=== PATIENT | female | born 1950 | race Caucasian/White ===

== ENCOUNTER 2016-07-08 07:55 | Emergency (ER) | payer BC, OTHER ==
[~2016-07-08] VITALS: Ht 165.1 cm; Wt 94.5 kg
[~2016-07-08 07:55] MED LIST: ACET-1256 PO; ALUMSUS2 PO; AMIO200T4 PO; AMLO5TAB2 PO; ARNI60 SQ; ASPCH81X PO; B-COTAB18 PO; BISA10SU7 PR; CALC667C4 PO; CHOL2000 PO; CLOP1TAB15 PO; DOCU100C31 PO; ERGO1CAP41 PO; FURO80TA63 PO; GABA1CAP4 PO; GEMF600T3 PO; INSDGIPEN SC; ISOS60TA25 PO; LPR100 PO; LPT40 PO; LYR25 PO; NVLGI/PEN SQ; ONDA4TAB46 PO; PANT40TA PO; POLY3350 PO
[2016-07-08 08:03] VITALS: Ht 165.1 cm; Wt 94.5 kg
[2016-07-08] MEDS ORDERED: LIDOCAINE/EPINEPH/TETRACAINE 1 EA SYR EXT STA (09:06)
[2016-07-08] MEDS ORDERED: AMOX500C3 PO (11:00)
[2016-07-08 11:21] VITALS: BP 155/64; PULSE 61; TEMP 36.5; O2SAT 97
--- NOTE | 2016-07-08 14:01 | EMERGENCY ROOM VISIT NOTE ---
History First contact with patient: 08:34 Chief Complaint: FALL Stated Complaint: FALL History of Present Illness The patient is a 66 year old female who presents to the Emergency Room with complaints of fall that occurred about one hour ago at home. The patient has a history of diabetes with a right below the knee amputation. The patient has had a very slow healing process over the incision of the AP patient. She follows weekly with the wound care clinic. The patient got out of bed today, and was using her walker to ambulate. She lost her balance, and fell forward over the walker. She struck her right leg against the walker, which caused a small area to dehisce. The patient has had persistent bleeding from the dehisced area and she is on Plavix. The patient did not strike her head or lose consciousness. She does not have extremity pain. Her primary concern is for her leg. She has an appointment with the wound care clinic in 6 days. She is without other complaints. Review of Systems More than 10 systems were reviewed and otherwise negative with the exception of history of present illness. 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 (17) Gangrene (18) GI (gastrointestinal bleed) (19) Gout (20) History of colon cancer (21) Hx of right BKA (22) Hypercholesterolemia (23) Hyperlipidemia (24) Hypertension (25) Hypertension (26) Ischemic ulcer of foot (27) Kidney disease (28) Obesity (29) Paroxysmal supraventricular tachycardia (30) Peripheral artery disease (31) Post-polypectomy bleeding (32) PVD (peripheral vascular disease) (33) Wound infection Surgical Problems: (1) Amputated toe of left foot (2) History of cataract extraction (3) History of colon resection (4) History of hysterectomy (5) History of tonsillectomy Family History FHx: musculoskeletal disease Social History Smoking Status: Never Smoker Drug Use: none Marital Status: Housing Status: lives with significant other Occupation Status: retired Current/Historical Medications Scheduled Amiodarone Hcl (Cordarone), 200 MG PO BID Amlodipine Besylate (Norvasc), 5 MG PO QAM Amoxicillin (Amoxil), 500 MG PO TID Aspirin (Aspirin Chewable), 81 MG PO DAILY Atorvastatin (Atorvastatin Calcium), 40 MG PO QAM B-Complex Vitamins (Vitamin B Complex), 1 TAB PO QAM Calcium Acetate (Phoslo 667 Mg), 1 CAP PO TIDM Cholecalciferol (Vitamin D3), 2,000 UNITS PO QAM Clopidogrel (Plavix), 75 MG PO QAM Darbepoetin (Aranesp Albumin Free), 60 MCG SQ WK Furosemide (Lasix), 80 MG PO BID Gabapentin (Gabapentin), 300 MG PO BID Gemfibrozil (Lopid), 600 MG PO BID Insulin Glargine (Lantus Solostar), 36 UNITS SC AMPM Isosorbide Mononitrate Ext Rel (Imdur Ext Rel), 60 MG PO QAM Metoprolol Tartrate (Metoprolol Tartrate), 100 MG PO BID Pregabalin (Lyrica), 25 MG PO HS Scheduled PRN Acetaminophen (Tylenol), 1,000 MG PO Q8 PRN for MILD PAIN Allergies Coded Allergies: No Known Allergies (Verified , 07/08/16) Physical Exam Vital Signs Date Time Temp Pulse Resp B/P Pulse Ox O2 Delivery O2 Flow Rate FiO2 07/08/16 11:21 36.5 61 155/64 97 07/08/16 09:49 55 18 152/54 96 Room Air 07/08/16 08:03 36.5 61 18 145/59 98 Room Air Pain Rating (0-10): 0 Physical Exam VITALS: Vitals are noted on the nurse's note and reviewed by myself. Vital signs stable. GENERAL: Well-developed, well-nourished, white female, who is in no acute distress and resting comfortably. Patient is cooperative with the examination. HEAD: Normocephalic atraumatic. EARS: External ear normal. External auditory canals clear, tympanic membranes pearly ross without erythema or effusion bilaterally. EYES: Pupils equal round and reactive to light and accommodation. Conjunctivae without injection, sclerae without icterus. Extraocular movements intact. NECK: Supple without nuchal rigidity. No lymphadenopathy. No thyromegaly. Cervical spine is nontender. HEART: Regular rate and rhythm without murmurs gallops or rubs. LUNGS: Clear to auscultation bilaterally without wheezes, rales or rhonchi. No retractions or accessory muscle use. MUSCULOSKELETAL: No injury to the bilateral upper extremities or the left lower extremity. The right lower extremity is with a below the knee amputation of the right ankle and foot. The patient has a fairly well-healed incision from her amputation laterally. The center and medial aspect has a 4.0 cm long area of dehiscence. There is oozing of blood from this area. NEURO: Patient was alert and oriented to person place and time. CN II through XII grossly intact. Medical Decision & Procedures Medications Administered Medications (Trade) Dose Ordered Sig/Sheela Route Start Time Stop Time Status Last Admin Dose Admin Tetracaine/ Epinephrine/ Lidocaine (L.e.t. Gel 4%/ 1:100/0.5%) 1 ea NOW STAT EXT 07/08/16 09:06 07/08/16 09:07 DC 07/08/16 09:21 1 EA Procedure Laceration repair. Patient elects to have their laceration repaired. Verbal consent was obtained to perform the procedure. There is an abundance of materials available for the procedure. Patient is not allergic to latex. Using sterile technique the wound was cleaned with Betadine. The area was sterilely draped. LEG Gel was used to anesthetize the right leg dehisced wound/ laceration. Once the patient was anesthetized, the wound was copiously irrigated under pressure with sterile saline. The wound was explored and there were no deep structures injured such as tendons, bone, or significant blood vessels. The laceration was repaired using 7 simple interrupted 4-0 nylon sutures with the wound edges being well approximated. Hemostasis was achieved. The area was cleaned with sterile saline and dressed with bacitracin ointment and bandage. Patient tolerated the procedure well without complications. Blood loss was negligible. ED Course Physical exam and history were performed. Nursing notes and EMR were reviewed. Patient appears to have fallen and suffered injury to her right lower leg primarily in the form of a wound dehisced. The patient does not appear to have suffered additional injury, and otherwise appears quite pleasant. I have concern for the patient's wound as the skin in the area is thin, and although she does not have a true laceration, I am highly concerned that this dehiscence will worsen. I discussed options of care with the patient, and overall we agree that suture repair is likely going to provide the best possible outcome for the patient. The wound was repaired as above, and the patient tolerated the procedure well. I do have concern that with her diabetic history she will be at risk for infection. She is evidently tolerated amoxicillin well, and she has been given this previously by the wound clinic. I will give her a week prescription of this to reduce risk of infection. She has an upcoming appointment in 6 days with the wound care clinic, and I highly recommend that she keep that appointment. The patient was pleased with this plan and voiced understanding. She was discharged home with her who will be able to monitor her symptoms. She is to take every precaution to prevent further falls. The chart was completed utilizing [employer] Speech Voice Recognition Software. Grammatical errors, random word insertions, pronoun errors, and incomplete sentences are an occasional consequence of this system due to software limitations, ambient noise, and hardware issues. Any formal questions or concerns about the content, text, or information contained within the body of this dictation should be directly addressed to the provider for clarification. . Medical Decision Differential diagnosis includes, but is not limited to: Fall, laceration, abrasion, wound dehiscence, musculoskeletal injury, and others Impression Primary Impression: Fall Additional Impression: Wound dehiscence Departure Information Dispostion Home / Self-Care Condition GOOD Prescriptions Amoxicillin (AMOXIL) 500 Mg Cap 500 MG PO TID for 7 Days, #21 CAP Prov: Amol Figueroa PA-C 07/08/16 Forms HOME CARE DOCUMENTATION FORM, IMPORTANT VISIT INFORMATION Patient Instructions A Signature Page, [facility] Additional Instructions You were seen and evaluated today on an emergency basis only. This is not a substitute for, or an effort to provide, complete comprehensive medical care. It is not possible to recognize and treat all injuries or illnesses in a single emergency department visit. For this reason it is recommended that you followup with the wound clinic on Wednesday as scheduled. They will help determine the timeframe for removal of your sutures. Take amoxicillin 500 mg 3 times daily for the next 7 days. You are welcome to return to the emergency department anytime with new, worsening, or concerning symptoms. Problem Qualifiers
[2016-07-23] MEDS ORDERED: AMOX250C3 PO (10:14)
[2016-10-02] MEDS ORDERED: ERGO1CAP41 PO (00:13)
[2016-10-11] MEDS ORDERED: SACC250C3 PO (11:40)
[2016-10-11] MEDS ORDERED: AMOX875T PO (11:40)
[2016-10-11] MEDS ORDERED: INSDGIPEN SQ (11:40)
[2016-10-11] MEDS ORDERED: IMD2X PO (11:40)
[2016-10-11] MEDS ORDERED: LSX40 PO (11:40)
[2016-10-11] MEDS ORDERED: VNTHFA/IN INH (11:40)
[2016-10-11] MEDS ORDERED: LVQ250 PO (11:40)
[2016-12-10] MEDS ORDERED: LEVO25TA PO (10:41)
== END 2016-07-08 11:22 | disposition home or self-care (01) ==
LOC: C.EDB 07:56
DX: T81.31XA Disruption of external operation (surgical) wound, not elsewhere classified, initial encounter (principal); W19.XXXA Unspecified fall, initial encounter; E11.43 Type 2 diabetes mellitus with diabetic autonomic (poly)neuropathy; Z89.511 Acquired absence of right leg below knee; Z98.890 Other specified postprocedural states; Z79.01 Long term (current) use of anticoagulants; I50.9 Heart failure, unspecified; Z85.038 Personal history of other malignant neoplasm of large intestine; N18.6 End stage renal disease; I12.0 Hypertensive chronic kidney disease with stage 5 chronic kidney disease or end stage renal disease; M10.9 Gout, unspecified; E78.00 Pure hypercholesterolemia, unspecified; E66.9 Obesity, unspecified; Z90.710 Acquired absence of both cervix and uterus; Z90.49 Acquired absence of other specified parts of digestive tract; Z98.49 Cataract extraction status, unspecified eye; Z79.4 Long term (current) use of insulin; Z79.899 Other long term (current) drug therapy; Z79.82 Long term (current) use of aspirin; I73.9 Peripheral vascular disease, unspecified; I47.1 Supraventricular tachycardia

== ENCOUNTER → 2016-09-21 | Outpatient (CLI) | payer BC ==
[~2016-09-21] MED LIST changes: -ALUMSUS2 PO; +AMOX875T PO; -BISA10SU7 PR; +FURO-85 PO; +IMD2X PO; +INSDGIPEN SQ; +LEVO25TA PO; +LSX40 PO; +LVQ250 PO; -ONDA4TAB46 PO; -PANT40TA PO; -POLY3350 PO; +SACC250C3 PO; +SENN-65 PO; +TRAM-10 PO; +VNTHFA/IN INH; +ZOLP5TAB6 PO; +[UNRECOGNIZED DRUG - CODE] INJ
[2016-09-21 10:01] LABS: ESTIMATED AVERAGE GLUCOSE 157 mg/dl; HA1C FLAG Normal (Normal)
[2016-09-21 11:04] LABS: ALB/GLOB RATIO 0.7 (0.9-2); ALKALINE PHOSPHATASE 92 U/L (45-117); ALT/SGPT 25 U/L (12-78); AST/SGOT 14 U/L (15-37); BLOOD UREA NITROGEN 60 mg/dl (7-18); BUN/CREATININE RATIO 8.1 (10-20); CALCIUM 8.4 mg/dl (8.5-10.1); CARBON DIOXIDE 30 mmol/L (21-32); CHLORIDE 92 mmol/L (98-107); CHOLESTEROL 304 mg/dl (0-200); CHOLESTEROL/HDL RATIO 10.9; GLUCOSE 141 mg/dl (70-99); HDL CHOLESTEROL 28 mg/dl; POTASSIUM 4.3 mmol/L (3.5-5.1); SODIUM 133 mmol/L (136-145); TRIGLYCERIDES 1516 mg/dl (0-150)
== END | disposition home or self-care (01) ==
LOC: C.LAB1850 06:56
PROVIDERS: ATTEND Family Medicine
DX: E78.5 Hyperlipidemia, unspecified (principal); E11.8 Type 2 diabetes mellitus with unspecified complications

== ENCOUNTER 2016-10-01 23:07 | Inpatient (IN) | payer BC, OTHER ==
[~2016-10-01] VITALS: Ht 165.1 cm; Wt 102.3 kg
[~2016-10-01 23:07] MED LIST changes: -AMOX875T PO; -DOCU100C31 PO; -ERGO1CAP41 PO; -FURO-85 PO; -IMD2X PO; -INSDGIPEN SQ; -LEVO25TA PO; -LSX40 PO; -LVQ250 PO; -NVLGI/PEN SQ; -SACC250C3 PO; -SENN-65 PO; -TRAM-10 PO; -VNTHFA/IN INH; -ZOLP5TAB6 PO; -[UNRECOGNIZED DRUG - CODE] INJ
[2016-10-01] MEDS ORDERED: VANCOMYCIN INJ 2,000 MG in SODIUM CHLORIDE 0.9% 250ML 250 ML IV STA (23:23)
[2016-10-01] MEDS ORDERED: PIPERACILLIN/TAZOBACTAM 4.5 GM/100ML D5W IV STA (23:23)
[2016-10-01] MEDS ORDERED: VANCOMYCIN INJ 2,000 MG in SODIUM CHLORIDE 0.9% 500ML 500 ML IV STA (23:28)
[2016-10-01 23:48] LABS: BASO % 0.5 %; BASO ABS # 0.03 K/uL (0-0.2); COMPLETE YES; EOS % 0.6 %; HEMATOCRIT 29.8 % (37-47); IG% 0.3 %; LYMPH % 14.5 %; LYMPH ABS # 0.93 K/uL (1.2-3.4); MEAN CELL VOLUME 93.4 fL (80-100); MEAN CORPUSCULAR HEMOGLOBIN 32.3 pg (25-34); MEAN CORPUSCULAR HGB CONC 34.6 g/dl (32-36); MEAN PLATELET VOLUME 9.3 fL (7.4-10.4); MONO % 6.6 %; NEUT % 77.5 %; PLATELET COUNT 158 K/uL (130-400); RED BLOOD COUNT 3.19 M/uL (4.2-5.4); WHITE BLOOD COUNT 6.41 K/uL (4.8-10.8)
[2016-10-01 23:48] LABS: ISTAT CREATININE 4.1 mg/dl (0.6-1.3); ISTAT HEMOGLOBIN 9.9 g/dl (12.0-16.0); ISTAT IONIZED CALCIUM 1.03 mmol/l (1.12-1.32)
[2016-10-01] MEDS ORDERED: IBUPROFEN 600 MG TAB PO STA (23:48)
[2016-10-01 23:54] LABS: VEN BLD GAS O2 SATURATION 74.8 %; VEN BLOOD GAS BASE EXCESS 5.8 mmol/L; VENOUS BLOOD GAS PCO2 40 mmHg (38.0-50.0); VENOUS BLOOD GAS PO2 39 mmHg
[2016-10-01 23:56] LABS: INR 1.2 (0.9-1.1); PROTHROMBIN TIME (PATIENT) 12.4 SECONDS (9.0-12.0)
[2016-10-02] VITALS (25 sets, daily range): BP systolic 105–181; BP diastolic 50–72; PULSE 60–97; TEMP 36.6–37.9; O2SAT 90–100; BMI 39.3
[2016-10-02] MEDS ORDERED: DOCU100C31 PO (00:11)
[2016-10-02 00:13] LABS: BUN/CREATININE RATIO 5.9 (10-20); CALCIUM 8.7 mg/dl (8.5-10.1); CKMB/CK RATIO 0.8 (0-3.0); CREATININE 4.2 mg/dl (0.60-1.20); MAGNESIUM 1.9 mg/dl (1.8-2.4); POTASSIUM 4.1 mmol/L (3.5-5.1)
[2016-10-02] MEDS ORDERED: ERGO500011 PO (00:13)
[2016-10-02] MEDS ORDERED: FURO-85 PO (00:14)
[2016-10-02] MEDS ORDERED: NVLGI/PEN SQ (00:16)
[2016-10-02] MEDS ORDERED: INSDGIPEN SQ (00:23)
[2016-10-02 00:25] LABS: URINE APPEARANCE CLEAR (CLEAR); URINE BILIRUBIN NEG (NEG); URINE COLOR YELLOW; URINE NITRITE NEG (NEG); URINE PH >= 9.0 (4.5-7.5); URINE SPECIFIC GRAVITY 1.012 (1.000-1.030); UROBILINOGEN NEG (NEG); ZZURINE CULT IF INDIC CATH NO
[2016-10-02] MEDS ORDERED: [UNRECOGNIZED DRUG - CODE] INJ (00:29)
[2016-10-02 00:32] LABS: MANUAL MICROSCOPIC REQUIRED? NO; REVIEW REQ? NO; SULFASALICYLIC ACID POS (NEG)
[2016-10-02] MEDS ORDERED: TRAM-10 PO (00:32)
[2016-10-02] MEDS ORDERED: ZOLP5TAB6 PO (00:35)
[2016-10-02] MEDS ORDERED: SENN-65 PO (00:37)
[2016-10-02] MEDS ORDERED: GLUCAGON FOR INJ 1 MG VIAL SQ PRN (01:00)
[2016-10-02] MEDS ORDERED: VANCOMYCIN INJ 1,000 MG in SODIUM CHLORIDE 0.9% 250ML 250 ML IV STA (01:00)
[2016-10-02] MEDS ORDERED: ONDANSETRON INJ 2 MG/ML 2 ML VIAL IV PRN (01:00)
[2016-10-02] MEDS ORDERED: GLUCOSE 40% GEL 15 GM TUBE PO PRN (01:00)
[2016-10-02] MEDS ORDERED: GLUCOSE 10 TABS/TUBE PO PRN (01:00)
[2016-10-02] MEDS ORDERED: DEXTROSE 50% 50 ML SYR IV PRN (01:00)
[2016-10-02] MEDS ORDERED: DOCUSATE SODIUM/SENNA 50/8.6MG TAB PO PRN (01:00)
[2016-10-02] MEDS ORDERED: ZOLPIDEM TARTRATE 5 MG TAB PO PRN (01:00)
[2016-10-02] MEDS ORDERED: TRAMADOL HCL 50 MG TAB PO PRN (01:00)
[2016-10-02] MEDS ORDERED: LEVALBUTEROL 1.25MG/0.5ML NEB INH PRN (01:45)
[2016-10-02] MEDS ORDERED: IPRATROPIUM BROMIDE NEB SOLN 0.02% 2.5 ML VIAL INH PRN (01:45)
--- NOTE | 2016-10-02 01:51 | EMERGENCY ROOM VISIT NOTE ---
History Report prepared by Jacobo: Yecenia Ellison Under the Supervision of: Marin KoenigO. First contact with patient: 23:16 Chief Complaint: FEVER Stated Complaint: FEVER, CHILLS, SHAKY History of Present Illness The patient is a 66 year old female who presents to the Emergency Room with complaints of a constant fever beginning just CAR STOWER. Per nursing staff the patient was at dialysis and [facility] shaking, feeling week, fever of 103, and hypoxia. EMS reports that the patient was 79% on room air at arrival. She denies any shortness of breath, headache, chest pain , cough, productive sputum, asthma, COPD, abdominal history, nausea, vomiting, urinary symptoms, and blood clot history. The patient is s/p right knee amputation for PAD and cellulitis. She notes that her chills began last night. She has no other complaints at this time. She did receive a total of 3 hours worth of dialysis and was pulled off because of her shaking 45 minutes prior to the conclusion of her dialysis. Source of History: patient Onset: just CAR STOWER Position: other (global) Symptom Intensity: 103 Quality: other (fever) Timing: constant Modifying Factors (Worsening): breathing Associated Symptoms: + fevers, + weakness, No SOB, No abdominal pain, No chest pain, No cough, No diarrhea, No headache, No nausea, No urinary symptoms, No vomiting Review of Systems See HPI for pertinent positives & negatives. A total of 10 systems reviewed and were otherwise negative. Past Medical & Surgical Medical Problems: (1) Acute on chronic renal failure (2) Amputated toe of left foot (3) Anemia (4) Anemia (5) Cellulitis (6) CHF (congestive heart failure) (7) Colon cancer (8) Diabetes mellitus (9) Diabetes mellitus (10) Diabetic neuropathy (11) Diabetic ulcer of left great toe (12) Elevated troponin (13) End stage renal disease (14) End-stage renal disease on hemodialysis (15) ESRD on dialysis (16) Fistula (17) Gangrene (18) GI (gastrointestinal bleed) (19) Gout (20) History of colon cancer (21) Hx of right BKA (22) Hypercholesterolemia (23) Hyperlipidemia (24) Hypertension (25) Hypertension (26) Hypoxia (27) Ischemic ulcer of foot (28) Kidney disease (29) Obesity (30) Paroxysmal supraventricular tachycardia (31) Peripheral artery disease (32) Post-polypectomy bleeding (33) PVD (peripheral vascular disease) (34) SIRS (systemic inflammatory response syndrome) (35) Wound infection Surgical Problems: (1) Amputated toe of left foot (2) History of cataract extraction (3) History of colon resection (4) History of hysterectomy (5) History of tonsillectomy Family History FHx: musculoskeletal disease Social History Smoking Status: Never Smoker Drug Use: none Marital Status: Housing Status: lives with significant other Occupation Status: retired Current/Historical Medications Scheduled Amiodarone Hcl (Cordarone), 200 MG PO BID Amlodipine Besylate (Norvasc), 5 MG PO QAM Atorvastatin (Atorvastatin Calcium), 40 MG PO QAM B-Complex Vitamins (Vitamin B Complex), 1 TAB PO QAM Calcium Acetate (Phoslo 667 Mg), 667 MG PO TIDM Clopidogrel (Plavix), 75 MG PO QAM Darbepoetin (Aranesp Albumin Free), 60 MCG SQ WK Docusate Sodium (Docusate Sodium), 100 MG PO BID Ergocalciferol (Vitamin D 15071 Unit), 50,000 UNITS PO WK Furosemide (Lasix), 20 MG PO BID Gabapentin (Gabapentin), 300 MG PO BID Gemfibrozil (Lopid), 600 MG PO BID Insulin Aspart (Novolog Flexpen), SQ ACHS Insulin Glargine (Lantus Solostar), 36 UNITS SC QAM Insulin Glargine (Lantus Solostar), 70 UNITS SQ QPM Isosorbide Mononitrate Ext Rel (Imdur Ext Rel), 60 MG PO QAM Metoprolol Tartrate (Metoprolol Tartrate), 100 MG PO BID Paricalcitol (Paricalcitol), 1.5 ML INJ 3XWK Pregabalin (Lyrica), 25 MG PO BID Scheduled PRN Acetaminophen (Tylenol), 1,000 MG PO Q8 PRN for MILD PAIN Senna/Docusate Sod (Senokot S), 1 TAB PO DAILY PRN for Constipation Tramadol (Ultram), 50 MG PO Q4H PRN for Pain Zolpidem Tartrate (Zolpidem Tartrate), 5 MG PO HS PRN for Insomnia Allergies Coded Allergies: No Known Allergies (Verified , 07/08/16) Physical Exam Vital Signs Date Time Temp Pulse Resp B/P Pulse Ox O2 Delivery O2 Flow Rate FiO2 10/02/16 00:00 99 20 139/63 92 Nasal Cannula 4.0 10/01/16 23:30 88 10/01/16 23:17 91 Non-Rebreather 15.0 10/01/16 23:11 38.1 81 22 175/75 79 Room Air Physical Exam GENERAL: sitting up in bed, sever distress, ill appearing, on non-rebreather EYE EXAM: normal conjunctiva OROPHARYNX: no exudate, no erythema, lips, buccal mucosa, and tongue normal and mucous membranes are moist NECK: supple, no nuchal rigidity, no adenopathy, non-tender, no JVD LUNGS: Clear to auscultation. Normal chest wall mechanics HEART: no murmurs, S1 normal and S2 normal. ABDOMEN: abdomen soft, non-tender, normo-active bowel sounds, no masses, no rebound or guarding. BACK: Back is symmetrical on inspection and there is no deformity, no midline tenderness, no CVA tenderness. SKIN: no rashes and no bruising UPPER EXTREMITIES: upper extremities are grossly normal. Fistula in place with positive bruit. LOWER EXTREMITIES: No pitting edema. RLE BKA. NEURO EXAM: Alert but slightly confused to year, cranial nerves II-XII grossly intact, normal speech, no gross weakness of arms, no gross weakness of legs. Medical Decision & Procedures ER Provider Diagnostic Interpretation: X-Ray results as stated below per my review: Chest X-Ray Enlarged cardiac silhouette, congestive changes bilaterally. Laboratory Results 10/01/16 23:33 Red Blood Count 3.19, Mean Corpuscular Volume 93.4, Mean Corpuscular Hemoglobin 32.3, Mean Corpuscular Hemoglobin Concent 34.6, Mean Platelet Volume 9.3, Neutrophils (%) (Auto) 77.5, Lymphocytes (%) (Auto) 14.5, Monocytes (%) (Auto) 6.6, Eosinophils (%) (Auto) 0.6, Basophils (%) (Auto) 0.5, Neutrophils # (Auto) 4.97, Lymphocytes # (Auto) 0.93, Monocytes # (Auto) 0.42, Eosinophils # (Auto) 0.04, Basophils # (Auto) 0.03 10/01/16 23:33 Test 10/01/16 00:00 10/01/16 23:28 10/01/16 23:33 10/01/16 23:34 Urine Color YELLOW Urine Appearance CLEAR (CLEAR) Urine pH >= 9.0 (4.5-7.5) Urine Specific [place] 1.012 (1.000-1.030) Urine Protein 1+ (NEG) Urine Glucose (UA) 1+ (NEG) Urine Ketones NEG (NEG) Urine Occult Blood TRACE (NEG) Urine Nitrite NEG (NEG) Urine Bilirubin NEG (NEG) Urine Urobilinogen NEG (NEG) Urine Leukocyte Esterase NEG (NEG) Urine WBC (Auto) 0 /hpf (0-5) Urine RBC (Auto) 0-4 /hpf (0-4) Urine Hyaline Casts (Auto) 1-5 /lpf (0-5) Urine Epithelial Cells (Auto) 10-20 /lpf (0-5) Urine Bacteria (Auto) NEG (NEG) Bedside Lactic Acid Venous 2.17 mmol/L (0.90-1.70) White Blood Count 6.41 K/uL (4.8-10.8) Red Blood Count 3.19 M/uL (4.2-5.4) Hemoglobin 10.3 g/dL (12.0-16.0) Hematocrit 29.8 % (37-47) Mean Corpuscular Volume 93.4 fL (80-100) Mean Corpuscular Hemoglobin 32.3 pg (25-34) Mean Corpuscular Hemoglobin Concent 34.6 g/dl (32-36) Platelet Count 158 K/uL (130-400) Mean Platelet Volume 9.3 fL (7.4-10.4) Neutrophils (%) (Auto) 77.5 % Lymphocytes (%) (Auto) 14.5 % Monocytes (%) (Auto) 6.6 % Eosinophils (%) (Auto) 0.6 % Basophils (%) (Auto) 0.5 % Neutrophils # (Auto) 4.97 K/uL (1.4-6.5) Lymphocytes # (Auto) 0.93 K/uL (1.2-3.4) Monocytes # (Auto) 0.42 K/uL (0.11-0.59) Eosinophils # (Auto) 0.04 K/uL (0-0.5) Basophils # (Auto) 0.03 K/uL (0-0.2) RDW Standard Deviation 53.5 fL (36.4-46.3) RDW Coefficient of Variation 15.7 % (11.5-14.5) Immature Granulocyte % (Auto) 0.3 % Immature Granulocyte # (Auto) 0.02 K/uL (0.00-0.02) Prothrombin Time 12.4 SECONDS (9.0-12.0) Prothromb Time International Ratio 1.2 (0.9-1.1) Venous Blood pH 7.49 (7.36-7.41) Venous Blood Partial Pressure CO2 40 mmHg (38.0-50.0) Venous Blood Partial Pressure O2 39 mmHg Venous Blood HCO3 30 mmol/L Venous Blood Oxygen Saturation 74.8 % Venous Blood Base Excess 5.8 mmol/L Est Creatinine Clear Calc Drug Dose 15.8 ml/min Estimated GFR () 11.9 Estimated GFR (Non- 10.3 BUN/Creatinine Ratio 5.9 (10-20) Calcium Level 8.7 mg/dl (8.5-10.1) Magnesium Level 1.9 mg/dl (1.8-2.4) Total Bilirubin 0.4 mg/dl (0.2-1) Direct Bilirubin 0.1 mg/dl (0-0.2) Aspartate Amino Transf (AST/SGOT) 20 U/L (15-37) Alanine Aminotransferase (ALT/SGPT) 21 U/L (12-78) Alkaline Phosphatase 90 U/L (45-117) Total Protein 7.7 gm/dl (6.4-8.2) Albumin 3.1 gm/dl (3.4-5.0) Chemistry Specimen Hemolysis Bedside Hemoglobin 9.9 g/dl (12.0-16.0) Bedside Hematocrit 29 % (37-47) Bedside Sodium 135 mEq/L (135-144) Bedside Potassium 4.3 mEq/L (3.3-5.0) Bedside Chloride 96 mEq/L (101-112) Bedside Total CO2 28 mEq/l (24-31) Anion Gap 17.0 mmol/L (16-25) Bedside Blood Urea Nitrogen 26 mg/dl (7-18) Bedside Creatinine 4.1 mg/dl (0.6-1.3) Bedside Glucose (other) 119 mg/dl (70-99) Bedside Ionized Calcium (Gabriella) 1.03 mmol/l (1.12-1.32) Test 10/02/16 00:00 10/02/16 00:36 Influenza Type A Antigen Neg for Influ A (NEG) Influenza Type B Antigen Neg for Influ B (NEG) Bedside Glucose 122 mg/dl (70-90) Laboratory results per my review. Medications Administered Medications (Trade) Dose Ordered Sig/Sheela Route Start Time Stop Time Status Last Admin Dose Admin Piperacillin Sod/ Tazobactam Sod 4.5 gm 4.5 gm NOW STAT IV 10/01/16 23:23 10/01/16 23:25 DC 10/01/16 23:46 4.5 GM Vancomycin HCl/ Sodium Chloride (Vancomycin Inj/ Nss 500ml) 540 ml @ 125 mls/hr NOW STAT IV 10/01/16 23:28 10/02/16 03:47 10/02/16 00:16 125 MLS/HR Ibuprofen (Motrin Tab) 600 mg NOW STAT PO 10/01/16 23:48 10/01/16 23:49 DC 10/02/16 00:10 600 MG ECG Indication: other (hypoxia) Rate (beats per minute): 90 Rhythm: sinus rhythm Findings: RBBB, ST depression (AVF), other (poor baseline in the inferior) Comparison ECG Date: 06/07/2016 Change: RBBB is old ED Course ED COURSE: Vital signs were reviewed and showed hypoxia The patients medical record was reviewed The above diagnostic studies were performed and reviewed. ED treatments and interventions as stated above. 2316: The patient was evaluated in room A2. A complete history and physical examination was performed. 2323: Zosyn IV 4.5gm IV. 2328: Vancomycin HCl 2000mg/Sodium Chloride 540ml @ 125mls/hr IV. 2348: Motrin Tab 600mg PO. 0008: I reviewed the patient's case with Dr. Ren. He will evaluate the patient for further management. 0014: I reevaluated the patient. She has no complaints and is on 5L of oxygen. 0027: Upon reevaluation, the patient is hemodynamically stable.I discussed my findings with the patient and she understands and agrees with the treatment plan. Based on the patients age, coexisting illnesses, exam and lab findings the decision to treat as an inpatient was made. The patient remained stable while under my care. The patient will be evaluated for further management. Medical Decision Differential diagnoses includes but is not limited to pneumonia, bronchitis, COPD/Asthma exacerbation, pneumothorax, pulmonary embolism, congestive heart failure, acute coronary syndrome Patient is a 66-year-old female who presents the ER for hypoxia with a pulse ox of 79% on room air and a fever of 104 per EMS. She was given Tylenol. Labs show no significant leukocytosis or anemia. BMP shows a creatinine of 4 which is appropriate for dialysis. Lactate is elevated at 2.1. BMP along with LFTs was unremarkable. Troponin was detectable but not positive. Chest x-ray shows slight pulmonary edema. UA was unremarkable. Influenza A and B were negative. ABG shows a pH is 7.49. Patient was initially placed on nonrebreather and this is titrated down to nasal cannula. Patient has absolutely no complaints at this time. I did update the at bedside. Patient was admitted to internal medicine on nasal cannula with new oxygen requirements. Chest x-ray does appear to be slightly wet but she does not appear clinically to be in fulminant failure. She is no chest pain or symptoms to suggest a PE at this time. With that elevated fever I do favor hits likely more infectious. She was covered with Zosyn and vancomycin. Patient was admitted to internal medicine. Consults Time Called: 1 Consulting Physician: Dr. Ren - [facility] [place] Returned Call: [phone] I reviewed the patient's case with Dr. Ren. He will evaluate the patient for further management. Impression Primary Impression: Hypoxia Additional Impressions: Fever Chronic anemia Lactic acidosis CHF (congestive heart failure) Scribe Attestation The scribe's documentation has been prepared under my direction and personally reviewed by me in its entirety. I confirm that the note above accurately reflects all work, treatment, procedures, and medical decision making performed by me. Departure Information Dispostion Being Evaluated By Hospitalist Referrals Renae Whitfield DO (PCP) Patient Instructions My [facility] Problem Qualifiers Additional Impressions: Fever Fever type: unspecified Qualified Codes: R50.9 - Fever, unspecified CHF (congestive heart failure) Congestive heart failure type: unspecified congestive heart failure type Congestive heart failure chronicity: acute Qualified Codes: I50.9 - Heart failure, unspecified
[2016-10-02] MEDS: LEVALBUTEROL 1.25MG/0.5ML NEB INH SCH ×4 (02:00→19:46)
[2016-10-02] MEDS: IPRATROPIUM BROMIDE NEB SOLN 0.02% 2.5 ML VIAL INH SCH ×4 (02:00→19:46)
[2016-10-02] MEDS ORDERED: LEVOFLOXACIN CONSULT ACTIVE PRN (02:30)
[2016-10-02] MEDS ORDERED: VANCOMYCIN CONSULT ACTIVE PRN (02:30)
[2016-10-02] MEDS ORDERED: PIPERACILL/TAZOBAC CONSULT ACTIVE PRN (02:30)
[2016-10-02] MEDS ORDERED: LEVALBUTEROL/IPRATROPIUM NEB INH SCH (03:00)
[2016-10-02] MEDS ORDERED: LEVOFLOXACIN / D5W 500 MG in PREMIXED IN D5W 100 ML IV SCH (04:00)
--- NOTE | 2016-10-02 05:41 | History and Physical ---
History & Physical Date & Time of Service: Oct 02, 2016 at 05:23 Chief Complaint: Hypoxia, Sirs Primary Care Physician: Bridget Ramirez History of Present Illness Source: patient, spouse The patient is a 66-year-old female who presents to the emergency department with shakes, generalized weakness, fever of 103 and hypoxemia of 79% on room air. Her symptoms initially began at dialysis in the morning, which she reports was cut short, and she was taken back to [facility] where she was getting rehabilitation following her right BKA surgery. Past Medical/Surgical History Medical Problems: (1) Acute on chronic renal failure Status: Resolved (2) Anemia Status: Resolved (3) Anemia Status: Resolved (4) Cellulitis Status: Resolved (5) CHF (congestive heart failure) Status: Chronic (6) Colon cancer Status: Resolved (7) Diabetes mellitus Status: Chronic (8) Diabetic neuropathy Status: Chronic (9) Diabetic ulcer of left great toe Status: Resolved (10) Elevated troponin Status: Resolved (11) End stage renal disease Status: Chronic (12) End-stage renal disease on hemodialysis Status: Chronic (13) Fistula Status: Chronic (14) Gangrene Status: Resolved (15) GI (gastrointestinal bleed) Status: Resolved (16) Gout Status: Chronic (17) Hypercholesterolemia Status: Chronic (18) Hyperlipidemia Status: Chronic (19) Hypertension Status: Chronic (20) Kidney disease Status: Chronic (21) Obesity Status: Chronic (22) Peripheral artery disease Status: Chronic (23) Post-polypectomy bleeding Status: Resolved Surgical Problems: (1) Amputated toe of left foot Status: Resolved (2) History of cataract extraction Status: Resolved (3) History of colon resection Status: Resolved (4) History of hysterectomy Status: Resolved (5) History of tonsillectomy Status: Resolved Family History FHx: musculoskeletal disease Social History Smoking Status: Never Smoker Smokeless Tobacco Use: No Alcohol Use: none Drug Use: none Marital Status: Housing status: lives with family Occupational Status: retired Immunizations History of Influenza Vaccine: Yes Influenza Vaccine Date: Apr 24, 2013 History of Tetanus Vaccine?: Unknown History of Pneumococcal: Pt refused History of Hepatitis B Vaccine: Unknown Multi-Drug Resistant Organisms History of MDRO: No Allergies Coded Allergies: No Known Allergies (Verified , 07/08/16) Home Medications Scheduled Amiodarone Hcl (Cordarone), 200 MG PO BID Amlodipine Besylate (Norvasc), 5 MG PO QAM Atorvastatin (Atorvastatin Calcium), 40 MG PO QAM B-Complex Vitamins (Vitamin B Complex), 1 TAB PO QAM Calcium Acetate (Phoslo 667 Mg), 667 MG PO TIDM Clopidogrel (Plavix), 75 MG PO QAM Darbepoetin (Aranesp Albumin Free), 60 MCG SQ WK Docusate Sodium (Docusate Sodium), 100 MG PO BID Ergocalciferol (Vitamin D 07688 Unit), 50,000 UNITS PO WK Furosemide (Lasix), 20 MG PO BID Gabapentin (Gabapentin), 300 MG PO BID Gemfibrozil (Lopid), 600 MG PO BID Insulin Aspart (Novolog Flexpen), SQ ACHS Insulin Glargine (Lantus Solostar), 36 UNITS SC QAM Insulin Glargine (Lantus Solostar), 70 UNITS SQ QPM Isosorbide Mononitrate Ext Rel (Imdur Ext Rel), 60 MG PO QAM Metoprolol Tartrate (Metoprolol Tartrate), 100 MG PO BID Paricalcitol (Paricalcitol), 1.5 ML INJ 3XWK Pregabalin (Lyrica), 25 MG PO BID Scheduled PRN Acetaminophen (Tylenol), 1,000 MG PO Q8 PRN for MILD PAIN Senna/Docusate Sod (Senokot S), 1 TAB PO DAILY PRN for Constipation Tramadol (Ultram), 50 MG PO Q4H PRN for Pain Zolpidem Tartrate (Zolpidem Tartrate), 5 MG PO HS PRN for Insomnia Review of Systems The patient denies chest pain, palpitations, cough, lower extremity swelling, vision change, hearing change, sore throat, chills, sweats, weight change, nausea, vomiting, abdominal pain, pelvic pain, blood in urine or stool, dysuria , urinary frequency or urgency, lightheadedness, dizziness, headache, memory loss, rash, abnormal bruising or bleeding, imbalance, focal weakness, numbness or tingling in arms or legs, arthralgias or myalgias, back or neck pain, night sweats, or allergy symptoms. The review of systems is otherwise negative other than for that already noted above, and at least 10 systems have been reviewed. Physical Exam Vital Signs Date Time Temp Pulse Resp B/P Pulse Ox O2 Delivery O2 Flow Rate FiO2 10/02/16 04:16 36.9 64 16 119/66 95 10/02/16 04:00 Nasal Cannula 4.0 10/02/16 01:55 73 18 93 Nasal Cannula 2.0 10/02/16 01:20 37.1 74 18 145/65 92 Nasal Cannula 4.0 10/02/16 01:09 37.8 93 19 142/56 Nasal Cannula 4.0 10/02/16 00:00 99 20 139/63 92 Nasal Cannula 4.0 10/01/16 23:30 88 10/01/16 23:17 91 Non-Rebreather 15.0 10/01/16 23:11 38.1 81 22 175/75 79 Room Air The patient is awake, alert and oriented 3, normocephalic and atraumatic, lying in bed and in no acute distress. HEENT--PERRL, EOMI, mucous membranes and oropharynx dry. Neck--supple, no JVD or bruits, thyroid normal, trachea midline, no adenopathy. Heart--normal S1 and S2, no extra beats, no murmurs, rubs or gallops. Lungs--coarse breath sounds bilaterally, no respiratory distress, no accessory muscle use. Abdomen--normal bowel sounds and soft, nontender and nondistended, no hernias or masses, no organomegaly. Extremities--right BKA-no cyanosis, clubbing or edema, with normal-appearing postsurgical wound. Left lower extremity with trace pitting edema, status post great toe amputation. Dermatologic--normal skin turgor, normal color, warm and dry, no abnormal lymph nodes, no rash. Neurologic--cranial nerves II through XII grossly intact. Rheumatologic--no acute findings. Psychiatric--normal affect. Diagnostics Laboratory Results Results Past 24 Hours Test 10/01/16 23:28 10/01/16 23:33 10/01/16 23:34 10/02/16 00:00 Range/Units Bedside Lactic Acid Venous 2.17 0.90-1.70 mmol/L White Blood Count 6.41 4.8-10.8 K/uL Red Blood Count 3.19 4.2-5.4 M/uL Hemoglobin 10.3 12.0-16.0 g/dL Hematocrit 29.8 37-47 % Mean Corpuscular Volume 93.4 80-100 fL Mean Corpuscular Hemoglobin 32.3 25-34 pg Mean Corpuscular Hemoglobin Concent 34.6 32-36 g/dl Platelet Count 158 130-400 K/uL Mean Platelet Volume 9.3 7.4-10.4 fL Neutrophils (%) (Auto) 77.5 % Lymphocytes (%) (Auto) 14.5 % Monocytes (%) (Auto) 6.6 % Eosinophils (%) (Auto) 0.6 % Basophils (%) (Auto) 0.5 % Neutrophils # (Auto) 4.97 1.4-6.5 K/uL Lymphocytes # (Auto) 0.93 1.2-3.4 K/uL Monocytes # (Auto) 0.42 0.11-0.59 K/uL Eosinophils # (Auto) 0.04 0-0.5 K/uL Basophils # (Auto) 0.03 0-0.2 K/uL RDW Standard Deviation 53.5 36.4-46.3 fL RDW Coefficient of Variation 15.7 11.5-14.5 % Immature Granulocyte % (Auto) 0.3 % Immature Granulocyte # (Auto) 0.02 0.00-0.02 K/uL Prothrombin Time 12.4 9.0-12.0 SECONDS Prothromb Time International Ratio 1.2 0.9-1.1 Venous Blood pH 7.49 7.36-7.41 Venous Blood Partial Pressure CO2 40 38.0-50.0 mmHg Venous Blood Partial Pressure O2 39 mmHg Venous Blood HCO3 30 mmol/L Venous Blood Oxygen Saturation 74.8 % Venous Blood Base Excess 5.8 mmol/L Sodium Level 136 136-145 mmol/L Potassium Level 4.1 3.5-5.1 mmol/L Chloride Level 95 98-107 mmol/L Carbon Dioxide Level 29 21-32 mmol/L Anion Gap 12.0 17.0 16-25 mmol/L Blood Urea Nitrogen 25 7-18 mg/dl Creatinine 4.20 0.60-1.20 mg/dl Est Creatinine Clear Calc Drug Dose 15.8 ml/min Estimated GFR () 11.9 Estimated GFR (Non- 10.3 BUN/Creatinine Ratio 5.9 10-20 Random Glucose 118 70-99 mg/dl Calcium Level 8.7 8.5-10.1 mg/dl Magnesium Level 1.9 1.8-2.4 mg/dl Total Bilirubin 0.4 0.2-1 mg/dl Direct Bilirubin 0.1 0-0.2 mg/dl Aspartate Amino Transf (AST/SGOT) 20 15-37 U/L Alanine Aminotransferase (ALT/SGPT) 21 12-78 U/L Alkaline Phosphatase 90 45-117 U/L Total Creatine Kinase 181 26-192 U/L Creatine Kinase MB 1.4 0.5-3.6 ng/ml Creatine Kinase MB Ratio 0.8 0-3.0 Troponin I 0.026 0-0.045 ng/ml Total Protein 7.7 6.4-8.2 gm/dl Albumin 3.1 3.4-5.0 gm/dl Chemistry Specimen Hemolysis Bedside Hemoglobin 9.9 12.0-16.0 g/dl Bedside Hematocrit 29 37-47 % Bedside Sodium 135 135-144 mEq/L Bedside Potassium 4.3 3.3-5.0 mEq/L Bedside Chloride 96 101-112 mEq/L Bedside Total CO2 28 24-31 mEq/l Bedside Blood Urea Nitrogen 26 7-18 mg/dl Bedside Creatinine 4.1 0.6-1.3 mg/dl Bedside Glucose (other) 119 70-99 mg/dl Bedside Ionized Calcium (Gabriella) 1.03 1.12-1.32 mmol/l Influenza Type A Antigen Neg for Influ A NEG Influenza Type B Antigen Neg for Influ B NEG Test 10/02/16 00:36 10/02/16 00:59 Range/Units Bedside Glucose 122 70-90 mg/dl Creatine Kinase MB Ratio 0-3.0 Microbiology Results 10/01/16 Blood Culture, Received Pending 10/01/16 Blood Culture, Received Pending EKG EKG shows normal sinus rhythm at 90 bpm, right bundle branch block, no acute ST- T changes, no change from 06/07/2016. Impression Assessment and Plan Hypoxia/upper respiratory infection--patient will be placed on vancomycin IV, Zosyn IV and levofloxacin IV per renal dosing. Xopenex with Atrovent nebulizer every 6 hours while awake and every 2 hours when necessary, guaifenesin extended release 600 mg by mouth twice a day, and Pulmicort respules 0.5 mg inhaled twice a day. Paroxysmal supraventricular tachycardia/hypertension/CHF--continue amiodarone 200 mg by mouth twice a day, amlodipine 5 mg by mouth every morning, clopidogrel 75 mg by mouth every morning, Aranesp 60 g every week, furosemide 20 mg by mouth twice a day, Imdur extended release 60 mg by mouth every morning and metoprolol tartrate 100 mg by mouth twice a day. Diabetes mellitus--continue Lantus insulin 36 units subcutaneous every morning and 70 units subcutaneous every afternoon, place on Accu-Cheks before meals and at bedtime with NovoLog coverage scale. 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 Jordan. Her usual dialysis days are Wednesday, and Wednesday. Continue vitamin B complex every morning, calcium acetate 667 mg by mouth 3 times a day with meals, and in the outpatient setting vitamin D 50,000 and Nexium is weekly and paricalcitol 1.5 ML's injected 3 times per week. Hypercholesterolemia--continue atorvastatin 40 mg by mouth every morning and gemfibrozil 600 mg by mouth twice a day. Peripheral neuropathy--continue gabapentin 300 mg by mouth twice a day and Lyrica 25 mg by mouth twice a day. Status post right BKA/[facility] rehabilitation--she was due to be discharged from rehabilitation in 3 days and then continue outpatient rehabilitation 2 times per week. We'll need to see if she is finished with inpatient [facility] and just can start outpatient rehabilitation next week after discharge. Level of Care Telemetry Advanced Directives Existing Advance Directive: No Existing Living Will: No Existing Power of Ad Setter: Yes Resuscitation Status FULL RESUSCITATION VTE Prophylaxis VTE Risk Assessment Done? Y/N: Yes Risk Level: High
[2016-10-02] MEDS ORDERED: PIPERACILL/TAZOBAC IV 3.375 GM in DEXTROSE 5% 100ML 100 ML IV SCH (06:00)
--- NOTE | 2016-10-02 06:36 | DIAGNOSTIC IMAGING REPORT ---
CHEST ONE VIEW PORTABLE CLINICAL HISTORY: fever dyspnea COMPARISON STUDY: 06/07/2016 FINDINGS: Persistent findings of mild congestive failure. Bony vasculature is prominent. Heart is moderately enlarged. Chronic elevation right hemidiaphragm. Possible superimposed infiltrate medial right base IMPRESSION: Findings of congestive failure, possibly with a superimposed medial right base infiltrative process. Electronically signed by: Cornell Malhotra M.D. 10/02/2016 6:34 AM Dictated Date/Time: 10/02/2016 6:32 AM
[2016-10-02] MEDS: BUDESONIDE 0.5 MG/2 ML VIAL (PULMICORT) INH SCH ×2 (07:12→19:46)
[2016-10-02] MEDS: CLOPIDOGREL BISULFATE 75 MG TAB PO SCH (08:07)
[2016-10-02] MEDS: AMIODARONE 200 MG TAB PO SCH ×2 (08:07→21:37)
[2016-10-02] MEDS: CALCIUM ACETATE 667MG GELCAP PO SCH ×3 (08:07→17:00)
[2016-10-02] MEDS: ATORVASTATIN 40 MG TAB PO SCH (08:07)
[2016-10-02] MEDS: AMLODIPINE BESYLATE 5 MG TAB PO SCH (08:08)
[2016-10-02] MEDS: GEMFIBROZIL 600 MG TAB PO SCH ×2 (08:08→21:37)
[2016-10-02] MEDS: DOCUSATE SODIUM 100 MG CAP PO SCH ×2 (08:09→21:36)
[2016-10-02] MEDS: ISOSORBIDE MONONITRATE 60 MG TABCR PO SCH (08:09)
[2016-10-02] MEDS: VITAMIN B COMPLEX TAB PO SCH (08:09)
[2016-10-02] MEDS: GUAIFENESIN 200 MG TAB PO SCH ×2 (08:09→21:38)
[2016-10-02] MEDS: GABAPENTIN 300 MG CAP PO SCH ×2 (08:10→21:36)
[2016-10-02] MEDS: METOPROLOL TARTRATE 100 MG TAB PO SCH ×2 (08:10→21:40)
[2016-10-02] MEDS: INSULIN ASPART 100 UNITS/ML 3 ML PEN SC SCH ×4 (08:19→21:42)
[2016-10-02] MEDS ORDERED: NURSING VERBAL MED ORDER ONE ×3 (09:00→23:00)
[2016-10-02] MEDS ORDERED: FUROSEMIDE 20 MG TAB PO SCH (09:00)
[2016-10-02] MEDS ORDERED: FUROSEMIDE 40 MG/4 ML VIAL ONE ×2 (09:01→09:43)
[2016-10-02] MEDS: PREGABALIN 25MG CAP PO SCH ×2 (09:12→21:36)
[2016-10-02 09:55] LABS: CKMB/CK RATIO 1.4 (0-3.0)
[2016-10-02] MEDS: PIPERACILL/TAZOBAC IV 4.5 GM in DEXTROSE 5% 100ML IV SCH ×2 (10:13→21:47)
[2016-10-02 11:35] LABS: BASO % 0.2 %; BASO ABS # 0.01 K/uL (0-0.2); COMPLETE YES; EOS % 0.6 %; HEMATOCRIT 27.5 % (37-47); IG% 0.3 %; LYMPH ABS # 0.33 K/uL (1.2-3.4); MEAN CELL VOLUME 93.2 fL (80-100); MEAN CORPUSCULAR HEMOGLOBIN 31.5 pg (25-34); MEAN CORPUSCULAR HGB CONC 33.8 g/dl (32-36); MEAN PLATELET VOLUME 9.3 fL (7.4-10.4); MONO % 5.7 %; NEUT % 88.2 %; PLATELET COUNT 130 K/uL (130-400); RED BLOOD COUNT 2.95 M/uL (4.2-5.4); WHITE BLOOD COUNT 6.65 K/uL (4.8-10.8)
[2016-10-02 11:51] LABS: INR 1.3 (0.9-1.1); PARTIAL THROMBOPLASTIN RATIO 1.2; PROTHROMBIN TIME (PATIENT) 13.5 SECONDS (9.0-12.0)
--- NOTE | 2016-10-02 12:46 | Pharmacy Progress Note ---
Pharmacy Antibiotic Consult Date of Service: Oct 02, 2016. Pharmacy Dosing Scope Pharmacy is consulted to initiate Vancomycin, Zosyn and Levaquin IV dosing therapy, order appropriate labs and adjust drug dose/frequency. Subjective The patient is a 66 year old female admitted on Oct 02, 2016 at 00:57 with upper respiratory infection (noted as SIRS) Patient was receiving her routine HD session and complained of feeling sick and the session was actually cut short. She was eventually transferred here from [facility] and started on broad spectrum antibiotics by Dr. Ren for upper respiratory infection (noted as SIRS) but surely would be considered HCAP. Objective Height (Feet): 5 Height (Inches): 5.00 Weight (Kilograms): 107.200 Lab Results (24hrs): Laboratory Tests Test 10/01/16 23:33 10/02/16 11:16 BUN/Creatinine Ratio 5.9 Blood Urea Nitrogen 25 mg/dl Creatinine 4.20 mg/dl White Blood Count 6.41 K/uL 6.65 K/uL Red Blood Count 3.19 M/uL 2.95 M/uL Hemoglobin 10.3 g/dL 9.3 g/dL Hematocrit 29.8 % 27.5 % Mean Corpuscular Volume 93.4 fL 93.2 fL Mean Corpuscular Hemoglobin 32.3 pg 31.5 pg Mean Corpuscular Hemoglobin Concent 34.6 g/dl 33.8 g/dl Platelet Count 158 K/uL 130 K/uL Mean Platelet Volume 9.3 fL 9.3 fL Neutrophils (%) (Auto) 77.5 % 88.2 % Lymphocytes (%) (Auto) 14.5 % 5.0 % Monocytes (%) (Auto) 6.6 % 5.7 % Eosinophils (%) (Auto) 0.6 % 0.6 % Basophils (%) (Auto) 0.5 % 0.2 % Neutrophils # (Auto) 4.97 K/uL 5.87 K/uL Lymphocytes # (Auto) 0.93 K/uL 0.33 K/uL Monocytes # (Auto) 0.42 K/uL 0.38 K/uL Eosinophils # (Auto) 0.04 K/uL 0.04 K/uL Basophils # (Auto) 0.03 K/uL 0.01 K/uL Micro Results: Item Value Date Time MRSA DNA Surveillance Screen Brett Batch 10/02/16 1236 Nasal Pending Blood Culture Received 4/6/17 2333 Blood Pending Blood Culture Received 10/01/16 2330 Blood Pending Recent Pertinent Medications Item Value Date Time Levofloxacin 250 50 ml @ 50 mls/hr 10/04/16 0400 mg/Prmx Q48H/IV Piperacillin Sod/ 120 ml @ 30 mls/hr 10/02/16 1000 Tazobactam Sod Q12H/IV 10/02/16 1013 4.5 gm/Dextrose Assessment & Plan Loading dose: Vancomycin 2000mg (~19mg/kg) IV X 1 dose then will check random level with AM labs tomorrow in this Hemodialysis patient. We will dose empirically based on each level and scheduled HD sessions which are normally on Wed, and Wednesday. Pharmacy will continue to follow and will adjust dose/frequency as necessary. Thank you
[2016-10-02 12:53] LABS: ALB/GLOB RATIO 0.7 (0.9-2); CALCIUM 8.6 mg/dl (8.5-10.1); CREATININE 5.2 mg/dl (0.60-1.20); MAGNESIUM 2.1 mg/dl (1.8-2.4); PHOSPHORUS 5.3 mg/dl (2.5-4.9); POTASSIUM 4.4 mmol/L (3.5-5.1)
[2016-10-02] MEDS ORDERED: HydrALAZINE HCL 20 MG/ML VIAL IV. PRN (13:15)
--- NOTE | 2016-10-02 14:20 | Nephrology Consultation ---
Nephrology Consultation Date & Providers Date of Consultation: Oct 02, 2016. [facility] [place] Referring Provider: Reason for Consultation Management of end-stage renal disease and hemodialysis while admitted to the hospital. History of Present Illness Umu is a 66-year-old female with past medical history significant for end- stage renal disease on hemodialysis secondary to hypertensive nephropathy, diabetes, recent right below-knee amputation, admitted to the hospital with respiratory failure and pneumonia. Nephrologic consult was requested for management of ESRD and dialysis. Electronic medical records including labs and imaging were reviewed in detail during patient's visit. Patient was seen with her at bedside and discussed management in detail with her . Umu has end-stage renal disease secondary to hypertension nephropathy currently on hemodialysis Wednesday, , Wednesday. Umu recently had right below-knee amputation and had been in [facility] rehab. Yesterday while she was on dialysis at [facility] she started having low-grade fever, chills and shaking and could not continue dialysis for long. She had 2 hours of dialysis and then she was sent to [facility] Emergency room for further evaluation. In the ED she was found to be hypoxic in room air with her oxygen saturation 79%, had chest x-ray which was concerning for mild pulmonary congestion and possible evolving right lower lobe pulmonary infiltrate. She was admitted with the diagnosis of pneumonia and started on empiric antibiotic therapy. This morning her oxygen saturation dropped again and she was on 6 liter nasal cannula but oxygen saturation was at around 80s and had to be put on non- rebreather. Denied chest pain. BP was stable. She received 80 of Lasix IV as she still makes some urine, she voided twice and currently her oxygen saturation improved on 2 liters nasal cannula. blood pressure seems to be stable. Electrolyte acceptable. Allergies Coded Allergies: No Known Allergies (Verified , 07/08/16) Inpatient Medications Current Inpatient Medications Medications (Trade) Dose Ordered Sig/Sheela Route Start Time Stop Time Status Last Admin Dose Admin Acetaminophen (Tylenol Tab) 1,000 mg Q8 PRN PO 10/02/16 01:00 11/01/16 00:59 Amiodarone HCl (Cordarone Tab) 200 mg BID PO 10/02/16 09:00 11/01/16 08:59 10/02/16 08:07 200 MG Amlodipine Besylate (Norvasc Tab) 5 mg QAM PO 10/02/16 09:00 11/01/16 08:59 10/02/16 08:08 5 MG Atorvastatin Calcium (Lipitor Tab) 40 mg QAM PO 10/02/16 09:00 11/01/16 08:59 10/02/16 08:07 40 MG Calcium Acetate (Phoslo Cap) 667 mg TIDM PO 10/02/16 08:00 11/01/16 07:59 10/02/16 13:02 667 MG Clopidogrel Bisulfate (plAVix TAB) 75 mg QAM PO 10/02/16 09:00 11/01/16 08:59 10/02/16 08:07 75 MG Docusate Sodium (coLACE CAP) 100 mg BID PO 10/02/16 09:00 11/01/16 08:59 10/02/16 08:09 100 MG Furosemide (Lasix Tab) 20 mg BID17 PO 10/02/16 09:00 11/01/16 08:59 10/02/16 08:08 20 MG Gabapentin (Neurontin Cap) 300 mg BID PO 10/02/16 09:00 11/01/16 08:59 10/02/16 08:10 300 MG Gemfibrozil (Lopid Tab) 600 mg BID PO 10/02/16 09:00 11/01/16 08:59 10/02/16 08:08 600 MG Insulin Glargine (Lantus Solostar Pen) 70 unit QPM SQ 10/02/16 21:00 11/01/16 20:59 Isosorbide Mononitrate (Imdur Ext Rel Tab) 60 mg QAM PO 10/02/16 09:00 11/01/16 08:59 10/02/16 08:09 60 MG Metoprolol Tartrate (Lopressor Tab) 100 mg BID PO 10/02/16 09:00 11/01/16 08:59 10/02/16 08:10 100 MG Pregabalin (Lyrica Cap) 25 mg BID PO 10/02/16 09:00 11/01/16 08:59 10/02/16 09:12 25 MG Tramadol HCl (Ultram Tab) 50 mg Q4H PRN PO 10/02/16 01:00 11/01/16 00:59 Zolpidem Tartrate (Ambien Tab) 5 mg HS PRN PO 10/02/16 01:00 11/01/16 00:59 Vitamin B Complex (Vitamin B Complex) 1 tab QAM PO 10/02/16 09:00 11/01/16 08:59 10/02/16 08:09 1 TAB Ondansetron HCl (Zofran Inj) 4 mg Q6H PRN IV 10/02/16 01:00 11/01/16 00:59 Insulin Aspart (novoLOG ASPART) SLIDING SCALE If C... ACHS SC 10/02/16 06:30 11/01/16 06:59 10/02/16 13:04 2 UNITS Glucose (Glucose 40% Gel) UD PRN PO 10/02/16 01:00 11/01/16 00:59 Glucose (Glucose Chew Tab) 1 tabs UD PRN PO 10/02/16 01:00 11/01/16 00:59 Dextrose (Dextrose 50% 50ML Syringe) 50 ml UD PRN IV 10/02/16 01:00 11/01/16 00:59 Glucagon (Glucagon Inj) 1 mg UD PRN SQ 10/02/16 01:00 11/01/16 00:59 Guaifenesin (Organidin Nr Tab) 600 mg BID PO 10/02/16 09:00 11/01/16 08:59 10/02/16 08:09 600 MG Budesonide (Pulmicort Respules 0.5MG/ 2ML Neb Soln) 0.5 mg BIDR INH 10/02/16 08:00 11/01/16 07:59 10/02/16 07:12 0.5 MG Ipratropium [place] (Atrovent 0.02% 0.5MG/2.5ML Neb) 0.5 mg Q6R INH 10/02/16 03:00 11/01/16 02:59 10/02/16 07:12 0.5 MG Levalbuterol (Xopenex 1.25MG/ 0.5ML Neb) 1.25 mg Q6R INH 10/02/16 03:00 11/01/16 02:59 10/02/16 07:12 1.25 MG Ipratropium [place] (Atrovent 0.02% 0.5MG/2.5ML Neb) 0.5 mg Q2H PRN INH 10/02/16 01:45 11/01/16 01:44 Levalbuterol 1.25 mg 1.25 mg Q2H PRN INH 10/02/16 01:45 11/01/16 01:44 Piperacillin Sod/ Tazobactam Sod/ Dextrose (Zosyn Iv/D5 100ml) 120 ml @ 30 mls/hr Q12H IV 10/02/16 10:00 10/09/16 09:59 10/02/16 10:13 30 MLS/HR Piperacillin Sod/ Tazobactam Sod (Consult) 1 ea UD PRN N/A 10/02/16 02:30 11/01/16 02:29 Vancomycin HCl (Consult) 1 ea UD PRN N/A 10/02/16 02:30 11/01/16 02:29 Levofloxacin 1 ea 1 ea UD PRN N/A 10/02/16 02:30 11/01/16 02:29 Levofloxacin/Prmx (Levaquin / D5W/ Premixed D5W) 50 ml @ 50 mls/hr Q48H IV 10/04/16 04:00 10/11/16 03:59 Hydralazine HCl (HydrALAZINE INJ) 10 mg Q4H PRN IV. 10/02/16 13:15 11/01/16 13:14 UNV Family History FHx: musculoskeletal disease Social History Smoking Status: Never Smoker Smokeless Tobacco Use: No Alcohol Use: none Drug Use: none Marital Status: Housing Status: lives with family Occupation: retired Review of Systems A complete review of systems was performed. Pertinent positives are noted above. All other systems are negative. Physical Exam Date Time Temp Pulse Resp B/P Pulse Ox O2 Delivery O2 Flow Rate FiO2 10/02/16 11:34 37.1 97 16 181/71 97 Room Air 10/02/16 08:08 36.6 60 20 105/64 100 10/02/16 08:00 Room Air 10/02/16 07:14 62 16 96 Nasal Cannula 2.0 10/02/16 04:16 36.9 64 16 119/66 95 10/02/16 04:00 Nasal Cannula 4.0 10/02/16 01:55 73 18 93 Nasal Cannula 2.0 10/02/16 01:20 37.1 74 18 145/65 92 Nasal Cannula 4.0 10/02/16 01:09 37.8 93 19 142/56 Nasal Cannula 4.0 10/02/16 00:00 99 20 139/63 92 Nasal Cannula 4.0 10/01/16 23:30 88 10/01/16 23:17 91 Non-Rebreather 15.0 10/01/16 23:11 38.1 81 22 175/75 79 Room Air GENERAL: middle aged female, AAA x 3, pleasant, ill-appearing, in mild respiratory distress. HEENT: Atraumatic, normocephalic. NECK: Supple, no JVD, no carotid bruit appreciated. ENT: No sinus tenderness MOUTH and THROAT: Moist oral mucosa, no oral ulcer or pharyngeal erythema RESPIRATORY: overall decreased BS. CARDIOVASCULAR: S1, S2 normal, rate rhythm regular. ABDOMEN: Soft, nontender, positive bowel sound. MUSCULOSKELETAL: No joint swelling, erythema or tenderness. Normal range of motion. SKIN: No skin rash EXTREMITY: trace left lower extremity edema, rt LE BKA NEURO: No gross focal neurological deficit, speech fluent. PSYCHIATRY: Normal mood and judgment Laboratory Results Last 24 Hours Test 10/01/16 23:28 10/01/16 23:33 10/01/16 23:34 10/02/16 00:00 Bedside Lactic Acid Venous 2.17 mmol/L White Blood Count 6.41 K/uL Red Blood Count 3.19 M/uL Hemoglobin 10.3 g/dL Hematocrit 29.8 % Mean Corpuscular Volume 93.4 fL Mean Corpuscular Hemoglobin 32.3 pg Mean Corpuscular Hemoglobin Concent 34.6 g/dl Platelet Count 158 K/uL Mean Platelet Volume 9.3 fL Neutrophils (%) (Auto) 77.5 % Lymphocytes (%) (Auto) 14.5 % Monocytes (%) (Auto) 6.6 % Eosinophils (%) (Auto) 0.6 % Basophils (%) (Auto) 0.5 % Neutrophils # (Auto) 4.97 K/uL Lymphocytes # (Auto) 0.93 K/uL Monocytes # (Auto) 0.42 K/uL Eosinophils # (Auto) 0.04 K/uL Basophils # (Auto) 0.03 K/uL RDW Standard Deviation 53.5 fL RDW Coefficient of Variation 15.7 % Immature Granulocyte % (Auto) 0.3 % Immature Granulocyte # (Auto) 0.02 K/uL Prothrombin Time 12.4 SECONDS Prothromb Time International Ratio 1.2 Venous Blood pH 7.49 Venous Blood Partial Pressure CO2 40 mmHg Venous Blood Partial Pressure O2 39 mmHg Venous Blood HCO3 30 mmol/L Venous Blood Oxygen Saturation 74.8 % Venous Blood Base Excess 5.8 mmol/L Sodium Level 136 mmol/L Potassium Level 4.1 mmol/L Chloride Level 95 mmol/L Carbon Dioxide Level 29 mmol/L Anion Gap 12.0 mmol/L 17.0 mmol/L Blood Urea Nitrogen 25 mg/dl Creatinine 4.20 mg/dl Est Creatinine Clear Calc Drug Dose 15.8 ml/min Estimated GFR () 11.9 Estimated GFR (Non- 10.3 BUN/Creatinine Ratio 5.9 Random Glucose 118 mg/dl Calcium Level 8.7 mg/dl Magnesium Level 1.9 mg/dl Total Bilirubin 0.4 mg/dl Direct Bilirubin 0.1 mg/dl Aspartate Amino Transf (AST/SGOT) 20 U/L Alanine Aminotransferase (ALT/SGPT) 21 U/L Alkaline Phosphatase 90 U/L Total Creatine Kinase 181 U/L Creatine Kinase MB 1.4 ng/ml Creatine Kinase MB Ratio 0.8 Troponin I 0.026 ng/ml Total Protein 7.7 gm/dl Albumin 3.1 gm/dl Chemistry Specimen Hemolysis Bedside Hemoglobin 9.9 g/dl Bedside Hematocrit 29 % Bedside Sodium 135 mEq/L Bedside Potassium 4.3 mEq/L Bedside Chloride 96 mEq/L Bedside Total CO2 28 mEq/l Bedside Blood Urea Nitrogen 26 mg/dl Bedside Creatinine 4.1 mg/dl Bedside Glucose (other) 119 mg/dl Bedside Ionized Calcium (Gabriella) 1.03 mmol/l Influenza Type A Antigen Neg for Influ A Influenza Type B Antigen Neg for Influ B Test 10/02/16 00:36 10/02/16 00:59 10/02/16 08:13 10/02/16 09:08 Bedside Glucose 122 mg/dl 87 mg/dl Creatine Kinase MB Ratio 1.4 Total Creatine Kinase 205 U/L Creatine Kinase MB 2.8 ng/ml Troponin I 0.794 ng/ml Test 10/02/16 11:16 White Blood Count 6.65 K/uL Red Blood Count 2.95 M/uL Hemoglobin 9.3 g/dL Hematocrit 27.5 % Mean Corpuscular Volume 93.2 fL Mean Corpuscular Hemoglobin 31.5 pg Mean Corpuscular Hemoglobin Concent 33.8 g/dl Platelet Count 130 K/uL Mean Platelet Volume 9.3 fL Neutrophils (%) (Auto) 88.2 % Lymphocytes (%) (Auto) 5.0 % Monocytes (%) (Auto) 5.7 % Eosinophils (%) (Auto) 0.6 % Basophils (%) (Auto) 0.2 % Neutrophils # (Auto) 5.87 K/uL Lymphocytes # (Auto) 0.33 K/uL Monocytes # (Auto) 0.38 K/uL Eosinophils # (Auto) 0.04 K/uL Basophils # (Auto) 0.01 K/uL RDW Standard Deviation 54.5 fL RDW Coefficient of Variation 15.9 % Immature Granulocyte % (Auto) 0.3 % Immature Granulocyte # (Auto) 0.02 K/uL Prothrombin Time 13.5 SECONDS Prothromb Time International Ratio 1.3 Activated Partial Thromboplast Time 30.8 SECONDS Partial Thromboplastin Ratio 1.2 Sodium Level 136 mmol/L Potassium Level 4.4 mmol/L Chloride Level 97 mmol/L Carbon Dioxide Level 29 mmol/L Anion Gap 10.0 mmol/L Blood Urea Nitrogen 31 mg/dl Creatinine 5.20 mg/dl Est Creatinine Clear Calc Drug Dose 12.8 ml/min Estimated GFR () 9.2 Estimated GFR (Non- 7.9 BUN/Creatinine Ratio 6.0 Bedside Glucose 109 mg/dl Random Glucose 110 mg/dl Calcium Level 8.6 mg/dl Phosphorus Level 5.3 mg/dl Magnesium Level 2.1 mg/dl Total Bilirubin 0.5 mg/dl Aspartate Amino Transf (AST/SGOT) 20 U/L Alanine Aminotransferase (ALT/SGPT) 15 U/L Alkaline Phosphatase 65 U/L Total Protein 6.9 gm/dl Albumin 2.8 gm/dl Globulin 4.1 gm/dl Albumin/Globulin Ratio 0.7 Impression (1) ESRD on dialysis (2) Hypoxia (3) Anemia (4) Hx of right BKA (5) Hypertension (6) Diabetes mellitus (7) Pneumonia Umu is a 66-year-old female with 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 She had short dialysis treatment yesterday as seen during dialysis she became febrile, had chills and was shaking. No leukocytosis or cough. She was brought to the ED and was found to be hypoxic in room air, chest x-ray suggestive of pulmonary congestion and right lower lobe infiltrate and admitted with pneumonia and started on empiric antibiotic therapy. This morning she had another episode of hypoxia when her oxygen saturation dropped to 80s and required non-rebreather musk.. She received 80 of IV Lasix and has voided twice. Her oxygen saturation improved. Troponin was mildly elevated today. Currently her blood pressure, electrolyte acceptable. She continues to have occasional chills and shaking. Blood culture pending. Recently had right BKA, [facility] PMH also significant for HTN, DM and chronic diabetic ulcer, osteomyelitis and BKA. Recommendations --we will schedule for 3 h dialysis today and will keep on schedule for dialysis tomorrow --continue on lasix, increase the dose to 40 milligram twice a day --pt has high risk for coronary event and PE with h/o DM, HTN ESRD and recent BKA, suggest serial troponin and low threshold for evaluation for PE if continues to be hypoxic --Agreed that continuing on current dose of Zosyn -- avoid IV fluid and continue on renal diet -- continue on Nephrocaps, phosphate binder and Epogen with dialysis Thank you for allowing me to participate in your patient's care. It was a pleasure to see Umu This chart was completed utilizing [employer] Speech and voice recognition software. Grammatical errors, random word insertions, pronoun errors and incomplete sentences are occasional consequences of this system. Any questions or concerns about the content, text or information contained within the body of this dictation should be addressed directly to the physician for clarification.
[2016-10-02] MEDS: FUROSEMIDE 40 MG TAB PO SCH ×2 (17:00→21:40)
--- NOTE | 2016-10-02 17:36 | Family Medicine Progress Note ---
Progress Note Date of Service Oct 02, 2016. Subjective Pt evaluation today including: conversation w/ patient, physical exam, chart review, lab review Pain: none Voiding: no voiding problems Briefly reviewed history with the patient. Patient rises from [facility] where she was having rehabilitation for prosthetic training after recently having had right-sided [id number] amputation. Patient notes that 2 days ago, while having prosthetic training she felt chills , sweats and generally unwell. Denies chest pain, shortness of breath, coughing , wheezing. Did not report symptoms to anyone at that time and continued with her usual rehab routine. Yesterday she was at dialysis, and [facility] through dialysis was noted to have fevers chills, and shortness of breath and subsequent sent to the emergency department for further evaluation. She does have end-stage renal disease, and is on dialysis. However she does continue to produce urine. She does not have any dysuria and she does not complain of any urinary frequency. She does currently state that she feels short of breath. She does not have any coughing or wheezing. She denies diarrhea, or constipation. She's not had any nausea or vomiting. She denies any photophobia, neck stiffness, confusion, or mental fogginess. Her right amputation site, has been doing well. She denies any pain, redness, discharge. All Other Systems: Reviewed and Negative Medications Current Inpatient Medications Medications (Trade) Dose Ordered Sig/Sheela Route Start Time Stop Time Status Last Admin Dose Admin Acetaminophen (Tylenol Tab) 1,000 mg Q8 PRN PO 10/02/16 01:00 11/01/16 00:59 Amiodarone HCl (Cordarone Tab) 200 mg BID PO 10/02/16 09:00 11/01/16 08:59 10/02/16 08:07 200 MG Amlodipine Besylate (Norvasc Tab) 5 mg QAM PO 10/02/16 09:00 11/01/16 08:59 10/02/16 08:08 5 MG Atorvastatin Calcium (Lipitor Tab) 40 mg QAM PO 10/02/16 09:00 11/01/16 08:59 10/02/16 08:07 40 MG Calcium Acetate (Phoslo Cap) 667 mg TIDM PO 10/02/16 08:00 11/01/16 07:59 10/02/16 13:02 667 MG Clopidogrel Bisulfate (plAVix TAB) 75 mg QAM PO 10/02/16 09:00 11/01/16 08:59 10/02/16 08:07 75 MG Docusate Sodium (coLACE CAP) 100 mg BID PO 10/02/16 09:00 11/01/16 08:59 10/02/16 08:09 100 MG Gabapentin (Neurontin Cap) 300 mg BID PO 10/02/16 09:00 11/01/16 08:59 10/02/16 08:10 300 MG Gemfibrozil (Lopid Tab) 600 mg BID PO 10/02/16 09:00 11/01/16 08:59 10/02/16 08:08 600 MG Insulin Glargine (Lantus Solostar Pen) 70 unit QPM SQ 10/02/16 21:00 11/01/16 20:59 Isosorbide Mononitrate (Imdur Ext Rel Tab) 60 mg QAM PO 10/02/16 09:00 11/01/16 08:59 10/02/16 08:09 60 MG Metoprolol Tartrate (Lopressor Tab) 100 mg BID PO 10/02/16 09:00 11/01/16 08:59 10/02/16 08:10 100 MG Pregabalin (Lyrica Cap) 25 mg BID PO 10/02/16 09:00 11/01/16 08:59 10/02/16 09:12 25 MG Tramadol HCl (Ultram Tab) 50 mg Q4H PRN PO 10/02/16 01:00 11/01/16 00:59 Zolpidem Tartrate (Ambien Tab) 5 mg HS PRN PO 10/02/16 01:00 11/01/16 00:59 Vitamin B Complex (Vitamin B Complex) 1 tab QAM PO 10/02/16 09:00 11/01/16 08:59 10/02/16 08:09 1 TAB Ondansetron HCl (Zofran Inj) 4 mg Q6H PRN IV 10/02/16 01:00 11/01/16 00:59 Insulin Aspart (novoLOG ASPART) SLIDING SCALE If C... ACHS SC 10/02/16 06:30 11/01/16 06:59 10/02/16 13:04 2 UNITS Glucose (Glucose 40% Gel) UD PRN PO 10/02/16 01:00 11/01/16 00:59 Glucose (Glucose Chew Tab) 1 tabs UD PRN PO 10/02/16 01:00 11/01/16 00:59 Dextrose (Dextrose 50% 50ML Syringe) 50 ml UD PRN IV 10/02/16 01:00 11/01/16 00:59 Glucagon (Glucagon Inj) 1 mg UD PRN SQ 10/02/16 01:00 11/01/16 00:59 Guaifenesin (Organidin Nr Tab) 600 mg BID PO 10/02/16 09:00 11/01/16 08:59 10/02/16 08:09 600 MG Budesonide (Pulmicort Respules 0.5MG/ 2ML Neb Soln) 0.5 mg BIDR INH 10/02/16 08:00 11/01/16 07:59 10/02/16 07:12 0.5 MG Ipratropium [place] (Atrovent 0.02% 0.5MG/2.5ML Neb) 0.5 mg Q6R INH 10/02/16 03:00 11/01/16 02:59 10/02/16 14:05 0.5 MG Levalbuterol (Xopenex 1.25MG/ 0.5ML Neb) 1.25 mg Q6R INH 10/02/16 03:00 11/01/16 02:59 10/02/16 14:05 1.25 MG Ipratropium [place] (Atrovent 0.02% 0.5MG/2.5ML Neb) 0.5 mg Q2H PRN INH 10/02/16 01:45 11/01/16 01:44 Levalbuterol 1.25 mg 1.25 mg Q2H PRN INH 10/02/16 01:45 11/01/16 01:44 Piperacillin Sod/ Tazobactam Sod/ Dextrose (Zosyn Iv/D5 100ml) 120 ml @ 30 mls/hr Q12H IV 10/02/16 10:00 10/09/16 09:59 10/02/16 10:13 30 MLS/HR Piperacillin Sod/ Tazobactam Sod (Consult) 1 ea UD PRN N/A 10/02/16 02:30 11/01/16 02:29 Vancomycin HCl (Consult) 1 ea UD PRN N/A 10/02/16 02:30 11/01/16 02:29 Levofloxacin 1 ea 1 ea UD PRN N/A 10/02/16 02:30 11/01/16 02:29 Levofloxacin/Prmx (Levaquin / D5W/ Premixed D5W) 50 ml @ 50 mls/hr Q48H IV 10/04/16 04:00 10/11/16 03:59 Hydralazine HCl (HydrALAZINE INJ) 10 mg Q4H PRN IV. 10/02/16 13:15 11/01/16 13:14 10/02/16 14:34 10 MG Furosemide (Lasix Tab) 40 mg BID17 PO 10/02/16 17:00 11/01/16 16:59 Epoetin Jan (Procrit Inj) 4,000 units Sa@1200 IV 10/03/16 12:00 10/03/16 23:59 Objective Vital Signs Date Time Temp Pulse Resp B/P Pulse Ox O2 Delivery O2 Flow Rate FiO2 10/02/16 15:19 37.7 87 22 122/65 93 5.0 10/02/16 14:06 72 16 90 Nasal Cannula 5.0 10/02/16 11:34 37.1 97 16 181/71 97 Room Air 10/02/16 08:08 36.6 60 20 105/64 100 10/02/16 08:00 Room Air 10/02/16 07:14 62 16 96 Nasal Cannula 2.0 10/02/16 04:16 36.9 64 16 119/66 95 10/02/16 04:00 Nasal Cannula 4.0 10/02/16 01:55 73 18 93 Nasal Cannula 2.0 10/02/16 01:20 37.1 74 18 145/65 92 Nasal Cannula 4.0 10/02/16 01:09 37.8 93 19 142/56 Nasal Cannula 4.0 10/02/16 00:00 99 20 139/63 92 Nasal Cannula 4.0 10/01/16 23:30 88 10/01/16 23:17 91 Non-Rebreather 15.0 10/01/16 23:11 38.1 81 22 175/75 79 Room Air Physical Exam General Appearance: WD/WN, no apparent distress, + obese Eyes: normal inspection, EOMI ENT: hearing grossly normal, pharynx normal, + pertinent finding (nasal cannulas) Neck: supple, no adenopathy, no JVD Respiratory/Chest: chest non-tender, no accessory muscle use, + pertinent finding (diminished breath sounds at the bases, with faint bilateral crackles, more prominent on the right) Cardiovascular: regular rate, rhythm, no gallop, no murmur Abdomen: normal bowel sounds, non tender, soft, + pertinent finding (abdominal hernia centrally) Extremities: + pertinent finding (right knee BKA, scar appears well-healed; no calf tenderness on the left) Neurologic/Psychiatric: alert, normal mood/affect, oriented x 3 Skin: normal color, warm/dry, no rash Lymphatic: no adenopathy Laboratory Results Last 24 Hours Test 10/01/16 23:28 10/01/16 23:33 10/01/16 23:34 10/02/16 00:00 Bedside Lactic Acid Venous 2.17 mmol/L White Blood Count 6.41 K/uL Red Blood Count 3.19 M/uL Hemoglobin 10.3 g/dL Hematocrit 29.8 % Mean Corpuscular Volume 93.4 fL Mean Corpuscular Hemoglobin 32.3 pg Mean Corpuscular Hemoglobin Concent 34.6 g/dl Platelet Count 158 K/uL Mean Platelet Volume 9.3 fL Neutrophils (%) (Auto) 77.5 % Lymphocytes (%) (Auto) 14.5 % Monocytes (%) (Auto) 6.6 % Eosinophils (%) (Auto) 0.6 % Basophils (%) (Auto) 0.5 % Neutrophils # (Auto) 4.97 K/uL Lymphocytes # (Auto) 0.93 K/uL Monocytes # (Auto) 0.42 K/uL Eosinophils # (Auto) 0.04 K/uL Basophils # (Auto) 0.03 K/uL RDW Standard Deviation 53.5 fL RDW Coefficient of Variation 15.7 % Immature Granulocyte % (Auto) 0.3 % Immature Granulocyte # (Auto) 0.02 K/uL Prothrombin Time 12.4 SECONDS Prothromb Time International Ratio 1.2 Venous Blood pH 7.49 Venous Blood Partial Pressure CO2 40 mmHg Venous Blood Partial Pressure O2 39 mmHg Venous Blood HCO3 30 mmol/L Venous Blood Oxygen Saturation 74.8 % Venous Blood Base Excess 5.8 mmol/L Sodium Level 136 mmol/L Potassium Level 4.1 mmol/L Chloride Level 95 mmol/L Carbon Dioxide Level 29 mmol/L Anion Gap 12.0 mmol/L 17.0 mmol/L Blood Urea Nitrogen 25 mg/dl Creatinine 4.20 mg/dl Est Creatinine Clear Calc Drug Dose 15.8 ml/min Estimated GFR () 11.9 Estimated GFR (Non- 10.3 BUN/Creatinine Ratio 5.9 Random Glucose 118 mg/dl Calcium Level 8.7 mg/dl Magnesium Level 1.9 mg/dl Total Bilirubin 0.4 mg/dl Direct Bilirubin 0.1 mg/dl Aspartate Amino Transf (AST/SGOT) 20 U/L Alanine Aminotransferase (ALT/SGPT) 21 U/L Alkaline Phosphatase 90 U/L Total Creatine Kinase 181 U/L Creatine Kinase MB 1.4 ng/ml Creatine Kinase MB Ratio 0.8 Troponin I 0.026 ng/ml Total Protein 7.7 gm/dl Albumin 3.1 gm/dl Chemistry Specimen Hemolysis Bedside Hemoglobin 9.9 g/dl Bedside Hematocrit 29 % Bedside Sodium 135 mEq/L Bedside Potassium 4.3 mEq/L Bedside Chloride 96 mEq/L Bedside Total CO2 28 mEq/l Bedside Blood Urea Nitrogen 26 mg/dl Bedside Creatinine 4.1 mg/dl Bedside Glucose (other) 119 mg/dl Bedside Ionized Calcium (Gabriella) 1.03 mmol/l Influenza Type A Antigen Neg for Influ A Influenza Type B Antigen Neg for Influ B Test 10/02/16 00:36 10/02/16 00:59 10/02/16 08:13 10/02/16 09:08 Bedside Glucose 122 mg/dl 87 mg/dl Creatine Kinase MB Ratio 1.4 Total Creatine Kinase 205 U/L Creatine Kinase MB 2.8 ng/ml Troponin I 0.794 ng/ml Test 10/02/16 11:16 10/02/16 15:59 White Blood Count 6.65 K/uL Red Blood Count 2.95 M/uL Hemoglobin 9.3 g/dL Hematocrit 27.5 % Mean Corpuscular Volume 93.2 fL Mean Corpuscular Hemoglobin 31.5 pg Mean Corpuscular Hemoglobin Concent 33.8 g/dl Platelet Count 130 K/uL Mean Platelet Volume 9.3 fL Neutrophils (%) (Auto) 88.2 % Lymphocytes (%) (Auto) 5.0 % Monocytes (%) (Auto) 5.7 % Eosinophils (%) (Auto) 0.6 % Basophils (%) (Auto) 0.2 % Neutrophils # (Auto) 5.87 K/uL Lymphocytes # (Auto) 0.33 K/uL Monocytes # (Auto) 0.38 K/uL Eosinophils # (Auto) 0.04 K/uL Basophils # (Auto) 0.01 K/uL RDW Standard Deviation 54.5 fL RDW Coefficient of Variation 15.9 % Immature Granulocyte % (Auto) 0.3 % Immature Granulocyte # (Auto) 0.02 K/uL Prothrombin Time 13.5 SECONDS Prothromb Time International Ratio 1.3 Activated Partial Thromboplast Time 30.8 SECONDS Partial Thromboplastin Ratio 1.2 Sodium Level 136 mmol/L Potassium Level 4.4 mmol/L Chloride Level 97 mmol/L Carbon Dioxide Level 29 mmol/L Anion Gap 10.0 mmol/L Blood Urea Nitrogen 31 mg/dl Creatinine 5.20 mg/dl Est Creatinine Clear Calc Drug Dose 12.8 ml/min Estimated GFR () 9.2 Estimated GFR (Non- 7.9 BUN/Creatinine Ratio 6.0 Bedside Glucose 109 mg/dl 100 mg/dl Random Glucose 110 mg/dl Calcium Level 8.6 mg/dl Phosphorus Level 5.3 mg/dl Magnesium Level 2.1 mg/dl Total Bilirubin 0.5 mg/dl Aspartate Amino Transf (AST/SGOT) 20 U/L Alanine Aminotransferase (ALT/SGPT) 15 U/L Alkaline Phosphatase 65 U/L Total Protein 6.9 gm/dl Albumin 2.8 gm/dl Globulin 4.1 gm/dl Albumin/Globulin Ratio 0.7 Assessment and Plan Pleasant 66-year-old who presents in respiratory distress. On arrival, she was febrile at 38.1. She is also noted to be hypoxic with an SPO2 of 79%. Respiratory rate was elevated at 22. Furthermore chest x-ray did reveal a nidus for infection, with what appears to be right-sided consolidation. Tachypnea, fever and evidence of pneumonia this patient as sepsis. [id number] lactate was mildly elevated at 2.17. There was no repeat lactate done within 6 hours. Certainly aggressive fluid rehydration at admission would be counterproductive given that chest x-ray also suggests that she may have fluid overload. Her problem list includes - Sepsis - R Lobar pneumonia - Acute CHF exacerbation - Paroxysmal SVT - Hypertension - Diabetes mellitus type 2 - End-stage CKD - Hypercholesterolemia - Peripheral neuropathy The plan for her is as follows Sepsis - Likely secondary to right-sided pneumonia - Patient is currently on broad-spectrum antibiotics including Levaquin, vancomycin and Piperacillin and tazobactam - No evidence of shock; patient isn't fluid overloaded state, therefore withheld IV fluid boluses - Blood cultures are pending - Clinic or lactate in the ED was 2.17; will repeat lactate and pro-calcitonin this evening and with morning labs - Repeat portable chest x-ray in the morning Acute CHF exacerbation - The patient has received 20 mg by mouth Lasix, per home dose - Patient also received 80 mg Lasix IV - Continue to monitor intake and output daily - Daily weights - AHA, low-sodium diet - Continue home dose of metoprolol - Continue home dose of Lasix - ROSSI inhibitor and ARB, are both contraindicated in light of end-stage renal disease History of SVT - Continue metoprolol History of coronary artery disease - Continue clopidogrel - Continue metoprolol - Continue indoor Hypertension - Continue amlodipine and metoprolol Paroxysmal supraventricular tachycardia/hypertension/CHF--continue amiodarone 200 mg by mouth twice a day, amlodipine 5 mg by mouth every morning, clopidogrel 75 mg by mouth every morning, Aranesp 60 g every week, furosemide 20 mg by mouth twice a day, Imdur extended release 60 mg by mouth every morning and metoprolol tartrate 100 mg by mouth twice a day. Insulin-dependent Diabetes mellitus - Continue home regimen of Lantus (36 units AM and 70 units / afternoon) - Aspart sliding scale End-stage renal disease - Patient follows with Dr. Jordan - Gets dialysis Wednesday and Wednesday; will consult nephrology for dialysis recommendations in inpatient setting - Creatinine on arrival 4.2; better than baseline of 5-6 - Continue I/Os and daily weights - Continue medications per nephrology recommendations Hypercholesterolemia - continue atorvastatin - Continue gemfibrozil Peripheral neuropathy - continue gabapentin - Continue Lyrica DVT prophylaxis - Heparin subcutaneous 3 times a day Code Status - Level I full code Disposition - Med/telemetry - PT OT have been consulted - The patient is arriving from [facility]. Per H&P, she only had 3 days left of therapy prior to anticipating discharge. Patient does not have her prosthesis at this time, but notes that her will bring prosthesis in. If possible continued prosthesis training should continue while in the inpatient setting if patient is able to participate. Reviewed: Pt Seen/Exam by Me History breathing slightly better today Constitutional: denies: fever Cardiovascular: denies chest pain General Appearance: mild distress Respiratory: other (coarse breath sounds) Cardiovascular: regular rate, rhythm Extremities: other (right BKA) Neurologic/Psychiatric: alert, oriented x 3 Skin Characteristics: warm/dry Assessment/Plan I have reviewed the medical record and performed a history and physical examination of this patient today. I have discussed the case with Dr Wiggins. The above note reflects my findings, conclusions, and recommendations.
--- NOTE | 2016-10-02 18:58 | Progress Note ---
Progress Note Date of Service Oct 02, 2016. (Kamari Wiggins MD) Progress Note Code status was not entered in the chart. I went up to speak with the patient to ask about code status but she was away at dialysis. Code Status by default was made LEVEL 1 FULL CODE Day team will need to clarify code status and make necessary changes. (Kamari Wiggins MD)
[2016-10-02 21:08] LABS: CKMB/CK RATIO 0.7 (0-3.0)
[2016-10-02] MEDS: INSULIN GLARGINE SOLOSTAR 100 UNITS/ML 3 ML PEN SQ SCH (21:42)
[2016-10-02] MEDS: HEPARIN SOD 5000 UNIT/0.5 ML CARP SQ SCH (21:43)
[2016-10-02] MEDS ORDERED: PANTOprazole SOD 40 MG TAB PO ONE (23:30)
[2016-10-03] VITALS (23 sets, daily range): BP systolic 90–157; BP diastolic 45–88; PULSE 57–82; TEMP 36.9–38.8; O2SAT 90–97
[2016-10-03 00:05] LABS: CKMB/CK RATIO 0.6 (0-3.0)
[2016-10-03] MEDS: IPRATROPIUM BROMIDE NEB SOLN 0.02% 2.5 ML VIAL INH SCH ×4 (01:29→19:17)
[2016-10-03] MEDS: LEVALBUTEROL 1.25MG/0.5ML NEB INH SCH ×4 (01:29→19:17)
[2016-10-03] MEDS: HEPARIN SOD 5000 UNIT/0.5 ML CARP SQ SCH ×3 (05:28→22:17)
[2016-10-03 06:04] LABS: BASO % 0.2 %; BASO ABS # 0.01 K/uL (0-0.2); EOS % 2.1 %; HEMATOCRIT 25.9 % (37-47); IG% 0.4 %; LYMPH % 14.4 %; LYMPH ABS # 0.76 K/uL (1.2-3.4); MEAN CELL VOLUME 93.8 fL (80-100); MEAN CORPUSCULAR HEMOGLOBIN 31.2 pg (25-34); MEAN CORPUSCULAR HGB CONC 33.2 g/dl (32-36); MEAN PLATELET VOLUME 9.1 fL (7.4-10.4); NEUT % 75.9 %; PLATELET COUNT 125 K/uL (130-400); RED BLOOD COUNT 2.76 M/uL (4.2-5.4); WHITE BLOOD COUNT 5.28 K/uL (4.8-10.8)
[2016-10-03 06:16] LABS: INR 1.3 (0.9-1.1); PARTIAL THROMBOPLASTIN RATIO 1.3
[2016-10-03 06:50] LABS: COMPLETE YES
[2016-10-03 07:21] LABS: BUN/CREATININE RATIO 5.2 (10-20); CALCIUM 8.6 mg/dl (8.5-10.1); CREATININE 4.6 mg/dl (0.60-1.20); MAGNESIUM 2.2 mg/dl (1.8-2.4); POTASSIUM 4.4 mmol/L (3.5-5.1)
[2016-10-03] MEDS: BUDESONIDE 0.5 MG/2 ML VIAL (PULMICORT) INH SCH ×2 (07:24→19:17)
--- NOTE | 2016-10-03 07:30 | DIAGNOSTIC IMAGING REPORT ---
CHEST ONE VIEW PORTABLE CLINICAL HISTORY: Congestive failure COMPARISON STUDY: 10/01/2016 FINDINGS: The heart remains enlarged. There is mild pulmonary vascular congestion. There is no focal pulmonary consolidation. Trace pleural effusions cannot be excluded.[ IMPRESSION: Cardiomegaly and mild pulmonary vascular congestion/fluid overload, minimally improved when compared the prior study. Electronically signed by: Justyn Wells M.D. 10/03/2016 7:28 AM Dictated Date/Time: 10/03/2016 7:26 AM
[2016-10-03] MEDS: DOCUSATE SODIUM 100 MG CAP PO SCH ×2 (08:02→21:00)
[2016-10-03] MEDS: AMIODARONE 200 MG TAB PO SCH ×2 (08:02→21:54)
[2016-10-03] MEDS: FUROSEMIDE 40 MG TAB PO SCH ×2 (08:02→17:36)
[2016-10-03] MEDS: ISOSORBIDE MONONITRATE 60 MG TABCR PO SCH (08:02)
[2016-10-03] MEDS: GEMFIBROZIL 600 MG TAB PO SCH ×2 (08:02→21:56)
[2016-10-03] MEDS: METOPROLOL TARTRATE 100 MG TAB PO SCH ×2 (08:02→22:00)
[2016-10-03] MEDS: CALCIUM ACETATE 667MG GELCAP PO SCH ×4 (08:02→17:00)
[2016-10-03] MEDS: ATORVASTATIN 40 MG TAB PO SCH (08:02)
[2016-10-03] MEDS: AMLODIPINE BESYLATE 5 MG TAB PO SCH (08:03)
[2016-10-03] MEDS: PANTOprazole SOD 40 MG TAB PO SCH (08:03)
[2016-10-03] MEDS: VITAMIN B COMPLEX TAB PO SCH (08:03)
[2016-10-03] MEDS: CLOPIDOGREL BISULFATE 75 MG TAB PO SCH (08:03)
[2016-10-03] MEDS: GABAPENTIN 300 MG CAP PO SCH ×2 (08:03→21:58)
[2016-10-03] MEDS: GUAIFENESIN 200 MG TAB PO SCH ×2 (08:03→21:59)
[2016-10-03] MEDS: INSULIN ASPART 100 UNITS/ML 3 ML PEN SC SCH ×4 (08:07→22:18)
[2016-10-03] MEDS: PREGABALIN 25MG CAP PO SCH ×2 (08:11→22:10)
[2016-10-03 08:24] LABS: CKMB/CK RATIO 0.6 (0-3.0)
[2016-10-03 09:28] LABS: HEPATITIS B AB POS
[2016-10-03] MEDS: PIPERACILL/TAZOBAC IV 4.5 GM in DEXTROSE 5% 100ML IV SCH ×2 (10:09→22:11)
--- NOTE | 2016-10-03 11:36 | Pharmacy Progress Note ---
Pharmacy Antibiotic Prog Note Date of Service Oct 03, 2016. Subjective The patient is currently receiving Vancomycin SINGLE DOSES once Vanco level falls between therapeutic goal of 15-20 for possible Septicemia. The patient is currently on day # 2 of Vancomycin IV therapy. Objective Height (Feet): 5 Height (Inches): 5.00 Weight (Kilograms): 102.200 Levels: Item Value Date Time Random Vancomycin Level 17.2 mcg/ml 10/03/16 0902 Lab Results (24hrs): Laboratory Tests Test 10/03/16 05:53 BUN/Creatinine Ratio 5.2 Blood Urea Nitrogen 24 mg/dl Creatinine 4.60 mg/dl White Blood Count 5.28 K/uL Red Blood Count 2.76 M/uL Hemoglobin 8.6 g/dL Hematocrit 25.9 % Mean Corpuscular Volume 93.8 fL Mean Corpuscular Hemoglobin 31.2 pg Mean Corpuscular Hemoglobin Concent 33.2 g/dl Platelet Count 125 K/uL Mean Platelet Volume 9.1 fL Neutrophils (%) (Auto) 75.9 % Lymphocytes (%) (Auto) 14.4 % Monocytes (%) (Auto) 7.0 % Eosinophils (%) (Auto) 2.1 % Basophils (%) (Auto) 0.2 % Neutrophils # (Auto) 4.01 K/uL Lymphocytes # (Auto) 0.76 K/uL Monocytes # (Auto) 0.37 K/uL Eosinophils # (Auto) 0.11 K/uL Basophils # (Auto) 0.01 K/uL Micro Results: MRSA swab is negative. Blood cultures show no growth to date. Recent Pertinent Medications Also on Levaquin 250 mg IV q48h and Zosyn 4.5 gm IV extended infusion q12h. Assessment & Plan * Random Vancomycin level obtained this AM = 17.2 is within goal therapeutic range of 15-20. * Per Nurse, patient will be getting Hemodialysis today at 1700. * Based on a pre-HD level of 17.2 this am, will give post-HD dose of Vancomycin 1000 mg IV tonight at 2200. * Ordered a new random Vanco level with AM labs on 10/05/16. * Will continue to dose patient with single doses of Vancomycin based on pre-HD levels. Pharmacy will continue to follow and will adjust dose/frequency as necessary. Thank you
--- NOTE | 2016-10-03 11:50 | Nephrology Progress Note ---
Nephrology Progress Note Date of Service Oct 03, 2016. Chief Complaint ESRD Subjective No acute events overnight. Fevers defervesced. No chills. Denies cough. Shortness of breath significantly improved. Appetite good. Tolerated HD yesterday without complications, UF 2.3 kg. Review of Systems A complete review of systems was performed. Pertinent positives are noted above. All other systems are negative. Vital Signs Last 8 Hrs Date Time Temp Pulse Resp B/P Pulse Ox O2 Delivery O2 Flow Rate FiO2 10/03/16 07:58 37.0 69 17 144/70 97 Nasal Cannula 3.0 10/03/16 07:45 Nasal Cannula 3.0 10/03/16 07:24 77 16 97 Nasal Cannula 3.0 10/03/16 04:28 36.9 67 20 132/69 95 Nasal Cannula 5.0 10/03/16 04:00 Nasal Cannula 5.0 I & O 24-Hour Column 10/03/16 08:00 Intake Total 849 ml Output Total 2393 ml Balance -1544 ml Last Recorded Weight Weight (Kilograms): 102.200 Physical Exam General Appearance: WD/WN, no apparent distress, + obese Head: normocephalic, atraumatic Eyes: normal inspection, sclerae normal ENT: normal ENT inspection, pharynx normal Neck: supple, no JVD Respiratory/Chest: no respiratory distress, no accessory muscle use, + decreased breath sounds Cardiovascular: regular rate, rhythm, + systolic murmur Back: normal inspection, no CVA tenderness Abdomen/GI: non tender, soft Extremities/Musculoskelatal: normal inspection, + pedal edema, + pertinent finding (R BKA, AVF with thrill and bruit) Neurologic/Psych: alert, oriented x 3 Family History FHx: musculoskeletal disease Social History Smoking Status: Unknown if ever smoked Smokeless Tobacco Use: No Alcohol Use: none Drug Use: none Marital Status: Housing Status: lives with family Occupation: retired Laboratory Results Past 24 Hours 10/03/16 05:53 Red Blood Count 2.76, Mean Corpuscular Volume 93.8, Mean Corpuscular Hemoglobin 31.2, Mean Corpuscular Hemoglobin Concent 33.2, Mean Platelet Volume 9.1, Neutrophils (%) (Auto) 75.9, Lymphocytes (%) (Auto) 14.4, Monocytes (%) (Auto) 7.0, Eosinophils (%) (Auto) 2.1, Basophils (%) (Auto) 0.2, Neutrophils # (Auto) 4.01, Lymphocytes # (Auto) 0.76, Monocytes # (Auto) 0.37, Eosinophils # (Auto) 0.11, Basophils # (Auto) 0.01 10/03/16 05:53 Test 10/02/16 15:59 10/02/16 20:25 10/02/16 20:31 10/02/16 23:20 Bedside Glucose 100 mg/dl (70-90) 90 mg/dl (70-90) Lactic Acid Level 0.9 mmol/L (0.4-2.0) Total Creatine Kinase 186 U/L (26-192) 198 U/L (26-192) Creatine Kinase MB 1.3 ng/ml (0.5-3.6) 1.1 ng/ml (0.5-3.6) Creatine Kinase MB Ratio 0.7 (0-3.0) 0.6 (0-3.0) Troponin I 1.150 ng/ml (0-0.045) 0.996 ng/ml (0-0.045) Procalcitonin 2.17 ng/mL (0-0.5) Test 10/03/16 05:53 10/03/16 07:12 10/03/16 07:28 10/03/16 09:02 White Blood Count 5.28 K/uL (4.8-10.8) Red Blood Count 2.76 M/uL (4.2-5.4) Hemoglobin 8.6 g/dL (12.0-16.0) Hematocrit 25.9 % (37-47) Mean Corpuscular Volume 93.8 fL (80-100) Mean Corpuscular Hemoglobin 31.2 pg (25-34) Mean Corpuscular Hemoglobin Concent 33.2 g/dl (32-36) Platelet Count 125 K/uL (130-400) Mean Platelet Volume 9.1 fL (7.4-10.4) Neutrophils (%) (Auto) 75.9 % Lymphocytes (%) (Auto) 14.4 % Monocytes (%) (Auto) 7.0 % Eosinophils (%) (Auto) 2.1 % Basophils (%) (Auto) 0.2 % Neutrophils # (Auto) 4.01 K/uL (1.4-6.5) Lymphocytes # (Auto) 0.76 K/uL (1.2-3.4) Monocytes # (Auto) 0.37 K/uL (0.11-0.59) Eosinophils # (Auto) 0.11 K/uL (0-0.5) Basophils # (Auto) 0.01 K/uL (0-0.2) RDW Standard Deviation 56.5 fL (36.4-46.3) RDW Coefficient of Variation 16.4 % (11.5-14.5) Immature Granulocyte % (Auto) 0.4 % Immature Granulocyte # (Auto) 0.02 K/uL (0.00-0.02) Red Blood Cell Morphology Unremarkable Prothrombin Time 14.0 SECONDS (9.0-12.0) Prothromb Time International Ratio 1.3 (0.9-1.1) Activated Partial Thromboplast Time 33.6 SECONDS (21.0-31.0) Partial Thromboplastin Ratio 1.3 Anion Gap 12.0 mmol/L (3-11) Est Creatinine Clear Calc Drug Dose 14.1 ml/min Estimated GFR () 10.7 Estimated GFR (Non- 9.2 BUN/Creatinine Ratio 5.2 (10-20) Lactic Acid Level 0.9 mmol/L (0.4-2.0) Calcium Level 8.6 mg/dl (8.5-10.1) Magnesium Level 2.2 mg/dl (1.8-2.4) Total Bilirubin 0.5 mg/dl (0.2-1) Direct Bilirubin 0.2 mg/dl (0-0.2) Aspartate Amino Transf (AST/SGOT) 16 U/L (15-37) Alanine Aminotransferase (ALT/SGPT) 19 U/L (12-78) Alkaline Phosphatase 52 U/L (45-117) Total Protein 6.9 gm/dl (6.4-8.2) Albumin 2.5 gm/dl (3.4-5.0) Procalcitonin 2.46 ng/mL (0-0.5) Hepatitis B Surface Antigen NEG (NEG) Hepatitis B Surface Antibody POS Total Creatine Kinase 184 U/L (26-192) Creatine Kinase MB 1.1 ng/ml (0.5-3.6) Creatine Kinase MB Ratio 0.6 (0-3.0) Troponin I 0.721 ng/ml (0-0.045) Bedside Glucose 91 mg/dl (70-90) Random Vancomycin Level 17.2 mcg/ml Allergies Coded Allergies: No Known Allergies (Verified , 07/08/16) Medications Current Inpatient Medications Medications (Trade) Dose Ordered Sig/Sheela Route Start Time Stop Time Status Last Admin Dose Admin Acetaminophen (Tylenol Tab) 1,000 mg Q8 PRN PO 10/02/16 01:00 11/01/16 00:59 Amiodarone HCl (Cordarone Tab) 200 mg BID PO 10/02/16 09:00 11/01/16 08:59 10/03/16 08:02 200 MG Amlodipine Besylate (Norvasc Tab) 5 mg QAM PO 10/02/16 09:00 11/01/16 08:59 10/03/16 08:03 5 MG Atorvastatin Calcium (Lipitor Tab) 40 mg QAM PO 10/02/16 09:00 11/01/16 08:59 10/03/16 08:02 40 MG Calcium Acetate (Phoslo Cap) 667 mg TIDM PO 10/02/16 08:00 11/01/16 07:59 10/03/16 08:02 667 MG Clopidogrel Bisulfate (plAVix TAB) 75 mg QAM PO 10/02/16 09:00 11/01/16 08:59 10/03/16 08:03 75 MG Docusate Sodium (coLACE CAP) 100 mg BID PO 10/02/16 09:00 11/01/16 08:59 10/03/16 08:02 100 MG Gabapentin (Neurontin Cap) 300 mg BID PO 10/02/16 09:00 11/01/16 08:59 10/03/16 08:03 300 MG Gemfibrozil (Lopid Tab) 600 mg BID PO 10/02/16 09:00 11/01/16 08:59 10/03/16 08:02 600 MG Insulin Glargine (Lantus Solostar Pen) 70 unit QPM SQ 10/02/16 21:00 11/01/16 20:59 10/02/16 21:42 70 UNIT Isosorbide Mononitrate (Imdur Ext Rel Tab) 60 mg QAM PO 10/02/16 09:00 11/01/16 08:59 10/03/16 08:02 60 MG Metoprolol Tartrate (Lopressor Tab) 100 mg BID PO 10/02/16 09:00 11/01/16 08:59 10/03/16 08:02 100 MG Pregabalin (Lyrica Cap) 25 mg BID PO 10/02/16 09:00 11/01/16 08:59 10/03/16 08:11 25 MG Tramadol HCl (Ultram Tab) 50 mg Q4H PRN PO 10/02/16 01:00 11/01/16 00:59 Zolpidem Tartrate (Ambien Tab) 5 mg HS PRN PO 10/02/16 01:00 11/01/16 00:59 Vitamin B Complex (Vitamin B Complex) 1 tab QAM PO 10/02/16 09:00 11/01/16 08:59 10/03/16 08:03 1 TAB Ondansetron HCl (Zofran Inj) 4 mg Q6H PRN IV 10/02/16 01:00 11/01/16 00:59 Insulin Aspart (novoLOG ASPART) SLIDING SCALE If C... ACHS SC 10/02/16 06:30 11/01/16 06:59 10/03/16 08:07 5 UNITS Glucose (Glucose 40% Gel) UD PRN PO 10/02/16 01:00 11/01/16 00:59 Glucose (Glucose Chew Tab) 1 tabs UD PRN PO 10/02/16 01:00 11/01/16 00:59 Dextrose (Dextrose 50% 50ML Syringe) 50 ml UD PRN IV 10/02/16 01:00 11/01/16 00:59 Glucagon (Glucagon Inj) 1 mg UD PRN SQ 10/02/16 01:00 11/01/16 00:59 Guaifenesin (Organidin Nr Tab) 600 mg BID PO 10/02/16 09:00 11/01/16 08:59 10/03/16 08:03 600 MG Budesonide (Pulmicort Respules 0.5MG/ 2ML Neb Soln) 0.5 mg BIDR INH 10/02/16 08:00 11/01/16 07:59 10/03/16 07:24 0.5 MG Ipratropium Temperance (Atrovent 0.02% 0.5MG/2.5ML Neb) 0.5 mg Q6R INH 10/02/16 03:00 11/01/16 02:59 10/03/16 07:24 0.5 MG Levalbuterol (Xopenex 1.25MG/ 0.5ML Neb) 1.25 mg Q6R INH 10/02/16 03:00 11/01/16 02:59 10/03/16 07:24 1.25 MG Ipratropium Temperance (Atrovent 0.02% 0.5MG/2.5ML Neb) 0.5 mg Q2H PRN INH 10/02/16 01:45 11/01/16 01:44 Levalbuterol 1.25 mg 1.25 mg Q2H PRN INH 10/02/16 01:45 11/01/16 01:44 Piperacillin Sod/ Tazobactam Sod/ Dextrose (Zosyn Iv/D5 100ml) 120 ml @ 30 mls/hr Q12H IV 10/02/16 10:00 10/09/16 09:59 10/03/16 10:09 30 MLS/HR Piperacillin Sod/ Tazobactam Sod (Consult) 1 ea UD PRN N/A 10/02/16 02:30 11/01/16 02:29 Vancomycin HCl (Consult) 1 ea UD PRN N/A 10/02/16 02:30 11/01/16 02:29 Levofloxacin 1 ea 1 ea UD PRN N/A 10/02/16 02:30 11/01/16 02:29 Levofloxacin/Prmx (Levaquin / D5W/ Premixed D5W) 50 ml @ 50 mls/hr Q48H IV 10/04/16 04:00 10/11/16 03:59 Hydralazine HCl (HydrALAZINE INJ) 10 mg Q4H PRN IV. 10/02/16 13:15 11/01/16 13:14 10/02/16 14:34 10 MG Furosemide (Lasix Tab) 40 mg BID17 PO 10/02/16 17:00 11/01/16 16:59 10/03/16 08:02 40 MG Epoetin Jan (Procrit Inj) 4,000 units Sa@1200 IV 10/03/16 12:00 10/03/16 23:59 Heparin Sodium (Porcine) (Heparin Sq 5000 Unit/0.5ml) 5,000 unit Q8 SQ 10/02/16 22:00 11/01/16 21:59 10/03/16 05:28 5,000 UNIT Pantoprazole Sodium (Protonix Tab) 40 mg QAM PO 10/03/16 09:00 11/02/16 08:59 10/03/16 08:03 40 MG Impression (1) ESRD on dialysis (2) Hypoxia (3) Anemia (4) Hx of right BKA (5) Hypertension (6) Diabetes mellitus (7) Pneumonia Umu is a 66-year-old female with 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 Umu was admitted to [facility] with fevers and shaking chills. She was at [facility] for PT for a new right lower extremity prosthesis. She had acute hypoxic respiratory failure on presentation. Chest x-ray documenting pulmonary congestion and right lower lobe infiltrate. Recently had right BKA, and [facility]. PMH also significant for HTN, DM and chronic diabetic ulcer, osteomyelitis and BKA. Recommendations -- HD today per TTS schedule, orders entered into EMR. UF as tolerated. -- Medications appropriate for renal function -- Continue furosemide 40 mg twice daily -- Wean supplemental oxygen as tolerated -- PT/OT -- Renal diet -- Continue Phoslo QAC -- Continue amlodipine with appropriate BP control -- Epogen 4000 QHD for anemia of CKD
[2016-10-03] MEDS ORDERED: EPOETIN ALFA 4000 UNITS/ML VIAL IV SCH (12:00)
[2016-10-03] MEDS: ACETAMINOPHEN 500 MG TAB PO PRN (18:34)
--- NOTE | 2016-10-03 20:26 | Hospitalist Progress Note ---
Hospitalist Progress Note Date of Service Oct 03, 2016. Subjective breathing better, had fever as well today nurse noted blister in the 2nd toe of left foot Constitutional: + fever Cardiovascular: No chest pain Objective Vital Signs Date Time Temp Pulse Resp B/P Pulse Ox O2 Delivery O2 Flow Rate FiO2 10/03/16 19:51 38.1 82 20 122/64 90 Nasal Cannula 3.0 10/03/16 19:17 82 16 90 Nasal Cannula 3.0 10/03/16 18:39 38.8 10/03/16 16:00 37.1 81 18 157/71 97 Nasal Cannula 3.0 10/03/16 16:00 Nasal Cannula 3.0 10/03/16 15:20 37.2 70 141/66 10/03/16 15:00 69 124/58 10/03/16 14:45 67 133/53 10/03/16 14:30 64 121/52 10/03/16 14:15 60 108/46 10/03/16 14:00 57 110/68 10/03/16 13:45 62 122/46 10/03/16 13:30 60 109/49 10/03/16 13:15 60 107/56 10/03/16 13:00 60 100/46 10/03/16 12:45 61 101/48 10/03/16 12:35 60 90/47 10/03/16 12:30 Nasal Cannula 3.0 10/03/16 12:28 37.5 61 98/45 10/03/16 07:58 37.0 69 17 144/70 97 Nasal Cannula 3.0 10/03/16 07:45 Nasal Cannula 3.0 10/03/16 07:24 77 16 97 Nasal Cannula 3.0 10/03/16 04:28 36.9 67 20 132/69 95 Nasal Cannula 5.0 10/03/16 04:00 Nasal Cannula 5.0 10/03/16 01:29 76 16 92 Nasal Cannula 5.0 10/03/16 00:00 Nasal Cannula 5.0 10/02/16 22:52 37.5 79 20 153/72 92 Nasal Cannula 5.0 Physical Exam General Appearance: no apparent distress Respiratory/Chest: no respiratory distress, + decreased breath sounds Cardiovascular: regular rate, rhythm Abdomen: normal bowel sounds, non tender, soft Neurologic/Psychiatric: alert, oriented x 3 Skin: warm/dry Laboratory Results Last 24 Hours Test 10/02/16 20:31 10/02/16 23:20 10/03/16 05:53 10/03/16 07:12 Bedside Glucose 90 mg/dl Total Creatine Kinase 198 U/L 184 U/L Creatine Kinase MB 1.1 ng/ml 1.1 ng/ml Creatine Kinase MB Ratio 0.6 0.6 Troponin I 0.996 ng/ml 0.721 ng/ml White Blood Count 5.28 K/uL Red Blood Count 2.76 M/uL Hemoglobin 8.6 g/dL Hematocrit 25.9 % Mean Corpuscular Volume 93.8 fL Mean Corpuscular Hemoglobin 31.2 pg Mean Corpuscular Hemoglobin Concent 33.2 g/dl Platelet Count 125 K/uL Mean Platelet Volume 9.1 fL Neutrophils (%) (Auto) 75.9 % Lymphocytes (%) (Auto) 14.4 % Monocytes (%) (Auto) 7.0 % Eosinophils (%) (Auto) 2.1 % Basophils (%) (Auto) 0.2 % Neutrophils # (Auto) 4.01 K/uL Lymphocytes # (Auto) 0.76 K/uL Monocytes # (Auto) 0.37 K/uL Eosinophils # (Auto) 0.11 K/uL Basophils # (Auto) 0.01 K/uL RDW Standard Deviation 56.5 fL RDW Coefficient of Variation 16.4 % Immature Granulocyte % (Auto) 0.4 % Immature Granulocyte # (Auto) 0.02 K/uL Red Blood Cell Morphology Unremarkable Prothrombin Time 14.0 SECONDS Prothromb Time International Ratio 1.3 Activated Partial Thromboplast Time 33.6 SECONDS Partial Thromboplastin Ratio 1.3 Sodium Level 137 mmol/L Potassium Level 4.4 mmol/L Chloride Level 98 mmol/L Carbon Dioxide Level 27 mmol/L Anion Gap 12.0 mmol/L Blood Urea Nitrogen 24 mg/dl Creatinine 4.60 mg/dl Est Creatinine Clear Calc Drug Dose 14.1 ml/min Estimated GFR () 10.7 Estimated GFR (Non- 9.2 BUN/Creatinine Ratio 5.2 Random Glucose 92 mg/dl Lactic Acid Level 0.9 mmol/L Calcium Level 8.6 mg/dl Magnesium Level 2.2 mg/dl Total Bilirubin 0.5 mg/dl Direct Bilirubin 0.2 mg/dl Aspartate Amino Transf (AST/SGOT) 16 U/L Alanine Aminotransferase (ALT/SGPT) 19 U/L Alkaline Phosphatase 52 U/L Total Protein 6.9 gm/dl Albumin 2.5 gm/dl Procalcitonin 2.46 ng/mL Hepatitis B Surface Antigen NEG Hepatitis B Surface Antibody POS Test 10/03/16 07:28 10/03/16 09:02 10/03/16 11:52 10/03/16 16:45 Bedside Glucose 91 mg/dl 184 mg/dl 93 mg/dl Random Vancomycin Level 17.2 mcg/ml Assessment and Plan 66-year-old who presents in respiratory distress. Sepsis - Likely secondary to right-sided pneumonia - Patient is currently on broad-spectrum antibiotics including Levaquin, vancomycin and Piperacillin and tazobactam - No evidence of shock; patient isn't fluid overloaded state, therefore withheld IV fluid boluses - Blood cultures are neg - Clinic or lactate in the ED was 2.17; pro-calcitonin elevated as well - continuing to have fever - follow Acute CHF exacerbation - The patient has received 20 mg by mouth Lasix, per home dose - Patient also received 80 mg Lasix IV - diuresed well - Intake and output daily - Daily weights - AHA, low-sodium diet - Continue home dose of metoprolol - Continue home dose of Lasix - ROSSI inhibitor and ARB, are both contraindicated in light of end-stage renal disease Left 2nd toe injury blister - wound care consult History of SVT - Continue metoprolol History of coronary artery disease - Continue clopidogrel - Continue metoprolol - Continue indoor Hypertension - Continue amlodipine and metoprolol Paroxysmal supraventricular tachycardia/hypertension/CHF--continue amiodarone 200 mg by mouth twice a day, amlodipine 5 mg by mouth every morning, clopidogrel 75 mg by mouth every morning, Aranesp 60 g every week, furosemide 20 mg by mouth twice a day, Imdur extended release 60 mg by mouth every morning and metoprolol tartrate 100 mg by mouth twice a day. Insulin-dependent Diabetes mellitus - Continue home regimen of Lantus (36 units AM and 70 units / afternoon) - Aspart sliding scale End-stage renal disease - Patient follows with Dr. Jordan - Gets dialysis Wednesday and Wednesday; will consult nephrology for dialysis recommendations in inpatient setting - Creatinine on arrival 4.2; better than baseline of 5-6 - Continue I/Os and daily weights - Continue medications per nephrology recommendations Hypercholesterolemia - continue atorvastatin - Continue gemfibrozil Peripheral neuropathy - continue gabapentin - Continue Lyrica DVT prophylaxis - Heparin subcutaneous 3 times a day Code Status - Level I full code Disposition - Med/telemetry - PT OT have been consulted - The patient is arriving from [facility]. Per H&P, she only had 3 days left of therapy prior to anticipating discharge. Patient does not have her prosthesis at this time, but notes that her will bring prosthesis in. If possible continued prosthesis training should continue while in the inpatient setting if patient is able to participate.
[2016-10-03] MEDS: INSULIN GLARGINE SOLOSTAR 100 UNITS/ML 3 ML PEN SQ SCH (22:17)
[2016-10-04] VITALS (14 sets, daily range): BP systolic 86–148; BP diastolic 46–82; PULSE 58–95; TEMP 36.4–38.7; O2SAT 86–95
[2016-10-04] MEDS ORDERED: LEVOFLOXACIN 250MG / D5W IV SCH (04:00)
[2016-10-04] MEDS: HEPARIN SOD 5000 UNIT/0.5 ML CARP SQ SCH ×3 (05:52→21:10)
[2016-10-04] MEDS: ACETAMINOPHEN 500 MG TAB PO PRN ×2 (05:58→20:36)
[2016-10-04 06:51] LABS: BASO % 0.6 %; BASO ABS # 0.03 K/uL (0-0.2); COMPLETE YES; HEMATOCRIT 27.4 % (37-47); IG% 0.4 %; LYMPH % 10.6 %; LYMPH ABS # 0.56 K/uL (1.2-3.4); MEAN CELL VOLUME 94.5 fL (80-100); MEAN CORPUSCULAR HEMOGLOBIN 32.1 pg (25-34); MEAN CORPUSCULAR HGB CONC 33.9 g/dl (32-36); MEAN PLATELET VOLUME 9.1 fL (7.4-10.4); MONO % 6.7 %; NEUT % 80.7 %; PLATELET COUNT 151 K/uL (130-400); WHITE BLOOD COUNT 5.26 K/uL (4.8-10.8)
[2016-10-04 07:00] LABS: INR 1.3 (0.9-1.1); PARTIAL THROMBOPLASTIN RATIO 1.4; PROTHROMBIN TIME (PATIENT) 13.9 SECONDS (9.0-12.0)
[2016-10-04] MEDS: LEVALBUTEROL 1.25MG/0.5ML NEB INH SCH ×3 (07:36→19:36)
[2016-10-04] MEDS: IPRATROPIUM BROMIDE NEB SOLN 0.02% 2.5 ML VIAL INH SCH ×3 (07:36→19:36)
[2016-10-04] MEDS: BUDESONIDE 0.5 MG/2 ML VIAL (PULMICORT) INH SCH ×2 (07:36→19:36)
[2016-10-04] MEDS: DOCUSATE SODIUM 100 MG CAP PO SCH ×2 (07:53→20:36)
[2016-10-04] MEDS: AMIODARONE 200 MG TAB PO SCH ×2 (07:58→20:36)
[2016-10-04] MEDS: CALCIUM ACETATE 667MG GELCAP PO SCH ×3 (07:58→17:01)
[2016-10-04] MEDS: FUROSEMIDE 40 MG TAB PO SCH ×2 (07:59→17:01)
[2016-10-04] MEDS: ATORVASTATIN 40 MG TAB PO SCH (07:59)
[2016-10-04] MEDS: VITAMIN B COMPLEX TAB PO SCH (07:59)
[2016-10-04] MEDS: CLOPIDOGREL BISULFATE 75 MG TAB PO SCH (07:59)
[2016-10-04] MEDS: PANTOprazole SOD 40 MG TAB PO SCH (07:59)
[2016-10-04] MEDS: METOPROLOL TARTRATE 100 MG TAB PO SCH ×2 (07:59→20:36)
[2016-10-04] MEDS: AMLODIPINE BESYLATE 5 MG TAB PO SCH (07:59)
[2016-10-04] MEDS: GABAPENTIN 300 MG CAP PO SCH ×2 (07:59→20:36)
[2016-10-04] MEDS: PREGABALIN 25MG CAP PO SCH ×2 (07:59→20:35)
[2016-10-04] MEDS: GEMFIBROZIL 600 MG TAB PO SCH ×2 (07:59→20:36)
[2016-10-04] MEDS: GUAIFENESIN 200 MG TAB PO SCH ×2 (07:59→20:36)
[2016-10-04] MEDS: INSULIN ASPART 100 UNITS/ML 3 ML PEN SC SCH ×4 (08:01→21:09)
[2016-10-04] MEDS: ISOSORBIDE MONONITRATE 60 MG TABCR PO SCH (08:07)
[2016-10-04 08:16] LABS: ALKALINE PHOSPHATASE 51 U/L (45-117); ALT/SGPT 13 U/L (12-78); AST/SGOT 17 U/L (15-37); BLOOD UREA NITROGEN 27 mg/dl (7-18); BUN/CREATININE RATIO 5.8 (10-20); CALCIUM 8.4 mg/dl (8.5-10.1); CARBON DIOXIDE 29 mmol/L (21-32); CHLORIDE 95 mmol/L (98-107); GLUCOSE 90 mg/dl (70-99); MAGNESIUM 2.1 mg/dl (1.8-2.4); POTASSIUM 4.5 mmol/L (3.5-5.1); SODIUM 135 mmol/L (136-145)
[2016-10-04] MEDS ORDERED: VANCOMYCIN INJ 1,350 MG in SODIUM CHLORIDE 0.9% 250ML 250 ML IV SCH (10:15)
[2016-10-04] MEDS: PIPERACILL/TAZOBAC IV 4.5 GM in DEXTROSE 5% 100ML IV SCH ×2 (10:17→22:06)
--- NOTE | 2016-10-04 11:59 | Nephrology Progress Note ---
Nephrology Progress Note Date of Service Oct 04, 2016. Chief Complaint ESRD Subjective Umu was unfortunately experiencing fevers overnight. She described some shaking chills transiently following hemodialysis. Overall, she tolerated hemodialysis well. Net UF 2.1 kg. She denies shortness of breath at rest. She reports concern about losing strength that was recently gained at [facility] from being in bed in the hospital. No current fevers or chills. She denies cough. Denies pain. Review of Systems A complete review of systems was performed. Pertinent positives are noted above. All other systems are negative. Vital Signs Last 8 Hrs Date Time Temp Pulse Resp B/P Pulse Ox O2 Delivery O2 Flow Rate FiO2 10/04/16 11:51 36.8 58 18 86/46 93 Nasal Cannula 3.0 10/04/16 07:48 37.1 95 3.0 10/04/16 07:46 38.7 95 18 113/66 93 Nasal Cannula 3.0 10/04/16 07:45 Nasal Cannula 3.0 10/04/16 07:36 85 16 89 Nasal Cannula 5.0 10/04/16 06:30 92 Nasal Cannula 5.0 10/04/16 06:00 37.9 86 Nasal Cannula 3.0 10/04/16 04:13 36.8 91 18 148/63 10/04/16 04:00 90 Nasal Cannula 3.0 I & O 24-Hour Column 10/04/16 08:00 Intake Total 504 ml Output Total 2414 ml Balance -1910 ml Last Recorded Weight Weight (Kilograms): 102.900 Physical Exam General Appearance: WD/WN, no apparent distress Head: normocephalic, atraumatic Eyes: normal inspection, sclerae normal ENT: normal ENT inspection, pharynx normal Neck: supple, no JVD Respiratory/Chest: lungs clear, no respiratory distress, no accessory muscle use Cardiovascular: regular rate, rhythm, no gallop, no murmur Abdomen/GI: non tender, soft Extremities/Musculoskelatal: normal inspection, + pedal edema, + pertinent finding (R BKA, LUE AVF with thrill and bruit) Neurologic/Psych: alert, oriented x 3 Family History FHx: musculoskeletal disease Social History Smoking Status: Unknown if ever smoked Smokeless Tobacco Use: No Alcohol Use: none Drug Use: none Marital Status: Housing Status: lives with family Occupation: retired Laboratory Results Past 24 Hours 10/04/16 06:38 Red Blood Count 2.90, Mean Corpuscular Volume 94.5, Mean Corpuscular Hemoglobin 32.1, Mean Corpuscular Hemoglobin Concent 33.9, Mean Platelet Volume 9.1, Neutrophils (%) (Auto) 80.7, Lymphocytes (%) (Auto) 10.6, Monocytes (%) (Auto) 6.7, Eosinophils (%) (Auto) 1.0, Basophils (%) (Auto) 0.6, Neutrophils # (Auto) 4.25, Lymphocytes # (Auto) 0.56, Monocytes # (Auto) 0.35, Eosinophils # (Auto) 0.05, Basophils # (Auto) 0.03 10/04/16 06:38 Test 10/03/16 16:45 10/03/16 20:16 10/04/16 06:38 10/04/16 07:25 Bedside Glucose 93 mg/dl (70-90) 143 mg/dl (70-90) 91 mg/dl (70-90) White Blood Count 5.26 K/uL (4.8-10.8) Red Blood Count 2.90 M/uL (4.2-5.4) Hemoglobin 9.3 g/dL (12.0-16.0) Hematocrit 27.4 % (37-47) Mean Corpuscular Volume 94.5 fL (80-100) Mean Corpuscular Hemoglobin 32.1 pg (25-34) Mean Corpuscular Hemoglobin Concent 33.9 g/dl (32-36) Platelet Count 151 K/uL (130-400) Mean Platelet Volume 9.1 fL (7.4-10.4) Neutrophils (%) (Auto) 80.7 % Lymphocytes (%) (Auto) 10.6 % Monocytes (%) (Auto) 6.7 % Eosinophils (%) (Auto) 1.0 % Basophils (%) (Auto) 0.6 % Neutrophils # (Auto) 4.25 K/uL (1.4-6.5) Lymphocytes # (Auto) 0.56 K/uL (1.2-3.4) Monocytes # (Auto) 0.35 K/uL (0.11-0.59) Eosinophils # (Auto) 0.05 K/uL (0-0.5) Basophils # (Auto) 0.03 K/uL (0-0.2) RDW Standard Deviation 55.7 fL (36.4-46.3) RDW Coefficient of Variation 16.1 % (11.5-14.5) Immature Granulocyte % (Auto) 0.4 % Immature Granulocyte # (Auto) 0.02 K/uL (0.00-0.02) Prothrombin Time 13.9 SECONDS (9.0-12.0) Prothromb Time International Ratio 1.3 (0.9-1.1) Activated Partial Thromboplast Time 36.6 SECONDS (21.0-31.0) Partial Thromboplastin Ratio 1.4 Anion Gap 11.0 mmol/L (3-11) Est Creatinine Clear Calc Drug Dose 13.8 ml/min Estimated GFR () 10.4 Estimated GFR (Non- 9.0 BUN/Creatinine Ratio 5.8 (10-20) Calcium Level 8.4 mg/dl (8.5-10.1) Magnesium Level 2.1 mg/dl (1.8-2.4) Total Bilirubin 0.4 mg/dl (0.2-1) Direct Bilirubin < 0.1 mg/dl (0-0.2) Aspartate Amino Transf (AST/SGOT) 17 U/L (15-37) Alanine Aminotransferase (ALT/SGPT) 13 U/L (12-78) Alkaline Phosphatase 51 U/L (45-117) Total Protein 7.4 gm/dl (6.4-8.2) Albumin 2.6 gm/dl (3.4-5.0) Allergies Coded Allergies: No Known Allergies (Verified , 07/08/16) Medications Current Inpatient Medications Medications (Trade) Dose Ordered Sig/Sheela Route Start Time Stop Time Status Last Admin Dose Admin Acetaminophen (Tylenol Tab) 1,000 mg Q8 PRN PO 10/02/16 01:00 11/01/16 00:59 10/04/16 05:58 1,000 MG Amiodarone HCl (Cordarone Tab) 200 mg BID PO 10/02/16 09:00 11/01/16 08:59 10/04/16 07:58 200 MG Amlodipine Besylate (Norvasc Tab) 5 mg QAM PO 10/02/16 09:00 11/01/16 08:59 10/04/16 07:59 5 MG Atorvastatin Calcium (Lipitor Tab) 40 mg QAM PO 10/02/16 09:00 11/01/16 08:59 10/04/16 07:59 40 MG Calcium Acetate (Phoslo Cap) 667 mg TIDM PO 10/02/16 08:00 11/01/16 07:59 10/04/16 07:58 667 MG Clopidogrel Bisulfate (plAVix TAB) 75 mg QAM PO 10/02/16 09:00 11/01/16 08:59 10/04/16 07:59 75 MG Docusate Sodium (coLACE CAP) 100 mg BID PO 10/02/16 09:00 11/01/16 08:59 10/03/16 08:02 100 MG Gabapentin (Neurontin Cap) 300 mg BID PO 10/02/16 09:00 11/01/16 08:59 10/04/16 07:59 300 MG Gemfibrozil (Lopid Tab) 600 mg BID PO 10/02/16 09:00 11/01/16 08:59 10/04/16 07:59 600 MG Insulin Glargine (Lantus Solostar Pen) 70 unit QPM SQ 10/02/16 21:00 11/01/16 20:59 10/03/16 22:17 70 UNIT Isosorbide Mononitrate (Imdur Ext Rel Tab) 60 mg QAM PO 10/02/16 09:00 11/01/16 08:59 10/04/16 08:07 60 MG Metoprolol Tartrate (Lopressor Tab) 100 mg BID PO 10/02/16 09:00 11/01/16 08:59 10/04/16 07:59 100 MG Pregabalin (Lyrica Cap) 25 mg BID PO 10/02/16 09:00 11/01/16 08:59 10/04/16 07:59 25 MG Tramadol HCl (Ultram Tab) 50 mg Q4H PRN PO 10/02/16 01:00 11/01/16 00:59 Zolpidem Tartrate (Ambien Tab) 5 mg HS PRN PO 10/02/16 01:00 11/01/16 00:59 Vitamin B Complex (Vitamin B Complex) 1 tab QAM PO 10/02/16 09:00 11/01/16 08:59 10/04/16 07:59 1 TAB Ondansetron HCl (Zofran Inj) 4 mg Q6H PRN IV 10/02/16 01:00 11/01/16 00:59 10/04/16 06:21 4 MG Insulin Aspart (novoLOG ASPART) SLIDING SCALE If C... ACHS SC 10/02/16 06:30 11/01/16 06:59 10/04/16 08:01 2 UNITS Glucose (Glucose 40% Gel) UD PRN PO 10/02/16 01:00 11/01/16 00:59 Glucose (Glucose Chew Tab) 1 tabs UD PRN PO 10/02/16 01:00 11/01/16 00:59 Dextrose (Dextrose 50% 50ML Syringe) 50 ml UD PRN IV 10/02/16 01:00 11/01/16 00:59 Glucagon (Glucagon Inj) 1 mg UD PRN SQ 10/02/16 01:00 11/01/16 00:59 Guaifenesin (Organidin Nr Tab) 600 mg BID PO 10/02/16 09:00 11/01/16 08:59 10/04/16 07:59 600 MG Budesonide (Pulmicort Respules 0.5MG/ 2ML Neb Soln) 0.5 mg BIDR INH 10/02/16 08:00 11/01/16 07:59 10/04/16 07:36 0.5 MG Ipratropium [place] (Atrovent 0.02% 0.5MG/2.5ML Neb) 0.5 mg Q6R INH 10/02/16 03:00 11/01/16 02:59 10/04/16 07:36 0.5 MG Levalbuterol (Xopenex 1.25MG/ 0.5ML Neb) 1.25 mg Q6R INH 10/02/16 03:00 11/01/16 02:59 10/04/16 07:36 1.25 MG Ipratropium [place] (Atrovent 0.02% 0.5MG/2.5ML Neb) 0.5 mg Q2H PRN INH 10/02/16 01:45 11/01/16 01:44 Levalbuterol 1.25 mg 1.25 mg Q2H PRN INH 10/02/16 01:45 11/01/16 01:44 Piperacillin Sod/ Tazobactam Sod/ Dextrose (Zosyn Iv/D5 100ml) 120 ml @ 30 mls/hr Q12H IV 10/02/16 10:00 10/09/16 09:59 10/04/16 10:17 30 MLS/HR Piperacillin Sod/ Tazobactam Sod (Consult) 1 ea UD PRN N/A 10/02/16 02:30 11/01/16 02:29 Vancomycin HCl (Consult) 1 ea UD PRN N/A 10/02/16 02:30 11/01/16 02:29 Levofloxacin 1 ea 1 ea UD PRN N/A 10/02/16 02:30 11/01/16 02:29 Levofloxacin/Prmx (Levaquin / D5W/ Premixed D5W) 50 ml @ 50 mls/hr Q48H IV 10/04/16 04:00 10/11/16 03:59 10/04/16 04:00 50 MLS/HR Hydralazine HCl (HydrALAZINE INJ) 10 mg Q4H PRN IV. 10/02/16 13:15 11/01/16 13:14 10/02/16 14:34 10 MG Furosemide (Lasix Tab) 40 mg BID17 PO 10/02/16 17:00 11/01/16 16:59 10/04/16 07:59 40 MG Heparin Sodium (Porcine) (Heparin Sq 5000 Unit/0.5ml) 5,000 unit Q8 SQ 10/02/16 22:00 11/01/16 21:59 10/04/16 05:52 5,000 UNIT Pantoprazole Sodium 40 mg 40 mg QAM PO 10/03/16 09:00 11/02/16 08:59 10/04/16 07:59 40 MG Vancomycin HCl/ Sodium Chloride (Vancomycin Inj/ Nss 250ml) 277 ml @ 125 mls/hr 1015 IV 10/04/16 10:15 10/04/16 12:28 10/04/16 10:17 125 MLS/HR Impression (1) ESRD on dialysis (2) Hypoxia (3) Anemia (4) Hx of right BKA (5) Hypertension (6) Diabetes mellitus (7) Pneumonia Umu is a 66-year-old female with 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 Umu was admitted to [facility] with fevers and shaking chills. She was at [facility] for PT and a new right lower extremity prosthesis. She had acute hypoxic respiratory failure on presentation to the hospital. Chest x-ray documenting pulmonary congestion and right lower lobe infiltrate. Blood cultures negative to date. Recently had right BKA, and had been at [facility] rehab. PMH also significant for HTN, DM and chronic diabetic ulcer, osteomyelitis and BKA. Recommendations -- HD TTS -- Electrolytes, volume status and blood pressure currently appropriate. Vanco/ zosyn dosing per pharmacy -- Medications appropriate for renal function -- Continue furosemide 40 mg twice daily -- PT/OT -- Renal diet -- Continue Phoslo QAC -- Continue amlodipine -- Epogen 4000 QHD for anemia of CKD
[2016-10-04] MEDS: BENZONATATE 100MG CAP PO PRN (14:08)
--- NOTE | 2016-10-04 17:35 | Hospitalist Progress Note ---
Hospitalist Progress Note Date of Service Oct 04, 2016. Subjective denies any complains continuing to have fever Constitutional: + fever Respiratory: No shortness of breath Cardiovascular: No chest pain Abdomen: No nausea, No pain Objective Vital Signs Date Time Temp Pulse Resp B/P Pulse Ox O2 Delivery O2 Flow Rate FiO2 10/04/16 15:26 37.3 67 18 102/50 92 Nasal Cannula 3.0 10/04/16 12:30 Nasal Cannula 3.0 10/04/16 11:51 36.8 58 18 86/46 93 Nasal Cannula 3.0 10/04/16 07:48 37.1 95 3.0 10/04/16 07:46 38.7 95 18 113/66 93 Nasal Cannula 3.0 10/04/16 07:45 Nasal Cannula 3.0 10/04/16 07:36 85 16 89 Nasal Cannula 5.0 10/04/16 06:30 92 Nasal Cannula 5.0 10/04/16 06:00 37.9 86 Nasal Cannula 3.0 10/04/16 04:13 36.8 91 18 148/63 10/04/16 04:00 90 Nasal Cannula 3.0 10/04/16 00:00 95 Nasal Cannula 3.0 10/04/16 00:00 36.4 71 20 144/82 95 Nasal Cannula 3.0 10/03/16 20:00 95 Nasal Cannula 3.0 10/03/16 19:51 38.1 82 20 122/64 90 Nasal Cannula 3.0 10/03/16 19:17 82 16 90 Nasal Cannula 3.0 10/03/16 18:39 38.8 Physical Exam General Appearance: no apparent distress Neck: supple Respiratory/Chest: + pertinent finding (coarse breath sounds) Cardiovascular: regular rate, rhythm Extremities: + pertinent finding (left 2nd toe with injury blister) Neurologic/Psychiatric: alert, oriented x 3 Skin: warm/dry Laboratory Results Last 24 Hours Test 10/03/16 20:16 10/04/16 06:38 10/04/16 07:25 10/04/16 11:34 Bedside Glucose 143 mg/dl 91 mg/dl 87 mg/dl White Blood Count 5.26 K/uL Red Blood Count 2.90 M/uL Hemoglobin 9.3 g/dL Hematocrit 27.4 % Mean Corpuscular Volume 94.5 fL Mean Corpuscular Hemoglobin 32.1 pg Mean Corpuscular Hemoglobin Concent 33.9 g/dl Platelet Count 151 K/uL Mean Platelet Volume 9.1 fL Neutrophils (%) (Auto) 80.7 % Lymphocytes (%) (Auto) 10.6 % Monocytes (%) (Auto) 6.7 % Eosinophils (%) (Auto) 1.0 % Basophils (%) (Auto) 0.6 % Neutrophils # (Auto) 4.25 K/uL Lymphocytes # (Auto) 0.56 K/uL Monocytes # (Auto) 0.35 K/uL Eosinophils # (Auto) 0.05 K/uL Basophils # (Auto) 0.03 K/uL RDW Standard Deviation 55.7 fL RDW Coefficient of Variation 16.1 % Immature Granulocyte % (Auto) 0.4 % Immature Granulocyte # (Auto) 0.02 K/uL Prothrombin Time 13.9 SECONDS Prothromb Time International Ratio 1.3 Activated Partial Thromboplast Time 36.6 SECONDS Partial Thromboplastin Ratio 1.4 Sodium Level 135 mmol/L Potassium Level 4.5 mmol/L Chloride Level 95 mmol/L Carbon Dioxide Level 29 mmol/L Anion Gap 11.0 mmol/L Blood Urea Nitrogen 27 mg/dl Creatinine 4.70 mg/dl Est Creatinine Clear Calc Drug Dose 13.8 ml/min Estimated GFR () 10.4 Estimated GFR (Non- 9.0 BUN/Creatinine Ratio 5.8 Random Glucose 90 mg/dl Calcium Level 8.4 mg/dl Magnesium Level 2.1 mg/dl Total Bilirubin 0.4 mg/dl Direct Bilirubin < 0.1 mg/dl Aspartate Amino Transf (AST/SGOT) 17 U/L Alanine Aminotransferase (ALT/SGPT) 13 U/L Alkaline Phosphatase 51 U/L Total Protein 7.4 gm/dl Albumin 2.6 gm/dl Test 10/04/16 16:32 Bedside Glucose 99 mg/dl Assessment and Plan 66-year-old who presents in respiratory distress. Sepsis - CXR with no infiltrate. ? sec to pneumonia. UA negative. blood cultures neg. - Continue broad-spectrum antibiotics including Levaquin, vancomycin and Piperacillin and tazobactam - No evidence of shock; patient isn't fluid overloaded state, therefore withheld IV fluid boluses - Clinic or lactate in the ED was 2.17; pro-calcitonin elevated as well - continuing to have fever - follow - consult ID Acute CHF exacerbation - The patient has received 20 mg by mouth Lasix, per home dose - Patient also received 80 mg Lasix IV - diuresed well - Intake and output daily - Daily weights - AHA, low-sodium diet - Continue home dose of metoprolol - Continue home dose of Lasix - ROSSI inhibitor and ARB, are both contraindicated in light of end-stage renal disease Left 2nd toe injury blister - wound care consult History of SVT - Continue metoprolol History of coronary artery disease - Continue clopidogrel - Continue metoprolol - Continue indoor Hypertension - Continue amlodipine and metoprolol Paroxysmal supraventricular tachycardia/hypertension/CHF--continue amiodarone 200 mg by mouth twice a day, amlodipine 5 mg by mouth every morning, clopidogrel 75 mg by mouth every morning, Aranesp 60 g every week, furosemide 20 mg by mouth twice a day, Imdur extended release 60 mg by mouth every morning and metoprolol tartrate 100 mg by mouth twice a day. Insulin-dependent Diabetes mellitus - Continue home regimen of Lantus (36 units AM and 70 units / afternoon) - Aspart sliding scale End-stage renal disease - Patient follows with Dr. Jordan - Gets dialysis Wednesday and Wednesday; will consult nephrology for dialysis recommendations in inpatient setting - Creatinine on arrival 4.2; better than baseline of 5-6 - Continue I/Os and daily weights - Continue medications per nephrology recommendations Hypercholesterolemia - continue atorvastatin - Continue gemfibrozil Peripheral neuropathy - continue gabapentin - Continue Lyrica DVT prophylaxis - Heparin subcutaneous 3 times a day Code Status - Level I full code Disposition - Med/telemetry - PT OT have been consulted - The patient is arriving from [facility]. Per H&P, she only had 3 days left of therapy prior to anticipating discharge. Patient does not have her prosthesis at this time, but notes that her will bring prosthesis in. If possible continued prosthesis training should continue while in the inpatient setting if patient is able to participate.
[2016-10-04] MEDS: INSULIN GLARGINE SOLOSTAR 100 UNITS/ML 3 ML PEN SQ SCH (21:09)
[2016-10-05] VITALS (14 sets, daily range): BP systolic 91–149; BP diastolic 44–76; PULSE 62–90; TEMP 36.6–37.9; O2SAT 86–94
[2016-10-05] MEDS: LEVALBUTEROL 1.25MG/0.5ML NEB INH SCH ×4 (02:13→19:10)
[2016-10-05] MEDS: IPRATROPIUM BROMIDE NEB SOLN 0.02% 2.5 ML VIAL INH SCH ×4 (02:13→19:10)
[2016-10-05] MEDS: HEPARIN SOD 5000 UNIT/0.5 ML CARP SQ SCH ×3 (05:30→21:35)
[2016-10-05] MEDS: BUDESONIDE 0.5 MG/2 ML VIAL (PULMICORT) INH SCH ×2 (07:16→20:08)
[2016-10-05] MEDS: FUROSEMIDE 40 MG TAB PO SCH ×2 (08:33→16:56)
[2016-10-05] MEDS: GUAIFENESIN 200 MG TAB PO SCH ×2 (08:35→21:29)
[2016-10-05] MEDS: ATORVASTATIN 40 MG TAB PO SCH (08:36)
[2016-10-05] MEDS: CLOPIDOGREL BISULFATE 75 MG TAB PO SCH (08:36)
[2016-10-05] MEDS: GABAPENTIN 300 MG CAP PO SCH ×2 (08:36→21:30)
[2016-10-05] MEDS: AMLODIPINE BESYLATE 5 MG TAB PO SCH (08:36)
[2016-10-05] MEDS: GEMFIBROZIL 600 MG TAB PO SCH ×2 (08:37→21:28)
[2016-10-05] MEDS: VITAMIN B COMPLEX TAB PO SCH (08:37)
[2016-10-05] MEDS: PANTOprazole SOD 40 MG TAB PO SCH (08:37)
[2016-10-05] MEDS: METOPROLOL TARTRATE 100 MG TAB PO SCH ×2 (08:38→21:31)
[2016-10-05] MEDS: DOCUSATE SODIUM 100 MG CAP PO SCH ×2 (08:38→21:28)
[2016-10-05] MEDS: AMIODARONE 200 MG TAB PO SCH ×2 (08:39→21:30)
[2016-10-05] MEDS: CALCIUM ACETATE 667MG GELCAP PO SCH ×3 (08:39→16:56)
[2016-10-05] MEDS: ISOSORBIDE MONONITRATE 60 MG TABCR PO SCH (08:40)
[2016-10-05] MEDS: ACETAMINOPHEN 500 MG TAB PO PRN (08:46)
[2016-10-05] MEDS: BENZONATATE 100MG CAP PO PRN (08:48)
[2016-10-05] MEDS: PREGABALIN 25MG CAP PO SCH ×2 (08:56→21:34)
[2016-10-05] MEDS: INSULIN ASPART 100 UNITS/ML 3 ML PEN SC SCH ×4 (09:09→21:34)
[2016-10-05 09:13] LABS: BUN/CREATININE RATIO 5.6 (10-20); CALCIUM 8.5 mg/dl (8.5-10.1); CREATININE 7.5 mg/dl (0.60-1.20); POTASSIUM 4.8 mmol/L (3.5-5.1)
--- NOTE | 2016-10-05 09:47 | Pharmacy Progress Note ---
Pharmacy Antibiotic Prog Note Date of Service Oct 05, 2016. Subjective The patient is currently receiving Vanco/Zosyn Objective Height (Feet): 5 Height (Inches): 5.00 Weight (Kilograms): 103.900 Levels: Item Value Date Time Random Vancomycin Level 26.7 mcg/ml 10/05/16 0757 Random Vancomycin Level 17.2 mcg/ml 10/03/16 0902 Lab Results (24hrs): Laboratory Tests Test 10/05/16 07:57 BUN/Creatinine Ratio 5.6 Blood Urea Nitrogen 42 mg/dl Creatinine 7.50 mg/dl Micro Results: Item Value Date Time MRSA DNA Surveillance Screen - Final Complete 10/02/16 1137 Nasal Specimen Negative for MRSA by DNA Probe Blood Culture - Preliminary Resulted 10/01/16 2333 Blood NO GROWTH TO DATE. Blood Culture - Preliminary Resulted 10/01/16 2330 Blood NO GROWTH TO DATE. Assessment & Plan Pt is a 66 yo f being empirically treated with Vanco & Zosyn. Vanco is being dosed PRN 2/2 to HD. Today's random lvl was supratherapeutic at 26.7. This was achieved after a one time dose of Vanco 1350mg (12.6mg/kg) x1 on 10/04. Ms. Bennett has been voiding urine and therefore eliminating Vancomycin. Due to her body habitus I am concerned for Vanco accumulation. She receives HD on a TTS regimen and any Vanco elimination today will likely be negligible and keep her above 15mcg/mL. No additional Vanco ordered for today. I have ordered a random lvl to be drawn 10/06 with AM labs. At the present BC are both NGTD and MRSA nasal is negative. She did spike a fever this AM and will hold off on attempting to cut/ de-escalate antibiotics. Thank you for consulting the pharmacy kinetic team and including us in the care of Ms. Bennett Pharmacy will continue to follow and will adjust dose/frequency as necessary. Thank you
[2016-10-05] MEDS: PIPERACILL/TAZOBAC IV 4.5 GM in DEXTROSE 5% 100ML IV SCH (09:58)
--- NOTE | 2016-10-05 10:27 | Nephrology Progress Note ---
Nephrology Progress Note Date of Service Oct 05, 2016. Chief Complaint ESRD Subjective No acute events overnight. No complaints this morning. Dyspnea improved. Dry cough persists. No subjective fevers or chills in past 24 hours. Tmax 37.9. Appetite good. Unfortunately not able tog et out of bed with PT over the weekend. Hopeful that she can walk with therapy today. Review of Systems A complete review of systems was performed. Pertinent positives are noted above. All other systems are negative. Vital Signs Last 8 Hrs Date Time Temp Pulse Resp B/P Pulse Ox O2 Delivery O2 Flow Rate FiO2 10/05/16 10:19 36.9 10/05/16 08:30 Nasal Cannula 4.0 10/05/16 07:48 37.9 76 18 149/67 86 Nasal Cannula 3.0 10/05/16 07:16 76 16 86 Nasal Cannula 3.0 10/05/16 03:37 36.9 69 20 118/67 93 Nasal Cannula 3.0 I & O 24-Hour Column 10/05/16 08:00 Intake Total 1551 ml Output Total 100 ml Balance 1451 ml Last Recorded Weight Weight (Kilograms): 103.900 Physical Exam General Appearance: WD/WN, no apparent distress Head: normocephalic, atraumatic Eyes: normal inspection, sclerae normal ENT: normal ENT inspection, pharynx normal Neck: supple, no JVD Respiratory/Chest: lungs clear, no respiratory distress, no accessory muscle use Cardiovascular: regular rate, rhythm, no gallop, no murmur Abdomen/GI: non tender, soft Extremities/Musculoskelatal: normal inspection, no pedal edema Neurologic/Psych: alert, oriented x 3 Family History FHx: musculoskeletal disease Social History Smoking Status: Unknown if ever smoked Smokeless Tobacco Use: No Alcohol Use: none Drug Use: none Marital Status: Housing Status: lives with family Occupation: retired Laboratory Results Past 24 Hours 10/05/16 07:57 Test 10/04/16 11:34 10/04/16 16:32 10/04/16 20:39 10/05/16 07:31 Bedside Glucose 87 mg/dl (70-90) 99 mg/dl (70-90) 153 mg/dl (70-90) 73 mg/dl (70-90) Test 10/05/16 07:57 10/05/16 07:58 Anion Gap 12.0 mmol/L (3-11) Est Creatinine Clear Calc Drug Dose 8.7 ml/min Estimated GFR () 5.9 Estimated GFR (Non- 5.1 BUN/Creatinine Ratio 5.6 (10-20) Calcium Level 8.5 mg/dl (8.5-10.1) Random Vancomycin Level 26.7 mcg/ml Bedside Glucose 86 mg/dl (70-90) Allergies Coded Allergies: No Known Allergies (Verified , 07/08/16) Medications Current Inpatient Medications Medications (Trade) Dose Ordered Sig/Sheela Route Start Time Stop Time Status Last Admin Dose Admin Acetaminophen (Tylenol Tab) 1,000 mg Q8 PRN PO 10/02/16 01:00 11/01/16 00:59 10/05/16 08:46 1,000 MG Amiodarone HCl (Cordarone Tab) 200 mg BID PO 10/02/16 09:00 11/01/16 08:59 10/05/16 08:39 200 MG Amlodipine Besylate (Norvasc Tab) 5 mg QAM PO 10/02/16 09:00 11/01/16 08:59 10/05/16 08:36 5 MG Atorvastatin Calcium (Lipitor Tab) 40 mg QAM PO 10/02/16 09:00 11/01/16 08:59 10/05/16 08:36 40 MG Calcium Acetate (Phoslo Cap) 667 mg TIDM PO 10/02/16 08:00 11/01/16 07:59 10/05/16 08:39 667 MG Clopidogrel Bisulfate (plAVix TAB) 75 mg QAM PO 10/02/16 09:00 11/01/16 08:59 10/05/16 08:36 75 MG Docusate Sodium (coLACE CAP) 100 mg BID PO 10/02/16 09:00 11/01/16 08:59 10/05/16 08:38 100 MG Gabapentin (Neurontin Cap) 300 mg BID PO 10/02/16 09:00 11/01/16 08:59 10/05/16 08:36 300 MG Gemfibrozil (Lopid Tab) 600 mg BID PO 10/02/16 09:00 11/01/16 08:59 10/05/16 08:37 600 MG Insulin Glargine (Lantus Solostar Pen) 70 unit QPM SQ 10/02/16 21:00 11/01/16 20:59 10/04/16 21:09 70 UNIT Isosorbide Mononitrate (Imdur Ext Rel Tab) 60 mg QAM PO 10/02/16 09:00 11/01/16 08:59 10/05/16 08:40 60 MG Metoprolol Tartrate (Lopressor Tab) 100 mg BID PO 10/02/16 09:00 11/01/16 08:59 10/05/16 08:38 100 MG Pregabalin (Lyrica Cap) 25 mg BID PO 10/02/16 09:00 11/01/16 08:59 10/05/16 08:56 25 MG Tramadol HCl (Ultram Tab) 50 mg Q4H PRN PO 10/02/16 01:00 11/01/16 00:59 Zolpidem Tartrate (Ambien Tab) 5 mg HS PRN PO 10/02/16 01:00 11/01/16 00:59 Vitamin B Complex (Vitamin B Complex) 1 tab QAM PO 10/02/16 09:00 11/01/16 08:59 10/05/16 08:37 1 TAB Ondansetron HCl (Zofran Inj) 4 mg Q6H PRN IV 10/02/16 01:00 11/01/16 00:59 10/04/16 06:21 4 MG Insulin Aspart (novoLOG ASPART) SLIDING SCALE If C... ACHS SC 10/02/16 06:30 11/01/16 06:59 10/05/16 09:09 2 UNITS Glucose (Glucose 40% Gel) UD PRN PO 10/02/16 01:00 11/01/16 00:59 Glucose (Glucose Chew Tab) 1 tabs UD PRN PO 10/02/16 01:00 11/01/16 00:59 Dextrose (Dextrose 50% 50ML Syringe) 50 ml UD PRN IV 10/02/16 01:00 11/01/16 00:59 Glucagon (Glucagon Inj) 1 mg UD PRN SQ 10/02/16 01:00 11/01/16 00:59 Guaifenesin (Organidin Nr Tab) 600 mg BID PO 10/02/16 09:00 11/01/16 08:59 10/05/16 08:35 600 MG Budesonide (Pulmicort Respules 0.5MG/ 2ML Neb Soln) 0.5 mg BIDR INH 10/02/16 08:00 11/01/16 07:59 10/05/16 07:16 0.5 MG Ipratropium [place] (Atrovent 0.02% 0.5MG/2.5ML Neb) 0.5 mg Q6R INH 10/02/16 03:00 11/01/16 02:59 10/05/16 07:16 0.5 MG Levalbuterol (Xopenex 1.25MG/ 0.5ML Neb) 1.25 mg Q6R INH 10/02/16 03:00 11/01/16 02:59 10/05/16 07:16 1.25 MG Ipratropium [place] (Atrovent 0.02% 0.5MG/2.5ML Neb) 0.5 mg Q2H PRN INH 10/02/16 01:45 11/01/16 01:44 Levalbuterol 1.25 mg 1.25 mg Q2H PRN INH 10/02/16 01:45 11/01/16 01:44 Piperacillin Sod/ Tazobactam Sod/ Dextrose (Zosyn Iv/D5 100ml) 120 ml @ 30 mls/hr Q12H IV 10/02/16 10:00 10/09/16 09:59 10/05/16 09:58 30 MLS/HR Piperacillin Sod/ Tazobactam Sod (Consult) 1 ea UD PRN N/A 10/02/16 02:30 11/01/16 02:29 Vancomycin HCl (Consult) 1 ea UD PRN N/A 10/02/16 02:30 11/01/16 02:29 Levofloxacin 1 ea 1 ea UD PRN N/A 10/02/16 02:30 11/01/16 02:29 Levofloxacin/Prmx (Levaquin / D5W/ Premixed D5W) 50 ml @ 50 mls/hr Q48H IV 10/04/16 04:00 10/11/16 03:59 10/04/16 04:00 50 MLS/HR Hydralazine HCl (HydrALAZINE INJ) 10 mg Q4H PRN IV. 10/02/16 13:15 11/01/16 13:14 10/02/16 14:34 10 MG Furosemide (Lasix Tab) 40 mg BID17 PO 10/02/16 17:00 11/01/16 16:59 10/05/16 08:33 40 MG Heparin Sodium (Porcine) (Heparin Sq 5000 Unit/0.5ml) 5,000 unit Q8 SQ 10/02/16 22:00 11/01/16 21:59 10/05/16 05:30 5,000 UNIT Pantoprazole Sodium (Protonix Tab) 40 mg QAM PO 10/03/16 09:00 11/02/16 08:59 10/05/16 08:37 40 MG Benzonatate (Tessalon Perles Cap) 100 mg TID PRN PO 10/04/16 13:30 11/03/16 13:29 10/05/16 08:48 100 MG Impression (1) ESRD on dialysis (2) Hypoxia (3) Anemia (4) Hx of right BKA (5) Hypertension (6) Diabetes mellitus (7) Pneumonia Umu is a 66-year-old female with 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 Umu was admitted to [facility] with fevers and shaking chills. She was at [facility] for PT and a new right lower extremity prosthesis. She had acute hypoxic respiratory failure on presentation to the hospital. Chest x-ray documenting pulmonary congestion and right lower lobe infiltrate. Blood cultures negative to date. She remains on vancomycin and Zosyn. 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 PMH also significant for HTN, DM and chronic diabetic ulcer, osteomyelitis and BKA. Recommendations -- HD TTS -- Electrolytes, volume status and blood pressure currently appropriate. -- Vanco/zosyn dosing per pharmacy. Repeat vanco level tomorrow AM prior to HD. Medications appropriate for renal function -- Continue furosemide 40 mg twice daily -- PT/OT -- Renal diet -- Continue Phoslo QAC -- Continue amlodipine -- Epogen 4000 QHD for anemia of CKD
--- NOTE | 2016-10-05 12:49 | Clinical Documentation Query ---
CLINICAL DOCUMENTATION QUERY 66 year old female who presents to the Emergency Room with complaints of a constant fever, rigors, weakness, and hypoxia. Query #1/2 The EMR states: "Acute CHF exacerbation" The medical record documentation is now expected to include definitive and explicit description of the patient's heart failure; vague terms such as "heart failure," ventricular dysfunction," and "CHF" may not fully capture the physician's intended level of severity. In your clinical opinion is this patient being managed for: (x ) Acute on chronic diastolic (preserved EF) heart failure treated with HD, Norvasc, telemetry, and daily weights. ( ) Other explanation of clinical findings (Please Explain) ( ) Unable to determine (Please Define) ( ) Need to Discuss ( ) Not Agree The medical record reflects the following clinical findings, treatment, and risk factors. Clinical Indicators: As above. Echo from 05/09/16 showed EF of 55-60%, left ventricular hypertrophy, and grade II diastolic dysfunction Treatment: HD, Norvasc, daily weights, I/O's, Risk Factors: Age, HTN, ESRD, and Sepsis Query #2/2 Please Document Present on Admission Status (POA) for - Unstageable pressure ulcer versus a traumatic wound to the second toe left foot. Otherwise is will be coded to a complication of care acquired at [facility] ( x ) POA ( ) Not POA Please clarify and document your clinical opinion in the progress notes and discharge summary. Terms such as "probable", "suspected", "likely", "questionable", "possible", or "still to be ruled out" are acceptable. IF IN AGREEMENT, YOU MUST DOCUMENT ABOVE DIAGNOSTIC STATEMENT IN DAILY PROGRESS NOTES AND DISCHARGE SUMMARY. This document is not part of the patient's record. Thank You, Amador Keller, RN [phone]
--- NOTE | 2016-10-05 13:12 | Family Medicine Progress Note ---
Progress Note Date of Service Oct 05, 2016. Subjective Pt evaluation today including: conversation w/ patient, conversation w/ family Shortness of breath has improved. No complaints No acute events. Constitutional: + chills, + fever Respiratory: No cough, No dyspnea on exertion, No shortness of breath, No sputum, No wheezing Cardiovascular: No chest pain Abdomen: No constipation, No diarrhea, No nausea, No pain, No vomiting Female : No dysuria, No urinary frequency Objective Physical Exam General Appearance: no apparent distress Eyes: PERRL, EOMI ENT: hearing grossly normal Neck: supple Respiratory/Chest: no respiratory distress, no accessory muscle use, + decreased breath sounds, + crackles Cardiovascular: regular rate, rhythm, no edema Abdomen: normal bowel sounds, non tender, soft Extremities: + pertinent finding (right BKA) Neurologic/Psychiatric: no motor/sensory deficits, oriented x 3, + depressed affect Assessment and Plan 66-year-old who presented in respiratory distress 2/2 ? pneumonia and acute CHF exacerbation. Sepsis 2/2 Pneumonia- resolving - repeat CXR with no infiltrate. ? sec to pneumonia. UA negative. blood cultures neg. - Transition IV Levaquin to PO q48h tomorrow and dc Vanc/Zosyn - infectious disease recommendations appreciated - did have a fever this morning Acute CHF exacerbation- improving - The patient has received 40 mg BID by mouth Lasix - Intake and output daily - Daily weights - AHA, low-sodium diet - Continue home dose of metoprolol - ROSSI inhibitor and ARB, contraindicated with ESRD End-stage renal disease - Nephrology consulted- will be dialyzed tomorrow - Gets dialysis Wednesday and Wednesday - Creatinine on arrival 4.2; better than baseline of 5-6 - Continue I/Os and daily weights - Continue medications per nephrology recommendations Left 2nd toe pressure ulcer - Appreciate wound care - no debridement at this time - avoid further pressure ulcers- keep in waffle boot History of SVT - Continue metoprolol, Amiodarone History of coronary artery disease - Continue clopidogrel - Continue metoprolol - Continue imdur Hypertension - Continue amlodipine and metoprolol Insulin-dependent Diabetes mellitus - Continue home regimen of Lantus (70 units qpm) - Aspart sliding scale Hypercholesterolemia - continue atorvastatin - Continue gemfibrozil Peripheral neuropathy - continue gabapentin - Continue Lyrica DVT prophylaxis - Heparin subcutaneous 3 times a day Code Status - Level I full code Disposition - transfer to med surg - PT/OT- with prosthesis preferably Reviewed: Pt Seen/Exam by Me History Resident Physician Supervision Note: I interviewed and examined the patient. Discussed with Dr. Evans and agree with findings and plan as documented in the note. Any exceptions or clarifications are listed here: Patient feeling better than when she came in, still coughing at times. Feels better with nebulizers. Seen by wound care today and no debridement necessary for left toe blister. Vitals reviewed Morbidly obese, no acute distress, nasal cannula in place Regular rate and rhythm, no murmurs gallops or rubs Diffuse but left greater than right expiratory wheezes, decreased breath sounds at the left base with crackles Abdomen-positive bowel sounds, soft, nontender, large completely reducible ventral hernia Extremities-right BKA, left leg with trace pitting edema 66-year-old female with complex medical history, here with sepsis and bronchitis versus pneumonia. She is improving but still with low-grade fever this morning and requiring oxygen, wheezes on exam. -Continue Levaquin to be renally dosed, continue nebulizers -Continue to wean off oxygen -Appreciate wound care consultation -For dialysis tomorrow, appreciate nephrology management -No need to be on Lyrica and gabapentin at the same time, review of external medical history shows she has not filled prescription for gabapentin and almost one year, but has been filling prescription for Lyrica for one year-DC gabapentin Documented By: Zakiya Chairez
--- NOTE | 2016-10-05 16:10 | Medical Consult ---
Consultation Date of Consultation: Oct 05, 2016. Attending Physician: Charla Monge M.D. Reason for Consultation: sepsis, fever History of Present Illness Patient is a 66 yo diabetic female known to me from previous ID consultation who presented to the ED from [facility] after a dialysis session where she was noted to have chills, shaking, weakness, and fever up to 103 F. The patient did not have SOB at that time but was noted to be hypoxic by EMS prior to admission. 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 She has been at [facility] for prosthetic training. She has recent history of right BKA following infection. The patient otherwise states that she had been feeling well until this episode. Upon admission, the patient had a normal WBC count of 6.41 and her WBC count has been stable. Procalcitonin was noted to be 2.17, and trended up slightly to 2.46. Lactic acid on admission was also elevated at 2.17. MRSA swab was negative, and blood cultures are showing no growth. CXR was reviewed by me and showed possible right base infiltrative process. Patient has had a fever multiple days since admission. She had low grade fever of 37.9 C this morning. She states that she overall feels slightly improved. 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 (17) Gangrene (18) GI (gastrointestinal bleed) (19) Gout (20) History of colon cancer (21) Hx of right BKA (22) Hypercholesterolemia (23) Hyperlipidemia (24) Hypertension (25) Hypertension (26) Hypoxia (27) Ischemic ulcer of foot (28) Kidney disease (29) Obesity (30) Paroxysmal supraventricular tachycardia (31) Peripheral artery disease (32) Pneumonia (33) Post-polypectomy bleeding (34) PVD (peripheral vascular disease) (35) SIRS (systemic inflammatory response syndrome) (36) Wound infection Surgical Problems: (1) Amputated toe of left foot (2) History of cataract extraction (3) History of colon resection (4) History of hysterectomy (5) History of tonsillectomy Family History FHx: musculoskeletal disease Noncontributory Social History Smoking Status: Never Smoker Smokeless Tobacco Use: No Alcohol Use: none Drug Use: none Marital Status: Housing Status: lives with significant other Occupation Status: retired Allergies Coded Allergies: No Known Allergies (Verified , 07/08/16) Home Medications Reported Home Medications Medications Dose Route/Sig Max Daily Dose Days Date Category Dose Instructions Senokot S (Senna/Docusate Sodium) 1 Tab Tab 1 Tab PO DAILY PRN 10/02/16 Reported Zolpidem Tartrate 5 Mg Tab 5 Mg PO HS PRN 10/02/16 Reported Ultram (Tramadol HCl) 50 Mg Tab 50 Mg PO Q4H PRN 10/02/16 Reported NEEDED FOR MODERATE TO SEVERE PAIN # 4-10 MAX = 400MG/24HRS Paricalcitol 2 Mcg/Ml Inj 1.5 Ml INJ 3XWK 10/02/16 Reported 3MCG INJECTION TO BE GIVEN BY DIALYSIS NURSE EVERY WEDNESDAY, WEDNESDAY, AND WEDNESDAY. Lantus Solostar (Insulin Glargine) 100 Unit/Ml Inj 70 Units SQ QPM 10/02/16 Reported Novolog Flexpen (Insulin Aspart) 100 Units/Ml Inj SQ ACHS 10/02/16 Reported PER SLIDING SCALE 70-130 = 0 UNITS 131-180 = 2 UNITS 181-240 = 4 UNITS 241-300 = 6 UNITS 301-350 = 8 UNITS 351-400 = 10 UNITS > 400 = 12 UNITS AND CALL Lasix (Furosemide) 20 Mg Tab 20 Mg PO BID 10/02/16 Reported Vitamin D 93826 Unit (Ergocalciferol) 50,000 Unit Cap 50,000 Units PO WK 10/02/16 Reported EVERY MAGALYS Docusate Sodium 100 Mg Cap 100 Mg PO BID 10/02/16 Reported Tylenol (Acetaminophen) 500 Mg Tab 1,000 Mg PO Q8 PRN 06/06/16 Reported MAX APAP =3GM/24HRS Lantus Solostar (Insulin Glargine) 100 Unit/Ml Inj 36 Units SC QAM 06/06/16 Reported Lopid (Gemfibrozil) 600 Mg Tab 600 Mg PO BID 06/06/16 Reported Aranesp Albumin Free (Darbepoetin) 60 Mcg/0.3 Ml Inj 60 Mcg SQ WK 06/06/16 Reported GIVE EVERY WEDNESDAY. Plavix (Clopidogrel Bisulfate) 75 Mg Tab 75 Mg PO QAM 06/06/16 Reported Cordarone (Amiodarone Hcl) 200 Mg Tab 200 Mg PO BID 06/06/16 Reported Metoprolol Tartrate 100 Mg Tab 100 Mg PO BID 10/01/15 Reported Imdur Ext Rel (Isosorbide Mononitrate) 60 Mg Ertab 60 Mg PO QAM 10/01/15 Reported Lyrica (Pregabalin) 25 Mg Cap 25 Mg PO BID 10/01/15 Reported Gabapentin 300 Mg Cap 300 Mg PO BID 10/01/15 Reported Norvasc (Amlodipine Besylate) 5 Mg Tab 5 Mg PO QAM 10/01/15 Reported Atorvastatin Calcium (Atorvastatin) 40 Mg Tab 40 Mg PO QAM 10/01/15 Reported Phoslo 667 Mg (Calcium Acetate) 667 Mg Cap 667 Mg PO TIDM 09/02/15 Reported Vitamin B Complex (B-Complex Vitamins) 1 Tab Tab 1 Tab PO QAM 09/02/15 Reported Current Inpatient Medications Current Inpatient Medications Medications (Trade) Dose Ordered Sig/Sheela Route Start Time Stop Time Status Last Admin Dose Admin Acetaminophen (Tylenol Tab) 1,000 mg Q8 PRN PO 10/02/16 01:00 11/01/16 00:59 10/05/16 08:46 1,000 MG Amiodarone HCl (Cordarone Tab) 200 mg BID PO 10/02/16 09:00 11/01/16 08:59 10/05/16 08:39 200 MG Amlodipine Besylate (Norvasc Tab) 5 mg QAM PO 10/02/16 09:00 11/01/16 08:59 10/05/16 08:36 5 MG Atorvastatin Calcium (Lipitor Tab) 40 mg QAM PO 10/02/16 09:00 11/01/16 08:59 10/05/16 08:36 40 MG Calcium Acetate (Phoslo Cap) 667 mg TIDM PO 10/02/16 08:00 11/01/16 07:59 10/05/16 12:25 667 MG Clopidogrel Bisulfate (plAVix TAB) 75 mg QAM PO 10/02/16 09:00 5/7/17 08:59 10/05/16 08:36 75 MG Docusate Sodium (coLACE CAP) 100 mg BID PO 10/02/16 09:00 11/01/16 08:59 10/05/16 08:38 100 MG Gabapentin (Neurontin Cap) 300 mg BID PO 10/02/16 09:00 11/01/16 08:59 10/05/16 08:36 300 MG Gemfibrozil (Lopid Tab) 600 mg BID PO 10/02/16 09:00 11/01/16 08:59 10/05/16 08:37 600 MG Insulin Glargine (Lantus Solostar Pen) 70 unit QPM SQ 10/02/16 21:00 11/01/16 20:59 10/04/16 21:09 70 UNIT Isosorbide Mononitrate (Imdur Ext Rel Tab) 60 mg QAM PO 10/02/16 09:00 11/01/16 08:59 10/05/16 08:40 60 MG Metoprolol Tartrate (Lopressor Tab) 100 mg BID PO 10/02/16 09:00 11/01/16 08:59 10/05/16 08:38 100 MG Pregabalin (Lyrica Cap) 25 mg BID PO 10/02/16 09:00 11/01/16 08:59 10/05/16 08:56 25 MG Tramadol HCl (Ultram Tab) 50 mg Q4H PRN PO 10/02/16 01:00 11/01/16 00:59 Zolpidem Tartrate (Ambien Tab) 5 mg HS PRN PO 10/02/16 01:00 11/01/16 00:59 Vitamin B Complex (Vitamin B Complex) 1 tab QAM PO 10/02/16 09:00 11/01/16 08:59 10/05/16 08:37 1 TAB Ondansetron HCl (Zofran Inj) 4 mg Q6H PRN IV 10/02/16 01:00 11/01/16 00:59 10/04/16 06:21 4 MG Insulin Aspart (novoLOG ASPART) SLIDING SCALE If C... ACHS SC 10/02/16 06:30 11/01/16 06:59 10/05/16 12:30 5 UNITS Glucose (Glucose 40% Gel) UD PRN PO 10/02/16 01:00 11/01/16 00:59 Glucose (Glucose Chew Tab) 1 tabs UD PRN PO 10/02/16 01:00 11/01/16 00:59 Dextrose (Dextrose 50% 50ML Syringe) 50 ml UD PRN IV 10/02/16 01:00 11/01/16 00:59 Glucagon (Glucagon Inj) 1 mg UD PRN SQ 10/02/16 01:00 11/01/16 00:59 Guaifenesin (Organidin Nr Tab) 600 mg BID PO 10/02/16 09:00 11/01/16 08:59 10/05/16 08:35 600 MG Budesonide (Pulmicort Respules 0.5MG/ 2ML Neb Soln) 0.5 mg BIDR INH 10/02/16 08:00 11/01/16 07:59 10/05/16 07:16 0.5 MG Ipratropium Cushing (Atrovent 0.02% 0.5MG/2.5ML Neb) 0.5 mg Q6R INH 10/02/16 03:00 11/01/16 02:59 10/05/16 14:16 0.5 MG Levalbuterol (Xopenex 1.25MG/ 0.5ML Neb) 1.25 mg Q6R INH 10/02/16 03:00 11/01/16 02:59 10/05/16 14:16 1.25 MG Ipratropium Cushing (Atrovent 0.02% 0.5MG/2.5ML Neb) 0.5 mg Q2H PRN INH 10/02/16 01:45 11/01/16 01:44 Levalbuterol 1.25 mg 1.25 mg Q2H PRN INH 10/02/16 01:45 11/01/16 01:44 Piperacillin Sod/ Tazobactam Sod/ Dextrose (Zosyn Iv/D5 100ml) 120 ml @ 30 mls/hr Q12H IV 10/02/16 10:00 10/09/16 09:59 10/05/16 09:58 30 MLS/HR Piperacillin Sod/ Tazobactam Sod (Consult) 1 ea UD PRN N/A 10/02/16 02:30 5/7/17 02:29 Vancomycin HCl (Consult) 1 ea UD PRN N/A 10/02/16 02:30 11/01/16 02:29 Levofloxacin 1 ea 1 ea UD PRN N/A 10/02/16 02:30 11/01/16 02:29 Levofloxacin/Prmx (Levaquin / D5W/ Premixed D5W) 50 ml @ 50 mls/hr Q48H IV 10/04/16 04:00 10/11/16 03:59 10/04/16 04:00 50 MLS/HR Hydralazine HCl (HydrALAZINE INJ) 10 mg Q4H PRN IV. 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) Eyes: No worsening of vision ENT: No hearing loss Respiratory: + cough, No shortness of breath Cardiovascular: No chest pain Abdomen: No diarrhea, No nausea, No pain, No vomiting Musculoskeletal: + problem reported (right BKA with prosthetic in place), No joint pain Genitourinary - Female: No dysuria, No urinary frequency Integumentary: + new/changing skin lesions (small blister on left toe), No itch , No rash Physical Exam Date Time Temp Pulse Resp B/P Pulse Ox O2 Delivery O2 Flow Rate FiO2 10/05/16 15:15 93 10/05/16 15:01 36.6 63 20 97/59 90 Nasal Cannula 3.0 10/05/16 14:17 90 16 89 Nasal Cannula 4.0 10/05/16 12:00 92 Nasal Cannula 4.0 10/05/16 11:40 37.3 62 18 91/44 93 Nasal Cannula 4.0 10/05/16 10:45 91 Nasal Cannula 4.0 10/05/16 10:19 36.9 10/05/16 08:30 92 Nasal Cannula 4.0 10/05/16 07:48 37.9 76 18 149/67 86 Nasal Cannula 3.0 10/05/16 07:16 76 16 86 Nasal Cannula 3.0 10/05/16 03:37 36.9 69 20 118/67 93 Nasal Cannula 3.0 10/05/16 02:13 66 16 90 Nasal Cannula 3.0 10/05/16 00:20 Nasal Cannula 3.0 10/04/16 23:42 37.5 74 18 102/51 92 Nasal Cannula 3.0 10/04/16 20:10 37.6 81 18 145/64 93 Nasal Cannula 3.0 10/04/16 20:10 Nasal Cannula 10/04/16 19:36 82 16 92 Nasal Cannula 5.0 General Appearance: WD/WN, no apparent distress Head: normocephalic, atraumatic Eyes: normal inspection, sclerae normal ENT: hearing grossly normal Neck: supple, trachea midline Respiratory/Chest: no respiratory distress, no accessory muscle use, + crackles (heard throughout B/L lungs, mild, R>L) Cardiovascular: regular rate, rhythm Abdomen/GI: normal bowel sounds, non tender Back: normal inspection Extremities/Musculoskelatal: + pertinent finding (right BKA with prosthetic in place) Neurologic/Psych: alert, normal mood/affect Skin: normal color, warm/dry, no rash Laboratory Results Item Value Date Time MRSA DNA Surveillance Screen - Final Complete 10/02/16 1137 Nasal Specimen Negative for MRSA by DNA Probe Blood Culture - Preliminary Resulted 10/01/16 2333 Blood NO GROWTH TO DATE. Blood Culture - Preliminary Resulted 10/01/16 2330 Blood NO GROWTH TO DATE. [~ rep ct add3]] CHEST ONE VIEW PORTABLE CLINICAL HISTORY: fever dyspnea COMPARISON STUDY: 06/07/2016 FINDINGS: Persistent findings of mild congestive failure. Bony vasculature is prominent. Heart is moderately enlarged. Chronic elevation right hemidiaphragm. Possible superimposed infiltrate medial right base IMPRESSION: Findings of congestive failure, possibly with a superimposed medial right base infiltrative process. Last 24 Hours Test 10/04/16 16:32 10/04/16 20:39 10/05/16 07:31 10/05/16 07:57 Bedside Glucose 99 mg/dl 153 mg/dl 73 mg/dl Sodium Level 133 mmol/L Potassium Level 4.8 mmol/L Chloride Level 94 mmol/L Carbon Dioxide Level 27 mmol/L Anion Gap 12.0 mmol/L Blood Urea Nitrogen 42 mg/dl Creatinine 7.50 mg/dl Est Creatinine Clear Calc Drug Dose 8.7 ml/min Estimated GFR () 5.9 Estimated GFR (Non- 5.1 BUN/Creatinine Ratio 5.6 Random Glucose 98 mg/dl Calcium Level 8.5 mg/dl Random Vancomycin Level 26.7 mcg/ml Test 10/05/16 07:58 10/05/16 11:07 Bedside Glucose 86 mg/dl 94 mg/dl Assessment & Plan Diabetic female with recent history of right BKA and now probable RLL pneumonia. She is currently on IV Vancomycin, Levaquin, and Zosyn. MRSA nasal swab was negative, therefore will D/C Vancomycin. Feel also that this patient is low risk for aspiration pneumonia at this time, so will D/C Zosyn as well. Continue Levaquin, but will transition to PO. Recommend completing 10 days of therapy. We will continue to follow. Case reviewed and agree with above assessment.
--- NOTE | 2016-10-05 17:53 | CONSULTATION REPORT ---
DATE OF CONSULTATION: 10/05/2016 CHIEF COMPLAINT: Blood blister formation second toe left foot. HISTORY OF PRESENT ILLNESS: The patient states that she noticed a small blood blister type formation on the tip of her second toe approximately 3-4 days ago. The patient denies any known traumatic event. The patient denies any pain in this area. The patient denies any bleeding or discharge. The patient denies any redness or swelling of the foot region. The patient was recently admitted to the hospital 4 days ago for evaluation and treatment of pneumonia. The patient states at the current time, she is having improved breathing with no substantial productive cough. The patient denies any fevers, chills or night sweats. Past medical history, surgical history, and medications are essentially unchanged from patient's prior visits to the wound clinic. The patient was recently discharged from our service 5 weeks ago for ongoing issues of dehiscence from a right BK amputation. The patient was also treated over the course of many months for healing of a post-metatarsal amputation of the left foot. PHYSICAL EXAMINATION: VITAL SIGNS: Reviewed and found to be unremarkable. The patient is afebrile. GENERAL: The patient is currently lying in bed in no apparent distress. The patient is alert, cooperative. HEENT: Pupils equal and reactive to light. Sclerae clear. NECK: Supple. CHEST: Heart and lungs clear to auscultation. EXTREMITIES: Reveal the presence of a very small blackened area to the distal tip of the second toe of the left foot. There is no fluctuance present and no periwound erythema, no active drainage present. No tenderness to palpation in the region. IMPRESSION: Unstageable pressure ulcer versus a traumatic wound to the second toe left foot. PLAN: At this time, no debridement is indicated. The patient will be placed in a waffle boot as a precaution for further development of any pressure ulcerations, will continue to monitor this site on the second toe.
[2016-10-05] MEDS: INSULIN GLARGINE SOLOSTAR 100 UNITS/ML 3 ML PEN SQ SCH (21:33)
[2016-10-06] VITALS (28 sets, daily range): BP systolic 89–145; BP diastolic 37–71; PULSE 59–90; TEMP 36.7–38.3; O2SAT 87–94; Ht 165.1 cm; Wt 102.3 kg
[2016-10-06] MEDS: LEVALBUTEROL 1.25MG/0.5ML NEB INH SCH (01:50)
[2016-10-06] MEDS: IPRATROPIUM BROMIDE NEB SOLN 0.02% 2.5 ML VIAL INH SCH (01:50)
--- NOTE | 2016-10-06 04:52 | Clinical Documentation Query ---
CLINICAL DOCUMENTATION QUERY 66 year old female who presents to the Emergency Room with complaints of a constant fever, rigors, weakness, and hypoxia. Query #1/2 The EMR states: "Acute CHF exacerbation" The medical record documentation is now expected to include definitive and explicit description of the patient's heart failure; vague terms such as "heart failure," ventricular dysfunction," and "CHF" may not fully capture the physician's intended level of severity. In your clinical opinion is this patient being managed for: ( ) Acute on chronic diastolic (preserved EF) heart failure treated with HD, Norvasc, telemetry, and daily weights. ( ) Other explanation of clinical findings (Please Explain) ( ) Unable to determine (Please Define) ( ) Need to Discuss ( ) Not Agree The medical record reflects the following clinical findings, treatment, and risk factors. Clinical Indicators: As above. Echo from 05/09/16 showed EF of 55-60%, left ventricular hypertrophy, and grade II diastolic dysfunction Treatment: HD, Norvasc, daily weights, I/O's, Risk Factors: Age, HTN, ESRD, and Sepsis Query #2/2 Please Document Present on Admission Status for - Unstageable pressure ulcer versus a traumatic wound to the second toe left foot otherwise it will be coded to a complication of care acquired at [facility]. ( ) POA ( ) Facility acquired since admission (complication of care and PSI) Please clarify and document your clinical opinion in the progress notes and discharge summary. Terms such as "probable", "suspected", "likely", "questionable", "possible", or "still to be ruled out" are acceptable. IF IN AGREEMENT, YOU MUST DOCUMENT ABOVE DIAGNOSTIC STATEMENT IN DAILY PROGRESS NOTES AND DISCHARGE SUMMARY. This document is not part of the patient's record. Thank You, Amador Keller, MAYA [phone]
[2016-10-06] MEDS: HEPARIN SOD 5000 UNIT/0.5 ML CARP SQ SCH ×3 (05:26→21:26)
[2016-10-06 06:58] LABS: HEMATOCRIT 24.7 % (37-47); MEAN CELL VOLUME 92.5 fL (80-100); MEAN CORPUSCULAR HEMOGLOBIN 31.5 pg (25-34); MEAN PLATELET VOLUME 9.6 fL (7.4-10.4); PLATELET COUNT 164 K/uL (130-400); RED BLOOD COUNT 2.67 M/uL (4.2-5.4)
[2016-10-06] MEDS: BUDESONIDE 0.5 MG/2 ML VIAL (PULMICORT) INH SCH ×2 (07:24→20:04)
[2016-10-06 07:34] LABS: BUN/CREATININE RATIO 5.8 (10-20); CREATININE 9.5 mg/dl (0.60-1.20); FERRITIN 1876.1 ng/ml (8.0-388.0); POTASSIUM 4.9 mmol/L (3.5-5.1)
[2016-10-06] MEDS: INSULIN ASPART 100 UNITS/ML 3 ML PEN SC SCH ×4 (07:42→21:00)
[2016-10-06] MEDS: DOCUSATE SODIUM 100 MG CAP PO SCH ×2 (07:59→21:24)
[2016-10-06] MEDS: CLOPIDOGREL BISULFATE 75 MG TAB PO SCH (07:59)
[2016-10-06] MEDS: ATORVASTATIN 40 MG TAB PO SCH (07:59)
[2016-10-06] MEDS: CALCIUM ACETATE 667MG GELCAP PO SCH ×3 (07:59→21:24)
[2016-10-06] MEDS: FUROSEMIDE 40 MG TAB PO SCH ×2 (08:00→21:23)
[2016-10-06] MEDS: METOPROLOL TARTRATE 100 MG TAB PO SCH ×2 (08:00→21:25)
[2016-10-06] MEDS: AMIODARONE 200 MG TAB PO SCH ×2 (08:00→21:24)
[2016-10-06] MEDS: LEVOFLOXACIN 250 MG TAB PO SCH (08:00)
[2016-10-06] MEDS ORDERED: HEPARIN SOD (PORCINE) 1000 UNIT/ML 10 ML VIAL IV SCH ×2 (08:00)
[2016-10-06] MEDS: VITAMIN B COMPLEX TAB PO SCH (08:01)
[2016-10-06] MEDS: PANTOprazole SOD 40 MG TAB PO SCH (08:01)
[2016-10-06] MEDS: GEMFIBROZIL 600 MG TAB PO SCH ×2 (08:02→21:24)
[2016-10-06] MEDS: AMLODIPINE BESYLATE 5 MG TAB PO SCH (08:02)
[2016-10-06] MEDS: ISOSORBIDE MONONITRATE 60 MG TABCR PO SCH (08:02)
[2016-10-06] MEDS: GUAIFENESIN 200 MG TAB PO SCH ×2 (08:02→21:30)
[2016-10-06] MEDS: PREGABALIN 25MG CAP PO SCH ×2 (08:07→21:35)
[2016-10-06] MEDS ORDERED: EPOETIN ALFA 10,000 UNITS/ML VIAL IV SCH (08:45)
[2016-10-06] MEDS: ACETAMINOPHEN 500 MG TAB PO PRN (10:25)
--- NOTE | 2016-10-06 11:47 | Nephrology Progress Note ---
Nephrology Progress Note Date of Service Oct 06, 2016. Chief Complaint ESRD Subjective No acute events overnight. No complaints this morning. No fevers or chills. Cough slowly improving. Breathing comfortably. Denies pain. Review of Systems A complete review of systems was performed. Pertinent positives are noted above. All other systems are negative. Vital Signs Last 8 Hrs Date Time Temp Pulse Resp B/P Pulse Ox O2 Delivery O2 Flow Rate FiO2 10/06/16 11:02 37.2 83 20 129/67 91 Nasal Cannula 4.0 10/06/16 10:16 38.3 10/06/16 08:04 86 20 90 Nasal Cannula 4.0 10/06/16 08:00 Nasal Cannula 4.0 10/06/16 07:45 37.2 90 20 131/68 88 Nasal Cannula 4.0 10/06/16 04:50 37.1 89 20 130/71 87 Nasal Cannula 4.0 10/06/16 04:00 Nasal Cannula 4.0 I & O 24-Hour Column 10/06/16 08:00 Intake Total 960 ml Balance 960 ml Last Recorded Weight Weight (Kilograms): 105.400 Physical Exam General Appearance: WD/WN, no apparent distress Head: normocephalic, atraumatic Eyes: normal inspection, sclerae normal ENT: normal ENT inspection, pharynx normal Neck: supple, no JVD Respiratory/Chest: lungs clear, no respiratory distress, no accessory muscle use Cardiovascular: regular rate, rhythm, no gallop, no murmur Abdomen/GI: non tender, soft Extremities/Musculoskelatal: normal inspection, no pedal edema, + pertinent finding (BKA; AVF with thrill and bruit) Neurologic/Psych: alert, oriented x 3 Family History FHx: musculoskeletal disease Social History Smoking Status: Unknown if ever smoked Smokeless Tobacco Use: No Alcohol Use: none Drug Use: none Marital Status: Housing Status: lives with family Occupation: retired Laboratory Results Past 24 Hours 10/06/16 06:20 10/06/16 06:20 Test 10/05/16 17:03 10/05/16 18:48 10/05/16 20:27 10/06/16 06:20 Bedside Glucose 143 mg/dl (70-90) 154 mg/dl (70-90) 161 mg/dl (70-90) Red Blood Count 2.67 M/uL (4.2-5.4) Mean Corpuscular Volume 92.5 fL (80-100) Mean Corpuscular Hemoglobin 31.5 pg (25-34) Mean Corpuscular Hemoglobin Concent 34.0 g/dl (32-36) RDW Standard Deviation 54.9 fL (36.4-46.3) RDW Coefficient of Variation 16.1 % (11.5-14.5) Mean Platelet Volume 9.6 fL (7.4-10.4) Anion Gap 14.0 mmol/L (3-11) Est Creatinine Clear Calc Drug Dose 6.9 ml/min Estimated GFR () 4.4 Estimated GFR (Non- 3.8 BUN/Creatinine Ratio 5.8 (10-20) Calcium Level 8.0 mg/dl (8.5-10.1) Iron Level 33 mcg/dl (35-150) Total Iron Binding Capacity 169 mcg/dl (250-450) Transferrin 144 mg/dl (200-360) Transferrin % Saturation 16 % (15-50) Ferritin 1876.1 ng/ml (8.0-388.0) Random Vancomycin Level 25.9 mcg/ml Test 10/06/16 07:28 10/06/16 07:48 10/06/16 07:51 10/06/16 11:10 Bedside Glucose 66 mg/dl (70-90) 70 mg/dl (70-90) 72 mg/dl (70-90) 92 mg/dl (70-90) Allergies Coded Allergies: No Known Allergies (Verified , 07/08/16) Medications Current Inpatient Medications Medications (Trade) Dose Ordered Sig/Sheela Route Start Time Stop Time Status Last Admin Dose Admin Acetaminophen (Tylenol Tab) 1,000 mg Q8 PRN PO 10/02/16 01:00 11/01/16 00:59 10/06/16 10:25 1,000 MG Amiodarone HCl (Cordarone Tab) 200 mg BID PO 10/02/16 09:00 11/01/16 08:59 10/06/16 08:00 200 MG Amlodipine Besylate (Norvasc Tab) 5 mg QAM PO 10/02/16 09:00 11/01/16 08:59 10/06/16 08:02 5 MG Atorvastatin Calcium (Lipitor Tab) 40 mg QAM PO 10/02/16 09:00 11/01/16 08:59 10/06/16 07:59 40 MG Calcium Acetate (Phoslo Cap) 667 mg TIDM PO 10/02/16 08:00 11/01/16 07:59 10/06/16 07:59 667 MG Clopidogrel Bisulfate (plAVix TAB) 75 mg QAM PO 10/02/16 09:00 11/01/16 08:59 10/06/16 07:59 75 MG Docusate Sodium (coLACE CAP) 100 mg BID PO 10/02/16 09:00 11/01/16 08:59 10/06/16 07:59 100 MG Gemfibrozil (Lopid Tab) 600 mg BID PO 10/02/16 09:00 11/01/16 08:59 10/06/16 08:02 600 MG Insulin Glargine (Lantus Solostar Pen) 70 unit QPM SQ 10/02/16 21:00 11/01/16 20:59 10/05/16 21:33 70 UNIT Isosorbide Mononitrate (Imdur Ext Rel Tab) 60 mg QAM PO 10/02/16 09:00 11/01/16 08:59 10/06/16 08:02 60 MG Metoprolol Tartrate (Lopressor Tab) 100 mg BID PO 10/02/16 09:00 11/01/16 08:59 10/06/16 08:00 100 MG Pregabalin (Lyrica Cap) 25 mg BID PO 10/02/16 09:00 11/01/16 08:59 10/06/16 08:07 25 MG Tramadol HCl (Ultram Tab) 50 mg Q4H PRN PO 10/02/16 01:00 11/01/16 00:59 Zolpidem Tartrate (Ambien Tab) 5 mg HS PRN PO 10/02/16 01:00 11/01/16 00:59 Vitamin B Complex (Vitamin B Complex) 1 tab QAM PO 10/02/16 09:00 11/01/16 08:59 10/06/16 08:01 1 TAB Ondansetron HCl (Zofran Inj) 4 mg Q6H PRN IV 10/02/16 01:00 11/01/16 00:59 10/04/16 06:21 4 MG Insulin Aspart (novoLOG ASPART) SLIDING SCALE If C... ACHS SC 10/02/16 06:30 11/01/16 06:59 10/05/16 21:34 1 UNITS Glucose (Glucose 40% Gel) UD PRN PO 10/02/16 01:00 11/01/16 00:59 Glucose (Glucose Chew Tab) 1 tabs UD PRN PO 10/02/16 01:00 11/01/16 00:59 Dextrose (Dextrose 50% 50ML Syringe) 50 ml UD PRN IV 10/02/16 01:00 11/01/16 00:59 Glucagon (Glucagon Inj) 1 mg UD PRN SQ 10/02/16 01:00 11/01/16 00:59 Guaifenesin (Organidin Nr Tab) 600 mg BID PO 10/02/16 09:00 11/01/16 08:59 10/06/16 08:02 600 MG Budesonide (Pulmicort Respules 0.5MG/ 2ML Neb Soln) 0.5 mg BIDR INH 10/02/16 08:00 11/01/16 07:59 10/06/16 07:24 0.5 MG Ipratropium [place] (Atrovent 0.02% 0.5MG/2.5ML Neb) 0.5 mg Q6R INH 10/02/16 03:00 11/01/16 02:59 10/06/16 01:50 0.5 MG Levalbuterol (Xopenex 1.25MG/ 0.5ML Neb) 1.25 mg Q6R INH 10/02/16 03:00 11/01/16 02:59 10/06/16 01:50 1.25 MG Ipratropium [place] (Atrovent 0.02% 0.5MG/2.5ML Neb) 0.5 mg Q2H PRN INH 10/02/16 01:45 11/01/16 01:44 Levalbuterol (Xopenex 1.25MG/ 0.5ML Neb) 1.25 mg Q2H PRN INH 10/02/16 01:45 11/01/16 01:44 Levofloxacin (Consult) 1 ea UD PRN N/A 10/02/16 02:30 11/01/16 02:29 Hydralazine HCl (HydrALAZINE INJ) 10 mg Q4H PRN IV. 10/02/16 13:15 11/01/16 13:14 10/02/16 14:34 10 MG Furosemide (Lasix Tab) 40 mg BID17 PO 10/02/16 17:00 11/01/16 16:59 10/06/16 08:00 40 MG Heparin Sodium (Porcine) (Heparin Sq 5000 Unit/0.5ml) 5,000 unit Q8 SQ 10/02/16 22:00 11/01/16 21:59 10/06/16 05:26 5,000 UNIT Pantoprazole Sodium (Protonix Tab) 40 mg QAM PO 10/03/16 09:00 11/02/16 08:59 10/06/16 08:01 40 MG Benzonatate (Tessalon Perles Cap) 100 mg TID PRN PO 10/04/16 13:30 11/03/16 13:29 10/05/16 08:48 100 MG Levofloxacin (Levaquin Tab) 250 mg Q48H PO 10/06/16 09:00 10/08/16 23:59 10/06/16 08:00 250 MG Heparin Sodium (Porcine) (Heparin Iv Bolus) 2,000 unit 0800 IV 10/06/16 08:00 10/06/16 18:00 Heparin Sodium (Porcine) (Heparin Iv Bolus) 1,000 unit Q1H IV 10/06/16 08:00 10/06/16 18:00 Epoetin Jan (Procrit Inj) 10,000 units TuThSa@1600 SQ 10/06/16 16:00 11/05/16 15:59 Impression (1) ESRD on dialysis (2) Hypoxia (3) Anemia (4) Hx of right BKA (5) Hypertension (6) Diabetes mellitus (7) Pneumonia Umu is a 66-year-old female with 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 Umu was admitted to [facility] with fevers and shaking chills. She was at [facility] for PT and a new right lower extremity prosthesis. She had acute hypoxic respiratory failure on presentation to the hospital. Chest x-ray documenting pulmonary congestion and right lower lobe infiltrate. Blood cultures negative to date. She remains on vancomycin and Zosyn. Recently had right BKA, and had been at [facility] rehab. PMH also significant for HTN, DM and chronic diabetic ulcer, osteomyelitis and BKA. Recommendations -- HD TTS; orders entered for hemodialysis today -- UF [place] 3-4 kg [place] tolerated [place] [address] [place] -- Vanco/zosyn dosing per pharmacy. Repeat vanco level tomorrow AM prior to HD. Medications appropriate for renal function -- Continue furosemide 40 mg twice daily -- Renal diet -- Continue Phoslo QAC
--- NOTE | 2016-10-06 11:51 | Infectious Disease Progress Nt ---
Progress Note Date of Service Oct 06, 2016. Subjective Pt evaluation today including: conversation w/ patient, conversation w/ family (), physical exam, chart review, lab review, review of studies, review of inpatient medication list Patient is feeling slightly improve today. She continues to have a lot of nasal drainage and sinus pressure. She states that she has had yellow/bloody drainage from her nose. She is not expectorating any sputum, but she continues to have a cough. She has a fever this morning of 38 C. She does not complain of any pain. WBC count stable at 7.30. Blood cultures continue to show no growth. All Other Systems: Reviewed and Negative Medications Current Inpatient Medications Medications (Trade) Dose Ordered Sig/Sheela Route Start Time Stop Time Status Last Admin Dose Admin Acetaminophen (Tylenol Tab) 1,000 mg Q8 PRN PO 10/02/16 01:00 11/01/16 00:59 10/06/16 10:25 1,000 MG Amiodarone HCl (Cordarone Tab) 200 mg BID PO 10/02/16 09:00 11/01/16 08:59 10/06/16 08:00 200 MG Amlodipine Besylate (Norvasc Tab) 5 mg QAM PO 10/02/16 09:00 11/01/16 08:59 10/06/16 08:02 5 MG Atorvastatin Calcium (Lipitor Tab) 40 mg QAM PO 10/02/16 09:00 11/01/16 08:59 10/06/16 07:59 40 MG Calcium Acetate (Phoslo Cap) 667 mg TIDM PO 10/02/16 08:00 11/01/16 07:59 10/06/16 07:59 667 MG Clopidogrel Bisulfate (plAVix TAB) 75 mg QAM PO 10/02/16 09:00 11/01/16 08:59 10/06/16 07:59 75 MG Docusate Sodium (coLACE CAP) 100 mg BID PO 10/02/16 09:00 11/01/16 08:59 10/06/16 07:59 100 MG Gemfibrozil (Lopid Tab) 600 mg BID PO 10/02/16 09:00 11/01/16 08:59 10/06/16 08:02 600 MG Insulin Glargine (Lantus Solostar Pen) 70 unit QPM SQ 10/02/16 21:00 11/01/16 20:59 10/05/16 21:33 70 UNIT Isosorbide Mononitrate (Imdur Ext Rel Tab) 60 mg QAM PO 10/02/16 09:00 11/01/16 08:59 10/06/16 08:02 60 MG Metoprolol Tartrate (Lopressor Tab) 100 mg BID PO 10/02/16 09:00 11/01/16 08:59 10/06/16 08:00 100 MG Pregabalin (Lyrica Cap) 25 mg BID PO 10/02/16 09:00 11/01/16 08:59 10/06/16 08:07 25 MG Tramadol HCl (Ultram Tab) 50 mg Q4H PRN PO 10/02/16 01:00 11/01/16 00:59 Zolpidem Tartrate (Ambien Tab) 5 mg HS PRN PO 10/02/16 01:00 11/01/16 00:59 Vitamin B Complex (Vitamin B Complex) 1 tab QAM PO 10/02/16 09:00 11/01/16 08:59 10/06/16 08:01 1 TAB Ondansetron HCl (Zofran Inj) 4 mg Q6H PRN IV 10/02/16 01:00 11/01/16 00:59 10/04/16 06:21 4 MG Insulin Aspart (novoLOG ASPART) SLIDING SCALE If C... ACHS SC 10/02/16 06:30 11/01/16 06:59 10/05/16 21:34 1 UNITS Glucose (Glucose 40% Gel) UD PRN PO 10/02/16 01:00 11/01/16 00:59 Glucose (Glucose Chew Tab) 1 tabs UD PRN PO 10/02/16 01:00 11/01/16 00:59 Dextrose (Dextrose 50% 50ML Syringe) 50 ml UD PRN IV 10/02/16 01:00 11/01/16 00:59 Glucagon (Glucagon Inj) 1 mg UD PRN SQ 10/02/16 01:00 11/01/16 00:59 Guaifenesin (Organidin Nr Tab) 600 mg BID PO 10/02/16 09:00 11/01/16 08:59 10/06/16 08:02 600 MG Budesonide (Pulmicort Respules 0.5MG/ 2ML Neb Soln) 0.5 mg BIDR INH 10/02/16 08:00 11/01/16 07:59 10/06/16 07:24 0.5 MG Ipratropium [place] (Atrovent 0.02% 0.5MG/2.5ML Neb) 0.5 mg Q6R INH 10/02/16 03:00 11/01/16 02:59 10/06/16 01:50 0.5 MG Levalbuterol (Xopenex 1.25MG/ 0.5ML Neb) 1.25 mg Q6R INH 10/02/16 03:00 11/01/16 02:59 10/06/16 01:50 1.25 MG Ipratropium [place] (Atrovent 0.02% 0.5MG/2.5ML Neb) 0.5 mg Q2H PRN INH 10/02/16 01:45 11/01/16 01:44 Levalbuterol (Xopenex 1.25MG/ 0.5ML Neb) 1.25 mg Q2H PRN INH 10/02/16 01:45 11/01/16 01:44 Levofloxacin (Consult) 1 ea UD PRN N/A 10/02/16 02:30 11/01/16 02:29 Hydralazine HCl (HydrALAZINE INJ) 10 mg Q4H PRN IV. 10/02/16 13:15 11/01/16 13:14 10/02/16 14:34 10 MG Furosemide (Lasix Tab) 40 mg BID17 PO 10/02/16 17:00 11/01/16 16:59 10/06/16 08:00 40 MG Heparin Sodium (Porcine) (Heparin Sq 5000 Unit/0.5ml) 5,000 unit Q8 SQ 10/02/16 22:00 11/01/16 21:59 10/06/16 05:26 5,000 UNIT Pantoprazole Sodium (Protonix Tab) 40 mg QAM PO 10/03/16 09:00 11/02/16 08:59 10/06/16 08:01 40 MG Benzonatate (Tessalon Perles Cap) 100 mg TID PRN PO 10/04/16 13:30 11/03/16 13:29 10/05/16 08:48 100 MG Levofloxacin (Levaquin Tab) 250 mg Q48H PO 10/06/16 09:00 10/08/16 23:59 10/06/16 08:00 250 MG Heparin Sodium (Porcine) (Heparin Iv Bolus) 2,000 unit 0800 IV 10/06/16 08:00 10/06/16 18:00 Heparin Sodium (Porcine) (Heparin Iv Bolus) 1,000 unit Q1H IV 10/06/16 08:00 10/06/16 18:00 Epoetin Jan (Procrit Inj) 10,000 units TuThSa@1600 IV. 10/06/16 16:00 11/05/16 15:59 UNV Objective Vital Signs Date Time Temp Pulse Resp B/P Pulse Ox O2 Delivery O2 Flow Rate FiO2 10/06/16 11:02 37.2 83 20 129/67 91 Nasal Cannula 4.0 10/06/16 10:16 38.3 10/06/16 08:04 86 20 90 Nasal Cannula 4.0 10/06/16 08:00 Nasal Cannula 4.0 10/06/16 07:45 37.2 90 20 131/68 88 Nasal Cannula 4.0 10/06/16 04:50 37.1 89 20 130/71 87 Nasal Cannula 4.0 10/06/16 04:00 Nasal Cannula 4.0 10/06/16 01:50 87 16 92 Nasal Cannula 4.0 10/06/16 00:14 37.0 85 18 145/70 90 Nasal Cannula 4.0 10/06/16 00:00 Nasal Cannula 4.0 10/05/16 20:18 36.8 77 18 117/65 94 Nasal Cannula 3.0 10/05/16 20:00 Nasal Cannula 4.0 10/05/16 19:10 90 18 94 Nasal Cannula 4.0 10/05/16 16:00 Nasal Cannula 4.0 10/05/16 15:15 93 10/05/16 15:01 36.6 63 20 97/59 90 Nasal Cannula 3.0 10/05/16 14:17 90 16 89 Nasal Cannula 4.0 10/05/16 12:00 92 Nasal Cannula 4.0 Physical Exam General Appearance: no apparent distress, + obese Eyes: normal inspection, sclerae normal ENT: hearing grossly normal, + pertinent finding (mild tenderness over the frontal sinuses) Neck: supple Respiratory/Chest: chest non-tender, no respiratory distress, no accessory muscle use, + decreased breath sounds Cardiovascular: regular rate, rhythm Abdomen: normal bowel sounds Extremities: + pertinent finding (right BKA) Neurologic/Psychiatric: alert, normal mood/affect Skin: normal color, warm/dry, no rash Laboratory Results Item Value Date Time Blood Culture - Preliminary Resulted 10/01/163 Blood NO GROWTH TO DATE. Blood Culture - Preliminary Resulted 10/01/160 Blood NO GROWTH TO DATE. Last 24 Hours Test 10/05/16 17:03 10/05/16 18:48 10/05/16 20:27 10/06/16 06:20 Bedside Glucose 143 mg/dl 154 mg/dl 161 mg/dl White Blood Count 7.30 K/uL Red Blood Count 2.67 M/uL Hemoglobin 8.4 g/dL Hematocrit 24.7 % Mean Corpuscular Volume 92.5 fL Mean Corpuscular Hemoglobin 31.5 pg Mean Corpuscular Hemoglobin Concent 34.0 g/dl RDW Standard Deviation 54.9 fL RDW Coefficient of Variation 16.1 % Platelet Count 164 K/uL Mean Platelet Volume 9.6 fL Sodium Level 131 mmol/L Potassium Level 4.9 mmol/L Chloride Level 92 mmol/L Carbon Dioxide Level 25 mmol/L Anion Gap 14.0 mmol/L Blood Urea Nitrogen 55 mg/dl Creatinine 9.50 mg/dl Est Creatinine Clear Calc Drug Dose 6.9 ml/min Estimated GFR () 4.4 Estimated GFR (Non- 3.8 BUN/Creatinine Ratio 5.8 Random Glucose 72 mg/dl Calcium Level 8.0 mg/dl Iron Level 33 mcg/dl Total Iron Binding Capacity 169 mcg/dl Transferrin 144 mg/dl Transferrin % Saturation 16 % Ferritin 1876.1 ng/ml Random Vancomycin Level 25.9 mcg/ml Test 10/06/16 07:28 10/06/16 07:48 10/06/16 07:51 10/06/16 11:10 Bedside Glucose 66 mg/dl 70 mg/dl 72 mg/dl 92 mg/dl Assessment and Plan Diabetic female with recent history of right BKA and now probable RLL pneumonia. She is currently on PO Levaquin. MRSA nasal swab was negative. She continues to have fever and sinus drainage. Will add PO Augmentin for concerns of possible sinus infection. Will also repeat CXR today. We will continue to follow. Case reviewed and agree with above assessment.
[2016-10-06] MEDS ORDERED: ALBUT/IPRATROP 3MG/0.5MG NEB 3 ML VIAL INH PRN (13:15)
[2016-10-06 13:20] LABS: HEMATOCRIT 23.8 % (37-47)
--- NOTE | 2016-10-06 13:32 | DIAGNOSTIC IMAGING REPORT ---
CHEST ONE VIEW PORTABLE CLINICAL HISTORY: Limited mobility dyspnea COMPARISON STUDY: 10/03/2016 FINDINGS: Developing right infrahilar infiltrate. Mild congestive failure. Potential atelectatic change left base. IMPRESSION: Developing atelectatic change left base with a right infrahilar parenchymal infiltrate. Close follow-up to resolution is suggested. Electronically signed by: Cornell Malhotra M.D. 10/06/2016 1:29 PM Dictated Date/Time: 10/06/2016 1:28 PM
--- NOTE | 2016-10-06 13:51 | Family Medicine Progress Note ---
Progress Note Date of Service Oct 06, 2016. Subjective Pt evaluation today including: conversation w/ patient reports that shortness of breath is improved does have some sinus pressure Fever this morning Does not want to go back to [facility] for rehab or prosthetic training- wants to go home. Constitutional: + chills, + fever Eyes: No worsening of vision Respiratory: + cough, + dyspnea on exertion, + shortness of breath, + sputum , + wheezing Cardiovascular: + edema, No chest pain Abdomen: No constipation, No diarrhea, No nausea, No pain, No vomiting Musculoskeletal: + swelling, No joint pain, No muscle pain Female : No dysuria, No urinary frequency Objective Physical Exam General Appearance: no apparent distress Eyes: PERRL, EOMI ENT: hearing grossly normal Neck: supple, no adenopathy, thyroid normal Respiratory/Chest: no respiratory distress, no accessory muscle use, + decreased breath sounds, + rhonchi, + wheezing Cardiovascular: regular rate, rhythm Abdomen: normal bowel sounds, non tender, soft Extremities: + pedal edema (left lower extremity), + pertinent finding (right lower ext s/p BKA) Neurologic/Psychiatric: alert, + depressed affect Assessment and Plan 66-year-old who presented in respiratory distress 2/2 ? pneumonia and acute CHF exacerbation. Today, she seemed to have more of an oxygen requirement and also continues to be febrile. She did have significant bilateral expiratory wheezing as well. She reports that she does have shortness of breath at rest and with exertion. Shortness of breath 2/2 Pneumonia- improving slowly - repeat chest xray today- with right sided infiltrate- not visualized on earlier chest Xrays - on PO levaquin, Augmentin added by ID for possible sinusitis- discussed switching to IV Zosyn for pseudomonas coverage, Unasyn was recommended zosyn and vanc dc'd earlier - BC negative - infectious disease recommendations appreciated - did have a fever again this morning - No white count on CBC this morning - Did have some wheezing- will add duonebs, keep xoponex and atrovent Sepsis 2/2 pneumonia- resolved Acute on chronic diastolic CHF- improving - The patient receives 40 mg BID by mouth Lasix - Intake and output daily- minimal urine output - Daily weights - AHA, low-sodium diet - Continue home dose of metoprolol - ROSSI inhibitor and ARB, contraindicated with ESRD End-stage renal disease on HD - Will be dialyzed this afternoon - Gets dialysis Wednesday and Wednesday - Continue I/Os and daily weights - Renally dose medications - receiving epogen - renal diet - continue phoslo Left 2nd toe pressure ulcer - Appreciate wound care - no debridement at this time - avoid further pressure ulcers- keep in waffle boot History of SVT - Continue metoprolol, Amiodarone History of coronary artery disease - Continue clopidogrel - Continue metoprolol - Continue imdur Hypertension - Continue amlodipine and metoprolol Insulin-dependent Diabetes mellitus - will reduce lantus to 50 units due to some low blood sugar readings - Aspart sliding scale Hypercholesterolemia - continue atorvastatin - Continue gemfibrozil Peripheral neuropathy - D/C gabapentin- patient is only on lyrica - Continue Lyrica DVT prophylaxis - Heparin subcutaneous 3 times a day Code Status - Level I full code Disposition - med/surg - PT/OT- with prosthesis preferably Patient refusing to go to [facility]. will return home and continue outpatient physical therapy. History Resident Physician Supervision Note: I interviewed and examined the patient. Discussed with Dr. Evans and agree with findings and plan as documented in the note. Any exceptions or clarifications are listed here: Patient feeling better than when she came in, still coughing at times. Still with fever today. Is having sinus drainage Vitals reviewed Morbidly obese, no acute distress, nasal cannula in place Regular rate and rhythm, no murmurs gallops or rubs Diffuse expiratory wheezes, decreased breath sounds at the left base with crackles Abdomen-positive bowel sounds, soft, nontender, large completely reducible ventral hernia Extremities-right BKA, left leg with trace pitting edema Skin-stump incision appears well-healed 66-year-old female with complex medical history, here with sepsis and pneumonia , possible acute sinusitis. She is improving somewhat clinically, but continues with fevers and oxygen requirement -Continue Levaquin to be renally dosed, discussed case with infectious disease PA today, we'll add on Zosyn to cover for anaerobes with sinusitis as well as to double cover again in case of resistant Pseudomonas given recent prolonged hospital and rehabilitation stays -Repeat blood cultures today, try to obtain sputum culture -continue nebulizers -Continue to wean off oxygen -Appreciate wound care consultation -Continue dialysis on Tuesdays and Saturdays, appreciate nephrology management Documented By: Zakiya Chairez
[2016-10-06] MEDS ORDERED: AMOXICILLIN/CLAVULANATE TAB 500 MG TAB PO SCH ×2 (15:00→20:00)
[2016-10-06] MEDS: ALBUT/IPRATROP 3MG/0.5MG NEB 3 ML VIAL INH SCH ×2 (15:12→20:04)
[2016-10-06] MEDS ORDERED: EPOETIN ALFA 10,000 UNITS/ML VIAL IV. SCH (16:00)
[2016-10-06] MEDS ORDERED: EPOETIN ALFA 10,000 UNITS/ML VIAL SQ SCH (16:00)
[2016-10-06] MEDS ORDERED: PIPERACILL/TAZOBAC IV 4.5 GM in DEXTROSE 5% 100ML 100 ML IV SCH (17:45)
[2016-10-06] MEDS ORDERED: AMPICILLIN/SULBACTAM SOD INJ 1,500 MG in SODIUM CHLORIDE 0.9% 100ML 100 ML IV SCH (18:00)
[2016-10-06] MEDS ORDERED: PIPERACILL/TAZOBAC CONSULT ACTIVE PRN (18:15)
[2016-10-06] MEDS ORDERED: PIPERACILL/TAZOBAC IV 4.5 GM in DEXTROSE 5% 100ML IV ONE (18:30)
[2016-10-06] MEDS ORDERED: INSULIN GLARGINE SOLOSTAR 100 UNITS/ML 3 ML PEN SQ SCH (21:00)
[2016-10-07] VITALS (12 sets, daily range): BP systolic 105–147; BP diastolic 50–72; PULSE 57–72; TEMP 36.8–37.9; O2SAT 92–98
[2016-10-07] MEDS: ACETAMINOPHEN 500 MG TAB PO PRN ×2 (04:35→19:07)
[2016-10-07] MEDS: HEPARIN SOD 5000 UNIT/0.5 ML CARP SQ SCH ×3 (05:43→21:11)
[2016-10-07] MEDS: PIPERACILL/TAZOBAC IV 4.5 GM in DEXTROSE 5% 100ML IV SCH ×2 (05:43→17:47)
[2016-10-07] MEDS: ALBUT/IPRATROP 3MG/0.5MG NEB 3 ML VIAL INH SCH ×4 (07:10→19:44)
[2016-10-07] MEDS: BUDESONIDE 0.5 MG/2 ML VIAL (PULMICORT) INH SCH ×2 (07:10→19:44)
[2016-10-07] MEDS: PANTOprazole SOD 40 MG TAB PO SCH (08:18)
[2016-10-07] MEDS: CALCIUM ACETATE 667MG GELCAP PO SCH ×3 (08:19→17:16)
[2016-10-07] MEDS: CLOPIDOGREL BISULFATE 75 MG TAB PO SCH (08:19)
[2016-10-07] MEDS: FUROSEMIDE 40 MG TAB PO SCH ×2 (08:20→17:18)
[2016-10-07] MEDS: DOCUSATE SODIUM 100 MG CAP PO SCH ×2 (08:20→21:00)
[2016-10-07] MEDS: VITAMIN B COMPLEX TAB PO SCH (08:21)
[2016-10-07] MEDS: GEMFIBROZIL 600 MG TAB PO SCH ×2 (08:21→21:03)
[2016-10-07] MEDS: ATORVASTATIN 40 MG TAB PO SCH (08:28)
[2016-10-07] MEDS: AMLODIPINE BESYLATE 5 MG TAB PO SCH (08:28)
[2016-10-07] MEDS: ISOSORBIDE MONONITRATE 60 MG TABCR PO SCH (08:28)
[2016-10-07] MEDS: AMIODARONE 200 MG TAB PO SCH ×2 (08:28→21:05)
[2016-10-07] MEDS: METOPROLOL TARTRATE 100 MG TAB PO SCH ×2 (08:30→21:04)
[2016-10-07] MEDS: PREGABALIN 25MG CAP PO SCH ×2 (08:33→21:02)
[2016-10-07] MEDS: GUAIFENESIN 200 MG TAB PO SCH ×2 (08:34→21:05)
[2016-10-07] MEDS ORDERED: EPOETIN ALFA 10,000 UNITS/ML VIAL IV SCH (08:45)
[2016-10-07] MEDS: INSULIN ASPART 100 UNITS/ML 3 ML PEN SC SCH ×4 (09:00→21:09)
[2016-10-07 09:02] LABS: HEMATOCRIT 25.1 % (37-47); MEAN CELL VOLUME 93.3 fL (80-100); MEAN CORPUSCULAR HEMOGLOBIN 31.6 pg (25-34); MEAN CORPUSCULAR HGB CONC 33.9 g/dl (32-36); MEAN PLATELET VOLUME 9.5 fL (7.4-10.4); PLATELET COUNT 190 K/uL (130-400); RED BLOOD COUNT 2.69 M/uL (4.2-5.4); WHITE BLOOD COUNT 6.99 K/uL (4.8-10.8)
[2016-10-07 09:27] LABS: BUN/CREATININE RATIO 4.3 (10-20); CALCIUM 8.9 mg/dl (8.5-10.1); CREATININE 5.7 mg/dl (0.60-1.20)
--- NOTE | 2016-10-07 12:30 | Nephrology Progress Note ---
Nephrology Progress Note Date of Service Oct 07, 2016. Chief Complaint ESRD Subjective No acute events overnight. Umu feels well this morning. She tolerated HD yesterday, UF 3.8 kg. She denies shortness of breath but remains on supplemental oxygen. No fevers or chills. She insists that she will go home at the time of discharge. Blood glucose low this morning but Umu reports minimal symptoms. Appetite is good. Review of Systems A complete review of systems was performed. Pertinent positives are noted above. All other systems are negative. Vital Signs Last 8 Hrs Date Time Temp Pulse Resp B/P Pulse Ox O2 Delivery O2 Flow Rate FiO2 10/07/16 11:38 36.9 59 18 105/62 97 Nasal Cannula 4.0 10/07/16 11:33 57 20 96 Nasal Cannula 4.0 10/07/16 08:00 Nasal Cannula 4.0 10/07/16 07:49 36.8 62 18 120/67 95 Room Air 10/07/16 07:24 67 20 92 Nasal Cannula 4.0 10/07/16 04:44 37.9 67 18 124/67 96 4.0 I & O 24-Hour Column 10/07/16 08:00 Intake Total 260 ml Output Total 3849 ml Balance -3589 ml Last Recorded Weight Weight (Kilograms): 102.600 Physical Exam General Appearance: WD/WN, no apparent distress Head: normocephalic, atraumatic Eyes: normal inspection, sclerae normal ENT: normal ENT inspection, pharynx normal Neck: supple, no JVD Respiratory/Chest: lungs clear, no respiratory distress, no accessory muscle use Cardiovascular: regular rate, rhythm, no gallop, no murmur Abdomen/GI: non tender, soft Extremities/Musculoskelatal: + pedal edema (trace), + pertinent finding (AVF with thrill and bruit, R BKA) Neurologic/Psych: alert, oriented x 3 Family History FHx: musculoskeletal disease Social History Smoking Status: Unknown if ever smoked Smokeless Tobacco Use: No Alcohol Use: none Drug Use: none Marital Status: Housing Status: lives with family Occupation: retired Laboratory Results Past 24 Hours 10/06/16 13:12 10/07/16 08:30 10/07/16 08:30 Test 10/06/16 13:11 10/06/16 20:11 10/07/16 04:58 10/07/16 05:24 Bedside Glucose 96 mg/dl (70-90) 83 mg/dl (70-90) 69 mg/dl (70-90) 80 mg/dl (70-90) Test 10/07/16 07:10 10/07/16 08:30 10/07/16 11:42 Bedside Glucose 92 mg/dl (70-90) 137 mg/dl (70-90) Red Blood Count 2.69 M/uL (4.2-5.4) Mean Corpuscular Volume 93.3 fL (80-100) Mean Corpuscular Hemoglobin 31.6 pg (25-34) Mean Corpuscular Hemoglobin Concent 33.9 g/dl (32-36) RDW Standard Deviation 55.1 fL (36.4-46.3) RDW Coefficient of Variation 16.3 % (11.5-14.5) Mean Platelet Volume 9.5 fL (7.4-10.4) Anion Gap 12.0 mmol/L (3-11) Est Creatinine Clear Calc Drug Dose 11.4 ml/min Estimated GFR () 8.2 Estimated GFR (Non- 7.1 BUN/Creatinine Ratio 4.3 (10-20) Calcium Level 8.9 mg/dl (8.5-10.1) Allergies Coded Allergies: No Known Allergies (Verified , 07/08/16) Medications Current Inpatient Medications Medications (Trade) Dose Ordered Sig/Sheela Route Start Time Stop Time Status Last Admin Dose Admin Acetaminophen (Tylenol Tab) 1,000 mg Q8 PRN PO 10/02/16 01:00 11/01/16 00:59 10/07/16 04:35 1,000 MG Amiodarone HCl (Cordarone Tab) 200 mg BID PO 10/02/16 09:00 11/01/16 08:59 10/07/16 08:28 200 MG Amlodipine Besylate (Norvasc Tab) 5 mg QAM PO 10/02/16 09:00 11/01/16 08:59 10/07/16 08:28 5 MG Atorvastatin Calcium (Lipitor Tab) 40 mg QAM PO 10/02/16 09:00 11/01/16 08:59 10/07/16 08:28 40 MG Calcium Acetate (Phoslo Cap) 667 mg TIDM PO 10/02/16 08:00 11/01/16 07:59 10/07/16 08:19 667 MG Clopidogrel Bisulfate (plAVix TAB) 75 mg QAM PO 10/02/16 09:00 11/01/16 08:59 10/07/16 08:19 75 MG Docusate Sodium (coLACE CAP) 100 mg BID PO 10/02/16 09:00 11/01/16 08:59 10/06/16 21:24 100 MG Gemfibrozil (Lopid Tab) 600 mg BID PO 10/02/16 09:00 11/01/16 08:59 10/07/16 08:21 600 MG Isosorbide Mononitrate (Imdur Ext Rel Tab) 60 mg QAM PO 10/02/16 09:00 11/01/16 08:59 10/07/16 08:28 60 MG Metoprolol Tartrate (Lopressor Tab) 100 mg BID PO 10/02/16 09:00 11/01/16 08:59 10/07/16 08:30 100 MG Pregabalin (Lyrica Cap) 25 mg BID PO 10/02/16 09:00 11/01/16 08:59 10/07/16 08:33 25 MG Tramadol HCl (Ultram Tab) 50 mg Q4H PRN PO 10/02/16 01:00 11/01/16 00:59 Zolpidem Tartrate (Ambien Tab) 5 mg HS PRN PO 10/02/16 01:00 11/01/16 00:59 Vitamin B Complex (Vitamin B Complex) 1 tab QAM PO 10/02/16 09:00 11/01/16 08:59 10/07/16 08:21 1 TAB Ondansetron HCl (Zofran Inj) 4 mg Q6H PRN IV 10/02/16 01:00 11/01/16 00:59 10/04/16 06:21 4 MG Insulin Aspart (novoLOG ASPART) SLIDING SCALE If C... ACHS SC 10/02/16 06:30 11/01/16 06:59 10/05/16 21:34 1 UNITS Glucose (Glucose 40% Gel) UD PRN PO 10/02/16 01:00 11/01/16 00:59 Glucose (Glucose Chew Tab) 1 tabs UD PRN PO 10/02/16 01:00 11/01/16 00:59 Dextrose (Dextrose 50% 50ML Syringe) 50 ml UD PRN IV 10/02/16 01:00 11/01/16 00:59 Glucagon (Glucagon Inj) 1 mg UD PRN SQ 10/02/16 01:00 11/01/16 00:59 Guaifenesin (Organidin Nr Tab) 600 mg BID PO 10/02/16 09:00 11/01/16 08:59 10/07/16 08:34 600 MG Budesonide (Pulmicort Respules 0.5MG/ 2ML Neb Soln) 0.5 mg BIDR INH 10/02/16 08:00 11/01/16 07:59 10/07/16 07:10 0.5 MG Levofloxacin (Consult) 1 ea UD PRN N/A 10/02/16 02:30 11/01/16 02:29 Hydralazine HCl (HydrALAZINE INJ) 10 mg Q4H PRN IV. 10/02/16 13:15 11/01/16 13:14 10/02/16 14:34 10 MG Furosemide (Lasix Tab) 40 mg BID17 PO 10/02/16 17:00 11/01/16 16:59 10/07/16 08:20 40 MG Heparin Sodium (Porcine) (Heparin Sq 5000 Unit/0.5ml) 5,000 unit Q8 SQ 10/02/16 22:00 11/01/16 21:59 10/07/16 05:43 5,000 UNIT Pantoprazole Sodium (Protonix Tab) 40 mg QAM PO 10/03/16 09:00 11/02/16 08:59 10/07/16 08:18 40 MG Benzonatate (Tessalon Perles Cap) 100 mg TID PRN PO 10/04/16 13:30 11/03/16 13:29 10/05/16 08:48 100 MG Levofloxacin (Levaquin Tab) 250 mg Q48H PO 10/06/16 09:00 10/08/16 23:59 10/06/16 08:00 250 MG Epoetin Jan (Procrit Inj) 10,000 units TuThSa@1600 IV. 10/06/16 16:00 11/05/16 15:59 10/06/16 18:36 10,000 UNITS Albuterol/ Ipratropium (Duoneb) 3 ml QIDR INH 10/06/16 16:00 11/05/16 15:59 10/07/16 11:32 3 ML Albuterol/ Ipratropium (Duoneb) 3 ml Q2R PRN INH 10/06/16 13:15 11/05/16 13:14 Piperacillin Sod/ Tazobactam Sod 1 ea 1 ea UD PRN N/A 10/06/16 18:15 11/05/16 18:14 Piperacillin Sod/ Tazobactam Sod/ Dextrose (Zosyn Iv/D5 100ml) 120 ml @ 30 mls/hr Q12H IV 10/07/16 02:00 10/14/16 01:59 10/07/16 05:43 30 MLS/HR Insulin Glargine (Lantus Solostar Pen) 40 unit QPM SQ 10/07/16 21:00 11/06/16 20:59 Impression (1) ESRD on dialysis (2) Hypoxia (3) Anemia (4) Hx of right BKA (5) Hypertension (6) Diabetes mellitus (7) Pneumonia Umu is a 66-year-old female with 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 Umu was admitted to [facility] with fevers and shaking chills due to pneumonia. Chest x-ray documenting pulmonary congestion and right lower lobe infiltrate. Blood cultures negative. Recently had right BKA, and [facility]. PMH also significant for HTN, DM and chronic diabetic ulcer, osteomyelitis and BKA. Recommendations -- HD TTS -- Blood pressure and volume status currently appropriate [place] [address] [place] -- Medications appropriate for renal function -- Continue furosemide 40 mg twice daily -- Renal diet -- [facility]
--- NOTE | 2016-10-07 13:14 | Infectious Disease Progress Nt ---
Progress Note Date of Service Oct 07, 2016. Subjective Pt evaluation today including: conversation w/ patient, conversation w/ family (), physical exam, chart review, lab review, review of studies, conversation w/ j2ee consultant (Dr. Chairez), review of inpatient medication list Patient states that she is feeling slightly improved today. She continues to have a cough and some mild sinus drainage. She feels that her sinus drainage is less today. She will have repeat blood cultures taken yesterday afternoon which are pending. She was restarted on IV Zosyn. The patient states that she has also been experiencing loose/watery stools. She attributed this to the antibiotic therapy. All Other Systems: Reviewed and Negative Medications Current Inpatient Medications Medications (Trade) Dose Ordered Sig/Sheela Route Start Time Stop Time Status Last Admin Dose Admin Acetaminophen (Tylenol Tab) 1,000 mg Q8 PRN PO 10/02/16 01:00 11/01/16 00:59 10/07/16 04:35 1,000 MG Amiodarone HCl (Cordarone Tab) 200 mg BID PO 10/02/16 09:00 11/01/16 08:59 10/07/16 08:28 200 MG Amlodipine Besylate (Norvasc Tab) 5 mg QAM PO 10/02/16 09:00 11/01/16 08:59 10/07/16 08:28 5 MG Atorvastatin Calcium (Lipitor Tab) 40 mg QAM PO 10/02/16 09:00 11/01/16 08:59 10/07/16 08:28 40 MG Calcium Acetate (Phoslo Cap) 667 mg TIDM PO 10/02/16 08:00 11/01/16 07:59 10/07/16 12:55 667 MG Clopidogrel Bisulfate (plAVix TAB) 75 mg QAM PO 10/02/16 09:00 11/01/16 08:59 10/07/16 08:19 75 MG Docusate Sodium (coLACE CAP) 100 mg BID PO 10/02/16 09:00 11/01/16 08:59 10/06/16 21:24 100 MG Gemfibrozil (Lopid Tab) 600 mg BID PO 10/02/16 09:00 11/01/16 08:59 10/07/16 08:21 600 MG Isosorbide Mononitrate (Imdur Ext Rel Tab) 60 mg QAM PO 10/02/16 09:00 11/01/16 08:59 10/07/16 08:28 60 MG Metoprolol Tartrate (Lopressor Tab) 100 mg BID PO 10/02/16 09:00 11/01/16 08:59 10/07/16 08:30 100 MG Pregabalin (Lyrica Cap) 25 mg BID PO 10/02/16 09:00 11/01/16 08:59 10/07/16 08:33 25 MG Tramadol HCl (Ultram Tab) 50 mg Q4H PRN PO 10/02/16 01:00 11/01/16 00:59 Zolpidem Tartrate (Ambien Tab) 5 mg HS PRN PO 10/02/16 01:00 11/01/16 00:59 Vitamin B Complex (Vitamin B Complex) 1 tab QAM PO 10/02/16 09:00 11/01/16 08:59 10/07/16 08:21 1 TAB Ondansetron HCl (Zofran Inj) 4 mg Q6H PRN IV 10/02/16 01:00 11/01/16 00:59 10/04/16 06:21 4 MG Insulin Aspart (novoLOG ASPART) SLIDING SCALE If C... ACHS SC 10/02/16 06:30 11/01/16 06:59 10/07/16 12:54 11 UNITS Glucose (Glucose 40% Gel) UD PRN PO 10/02/16 01:00 11/01/16 00:59 Glucose (Glucose Chew Tab) 1 tabs UD PRN PO 10/02/16 01:00 11/01/16 00:59 Dextrose (Dextrose 50% 50ML Syringe) 50 ml UD PRN IV 10/02/16 01:00 11/01/16 00:59 Glucagon (Glucagon Inj) 1 mg UD PRN SQ 10/02/16 01:00 11/01/16 00:59 Guaifenesin (Organidin Nr Tab) 600 mg BID PO 10/02/16 09:00 11/01/16 08:59 10/07/16 08:34 600 MG Budesonide (Pulmicort Respules 0.5MG/ 2ML Neb Soln) 0.5 mg BIDR INH 10/02/16 08:00 11/01/16 07:59 10/07/16 07:10 0.5 MG Levofloxacin (Consult) 1 ea UD PRN N/A 10/02/16 02:30 11/01/16 02:29 Hydralazine HCl (HydrALAZINE INJ) 10 mg Q4H PRN IV. 10/02/16 13:15 11/01/16 13:14 10/02/16 14:34 10 MG Furosemide (Lasix Tab) 40 mg BID17 PO 10/02/16 17:00 11/01/16 16:59 10/07/16 08:20 40 MG Heparin Sodium (Porcine) (Heparin Sq 5000 Unit/0.5ml) 5,000 unit Q8 SQ 10/02/16 22:00 11/01/16 21:59 10/07/16 05:43 5,000 UNIT Pantoprazole Sodium (Protonix Tab) 40 mg QAM PO 10/03/16 09:00 11/02/16 08:59 10/07/16 08:18 40 MG Benzonatate (Tessalon Perles Cap) 100 mg TID PRN PO 10/04/16 13:30 11/03/16 13:29 10/05/16 08:48 100 MG Levofloxacin (Levaquin Tab) 250 mg Q48H PO 10/06/16 09:00 10/08/16 23:59 10/06/16 08:00 250 MG Epoetin Jan (Procrit Inj) 10,000 units TuThSa@1600 IV. 10/06/16 16:00 11/05/16 15:59 10/06/16 18:36 10,000 UNITS Albuterol/ Ipratropium (Duoneb) 3 ml QIDR INH 10/06/16 16:00 11/05/16 15:59 10/07/16 11:32 3 ML Albuterol/ Ipratropium (Duoneb) 3 ml Q2R PRN INH 10/06/16 13:15 11/05/16 13:14 Piperacillin Sod/ Tazobactam Sod 1 ea 1 ea UD PRN N/A 10/06/16 18:15 11/05/16 18:14 Piperacillin Sod/ Tazobactam Sod/ Dextrose (Zosyn Iv/D5 100ml) 120 ml @ 30 mls/hr Q12H IV 10/07/16 02:00 10/14/16 01:59 10/07/16 05:43 30 MLS/HR Insulin Glargine (Lantus Solostar Pen) 40 unit QPM SQ 10/07/16 21:00 11/06/16 20:59 Objective Vital Signs Date Time Temp Pulse Resp B/P Pulse Ox O2 Delivery O2 Flow Rate FiO2 10/07/16 11:38 36.9 59 18 105/62 97 Nasal Cannula 4.0 10/07/16 11:33 57 20 96 Nasal Cannula 4.0 10/07/16 08:00 Nasal Cannula 4.0 10/07/16 07:49 36.8 62 18 120/67 95 Room Air 10/07/16 07:24 67 20 92 Nasal Cannula 4.0 10/07/16 04:44 37.9 67 18 124/67 96 4.0 10/07/16 04:00 Nasal Cannula 4.0 10/07/16 00:19 37.1 72 20 133/64 95 4.0 10/07/16 00:00 Nasal Cannula 4.0 10/06/16 20:05 78 20 93 Nasal Cannula 4.0 10/06/16 20:00 Nasal Cannula 4.0 10/06/16 19:56 36.7 70 18 128/61 94 Nasal Cannula 4.0 10/06/16 19:05 36.8 67 121/56 10/06/16 15:00 61 92/46 10/06/16 14:59 36.8 60 20 105/56 90 Nasal Cannula 4.0 10/06/16 14:51 36.7 60 94/41 Physical Exam General Appearance: no apparent distress, + obese Eyes: normal inspection, sclerae normal ENT: hearing grossly normal Neck: supple, trachea midline Respiratory/Chest: no respiratory distress, no accessory muscle use, + pertinent finding (right lung with coarse breath sounds throughout, mild) Cardiovascular: regular rate, rhythm Abdomen: normal bowel sounds, non tender, soft Neurologic/Psychiatric: alert, normal mood/affect Skin: normal color, warm/dry, no rash Laboratory Results Item Value Date Time Blood Culture Received 10/06/162027 Blood Pending C.difficile Toxin B Gene (PCR) Received 10/07/16 1230 Stool Pending Blood Culture Received 10/06/162021 Blood Pending MRSA DNA Surveillance Screen - Final Complete 10/02/16 1137 Nasal Specimen Negative for MRSA by DNA Probe Blood Culture - Final Complete 10/01/16 2333 Blood NO GROWTH Blood Culture - Final Complete 10/01/16 2330 Blood NO GROWTH Last 24 Hours Test 10/06/16 13:11 10/06/16 13:12 10/06/16 20:11 10/07/16 04:58 Bedside Glucose 96 mg/dl 83 mg/dl 69 mg/dl Hemoglobin 8.1 g/dL Hematocrit 23.8 % Test 10/07/16 05:24 10/07/16 07:10 10/07/16 08:30 10/07/16 11:42 Bedside Glucose 80 mg/dl 92 mg/dl 137 mg/dl White Blood Count 6.99 K/uL Red Blood Count 2.69 M/uL Hemoglobin 8.5 g/dL Hematocrit 25.1 % Mean Corpuscular Volume 93.3 fL Mean Corpuscular Hemoglobin 31.6 pg Mean Corpuscular Hemoglobin Concent 33.9 g/dl RDW Standard Deviation 55.1 fL RDW Coefficient of Variation 16.3 % Platelet Count 190 K/uL Mean Platelet Volume 9.5 fL Sodium Level 134 mmol/L Potassium Level 4.0 mmol/L Chloride Level 96 mmol/L Carbon Dioxide Level 26 mmol/L Anion Gap 12.0 mmol/L Blood Urea Nitrogen 24 mg/dl Creatinine 5.70 mg/dl Est Creatinine Clear Calc Drug Dose 11.4 ml/min Estimated GFR () 8.2 Estimated GFR (Non- 7.1 BUN/Creatinine Ratio 4.3 Random Glucose 92 mg/dl Calcium Level 8.9 mg/dl Assessment and Plan Diabetic female with recent history of right BKA and now probable RLL pneumonia and sinusitis. She is currently on PO Levaquin IV Zosyn. MRSA nasal swab was negative. Patient appears to be improving slowly. Will continue IV therapy for now pending further improvement. We will follow. Case reviewed and agree with above assessment.
--- NOTE | 2016-10-07 17:15 | DIAGNOSTIC IMAGING REPORT ---
SINUS CT CT DOSE: HISTORY: Pain suspect sinusitis, neck pain and stiffness TECHNIQUE: Multiaxial CT images of the paranasal sinuses were performed and reformatted in the coronal plane without the use of contrast. COMPARISON: None. FINDINGS: Mild mucosal thickening of the sphenoid and maxillary sinuses. Soft tissue occlusion of the left ostiomeatal unit. High-grade soft tissue narrowing right ostiomeatal unit. Nasal turbinates appear symmetric. Slight hyperplastic change anterior right nasal turbinates. Frontal sinuses are clear. Osseous structures are negative for a lytic or blastic process. The mastoid air cells are clear. The nasal septum is midline. The orbits are unremarkable. IMPRESSION: Minimal scattered mucosal thickening. Soft tissue occlusion left ostiomeatal unit. Soft tissue narrowing on the right. Electronically signed by: Cornell Malhotra M.D. 10/07/2016 5:12 PM Dictated Date/Time: 10/07/2016 5:10 PM
--- NOTE | 2016-10-07 17:22 | DIAGNOSTIC IMAGING REPORT ---
CHEST CT WITHOUT CONTRAST CT DOSE: 1808.66 mGy.cm HISTORY: Dyspnea pneumonia, further evaluate, spiking fevers TECHNIQUE: Multiaxial CT images of the chest were performed without contrast. COMPARISON: None. FINDINGS: Bibasilar parenchymal infiltrates. There are consolidative changes left lung base with a small left effusion. There are minimal consolidative changes right base. Mid and upper lungs are considered clear. Several small reactive mediastinal and/or hilar nodes. Moderate cardiomegaly. Several small hepatic cysts. Mild hyperplastic change of the left adrenal. IMPRESSION: Consolidative left and to a lesser extent right basilar infiltrative change. Trace left basilar pleural effusion Electronically signed by: Cornell Malhotra M.D. 10/07/2016 5:19 PM Dictated Date/Time: 10/07/2016 5:14 PM
--- NOTE | 2016-10-07 18:57 | Family Medicine Progress Note ---
Progress Note Date of Service Oct 07, 2016. Subjective Pt evaluation today including: conversation w/ patient, conversation w/ family Voiding: no voiding problems Reports no shortness of breath Does have some sweats/chills Constitutional: + chills, + fatigue, + fever, + sweats, + weakness Eyes: No worsening of vision ENT: No hearing loss Respiratory: No cough, No dyspnea on exertion, No shortness of breath, No sputum, No wheezing Cardiovascular: No chest pain Abdomen: No constipation, No diarrhea, No nausea, No pain, No vomiting Musculoskeletal: + joint pain, No calf pain, No swelling Female : No dysuria, No urinary frequency Objective Physical Exam General Appearance: no apparent distress, + obese Eyes: PERRL, EOMI ENT: hearing grossly normal Neck: no adenopathy, thyroid normal Respiratory/Chest: no respiratory distress, no accessory muscle use, + decreased breath sounds, + crackles Cardiovascular: regular rate, rhythm Abdomen: normal bowel sounds, non tender, soft Extremities: non-tender, + pertinent finding (right BKA amputation, left foot with small pressure ulcer) Neurologic/Psychiatric: alert, oriented x 3, + depressed affect Assessment and Plan 66-year-old who presented in respiratory distress 2/2 pneumonia and acute CHF exacerbation. She continues to have oxygen requirement that is unable to be weaned and also continues to be febrile. Her lung exam today though was improved without wheezing, continues to have decreased breath sounds at the bases and some crackles. She reports that she does have shortness of breath at rest and with exertion. She is improving slowly. Dr. Chairez had evaluated the patient later in the day and she was complaining of some neck pain and stiffness. She also complains of some sinus drainage. Shortness of breath 2/2 Pneumonia- improving slowly - repeat chest xray on 10/06 with right sided infiltrate - Will do CT chest to get a better look at her pneumonia - on PO Levaquin, and Zosyn currently to cover for Pseudomonas and sinusitis - BC negative - infectious disease recommendations appreciated - did have a fever again this morning - No white count on CBC this morning - continue duonebs, keep xoponex and atrovent Neck pain/stiffness/Sinus drainage Will get a CT SInus need to consider doing a spinal Tap for possible meningitis, especially with persistent fevers. - discussed with ID Sepsis 2/2 pneumonia- resolved Acute on chronic diastolic CHF- improving - The patient receives 40 mg BID by mouth Lasix - Intake and output daily- minimal urine output - Daily weights - AHA, low-sodium diet - Continue home dose of metoprolol - ROSSI inhibitor and ARB, contraindicated with ESRD End-stage renal disease on HD - Will be dialyzed tomorrow - Gets dialysis Wednesday and Wednesday - Continue I/Os and daily weights - Renally dose medications - receiving epogen - renal diet - continue phoslo - removed 3+ L yesterday with dialysis Left 2nd toe pressure ulcer- not present on admission - Appreciate wound care - no debridement at this time - avoid further pressure ulcers- keep in waffle boot History of SVT - Continue metoprolol, Amiodarone History of coronary artery disease - Continue clopidogrel - Continue metoprolol - Continue imdur Hypertension - Continue amlodipine and metoprolol Insulin-dependent Diabetes mellitus - Had hypoglycemia again this morning - will reduce lantus to 40 units due to some low blood sugar readings - Aspart sliding scale Hypercholesterolemia - continue atorvastatin - Continue gemfibrozil Peripheral neuropathy - Continue Lyrica DVT prophylaxis - Heparin subcutaneous 3 times a day Code Status - Level I full code Disposition - med/surg - PT/OT- with prosthesis preferably - Patient refusing to go to [facility]. will return home and continue outpatient physical therapy. History Resident Physician Supervision Note: I interviewed and examined the patient. Discussed with Dr. Evans and agree with findings and plan as documented in the note. Any exceptions or clarifications are listed here: Patient feeling better than when she came in, still coughing at times. Still with fever today. Is having sinus drainage and now with development of stiff and painful posterior neck since last evening. Has chronic photophobia but not worse than her usual. Vitals reviewed Morbidly obese, no acute distress, nasal cannula in place +TTP over posterior cervical psine, decreased ROM of neck in all directions, no definite nuchal rigidity Regular rate and rhythm, no murmurs gallops or rubs Diffuse expiratory wheezes, decreased breath sounds at the left base with crackles Abdomen-positive bowel sounds, soft, nontender, large completely reducible ventral hernia Extremities-right BKA, left leg with trace pitting edema Skin-stump incision appears well-healed, left 2nd toe with very small blood blister without surrounding erythema 66-year-old female with complex medical history, here with sepsis and pneumonia , possible acute sinusitis. She is improving somewhat clinically, but continues with fevers and oxygen requirement, now with stiff and painful neck. Chest CT confirms bilat PNA, CT sinuses with obstruction and narrowing of bilat OM complexes, and some chronic sinusitis findings, no signs of invasion into meninges. -Continue Levaquin (day #6) renally dosed, added back Zosyn again (day#2) to double cover in case of resistant Pseudomonas and for anaerobic coverage given recent prolonged hospital and rehabilitation stays--> discussed case with infectious disease PA . With stiff neck, the Zosyn would cover her for meningitis as well. MRSA swab negative but if continues to spike fevers, may add Vanco back as well. -follow Repeat blood cultures, try to obtain sputum culture -continue nebulizers -Continue to wean off oxygen -Appreciate wound care consultation -Continue dialysis on Tuesdays and Saturdays, appreciate nephrology management Documented By: Zakiya Chairez
[2016-10-07] MEDS: INSULIN GLARGINE SOLOSTAR 100 UNITS/ML 3 ML PEN SQ SCH (21:10)
[2016-10-08] VITALS (26 sets, daily range): BP systolic 116–188; BP diastolic 49–100; PULSE 59–77; TEMP 36.5–37.2; O2SAT 90–96
[2016-10-08] MEDS: PIPERACILL/TAZOBAC IV 4.5 GM in DEXTROSE 5% 100ML IV SCH ×3 (05:41→17:31)
[2016-10-08] MEDS: HEPARIN SOD 5000 UNIT/0.5 ML CARP SQ SCH ×3 (05:47→20:50)
[2016-10-08] MEDS: BUDESONIDE 0.5 MG/2 ML VIAL (PULMICORT) INH SCH ×3 (07:17→20:11)
[2016-10-08] MEDS: ALBUT/IPRATROP 3MG/0.5MG NEB 3 ML VIAL INH SCH ×5 (07:17→20:11)
[2016-10-08] MEDS: DOCUSATE SODIUM 100 MG CAP PO SCH ×2 (09:00→20:44)
[2016-10-08] MEDS ORDERED: HEPARIN SOD (PORCINE) 1000 UNIT/ML 10 ML VIAL IV SCH ×2 (10:00)
[2016-10-08] MEDS: PANTOprazole SOD 40 MG TAB PO SCH (10:42)
[2016-10-08] MEDS: METOPROLOL TARTRATE 100 MG TAB PO SCH ×2 (10:42→20:47)
[2016-10-08] MEDS: LEVOFLOXACIN 250 MG TAB PO SCH (10:43)
[2016-10-08] MEDS: VITAMIN B COMPLEX TAB PO SCH (10:43)
[2016-10-08] MEDS: CLOPIDOGREL BISULFATE 75 MG TAB PO SCH (10:43)
[2016-10-08] MEDS: PREGABALIN 25MG CAP PO SCH ×2 (10:43→20:45)
[2016-10-08] MEDS: GUAIFENESIN 200 MG TAB PO SCH ×2 (10:43→20:46)
[2016-10-08] MEDS: CALCIUM ACETATE 667MG GELCAP PO SCH ×3 (10:44→17:23)
[2016-10-08] MEDS: ATORVASTATIN 40 MG TAB PO SCH (10:44)
[2016-10-08] MEDS: AMLODIPINE BESYLATE 5 MG TAB PO SCH (10:44)
[2016-10-08] MEDS: ISOSORBIDE MONONITRATE 60 MG TABCR PO SCH (10:44)
[2016-10-08] MEDS: FUROSEMIDE 40 MG TAB PO SCH ×2 (10:45→17:23)
[2016-10-08] MEDS: AMIODARONE 200 MG TAB PO SCH ×2 (10:46→20:46)
[2016-10-08] MEDS: GEMFIBROZIL 600 MG TAB PO SCH ×2 (10:46→20:45)
--- NOTE | 2016-10-08 10:49 | Family Medicine Progress Note ---
Progress Note Date of Service Oct 08, 2016. Subjective Pt evaluation today including: conversation w/ patient Neck pain / stiffness has improved shortness of breath improves exhausted from dialysis Constitutional: + fatigue, + weakness, No chills, No fever Eyes: No worsening of vision ENT: No hearing loss Respiratory: + cough, + shortness of breath, + sputum, No dyspnea on exertion, No wheezing Cardiovascular: No chest pain Abdomen: No diarrhea, No nausea, No pain, No vomiting Musculoskeletal: No joint pain Female : No dysuria, No urinary frequency Objective Physical Exam General Appearance: no apparent distress Eyes: PERRL, EOMI ENT: hearing grossly normal Neck: supple, no adenopathy Respiratory/Chest: no respiratory distress, no accessory muscle use, + decreased breath sounds, + rhonchi, + pertinent finding (minimal crackles, ) Cardiovascular: regular rate, rhythm, no murmur Abdomen: normal bowel sounds, non tender, soft, + pertinent finding (ventral hernia, reducible) Extremities: + pedal edema (trace), + pertinent finding (right BKA amputation,) Neurologic/Psychiatric: alert, oriented x 3, + depressed affect Assessment and Plan 66-year-old who presented in respiratory distress 2/2 pneumonia and acute CHF exacerbation. She seems to have shown some improvement today. Her oxygen requirement has decreased. She has been afebrile over the last 24 hours. Her lung exam is reassuring without wheezing and she reports improved breathing. She does have a cough but her neck pain has improved and sinus drainage is minimal today. Shortness of breath 2/2 Pneumonia- improving - CT with Consolidative left and to a lesser extent right basilar infiltrative change. Trace left basilar pleural effusion - on PO Levaquin, and IV Zosyn currently to cover for Pseudomonas and sinusitis - will continue - BC negative - infectious disease recommendations appreciated - no fever or leucocytosis today - continue duonebs, keep xoponex and atrovent - incentive spirometry - repeat blood cultures negative Neck pain/stiffness/Sinus drainage Sinus CT- Minimal scattered mucosal thickening. Soft tissue occlusion left ostiomeatal unit. Soft tissue narrowing on the right. Since she has shown improvement in her symptoms, no need for spinal tap at this time. Sepsis 2/2 pneumonia- resolved Acute on chronic diastolic CHF- improving - The patient receives 40 mg BID by mouth Lasix - Intake and output daily- minimal urine output - Daily weights - AHA, low-sodium diet - Continue home dose of metoprolol - ROSSI inhibitor and ARB, contraindicated with ESRD End-stage renal disease on HD - Dialyzed today - Gets dialysis Wednesday and Wednesday - Continue I/Os and daily weights - Renally dose medications - receiving epogen - renal diet - continue phoslo - removed 4+ L today with dialysis Left 2nd toe pressure ulcer- not present on admission - Appreciate wound care - no debridement at this time - avoid further pressure ulcers- keep in waffle boot History of SVT - Continue metoprolol, Amiodarone History of coronary artery disease - Continue clopidogrel - Continue metoprolol - Continue imdur Hypertension - Continue amlodipine and metoprolol Insulin-dependent Diabetes mellitus - no further hypoglycemia this morning - lantus at 40 units - Aspart sliding scale Hypercholesterolemia - continue atorvastatin - Continue gemfibrozil Peripheral neuropathy - Continue Lyrica DVT prophylaxis - Heparin subcutaneous 3 times a day Code Status - Level I full code Disposition - med/surg - PT/OT- with prosthesis preferably - Patient refusing to go to [facility]. will return home and continue outpatient physical therapy. - Encourage mobility Reviewed: Pt Seen/Exam by Me History Resident Physician Supervision Note: I interviewed and examined the patient. Discussed with Dr. Evans and agree with findings and plan as documented in the note. Any exceptions or clarifications are listed here: Feeling better today, her neck is less stiff and painful, very tired today after dialysis, afebrile, reviewed CT sinuses and chest results with her and Vitals reviewed, afebrile Morbidly obese, no acute distress +TTP over posterior cervical spine, decreased ROM of neck in all directions, no definite nuchal rigidity Regular rate and rhythm, no murmurs gallops or rubs Diffuse expiratory wheezes, decreased breath sounds at the left base with crackles Abdomen-positive bowel sounds, soft, nontender, large completely reducible ventral hernia Extremities-right BKA, left leg with trace pitting edema Skin-stump incision appears well-healed, left 2nd toe with very small blood blister without surrounding erythema 66-year-old female with complex medical history, here with sepsis and pneumonia , possible acute sinusitis. She is improving somewhat clinically, but continues with fevers and oxygen requirement, now with stiff and painful neck. Chest CT confirms bilat PNA, CT sinuses with obstruction and narrowing of bilat OM complexes, and some chronic sinusitis findings, no signs of invasion into meninges. -Continue Levaquin (day #7/10) renally dosed, added back Zosyn again (day#3) to double cover in case of resistant Pseudomonas and for anaerobic coverage given recent prolonged hospital and rehabilitation stays--> discussed case with infectious disease PA . With stiff neck, the Zosyn would cover her for meningitis as well. MRSA swab negative but if continues to spike fevers, may add Vanco back as well. Seems to be doing better today so Zosyn must be helping. No need for spinal tap. Is weaned off oxygen -follow Repeat blood cultures -continue nebulizers -Appreciate wound care consultation -Continue dialysis on Tuesdays and Saturdays, appreciate nephrology management Documented By: Zakiya Chairez
[2016-10-08] MEDS: INSULIN ASPART 100 UNITS/ML 3 ML PEN SC SCH ×4 (11:00→20:51)
--- NOTE | 2016-10-08 11:57 | Infectious Disease Progress Nt ---
Progress Note Date of Service Oct 08, 2016. Subjective Pt evaluation today including: conversation w/ patient, conversation w/ family , physical exam, chart review, lab review, review of studies, conversation w/ urban design consultant (Dr. Chairez), review of inpatient medication list Patient is very lethargic this morning after dialysis. She is slightly nauseated as well. She states that overall her sinuses are feeling better, and she has less pain and drainage today. She continues to cough. C. Diff toxin was negative. Repeat blood cultures drawn and are showing NGTD. CT of sinuses showed minimal mucosal thickening and soft tissue occlusion of left ostiomeatal unit and narrowing of right. Chest CT showed bibasilar parenchymal infiltrates with consolidative changes of left lung base and minimal consolidative changes of right lung base. States that her neck pain is also improved today. All Other Systems: Reviewed and Negative Medications Current Inpatient Medications Medications (Trade) Dose Ordered Sig/Sheela Route Start Time Stop Time Status Last Admin Dose Admin Acetaminophen (Tylenol Tab) 1,000 mg Q8 PRN PO 10/02/16 01:00 11/01/16 00:59 10/07/16 19:07 1,000 MG Amiodarone HCl (Cordarone Tab) 200 mg BID PO 10/02/16 09:00 11/01/16 08:59 10/08/16 10:46 200 MG Amlodipine Besylate (Norvasc Tab) 5 mg QAM PO 10/02/16 09:00 11/01/16 08:59 10/08/16 10:44 5 MG Atorvastatin Calcium (Lipitor Tab) 40 mg QAM PO 10/02/16 09:00 11/01/16 08:59 10/08/16 10:44 40 MG Calcium Acetate (Phoslo Cap) 667 mg TIDM PO 10/02/16 08:00 11/01/16 07:59 10/08/16 10:44 667 MG Clopidogrel Bisulfate (plAVix TAB) 75 mg QAM PO 10/02/16 09:00 11/01/16 08:59 10/08/16 10:43 75 MG Docusate Sodium (coLACE CAP) 100 mg BID PO 10/02/16 09:00 11/01/16 08:59 10/06/16 21:24 100 MG Gemfibrozil (Lopid Tab) 600 mg BID PO 10/02/16 09:00 11/01/16 08:59 10/08/16 10:46 600 MG Isosorbide Mononitrate (Imdur Ext Rel Tab) 60 mg QAM PO 10/02/16 09:00 11/01/16 08:59 10/08/16 10:44 60 MG Metoprolol Tartrate (Lopressor Tab) 100 mg BID PO 10/02/16 09:00 11/01/16 08:59 10/08/16 10:42 100 MG Pregabalin (Lyrica Cap) 25 mg BID PO 10/02/16 09:00 11/01/16 08:59 10/08/16 10:43 25 MG Tramadol HCl (Ultram Tab) 50 mg Q4H PRN PO 10/02/16 01:00 11/01/16 00:59 10/07/16 22:31 50 MG Zolpidem Tartrate (Ambien Tab) 5 mg HS PRN PO 10/02/16 01:00 11/01/16 00:59 Vitamin B Complex (Vitamin B Complex) 1 tab QAM PO 10/02/16 09:00 11/01/16 08:59 10/08/16 10:43 1 TAB Ondansetron HCl (Zofran Inj) 4 mg Q6H PRN IV 10/02/16 01:00 11/01/16 00:59 10/04/16 06:21 4 MG Insulin Aspart (novoLOG ASPART) SLIDING SCALE If C... ACHS SC 10/02/16 06:30 11/01/16 06:59 10/08/16 11:50 1 UNITS Glucose (Glucose 40% Gel) UD PRN PO 10/02/16 01:00 11/01/16 00:59 Glucose (Glucose Chew Tab) 1 tabs UD PRN PO 10/02/16 01:00 11/01/16 00:59 Dextrose (Dextrose 50% 50ML Syringe) 50 ml UD PRN IV 10/02/16 01:00 11/01/16 00:59 Glucagon (Glucagon Inj) 1 mg UD PRN SQ 10/02/16 01:00 11/01/16 00:59 Guaifenesin (Organidin Nr Tab) 600 mg BID PO 10/02/16 09:00 11/01/16 08:59 10/08/16 10:43 600 MG Budesonide (Pulmicort Respules 0.5MG/ 2ML Neb Soln) 0.5 mg BIDR INH 10/02/16 08:00 11/01/16 07:59 10/07/16 19:44 0.5 MG Levofloxacin (Consult) 1 ea UD PRN N/A 10/02/16 02:30 10/11/16 23:59 Hydralazine HCl (HydrALAZINE INJ) 10 mg Q4H PRN IV. 10/02/16 13:15 11/01/16 13:14 10/02/16 14:34 10 MG Furosemide (Lasix Tab) 40 mg BID17 PO 10/02/16 17:00 11/01/16 16:59 10/08/16 10:45 40 MG Heparin Sodium (Porcine) (Heparin Sq 5000 Unit/0.5ml) 5,000 unit Q8 SQ 10/02/16 22:00 11/01/16 21:59 10/08/16 05:47 5,000 UNIT Pantoprazole Sodium (Protonix Tab) 40 mg QAM PO 10/03/16 09:00 11/02/16 08:59 10/08/16 10:42 40 MG Benzonatate (Tessalon Perles Cap) 100 mg TID PRN PO 10/04/16 13:30 11/03/16 13:29 10/05/16 08:48 100 MG Levofloxacin (Levaquin Tab) 250 mg Q48H PO 10/06/16 09:00 10/11/16 23:59 10/08/16 10:43 250 MG Epoetin Jan (Procrit Inj) 10,000 units TuThSa@1600 IV. 10/06/16 16:00 11/05/16 15:59 10/06/16 18:36 10,000 UNITS Albuterol/ Ipratropium (Duoneb) 3 ml QIDR INH 10/06/16 16:00 11/05/16 15:59 10/07/16 19:44 3 ML Albuterol/ Ipratropium (Duoneb) 3 ml Q2R PRN INH 10/06/16 13:15 11/05/16 13:14 Piperacillin Sod/ Tazobactam Sod 1 ea 1 ea UD PRN N/A 10/06/16 18:15 10/11/16 23:59 Piperacillin Sod/ Tazobactam Sod/ Dextrose (Zosyn Iv/D5 100ml) 120 ml @ 30 mls/hr Q12H IV 10/07/16 02:00 10/11/16 23:59 10/08/16 10:47 30 MLS/HR Insulin Glargine (Lantus Solostar Pen) 40 unit QPM SQ 10/07/16 21:00 11/06/16 20:59 10/07/16 21:10 40 UNIT Heparin Sodium (Porcine) (Heparin Iv Bolus) 1,000 unit Q1H IV 10/08/16 10:00 10/08/16 12:01 Objective Vital Signs Date Time Temp Pulse Resp B/P Pulse Ox O2 Delivery O2 Flow Rate FiO2 10/08/16 11:33 Nasal Cannula 2.0 10/08/16 10:30 36.7 68 18 164/66 96 Nasal Cannula 2.0 10/08/16 09:37 36.9 68 181/79 10/08/16 09:30 65 162/65 10/08/16 09:15 65 156/69 10/08/16 09:00 65 175/80 10/08/16 08:45 62 174/100 10/08/16 08:30 63 159/63 10/08/16 08:15 65 162/95 10/08/16 08:00 60 181/74 10/08/16 07:45 60 173/73 10/08/16 07:30 76 171/73 10/08/16 07:15 71 171/82 10/08/16 07:00 75 188/89 10/08/16 06:45 77 175/73 10/08/16 06:30 59 173/71 10/08/16 06:15 61 158/72 10/08/16 06:00 61 177/68 10/08/16 05:55 36.8 61 169/69 10/08/16 04:00 Nasal Cannula 2.0 10/08/16 04:00 36.7 59 20 124/69 93 2.0 10/08/16 00:00 36.5 68 20 117/62 92 2.0 10/08/16 00:00 Nasal Cannula 2.0 10/07/16 21:05 70 127/61 10/07/16 20:00 Nasal Cannula 3.0 10/07/16 19:54 37.1 65 20 130/66 93 3.0 10/07/16 19:52 37.1 68 18 147/72 93 Room Air 3.0 10/07/16 19:44 61 20 95 Nasal Cannula 4.0 10/07/16 16:00 Nasal Cannula 3.0 10/07/16 15:41 61 20 94 Nasal Cannula 4.0 10/07/16 15:13 36.9 60 18 105/50 98 Nasal Cannula 4.0 10/07/16 12:00 Nasal Cannula 4.0 Physical Exam General Appearance: + mild distress, + obese Eyes: normal inspection, sclerae normal ENT: hearing grossly normal Neck: supple, trachea midline Respiratory/Chest: no respiratory distress, no accessory muscle use Cardiovascular: + pertinent finding (regular rate) Neurologic/Psychiatric: alert, normal mood/affect Skin: normal color, warm/dry, no rash Laboratory Results SINUS CT CT DOSE: HISTORY: Pain suspect sinusitis, neck pain and stiffness TECHNIQUE: Multiaxial CT images of the paranasal sinuses were performed and reformatted in the coronal plane without the use of contrast. COMPARISON: None. FINDINGS: Mild mucosal thickening of the sphenoid and maxillary sinuses. Soft tissue occlusion of the left ostiomeatal unit. High-grade soft tissue narrowing right ostiomeatal unit. Nasal turbinates appear symmetric. Slight hyperplastic change anterior right nasal turbinates. Frontal sinuses are clear. Osseous structures are negative for a lytic or blastic process. The mastoid air cells are clear. The nasal septum is midline. The orbits are unremarkable. IMPRESSION: Minimal scattered mucosal thickening. Soft tissue occlusion left ostiomeatal unit. Soft tissue narrowing on the right. CHEST CT WITHOUT CONTRAST CT DOSE: 1808.66 mGy.cm HISTORY: Dyspnea pneumonia, further evaluate, spiking fevers TECHNIQUE: Multiaxial CT images of the chest were performed without contrast. COMPARISON: None. FINDINGS: Bibasilar parenchymal infiltrates. There are consolidative changes left lung base with a small left effusion. There are minimal consolidative changes right base. Mid and upper lungs are considered clear. Several small reactive mediastinal and/or hilar nodes. Moderate cardiomegaly. Several small hepatic cysts. Mild hyperplastic change of the left adrenal. IMPRESSION: Consolidative left and to a lesser extent right basilar infiltrative change. Trace left basilar pleural effusion Item Value Date Time C.difficile Toxin B Gene (PCR) - Final Complete 10/07/16 1230 Stool No C. difficile toxin B gene detected Blood Culture - Preliminary Resulted 10/06/162027 Blood NO GROWTH TO DATE. Blood Culture - Preliminary Resulted 10/06/162021 Blood NO GROWTH TO DATE. Last 24 Hours Test 10/07/16 15:14 10/07/16 16:08 10/07/16 20:02 10/08/16 04:44 Bedside Glucose 131 mg/dl 124 mg/dl 172 mg/dl Test 10/08/16 07:28 10/08/16 10:27 Bedside Glucose 97 mg/dl 97 mg/dl Assessment and Plan Diabetic female with recent history of right BKA and now RLL pneumonia, possible left lower lobe pneumonia, and sinusitis. She is currently on PO Levaquin IV Zosyn. Patient appears to be improving slowly. Will continue IV therapy for now pending further improvement. We will follow. Case reviewed and agree with above assessment.
[2016-10-08 12:07] LABS: MEAN CELL VOLUME 92.2 fL (80-100); MEAN CORPUSCULAR HEMOGLOBIN 31.7 pg (25-34); MEAN CORPUSCULAR HGB CONC 34.4 g/dl (32-36); MEAN PLATELET VOLUME 9.4 fL (7.4-10.4); PLATELET COUNT 257 K/uL (130-400); RED BLOOD COUNT 2.93 M/uL (4.2-5.4); WHITE BLOOD COUNT 8.74 K/uL (4.8-10.8)
--- NOTE | 2016-10-08 12:40 | Dialysis Progress Note ---
Hemodialysis Note Date of Service Oct 08, 2016. Chief Complaint ESRD Subjective No acute events overnight. Umu was seen and evaluated during hemodialysis this morning. She tolerated the procedure well. Net UF 4 kg. Blood pressure appropriate. Qb at goal. Umu denies any shortness of breath. She has not been ambulating regularly. She continues to expect discharge home once stable. She has not experienced any fevers or chills in the past 24 hours. She reports mild sinus tenderness. She has an occasional cough. Overall, she feels well. Review of Systems A complete review of systems was performed. Pertinent positives are noted above. All other systems are negative. Vital Signs Last 8 Hrs Date Time Temp Pulse Resp B/P Pulse Ox O2 Delivery O2 Flow Rate FiO2 10/08/16 11:33 Nasal Cannula 2.0 10/08/16 10:30 36.7 68 18 164/66 96 Nasal Cannula 2.0 10/08/16 09:37 36.9 68 181/79 10/08/16 09:30 65 162/65 10/08/16 09:15 65 156/69 10/08/16 09:00 65 175/80 10/08/16 08:45 62 174/100 10/08/16 08:30 63 159/63 10/08/16 08:15 65 162/95 10/08/16 08:00 60 181/74 10/08/16 07:45 60 173/73 10/08/16 07:30 76 171/73 10/08/16 07:15 71 171/82 10/08/16 07:00 75 188/89 10/08/16 06:45 77 175/73 10/08/16 06:30 59 173/71 10/08/16 06:15 61 158/72 10/08/16 06:00 61 177/68 10/08/16 05:55 36.8 61 169/69 I & O 24-Hour Column 10/08/16 08:00 Intake Total 1379 ml Balance 1379 ml Last Recorded Weight Weight (Kilograms): 102.400 Physical Exam General Appearance: WD/WN, no apparent distress Head: normocephalic, atraumatic Eyes: normal inspection, sclerae normal ENT: normal ENT inspection, pharynx normal Neck: supple, no JVD Respiratory/Chest: lungs clear, no respiratory distress, no accessory muscle use Cardiovascular: regular rate, rhythm, no gallop, + systolic murmur Abdomen/GI: non tender, soft Extremities/Musculoskelatal: normal inspection, + pedal edema, + pertinent finding (AVF with thrill and bruit) Neurologic/Psych: alert, oriented x 3 Social History Smoking Status: Unknown if ever smoked Smokeless Tobacco Use: No Alcohol Use: none Drug Use: none Marital Status: Housing Status: lives with family Occupation: retired Laboratory Results Past 24 Hours 10/08/16 11:30 Test 10/07/16 15:14 10/07/16 16:08 10/07/16 20:02 10/08/16 07:28 Bedside Glucose 131 mg/dl (70-90) 124 mg/dl (70-90) 172 mg/dl (70-90) 97 mg/dl (70-90) Test 10/08/16 10:27 10/08/16 11:30 Bedside Glucose 97 mg/dl (70-90) Red Blood Count 2.93 M/uL (4.2-5.4) Mean Corpuscular Volume 92.2 fL (80-100) Mean Corpuscular Hemoglobin 31.7 pg (25-34) Mean Corpuscular Hemoglobin Concent 34.4 g/dl (32-36) RDW Standard Deviation 53.9 fL (36.4-46.3) RDW Coefficient of Variation 15.9 % (11.5-14.5) Mean Platelet Volume 9.4 fL (7.4-10.4) Allergies Coded Allergies: No Known Allergies (Verified , 07/08/16) Medications Current Inpatient Medications Medications (Trade) Dose Ordered Sig/Sheela Route Start Time Stop Time Status Last Admin Dose Admin Acetaminophen (Tylenol Tab) 1,000 mg Q8 PRN PO 10/02/16 01:00 11/01/16 00:59 10/07/16 19:07 1,000 MG Amiodarone HCl (Cordarone Tab) 200 mg BID PO 10/02/16 09:00 11/01/16 08:59 10/08/16 10:46 200 MG Amlodipine Besylate (Norvasc Tab) 5 mg QAM PO 10/02/16 09:00 11/01/16 08:59 10/08/16 10:44 5 MG Atorvastatin Calcium (Lipitor Tab) 40 mg QAM PO 10/02/16 09:00 11/01/16 08:59 10/08/16 10:44 40 MG Calcium Acetate (Phoslo Cap) 667 mg TIDM PO 10/02/16 08:00 11/01/16 07:59 10/08/16 10:44 667 MG Clopidogrel Bisulfate (plAVix TAB) 75 mg QAM PO 10/02/16 09:00 11/01/16 08:59 10/08/16 10:43 75 MG Docusate Sodium (coLACE CAP) 100 mg BID PO 10/02/16 09:00 11/01/16 08:59 10/06/16 21:24 100 MG Gemfibrozil (Lopid Tab) 600 mg BID PO 10/02/16 09:00 11/01/16 08:59 10/08/16 10:46 600 MG Isosorbide Mononitrate (Imdur Ext Rel Tab) 60 mg QAM PO 10/02/16 09:00 11/01/16 08:59 10/08/16 10:44 60 MG Metoprolol Tartrate (Lopressor Tab) 100 mg BID PO 10/02/16 09:00 11/01/16 08:59 10/08/16 10:42 100 MG Pregabalin (Lyrica Cap) 25 mg BID PO 10/02/16 09:00 11/01/16 08:59 10/08/16 10:43 25 MG Tramadol HCl (Ultram Tab) 50 mg Q4H PRN PO 10/02/16 01:00 11/01/16 00:59 10/07/16 22:31 50 MG Zolpidem Tartrate (Ambien Tab) 5 mg HS PRN PO 10/02/16 01:00 11/01/16 00:59 Vitamin B Complex (Vitamin B Complex) 1 tab QAM PO 10/02/16 09:00 11/01/16 08:59 10/08/16 10:43 1 TAB Ondansetron HCl (Zofran Inj) 4 mg Q6H PRN IV 10/02/16 01:00 11/01/16 00:59 10/04/16 06:21 4 MG Insulin Aspart (novoLOG ASPART) SLIDING SCALE If C... ACHS SC 10/02/16 06:30 11/01/16 06:59 10/08/16 11:50 1 UNITS Glucose (Glucose 40% Gel) UD PRN PO 10/02/16 01:00 11/01/16 00:59 Glucose (Glucose Chew Tab) 1 tabs UD PRN PO 10/02/16 01:00 11/01/16 00:59 Dextrose (Dextrose 50% 50ML Syringe) 50 ml UD PRN IV 10/02/16 01:00 11/01/16 00:59 Glucagon (Glucagon Inj) 1 mg UD PRN SQ 10/02/16 01:00 11/01/16 00:59 Guaifenesin (Organidin Nr Tab) 600 mg BID PO 10/02/16 09:00 11/01/16 08:59 10/08/16 10:43 600 MG Budesonide (Pulmicort Respules 0.5MG/ 2ML Neb Soln) 0.5 mg BIDR INH 10/02/16 08:00 11/01/16 07:59 10/07/16 19:44 0.5 MG Levofloxacin (Consult) 1 ea UD PRN N/A 10/02/16 02:30 10/11/16 23:59 Hydralazine HCl (HydrALAZINE INJ) 10 mg Q4H PRN IV. 10/02/16 13:15 11/01/16 13:14 10/02/16 14:34 10 MG Furosemide (Lasix Tab) 40 mg BID17 PO 10/02/16 17:00 11/01/16 16:59 10/08/16 10:45 40 MG Heparin Sodium (Porcine) (Heparin Sq 5000 Unit/0.5ml) 5,000 unit Q8 SQ 10/02/16 22:00 11/01/16 21:59 10/08/16 05:47 5,000 UNIT Pantoprazole Sodium (Protonix Tab) 40 mg QAM PO 10/03/16 09:00 11/02/16 08:59 10/08/16 10:42 40 MG Benzonatate (Tessalon Perles Cap) 100 mg TID PRN PO 10/04/16 13:30 11/03/16 13:29 10/05/16 08:48 100 MG Levofloxacin (Levaquin Tab) 250 mg Q48H PO 10/06/16 09:00 10/11/16 23:59 10/08/16 10:43 250 MG Epoetin Jan (Procrit Inj) 10,000 units TuThSa@1600 IV. 10/06/16 16:00 11/05/16 15:59 10/06/16 18:36 10,000 UNITS Albuterol/ Ipratropium (Duoneb) 3 ml QIDR INH 10/06/16 16:00 11/05/16 15:59 10/07/16 19:44 3 ML Albuterol/ Ipratropium (Duoneb) 3 ml Q2R PRN INH 10/06/16 13:15 11/05/16 13:14 Piperacillin Sod/ Tazobactam Sod 1 ea 1 ea UD PRN N/A 10/06/16 18:15 10/11/16 23:59 Piperacillin Sod/ Tazobactam Sod/ Dextrose (Zosyn Iv/D5 100ml) 120 ml @ 30 mls/hr Q12H IV 10/07/16 02:00 10/11/16 23:59 10/08/16 10:47 30 MLS/HR Insulin Glargine (Lantus Solostar Pen) 40 unit QPM SQ 10/07/16 21:00 11/06/16 20:59 10/07/16 21:10 40 UNIT Impression (1) ESRD on dialysis (2) Hypoxia (3) Anemia (4) Hx of right BKA (5) Hypertension (6) Diabetes mellitus (7) Pneumonia Umu is a 66-year-old female with 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 Umu was admitted to [facility] with fevers and shaking chills due to pneumonia. Chest x-ray documenting pulmonary congestion and right lower lobe infiltrate. Blood cultures negative. Fevers persistent. CT chest and sinuses obtained yesterday consistent with resolving pneumonia and possible sinusitis. Recently had right BKA, and had been at [facility]. PMH also significant for HTN, DM and chronic diabetic ulcer, osteomyelitis and BKA. Recommendations ESRD: -- HD TTS; UF 4 kg today -- Qb via AVF appropriate -- Renal diet -- Medications appropriately dosed for renal function. Vanco and zosyn per pharmacy -- Continue furosemide 40 mg twice daily -- Continue Phoslo QAC Anemia -- Epogen 37810 units QHD -- Monitor CBC QTTS Pneumonia/sinusitis: -- Discussed plan of care with Dr. Chairez today -- ID consult appreciated PVD/BKA: -- PT and dispo home when ready -- Medications appropriate for renal function
[2016-10-08 13:31] LABS: BUN/CREATININE RATIO 3.7 (10-20); CREATININE 3.6 mg/dl (0.60-1.20); POTASSIUM 3.8 mmol/L (3.5-5.1)
[2016-10-08 15:16] LABS: CALCIUM 9.5 mg/dl (8.5-10.1)
[2016-10-08] MEDS: INSULIN GLARGINE SOLOSTAR 100 UNITS/ML 3 ML PEN SQ SCH (20:51)
[2016-10-09] VITALS (11 sets, daily range): BP systolic 120–137; BP diastolic 68–78; PULSE 57–87; TEMP 36.4–37.5; O2SAT 90–100
[2016-10-09] MEDS: ALBUT/IPRATROP 3MG/0.5MG NEB 3 ML VIAL INH SCH ×5 (02:33→18:50)
[2016-10-09] MEDS: PIPERACILL/TAZOBAC IV 4.5 GM in DEXTROSE 5% 100ML IV SCH ×2 (05:34→17:53)
[2016-10-09] MEDS: HEPARIN SOD 5000 UNIT/0.5 ML CARP SQ SCH ×3 (05:41→20:52)
[2016-10-09 07:42] LABS: BUN/CREATININE RATIO 4.5 (10-20); CALCIUM 8.8 mg/dl (8.5-10.1); CREATININE 5.7 mg/dl (0.60-1.20)
[2016-10-09] MEDS: BUDESONIDE 0.5 MG/2 ML VIAL (PULMICORT) INH SCH (08:00)
[2016-10-09] MEDS: INSULIN ASPART 100 UNITS/ML 3 ML PEN SC SCH ×4 (08:55→20:51)
[2016-10-09] MEDS: CALCIUM ACETATE 667MG GELCAP PO SCH ×3 (08:57→17:12)
[2016-10-09] MEDS: AMIODARONE 200 MG TAB PO SCH ×2 (08:58→20:47)
[2016-10-09] MEDS: FUROSEMIDE 40 MG TAB PO SCH ×2 (08:59→17:12)
[2016-10-09] MEDS: GEMFIBROZIL 600 MG TAB PO SCH ×2 (08:59→20:49)
[2016-10-09] MEDS: ISOSORBIDE MONONITRATE 60 MG TABCR PO SCH (08:59)
[2016-10-09] MEDS: ATORVASTATIN 40 MG TAB PO SCH (09:00)
[2016-10-09] MEDS: DOCUSATE SODIUM 100 MG CAP PO SCH ×2 (09:00→20:48)
[2016-10-09] MEDS: CLOPIDOGREL BISULFATE 75 MG TAB PO SCH (09:01)
[2016-10-09] MEDS: AMLODIPINE BESYLATE 5 MG TAB PO SCH (09:01)
[2016-10-09] MEDS: METOPROLOL TARTRATE 100 MG TAB PO SCH ×2 (09:01→20:46)
[2016-10-09] MEDS: GUAIFENESIN 200 MG TAB PO SCH ×2 (09:02→20:48)
[2016-10-09] MEDS: VITAMIN B COMPLEX TAB PO SCH (09:02)
[2016-10-09] MEDS: PANTOprazole SOD 40 MG TAB PO SCH (09:02)
[2016-10-09] MEDS: ACETAMINOPHEN 500 MG TAB PO PRN (09:04)
[2016-10-09] MEDS: PREGABALIN 25MG CAP PO SCH ×2 (09:19→20:45)
--- NOTE | 2016-10-09 09:34 | Family Medicine Progress Note ---
Progress Note Date of Service Oct 09, 2016. Subjective Pt evaluation today including: conversation w/ patient feels better no events Constitutional: No chills, No fever Respiratory: + cough, + wheezing, No dyspnea on exertion, No shortness of breath Cardiovascular: No chest pain Abdomen: No constipation, No diarrhea, No nausea, No pain, No vomiting Female : No dysuria, No urinary frequency Objective Physical Exam General Appearance: no apparent distress, + obese Eyes: PERRL, EOMI ENT: hearing grossly normal Neck: supple, no adenopathy Respiratory/Chest: no respiratory distress, no accessory muscle use, + decreased breath sounds, + rhonchi, + wheezing Cardiovascular: regular rate, rhythm, no murmur Abdomen: normal bowel sounds, non tender, soft Extremities: non-tender, no calf tenderness, + pertinent finding Neurologic/Psychiatric: alert, oriented x 3, + depressed affect Skin: + pertinent finding (sacral area- without any new areas of skin break down, Old healed scars. ) Assessment and Plan 66-year-old who presented in respiratory distress 2/2 pneumonia and acute CHF exacerbation. She continues to improve slowly. Her oxygen requirement is down to 2 L. She has been afebrile over the last 36+ hours. She does continue to have a cough but her neck pain has improved, with palpable neck tenderness and sinus drainage is minimal today. Shortness of breath 2/2 Pneumonia- improving - CT with Consolidative left and to a lesser extent right basilar infiltrative change. Trace left basilar pleural effusion - on PO Levaquin, and IV Zosyn currently to cover for Pseudomonas and sinusitis - will continue - repeat blood cultures negative - infectious disease recommendations appreciated - no fever or leucocytosis today - continue duonebs, keep xoponex and atrovent - incentive spirometry - Will need 2 step if unable to get off O2 Neck pain/stiffness/Sinus drainage Sinus CT- Minimal scattered mucosal thickening. Soft tissue occlusion left ostiomeatal unit. Soft tissue narrowing on the right. Since she has shown improvement in her symptoms, no need for spinal tap at this time. Sepsis 2/2 pneumonia- resolved Acute on chronic diastolic CHF- improving - The patient receives 40 mg BID by mouth Lasix - Intake and output daily- minimal urine output - Daily weights - AHA, low-sodium diet - Continue home dose of metoprolol - ROSSI inhibitor and ARB, contraindicated with ESRD End-stage renal disease on HD - Dialysis tomorrow - Gets dialysis TTS - Continue I/Os and daily weights - Renally dose medications - receiving epogen - renal diet - continue phoslo - removed 4+ L yesterday with dialysis Left 2nd toe pressure ulcer- not present on admission - Appreciate wound care - no debridement at this time - avoid further pressure ulcers- keep in waffle boot h/o of Sacral ulcers: Re-evaluated, no open areas or skin breakdown. Evidence of previous ulcer scars and surgical scars. dressing in place History of SVT - Continue metoprolol, Amiodarone - no events on tele- sinus in the 60-70's History of coronary artery disease - Continue clopidogrel - Continue metoprolol - Continue imdur Hypertension - Continue amlodipine and metoprolol Insulin-dependent Diabetes mellitus - no further hypoglycemia this morning - lantus at 40 units - Aspart sliding scale Hypercholesterolemia - continue atorvastatin - Continue gemfibrozil Peripheral neuropathy - Continue Lyrica DVT prophylaxis - Heparin subcutaneous 3 times a day Code Status - Level I full code Disposition - med/surg - PT/OT- with prosthesis preferably - Patient refusing to go to [facility]. will return home and continue outpatient physical therapy. - Encourage mobility- nursing staff instructed to help patient OOB Reviewed: Pt Seen/Exam by Me History Resident Physician Supervision Note: I interviewed and examined the patient. Discussed with Dr. Evans and agree with findings and plan as documented in the note. Any exceptions or clarifications are listed here: Feeling the best she has since admission, sitting in a chair today. She ambulated with her prosthetic on out in the hallways and felt great. Still with some cough, neck pain is less. Vitals reviewed, afebrile Morbidly obese, no acute distress, sitting in chair, looks perky Regular rate and rhythm, no murmurs gallops or rubs Clear to auscultation today except decreased breath sounds at the left base with crackles Abdomen-positive bowel sounds, soft, nontender, large completely reducible ventral hernia Extremities-right BKA, left leg with trace pitting edema 66-year-old female with complex medical history, here with sepsis and pneumonia , possible acute sinusitis. She continues to improve since adding Zosyn back on to her regimen for pneumonia and sinusitis. Chest CT confirms bilat PNA, CT sinuses with obstruction and narrowing of bilat OM complexes, and some chronic sinusitis findings, no signs of invasion into meninges. -Continue Levaquin (day #8/10) renally dosed, added back Zosyn again (day#10/05) to double cover in case of resistant Pseudomonas and for anaerobic coverage given recent prolonged hospital and rehabilitation stays--> discussed case with infectious disease PA . No concern for meningitis at this point. MRSA swab negative so no Vanco needed. Had some loose stools but C. difficile antigen is negative -follow Repeat blood cultures -continue nebulizers -Appreciate wound care consultation -Continue dialysis on Tuesdays and Saturdays, appreciate nephrology management -We'll need to step prior to discharge to determine need for home oxygen -Considering discharge to home tomorrow if continues to improve-could send out on Augmentin and Levaquin as per discussion with ID Documented By: Zakiya Chairez
--- NOTE | 2016-10-09 09:57 | Nephrology Progress Note ---
Nephrology Progress Note Date of Service Oct 09, 2016. Chief Complaint Follow up evaluation of this patient w/ ESRD on HD admitted w/ pneumonia Subjective Mrs. Bennett was seen & examined in her hospital room this morning. She was last dialyzed yesterday. She dialyzed for 3.5 hrs w/ net 4 L UF. There were no complications recorded in the RN notes. Mrs. Bennett reports that her pneumonia is resolving. She still has a cough productive of a scant amount of sputum. Her dyspnea has resolved. She hopes to be discharged to home when medically stable. She has been fitted w/ a right leg prosthesis and indicates that she is able to ambulate using the device. Review of Systems Constitutional: No fever Cardiovascular: No chest pain Respiratory: No dyspnea at rest Abdomen: No nausea, No pain, No vomiting Extremities: No leg edema A complete review of systems was performed. Pertinent positives are noted above. All other systems are negative. Vital Signs Last 8 Hrs Date Time Temp Pulse Resp B/P Pulse Ox O2 Delivery O2 Flow Rate FiO2 10/09/16 08:02 36.7 61 16 133/78 98 10/09/16 07:25 84 20 92 Nasal Cannula 2.0 10/09/16 04:45 37.5 66 18 137/74 95 2.0 10/09/16 04:00 Nasal Cannula 2.0 10/09/16 02:33 76 20 90 Nasal Cannula 2.0 I & O 24-Hour Column 10/09/16 08:00 Intake Total 350 ml Output Total 4000 ml Balance -3650 ml Last Recorded Weight Weight (Kilograms): 102.400 Physical Exam General Appearance: no apparent distress Head: normocephalic, atraumatic Eyes: PERRL, EOMI Neck: no adenopathy Respiratory/Chest: + crackles (L base) Cardiovascular: regular rate, rhythm Abdomen/GI: normal bowel sounds, non tender, soft Extremities/Musculoskelatal: no calf tenderness, no pedal edema Neurologic/Psych: alert, oriented x 3 Family History FHx: musculoskeletal disease Social History Smoking Status: Unknown if ever smoked Smokeless Tobacco Use: No Alcohol Use: none Drug Use: none Marital Status: Housing Status: lives with family Occupation: retired Laboratory Results Past 24 Hours 10/08/16 11:30 10/08/16 11:30 10/09/16 06:31 Test 10/08/16 10:27 10/08/16 11:30 10/08/16 16:24 10/08/16 20:37 Bedside Glucose 97 mg/dl (70-90) 168 mg/dl (70-90) 198 mg/dl (70-90) Red Blood Count 2.93 M/uL (4.2-5.4) Mean Corpuscular Volume 92.2 fL (80-100) Mean Corpuscular Hemoglobin 31.7 pg (25-34) Mean Corpuscular Hemoglobin Concent 34.4 g/dl (32-36) RDW Standard Deviation 53.9 fL (36.4-46.3) RDW Coefficient of Variation 15.9 % (11.5-14.5) Mean Platelet Volume 9.4 fL (7.4-10.4) Anion Gap 11.0 mmol/L (3-11) Est Creatinine Clear Calc Drug Dose 18.0 ml/min Estimated GFR () 14.3 Estimated GFR (Non- 12.4 BUN/Creatinine Ratio 3.7 (10-20) Calcium Level 9.5 mg/dl (8.5-10.1) Random Vancomycin Level 11.8 mcg/ml Test 10/09/16 06:31 10/09/16 07:46 Anion Gap 10.0 mmol/L (3-11) Est Creatinine Clear Calc Drug Dose 11.4 ml/min Estimated GFR () 8.2 Estimated GFR (Non- 7.1 BUN/Creatinine Ratio 4.5 (10-20) Calcium Level 8.8 mg/dl (8.5-10.1) Bedside Glucose 98 mg/dl (70-90) Allergies Coded Allergies: No Known Allergies (Verified , 07/08/16) Medications Current Inpatient Medications Medications (Trade) Dose Ordered Sig/Sheela Route Start Time Stop Time Status Last Admin Dose Admin Acetaminophen (Tylenol Tab) 1,000 mg Q8 PRN PO 10/02/16 01:00 11/01/16 00:59 10/09/16 09:04 1,000 MG Amiodarone HCl (Cordarone Tab) 200 mg BID PO 10/02/16 09:00 11/01/16 08:59 10/09/16 08:58 200 MG Amlodipine Besylate (Norvasc Tab) 5 mg QAM PO 10/02/16 09:00 11/01/16 08:59 10/09/16 09:01 5 MG Atorvastatin Calcium (Lipitor Tab) 40 mg QAM PO 10/02/16 09:00 11/01/16 08:59 10/09/16 09:00 40 MG Calcium Acetate (Phoslo Cap) 667 mg TIDM PO 10/02/16 08:00 11/01/16 07:59 10/09/16 08:57 667 MG Clopidogrel Bisulfate (plAVix TAB) 75 mg QAM PO 10/02/16 09:00 11/01/16 08:59 10/09/16 09:01 75 MG Docusate Sodium (coLACE CAP) 100 mg BID PO 10/02/16 09:00 11/01/16 08:59 10/06/16 21:24 100 MG Gemfibrozil (Lopid Tab) 600 mg BID PO 10/02/16 09:00 11/01/16 08:59 10/09/16 08:59 600 MG Isosorbide Mononitrate (Imdur Ext Rel Tab) 60 mg QAM PO 10/02/16 09:00 11/01/16 08:59 10/09/16 08:59 60 MG Metoprolol Tartrate (Lopressor Tab) 100 mg BID PO 10/02/16 09:00 11/01/16 08:59 10/09/16 09:01 100 MG Pregabalin (Lyrica Cap) 25 mg BID PO 10/02/16 09:00 11/01/16 08:59 10/09/16 09:19 25 MG Tramadol HCl (Ultram Tab) 50 mg Q4H PRN PO 10/02/16 01:00 11/01/16 00:59 10/07/16 22:31 50 MG Zolpidem Tartrate (Ambien Tab) 5 mg HS PRN PO 10/02/16 01:00 11/01/16 00:59 Vitamin B Complex (Vitamin B Complex) 1 tab QAM PO 10/02/16 09:00 11/01/16 08:59 10/09/16 09:02 1 TAB Ondansetron HCl (Zofran Inj) 4 mg Q6H PRN IV 10/02/16 01:00 11/01/16 00:59 10/04/16 06:21 4 MG Insulin Aspart (novoLOG ASPART) SLIDING SCALE If C... ACHS SC 10/02/16 06:30 11/01/16 06:59 10/09/16 08:55 2 UNITS Glucose (Glucose 40% Gel) UD PRN PO 10/02/16 01:00 11/01/16 00:59 Glucose (Glucose Chew Tab) 1 tabs UD PRN PO 10/02/16 01:00 11/01/16 00:59 Dextrose (Dextrose 50% 50ML Syringe) 50 ml UD PRN IV 10/02/16 01:00 11/01/16 00:59 Glucagon (Glucagon Inj) 1 mg UD PRN SQ 10/02/16 01:00 11/01/16 00:59 Guaifenesin (Organidin Nr Tab) 600 mg BID PO 10/02/16 09:00 11/01/16 08:59 10/09/16 09:02 600 MG Budesonide (Pulmicort Respules 0.5MG/ 2ML Neb Soln) 0.5 mg BIDR INH 10/02/16 08:00 11/01/16 07:59 10/08/16 20:11 0.5 MG Levofloxacin (Consult) 1 ea UD PRN N/A 10/02/16 02:30 10/11/16 23:59 Hydralazine HCl (HydrALAZINE INJ) 10 mg Q4H PRN IV. 10/02/16 13:15 11/01/16 13:14 10/02/16 14:34 10 MG Furosemide (Lasix Tab) 40 mg BID17 PO 10/02/16 17:00 11/01/16 16:59 10/09/16 08:59 40 MG Heparin Sodium (Porcine) (Heparin Sq 5000 Unit/0.5ml) 5,000 unit Q8 SQ 10/02/16 22:00 11/01/16 21:59 10/09/16 05:41 5,000 UNIT Pantoprazole Sodium (Protonix Tab) 40 mg QAM PO 10/03/16 09:00 11/02/16 08:59 10/09/16 09:02 40 MG Benzonatate (Tessalon Perles Cap) 100 mg TID PRN PO 10/04/16 13:30 11/03/16 13:29 10/05/16 08:48 100 MG Levofloxacin (Levaquin Tab) 250 mg Q48H PO 10/06/16 09:00 10/11/16 23:59 10/08/16 10:43 250 MG Epoetin Jan (Procrit Inj) 10,000 units TuThSa@1600 IV. 10/06/16 16:00 11/05/16 15:59 10/06/16 18:36 10,000 UNITS Albuterol/ Ipratropium (Duoneb) 3 ml QIDR INH 10/06/16 16:00 11/05/16 15:59 10/09/16 07:59 3 ML Albuterol/ Ipratropium (Duoneb) 3 ml Q2R PRN INH 10/06/16 13:15 11/05/16 13:14 Piperacillin Sod/ Tazobactam Sod 1 ea 1 ea UD PRN N/A 10/06/16 18:15 10/11/16 23:59 Piperacillin Sod/ Tazobactam Sod/ Dextrose (Zosyn Iv/D5 100ml) 120 ml @ 30 mls/hr Q12H IV 10/07/16 02:00 10/11/16 23:59 10/09/16 05:34 30 MLS/HR Insulin Glargine (Lantus Solostar Pen) 40 unit QPM SQ 10/07/16 21:00 11/06/16 20:59 10/08/16 20:51 40 UNIT Impression (1) ESRD on dialysis (2) Hypoxia (3) Anemia (4) Hx of right BKA (5) Hypertension (6) Diabetes mellitus (7) Pneumonia Mrs. 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 Chest x-ray documenting pulmonary congestion and right lower lobe infiltrate. Blood cultures negative. Fevers persistent. CT chest and sinuses obtained 06/13 c/w resolving pneumonia and sinusitis. Mrs. Bennett recently had right BKA and was at [facility] for fitting of her leg prosthesis. PMH - HTN, AODM, osteomyelitis and R BKA. Recommendations ESRD: -- Will schedule next HD treatment for tomorrow morning -- Medications appropriately dosed for renal function. Vanco and zosyn per pharmacy -- Continue furosemide 40 mg twice daily -- Continue Phoslo QA ANEMIA: -- Epogen 58166 units QHD -- Monitor H&H ID: -- Pneumonia and sinusitis are clinically improved -- 10/07/[address] reports reviewed today -- Antibiotic management as per ID service delivery consultant OTHER: -- Recommend PT for strengthening and use of RLE prosthesis
--- NOTE | 2016-10-09 11:59 | Infectious Disease Progress Nt ---
Progress Note Date of Service Oct 09, 2016. Subjective Pt evaluation today including: conversation w/ patient, conversation w/ family (), physical exam, chart review, lab review, review of studies, conversation w/ mortgage consultant (Dr. Chairez), review of inpatient medication list Patient's creatinine 5.70 today. Glucose has been stable this morning. She has been afebrile. She feels that her sinus drainage and cough have slightly improved. She continues to have very mild pain in her neck but feels that this is posture related. Repeat blood cultures are showing no growth. She is tolerating her abx well. All Other Systems: Reviewed and Negative Medications Current Inpatient Medications Medications (Trade) Dose Ordered Sig/Sheela Route Start Time Stop Time Status Last Admin Dose Admin Acetaminophen (Tylenol Tab) 1,000 mg Q8 PRN PO 10/02/16 01:00 11/01/16 00:59 10/09/16 09:04 1,000 MG Amiodarone HCl (Cordarone Tab) 200 mg BID PO 10/02/16 09:00 11/01/16 08:59 10/09/16 08:58 200 MG Amlodipine Besylate (Norvasc Tab) 5 mg QAM PO 10/02/16 09:00 11/01/16 08:59 10/09/16 09:01 5 MG Atorvastatin Calcium (Lipitor Tab) 40 mg QAM PO 10/02/16 09:00 11/01/16 08:59 10/09/16 09:00 40 MG Calcium Acetate (Phoslo Cap) 667 mg TIDM PO 10/02/16 08:00 11/01/16 07:59 10/09/16 08:57 667 MG Clopidogrel Bisulfate (plAVix TAB) 75 mg QAM PO 10/02/16 09:00 11/01/16 08:59 10/09/16 09:01 75 MG Docusate Sodium (coLACE CAP) 100 mg BID PO 10/02/16 09:00 11/01/16 08:59 10/06/16 21:24 100 MG Gemfibrozil (Lopid Tab) 600 mg BID PO 10/02/16 09:00 11/01/16 08:59 10/09/16 08:59 600 MG Isosorbide Mononitrate (Imdur Ext Rel Tab) 60 mg QAM PO 10/02/16 09:00 11/01/16 08:59 10/09/16 08:59 60 MG Metoprolol Tartrate (Lopressor Tab) 100 mg BID PO 10/02/16 09:00 11/01/16 08:59 10/09/16 09:01 100 MG Pregabalin (Lyrica Cap) 25 mg BID PO 10/02/16 09:00 11/01/16 08:59 10/09/16 09:19 25 MG Tramadol HCl (Ultram Tab) 50 mg Q4H PRN PO 10/02/16 01:00 11/01/16 00:59 10/07/16 22:31 50 MG Zolpidem Tartrate (Ambien Tab) 5 mg HS PRN PO 10/02/16 01:00 11/01/16 00:59 Vitamin B Complex (Vitamin B Complex) 1 tab QAM PO 10/02/16 09:00 11/01/16 08:59 10/09/16 09:02 1 TAB Ondansetron HCl (Zofran Inj) 4 mg Q6H PRN IV 10/02/16 01:00 11/01/16 00:59 10/04/16 06:21 4 MG Insulin Aspart (novoLOG ASPART) SLIDING SCALE If C... ACHS SC 10/02/16 06:30 11/01/16 06:59 10/09/16 08:55 2 UNITS Glucose (Glucose 40% Gel) UD PRN PO 10/02/16 01:00 11/01/16 00:59 Glucose (Glucose Chew Tab) 1 tabs UD PRN PO 10/02/16 01:00 11/01/16 00:59 Dextrose (Dextrose 50% 50ML Syringe) 50 ml UD PRN IV 10/02/16 01:00 11/01/16 00:59 Glucagon (Glucagon Inj) 1 mg UD PRN SQ 10/02/16 01:00 11/01/16 00:59 Guaifenesin (Organidin Nr Tab) 600 mg BID PO 10/02/16 09:00 11/01/16 08:59 10/09/16 09:02 600 MG Budesonide (Pulmicort Respules 0.5MG/ 2ML Neb Soln) 0.5 mg BIDR INH 10/02/16 08:00 11/01/16 07:59 10/09/16 08:00 0.5 MG Levofloxacin (Consult) 1 ea UD PRN N/A 10/02/16 02:30 10/11/16 23:59 Hydralazine HCl (HydrALAZINE INJ) 10 mg Q4H PRN IV. 10/02/16 13:15 11/01/16 13:14 10/02/16 14:34 10 MG Furosemide (Lasix Tab) 40 mg BID17 PO 10/02/16 17:00 11/01/16 16:59 10/09/16 08:59 40 MG Heparin Sodium (Porcine) (Heparin Sq 5000 Unit/0.5ml) 5,000 unit Q8 SQ 10/02/16 22:00 11/01/16 21:59 10/09/16 05:41 5,000 UNIT Pantoprazole Sodium (Protonix Tab) 40 mg QAM PO 10/03/16 09:00 11/02/16 08:59 10/09/16 09:02 40 MG Benzonatate (Tessalon Perles Cap) 100 mg TID PRN PO 10/04/16 13:30 11/03/16 13:29 10/05/16 08:48 100 MG Levofloxacin (Levaquin Tab) 250 mg Q48H PO 10/06/16 09:00 10/11/16 23:59 10/08/16 10:43 250 MG Epoetin Jan (Procrit Inj) 10,000 units TuThSa@1600 IV. 10/06/16 16:00 11/05/16 15:59 Future hold 10/06/16 18:36 10,000 UNITS Albuterol/ Ipratropium (Duoneb) 3 ml QIDR INH 10/06/16 16:00 11/05/16 15:59 10/09/16 11:09 3 ML Albuterol/ Ipratropium (Duoneb) 3 ml Q2R PRN INH 10/06/16 13:15 11/05/16 13:14 Piperacillin Sod/ Tazobactam Sod 1 ea 1 ea UD PRN N/A 10/06/16 18:15 10/11/16 23:59 Piperacillin Sod/ Tazobactam Sod/ Dextrose (Zosyn Iv/D5 100ml) 120 ml @ 30 mls/hr Q12H IV 10/07/16 02:00 10/11/16 23:59 10/09/16 05:34 30 MLS/HR Insulin Glargine (Lantus Solostar Pen) 40 unit QPM SQ 10/07/16 21:00 11/06/16 20:59 10/08/16 20:51 40 UNIT Heparin Sodium (Porcine) (Heparin Iv Bolus) 2,000 unit ONE IV 10/10/16 06:00 10/10/16 06:01 Heparin Sodium (Porcine) (Heparin Iv Bolus) 1,000 unit Q1H IV 10/10/16 06:00 10/10/16 07:01 Epoetin Jan (Procrit Inj) 10,000 units ONE ONCE IV. 10/10/16 06:00 10/10/16 06:01 Objective Vital Signs Date Time Temp Pulse Resp B/P Pulse Ox O2 Delivery O2 Flow Rate FiO2 10/09/16 11:22 36.4 57 16 98 2.0 10/09/16 11:09 59 20 98 Nasal Cannula 2.0 10/09/16 11:03 61 97 10/09/16 10:09 Nasal Cannula 2.0 10/09/16 08:02 36.7 61 16 133/78 98 10/09/16 07:25 84 20 92 Nasal Cannula 2.0 10/09/16 04:45 37.5 66 18 137/74 95 2.0 10/09/16 04:00 Nasal Cannula 2.0 10/09/16 02:33 76 20 90 Nasal Cannula 2.0 10/09/16 00:00 Nasal Cannula 2.0 10/08/16 23:50 37.2 65 18 131/71 93 2.0 10/08/16 20:40 72 118/49 10/08/16 20:10 65 18 90 Room Air 10/08/16 20:00 Nasal Cannula 2.0 10/08/16 19:49 37.1 69 20 132/62 95 Nasal Cannula 2.0 10/08/16 16:33 Nasal Cannula 2.0 10/08/16 16:02 37.2 64 22 116/56 93 Nasal Cannula 2.0 10/08/16 15:30 65 18 96 Nasal Cannula 2.0 Laboratory Results Item Value Date Time Blood Culture - Preliminary Resulted 10/06/162027 Blood NO GROWTH TO DATE. Blood Culture - Preliminary Resulted 10/06/162021 Blood NO GROWTH TO DATE. Last 24 Hours Test 10/08/16 16:24 10/08/16 20:37 10/09/16 06:31 10/09/16 07:46 Bedside Glucose 168 mg/dl 198 mg/dl 98 mg/dl Sodium Level 134 mmol/L Potassium Level 4.0 mmol/L Chloride Level 97 mmol/L Carbon Dioxide Level 27 mmol/L Anion Gap 10.0 mmol/L Blood Urea Nitrogen 26 mg/dl Creatinine 5.70 mg/dl Est Creatinine Clear Calc Drug Dose 11.4 ml/min Estimated GFR () 8.2 Estimated GFR (Non- 7.1 BUN/Creatinine Ratio 4.5 Random Glucose 85 mg/dl Calcium Level 8.8 mg/dl Test 10/09/16 11:17 Bedside Glucose 99 mg/dl Assessment and Plan Diabetic female with recent history of right BKA and now RLL pneumonia, possible left lower lobe pneumonia, and sinusitis. She is currently on PO Levaquin IV Zosyn. Patient appears to be improving slowly. Will continue IV therapy for now pending further improvement. We will follow. Case reviewed and agree with above assessment.
[2016-10-09] MEDS ORDERED: LOPERAMIDE HCL 2 MG CAP PO STA (15:02)
[2016-10-09] MEDS ORDERED: LOPERAMIDE HCL 2 MG CAP PO PRN (15:15)
[2016-10-09] MEDS: INSULIN GLARGINE SOLOSTAR 100 UNITS/ML 3 ML PEN SQ SCH (20:52)
[2016-10-10] VITALS (24 sets, daily range): BP systolic 122–152; BP diastolic 54–80; PULSE 58–71; TEMP 36.3–37; O2SAT 91–99
[2016-10-10] MEDS: PIPERACILL/TAZOBAC IV 4.5 GM in DEXTROSE 5% 100ML IV SCH ×2 (05:11→17:49)
[2016-10-10] MEDS: HEPARIN SOD 5000 UNIT/0.5 ML CARP SQ SCH ×3 (05:32→21:29)
[2016-10-10] MEDS ORDERED: HEPARIN SOD (PORCINE) 1000 UNIT/ML 10 ML VIAL IV SCH ×2 (06:00)
[2016-10-10] MEDS ORDERED: EPOETIN ALFA 10,000 UNITS/ML VIAL IV. ONE (06:00)
[2016-10-10 07:12] LABS: HEMATOCRIT 22.6 % (37-47); MEAN CELL VOLUME 91.5 fL (80-100); MEAN CORPUSCULAR HEMOGLOBIN 31.6 pg (25-34); MEAN CORPUSCULAR HGB CONC 34.5 g/dl (32-36); MEAN PLATELET VOLUME 9.2 fL (7.4-10.4); PLATELET COUNT 253 K/uL (130-400); RED BLOOD COUNT 2.47 M/uL (4.2-5.4); WHITE BLOOD COUNT 8.19 K/uL (4.8-10.8)
[2016-10-10] MEDS: DOCUSATE SODIUM 100 MG CAP PO SCH ×2 (07:26→21:00)
[2016-10-10] MEDS: VITAMIN B COMPLEX TAB PO SCH (07:26)
[2016-10-10] MEDS: CALCIUM ACETATE 667MG GELCAP PO SCH ×3 (07:26→16:59)
[2016-10-10] MEDS: GUAIFENESIN 200 MG TAB PO SCH ×2 (07:27→21:13)
[2016-10-10] MEDS: PANTOprazole SOD 40 MG TAB PO SCH (07:27)
[2016-10-10] MEDS: ALBUT/IPRATROP 3MG/0.5MG NEB 3 ML VIAL INH SCH ×4 (07:32→19:05)
[2016-10-10] MEDS: BUDESONIDE 0.5 MG/2 ML VIAL (PULMICORT) INH SCH (07:32)
[2016-10-10] MEDS: INSULIN ASPART 100 UNITS/ML 3 ML PEN SC SCH ×4 (07:33→21:18)
[2016-10-10 07:57] LABS: BUN/CREATININE RATIO 5.5 (10-20); CALCIUM 8.6 mg/dl (8.5-10.1); CREATININE 7.8 mg/dl (0.60-1.20); POTASSIUM 4.3 mmol/L (3.5-5.1)
[2016-10-10 08:08] LABS: BASO ABS # 0.08 K/uL (0-0.2); COMPLETE YES; EOS % 3.3 %; LYMPH ABS # 0.98 K/uL (1.2-3.4); MONO % 14.3 %; NEUT % 67.4 %; POLYCHROMASIA 1+
--- NOTE | 2016-10-10 10:40 | Nephrology Progress Note ---
Nephrology Progress Note Date of Service Oct 10, 2016. Chief Complaint Follow up evaluation of this patient w/ ESRD on HD admitted w/ pneumonia Subjective Mrs. Bennett was seen & examined while on HD this morning. She reports that she has been afebrile. Her breathing is subjectively improved. She denies overt blood loss. She denies any complications w/ her current HD treatment. She hopes to be discharged to home when medically stable. She has been fitted w/ a right leg prosthesis and indicates that she is able to ambulate using the device. Review of Systems Constitutional: No fever Cardiovascular: No chest pain Respiratory: No dyspnea at rest Abdomen: No nausea, No pain, No vomiting Extremities: No leg edema A complete review of systems was performed. Pertinent positives are noted above. All other systems are negative. Vital Signs Last 8 Hrs Date Time Temp Pulse Resp B/P Pulse Ox O2 Delivery O2 Flow Rate FiO2 10/10/16 08:00 Nasal Cannula 2.0 10/10/16 07:37 36.3 59 125/67 94 10/10/16 07:32 63 18 94 Nasal Cannula 2.0 10/10/16 04:16 37.0 60 18 127/62 93 Nasal Cannula 2.0 10/10/16 04:00 Nasal Cannula 2.0 I & O 24-Hour Column 10/10/16 08:00 Intake Total 1240 ml Balance 1240 ml Last Recorded Weight Weight (Kilograms): 101.400 Physical Exam General Appearance: no apparent distress Head: normocephalic, atraumatic Eyes: PERRL, EOMI Neck: no adenopathy Respiratory/Chest: lungs clear, normal breath sounds Cardiovascular: regular rate, rhythm Abdomen/GI: normal bowel sounds, non tender, soft Extremities/Musculoskelatal: no calf tenderness, no pedal edema Neurologic/Psych: alert, oriented x 3 Family History FHx: musculoskeletal disease Social History Smoking Status: Unknown if ever smoked Smokeless Tobacco Use: No Alcohol Use: none Drug Use: none Marital Status: Housing Status: lives with family Occupation: retired Laboratory Results Past 24 Hours 10/10/16 06:51 Red Blood Count 2.47, Mean Corpuscular Volume 91.5, Mean Corpuscular Hemoglobin 31.6, Mean Corpuscular Hemoglobin Concent 34.5, Mean Platelet Volume 9.2, Neutrophils (%) (Auto) 67.4, Lymphocytes (%) (Auto) 12.0, Monocytes (%) (Auto) 14.3, Eosinophils (%) (Auto) 3.3, Basophils (%) (Auto) 1.0, Neutrophils # (Auto ) 5.53, Lymphocytes # (Auto) 0.98, Monocytes # (Auto) 1.17, Eosinophils # (Auto ) 0.27, Basophils # (Auto) 0.08 10/10/16 06:51 Test 10/09/16 11:17 10/09/16 16:21 10/09/16 20:19 10/10/16 06:51 Bedside Glucose 99 mg/dl (70-90) 170 mg/dl (70-90) 180 mg/dl (70-90) White Blood Count 8.19 K/uL (4.8-10.8) Red Blood Count 2.47 M/uL (4.2-5.4) Hemoglobin 7.8 g/dL (12.0-16.0) Hematocrit 22.6 % (37-47) Mean Corpuscular Volume 91.5 fL (80-100) Mean Corpuscular Hemoglobin 31.6 pg (25-34) Mean Corpuscular Hemoglobin Concent 34.5 g/dl (32-36) Platelet Count 253 K/uL (130-400) Mean Platelet Volume 9.2 fL (7.4-10.4) Neutrophils (%) (Auto) 67.4 % Lymphocytes (%) (Auto) 12.0 % Monocytes (%) (Auto) 14.3 % Eosinophils (%) (Auto) 3.3 % Basophils (%) (Auto) 1.0 % Neutrophils # (Auto) 5.53 K/uL (1.4-6.5) Lymphocytes # (Auto) 0.98 K/uL (1.2-3.4) Monocytes # (Auto) 1.17 K/uL (0.11-0.59) Eosinophils # (Auto) 0.27 K/uL (0-0.5) Basophils # (Auto) 0.08 K/uL (0-0.2) RDW Standard Deviation 54.0 fL (36.4-46.3) RDW Coefficient of Variation 16.0 % (11.5-14.5) Immature Granulocyte % (Auto) 2.0 % Immature Granulocyte # (Auto) 0.16 K/uL (0.00-0.02) Polychromasia 1+ Anion Gap 13.0 mmol/L (3-11) Est Creatinine Clear Calc Drug Dose 8.3 ml/min Estimated GFR () 5.6 Estimated GFR (Non- 4.9 BUN/Creatinine Ratio 5.5 (10-20) Calcium Level 8.6 mg/dl (8.5-10.1) Test 10/10/16 07:24 Bedside Glucose 105 mg/dl (70-90) Allergies Coded Allergies: No Known Allergies (Verified , 07/08/16) Medications Current Inpatient Medications Medications (Trade) Dose Ordered Sig/Sheela Route Start Time Stop Time Status Last Admin Dose Admin Acetaminophen (Tylenol Tab) 1,000 mg Q8 PRN PO 10/02/16 01:00 11/01/16 00:59 10/09/16 09:04 1,000 MG Amiodarone HCl (Cordarone Tab) 200 mg BID PO 10/02/16 09:00 11/01/16 08:59 10/09/16 20:47 200 MG Amlodipine Besylate (Norvasc Tab) 5 mg QAM PO 10/02/16 09:00 11/01/16 08:59 10/09/16 09:01 5 MG Atorvastatin Calcium (Lipitor Tab) 40 mg QAM PO 10/02/16 09:00 11/01/16 08:59 10/09/16 09:00 40 MG Calcium Acetate (Phoslo Cap) 667 mg TIDM PO 10/02/16 08:00 11/01/16 07:59 10/10/16 07:26 667 MG Clopidogrel Bisulfate (plAVix TAB) 75 mg QAM PO 10/02/16 09:00 11/01/16 08:59 10/09/16 09:01 75 MG Docusate Sodium (coLACE CAP) 100 mg BID PO 10/02/16 09:00 11/01/16 08:59 10/06/16 21:24 100 MG Gemfibrozil (Lopid Tab) 600 mg BID PO 10/02/16 09:00 11/01/16 08:59 10/09/16 20:49 600 MG Isosorbide Mononitrate (Imdur Ext Rel Tab) 60 mg QAM PO 10/02/16 09:00 11/01/16 08:59 10/09/16 08:59 60 MG Metoprolol Tartrate (Lopressor Tab) 100 mg BID PO 10/02/16 09:00 11/01/16 08:59 10/09/16 20:46 100 MG Pregabalin (Lyrica Cap) 25 mg BID PO 10/02/16 09:00 11/01/16 08:59 10/09/16 20:45 25 MG Tramadol HCl (Ultram Tab) 50 mg Q4H PRN PO 10/02/16 01:00 11/01/16 00:59 10/07/16 22:31 50 MG Zolpidem Tartrate (Ambien Tab) 5 mg HS PRN PO 10/02/16 01:00 11/01/16 00:59 Vitamin B Complex (Vitamin B Complex) 1 tab QAM PO 10/02/16 09:00 11/01/16 08:59 10/10/16 07:26 1 TAB Ondansetron HCl (Zofran Inj) 4 mg Q6H PRN IV 10/02/16 01:00 11/01/16 00:59 10/04/16 06:21 4 MG Insulin Aspart (novoLOG ASPART) SLIDING SCALE If C... ACHS SC 10/02/16 06:30 11/01/16 06:59 10/10/16 07:33 4 UNITS Glucose (Glucose 40% Gel) UD PRN PO 10/02/16 01:00 11/01/16 00:59 Glucose (Glucose Chew Tab) 1 tabs UD PRN PO 10/02/16 01:00 11/01/16 00:59 Dextrose (Dextrose 50% 50ML Syringe) 50 ml UD PRN IV 10/02/16 01:00 11/01/16 00:59 Glucagon (Glucagon Inj) 1 mg UD PRN SQ 10/02/16 01:00 11/01/16 00:59 Guaifenesin (Organidin Nr Tab) 600 mg BID PO 10/02/16 09:00 11/01/16 08:59 10/10/16 07:27 600 MG Budesonide (Pulmicort Respules 0.5MG/ 2ML Neb Soln) 0.5 mg BIDR INH 10/02/16 08:00 11/01/16 07:59 4/15/17 07:32 0.5 MG Levofloxacin (Consult) 1 ea UD PRN N/A 10/02/16 02:30 10/11/16 23:59 Hydralazine HCl (HydrALAZINE INJ) 10 mg Q4H PRN IV. 10/02/16 13:15 11/01/16 13:14 10/02/16 14:34 10 MG Furosemide (Lasix Tab) 40 mg BID17 PO 10/02/16 17:00 11/01/16 16:59 10/09/16 17:12 40 MG Heparin Sodium (Porcine) (Heparin Sq 5000 Unit/0.5ml) 5,000 unit Q8 SQ 10/02/16 22:00 11/01/16 21:59 10/10/16 05:32 5,000 UNIT Pantoprazole Sodium (Protonix Tab) 40 mg QAM PO 10/03/16 09:00 11/02/16 08:59 10/10/16 07:27 40 MG Benzonatate (Tessalon Perles Cap) 100 mg TID PRN PO 10/04/16 13:30 11/03/16 13:29 10/05/16 08:48 100 MG Levofloxacin (Levaquin Tab) 250 mg Q48H PO 10/06/16 09:00 10/11/16 23:59 10/08/16 10:43 250 MG Epoetin Jan (Procrit Inj) 10,000 units TuThSa@1600 IV. 10/06/16 16:00 11/05/16 15:59 Future hold 10/06/16 18:36 10,000 UNITS Albuterol/ Ipratropium (Duoneb) 3 ml QIDR INH 10/06/16 16:00 11/05/16 15:59 10/10/16 07:32 3 ML Albuterol/ Ipratropium (Duoneb) 3 ml Q2R PRN INH 10/06/16 13:15 11/05/16 13:14 Piperacillin Sod/ Tazobactam Sod 1 ea 1 ea UD PRN N/A 10/06/16 18:15 10/11/16 23:59 Piperacillin Sod/ Tazobactam Sod/ Dextrose (Zosyn Iv/D5 100ml) 120 ml @ 30 mls/hr Q12H IV 10/07/16 02:00 10/11/16 23:59 10/10/16 05:11 30 MLS/HR Insulin Glargine (Lantus Solostar Pen) 40 unit QPM SQ 10/07/16 21:00 11/06/16 20:59 10/09/16 20:52 40 UNIT Loperamide HCl (Imodium Cap) 2 mg Q4 PRN PO 10/09/16 15:15 11/08/16 15:14 Saccharomyces Boulardii (Florastor Cap) 250 mg DAILY PO 10/10/16 09:00 11/09/16 08:59 Impression (1) ESRD on dialysis (2) Hypoxia (3) Anemia (4) Hx of right BKA (5) Hypertension (6) Diabetes mellitus (7) Pneumonia Mrs. 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 Chest x-ray documenting pulmonary congestion and right lower lobe infiltrate. Blood cultures negative. Fevers persistent. CT chest and sinuses obtained 06/13 c/w resolving pneumonia and sinusitis. Mrs. Bennett recently had right BKA and was at [facility] for fitting of her leg prosthesis. PMH - HTN, AODM, osteomyelitis and R BKA. Recommendations ESRD: -- Medically stable on HD this am. No change to current prescription. -- Medications appropriately dosed for renal function. Levaquin and Zosyn per pharmacy -- Continue furosemide 40 mg twice daily -- Continue Phoslo QAC ANEMIA: -- Epogen 78171 units QHD -- Hgb has dropped despite JOHN therapy. Will transfuse 1 U PRBC during HD today -- Monitor H&H ID: -- Pneumonia and sinusitis are clinically improved -- 10/07/[address] reports reviewed today -- Antibiotic management as per ID business solutions consultant OTHER: -- Recommend PT for strengthening and use of RLE prosthesis
[2016-10-10] MEDS: ATORVASTATIN 40 MG TAB PO SCH (13:46)
[2016-10-10] MEDS: AMIODARONE 200 MG TAB PO SCH ×2 (13:47→21:12)
[2016-10-10] MEDS: METOPROLOL TARTRATE 100 MG TAB PO SCH ×2 (13:47→21:12)
[2016-10-10] MEDS: GEMFIBROZIL 600 MG TAB PO SCH ×2 (13:47→21:13)
[2016-10-10] MEDS: LEVOFLOXACIN 250 MG TAB PO SCH (13:48)
[2016-10-10] MEDS: AMLODIPINE BESYLATE 5 MG TAB PO SCH (13:48)
[2016-10-10] MEDS: FUROSEMIDE 40 MG TAB PO SCH ×2 (13:49→16:59)
[2016-10-10] MEDS: ISOSORBIDE MONONITRATE 60 MG TABCR PO SCH (13:49)
[2016-10-10] MEDS: SACCHAROMYCES BOUL (FLORASTOR) 250 MG CAP PO SCH (13:49)
[2016-10-10] MEDS: PREGABALIN 25MG CAP PO SCH ×2 (13:54→21:11)
[2016-10-10] MEDS: CLOPIDOGREL BISULFATE 75 MG TAB PO SCH (14:04)
[2016-10-10] MEDS ORDERED: NURSING VERBAL MED ORDER ONE (15:15)
--- NOTE | 2016-10-10 15:48 | Hospitalist Progress Note ---
Hospitalist Progress Note Date of Service Oct 10, 2016. Subjective Pt evaluation today including: conversation w/ patient, conversation w/ family , physical exam, lab review At HD this AM, feeling fine today, still coughing, afebrile. All Other Systems: Reviewed and Negative Objective Vital Signs Date Time Temp Pulse Resp B/P Pulse Ox O2 Delivery O2 Flow Rate FiO2 10/10/16 15:10 36.7 68 20 149/69 91 10/10/16 13:30 Nasal Cannula 2.0 10/10/16 13:27 36.7 65 146/70 10/10/16 12:15 65 152/64 10/10/16 12:00 65 138/64 10/10/16 09:15 61 128/54 10/10/16 09:07 63 127/58 10/10/16 08:59 36.8 64 126/60 10/10/16 08:00 Nasal Cannula 2.0 10/10/16 07:37 36.3 59 125/67 94 10/10/16 07:32 63 18 94 Nasal Cannula 2.0 10/10/16 04:16 37.0 60 18 127/62 93 Nasal Cannula 2.0 10/10/16 04:00 Nasal Cannula 2.0 10/10/16 00:30 36.9 65 20 144/69 99 Nasal Cannula 2.0 10/10/16 00:00 Nasal Cannula 2.0 10/09/16 20:00 Nasal Cannula 2.0 10/09/16 19:51 36.6 61 20 120/70 100 Nasal Cannula 2.0 10/09/16 18:50 61 18 98 Nasal Cannula 2.0 10/09/16 16:35 68 20 97 Nasal Cannula 2.0 10/09/16 16:00 36.5 87 18 122/70 94 2.0 10/09/16 16:00 Nasal Cannula 2.0 Physical Exam General Appearance: no apparent distress, + obese Eyes: normal inspection, sclerae normal ENT: hearing grossly normal Neck: trachea midline Respiratory/Chest: no respiratory distress, no accessory muscle use, + crackles (at bases bilat) Cardiovascular: regular rate, rhythm, no edema, no murmur Abdomen: normal bowel sounds, non tender, soft Extremities: normal inspection, no pedal edema, no calf tenderness Neurologic/Psychiatric: alert, oriented x 3 Skin: normal color, warm/dry, no rash Laboratory Results Last 24 Hours Test 10/09/16 16:21 10/09/16 20:19 10/10/16 06:51 10/10/16 07:24 Bedside Glucose 170 mg/dl 180 mg/dl 105 mg/dl White Blood Count 8.19 K/uL Red Blood Count 2.47 M/uL Hemoglobin 7.8 g/dL Hematocrit 22.6 % Mean Corpuscular Volume 91.5 fL Mean Corpuscular Hemoglobin 31.6 pg Mean Corpuscular Hemoglobin Concent 34.5 g/dl Platelet Count 253 K/uL Mean Platelet Volume 9.2 fL Neutrophils (%) (Auto) 67.4 % Lymphocytes (%) (Auto) 12.0 % Monocytes (%) (Auto) 14.3 % Eosinophils (%) (Auto) 3.3 % Basophils (%) (Auto) 1.0 % Neutrophils # (Auto) 5.53 K/uL Lymphocytes # (Auto) 0.98 K/uL Monocytes # (Auto) 1.17 K/uL Eosinophils # (Auto) 0.27 K/uL Basophils # (Auto) 0.08 K/uL RDW Standard Deviation 54.0 fL RDW Coefficient of Variation 16.0 % Immature Granulocyte % (Auto) 2.0 % Immature Granulocyte # (Auto) 0.16 K/uL Polychromasia 1+ Sodium Level 132 mmol/L Potassium Level 4.3 mmol/L Chloride Level 94 mmol/L Carbon Dioxide Level 25 mmol/L Anion Gap 13.0 mmol/L Blood Urea Nitrogen 43 mg/dl Creatinine 7.80 mg/dl Est Creatinine Clear Calc Drug Dose 8.3 ml/min Estimated GFR () 5.6 Estimated GFR (Non- 4.9 BUN/Creatinine Ratio 5.5 Random Glucose 103 mg/dl Calcium Level 8.6 mg/dl Test 10/10/16 14:01 Bedside Glucose 96 mg/dl Assessment and Plan 66-year-old female with complex medical history, here with sepsis and pneumonia , possible acute sinusitis. She continues to improve since adding Zosyn back on to her regimen for pneumonia and sinusitis. Chest CT confirms bilat PNA, CT sinuses with obstruction and narrowing of bilat OM complexes, and some chronic sinusitis findings, no signs of invasion into meninges. Acute hypoxemic respiratory failure, Sepsis, PNA- continues to improve, afebrile -Continue Levaquin (day #9/10) renally dosed, added back Zosyn again (day#/) to double cover in case of resistant Pseudomonas and for anaerobic coverage given recent prolonged hospital and rehabilitation stays--> discussed case with infectious disease PA . No concern for meningitis at this point. MRSA swab negative so no Vanco needed. Had some loose stools but C. difficile antigen is negative -follow Repeat blood cultures-no growth to date -continue nebulizers - infectious disease recommendations appreciated - incentive spirometry - Will need 2 step if unable to get off O2 -Considering discharge to home tomorrow if continues to improve-could send out on Augmentin and Levaquin as per discussion with ID Neck pain/stiffness/Sinus drainage-neck pain related to MSK cause from bed positioning Sinus CT- Minimal scattered mucosal thickening. Soft tissue occlusion left ostiomeatal unit. Soft tissue narrowing on the right. Since she has shown improvement in her symptoms, no need for spinal tap at this time. -mobilize out of bed, PT Acute on chronic diastolic CHF- resolved - continue 40 mg BID by mouth Lasix - Intake and output daily- minimal urine output, on HD - Daily weights - AHA, low-sodium diet - Continue home dose of metoprolol - ROSSI inhibitor and ARB, contraindicated with ESRD End-stage renal disease on HD, ANemia of chronic renal disease - Gets dialysis TTS - Continue I/Os and daily weights - Renally dose medications - receiving epogen, 1 unit PRBCs 10/10/16 - renal diet - continue phoslo Left 2nd toe pressure ulcer- not present on admission - Appreciate wound care - no debridement at this time - avoid further pressure ulcers- keep in waffle boot h/o of Sacral ulcers: Re-evaluated, no open areas or skin breakdown. Evidence of previous ulcer scars and surgical scars. dressing in place History of SVT-stable, - no events on tele- sinus in the 60-70's - Continue metoprolol, Amiodarone History of coronary artery disease-stable, no current issues - Continue clopidogrel - Continue metoprolol - Continue imdur Hypertension-stable - Continue amlodipine and metoprolol Insulin-dependent Diabetes mellitus - no further hypoglycemia since lowering Lantus - continue lantus at 40 units - Aspart sliding scale Hypercholesterolemia - continue atorvastatin - Continue gemfibrozil Peripheral neuropathy - Continue Lyrica DVT prophylaxis - Heparin subcutaneous 3 times a day Code Status - Level I full code Disposition - PT/OT- with prosthesis - Encourage mobility- nursing staff instructed to help patient OOB -to home tomorrow
[2016-10-10] MEDS: LOPERAMIDE HCL 2 MG CAP PO PRN (15:55)
[2016-10-10] MEDS: INSULIN GLARGINE SOLOSTAR 100 UNITS/ML 3 ML PEN SQ SCH (21:29)
[2016-10-11] VITALS (8 sets, daily range): BP systolic 124–161; BP diastolic 65–85; PULSE 55–73; TEMP 36.8–37.4; O2SAT 92–100
[2016-10-11] MEDS: LOPERAMIDE HCL 2 MG CAP PO PRN ×2 (03:32→08:50)
[2016-10-11] MEDS: BENZONATATE 100MG CAP PO PRN (04:03)
[2016-10-11 06:05] LABS: BASO % 1.3 %; BASO ABS # 0.11 K/uL (0-0.2); EOS % 2.4 %; HEMATOCRIT 25.8 % (37-47); IG% 3.1 %; LYMPH % 16.9 %; LYMPH ABS # 1.41 K/uL (1.2-3.4); MEAN CORPUSCULAR HEMOGLOBIN 30.7 pg (25-34); MEAN CORPUSCULAR HGB CONC 34.5 g/dl (32-36); MONO % 11.9 %; NEUT % 64.4 %; PLATELET COUNT 239 K/uL (130-400); WHITE BLOOD COUNT 8.35 K/uL (4.8-10.8)
[2016-10-11] MEDS: PIPERACILL/TAZOBAC IV 4.5 GM in DEXTROSE 5% 100ML IV SCH (06:16)
[2016-10-11] MEDS: HEPARIN SOD 5000 UNIT/0.5 ML CARP SQ SCH (06:18)
[2016-10-11 06:51] LABS: BUN/CREATININE RATIO 5.1 (10-20); CALCIUM 8.8 mg/dl (8.5-10.1); CREATININE 5.3 mg/dl (0.60-1.20); MAGNESIUM 2.3 mg/dl (1.8-2.4); POTASSIUM 4.2 mmol/L (3.5-5.1)
[2016-10-11 07:04] LABS: COMPLETE YES
[2016-10-11] MEDS: ALBUT/IPRATROP 3MG/0.5MG NEB 3 ML VIAL INH SCH ×2 (07:07→12:00)
[2016-10-11] MEDS: BUDESONIDE 0.5 MG/2 ML VIAL (PULMICORT) INH SCH (07:07)
[2016-10-11] MEDS: SACCHAROMYCES BOUL (FLORASTOR) 250 MG CAP PO SCH (08:41)
[2016-10-11] MEDS: METOPROLOL TARTRATE 100 MG TAB PO SCH (08:41)
[2016-10-11] MEDS: AMIODARONE 200 MG TAB PO SCH (08:41)
[2016-10-11] MEDS: FUROSEMIDE 40 MG TAB PO SCH (08:42)
[2016-10-11] MEDS: GUAIFENESIN 200 MG TAB PO SCH (08:42)
[2016-10-11] MEDS: PANTOprazole SOD 40 MG TAB PO SCH (08:42)
[2016-10-11] MEDS: CALCIUM ACETATE 667MG GELCAP PO SCH ×2 (08:43→13:10)
[2016-10-11] MEDS: VITAMIN B COMPLEX TAB PO SCH (08:43)
[2016-10-11] MEDS: AMLODIPINE BESYLATE 5 MG TAB PO SCH (08:43)
[2016-10-11] MEDS: GEMFIBROZIL 600 MG TAB PO SCH (08:43)
[2016-10-11] MEDS: ATORVASTATIN 40 MG TAB PO SCH (08:43)
[2016-10-11] MEDS: DOCUSATE SODIUM 100 MG CAP PO SCH (08:44)
[2016-10-11] MEDS: CLOPIDOGREL BISULFATE 75 MG TAB PO SCH (08:44)
[2016-10-11] MEDS: ISOSORBIDE MONONITRATE 60 MG TABCR PO SCH (08:44)
[2016-10-11] MEDS: PREGABALIN 25MG CAP PO SCH (08:50)
[2016-10-11] MEDS: INSULIN ASPART 100 UNITS/ML 3 ML PEN SC SCH ×2 (08:53→13:12)
--- NOTE | 2016-10-11 09:35 | Nephrology Progress Note ---
Nephrology Progress Note Date of Service Oct 11, 2016. Chief Complaint Follow up evaluation of this patient w/ ESRD on HD admitted w/ pneumonia Subjective Mrs. Bennett was seen & examined in her hospital room this morning. She was sitting up in a chair wearing her RLE prosthesis visiting with her . Mrs. Bennett was dialyzed yesterday for 3.5 hrs w/ 2.5 L UF. She was transfused one unit PRBC during her treatment. There were no complications. AVF continues to function well. The patient has remained afebrile. Her breathing is subjectively improved. She hopes to be discharged to home today. Review of Systems Constitutional: No fever Cardiovascular: No chest pain Respiratory: No dyspnea at rest Abdomen: No nausea, No pain, No vomiting Extremities: No leg edema A complete review of systems was performed. Pertinent positives are noted above. All other systems are negative. Vital Signs Last 8 Hrs Date Time Temp Pulse Resp B/P Pulse Ox O2 Delivery O2 Flow Rate FiO2 10/11/16 07:10 36.9 55 20 125/73 100 2.0 10/11/16 07:08 68 18 96 Nasal Cannula 2.0 10/11/16 04:00 37.1 57 20 128/68 92 2.0 10/11/16 04:00 Nasal Cannula 2.0 I & O 24-Hour Column 10/11/16 08:00 Intake Total 1021 ml Output Total 2498 ml Balance -1477 ml Last Recorded Weight Weight (Kilograms): 102.300 Physical Exam General Appearance: no apparent distress Head: normocephalic, atraumatic Eyes: PERRL, EOMI Neck: no adenopathy Respiratory/Chest: lungs clear, no respiratory distress Cardiovascular: regular rate, rhythm Abdomen/GI: normal bowel sounds, non tender, soft Extremities/Musculoskelatal: no pedal edema, + pertinent finding (AVF + bruit) Neurologic/Psych: alert, oriented x 3 Family History FHx: musculoskeletal disease Social History Smoking Status: Unknown if ever smoked Smokeless Tobacco Use: No Alcohol Use: none Drug Use: none Marital Status: Housing Status: lives with family Occupation: retired Laboratory Results Past 24 Hours 10/11/16 05:56 Red Blood Count 2.90, Mean Corpuscular Volume 89.0, Mean Corpuscular Hemoglobin 30.7, Mean Corpuscular Hemoglobin Concent 34.5, Mean Platelet Volume 9.0, Neutrophils (%) (Auto) 64.4, Lymphocytes (%) (Auto) 16.9, Monocytes (%) (Auto) 11.9, Eosinophils (%) (Auto) 2.4, Basophils (%) (Auto) 1.3, Neutrophils # (Auto ) 5.38, Lymphocytes # (Auto) 1.41, Monocytes # (Auto) 0.99, Eosinophils # (Auto ) 0.20, Basophils # (Auto) 0.11 10/11/16 05:56 Test 10/10/16 14:01 10/10/16 16:06 10/10/16 20:06 10/11/16 05:56 Bedside Glucose 96 mg/dl (70-90) 203 mg/dl (70-90) 206 mg/dl (70-90) White Blood Count 8.35 K/uL (4.8-10.8) Red Blood Count 2.90 M/uL (4.2-5.4) Hemoglobin 8.9 g/dL (12.0-16.0) Hematocrit 25.8 % (37-47) Mean Corpuscular Volume 89.0 fL (80-100) Mean Corpuscular Hemoglobin 30.7 pg (25-34) Mean Corpuscular Hemoglobin Concent 34.5 g/dl (32-36) Platelet Count 239 K/uL (130-400) Mean Platelet Volume 9.0 fL (7.4-10.4) Neutrophils (%) (Auto) 64.4 % Lymphocytes (%) (Auto) 16.9 % Monocytes (%) (Auto) 11.9 % Eosinophils (%) (Auto) 2.4 % Basophils (%) (Auto) 1.3 % Neutrophils # (Auto) 5.38 K/uL (1.4-6.5) Lymphocytes # (Auto) 1.41 K/uL (1.2-3.4) Monocytes # (Auto) 0.99 K/uL (0.11-0.59) Eosinophils # (Auto) 0.20 K/uL (0-0.5) Basophils # (Auto) 0.11 K/uL (0-0.2) RDW Standard Deviation 54.4 fL (36.4-46.3) RDW Coefficient of Variation 16.7 % (11.5-14.5) Immature Granulocyte % (Auto) 3.1 % Immature Granulocyte # (Auto) 0.26 K/uL (0.00-0.02) Anion Gap 12.0 mmol/L (3-11) Est Creatinine Clear Calc Drug Dose 12.6 ml/min Estimated GFR () 9.0 Estimated GFR (Non- 7.8 BUN/Creatinine Ratio 5.1 (10-20) Calcium Level 8.8 mg/dl (8.5-10.1) Magnesium Level 2.3 mg/dl (1.8-2.4) Test 10/11/16 07:56 Bedside Glucose 112 mg/dl (70-90) Allergies Coded Allergies: No Known Allergies (Verified , 07/08/16) Medications Current Inpatient Medications Medications (Trade) Dose Ordered Sig/Sheela Route Start Time Stop Time Status Last Admin Dose Admin Acetaminophen (Tylenol Tab) 1,000 mg Q8 PRN PO 10/02/16 01:00 11/01/16 00:59 10/09/16 09:04 1,000 MG Amiodarone HCl (Cordarone Tab) 200 mg BID PO 10/02/16 09:00 11/01/16 08:59 10/11/16 08:41 200 MG Amlodipine Besylate (Norvasc Tab) 5 mg QAM PO 10/02/16 09:00 11/01/16 08:59 10/11/16 08:43 5 MG Atorvastatin Calcium (Lipitor Tab) 40 mg QAM PO 10/02/16 09:00 11/01/16 08:59 10/11/16 08:43 40 MG Calcium Acetate (Phoslo Cap) 667 mg TIDM PO 10/02/16 08:00 11/01/16 07:59 10/11/16 08:43 667 MG Clopidogrel Bisulfate (plAVix TAB) 75 mg QAM PO 10/02/16 09:00 11/01/16 08:59 10/11/16 08:44 75 MG Docusate Sodium (coLACE CAP) 100 mg BID PO 10/02/16 09:00 11/01/16 08:59 10/06/16 21:24 100 MG Gemfibrozil (Lopid Tab) 600 mg BID PO 10/02/16 09:00 11/01/16 08:59 10/11/16 08:43 600 MG Isosorbide Mononitrate (Imdur Ext Rel Tab) 60 mg QAM PO 10/02/16 09:00 11/01/16 08:59 10/11/16 08:44 60 MG Metoprolol Tartrate (Lopressor Tab) 100 mg BID PO 10/02/16 09:00 11/01/16 08:59 10/11/16 08:41 100 MG Pregabalin (Lyrica Cap) 25 mg BID PO 10/02/16 09:00 11/01/16 08:59 10/11/16 08:50 25 MG Tramadol HCl (Ultram Tab) 50 mg Q4H PRN PO 10/02/16 01:00 11/01/16 00:59 10/07/16 22:31 50 MG Zolpidem Tartrate (Ambien Tab) 5 mg HS PRN PO 10/02/16 01:00 11/01/16 00:59 Vitamin B Complex (Vitamin B Complex) 1 tab QAM PO 10/02/16 09:00 11/01/16 08:59 10/11/16 08:43 1 TAB Ondansetron HCl (Zofran Inj) 4 mg Q6H PRN IV 10/02/16 01:00 11/01/16 00:59 10/04/16 06:21 4 MG Insulin Aspart (novoLOG ASPART) SLIDING SCALE If C... ACHS SC 10/02/16 06:30 11/01/16 06:59 10/11/16 08:53 6 UNITS Glucose (Glucose 40% Gel) UD PRN PO 10/02/16 01:00 11/01/16 00:59 Glucose (Glucose Chew Tab) 1 tabs UD PRN PO 10/02/16 01:00 11/01/16 00:59 Dextrose (Dextrose 50% 50ML Syringe) 50 ml UD PRN IV 10/02/16 01:00 11/01/16 00:59 Glucagon (Glucagon Inj) 1 mg UD PRN SQ 10/02/16 01:00 11/01/16 00:59 Guaifenesin (Organidin Nr Tab) 600 mg BID PO 10/02/16 09:00 11/01/16 08:59 10/11/16 08:42 600 MG Budesonide (Pulmicort Respules 0.5MG/ 2ML Neb Soln) 0.5 mg BIDR INH 10/02/16 08:00 11/01/16 07:59 10/11/16 07:07 0.5 MG Levofloxacin (Consult) 1 ea UD PRN N/A 10/02/16 02:30 10/11/16 23:59 Hydralazine HCl (HydrALAZINE INJ) 10 mg Q4H PRN IV. 10/02/16 13:15 11/01/16 13:14 10/02/16 14:34 10 MG Furosemide (Lasix Tab) 40 mg BID17 PO 10/02/16 17:00 11/01/16 16:59 10/11/16 08:42 40 MG Heparin Sodium (Porcine) (Heparin Sq 5000 Unit/0.5ml) 5,000 unit Q8 SQ 10/02/16 22:00 11/01/16 21:59 10/11/16 06:18 5,000 UNIT Pantoprazole Sodium (Protonix Tab) 40 mg QAM PO 10/03/16 09:00 11/02/16 08:59 10/11/16 08:42 40 MG Benzonatate (Tessalon Perles Cap) 100 mg TID PRN PO 10/04/16 13:30 11/03/16 13:29 10/11/16 04:03 100 MG Levofloxacin (Levaquin Tab) 250 mg Q48H PO 10/06/16 09:00 10/11/16 23:59 10/10/16 13:48 250 MG Epoetin Jan (Procrit Inj) 10,000 units TuThSa@1600 IV. 10/06/16 16:00 11/05/16 15:59 Future hold 10/06/16 18:36 10,000 UNITS Albuterol/ Ipratropium (Duoneb) 3 ml QIDR INH 10/06/16 16:00 11/05/16 15:59 10/11/16 07:07 3 ML Albuterol/ Ipratropium (Duoneb) 3 ml Q2R PRN INH 10/06/16 13:15 11/05/16 13:14 Piperacillin Sod/ Tazobactam Sod 1 ea 1 ea UD PRN N/A 10/06/16 18:15 10/11/16 23:59 Piperacillin Sod/ Tazobactam Sod/ Dextrose (Zosyn Iv/D5 100ml) 120 ml @ 30 mls/hr Q12H IV 10/07/16 02:00 10/11/16 23:59 10/11/16 06:16 30 MLS/HR Insulin Glargine (Lantus Solostar Pen) 40 unit QPM SQ 10/07/16 21:00 11/06/16 20:59 10/10/16 21:29 40 UNIT Saccharomyces Boulardii (Florastor Cap) 250 mg DAILY PO 10/10/16 09:00 11/09/16 08:59 10/11/16 08:41 250 MG Loperamide HCl (Imodium Cap) 2 mg Q2H PRN PO 10/10/16 15:30 11/09/16 15:29 10/11/16 08:50 2 MG Impression (1) ESRD on dialysis (2) Hypoxia (3) Anemia (4) Hx of right BKA (5) Hypertension (6) Diabetes mellitus (7) Pneumonia Mrs. 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 with fevers and shaking chills due to pneumonia. Chest x-ray documenting pulmonary congestion and right lower lobe infiltrate. Blood cultures negative. CT chest and sinuses obtained 10/07/16 c/w resolving pneumonia and sinusitis. Mrs. Bennett recently had right BKA and was at [facility] for fitting of her leg prosthesis. PMH - HTN, AODM, osteomyelitis and R BKA. Recommendations ESRD: -- Patient will call HD tomorrow and reschedule TTS outpatient HD at [facility] -- Continue furosemide 40 mg twice daily -- Continue Phoslo QA ANEMIA: -- Patient transfused 1 U PRBC 10/10/16. Hgb has risen from 7.8 to 8.9. -- Will continue JOHN w/ outpatient HD ID: -- Pneumonia and sinusitis are clinically improved -- 10/07/[address] reports reviewed today -- Antibiotic management as per ID process consultant OTHER: -- Recommend PT for strengthening and use of RLE prosthesis
[2016-10-11] MEDS ORDERED: INSDGIPEN SQ (11:40)
[2016-10-11] MEDS ORDERED: VNTHFA/IN INH (11:40)
[2016-10-11] MEDS ORDERED: SACC250C3 PO (11:40)
[2016-10-11] MEDS ORDERED: LSX40 PO (11:40)
[2016-10-11] MEDS ORDERED: LVQ250 PO (11:40)
[2016-10-11] MEDS ORDERED: IMD2X PO (11:40)
[2016-10-11] MEDS ORDERED: AMOX875T PO (11:40)
--- NOTE | 2016-10-11 11:51 | Discharge Instructions ---
Discharge Instructions Date of Service Oct 11, 2016. Admission Reason for Admission: Pneumonia, sepsis Discharge Discharge Diagnosis / Problem: Pneumonia,sepsis Discharge Goals Goal(s): Improve disease control, Diagnostic testing, Therapeutic intervention Activity Recommendations Activity Limitations: as noted below Exercise/Sports Limitations: gradually increase as tolerated (as per Physical Therapy) Shower/Bathe: no limitations . Instructions / Follow-Up Instructions / Follow-Up You were admitted with pneumonia and sepsis. You were treated with antibiotics and had improvement. You were not requiring oxygen at the time of discharge. You should finish out the antibiotics as prescribed. You can use the albuterol inhaler as needed for cough and wheezing. Please follow up with your primary care physician within 1-2 weeks as well as for dialysis this week on Wednesday-please call to schedule these appointments. You should have your chest xray repeated in 3-4 weeks to ensure your pneumonia is cleared. Please note, your INSULIN was lowered quite a bit this admission because your blood sugar was too low at times. This may change after you return home. Please check with your PCP about increasing ths dose if your glucose begins to rise significantly after discharge. For now, continue Lantus 40 units once daily. Current Hospital Diet Patient's current hospital diet: AHA Diet (Heart Healthy), Renal Diet Discharge Diet Recommended Diet: AHA Diet (Heart Healthy), Diabetes Type 2 Diet, Renal Diet Procedures Procedures Performed: CT chest CT sinuses Chest xrays Pending Studies Studies pending at discharge: no Laboratory Results Hemoglobin A1c Test 09/21/16 07:01 Range/Units Estimated Average Glucose 157 mg/dl Hemoglobin A1c 7.1 H 4.5-5.6 % Lipid Panel Test 09/21/16 07:01 Range/Units Triglycerides Level 1516 H 0-150 mg/dl Cholesterol Level 304 H 0-200 mg/dl HDL Cholesterol 28 mg/dl LDL Cholesterol Direct 83 mg/dl Cholesterol/HDL Ratio 10.9 LDL Cholesterol, Calculated mg/dl Medical Emergencies . Who to Call and When: Medical Emergencies: If at any time you feel your situation is an emergency, please call 911 immediately. . Non-Emergent Contact Non-Emergency issues call your: Primary Care Provider, Food Adviser Call Non-Emergent contact if: you have a fever, you have any medication questions . . "Provider Documentation" section prepared by Zakiya Chairez. VTE Core Measure Inpt VTE Proph given/why not?: Unfractionated heparin SQ
--- NOTE | 2016-10-11 17:09 | Discharge Summary ---
Discharge Summary Date of Service Oct 11, 2016. 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 Bony vasculature is prominent. Heart is moderately enlarged. Chronic elevation right hemidiaphragm. Possible superimposed infiltrate medial right base IMPRESSION: Findings of congestive failure, possibly with a superimposed medial right base infiltrative process. CHEST ONE VIEW PORTABLE-10/03/2016 CLINICAL HISTORY: Congestive failure COMPARISON STUDY: 10/01/2016 FINDINGS: The heart remains enlarged. There is mild pulmonary vascular congestion. There is no focal pulmonary consolidation. Trace pleural effusions cannot be excluded. IMPRESSION: Cardiomegaly and mild pulmonary vascular congestion/fluid overload, minimally improved when compared the prior study. CHEST ONE VIEW PORTABLE-10/06/2016 CLINICAL HISTORY: Limited mobility dyspnea COMPARISON STUDY: 10/03/2016 FINDINGS: Developing right infrahilar infiltrate. Mild congestive failure. Potential atelectatic change left base. IMPRESSION: Developing atelectatic change left base with a right infrahilar parenchymal infiltrate. Close follow-up to resolution is suggested. SINUS CT-10/07/2016 CT DOSE: HISTORY: Pain suspect sinusitis, neck pain and stiffness TECHNIQUE: Multiaxial CT images of the paranasal sinuses were performed and reformatted in the coronal plane without the use of contrast. COMPARISON: None. FINDINGS: Mild mucosal thickening of the sphenoid and maxillary sinuses. Soft tissue occlusion of the left ostiomeatal unit. High-grade soft tissue narrowing right ostiomeatal unit. Nasal turbinates appear symmetric. Slight hyperplastic change anterior right nasal turbinates. Frontal sinuses are clear. Osseous structures are negative for a lytic or blastic process. The mastoid air cells are clear. The nasal septum is midline. The orbits are unremarkable. IMPRESSION: Minimal scattered mucosal thickening. Soft tissue occlusion left ostiomeatal unit. Soft tissue narrowing on the right. CHEST CT WITHOUT CONTRAST-10/07/2016 CT DOSE: 1808.66 mGy.cm HISTORY: Dyspnea pneumonia, further evaluate, spiking fevers TECHNIQUE: Multiaxial CT images of the chest were performed without contrast. COMPARISON: None. FINDINGS: Bibasilar parenchymal infiltrates. There are consolidative changes left lung base with a small left effusion. There are minimal consolidative changes right base. Mid and upper lungs are considered clear. Several small reactive mediastinal and/or hilar nodes. Moderate cardiomegaly. Several small hepatic cysts. Mild hyperplastic change of the left adrenal. IMPRESSION: Consolidative left and to a lesser extent right basilar infiltrative change. Trace left basilar pleural effusion Consultations: Nephrology Infectious disease Medication Reconciliation New Medications: Albuterol Hfa (Ventolin Hfa) 200 Puffs/29940 Mcg Aers 2-4 PUFFS INH Q6H, #1 INHALER Amoxicillin & Pot Clavulanate (Augmentin 875-125 mg) 1 Tab Tab 1 TAB PO BID for 5 Days, #10 TAB Furosemide (Furosemide) 40 Mg Tab 40 MG PO BID17 for 30 Days, #60 TAB Levofloxacin (Levofloxacin) 250 Mg Tab 250 MG PO Q48H for 4 Days, #2 TAB Next dose due on 10/12/16 Loperamide Hcl (Imodium) 2 Mg Cap 2 MG PO Q2H PRN for Diarrhea for 7 Days, CAP Saccharomyces Boulardii (Florastor) 250 Mg Cap 250 MG PO DAILY for 10 Days, #10 CAP Changed Medications: Insulin Glargine (Lantus Solostar) 100 Unit/Ml Inj 40 UNITS SQ QPM, #1 PEN (Changed from: 70 UNITS) Continued Medications: Acetaminophen (Tylenol) 500 Mg Tab 1000 MG PO Q8 PRN for MILD PAIN, TAB MAX APAP =3GM/24HRS Amiodarone Hcl (Cordarone) 200 Mg Tab 200 MG PO BID, TAB Amlodipine Besylate (Norvasc) 5 Mg Tab 5 MG PO QAM Atorvastatin (Atorvastatin Calcium) 40 Mg Tab 40 MG PO QAM B-Complex Vitamins (Vitamin B Complex) 1 Tab Tab 1 TAB PO QAM Calcium Acetate (Phoslo 667 Mg) 667 Mg Cap 667 MG PO TIDM Clopidogrel (Plavix) 75 Mg Tab 75 MG PO QAM, TAB Darbepoetin (Aranesp Albumin Free) 60 Mcg/0.3 Ml Inj 60 MCG SQ WK GIVE EVERY WEDNESDAY. Ergocalciferol (Vitamin D 20141 Unit) 50,000 Unit Cap 56474 UNITS PO WK, CAP EVERY WEDNESDAY Gemfibrozil (Lopid) 600 Mg Tab 600 MG PO BID, TAB Insulin Aspart (Novolog Flexpen) 100 Units/Ml Inj SQ ACHS PER SLIDING SCALE 70-130 = 0 UNITS 131-180 = 2 UNITS 181-240 = 4 UNITS 241-300 = 6 UNITS 301-350 = 8 UNITS 351-400 = 10 UNITS > 400 = 12 UNITS AND CALL Isosorbide Mononitrate Ext Rel (Imdur Ext Rel) 60 Mg Ertab 60 MG PO QAM Metoprolol Tartrate (Metoprolol Tartrate) 100 Mg Tab 100 MG PO BID Paricalcitol (Paricalcitol) 2 Mcg/Ml Inj 1.5 ML INJ 3XWK 3MCG INJECTION TO BE GIVEN BY DIALYSIS NURSE EVERY WEDNESDAY,WEDNESDAY, AND WEDNESDAY. Pregabalin (Lyrica) 25 Mg Cap 25 MG PO BID Tramadol (Ultram) 50 Mg Tab 50 MG PO Q4H PRN for Pain, TAB NEEDED FOR MODERATE TO SEVERE PAIN # 4-10 MAX = 400MG/24HRS Zolpidem Tartrate (Zolpidem Tartrate) 5 Mg Tab 5 MG PO HS PRN for Insomnia, TAB Discontinued Medications: Docusate Sodium (Docusate Sodium) 100 Mg Cap 100 MG PO BID, CAP Furosemide (Lasix) 20 Mg Tab 20 MG PO BID, TAB Gabapentin (Gabapentin) 300 Mg Cap 300 MG PO BID Insulin Glargine (Lantus Solostar) 100 Unit/Ml Inj 36 UNITS SC QAM, PEN Senna/Docusate Sod (Senokot S) 1 Tab Tab 1 TAB PO DAILY PRN for Constipation, TAB Referrals At Discharge Follow up Referrals: Family Practice Referral - Within 1-2 Weeks with Renae Whitfield, DO Discharge Exam Much improved on the day of discharge. Still with some cough. Is out of bed and ambulating with her prosthetic. Does not require oxygen with ambulation. Review of Systems: Constitutional: No chills, No fever Eyes: No problem reported ENT: No problem reported Respiratory: + cough, No shortness of breath Cardiovascular: No chest pain Abdomen: + diarrhea (some loose stools but Clostridium difficile antigen was negative), No nausea, No pain, No vomiting Musculoskeletal: No problem reported Genitourinary - Female: No problem reported Neurologic: No problem reported Psychiatric: No problem reported Endocrine: No problem reported Hematologic / Lymphatic: No problem reported Integumentary: No problem reported Physical Exam: General Appearance: WD/WN, no apparent distress, + obese Eyes: normal inspection, sclerae normal ENT: hearing grossly normal Neck: trachea midline Respiratory/Chest: no respiratory distress, no accessory muscle use, + crackles (at the bases bilaterally, no wheezes) Cardiovascular: regular rate, rhythm, no edema, no murmur Abdomen / GI: normal bowel sounds, non tender, soft, + hernia (large reducible ventral hernia) Extremities: + pertinent finding (right BKA with prosthesis in place, left leg with no calf tenderness and no edema) Neurologic/Psychiatric: alert, normal mood/affect, oriented x 3 Skin: normal color, warm/dry, no rash Hospital Course 66-year-old female with complex medical history, here with sepsis and pneumonia , probable acute sinusitis. She continues to improve since adding Zosyn back on to her regimen for pneumonia and sinusitis. Prior to that, she continued to spike daily fevers despite being on Levaquin. Chest CT confirms bilat PNA, CT sinuses with obstruction and narrowing of bilat OM complexes, and some chronic sinusitis findings, no signs of invasion into meninges. Acute hypoxemic respiratory failure, Sepsis, PNA- continues to improve, afebrile now for 4 days and ready for discharge to home, no oxygen required with ambulation -Continue Levaquin (day #10/14) renally dosed, added back Zosyn again (day#6) to double cover in case of resistant Pseudomonas and for anaerobic coverage given recent prolonged hospital and rehabilitation stays--> discussed case with infectious disease PA . No concern for meningitis at this point as she did have a painful and stiff neck which is now resolved. MRSA swab negative so no Vanco needed. Had some loose stools but C. difficile antigen is negative -We'll finish out a 14 day course of Levaquin and will switch Zosyn to by mouth Augmentin as per discussion with ID -follow Repeat blood cultures-no growth to date -continue bronchodilator home - infectious disease recommendations appreciated - incentive spirometry Neck pain/stiffness/Sinus drainage-neck pain related to MSK cause from bed positioning Sinus CT- Minimal scattered mucosal thickening. Soft tissue occlusion left ostiomeatal unit. Soft tissue narrowing on the right. Since she has shown improvement in her symptoms, no need for spinal tap -mobilize out of bed, PT Acute on chronic diastolic CHF- resolved, large volumes of fluid removed with hemodialysis - continue increased dose of 40 mg BID by mouth Lasix - Intake and output daily- minimal urine output, on HD - Daily weights - AHA, low-sodium diet - Continue home dose of metoprolol - ROSSI inhibitor and ARB, contraindicated with ESRD End-stage renal disease on HD, Anemia of chronic renal disease - Gets dialysis TTS - Continue I/Os and daily weights - Renally dose medications - receiving epogen, 1 unit PRBCs 10/10/16 - renal diet - continue phoslo Left 2nd toe blood blister- not present on admission, seen by wound Anibal and no debridement necessary - Appreciate wound care consultation - avoid further pressure ulcers- keep in waffle boot h/o of Sacral ulcers: Re-evaluated, no open areas or skin breakdown. Evidence of previous ulcer scars and surgical scars. 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-stable, - no events on tele- sinus in the 60-70's - Continue metoprolol, Amiodarone History of coronary artery disease-stable, no current issues - Continue clopidogrel - Continue metoprolol - Continue imdur Hypertension-stable - Continue amlodipine and metoprolol Insulin-dependent Diabetes mellitus - no further hypoglycemia since lowering Lantus - continue lantus at 40 units upon discharge and increase insulin as needed if glucose rises again at home - Aspart sliding scale Hypercholesterolemia - continue atorvastatin - Continue gemfibrozil Peripheral neuropathy - Continue Lyrica DVT prophylaxis - Heparin subcutaneous 3 times a day Code Status - Level I full code Disposition - PT/OT- with prosthesis - Encourage mobility- nursing staff instructed to help patient OOB -to home today with home PT Total Time Spent: Greater than 30 minutes This includes examination of the patient, discharge planning, medication reconciliation, and communication with other providers. Discharge Instructions Please refer to the electronic Patient Visit Report (Discharge Instructions) for additional information. Follow-Up With PCP within one week Routine hemodialysis Wednesday Additional Copies To Renae Whitfield DO
[2016-12-10] MEDS ORDERED: LEVO25TA PO (10:41)
== END 2016-10-11 14:05 | disposition home health service (06) | DRG 871 ==
LOC: ENRESERVTM → ENRESERVDT → EDBD 23:07 → C.EDA 23:11 → C.MED 10-02 00:57
PROVIDERS: ADMIT Hospitalist; ATTEND Family Medicine
DX: A41.9 Sepsis, unspecified organism (principal); N18.6 End stage renal disease; J18.9 Pneumonia, unspecified organism; J96.01 Acute respiratory failure with hypoxia; I50.33 Acute on chronic diastolic (congestive) heart failure; I13.2 Hypertensive heart and chronic kidney disease with heart failure and with stage 5 chronic kidney disease, or end stage renal disease; I47.1 Supraventricular tachycardia; J98.11 Atelectasis; I25.10 Atherosclerotic heart disease of native coronary artery without angina pectoris; E11.22 Type 2 diabetes mellitus with diabetic chronic kidney disease; Z99.2 Dependence on renal dialysis; E11.42 Type 2 diabetes mellitus with diabetic polyneuropathy; Z79.4 Long term (current) use of insulin; E78.00 Pure hypercholesterolemia, unspecified; L89.899 Pressure ulcer of other site, unspecified stage; E66.01 Morbid (severe) obesity due to excess calories; Z68.37 Body mass index [BMI] 37.0-37.9, adult; Z89.511 Acquired absence of right leg below knee; J06.9 Acute upper respiratory infection, unspecified; K43.9 Ventral hernia without obstruction or gangrene; D63.1 Anemia in chronic kidney disease; J32.9 Chronic sinusitis, unspecified; M10.9 Gout, unspecified; J01.90 Acute sinusitis, unspecified; B96.5 Pseudomonas (aeruginosa) (mallei) (pseudomallei) as the cause of diseases classified elsewhere

== ENCOUNTER → 2016-11-13 | Outpatient (CLI) | payer BC ==
[~2016-11-13] MED LIST changes: -ASPCH81X PO; -CHOL2000 PO; +ERGO500011 PO; -FURO80TA63 PO; -GABA1CAP4 PO; +IMD2X PO; -INSDGIPEN SC; +INSDGIPEN SQ; +LEVO25TA PO; +LSX40 PO; +LVQ250 PO; +NVLGI/PEN SQ; +SACC250C3 PO; +TRAM-10 PO; +VNTHFA/IN INH; +ZOLP5TAB6 PO; +[UNRECOGNIZED DRUG - CODE] INJ
--- NOTE | 2016-11-13 13:23 | DIAGNOSTIC IMAGING REPORT ---
CHEST 2 VIEWS ROUTINE CLINICAL HISTORY: J18.9 [id number] COMPARISON STUDY: 10/06/2016 FINDINGS: Moderate stable cardiomegaly. Improved aeration right infrahilar region as well as left base. Minimal residual bibasilar atelectatic change. Mid and upper lungs are considered clear. IMPRESSION: Improved exam. Mild stable cardiomegaly. Improved aeration of both lung bases. Electronically signed by: Cornell Malhotra M.D. 11/13/2016 1:21 PM Dictated Date/Time: 11/13/2016 1:21 PM
== END | disposition home or self-care (01) ==
LOC: C.RAD 12:59
PROVIDERS: ATTEND Nurse Practitioner Family
DX: A41.9 Sepsis, unspecified organism (principal); J18.9 Pneumonia, unspecified organism

== ENCOUNTER → 2016-11-20 | Outpatient (CLI) | payer BC ==
[2016-11-20 10:13] LABS: THYROID STIMULATING HORMONE 4.99 uIu/ml (0.300-4.500)
== END | disposition home or self-care (01) ==
LOC: C.LAB1850 07:59
PROVIDERS: ATTEND Nurse Practitioner Family
DX: R94.6 Abnormal results of thyroid function studies (principal); E78.5 Hyperlipidemia, unspecified

== ENCOUNTER → 2017-02-17 | Outpatient (CLI) | payer BC ==
[~2017-02-17] MED LIST changes: +ERGO1CAP41 PO; -ERGO500011 PO
--- NOTE | 2017-02-17 15:58 | MAMMOGRAPHY REPORT ---
BILATERAL DIGITAL SCREENING MAMMOGRAM TOMOSYNTHESIS WITH CAD: 02/17/2017 CLINICAL HISTORY: Routine screening. Patient has no complaints. TECHNIQUE: Breast tomosynthesis in addition to standard 2D mammography was performed. Current study was also evaluated with a Computer Aided Detection (CAD) system. COMPARISON: Comparison is made to exams dated: 02/17/2016 mammogram, 02/13/2015 mammogram, 12/14/2013 m ammogram, 12/12/2012 mammogram, 12/10/2011 mammogram, and 12/14/2005 mammogram - [facility] enter. BREAST COMPOSITION: The tissue of both breasts is almost entirely fatty. FINDINGS: There is persistent asymmetric skin thickening and trabecular edema as well as increasingl y prominent tortuosity and ectasia of blood vessels projecting over the left breast. These findings could be due to a more central venous obstruction and/or occlusion and clinical correlation is recomm ended. No suspicious breast mass, architectural distortion or cluster of suspicious microcalcificati ons is seen. There are mild vascular calcifications in both breasts. IMPRESSION: ACR BI-RADS CATEGORY 1: NEGATIVE 1. There is no mammographic evidence of malignancy in the breasts. A 1 year screening mammogram is r ecommended. 2. Asymmetric skin thickening, trabecular edema and tortuous ectatic vessels are again seen in the l eft breast, increasingly prominent compared to last years mammograms. Although some of the findings may be related to dependent edema, a more central venous obstruction cannot be excluded and clinical correlation is recommended. The patient will receive written notification of the results. Approximately 10% of breast cancers are not detected with mammography. A negative mammographic report should not delay biopsy if a clinically suggestive mass is present. Rita Diaz M.D. ay/:02/17/2017 12:00:44 [employer] Marketing: Malou Acuna RT(R)(M), [facility] letter sent: Normal 1/2 BI-RADS Code: ACR BI-RADS Category 1: Negative
== END | disposition home or self-care (01) ==
LOC: C.MAMM 08:55
PROVIDERS: ATTEND Nurse Practitioner Family
DX: Z12.31 Encounter for screening mammogram for malignant neoplasm of breast (principal); R23.4 Changes in skin texture

== ENCOUNTER → 2017-03-03 | Outpatient (CLI) | payer BC ==
[2017-03-03 09:45] LABS: ESTIMATED AVERAGE GLUCOSE 186 mg/dl; HA1C FLAG Normal (Normal)
[2017-03-03 10:09] LABS: THYROID STIMULATING HORMONE 3.89 uIu/ml (0.300-4.500)
== END | disposition home or self-care (01) ==
LOC: C.LAB1850 06:49
PROVIDERS: ATTEND Nurse Practitioner Family
DX: E11.8 Type 2 diabetes mellitus with unspecified complications (principal); E03.9 Hypothyroidism, unspecified

== ENCOUNTER → 2017-07-26 | Day surgery (SDC) | payer BC ==
[2017-07-16 10:11] VITALS: BMI 36.0
[~2017-07-26] VITALS: Ht 165.1 cm; Wt 100.0 kg
[~2017-07-26] MED LIST changes: -ACET-1256 PO; -ARNI60 SQ; -B-COTAB18 PO; +CARB1SOL OPB; -ERGO1CAP41 PO; -IMD2X PO; +INSDGI SC; -INSDGIPEN SQ; +LATA0.5S OPB; -LEVO25TA PO; +LEVO50TA6 PO; +LIDOCAINE HCL 2% 2 ML VIAL (20MG/ML) ONE; -LVQ250 PO; +MIDAZOLAM HCL 1 MG/ML 2ML VIAL ONE; -NVLGI/PEN SQ; +OMEG12006 PO; +ONDANSETRON INJ 2 MG/ML 2 ML VIAL ONE; +OXYC-57 PO; +PROPOFOL IV EMULSION 10 MG/ML 20 ML VIAL IV ONE; -SACC250C3 PO; +SODIUM CHLORIDE 0.9% 500ML 500 ML IV ONE; -TRAM-10 PO; -VNTHFA/IN INH; -ZOLP5TAB6 PO; -[UNRECOGNIZED DRUG - CODE] INJ
[2017-07-26 08:52] VITALS: Ht 165.1 cm; Wt 100.0 kg
--- NOTE | 2017-07-26 10:08 | Endo History and Physical ---
History & Physical Date of Service: Jul 26, 2017. Chief Complaint: SCREENING Referring Physician: DR. ANTHONY History of Present Illness 67 yo CF who presents for colonoscopy secondary to history of colon polyps. Past Medical History Diabetes, Cancer, High Cholesterol, Hypertension, Kidney Disease Past Surgical History Hx Cardiac Surgery: No Hx Internal Defibrillator: No Hx Pacemaker: No Hx Abdominal Surgery: Yes (HYSTERECTOMY) Hx of Implantable Prosthesis: No Hx Post-Op Nausea and Vomiting: No Hx Cancer Surgery: Yes (BLADDER AND BOWEL RESECTION WITH COLOSTOMY/REVERSAL) Hx Thoracic Surgery: No Hx Orthopedic: Yes (RT BKA) Hx Urinary Tract Surgery: No Family History None Social History Smoking Status: Never Smoker Hx Substance Use: Yes (SEE MED REC) Hx Alcohol Use: No Allergies Coded Allergies: No Known Allergies (Verified , 07/26/17) Current Medications Reported Home Medications Medications Dose Route/Sig Max Daily Dose Days Date Category Dose Instructions Xalatan 0.005% Oph Kenyatta (Latanoprost) 0.005 % Kenyatta 1 Drops OPB HS 07/16/17 Reported Refresh (Carboxymethylcellulose Sodium) 1 % Rahat 1 Drop OPB DIRECTED 07/16/17 Reported Percocet 5MG/325MG (Oxycodone/Acetaminophen) Tab 1 Tablet PO HS PRN 07/16/17 Reported PAIN [place] 3 ([place]-3 Fatty Acids) 1 Cap Cap 1 Cap PO TID 07/16/17 Reported Levothyroxine Sodium 50 Mcg Tab 1 Tab PO QAM 07/16/17 Reported Lantus (Insulin Glargine) 100 Unit/Ml Inj 1 Dose SC BID 07/16/17 Reported 36 UNITS IN AM 66 UNITS IN PM Furosemide 40 Mg Tab 40 Mg PO BID17 30 10/11/16 Rx Lopid (Gemfibrozil) 600 Mg Tab 600 Mg PO BID 06/06/16 Reported Plavix (Clopidogrel Bisulfate) 75 Mg Tab 75 Mg PO QAM 06/06/16 Reported Cordarone (Amiodarone Hcl) 200 Mg Tab 200 Mg PO BID 06/06/16 Reported Metoprolol Tartrate 100 Mg Tab 100 Mg PO BID 10/01/15 Reported Imdur Ext Rel (Isosorbide Mononitrate) 60 Mg Ertab 60 Mg PO QAM 10/01/15 Reported Lyrica (Pregabalin) 25 Mg Cap 25 Mg PO BID 10/01/15 Reported Norvasc (Amlodipine Besylate) 5 Mg Tab 5 Mg PO QAM 10/01/15 Reported Lipitor (Atorvastatin Calcium) 40 Mg Tab 40 Mg PO QAM 10/01/15 Reported Phoslo 667 Mg (Calcium Acetate) 667 Mg Cap 667 Mg PO TIDM 09/02/15 Reported Vital Signs Weight (Kilograms): 100.00 Height (Feet): 5 Height (Inches): 5 Date Time Temp Pulse Resp B/P (MAP) Pulse Ox O2 Delivery O2 Flow Rate FiO2 07/26/17 09:14 36.8 85 20 197/95 (129) 95 Room Air Physical Exam General Appearance: WD/WN, no apparent distress Respiratory/Chest: Auscultation: breath sounds normal Cardiovascular: Heart Auscultation: RRR Abdomen: Bowel Sounds: normal Inspection & Palpation: soft, non-distended, no tenderness, guarding & rebound Assessment and Plan Assessment: 67 yo CF who presents for colonoscopy secondary to history of colon polyps. Plan: Proceed with colonoscopy.
[2017-07-26 10:20] LABS: ISTAT CREATININE 5.3 mg/dl (0.6-1.3); ISTAT IONIZED CALCIUM 0.95 mmol/l (1.12-1.32); ISTAT POTASSIUM 3.3 mEq/L (3.3-5.0)
--- NOTE | 2017-07-26 10:39 | GI REPORT ---
Procedure Date: 07/26/2017 9:57 AM Procedure: Colonoscopy Indications: High risk colon cancer surveillance: Personal history of colonic polyps, High risk colon cancer surveillance: Personal history of colon cancer Medicines: Monitored Anesthesia Care Complications: No immediate complications. Estimated Blood Loss: Estimated blood loss: none. Procedure: Pre-Anesthesia Assessment: - Prior to the procedure, a History and Physical was performed, and patient medications and allergies were reviewed. The patient's tolerance of previous anesthesia was also reviewed. The risks and benefits of the procedure and the sedation options and risks were discussed with the patient. All questions were answered, and informed consent was obtained. Prior Anticoagulants: The patient has taken Plavix (clopidogrel), last dose was 1 day prior to procedure. ASA Grade Assessment: III - A patient with severe systemic disease. After reviewing the risks and benefits, the patient was deemed in satisfactory condition to undergo the procedure. After I obtained informed consent, the scope was passed under direct vision. Throughout the procedure, the patient's blood pressure, pulse, and oxygen saturations were monitored continuously. The scope was introduced through the anus and advanced to the terminal ileum. The colonoscopy was performed without difficulty. The patient tolerated the procedure well. The quality of the bowel preparation was fair. The terminal ileum and the rectum were photographed. Findings: The perianal and digital rectal examinations were normal. A moderate amount of semi-solid stool was found in the entire colon, interfering with visualization. Lavage of the area was performed using a large amount of normal saline, resulting in clearance with fair visualization. Non-bleeding internal hemorrhoids were found during retroflexion. The hemorrhoids were small. Impression: - Preparation of the colon was fair. - Stool in the entire examined colon. - Non-bleeding internal hemorrhoids. - No specimens collected. Recommendation: - Resume previous diet. - Continue present medications. - Repeat colonoscopy in 1 year because the bowel preparation was poor. - Return to primary care physician as previously scheduled. Callum Lin, DO 07/26/2017 10:39:11 AM This report has been signed electronically. Note Initiated On: 07/26/2017 9:57 AM I attest to the content of the Intraoperative Record and orders documented therein, exceptions below
--- NOTE | 2017-07-26 10:42 | Discharge Instructions ---
Endoscopy Patient Instructions Date / Procedure(s) Performed Jul 26, 2017. Colonoscopy Allergy Information Coded Allergies: No Known Allergies (Verified , 07/26/17) Discharge Date / Findings Jul 26, 2017. Internal hemorrhoids Fair bowel prep Medication Instructions OK to resume all medications today as prescribed Reported Home Medications Medications Dose Route/Sig Max Daily Dose Days Date Category Dose Instructions Xalatan 0.005% Oph Kenyatta (Latanoprost) 0.005 % Kenyatta 1 Drops OPB HS 07/16/17 Reported Refresh (Carboxymethylcellulose Sodium) 1 % Rahat 1 Drop OPB DIRECTED 07/16/17 Reported Percocet 5MG/325MG (Oxycodone/Acetaminophen) Tab 1 Tablet PO HS PRN 07/16/17 Reported PAIN Sweet Briar 3 (Sweet Briar-3 Fatty Acids) 1 Cap Cap 1 Cap PO TID 07/16/17 Reported Levothyroxine Sodium 50 Mcg Tab 1 Tab PO QAM 07/16/17 Reported Lantus (Insulin Glargine) 100 Unit/Ml Inj 1 Dose SC BID 07/16/17 Reported 36 UNITS IN AM 66 UNITS IN PM Furosemide 40 Mg Tab 40 Mg PO BID17 30 10/11/16 Rx Lopid (Gemfibrozil) 600 Mg Tab 600 Mg PO BID 06/06/16 Reported Plavix (Clopidogrel Bisulfate) 75 Mg Tab 75 Mg PO QAM 06/06/16 Reported Cordarone (Amiodarone Hcl) 200 Mg Tab 200 Mg PO BID 06/06/16 Reported Metoprolol Tartrate 100 Mg Tab 100 Mg PO BID 10/01/15 Reported Imdur Ext Rel (Isosorbide Mononitrate) 60 Mg Ertab 60 Mg PO QAM 10/01/15 Reported Lyrica (Pregabalin) 25 Mg Cap 25 Mg PO BID 10/01/15 Reported Norvasc (Amlodipine Besylate) 5 Mg Tab 5 Mg PO QAM 10/01/15 Reported Lipitor (Atorvastatin Calcium) 40 Mg Tab 40 Mg PO QAM 10/01/15 Reported Phoslo 667 Mg (Calcium Acetate) 667 Mg Cap 667 Mg PO TIDM 09/02/15 Reported Provider Instructions Activity Restrictions - No exercising or heavy lifting for 24 hours. - Do not drink alcohol the day of the procedure. - Do not drive a car or operate machinery until the day after the procedure. - Do not make any important decisions or sign important papers in 24 hours after the procedure. Following Day: - Return to full activity which may include returning to work/school. Diet Start your diet with liquids and light foods (jello, soup, juice, toast). Then eat your usual diet if not nauseated. Treatment For Common After Affects For mild abdominal pain, bloating, or excessive gas: - Rest - Eat lightly - Lie on right side Follow-Up Information Follow-up with DR. ANTHONY as scheduled Anesthesia Information What You Should Know You have had a procedure that required some medicine to reduce anxiety and discomfort. This treatment is called moderate sedation. After receiving the treatment, you may be sleepy, but you will be able to breathe on your own. The effects of the treatment may last for several hours. Follow these instructions along with Activity/Diet recommendations noted above: * Do NOT do anything where dizziness or clumsiness would be dangerous. * Rest quietly at home today, then you can be up and about tomorrow. * Have a responsible person stay with you the rest of today. * You may have had an I.V. today. If so, you may take the dressing off later today. Recommendations Call your doctor if: * Trouble breathing * Continuous vomiting for more than 24 hours * Temperature above 101 degrees * Severe abdominal pain or bloating * Pain not relieved by pain medicine ordered * There is increased drainage or redness from any incision * A large amount of rectal bleeding greater than 2-3 tablespoons. (If you had a polyp/s removed or have hemorrhoids, a small amount of blood - from the rectum is to be expected.) * You have any unanswered questions or concerns. IN THE EVENT OF A SERIOUS EMERGENCY, GO TO THE NEAREST EMERGENCY ROOM Your discharge instructions were prepared by provider Callum Lin. Patient Instructions Signature Page Umu Bennett Patient (or Guardian) Signature/Date: I have read and understand the instructions given to me by my caregivers. Caregiver/RN/Doctor Signature/Date: The above-named patient and/or guardian has received patient instructions on this date. + Original Patient Signature Page (only) stays with chart. Please make copy for patient.
--- NOTE | 2017-07-26 10:50 | Anesthesiology Progress Note ---
Anesthesia Post Op Note Date & Time Jul 26, 2017 at 10:50 Vital Signs Pain Intensity: 0 Vital Signs Past 12 Hours Date Time Temp Pulse Resp B/P (MAP) Pulse Ox O2 Delivery O2 Flow Rate FiO2 07/26/17 10:34 81 20 168/60 (96) 94 Room Air 07/26/17 09:14 36.8 85 20 197/95 (129) 95 Room Air Notes Mental Status: alert / awake / arousable, participated in evaluation Pt Amnestic to Procedure: Yes Nausea / Vomiting: adequately controlled Pain: adequately controlled Airway Patency, RR, SpO2: stable & adequate BP & HR: stable & adequate Hydration State: stable & adequate Anesthetic Complications: no major complications apparent
[2017-07-26 11:05] VITALS: BP 178/81; PULSE 85; O2SAT 95
== END | disposition home or self-care (01) ==
LOC: C.GI 08:32
PROVIDERS: ATTEND Internal Medicine
DX: Z12.11 Encounter for screening for malignant neoplasm of colon (principal); K64.8 Other hemorrhoids; Z86.010 Personal history of colon polyps; Z85.038 Personal history of other malignant neoplasm of large intestine; I12.9 Hypertensive chronic kidney disease with stage 1 through stage 4 chronic kidney disease, or unspecified chronic kidney disease; E11.22 Type 2 diabetes mellitus with diabetic chronic kidney disease; N18.9 Chronic kidney disease, unspecified; Z90.710 Acquired absence of both cervix and uterus; Z98.890 Other specified postprocedural states; Z79.4 Long term (current) use of insulin; E66.9 Obesity, unspecified; Z68.36 Body mass index [BMI] 36.0-36.9, adult; Z90.89 Acquired absence of other organs

== ENCOUNTER 2017-08-27 06:08 | Day surgery (SDC) | payer BC ==
[~2017-08-27] VITALS: Ht 165.1 cm; Wt 106.0 kg
[~2017-08-27 06:08] MED LIST changes: +CEFAZOLIN 1000MG IV PUSH 7.5 ML IV SCH; +CEFAZOLIN 2000MG IV PUSH 15 ML IV SCH; +D5W AND 1/4NSS 1000 ML IV SCH; -LIDOCAINE HCL 2% 2 ML VIAL (20MG/ML) ONE; -MIDAZOLAM HCL 1 MG/ML 2ML VIAL ONE; -ONDANSETRON INJ 2 MG/ML 2 ML VIAL ONE; -PROPOFOL IV EMULSION 10 MG/ML 20 ML VIAL IV ONE; -SODIUM CHLORIDE 0.9% 500ML 500 ML IV ONE
[2017-08-27 06:48] VITALS: BP 193/91; PULSE 90; TEMP 36.7; O2SAT 93; Ht 165.1 cm; Wt 106.0 kg
--- NOTE | 2017-08-27 07:05 | History and Physical ---
History & Physical Date of Service Aug 27, 2017. History & Physical CC: End stage renal disease, malfunctioning fistula HPI: Ms. Bennett is a 64-year-old obese female who survived colon cancer surgery. She has end-stage renal disease and now has a functioning fistula which is not running well on dialysis ALLERGIES: None known. MEDICATIONS: See med rec PAST MEDICAL HISTORY: Positive for diabetes, hypertension, end-stage renal disease, known colon cancer. PAST SURGICAL HISTORY: Tonsillectomy, hysterectomy and colon resection. FAMILY HISTORY: Positive for heart disease, hypertension, cancer, diabetes, tuberculosis, peripheral vascular occlusive disease and stroke. SOCIAL HISTORY: She does not smoke. She does not drink. REVIEW OF SYSTEMS: Ten systems were reviewed. Her only complaint was shortness of breath and generalized weakness that occurred once. She does have pain with walking but it does not sound like claudication. PHYSICAL EXAMINATION: The patient is awake, oriented x3, she is in no apparent distress. She is morbidly obese. Head and neck were within normal limits, no carotid bruits. Lungs are clear. Heart had a regular rate and rhythm. Abdominal exam is benign. I could not feel aortic pulsation due to the body habitus. Vascular exam: Radials are +2 bilaterally. Femorals are +2 bilaterally. Neurologic exam is grossly intact. IMPRESSION: End-stage renal disease. Malfunctioning fistula PLAN: Patient is admitted for a fistulogram and possible intervention. I have discussed the risks options and benefits of the procedure with the patient. The patient understands the risks options and benefits and agrees to the procedure.
[2017-08-27] MEDS ORDERED: FENTANYL CITRATE INJ 50 MCG/1 ML 2 ML VIAL ONE (07:17)
[2017-08-27] MEDS ORDERED: MIDAZOLAM HCL 1 MG/ML 2ML VIAL ONE (07:18)
--- NOTE | 2017-08-27 08:11 | Pre Sedation Assessment ---
Pre Sedation Assessment General Date of Sedation: Aug 27, 2017. Vital Signs Past 12 Hours Date Time Temp Pulse Resp B/P (MAP) Pulse Ox O2 Delivery O2 Flow Rate FiO2 08/27/17 06:48 36.7 90 24 193/91 (125) 93 Room Air Pre-Sedation Airway Assessment Smoking Status: Never Smoker Hx of Sleep Apnea: No Short Thick Neck: Yes Thyro-mental Distance: < or =3 Finger Breadths Oral Cavity: WNL Mallampati Classification: Class III ASA Classification: Class III NPO Status Date of Last Intake of Fluids: Aug 26, 2017 Time of Last Intake of Fluids: 1999 Date of Last Intake of Solids: Aug 26, 2017 Time of Last Intake of Solids: 1999 Procedure Planning Contraindications for Sedation: None Current Medications Reviewed: Yes Notes The planned sedation has been discussed with the patient. Informed Consent was obtained. I have identified the patient, determined the appropriateness of sedation and have assessed the patient immediately prior to the procedure. All medicine(s) and interventions are by my order.
[2017-08-27] MEDS ORDERED: LIDOCAINE HCL 1% 20 ML VIAL INJ ONE (08:45)
--- NOTE | 2017-08-27 08:55 | [facility] Operative Report ---
Operative Report Operative Date Aug 27, 2017. Pre-Operative Diagnosis Malfunctioning Fistula Post-Operative Diagnosis Malfunctioning Fistula Procedure(s) Performed Fistulogram Surgeon Dr. Dugan Patient Case Coordinator Surgeon(s) None Estimated Blood Loss 0 Findings No stenosis seen Specimens None Drains None Anesthesia Type IV Sedat Cons RN Only Complication(s) none Disposition no Indications This is a 67-year-old female with a left upper arm fistula. Dialysis unit claims she is having difficulty with running at dialysis. Fistulogram was recommended. I have discussed the risks options and benefits of the procedure with the patient. The patient understands the risks options and benefits and agrees to the procedure. Description of Procedure The patient was taken to the angiogram suite and placed in the supine position. The left arm was then prepped and draped in a sterile manner. Local anesthetic was administered and a percutaneous puncture was then made of the proximal portion of the left arm AV fistula using micropuncture technique. Micropuncture wire and sheath were then inserted. A fistulogram was then performed. The fistulogram showed the fistula be widely patent. 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 There is no stenosis seen in the arteriovenous fistula from the arterial anastomosis up through the superior vena cava. The sheath was then pulled and pressure was applied. Adequate hemostasis was obtained. The patient left the angiogram suite in good condition and tolerated the procedure well. I attest to the content of the Intraoperative Record and any orders documented therein. Any exceptions are noted below.
--- NOTE | 2017-08-27 08:57 | Discharge Instructions ---
Discharge Instructions Date of Service Aug 27, 2017. Visit Reason for Visit: End Stage Renal Disease -On Hemodialysis Discharge Discharge Diagnosis / Problem: Normal fistula Discharge Goals Goal(s): Diagnostic testing Activity Recommendations Activity Limitations: resume your previous activity Anesthesia . Post Anesthesia Instructions: If you have had General Anesthesia or IV Sedation: * Do not drive today. * Resume driving when surgeon permits. * Do not make important decisions or sign legal documents today. * Call surgeon for: 1. Temperature elevations greater than 101 degrees F. 2. Uncontrollable pain. 3. Excessive bleeding. 4. Persistent nausea and vomiting. 5. Medication intolerance (nausea, vomiting or rash). * For nausea and vomiting use only clear liquids such as: tea, soda, bouillon until nausea subsides, then gradually increase diet as tolerated. * If you have any concerns or questions, call your surgeon's office. If physician is unavailable and it is an emergency, call 911 or go to the nearest emergency room. . Instructions / Follow-Up Instructions / Follow-Up Call [phone] with any questions or concerns. SPECIAL CARE INSTRUCTIONS: Medications: * Continue to take your medications as directed. If you have been given a prescription for Plavix, please fill it immediately and take as directed. Incision Care: * Your puncture site may have some bruising and minor swelling for about one week. * You will have a small dressing covering your puncture site. You may remove the dressing after 24 hours and shower. You may let the warm soapy water run over it, but be sure to dry the puncture site well and keep it dry. * DO NOT IMMERSE THE INCISION IN A TUB/POOL/etc. UNTIL HEALED. * Puncture sites should be kept covered with a band-aid until it begins to heal. Restrictions: * Depending on whether you leg or arm was punctured to access the arteries, you will be required to lay flat, hold your arm still, or both, for about 4 hours after the procedure to prevent bleeding. * Limit your activity for the first 48 hours. You may walk and go up and down steps. Avoid excessive bending or movement at the puncture site. Possible Complications: * Excessive Swelling - after blood flow is improved you may notice increased swelling in the lower legs. This is a normal response. This usually depends on the amount of blockages in the leg, how long they have been there prior to your procedure and how much blood flow was restored. Elevating your legs will help to improve this. Please notify our office ([phone] ) if the swelling does not go away after lying in bed overnight. * Infection/Drainage/Bleeding - Drainage or bleeding from the puncture site should be minimal. If you have excessive bleeding or drainage, call our office ([phone]) right away. * Pain - You may experience some mild pain or soreness at your puncture site. If your pain does not improve, please contact our office ([phone]). Call your doctor and seek emergent treatment if you develop: * Temperature above 101 degrees * Any fever or chills * Any redness or purulent drainage from the puncture site * Any new dusky/blue colored toes or feet with coolness or sharp or aching pain. SKIN IRRITATION: * You may experience some redness and/or swelling in the area where radiation was administered. If any skin irritation occurs, please contact your family physician. FOLLOW UP VISIT: Keep any scheduled doctor appointments. Diet Recommendations Recommended Home Diet: no limitations Procedures Procedures Performed: Fistulogram Pending Studies Studies pending at discharge: no Medical Emergencies . Who to Call and When: Medical Emergencies: If at any time you feel your situation is an emergency, please call 911 immediately. . Non-Emergent Contact Non-Emergency issues call your: Surgeon . . "Provider Documentation" section prepared by Kleber Dugan. .
[2017-08-27] MEDS ORDERED: OPTIRAY 300 IV ONE (08:58)
[2017-08-27 09:05] VITALS: BP 198/95; PULSE 88; TEMP 36.4; O2SAT 94
== END 2017-08-27 09:40 | disposition home or self-care (01) ==
LOC: C.ACU 06:08
PROVIDERS: ATTEND Surgery Vascular Surgery
DX: I12.0 Hypertensive chronic kidney disease with stage 5 chronic kidney disease or end stage renal disease (principal); N18.6 End stage renal disease; E11.9 Type 2 diabetes mellitus without complications; E66.01 Morbid (severe) obesity due to excess calories; Z68.38 Body mass index [BMI] 38.0-38.9, adult; Z85.038 Personal history of other malignant neoplasm of large intestine; Z90.49 Acquired absence of other specified parts of digestive tract; Z82.49 Family history of ischemic heart disease and other diseases of the circulatory system; Z83.3 Family history of diabetes mellitus

== ENCOUNTER → 2018-02-18 | Outpatient (CLI) | payer BC ==
[~2018-02-18] MED LIST changes: -CEFAZOLIN 1000MG IV PUSH 7.5 ML IV SCH; -CEFAZOLIN 2000MG IV PUSH 15 ML IV SCH; -D5W AND 1/4NSS 1000 ML IV SCH; -GEMF600T3 PO; +GEMF600T5 PO
--- NOTE | 2018-02-21 13:54 | MAMMOGRAPHY REPORT ---
BILATERAL DIGITAL SCREENING MAMMOGRAM TOMOSYNTHESIS WITH CAD: 02/18/2018 CLINICAL HISTORY: Routine screening. Patient has no complaints. TECHNIQUE: Breast tomosynthesis in addition to standard 2D mammography was performed. Current study w as also evaluated with a Computer Aided Detection (CAD) system. COMPARISON: Comparison is made to exams dated: 02/17/2016 mammogram, 02/17/2017 mammogram, 02/13/2015 m ammogram, 12/14/2013 mammogram, 12/12/2012 mammogram, and 12/10/2011 mammogram - [facility] enter. BREAST COMPOSITION: The tissue of both breasts is almost entirely fatty. FINDINGS: No suspicious masses, calcifications, or areas of architectural distortion are noted in either breast . There has been no significant interval change compared to prior exams. Again noted is prominence o f the vasculature in the left breast and mild diffuse left breast skin thickening and trabecular jeniffer a, not significantly changed and likely related to the patient's dialysis. A small asymmetry within the left lateral breast on the cc view has the appearance of normal fibroglandular tissue on the rodney synthesis images. IMPRESSION: ACR BI-RADS CATEGORY 2: BENIGN There is no mammographic evidence of malignancy. A 1 year screening mammogram is recommended.( 019) The patient will receive written notification of the results. Some breast cancers are not detected with mammography. A negative mammographic report should not norm y biopsy if a clinically suggestive mass is present. Aleah Blanco M.D. ah/:02/19/2018 10:50:00 Corsetier: Alycia Garcia RT(R)(M)(BD), [facility] letter sent: Normal 1/2 BI-RADS Code: ACR BI-RADS Category 2: Benign
== END | disposition home or self-care (01) ==
LOC: C.MAMM 09:21
PROVIDERS: ATTEND Nurse Practitioner Family
DX: Z12.31 Encounter for screening mammogram for malignant neoplasm of breast (principal)

== ENCOUNTER 2019-02-03 12:53 | Inpatient (IN) ==
--- NOTE | 2019-02-03 14:12 | Emergency Department Note ---
ED Visit Note I assisted Dr. Greenberg in the evaluation and management of this patient. Please see her note for complete visit details. Cyndi Rojas MD PGY3 [facility] Residency at [facility] . Resident Activity Tracking Resident Involvement: Resident Care Provided Care Provided: Adult ED
--- NOTE | 2019-02-03 14:18 | XRay Report ---
XR chest 1V portable HISTORY: dyspnea COMPARISON: Chest 05/14/2018. FINDINGS: The heart remains mildly enlarged. There are low lung volumes. Mild central pulmonary vascu lar congestion without overt edema. No pneumothorax. No pleural effusions. A few bibasilar linear den sities. IMPRESSION: 1. Mild cardiomegaly with mild pulmonary vascular congestion. 2. Bibasilar linear densities are nonspecific but may represent atelectasis given the low lung volume s. Electronically signed by: Leodan Mccray M.D. 02/03/2019 2:17 PM
[2019-02-03 14:35] LABS: Basophils # (auto) 0.02 K/uL (0-0.2); Basophils % (auto) 0.2 %; Eosinophils # (auto) 0.05 K/uL (0-0.5); Eosinophils % (auto) 0.5 %; Hematocrit (blood only) 33.7 % (37-47); Hemoglobin 11.4 g/dL (12.0-16.0); Immature Granulocytes # (auto) 0.04 K/uL (0.00-0.02); Immature Granulocytes % (auto) 0.4 %; Lymphocytes # (auto) 0.95 K/uL (1.2-3.4); Lymphocytes % (auto) 8.6 %; Mean Corpuscular Hgb Conc 33.8 g/dL (32-36); Mean Corpuscular Volume 95.7 fL (80-100); Mean Platelet Volume 9.4 fL (7.4-10.4); Monocytes % (auto) 5.4 %; Neutrophils % (auto) 84.9 %; Platelet Count 146 K/uL (130-400); RDW Standard Deviation 55.7 fL (36.4-46.3); Red Blood Count 3.52 M/uL (4.2-5.4); White Blood Count 11.06 K/uL (4.8-10.8)
--- NOTE | 2019-02-03 14:48 | CT Scan Report ---
CT head/brain wo con CLINICAL HISTORY: 68 years-old Female with acute confusion. Acutely altered mental status TECHNIQUE: Multiple axial CT images of the head were obtained without contrast. A dose lowering tech nique was utilized adhering to the principles of ALARA. CT DOSE: 3050.19 mGy.cm COMPARISON: CT maxillofacial 10/07/2016 FINDINGS: No acute intracranial hemorrhage, midline shift, intracranial mass, hydrocephalus, territorial ischem ia or abnormal extra-axial collection. Mild age-related involutional changes. Mild degree of patchy w shimon matter hypodensities suggest chronic microvascular ischemic disease. Cerebral vascular calcifica tions are noted. The calvarium is intact. Mild mucosal thickening of the maxillary, ethmoid and sphenoid sinuses. Mod erate right mastoid effusion. Left mastoid air cells are clear. Soft tissues are unremarkable. Prior bilateral cataract repair. Soft tissue vascular calcifications. IMPRESSION: 1. No acute intracranial abnormality. 2. Moderate right mastoid effusion with mild paranasal sinus disease. The above report was generated using voice recognition software. It may contain grammatical, syntax o r spelling errors. Electronically signed by: Anastacio Dyer M.D. 02/03/2019 2:47 PM
[2019-02-03 15:08] LABS: Albumin Globulin Ratio 0.7 (0.9-2); Albumin Level 3.2 gm/dl (3.4-5.0); BUN Creatinine Ratio 3.8 (10-20); Bilirubin,Total 0.5 mg/dl (0.2-1); Calcium 9.4 mg/dl (8.5-10.1); Creatinine Clr Calc Pharmacy 12.2 ml/min; Est GFR (African American) 8.6; Est GFR (Non-African American) 7.5; Globulin 4.5 gm/dl (2.5-4.0); Potassium 5.7 mmol/L (3.5-5.1); Total Protein 7.7 gm/dl (6.4-8.2)
--- NOTE | 2019-02-03 15:11 | CT Scan Report ---
CT OF THE ABDOMEN AND PELVIS WITHOUT CONTRAST CLINICAL HISTORY: Vomiting. COMPARISON STUDY: PET/CT January 15, 2014. Abdominal series May 24, 2016. TECHNIQUE: Axial images of the abdomen and pelvis were obtained without IV contrast. Images were revi ewed in the axial, sagittal, and coronal planes. Automated exposure control was utilized for the peri dy. A dose lowering technique was utilized adhering to the principles of ALARA. FINDINGS: The heart is moderately enlarged. Collaterals within the left breast are incidentally noted . Several hypodense hepatic lesions are too small characterize but are probably benign. Unenhanced im ages of the spleen, adrenal glands and pancreas are unremarkable. Stones versus sludge within the gal lbladder noted. There is no pericholecystic infiltration. There is moderate to marked bilateral renal cortical thinning. No hydronephrosis. This extensive vascular calcification. A ventral hernia contai ns a portion of the transverse colon. Additional fat-containing ventral hernias are noted. A lower ab dominal ventral hernia contains several small bowel loops. No pneumatosis, free air or portal venous gas is present. The appendix is likely surgically absent. Postoperative findings within the right col on are noted. IMPRESSION: 1. No acute process within the abdomen or pelvis on unenhanced exam. 2. Several bowel containing ventral hernias without obstruction. 3. Stones versus sludge within the gallbladder. Mild gallbladder distention. No pericholecystic infil tration. No convincing CT evidence for acute cholecystitis although a right upper quadrant ultrasound could be obtained if right upper quadrant pain. 4. Moderate to marked bilateral renal cortical thinning. No hydronephrosis. Electronically signed by: Devan Galeano M.D. 02/03/2019 3:10 PM
[2019-02-03] MEDS ORDERED: NITROGLYCERIN SL 0.4 MG/TAB TAB SL PRN (17:41)
[2019-02-03] MEDS ORDERED: ZOLPIDEM TARTRATE 5 MG TAB PO PRN (17:41)
[2019-02-03 18:26] LABS: INR 1.2 (0.9-1.1); Prothrombin Time 11.9 Seconds (9.0-12.0)
[2019-02-03] MEDS ORDERED: INSULIN GLARGINE SOLOSTAR 100 UNITS/ML 3 ML PEN SQ SCH ×2 (18:58→21:00)
[2019-02-03] MEDS ORDERED: GLUCAGON FOR INJ 1 MG VIAL IM PRN (20:00)
[2019-02-03] MEDS ORDERED: CARBOHYDRATES FOR HYPOGLYCEMIA PO PRN (20:00)
[2019-02-03] MEDS ORDERED: GLUCOSE 40% GEL 15 GM TUBE PO PRN (20:00)
[2019-02-03] MEDS ORDERED: GLUCOSE 10 TABS/TUBE PO PRN (20:00)
[2019-02-03] MEDS ORDERED: DEXTROSE 50% 50 ML SYRINGE IV PRN (20:00)
[2019-02-03] MEDS: OMEGA-3 (PURIFIED FISH OIL) 1 GM CAP PO SCH (20:51)
[2019-02-03] MEDS: ASPIRIN 81 MG ECTAB PO SCH (20:51)
[2019-02-03] MEDS: AMIODARONE 200 MG TAB PO SCH (20:51)
[2019-02-03] MEDS: NEPHROCAPS PO SCH (20:52)
[2019-02-03] MEDS: CLOPIDOGREL BISULFATE 75 MG TAB PO SCH (20:52)
[2019-02-03] MEDS: ATORVASTATIN 40 MG TAB PO SCH (20:52)
[2019-02-03] MEDS: METOPROLOL TARTRATE 100 MG TAB PO SCH (20:55)
[2019-02-03] MEDS: LEVOTHYROXINE SODIUM 50 MCG TABLET PO SCH (20:56)
[2019-02-03] MEDS: LATANOPROST 0.005% OP SOLN 2.5 ML BTL OPB SCH (20:56)
[2019-02-03] MEDS: HEPARIN SOD 5,000 UNIT/0.5 ML VIAL SQ SCH (20:57)
[2019-02-03] MEDS ORDERED: FUROSEMIDE 40 MG TAB PO SCH (21:00)
[2019-02-03] MEDS ORDERED: INSULIN GLARGINE SOLOSTAR 100 UNITS/ML 3 ML PEN SQ ONE (21:00)
[2019-02-03] MEDS: PREGABALIN 25 MG CAP PO SCH (21:00)
[2019-02-03] MEDS ORDERED: PHARMACY GLYCEMIC MGMT CONSULT PRN (21:32)
[2019-02-03] MEDS: INSULIN ASPART 100 UNITS/ML 3 ML PEN SC SCH ×2 (21:43→23:50)
[2019-02-03] MEDS: ACETAMINOPHEN 325 MG TAB PO PRN (22:14)
[2019-02-03] MEDS: OXYCODONE/ACETAMINOPHEN 5mg/325mg TAB PO PRN (22:16)
--- NOTE | 2019-02-03 22:52 | History & Physical Report ---
Date of Service February 03, 2019 Assessment & Plan (1) Elevated troponin: Admit to medicine on telemetry -Vital signs every 4 hours -Troponin x3 with EKGs and trend down. Troponin could be elevated because of end-stage renal disease and patient also does not report any chest pain at this time. -Follow-up electrolytes. Patient has hyperkalemia of 5.7 and needs hemodialysis. Consulted nephrology. -Strict in and out -Daily weight -Hyponatremia of 130 most likely due to volume overload. Follow-up electrolytes. Dialysis is definitely going to help with electrolyte-based disbalance. -DVT prophylaxis heparin 5000 units every 12 SC -Full code Present on Admission?: Yes (2) Dialysis patient: She would need to have hemodialysis tomorrow. Patient has dialysis Wednesday and Wednesday. Place nephrology consult. Present on Admission?: Yes (3) History of amputation below knee: Stable now. Stump looks clean dry and intact Present on Admission?: Yes (4) Sleep apnea: Patient new patient is using CPAP at home. She was recommended to bring her own CPAP for sleep apnea. Present on Admission?: Yes (5) Hyperlipidemia: Stable, continue atorvastatin 40 mg p.o. nightly Present on Admission?: Yes (6) Hypothyroidism: Stable continue levothyroxine 50 MCG's p.o. nightly Present on Admission?: Yes (7) Congestive heart failure with LV diastolic dysfunction, NYHA class 3: Patient could be tired because of acute exacerbation of congestive heart failure. Her BNP is elevated above 10,000 Hemodialysis will definitely help to reduce the volume overload Strict in and out and daily weight Continue home medicine amiodarone, aspirin, furosemide , beta-blockers Present on Admission?: Yes (8) Diabetes mellitus type 2 with complications: Glycemic control per pharmacy. Accu-Cheks before meals and at bedtime Sliding scale insulin Home dose of Lantus decreased for one third as well as of short-acting with meals to decrease possibility of hypoglycemia since patient in the hospital eats less. 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 Patient reports that for the past several days she is feeling very weak and that this morning when she went for hemodialysis she started to have palpitations and she did not feel herself. Patient is next next to for her and states that patient is more fatigued recently and that she is avoiding to do anything and that she is spending lots of time resting in bed. Patient denies fever chills chest pain shortness of breath abdominal pain frequency urgency and or any other symptoms such as nausea or vomiting. But she reports that she gains some weight weight and she feels fatigued. Patient labs were reviewed and she has white blood cell count of 11.6, hemoglobin 11.4 hematocrit 33.7, platelets 146, sodium 130 potassium 5.7 chloride of 91 BUN of 21 creatinine of 5.41 BUN/creatinine ratio of 3.8, blood glucose of 291, trop[place] 0[place] [address]. Chest x-rays shows mild cardiomegaly with mild pulmonary vascular congestion. Bibasilar liner densities are nonspecific but may represent atelectasis giving the longer lung volumes. CT head shows no acute intracranial abnormality moderate right mastoid effusion with mild paranasal sinuses. The case was discussed and patient is accepted to [facility] telemetry for further evaluation and treatment of acute congestive heart failure. EKG shows sinus tachycardia with right bundle branch block. Rhythm of [address] segment elevation or depression. Patient denies chest pain. Allergies Allergy/AdvReac Type Severity Reaction Status Date / Time No Known Allergies Allergy Verified 02/03/19 15:05 Home Medications Home Medications Medication Instructions Recorded Confirmed Type amiodarone 200 mg PO BID 05/14/18 02/03/19 History atorvastatin 40 mg PO QAM 05/14/18 02/03/19 History calcium acetate 667 mg PO TIDM 05/14/18 02/03/19 History furosemide 40 mg PO BID 05/14/18 02/03/19 History latanoprost 1 drp OPB HS 05/14/18 02/03/19 History levothyroxine 50 mcg PO QAM 05/14/18 02/03/19 History omega-3 acid ethyl esters 1 g PO TID 05/14/18 02/03/19 History aspirin [Aspir-81] 81 mg PO HS 07/23/18 02/03/19 History cholecalciferol (vitamin D3) 50,000 units PO WK 07/23/18 02/03/19 History metoprolol tartrate 100 mg tablet 100 mg PO BID #180 tab 12/30/18 02/03/19 Rx oxycodone-acetaminophen 5 mg-325 1 tab PO HS PRN #30 tab 01/11/19 02/03/19 Rx mg tablet pregabalin 25 mg capsule 25 mg PO BID #60 cap 01/11/19 02/03/19 Rx tramadol 50 mg tablet 50 mg PO DAILY PRN tab 01/11/19 02/03/19 History vitamin B complex and vitamin C 1 cap PO QAM 01/11/19 02/03/19 History no.20-folic acid 1 mg capsule Lantus Solostar U-100 Insulin 36 unit SUBCUT QAM 01/16/19 02/03/19 History Lantus Solostar U-100 Insulin 66 unit SUBCUT HS 01/16/19 02/03/19 History clopidogrel 75 mg PO QAM 01/16/19 02/03/19 History insulin lispro [Humalog KwikPen 10 - 20 unit SUBCUT TIDM 01/16/19 02/03/19 History Insulin] lidocaine-prilocaine 1 applic TOPICAL UD 02/03/19 02/03/19 History Past Med/Surg History Medical History Colon cancer screening History of diabetic ulcer of foot (Chronic) Dialysis patient (Chronic) Diabetes mellitus type 2 with complications (Chronic) Diabetic nephropathy (Chronic) Left posterior fascicular block (LPFB) (Chronic) Sleep apnea (Chronic) does not use CPAP RBBB (right bundle branch block) (Chronic) Paroxysmal atrial fibrillation (Chronic) on plavix follows with Kip Fletcher Hyperlipidemia (Chronic) Hypothyroidism (Chronic) Anemia (Chronic 05/24/13) Paroxysmal supraventricular tachycardia (Chronic) PVD (peripheral vascular disease) (Chronic) Hypertension (Chronic) ESRD on dialysis (Chronic) dialysis--tue/thur/sat History of colon cancer (Chronic) 2008--sx, chemo Diabetes mellitus (Resolved) Diabetic peripheral neuropathy associated with type 2 diabetes mellitus (Resolved) GI (gastrointestinal bleed) (Resolved 05/24/13) Hypoxia (Resolved) Palpitations (Resolved) SIRS (systemic inflammatory response syndrome) (Resolved) AVNRT (AV alondra re-entry tachycardia) Chronic diastolic CHF (congestive heart failure) Gout Obesity Surgical History 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 of right BKA (Resolved) Arteriovenous fistula left arm History of bilateral cataract extraction History of bladder surgery per pt half of bladder removed during colectomy History of colectomy 4 ft removed History of colonoscopy History of colostomy History of colostomy reversal History of tonsillectomy and adenoidectomy History of total hysterectomy with bilateral salpingo-oophorectomy (BSO) History of wisdom tooth extraction Family History Mother Breast cancer Grandfather Myocardial infarction Father Family history of diabetes mellitus Other No family history of adverse response to anesthesia Social History Preferred Language: Finnish Communication Ability: Effective Visual Impairment: No Limitations Fire Watcher Required: No Beliefs That Will Affect Care: None marital status: Current Living Situation: Spouse current occupational status: retired Feels Safe at Home: Yes Safety Concerns: Feels Safe At This Time Smoking Status: Never smoker Second Hand Exposure: No ; Hx Alcohol Use: No Hx Substance Use: No Review of Systems Review of Systems: All systems reviewed & are unremarkable except as noted in HPI & below Cardiovascular: + dyspnea at rest and + palpitations Physical Exam Constitutional: WD/WN, vitals as above well developed and + obese Eyes: PERRL, conjunctivae normal, anicteric sclerae ENMT: external ear and nose normal, oropharynx normal Neck: trachea midline, no thyromegaly Respiratory: + hyperresonance to percussion Auscultation: + wheezes Cardiovascular: Heart Sounds: normal S1, normal S2 and + murmur Palpation: + palpable S3 Gastrointestinal (Abdomen): normal bowel sounds, soft, nontender, no hepatosplenomegaly Musculoskeletal: no cyanosis or clubbing, extremities motor strength 5/5 Right lower extremity BKA clean dry and intact Skin: no rashes, warm and dry Neurologic: patellar DTR's 2+ bilat, sensation intact Psychiatric: A+Ox3, euthymic affect Answers to questions appropriately reports feeling fatigued Lymphatic: no cervical or axillary lymphadenopathy Results & Data Vital Signs (Past 12 Hours) Vital Signs Temp Pulse Pulse Pulse Resp BP BP 02/03/19 19:56 97 H 02/03/19 19:40 37.3 C 96 H 20 162/70 H 02/03/19 17:18 99 H 20 140/69 02/03/19 14:55 95 H 20 174/86 H 02/03/19 14:03 96 H 21 02/03/19 14:00 96 H 20 163/78 H 02/03/19 13:05 98 H 21 02/03/19 13:04 37.5 C 100 H 21 182/90 H Pulse Ox 02/03/19 19:56 02/03/19 19:40 96 02/03/19 17:18 94 02/03/19 14:55 93 02/03/19 14:03 94 02/03/19 14:00 92 02/03/19 13:05 93 02/03/19 13:04 86 L Code Status & VTE Plan Code Status Full code VTE Prophylaxis Plan VTE Prophylaxis will be ordered: Yes PG Care Time/CCT Total # of Minutes Spent Total Time Spent with Patient: Total time spent is greater than 50% in coordination of care (as documented) at patient's floor/unit and/or counseling patient: (1) Hypothyroidism Hypothyroidism type: acquired Qualified Code(s): E03.9 - Hypothyroidism, unspecified
[2019-02-04] MEDS: INSULIN ASPART 100 UNITS/ML 3 ML PEN SC SCH ×5 (03:21→20:34)
[2019-02-04] MEDS: HEPARIN SOD 5,000 UNIT/0.5 ML VIAL SQ SCH ×3 (05:44→20:40)
[2019-02-04] MEDS: LEVOTHYROXINE SODIUM 50 MCG TABLET PO SCH (06:00)
[2019-02-04 06:11] LABS: Basophils # (auto) 0.01 K/uL (0-0.2); Basophils % (auto) 0.1 %; Eosinophils # (auto) 0.09 K/uL (0-0.5); Eosinophils % (auto) 0.9 %; Hematocrit (blood only) 32.1 % (37-47); Hemoglobin 10.4 g/dL (12.0-16.0); Immature Granulocytes # (auto) 0.03 K/uL (0.00-0.02); Immature Granulocytes % (auto) 0.3 %; Lymphocytes # (auto) 1.59 K/uL (1.2-3.4); Lymphocytes % (auto) 15.7 %; Mean Corpuscular Hgb Conc 32.4 g/dL (32-36); Mean Corpuscular Volume 97.9 fL (80-100); Mean Platelet Volume 9.5 fL (7.4-10.4); Monocytes # (auto) 0.69 K/uL (0.11-0.59); Monocytes % (auto) 6.8 %; Neutrophils # (auto) 7.73 K/uL (1.4-6.5); Neutrophils % (auto) 76.2 %; Platelet Count 135 K/uL (130-400); RDW Coefficient of Variation 16.2 % (11.5-14.5); RDW Standard Deviation 57.7 fL (36.4-46.3); Red Blood Count 3.28 M/uL (4.2-5.4); White Blood Count 10.14 K/uL (4.8-10.8)
--- NOTE | 2019-02-04 06:42 | Pharmacy Report ---
Pharmacy Glycemic Short Note 2 - Date of Service February 04, 2019 - Glycemic Short BSG Results (Last 24 hours): 02/03/19 02/03/19 02/03/19 14:14 20:31 23:38 Glucose 255 H POC Glucose 291 H 244 H 02/04/19 03:18 Glucose POC Glucose 192 H OUTPATIENT ANTIDIABETIC REGIMEN: * Lantus 36 units in AM,66 units q HS * Insulin lispro 10-20 TIDm ASSESSMENT: Pt admitted with N/V, ate dinner 02/04 without any insulin coverage ordered, this contributed to bedtime hyperglycemia PLAN FOR INPATIENT GLYCEMIC CONTROL: * Basal insulin * Lantus 55 units SQ x 1 8/9 PM * Bolus insulin * NovoLog per scale ACHS * Goal Range: Low 120 mg/dL - High 160 mg/dL * Correction Factor: 25 mg/dL/unit * Nutritional / Prandial insulin per carb ratio of 1 unit per 9 grams CHO consumed
[2019-02-04 07:01] LABS: Albumin Globulin Ratio 0.6 (0.9-2); Albumin Level 2.7 gm/dl (3.4-5.0); BUN Creatinine Ratio 4.4 (10-20); Bilirubin,Total 0.6 mg/dl (0.2-1); Calcium 8.5 mg/dl (8.5-10.1); Creatinine Clr Calc Pharmacy 9.6 ml/min; Est GFR (African American) 6.7; Est GFR (Non-African American) 5.7; Globulin 4.2 gm/dl (2.5-4.0); Total Protein 6.9 gm/dl (6.4-8.2)
[2019-02-04 07:39] LABS: Estimated Average Glucose 200 mg/dl; Hemoglobin A1C 8.6 % (4.5-5.6)
[2019-02-04] MEDS: CLOPIDOGREL BISULFATE 75 MG TAB PO SCH (07:46)
[2019-02-04] MEDS: ATORVASTATIN 40 MG TAB PO SCH (07:46)
[2019-02-04] MEDS: OMEGA-3 (PURIFIED FISH OIL) 1 GM CAP PO SCH ×3 (07:47→20:37)
[2019-02-04] MEDS: NEPHROCAPS PO SCH (07:47)
[2019-02-04] MEDS: CALCIUM ACETATE 667 MG CAP PO SCH ×3 (07:48→18:23)
[2019-02-04] MEDS: PREGABALIN 25 MG CAP PO SCH ×2 (07:52→20:46)
[2019-02-04] MEDS: INSULIN GLARGINE SOLOSTAR 100 UNITS/ML 3 ML PEN SC SCH ×2 (07:55→20:32)
[2019-02-04] MEDS ORDERED: NON-FORMULARY MEDICATION (Insulin Lispro [Humalog Kwikpen Insulin] 0 UNITS) SQ SCH (08:00)
[2019-02-04] MEDS ORDERED: LIDOCAINE/PRILOCAINE 2.5% EA CRM EXT SCH (09:00)
[2019-02-04] MEDS ORDERED: PERFLUTREN LIPID MICROSPHERE (DEFINITY) IV ONE (10:03)
[2019-02-04] MEDS ORDERED: LIDOCAINE/PRILOCAINE 2.5% EA CRM EXT PRN (10:11)
[2019-02-04] MEDS: FUROSEMIDE 20 MG in SYRINGE 0 ML IV SCH ×2 (10:18→20:35)
[2019-02-04] MEDS: AMIODARONE 200 MG TAB PO SCH ×2 (10:18→20:38)
[2019-02-04] MEDS: METOPROLOL TARTRATE 100 MG TAB PO SCH ×2 (10:18→20:36)
--- NOTE | 2019-02-04 11:07 | Nephrology Consultation ---
Date of Consultation February 04, 2019 Assessment & Plan (1) ESRD on dialysis: 68-year-old female with end-stage renal disease secondary to hypertension and safe nephropathy, on hemodialysis Wednesday, , Wednesday. Admitted with generalized weakness and volume overload. On admission troponin was just mildly elevated but she did not have any symptoms suggestive of acute coronary event. Although she has diastolic dysfunction this is more likely volume overload with noncompliance with fluid restriction and dialysis than to congestive heart failure. She has chronic history of high weight gain in between dialysis treatment. She left more than 2 kg above her dry weight after last dialysis. She did have fever and chills on admission which currently resolved. Electrolyte has been acceptable. Blood pressure well controlled. Denies significant shortness of breath. Unclear etiology for F/C on admission as well as overall not doing well over last few days. Although she is volume overloaded, that does not necessarily explain all her s/s. --will schedule for dialysis as her regular dialysis schedule today, aim for 3 L UF and challenge if tolerated. If she remained significantly above her dry weight, will try 1 extra treatment Wednesday mainly for UF if still in patient. --limit fluid intake less than 1 L per day, avoid high salt food --continue on phosphate binders and renal caps daily --if febrile again may need further eval including Blood Cx Will follow Thank you for allowing me to participate in your patient's care. 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 Nephrology consult was requested to manage end-stage renal disease and hemodialysis while in hospital. EMR records including labs and imaging reviewed in detail during patient's visit. Umu had her last dialysis treatment , had 4 hours treatment and had more than 3 L UF. She has history of excessive weight gain in between dialysis. Her estimated dry weight is 103.5 kg. At the end of dialysis her weight was 105.2 kg as she was already significantly above her dry weight. She reported it having some chills and overall not feeling well that day. Her reports over last few days she has not been generally feeling well specially after HD, most of the time resting in bed and not doing much activity at all. She felt poorly after HD , a bit confused and not herself. Wednesday they went tos hopping where she started to have chills and overall feeling poorly. called EMS and brought her to ER. On arrival to ER she was found to be febrile, had some chills and vomiting. Initial workup with chest x-ray showed increased pulmonary vascular congestion. CT brain, CT abdomen and pelvis was otherwise unremarkable. Troponin was mildly elevated. BNP was >15,000. She still makes some urine and takes Bumex 2 mg daily. Medical history is also notable for diabetes mellitus II with neuropathy/nephropathy/retinopathy, PAD s/p right BKA as well as balloon angioplasty of LLE, hypertension, chronic diastolic CHF, anemia of CKD, h/o AVNRT and PSVT. This morning lab shows her electrolyte acceptable. Blood pressure well controlled. Currently afebrile. She denies any shortness of breath, oxygen saturation decent with nasal cannula oxygen. She remained significantly above her dry weight. Overall she feels much better. Allergies Allergy/AdvReac Type Severity Reaction Status Date / Time No Known Allergies Allergy Verified 02/03/19 15:05 Home Medications Home Medications Medication Instructions Recorded Confirmed Type amiodarone 200 mg PO BID 05/14/18 02/03/19 History atorvastatin 40 mg PO QAM 05/14/18 02/03/19 History calcium acetate 667 mg PO TIDM 05/14/18 02/03/19 History furosemide 40 mg PO BID 05/14/18 02/03/19 History latanoprost 1 drp OPB HS 05/14/18 02/03/19 History levothyroxine 50 mcg PO QAM 05/14/18 02/03/19 History omega-3 acid ethyl esters 1 g PO TID 05/14/18 02/03/19 History aspirin [Aspir-81] 81 mg PO HS 07/23/18 02/03/19 History cholecalciferol (vitamin D3) 50,000 units PO WK 07/23/18 02/03/19 History metoprolol tartrate 100 mg tablet 100 mg PO BID #180 tab 12/30/18 02/03/19 Rx oxycodone-acetaminophen 5 mg-325 1 tab PO HS PRN #30 tab 01/11/19 02/03/19 Rx mg tablet pregabalin 25 mg capsule 25 mg PO BID #60 cap 01/11/19 02/03/19 Rx tramadol 50 mg tablet 50 mg PO DAILY PRN tab 01/11/19 02/03/19 History vitamin B complex and vitamin C 1 cap PO QAM 01/11/19 02/03/19 History no.20-folic acid 1 mg capsule Lantus Solostar U-100 Insulin 36 unit SUBCUT QAM 01/16/19 02/03/19 History Lantus Solostar U-100 Insulin 66 unit SUBCUT HS 01/16/19 02/03/19 History clopidogrel 75 mg PO QAM 01/16/19 02/03/19 History insulin lispro [Humalog KwikPen 10 - 20 unit SUBCUT TIDM 01/16/19 02/03/19 History Insulin] lidocaine-prilocaine 1 applic TOPICAL UD 02/03/19 02/03/19 History Patient History Medical History Colon cancer screening History of diabetic ulcer of foot (Chronic) Dialysis patient (Chronic) Diabetes mellitus type 2 with complications (Chronic) Diabetic nephropathy (Chronic) Left posterior fascicular block (LPFB) (Chronic) Sleep apnea (Chronic) does not use CPAP RBBB (right bundle branch block) (Chronic) Paroxysmal atrial fibrillation (Chronic) on plavix follows with Kip Fletcher Hyperlipidemia (Chronic) Hypothyroidism (Chronic) Anemia (Chronic 05/24/13) Paroxysmal supraventricular tachycardia (Chronic) PVD (peripheral vascular disease) (Chronic) Hypertension (Chronic) ESRD on dialysis (Chronic) dialysis--tue/thur/sat History of colon cancer (Chronic) 2008--sx, chemo Diabetes mellitus (Resolved) Diabetic peripheral neuropathy associated with type 2 diabetes mellitus (Resolved) GI (gastrointestinal bleed) (Resolved 05/24/13) Hypoxia (Resolved) Palpitations (Resolved) SIRS (systemic inflammatory response syndrome) (Resolved) AVNRT (AV alondra re-entry tachycardia) Chronic diastolic CHF (congestive heart failure) Gout Obesity Surgical History 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 of right BKA (Resolved) Arteriovenous fistula left arm History of bilateral cataract extraction History of bladder surgery per pt half of bladder removed during colectomy History of colectomy 4 ft removed History of colonoscopy History of colostomy History of colostomy reversal History of tonsillectomy and adenoidectomy History of total hysterectomy with bilateral salpingo-oophorectomy (BSO) History of wisdom tooth extraction Family History Mother Breast cancer Grandfather Myocardial infarction Father Family history of diabetes mellitus Other No family history of adverse response to anesthesia Social History Preferred Language: Luxembourgish Communication Ability: Effective Visual Impairment: No Limitations Medical Administrative Specialist Required: No Beliefs That Will Affect Care: None marital status: Current Living Situation: Spouse current occupational status: retired Feels Safe at Home: Yes Safety Concerns: Feels Safe At This Time Smoking Status: Never smoker Second Hand Exposure: No ; Hx Alcohol Use: No Hx Substance Use: No Review of Systems Review of Systems: All systems reviewed & are unremarkable except as noted in HPI & below Physical Exam Constitutional: WD/WN, vitals as above well developed, well nourished, + morbidly obese and + edematous; no acute distress Eyes: PERRL, conjunctivae normal, anicteric sclerae ENMT: external ear and nose normal, oropharynx normal Ears: no hearing impairment Neck: trachea midline Respiratory: normal respiratory effort, lungs clear to auscultation no cough Auscultation: no crackles, no rales and no wheezes Cardiovascular: RRR, no murmur, no edema Gastrointestinal (Abdomen): normal bowel sounds, soft, nontender, no hepatosplenomegaly Percussion/Palpation: abdomen nontender, no guarding and abdomen not rigid Musculoskeletal: Head/Neck/Chest: neck supple Extremities: + amputation noted (Rt BKA) Left BC AVF with thrill and bruit. Skin: no rashes, warm and dry Neurologic: moves all extremities and awake Psychiatric: A+Ox3, euthymic affect Results & Data Vital Signs (Past 12 Hours) Vital Signs Temp Pulse Pulse Resp BP Pulse Ox 02/04/19 07:39 76 02/04/19 07:24 36.5 C 78 18 120/71 97 02/04/19 04:59 36.5 C 80 18 108/64 94 02/04/19 00:00 99 H 02/03/19 23:55 37.0 C 02/03/19 23:39 37.9 C H (1) Anemia Anemia type: due to chronic kidney disease Chronic kidney disease stage: on chronic dialysis Qualified Code(s): N18.6 - End stage renal disease; D63.1 - Anemia in chronic kidney disease; Z99.2 - Dependence on renal dialysis
--- NOTE | 2019-02-04 11:26 | Pharmacy Report ---
Glycemic Control Progress Note - Date of Service February 04, 2019 - Scope Glycemic Pharmacist consulted for glycemic control to write orders per [facility] inpatient glycemic control protocol. - Objective Accuchecks BSG(last 24 hours):: 02/03/19 02/03/19 02/03/19 14:14 20:31 23:38 Glucose 255 H POC Glucose 291 H 244 H 02/04/19 02/04/19 02/04/19 03:18 05:48 07:43 Glucose 182 H POC Glucose 192 H 194 H HbA1c:: Hemoglobin A1c 8.6 % (4.5-5.6) H 02/04/19 05:48 - Recent Pertinent Medications The patient is currently receiving: * Basal insulin: Lantus 55 units x 1 * Correctional Insulin: Novolog Correction per scale ACHS Goal Range: Low 120 mg/dL - High 160 mg/dL Correction Factor: 25 mg/dL/unit * Prandial insulin: Per carb ratio of 1 unit per 9 grams CHO consumed - Outpatient Anti-Diabetic Meds Lantus 36 units in AM and 66 units in evening Novolog 10-20 units TIDM - Assessment & Plan ASSESSMENT: * See progress note from 02/04/19 for more background info, in short: * Pt receiving SQ basal bolus insulin regimen for hyperglycemia secondary to baseline DM (outpatient regimen on hold). * Patient is currently receiving an average of 65 units of insulin per day * 55 units of basal insulin * 10 units of prandial/correctional insulin * BSGs ranging 249 - 291 mg/dl over the past 24hrs * Changes needed to insulin regimen: * AM Fasting BSG = 194 mg/dl. This is above goal range for patient based on inpatient targets and co-morbidities. During the last admission, the patient tolerated around 60 units of basal insulin BUT blood sugars were still elevated. Expect that slightly more is required. Therefore will provide 20 units this morning (45% reduction). Overall this is a 25% reduction in Lantus which is appropriate for admission. * Post-prandial BSGs are unable to be evaluated secondary to lack of data. Tighten to total basal dose of 75 units which is a CF of 15 and CR of 5. Of note the patient's regimen at home is very basal heavy. * Total daily dose = ~120 units. Working to redistribute regimen towards a more balanced basal-bolus regimen. PLAN FOR INPATIENT GLYCEMIC CONTROL: * Decreasing Lantus 20 units SQ in the morning and 45 units in the PM (55 units if blood sugar over 160 mg/dL) * Continuing correction factor of 15 mg/dl/unit * Continuing carb ratio 1 unit per 5 grams CHO consumed * Continuing goal range of Low 120 mg/dL - High 160 mg/dL * Please note that the plan above was derived based on current level of insulin resistance and hospital stress. These recommendations are appropriate for inpatient admission only. Plan of care upon discharge will need to be reassessed to avoid potential outpatient hypo/hyperglycemia. Thank you.
--- NOTE | 2019-02-04 13:02 | Nephrology Consultation ---
Date of Consultation February 04, 2019 Assessment & Plan (1) ESRD on dialysis: 68-year-old female with end-stage renal disease secondary to hypertension and safe nephropathy, on hemodialysis Wednesday, , Wednesday. Admitted with generalized weakness and volume overload. On admission troponin was just mildly elevated but she did not have any symptoms suggestive of acute coronary event. Although she has diastolic dysfunction this is more likely volume overload with noncompliance with fluid restriction and dialysis than to congestive heart failure. She has chronic history of high weight gain in between dialysis treatment. She left more than 2 kg above her dry weight after last dialysis. She did have fever and chills on admission which currently resolved. Electrolyte has been acceptable. Blood pressure well controlled. Denies significant shortness of breath. Unclear etiology for F/C on admission as well as overall not doing well over last few days. Although she is volume overloaded, that does not necessarily explain all her s/s. --will schedule for dialysis as her regular dialysis schedule today, aim for 3 L UF and challenge if tolerated. If she remained significantly above her dry weight, will try 1 extra treatment Wednesday mainly for UF if still in patient. --limit fluid intake less than 1 L per day, avoid high salt food --continue on phosphate binders and renal caps daily --if febrile again may need further eval including Blood Cx Will follow Thank you for allowing me to participate in your patient's care. It was a pleasure to see Umu (2) Diabetes mellitus type 2 with complications: (3) Anemia: (4) Secondary hyperparathyroidism (of renal origin): History of Present Illness Reason for Consultation: ESRD on HD Attending Physician: Willard Nath MD History of Present Illness Umu Bennett is a 68-year-old Caucsian female with ESRD attributed to hypertensive nephropathy on HD TTS at [facility], admitted to the hospital we volume overload and generalized weakness. Nephrology consult was requested to manage end-stage renal disease and hemodialysis while in hospital. EMR records including labs and imaging reviewed in detail during patient's visit. Umu had her last dialysis treatment , had 4 hours treatment and had more than 3 L UF. She has history of excessive weight gain in between dialysis. Her estimated dry weight is 103.5 kg. At the end of dialysis her weight was 105.2 kg as she was already significantly above her dry weight. She reported it having some chills and overall not feeling well that day. Her reports over last few days she has not been generally feeling well specially after HD, most of the time resting in bed and not doing much activity at all. She felt poorly after HD , a bit confused and not herself. Wednesday they went tos hopping where she started to have chills and overall feeling poorly. called EMS and brought her to ER. On arrival to ER she was found to be febrile, had some chills and vomiting. Initial workup with chest x-ray showed increased pulmonary vascular congestion. CT brain, CT abdomen and pelvis was otherwise unremarkable. Troponin was mildly elevated. BNP was >15,000. She still makes some urine and takes Bumex 2 mg daily. Medical history is also notable for diabetes mellitus II with neuropathy/nephropathy/retinopathy, PAD s/p right BKA as well as balloon angioplasty of LLE, hypertension, chronic diastolic CHF, anemia of CKD, h/o AVNRT and PSVT. This morning lab shows her electrolyte acceptable. Blood pressure well controlled. Currently afebrile. She denies any shortness of breath, oxygen saturation decent with nasal cannula oxygen. She remained significantly above her dry weight. Overall she feels much better. Allergies Allergy/AdvReac Type Severity Reaction Status Date / Time No Known Allergies Allergy Verified 02/03/19 15:05 Home Medications Home Medications Medication Instructions Recorded Confirmed Type amiodarone 200 mg PO BID 05/14/18 02/03/19 History atorvastatin 40 mg PO QAM 05/14/18 02/03/19 History calcium acetate 667 mg PO TIDM 05/14/18 02/03/19 History furosemide 40 mg PO BID 05/14/18 02/03/19 History latanoprost 1 drp OPB HS 05/14/18 02/03/19 History levothyroxine 50 mcg PO QAM 05/14/18 02/03/19 History omega-3 acid ethyl esters 1 g PO TID 05/14/18 02/03/19 History aspirin [Aspir-81] 81 mg PO HS 07/23/18 02/03/19 History cholecalciferol (vitamin D3) 50,000 units PO WK 07/23/18 02/03/19 History metoprolol tartrate 100 mg tablet 100 mg PO BID #180 tab 12/30/18 02/03/19 Rx oxycodone-acetaminophen 5 mg-325 1 tab PO HS PRN #30 tab 01/11/19 02/03/19 Rx mg tablet pregabalin 25 mg capsule 25 mg PO BID #60 cap 01/11/19 02/03/19 Rx tramadol 50 mg tablet 50 mg PO DAILY PRN tab 01/11/19 02/03/19 History vitamin B complex and vitamin C 1 cap PO QAM 01/11/19 02/03/19 History no.20-folic acid 1 mg capsule Lantus Solostar U-100 Insulin 36 unit SUBCUT QAM 01/16/19 02/03/19 History Lantus Solostar U-100 Insulin 66 unit SUBCUT HS 01/16/19 02/03/19 History clopidogrel 75 mg PO QAM 01/16/19 02/03/19 History insulin lispro [Humalog KwikPen 10 - 20 unit SUBCUT TIDM 01/16/19 02/03/19 History Insulin] lidocaine-prilocaine 1 applic TOPICAL UD 02/03/19 02/03/19 History Patient History Medical History Colon cancer screening History of diabetic ulcer of foot (Chronic) Dialysis patient (Chronic) Diabetes mellitus type 2 with complications (Chronic) Diabetic nephropathy (Chronic) Left posterior fascicular block (LPFB) (Chronic) Sleep apnea (Chronic) does not use CPAP RBBB (right bundle branch block) (Chronic) Paroxysmal atrial fibrillation (Chronic) on plavix follows with Yosvany Bynum Hyperlipidemia (Chronic) Hypothyroidism (Chronic) Anemia (Chronic 05/24/13) Paroxysmal supraventricular tachycardia (Chronic) PVD (peripheral vascular disease) (Chronic) Hypertension (Chronic) ESRD on dialysis (Chronic) dialysis--tue/thur/sat History of colon cancer (Chronic) 2008--sx, chemo Diabetes mellitus (Resolved) Diabetic peripheral neuropathy associated with type 2 diabetes mellitus (Resolved) GI (gastrointestinal bleed) (Resolved 05/24/13) Hypoxia (Resolved) Palpitations (Resolved) SIRS (systemic inflammatory response syndrome) (Resolved) AVNRT (AV alondra re-entry tachycardia) Chronic diastolic CHF (congestive heart failure) Gout Obesity Surgical History 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 of right BKA (Resolved) Arteriovenous fistula left arm History of bilateral cataract extraction History of bladder surgery per pt half of bladder removed during colectomy History of colectomy 4 ft removed History of colonoscopy History of colostomy History of colostomy reversal History of tonsillectomy and adenoidectomy History of total hysterectomy with bilateral salpingo-oophorectomy (BSO) History of wisdom tooth extraction Family History Mother Breast cancer Grandfather Myocardial infarction Father Family history of diabetes mellitus Other No family history of adverse response to anesthesia Social History Preferred Language: Hungarian Communication Ability: Effective Visual Impairment: No Limitations Triple Drum Operator Required: No Beliefs That Will Affect Care: None marital status: Current Living Situation: Spouse current occupational status: retired Feels Safe at Home: Yes Safety Concerns: Feels Safe At This Time Smoking Status: Never smoker Second Hand Exposure: No ; Hx Alcohol Use: No Hx Substance Use: No Physical Exam Constitutional: WD/WN, vitals as above well developed, well nourished, + morbidly obese and + edematous; no acute distress Eyes: PERRL, conjunctivae normal, anicteric sclerae ENMT: external ear and nose normal, oropharynx normal Ears: no hearing impairment Neck: trachea midline Respiratory: normal respiratory effort, lungs clear to auscultation no cough Auscultation: no crackles, no rales and no wheezes Cardiovascular: RRR, no murmur, no edema Gastrointestinal (Abdomen): normal bowel sounds, soft, nontender, no hepatosplenomegaly Percussion/Palpation: abdomen nontender, no guarding and abdomen not rigid Musculoskeletal: Head/Neck/Chest: neck supple Extremities: + amputation noted (Rt BKA) Gait: normal gait Skin: no rashes, warm and dry Neurologic: moves all extremities and awake Psychiatric: A+Ox3, euthymic affect Results & Data Vital Signs (Past 12 Hours) Vital Signs Temp Pulse Pulse Resp BP Pulse Ox 02/04/19 12:00 36.9 C 83 18 120/70 93 02/04/19 07:39 76 02/04/19 07:24 36.5 C 78 18 120/71 97 02/04/19 04:59 36.5 C 80 18 108/64 94 PG Care Time/CCT Total # of Minutes Spent Total Time Spent with Patient: Total time spent is greater than 50% in coordination of care (as documented) at patient's floor/unit and/or counseling patient: (1) Anemia Anemia type: due to chronic kidney disease Chronic kidney disease stage: on chronic dialysis Qualified Code(s): N18.6 - End stage renal disease; D63.1 - Anemia in chronic kidney disease; Z99.2 - Dependence on renal dialysis
--- NOTE | 2019-02-04 13:06 | Dialysis Progress Note ---
Date of Service February 04, 2019 Assessment & Plan (1) ESRD on dialysis: 68-year-old female with end-stage renal disease secondary to hypertension and safe nephropathy, on hemodialysis Wednesday, , Wednesday. Admitted with generalized weakness and volume overload. On admission troponin was just mildly elevated but she did not have any symptoms suggestive of acute coronary event. Although she has diastolic dysfunction this is more likely volume overload with noncompliance with fluid restriction and dialysis than to congestive heart failure. She has chronic history of high weight gain in between dialysis treatment. She left more than 2 kg above her dry weight after last dialysis. She did have fever and chills on admission which currently resolved. Electrolyte has been acceptable. Blood pressure well controlled. Denies significant shortness of breath. Unclear etiology for F/C on admission as well as overall not doing well over last few days. Although she is volume overloaded, that does not necessarily explain all her s/s. --will schedule for dialysis as her regular dialysis schedule today, aim for 3 L UF and challenge if tolerated. If she remained significantly above her dry weight, will try 1 extra treatment Wednesday mainly for UF if still in patient. --limit fluid intake less than 1 L per day, avoid high salt food --continue on phosphate binders and renal caps daily --if febrile again may need further eval including Blood Cx Will follow Thank you for allowing me to participate in your patient's care. It was a pleasure to see Umu (2) Diabetes mellitus type 2 with complications: (3) Anemia: (4) Secondary hyperparathyroidism (of renal origin): Subjective Umu was seen and examined in her room. Overall feeling better, Denies SOB or CP. BP stable. Physical Exam Constitutional: WD/WN, vitals as above well developed, well nourished, + morbidly obese and + edematous; no acute distress Neck: trachea midline Respiratory: normal respiratory effort, lungs clear to auscultation no cough Auscultation: no crackles, no rales and no wheezes Cardiovascular: RRR, no murmur, no edema Neurologic: moves all extremities and awake Psychiatric: A+Ox3, euthymic affect Results & Data Vital Signs (Past 12 Hours) Vital Signs Temp Pulse Pulse Resp BP Pulse Ox 02/04/19 12:00 36.9 C 83 18 120/70 93 02/04/19 07:39 76 02/04/19 07:24 36.5 C 78 18 120/71 97 02/04/19 04:59 36.5 C 80 18 108/64 94 (1) Anemia Anemia type: due to chronic kidney disease Chronic kidney disease stage: on chronic dialysis Qualified Code(s): N18.6 - End stage renal disease; D63.1 - Anemia in chronic kidney disease; Z99.2 - Dependence on renal dialysis
--- NOTE | 2019-02-04 13:07 | Hospitalist Progress Note ---
Date of Service February 04, 2019 Assessment & Plan (1) Elevated troponin: -Troponin peaked at 0.184 and trended down. Troponin could be elevated because of end-stage renal disease and patient has not had any chest pain. -Echo pending -Strict in and out -Daily weight (2) Dialysis patient: Dialysis today. Patient has dialysis Wednesday and Wednesday. Place nephrology consult. (3) Hyperkalemia: K 5.7 on admission - resolved (4) History of amputation below knee: Stable now. Stump looks clean dry and intact (5) Sleep apnea: Patient is using CPAP at home. She was recommended to bring her own CPAP for sleep apnea. (6) Hyperlipidemia: Stable, continue atorvastatin 40 mg p.o. nightly (7) Hypothyroidism: Stable continue levothyroxine 50 MCG's p.o. nightly (8) Congestive heart failure with LV diastolic dysfunction, NYHA class 3: Her BNP is elevated above 10,000, and increased to 14,533 Hemodialysis will definitely help to reduce the volume overload Strict in and out and daily weight Continue home medicine amiodarone, aspirin, furosemide, beta-blockers (9) Diabetes mellitus type 2 with complications: Glycemic control per pharmacy. Accu-Cheks before meals and at bedtime Sliding scale insulin Sugars running high - normally takes 66 units of lantus hs, given 20 units this morning. Will add another 20 units for tonight. Heart healthy ADA diabetic diet (10) Hyponatremia: -Hyponatremia of 130 on admission most likely due to volume overload. Improving. Dialysis today (11) DVT prophylaxis: heparin subq PT/OT evals Subjective Ms. Bennett feels back to her normal self. She has no complaints today. Review of Systems Review of Systems: All systems reviewed & are unremarkable except as noted in HPI & below Physical Exam Physical Exam: General: no distress Eyes: normal inspection, PERLL Respiratory: chest non tender, clear to auscultation, normal breath sounds, no respiratory distress, no accessory muscle use Cardiac: regular rate and rhythm, no rub or gallop, no murmur, no edema, no jvd GI/: active bowel sounds, no abd pain or tenderness, soft, non distended Extremities: normal range of motion, normal strength, non tender Neuro/Psych: alert and oriented x 3, normal mood and affect Skin: normal color, dry Results & Data Vital Signs (Past 12 Hours) Vital Signs Temp Pulse Pulse Resp BP Pulse Ox 02/04/19 12:00 36.9 C 83 18 120/70 93 02/04/19 07:39 76 02/04/19 07:24 36.5 C 78 18 120/71 97 02/04/19 04:59 36.5 C 80 18 108/64 94 PG Care Time/CCT Total # of Minutes Spent Total Time Spent with Patient: Total time spent is greater than 50% in coordination of care (as documented) at patient's floor/unit and/or counseling patient: (1) Hypothyroidism Hypothyroidism type: acquired Qualified Code(s): E03.9 - Hypothyroidism, unspecified
--- NOTE | 2019-02-04 17:41 | Emergency Department Note ---
Entered by Ale Hare acting as a scribe for Umu Greenberg DO History of Present Illness General Chief complaint: Nausea Stated complaint: nausea Time Seen by Provider: 02/03/19 13:32 Source: patient and family History of Present Illness Onset (ago): day(s) (yesterday) Location: abdomen Pain Consistency: + other (persistent) Maximum Pain Intensity: 0 Quality: + other (nausea) Relieved By: + medication (Zofran) Associated symptoms: + denies other symptoms (diarrhea, dysuria, hematuria, abdominal pain), + confusion, + fever/chills (Positive chills. Negative fever.), + nausea/vomiting, + shortness of breath and + other (sore on back) The patient is a 68 year old female who presents to the Emergency Room with complaints of persistent nausea starting yesterday. The patients states that the patient has a history of ESRD and receives dialysis on Wednesday, , and Wednesday. He reports that yesterday she had a full treatment that went fine, but by late afternoon she was confused. He states that she was spaced out and did not respond to him. He reports that it was hard for him to arouse her and he had difficulty getting her into bed. He states that he thought she was just tired from dialysis, but he was concerned when she started vomiting this morning. He notes that he gave her a Zofran before coming up 1.5 hours ago. The patient states that she thinks she ate a muffin this morning. The patient complains of chills, a new sore on her back, and shortness of breath. Her notes that they do have O2at home, but they only use it once a month. The patient denies fever, diarrhea, dysuria, hematuria, and abdominal pain. Pt initially 85% on RA. Home Medications Home Medications Medication Instructions Recorded Confirmed Type amiodarone 200 mg PO BID 05/14/18 02/03/19 History atorvastatin 40 mg PO QAM 05/14/18 02/03/19 History calcium acetate 667 mg PO TIDM 05/14/18 02/03/19 History furosemide 40 mg PO BID 05/14/18 02/03/19 History latanoprost 1 drp OPB HS 05/14/18 02/03/19 History levothyroxine 50 mcg PO QAM 05/14/18 02/03/19 History omega-3 acid ethyl esters 1 g PO TID 05/14/18 02/03/19 History aspirin [Aspir-81] 81 mg PO HS 07/23/18 02/03/19 History cholecalciferol (vitamin D3) 50,000 units PO WK 07/23/18 02/03/19 History metoprolol tartrate 100 mg tablet 100 mg PO BID #180 tab 12/30/18 02/03/19 Rx oxycodone-acetaminophen 5 mg-325 1 tab PO HS PRN #30 tab 01/11/19 02/03/19 Rx mg tablet pregabalin 25 mg capsule 25 mg PO BID #60 cap 01/11/19 02/03/19 Rx tramadol 50 mg tablet 50 mg PO DAILY PRN tab 01/11/19 02/03/19 History vitamin B complex and vitamin C 1 cap PO QAM 01/11/19 02/03/19 History no.20-folic acid 1 mg capsule Lantus Solostar U-100 Insulin 36 unit SUBCUT QAM 01/16/19 02/03/19 History Lantus Solostar U-100 Insulin 66 unit SUBCUT HS 01/16/19 02/03/19 History clopidogrel 75 mg PO QAM 01/16/19 02/03/19 History insulin lispro [Humalog KwikPen 10 - 20 unit SUBCUT TIDM 01/16/19 02/03/19 History Insulin] lidocaine-prilocaine 1 applic TOPICAL UD 02/03/19 02/03/19 History Allergies Allergy/AdvReac Type Severity Reaction Status Date / Time No Known Allergies Allergy Verified 02/03/19 15:05 Past Med/Surg History Medical History Colon cancer screening History of diabetic ulcer of foot (Chronic) Dialysis patient (Chronic) Diabetes mellitus type 2 with complications (Chronic) Diabetic nephropathy (Chronic) Left posterior fascicular block (LPFB) (Chronic) Sleep apnea (Chronic) does not use CPAP RBBB (right bundle branch block) (Chronic) Paroxysmal atrial fibrillation (Chronic) on plavix follows with Kip Fletcher Hyperlipidemia (Chronic) Hypothyroidism (Chronic) Anemia (Chronic 05/24/13) Paroxysmal supraventricular tachycardia (Chronic) PVD (peripheral vascular disease) (Chronic) Hypertension (Chronic) ESRD on dialysis (Chronic) dialysis--tue/thur/sat History of colon cancer (Chronic) 2008--sx, chemo Diabetes mellitus (Resolved) Diabetic peripheral neuropathy associated with type 2 diabetes mellitus (Resolved) GI (gastrointestinal bleed) (Resolved 05/24/13) Hypoxia (Resolved) Palpitations (Resolved) SIRS (systemic inflammatory response syndrome) (Resolved) AVNRT (AV alondra re-entry tachycardia) Chronic diastolic CHF (congestive heart failure) Gout Obesity Surgical History 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 of right BKA (Resolved) Arteriovenous fistula left arm History of bilateral cataract extraction History of bladder surgery per pt half of bladder removed during colectomy History of colectomy 4 ft removed History of colonoscopy History of colostomy History of colostomy reversal History of tonsillectomy and adenoidectomy History of total hysterectomy with bilateral salpingo-oophorectomy (BSO) History of wisdom tooth extraction Family History Mother Breast cancer Grandfather Myocardial infarction Father Family history of diabetes mellitus Other No family history of adverse response to anesthesia Social History Preferred Language: Khmer Communication Ability: Effective Visual Impairment: No Limitations [employer] Manager Required: No Beliefs That Will Affect Care: None marital status: Current Living Situation: Spouse current occupational status: retired Feels Safe at Home: Yes Safety Concerns: Feels Safe At This Time Smoking Status: Never smoker Second Hand Exposure: No ; Hx Alcohol Use: No Hx Substance Use: No Review of Systems See HPI for pertinent positives & negatives. and A total of 10 systems reviewed and were otherwise negative Physical Exam Vital Signs Vital Signs - 24 hr 02/03/19 13:04 02/03/19 13:05 02/03/19 14:00 Temperature 37.5 C Temperature Source Oral Sepsis Recent Fever Within 48 Hours No Sepsis New/Unexplained Change in Mental Status No Sepsis Action Taken by Nursing No Action Required Pulse Rate 100 H Pulse Rate [Apical] 98 H 96 H Pulse Rhythm Regular Pulse Rhythm [Apical] Regular Regular Pulse Strength [Apical] Respiratory Rate 21 21 20 Respiratory Effort / Characteristics Spontaneous Respiratory Depth Respiratory Pattern Regular Regular Blood Pressure 182/90 H Blood Pressure [Right Arm] 163/78 H Blood Pressure Mean 120 Blood Pressure Mean [Right Arm] 106 Pulse Oximetry 86 L 93 92 Oxygen Delivery Method Room Air Nasal Cannula Nasal Cannula Oxygen Flow Rate 3 3 02/03/19 14:03 02/03/19 14:55 02/03/19 17:18 Temperature Temperature Source Sepsis Recent Fever Within 48 Hours Sepsis New/Unexplained Change in Mental Status Sepsis Action Taken by Nursing Pulse Rate 96 H Pulse Rate [Apical] 95 H 99 H Pulse Rhythm Regular Pulse Rhythm [Apical] Regular Regular Pulse Strength [Apical] Normal Normal Respiratory Rate 21 20 20 Respiratory Effort / Characteristics Non-Labored Non-Labored Respiratory Depth Normal Normal Respiratory Pattern Regular Regular Blood Pressure Blood Pressure [Right Arm] 174/86 H 140/69 Blood Pressure Mean Blood Pressure Mean [Right Arm] 115 92 Pulse Oximetry 94 93 94 Oxygen Delivery Method Nasal Cannula Nasal Cannula Oxygen Flow Rate 3 4 GENERAL: alert, well appearing, well nourished, no distress, non-toxic, obese, hirsute EYE EXAM: normal conjunctiva, PERRL and EOM's grossly intact OROPHARYNX: no exudate, no erythema, lips, buccal mucosa, and tongue normal and mucous membranes are moist NECK: supple, no nuchal rigidity, no adenopathy, non-tender LUNGS: Diminished breath sounds. Fine bibasilar rales. Normal chest wall mechanics HEART: no murmurs, S1 normal and S2 normal ABDOMEN: abdomen soft, non-tender, normo-active bowel sounds, no masses, no rebound or guarding. BACK: Back is symmetrical on inspection and there is no deformity, no midline tenderness, no CVA tenderness. SKIN: no rashes and no bruising UPPER EXTREMITIES: upper extremities are grossly normal. Fistula in left upper extremity. LOWER EXTREMITIES: No pitting edema. Right BKA. NEURO EXAM: Normal sensorium, cranial nerves II-XII grossly intact, normal speech, no gross weakness of arms, no gross weakness of legs. Course 1334: Past medical records reviewed. The patient was evaluated in room A9B. A complete history and physical exam was performed initially by the resident, Cyndi Rojas. 1540: I reevaluated the patient and examined her at this time. I discussed her test results and the treatment plan with her. She verbally agrees and understands. 1542: The resident, Cyndi Rojas, discussed the patient's case with Dr. Heather DECKER Hospitalist. She will evaluate the patient for further management. Consultations Consultation #1: The resident, Cyndi Rojas, discussed the patient's case with Dr. Heather DECKER Hospitalist. She will evaluate the patient for further management. Time: 15:42 Administered Medications Acetaminophen (Tylenol) 650 mg PO Q4H PRN PRN Reason: Pain or Fever Stop: 03/05/19 17:40 Last Admin: 02/03/19 22:14 Dose: 650 mg Documented by: [id number] Amiodarone HCl (Cordarone) 200 mg PO BID [facility] Stop: 03/05/19 20:59 Last Admin: 02/04/19 10:18 Dose: 200 mg Documented by: [id number] Admin: 02/03/19 20:51 Dose: 200 mg Documented by: [id number] Aspirin (Ecotrin Ectab) 81 mg PO HS [facility] Stop: 03/05/19 20:59 Last Admin: 02/03/19 20:51 Dose: 81 mg Documented by: [id number] Atorvastatin Calcium (Lipitor) 40 mg PO QAM [facility] Stop: 03/05/19 18:57 Last Admin: 02/04/19 07:46 Dose: 40 mg Documented by: [id number] Admin: 02/03/19 20:52 Dose: 40 mg Documented by: [id number] Calcium Acetate (Phoslo) 667 mg PO TIDM [facility] Stop: 03/06/19 07:59 Last Admin: 02/04/19 12:15 Dose: 667 mg Documented by: [id number] Admin: 02/04/19 07:48 Dose: 667 mg Documented by: [id number] Clopidogrel Bisulfate (Plavix) 75 mg PO QAM [facility] Stop: 03/05/19 18:57 Last Admin: 02/04/19 07:46 Dose: 75 mg Documented by: [id number] Admin: 02/03/19 20:52 Dose: 75 mg Documented by: [id number] Fish Oil ([place]-3 (Purified Fish Oil)) 1 gm PO TID [facility] Stop: 03/05/19 20:59 Last Admin: 02/04/19 07:47 Dose: 1 gm Documented by: [id number] Admin: 02/03/19 20:51 Dose: 1 gm Documented by: [id number] Heparin Sodium (Porcine) (Heparin Sodium (Porcine)) 5,000 units SQ Q8 [facility] Stop: 03/05/19 21:59 Last Admin: 02/04/19 05:44 Dose: 5,000 units Documented by: [id number] Cosigned by: [id number] Admin: 02/03/19 20:57 Dose: 5,000 units Documented by: [id number] Cosigned by: [id number] Furosemide 20 mg/ Syringe 2 mls @ 4 mls/min IV BID [facility] Stop: 03/06/19 08:59 Last Admin: 02/04/19 10:18 Dose: 4 mls/min Documented by: [id number] Insulin Aspart (Novolog Flexpen) 0 units SC ACHS [facility] Stop: 03/05/19 21:29 Last Admin: 02/04/19 12:16 Dose: 12 units Documented by: [id number] Cosigned by: [id number] Admin: 02/04/19 07:54 Dose: 11 units Documented by: [id number] Cosigned by: [id number] Admin: 02/03/19 21:43 Dose: 6 units Documented by: [id number] Cosigned by: [id number] Insulin Glargine (Lantus Solostar Pen) 20 units SC QAM [facility] Stop: 03/06/19 08:59 Last Admin: 02/04/19 07:55 Dose: 20 units Documented by: [id number] Cosigned by: [id number] Latanoprost (Xalatan Oph) 1 drops OPB HS [facility] Stop: 03/05/19 20:59 Last Admin: 02/03/19 20:56 Dose: 1 drops Documented by: [id number] Levothyroxine Sodium (Synthroid) 50 mcg PO DAILYBB [facility] Stop: 03/05/19 18:57 Last Admin: 02/04/19 06:00 Dose: 50 mcg Documented by: [id number] Admin: 02/03/19 20:56 Dose: 50 mcg Documented by: [id number] Metoprolol Tartrate (Lopressor) 100 mg PO BID [facility] Stop: 03/05/19 20:59 Last Admin: 02/04/19 10:18 Dose: 100 mg Documented by: [id number] Admin: 02/03/19 20:55 Dose: 100 mg Documented by: [id number] Miscellaneous (Order Awaiting Action) 1 ea N/A QS [facility] Stop: 03/06/19 00:00 Last Admin: 02/04/19 15:24 Dose: Not Given Documented by: [id number] Admin: 02/04/19 07:29 Dose: Not Given Documented by: [id number] Admin: 02/03/19 22:42 Dose: Not Given Documented by: [id number] Oxycodone/Acetaminophen (Percocet 5mg/325mg) 1 tab PO HS PRN PRN Reason: pain Stop: 02/17/19 18:57 Last Admin: 02/03/19 22:16 Dose: 1 tab Documented by: [id number] Pregabalin (Lyrica) 25 mg PO BID [facility] Stop: 03/05/19 20:59 Last Admin: 02/04/19 07:52 Dose: 25 mg Documented by: [id number] Admin: 02/03/19 21:00 Dose: 25 mg Documented by: [id number] Vitamin B Complex/Folic Acid (Nephrocaps) 1 cap PO QAM [facility] Stop: 03/05/19 18:57 Last Admin: 02/04/19 07:47 Dose: 1 cap Documented by: [id number] Admin: 02/03/19 20:52 Dose: 1 cap Documented by: [id number] Discontinued Medications Furosemide (Lasix) 40 mg PO BID17 [facility] Stop: 03/05/19 20:59 Last Admin: 02/03/19 20:55 Dose: 40 mg Documented by: [id number] Insulin Aspart (Novolog Flexpen) 0 units SC 0000,0400 [facility] Stop: 02/04/19 04:01 Last Admin: 02/04/19 03:21 Dose: 2 units Documented by: [id number] Cosigned by: [id number] Admin: 02/03/19 23:50 Dose: 4 units Documented by: [id number] Cosigned by: [id number] Insulin Glargine (Lantus Solostar Pen) 55 units SQ HS ONE Stop: 02/03/19 21:01 Last Admin: 02/03/19 21:44 Dose: 55 units Documented by: [id number] Cosigned by: [id number] Lidocaine/Prilocaine (Emla 2.5%) 1 ea EXT DAILY [facility] Stop: 03/06/19 08:59 Last Admin: 02/04/19 10:12 Dose: Not Given Documented by: [id number] Perflutren Lipid Microsphere (Definity) 2 ml IV ONCE ONE Stop: 02/04/19 10:04 Last Admin: 02/04/19 10:04 Dose: 2 ml Documented by: [id number] Medical Decision Making Differential Diagnosis Differential diagnoses includes but is not limited to pneumonia, bronchitis, COPD/Asthma exacerbation, pneumothorax, pulmonary embolism, congestive heart failure, acute coronary syndrome, gastroenteritis, food borne illness, infections, appendicitis, diverticulitis, inflammatory bowel disease, obstruction, GI bleed, biliary pathology, as well as others were entertained. Medical Records Attestation: I reviewed the patient's medical records. Home Medications Current Medication List: was personally reviewed by me Laboratory Data Attestation: I reviewed the patient's lab results. Result diagrams: 02/04/19 05:48 02/04/19 05:48 Lab Results 02/03/19 02/03/19 02/03/19 Range/Units 14:14 14:14 14:14 WBC 11.06 H (4.8-10.8) K/uL RBC 3.52 L (4.2-5.4) M/uL Hgb 11.4 L (12.0-16.0) g/dL Hct 33.7 L (37-47) % MCV 95.7 (80-100) fL MCH 32.4 (25-34) pg MCHC 33.8 (32-36) g/dL RDW Std Deviation 55.7 H (36.4-46.3) fL RDW Coeff of Veronica 16.0 H (11.5-14.5) % Plt Count 146 (130-400) K/uL MPV 9.4 (7.4-10.4) fL Immature Gran % (Auto) 0.4 % Neut % (Auto) 84.9 % Lymph % (Auto) 8.6 % Placer % (Auto) 5.4 % Eos % (Auto) 0.5 % Baso % (Auto) 0.2 % Immature Gran # (Auto) 0.04 H (0.00-0.02) K/uL Neut # (Auto) 9.40 H (1.4-6.5) K/uL Lymph # (Auto) 0.95 L (1.2-3.4) K/uL Placer # (Auto) 0.60 H (0.11-0.59) K/uL Eos # (Auto) 0.05 (0-0.5) K/uL Baso # (Auto) 0.02 (0-0.2) K/uL PT (9.0-12.0) Seconds INR (0.9-1.1) Sodium 130 L (136-145) mmol/L Potassium 5.7 H (3.5-5.1) mmol/L Chloride 91 L (98-107) mmol/L Carbon Dioxide 31 (21-32) mmol/L Anion Gap 8.0 (3-11) BUN 21 H (7-18) mg/dl Creatinine 5.41 H* (0.6-1.2) mg/dl Est Cr Clr Drug Dosing 12.2 ml/min Est GFR ( Amer) 8.6 Est GFR (Non-Af Amer) 7.5 BUN/Creatinine Ratio 3.8 L (10-20) Glucose 255 H (70-99) mg/dl Lactate 2.0 (0.4-2.0) mmol/L Calcium 9.4 (8.5-10.1) mg/dl Total Bilirubin 0.5 (0.2-1) mg/dl AST 12 L (15-37) U/L ALT 19 (12-78) U/L Alkaline Phosphatase 88 (45-117) U/L Troponin I (0-0.045) ng/ml NT-Pro-B Natriuret Pep (0-900) pg/ml Total Protein 7.7 (6.4-8.2) gm/dl Albumin 3.2 L (3.4-5.0) gm/dl Globulin 4.5 H (2.5-4.0) gm/dl Albumin/Globulin Ratio 0.7 L (0.9-2) Lipase 84 (73-393) U/L 02/03/19 02/03/19 02/03/19 Range/Units 14:14 14:14 14:26 WBC (4.8-10.8) K/uL RBC (4.2-5.4) M/uL Hgb (12.0-16.0) g/dL Hct (37-47) % MCV (80-100) fL MCH (25-34) pg MCHC (32-36) g/dL RDW Std Deviation (36.4-46.3) fL RDW Coeff of Veronica (11.5-14.5) % Plt Count (130-400) K/uL MPV (7.4-10.4) fL Immature Gran % (Auto) % Neut % (Auto) % Lymph % (Auto) % Placer % (Auto) % Eos % (Auto) % Baso % (Auto) % Immature Gran # (Auto) (0.00-0.02) K/uL Neut # (Auto) (1.4-6.5) K/uL Lymph # (Auto) (1.2-3.4) K/uL Placer # (Auto) (0.11-0.59) K/uL Eos # (Auto) (0-0.5) K/uL Baso # (Auto) (0-0.2) K/uL PT 11.9 (9.0-12.0) Seconds INR 1.2 H (0.9-1.1) Sodium (136-145) mmol/L Potassium (3.5-5.1) mmol/L Chloride (98-107) mmol/L Carbon Dioxide (21-32) mmol/L Anion Gap (3-11) BUN (7-18) mg/dl Creatinine (0.6-1.2) mg/dl Est Cr Clr Drug Dosing ml/min Est GFR ( Amer) Est GFR (Non-Af Amer) BUN/Creatinine Ratio (10-20) Glucose (70-99) mg/dl Lactate (0.4-2.0) mmol/L Calcium (8.5-10.1) mg/dl Total Bilirubin (0.2-1) mg/dl AST (15-37) U/L ALT (12-78) U/L Alkaline Phosphatase (45-117) U/L Troponin I 0.184 H* (0-0.045) ng/ml NT-Pro-B Natriuret Pep 36223 H (0-900) pg/ml Total Protein (6.4-8.2) gm/dl Albumin (3.4-5.0) gm/dl Globulin (2.5-4.0) gm/dl Albumin/Globulin Ratio (0.9-2) Lipase (73-393) U/L Imaging Data Radiologist's Impression: Radiology results as stated below per my review and the radiologist's interpretation: XR chest 1V portable HISTORY: dyspnea COMPARISON: Chest 05/14/2018. FINDINGS: The heart remains mildly enlarged. There are low lung volumes. Mild central pulmonary vascular congestion without overt edema. No pneumothorax. No pleural effusions. A few bibasilar linear densities. IMPRESSION: 1. Mild cardiomegaly with mild pulmonary vascular congestion. 2. Bibasilar linear densities are nonspecific but may represent atelectasis given the low lung volumes. Electronically signed by: Leodan Mccray M.D. 02/03/2019 2:[address] head/brain wo con CLINICAL HISTORY: 68 years-old Female with acute confusion. Acutely altered mental status TECHNIQUE: Multiple axial CT images of the head were obtained without contrast. A dose lowering technique was utilized adhering to the principles of ALARA. CT DOSE: 3050.19 mGy.cm COMPARISON: CT maxillofacial 10/07/2016 FINDINGS: No acute intracranial hemorrhage, midline shift, intracranial mass, hydrocephalus, territorial ischemia or abnormal extra-axial collection. Mild age-related involutional changes. Mild degree of patchy white matter hypodensities suggest chronic microvascular ischemic disease. Cerebral vascular calcifications are noted. The calvarium is intact. Mild mucosal thickening of the maxillary, ethmoid and sphenoid sinuses. Moderate right mastoid effusion. Left mastoid air cells are cl ear. Soft tissues are unremarkable. Prior bilateral cataract repair. Soft tissue vascular calcifications. IMPRESSION: 1. No acute intracranial abnormality. 2. Moderate right mastoid effusion with mild paranasal sinus disease. The above report was generated using voice recognition software. It may contain grammatical, syntax or spelling errors. Electronically signed by: Anastacio Dyer M.D. 02/03/2019 2:[address] OF THE ABDOMEN AND PELVIS WITHOUT CONTRAST CLINICAL HISTORY: Vomiting. COMPARISON STUDY: PET/CT January 15, 2014. Abdominal series May 24, 2016. TECHNIQUE: Axial images of the abdomen and pelvis were obtained without IV contrast. Images were reviewed in the axial, sagittal, and coronal planes. Automated exposure control was utilized for the study. A dose lowering technique was utilized adhering to the principles of ALARA. FINDINGS: The heart is moderately enlarged. Collaterals within the left breast are incidentally noted. Several hypodense hepatic lesions are too small characterize but are probably benign. Unenhanced images of the spleen, adrenal glands and pancreas are unremarkable. Stones versus sludge within the gallbladder noted. There is no pericholecystic infiltration. There is moderate to marked bilateral renal cortical thinning. No hydronephrosis. This extensive vascular calcification. A ventral hernia contains a portion of the transverse colon. Additional fat-containing ventral hernias are noted. A lower abdominal ventral hernia contains several small bowel loops. No pneumatosis, free air or portal venous gas is present. The appendix is likely surgically absent. Postoperative findings within the right colon are noted. IMPRESSION: 1. No acute process within the abdomen or pelvis on unenhanced exam. 2. Several bowel containing ventral hernias without obstruction. 3. Stones versus sludge within the gallbladder. Mild gallbladder distention. No pericholecystic infiltration. No convincing CT evidence for acute cholecystitis although a right upper quadrant ultrasound could be obtained if right upper quadrant pain. 4. Moderate to marked bilateral renal cortical thinning. No hydronephrosis. Electronically signed by: Devan Galeano M.D. 02/03/2019 3:10 PM ECG Data Attestation: I personally reviewed and interpreted this ECG as follows: Indication: nausea Rate (beats per minute): 102 Rhythm: sinus tachycardia Findings: + other (RAD), + RBBB and + ST depression (V4, V5, lead 2, aVF); no ST elevation Blood Pressure Blood Pressure Findings: Normal blood pressure Blood Pressure Disposition: did not require urgent referral MDM Narrative Patient presenting here today with concerns due to increased confusion according to the as well as shortness of breath and patient found to be initially hypoxic on room air. Patient does not wear oxygen normally, the states she may use it once a month. Patient does do dialysis and has not missed any treatments recently. Patient's chest x-ray shows mild pulmonary edema, likely chronic in nature, however given the hypoxia, concern for evolving volume overload or infiltrate. No other symptoms to suggest evolving pneumonia. Patient with abnormal creatinine and mildly abnormal electrolytes likely secondary to her chronic kidney disease. Patient's troponin found to be elevated also, no prior history of chronically elevated troponin secondary to her chronic kidney disease. It is unclear if this is triggering factor in her shortness of breath. No chest pain. Patient's vital signs in the ED improved and patient's oxygen improved with nasal cannula. I do not suspect bacteremia/sepsis. Patient here disoriented to date and time, however otherwise answers all questions of orientation appropriately. I do not suspect meningitis/encephalitis. Patient with a nonfocal neuro exam, I do not suspect CVA. Patient otherwise in no acute distress. Given concern for evolving pathology and patient is complicated past medical history with recent hypoxia a nd confusion, case was discussed with hospitalist by the resident. I feel PE is less likely. No significant pleural effusion. No recent trauma. H&H stable. Impression & Plan Hypoxia, Dialysis patient, Altered mental status, Nausea & vomiting, Elevated troponin, Chronic kidney disease Discharge Plan Visit Data *Final* Discharge Date/Time: 02/03/19 18:23 Chief Complaint: Nausea Stated Complaint: nausea ED Provider: Umu Greenberg ED Midlevel Provider: Cyndi Rojas Discharge Problem: Hypoxia, Dialysis patient, Altered mental status, Nausea & vomiting, Elevated troponin, Chronic kidney disease Patient Disposition: Admitted As Inpatient Discharge Instructions Interventions: ED Discharge Assessment Last Done: 02/03/19 18:23 Discharge Problem: Altered mental status Qualifiers: Altered mental status type: unspecified Qualified Code(s): R41.82 - Altered mental status, unspecified Nausea & vomiting Qualifiers: Vomiting type: unspecified Vomiting Intractability: unspecified Qualified Code(s): R11.2 - Nausea with vomiting, unspecified Chronic kidney disease Qualifiers: Chronic kidney disease stage: unspecified stage Qualified Code(s): N18.9 - Chronic kidney disease, unspecified The scribe's documentation has been prepared under my direction and personally reviewed by me in its entirety. I confirm that the note above accurately reflects all work, treatment, procedures, and medical decision making performed by me.
--- NOTE | 2019-02-04 19:52 | CT Scan Report ---
CT SCAN OF THE BRAIN WITHOUT IV CONTRAST CLINICAL HISTORY: Change in mental status. COMPARISON STUDY: CT of the brain dated 02/03/2019. TECHNIQUE: Unenhanced axial CT scan of the brain is performed from the vertex to the skull base. A do se lowering technique was utilized adhering to the principles of ALARA. CT DOSE: 614.27 mGy.cm FINDINGS: Brain parenchyma: There is age-related involutional change noting minimal microangiopathic disease. There is no hemorrhage, mass effect, or evidence of acute territorial ischemia by CT criteria. Orr-w shimon matter differentiation is preserved. No extra-axial fluid collection is seen. Ventricles, sulci, cisterns: Prominent secondary to involutional change. Intracranial vasculature: There is atherosclerotic calcification of the cavernous carotid and vertebr al arteries. Calvarium: Unremarkable. Sinuses and mastoids: The visualized paranasal sinuses are clear. There is a right mastoid effusion. The left mastoid air cells are well pneumatized. Orbits: The bony orbits are grossly intact. There are bilateral ocular lens implants. IMPRESSION: 1. There is no hemorrhage, mass effect, or evidence of acute territorial ischemia by CT criteria. 2. Right mastoid effusion. Electronically signed by: Cristi Sanders M.D. 02/04/2019 7:49 PM
[2019-02-04] MEDS: ONDANSETRON INJ 2 MG/ML 2 ML VIAL IV PRN (20:27)
[2019-02-04] MEDS: ASPIRIN 81 MG ECTAB PO SCH (20:34)
[2019-02-04] MEDS: LATANOPROST 0.005% OP SOLN 2.5 ML BTL OPB SCH (20:38)
[2019-02-04 20:43] LABS: HCO3 ABG 28 mmol/L (19-24); Oxygen Saturation ABG 92.2 % (90-95); PCO2 ABG 40 mmHg (35-46); PO2 ABG 66 mm/Hg (80-95); pH ABG 7.46 (7.35-7.45)
[2019-02-04 20:45] LABS: Allen Test Pos (Pos)
[2019-02-04 20:49] LABS: BUN Creatinine Ratio 4.2 (10-20); Calcium 8.7 mg/dl (8.5-10.1); Creatinine Clr Calc Pharmacy 12.9 ml/min; Est GFR (African American) 9.5; Est GFR (Non-African American) 8.2; Potassium 5.1 mmol/L (3.5-5.1)
[2019-02-04] MEDS ORDERED: INSULIN GLARGINE SOLOSTAR 100 UNITS/ML 3 ML PEN SC SCH (21:00)
[2019-02-04] MEDS: SODIUM CHLORIDE 0.9% 500 ML IV SCH (21:27)
[2019-02-04] MEDS: OXYCODONE/ACETAMINOPHEN 5mg/325mg TAB PO PRN (22:29)
[2019-02-05] MEDS: HEPARIN SOD 5,000 UNIT/0.5 ML VIAL SQ SCH ×3 (05:48→21:00)
[2019-02-05] MEDS: SODIUM CHLORIDE 0.9% 500 ML IV SCH (05:48)
[2019-02-05] MEDS: LEVOTHYROXINE SODIUM 50 MCG TABLET PO SCH (05:49)
[2019-02-05 07:14] LABS: Basophils # (auto) 0.03 K/uL (0-0.2); Basophils % (auto) 0.2 %; Eosinophils # (auto) 0.12 K/uL (0-0.5); Hematocrit (blood only) 31.7 % (37-47); Hemoglobin 10.6 g/dL (12.0-16.0); Immature Granulocytes # (auto) 0.02 K/uL (0.00-0.02); Immature Granulocytes % (auto) 0.2 %; Lymphocytes # (auto) 1.93 K/uL (1.2-3.4); Lymphocytes % (auto) 15.7 %; Mean Corpuscular Hgb Conc 33.4 g/dL (32-36); Mean Corpuscular Volume 96.9 fL (80-100); Mean Platelet Volume 9.4 fL (7.4-10.4); Monocytes % (auto) 11.4 %; Neutrophils # (auto) 8.83 K/uL (1.4-6.5); Neutrophils % (auto) 71.5 %; Platelet Count 152 K/uL (130-400); RDW Coefficient of Variation 16.2 % (11.5-14.5); RDW Standard Deviation 56.9 fL (36.4-46.3); Red Blood Count 3.27 M/uL (4.2-5.4); White Blood Count 12.33 K/uL (4.8-10.8)
[2019-02-05 08:00] LABS: Albumin Globulin Ratio 0.6 (0.9-2); Albumin Level 2.7 gm/dl (3.4-5.0); BUN Creatinine Ratio 4.5 (10-20); Bilirubin,Total 0.5 mg/dl (0.2-1); Calcium 8.8 mg/dl (8.5-10.1); Creatinine Clr Calc Pharmacy 10.9 ml/min; Est GFR (African American) 7.9; Est GFR (Non-African American) 6.8; Globulin 4.5 gm/dl (2.5-4.0); Potassium 4.6 mmol/L (3.5-5.1); Total Protein 7.2 gm/dl (6.4-8.2)
[2019-02-05] MEDS: CLOPIDOGREL BISULFATE 75 MG TAB PO SCH (08:02)
[2019-02-05] MEDS: CALCIUM ACETATE 667 MG CAP PO SCH ×3 (08:02→18:02)
[2019-02-05] MEDS: ATORVASTATIN 40 MG TAB PO SCH (08:02)
[2019-02-05] MEDS: OMEGA-3 (PURIFIED FISH OIL) 1 GM CAP PO SCH ×3 (08:03→21:03)
[2019-02-05] MEDS: AMIODARONE 200 MG TAB PO SCH ×2 (08:03→21:01)
[2019-02-05] MEDS: METOPROLOL TARTRATE 100 MG TAB PO SCH ×2 (08:03→21:00)
[2019-02-05] MEDS: NEPHROCAPS PO SCH (08:04)
--- NOTE | 2019-02-05 08:08 | Nephrology Progress Note ---
Date of Service February 05, 2019 Assessment & Plan (1) ESRD on dialysis: 68-year-old female with end-stage renal disease secondary to hypertension and safe nephropathy, on hemodialysis Wednesday, , Wednesday. Admitted with generalized weakness and volume overload. On admission troponin was just mildly elevated but she did not have any symptoms suggestive of acute coronary event. Although she has diastolic dysfunction this is more likely volume overload with noncompliance with fluid restriction and dialysis than to congestive heart failure. She has chronic history of high weight gain in between dialysis treatment. She left more than 2 kg above her dry weight after last dialysis. She did have fever and chills on admission which currently resolved. Electrolyte has been acceptable. Blood pressure well controlled. Denies significant shortness of breath. Unclear etiology for F/C on admission as well as overall not doing well over last few days. Although she is volume overloaded, that does not necessarily explain all her s/s. Tolerated HD well yesterday, had 3 L UF. --discussed in detail about the importance of limiting fluid intake less than 1 L per day, avoid high salt food to minimize UF --increase lasix to 40 mg BID , may need 80 BID. --Will do extra Rx tomorrow mainly for UF to reach EDW so that she will not need too high UF on Wednesday. --continue on phosphate binders and renal caps daily --if febrile again may need further eval including Blood Cx Will follow (2) Diabetes mellitus type 2 with complications: (3) Anemia: (4) Secondary hyperparathyroidism (of renal origin): Sammi Sanz was seen and examined in her room. Overall feeling well, Denies SOB or CP. BP stable. She had another episode of AMS after HD yesterday, she was confused and was not able to communicate and does not remember what happened. BP was low toward the end of Rx , had 3 L UF but completed above her EDW. Review of Systems Review of Systems: All systems reviewed & are unremarkable except as noted in HPI & below Physical Exam Constitutional: WD/WN, vitals as above well developed, well nourished, + morbidly obese and + edematous; no acute distress Neck: trachea midline Respiratory: normal respiratory effort, lungs clear to auscultation no cough Auscultation: no crackles, no rales and no wheezes Cardiovascular: RRR, no murmur, no edema Neurologic: moves all extremities and awake Psychiatric: A+Ox3, euthymic affect Results & Data Vital Signs (Past 12 Hours) Vital Signs Temp Pulse Pulse Pulse Resp BP Pulse Ox 02/05/19 07:18 36.6 C 78 18 119/73 99 02/05/19 03:36 36.5 C 81 18 108/64 98 02/05/19 00:00 95 H 02/04/19 23:05 37 C 93 H 18 150/69 H 94 PG Care Time/CCT Total # of Minutes Spent Total Time Spent with Patient: Total time spent is greater than 50% in coordination of care (as documented) at patient's floor/unit and/or counseling patient: (1) Anemia Anemia type: due to chronic kidney disease Chronic kidney disease stage: on chronic dialysis Qualified Code(s): N18.6 - End stage renal disease; D63.1 - Anemia in chronic kidney disease; Z99.2 - Dependence on renal dialysis
[2019-02-05] MEDS: INSULIN GLARGINE SOLOSTAR 100 UNITS/ML 3 ML PEN SC SCH ×2 (08:11→20:58)
[2019-02-05] MEDS: INSULIN ASPART 100 UNITS/ML 3 ML PEN SC SCH ×4 (08:12→20:59)
[2019-02-05] MEDS: PREGABALIN 25 MG CAP PO SCH ×2 (08:31→21:15)
--- NOTE | 2019-02-05 11:51 | Pharmacy Report ---
Pharmacy Glycemic Short Note 2 - Date of Service February 05, 2019 - Glycemic Short BSG Results (Last 24 hours): 02/04/19 02/04/19 02/04/19 11:19 18:22 19:59 Glucose 223 H POC Glucose 224 H 180 H 02/04/19 02/05/19 02/05/19 20:30 06:30 07:42 Glucose 147 H POC Glucose 221 H 162 H 02/05/19 11:27 Glucose POC Glucose 204 H OUTPATIENT ANTIDIABETIC REGIMEN: * Lantus 36 units in AM, 66 units HS * Insulin lispro 10-20 TIDm ASSESSMENT: * Patient received 107 units of insulin yesterday. * Blood sugars above goal and rising with meals, will increase PM Lantus slightly and tighten CF and CR. PLAN FOR INPATIENT GLYCEMIC CONTROL: * Basal insulin * Lantus 20 units SQ QAM * 50-60 units HS * 50 units for BSG < 160mg/ld * 60 units for BSG 160mg/dl or greater * Bolus insulin * NovoLog per scale ACHS * Goal Range: Low 120 mg/dL - High 160 mg/dL * tighten: Correction Factor: 12 mg/dL/unit * tighten: Nutritional / Prandial insulin per carb ratio of 1 unit per 4 grams CHO consumed
--- NOTE | 2019-02-05 14:53 | Hospitalist Progress Note ---
Date of Service February 05, 2019 Assessment & Plan (1) Elevated troponin: -Troponin peaked at 0.184 and trended down. Troponin could be elevated because of end-stage renal disease and patient has not had any chest pain. -Echo was poor quality and unable to rule out wall motion abnormalities -Strict in and out -Daily weight (2) Dialysis patient: Dialysis 02/04. Patient has dialysis Wednesday and Wednesday. Did not tolerate well, altered mental status when returned to her room, unable to verbalize beyond "yes" and "no" and unable to follow commands. Plan is for dialysis again tomorrow, will discuss with nephrology if any modifications can be made so that patient does not continue to experience these extreme changes following dialysis. nephrology consult. (3) Hyperkalemia: K 5.7 on admission - resolved (4) History of amputation below knee: Stable now. Stump looks clean dry and intact (5) Sleep apnea: Patient is using CPAP at home. She was recommended to bring her own CPAP for sleep apnea. (6) Hyperlipidemia: Stable, continue atorvastatin 40 mg p.o. nightly (7) Hypothyroidism: Stable continue levothyroxine 50 MCG's p.o. nightly (8) Congestive heart failure with LV diastolic dysfunction, NYHA class 3: Her BNP is elevated Strict in and out and daily weight Continue home medicine amiodarone, aspirin,increase furosemide to 40 mg bid per nephrology rec, beta-blockers (9) Diabetes mellitus type 2 with complications: Glycemic control per pharmacy. Accu-Cheks before meals and at bedtime Sliding scale insulin Heart healthy ADA diabetic diet (10) Hyponatremia: -Hyponatremia of 130 on admission most likely due to volume overload. Improving. (11) DVT prophylaxis: heparin subq PT/OT evals - has concerns for being able to continue transferring his if she continues with increased weakness. Appreciate CM input Subjective Ms. Bennett is back to her usual self today. No complaints. Alert and oriented. is bedside. Review of Systems Review of Systems: All systems reviewed & are unremarkable except as noted in HPI & below Physical Exam Physical Exam: General: no distress Eyes: normal inspection, PERLL Respiratory: chest non tender, clear to auscultation, normal breath sounds, no respiratory distress, no accessory muscle use Cardiac: regular rate and rhythm, no rub or gallop, no murmur, no edema, no jvd GI/: active bowel sounds, no abd pain or tenderness, soft, non distended Extremities: normal range of motion, normal strength, non tender Neuro/Psych: alert and oriented x 3, normal mood and affect Skin: normal color, dry Results & Data Vital Signs (Past 12 Hours) Vital Signs Temp Pulse Pulse Resp BP Pulse Ox 02/05/19 14:46 36.8 C 89 16 156/74 H 90 02/05/19 12:53 36.5 C 86 20 145/78 H 94 02/05/19 08:30 81 02/05/19 07:18 36.6 C 78 18 119/73 99 02/05/19 03:36 36.5 C 81 18 108/64 98 PG Care Time/CCT Total # of Minutes Spent Total Time Spent with Patient: Total time spent is greater than 50% in coordination of care (as documented) at patient's floor/unit and/or counseling patient: (1) Hypothyroidism Hypothyroidism type: acquired Qualified Code(s): E03.9 - Hypothyroidism, unspecified
[2019-02-05] MEDS ORDERED: VANCOMYCIN CONSULT ACTIVE PRN (17:43)
[2019-02-05] MEDS ORDERED: PIPERACILL/TAZOBAC CONSULT ACTIVE PRN (17:43)
[2019-02-05] MEDS ORDERED: VANCOMYCIN HCL 1,000 MG in SODIUM CHLORIDE 0.9% 250 ML IV SCH (17:45)
[2019-02-05] MEDS ORDERED: ACETAMINOPHEN 1,000 MG/100 ML VIAL IV PRN (17:46)
[2019-02-05] MEDS ORDERED: PIPERACILLIN/TAZOBACTAM 4.5 GM/120 ML BAG IV STA (17:55)
[2019-02-05] MEDS ORDERED: VANCOMYCIN HCL 2,250 MG in SODIUM CHLORIDE 0.9% 500 ML IV STA (18:00)
[2019-02-05] MEDS: FUROSEMIDE 40 MG TAB PO SCH (18:02)
--- NOTE | 2019-02-05 18:57 | XRay Report ---
XR chest 1V portable CLINICAL HISTORY: 68 years-old Female presenting with fever. TECHNIQUE: Portable upright AP view of the chest was obtained. COMPARISON: 02/03/2019. FINDINGS: Atherosclerosis of the aortic arch. Cardiac silhouette enlarged. Pulmonary vascular prominence. Bronc hial wall cuffing. Interlobular septal thickening may be present. Mildly low lung volumes. Slight asy mmetric density of the left lung in comparison to the right, which is more lucent. No large effusion though a trace effusions may be present. No pneumothorax. Degenerative changes of the thoracic spine. Upper abdomen normal. IMPRESSION: 1. Cardiomegaly with volume overload and congestive change. No rosenda pulmonary edema. 2. Slight asymmetry and density of the left lung could imply an underlying infiltrate. Consider PA a nd lateral views for better assessment. Electronically signed by: Peyman Obregon M.D. 02/05/2019 6:55 PM
[2019-02-05] MEDS: ASPIRIN 81 MG ECTAB PO SCH (21:01)
[2019-02-05] MEDS: LATANOPROST 0.005% OP SOLN 2.5 ML BTL OPB SCH (21:03)
[2019-02-06] MEDS ORDERED: PIPERACILLIN/TAZOBACTAM 3.375 GM in DEXTROSE 5% 100 ML IV SCH
[2019-02-06] MEDS ORDERED: PIPERACILLIN/TAZOBACTAM 4.5 GM in DEXTROSE 5% 100 ML IV SCH
[2019-02-06] MEDS: PIPERACILLIN/TAZOBACTAM 4.5 GM in DEXTROSE 5% 100 ML IV SCH ×3 (00:50→23:51)
[2019-02-06] MEDS: LEVOTHYROXINE SODIUM 50 MCG TABLET PO SCH (06:00)
[2019-02-06] MEDS: HEPARIN SOD 5,000 UNIT/0.5 ML VIAL SQ SCH ×3 (06:00→21:33)
[2019-02-06] MEDS ORDERED: SODIUM CHLORIDE 0.9% 1000ML 1,000 ML IV PRN (07:00)
[2019-02-06 07:44] LABS: Basophils # (auto) 0.03 K/uL (0-0.2); Basophils % (auto) 0.3 %; Eosinophils # (auto) 0.12 K/uL (0-0.5); Eosinophils % (auto) 1.1 %; Hematocrit (blood only) 31.2 % (37-47); Hemoglobin 10.7 g/dL (12.0-16.0); Immature Granulocytes # (auto) 0.03 K/uL (0.00-0.02); Immature Granulocytes % (auto) 0.3 %; Lymphocytes # (auto) 0.65 K/uL (1.2-3.4); Lymphocytes % (auto) 5.8 %; Mean Corpuscular Hgb Conc 34.3 g/dL (32-36); Mean Corpuscular Volume 95.4 fL (80-100); Mean Platelet Volume 9.5 fL (7.4-10.4); Monocytes % (auto) 7.1 %; Neutrophils # (auto) 9.59 K/uL (1.4-6.5); Neutrophils % (auto) 85.4 %; Platelet Count 147 K/uL (130-400); RDW Coefficient of Variation 16.2 % (11.5-14.5); RDW Standard Deviation 56.9 fL (36.4-46.3); Red Blood Count 3.27 M/uL (4.2-5.4); White Blood Count 11.22 K/uL (4.8-10.8)
[2019-02-06 08:26] LABS: Albumin Globulin Ratio 0.5 (0.9-2); Albumin Level 2.4 gm/dl (3.4-5.0); BUN Creatinine Ratio 5.2 (10-20); Bilirubin,Total 0.6 mg/dl (0.2-1); Calcium 8.8 mg/dl (8.5-10.1); Creatinine Clr Calc Pharmacy 8.1 ml/min; Est GFR (African American) 5.5; Est GFR (Non-African American) 4.7; Globulin 4.5 gm/dl (2.5-4.0); Total Protein 6.9 gm/dl (6.4-8.2)
[2019-02-06 08:45] LABS: Potassium 5.7 mmol/L (3.5-5.1)
[2019-02-06] MEDS: INSULIN ASPART 100 UNITS/ML 3 ML PEN SC SCH ×4 (08:46→21:45)
--- NOTE | 2019-02-06 09:13 | Pharmacy Report ---
Pharmacy Abx Initial Consult - Date of Service February 06, 2019 - Pharmacy Dosing Scope Date of Consult: 02/05 Consultation requested by: Nanda Dejesus Pharmacy is consulted to initiate vancomycin/zosyn dosing therapy, order appropriate labs and adjust drug dose/frequency. - Subjective The patient is a 68 year old F admitted on 02/03/19 17:36. - Objective Height: 5 ft 5 in Weight: 105.4 kg Vital Signs (Past 12hrs): Vital Signs Temp Pulse Pulse Pulse Resp BP Pulse Ox 02/06/19 07:26 36.8 C 82 18 110/67 100 02/06/19 03:52 36.8 C 81 18 145/80 H 100 02/05/19 23:09 77 02/05/19 22:30 36.7 C 77 77 18 97/57 L 98 Lab Results (24hrs): Laboratory Tests (24 Hours) 02/06/19 02/06/19 02/06/19 06:54 06:54 06:54 WBC 11.22 H Neut # (Auto) 9.59 H Creatinine 7.87 H* D Est Cr Clr Drug Dosing 8.1 Random Vancomycin 24.8 Micro Results: 02/05/19 18:26 Aerobic Blood Culture - Pending Blood Anaerobic Blood Culture - Pending 02/05/19 18:21 Aerobic Blood Culture - Pending Blood Anaerobic Blood Culture - Pending - Risk Factors for Resistance * Chronic dialysis within the past 30 days - Assessment & Plan Assessment 68 year old started on vancomycin/zosyn empirically after developing fever/altered mental status. Blood cultures x 2 are pending at this time. [facility] Plan Vancomycin IV * Patient received loading dose of vancomycin 2250 mg x 1 (~21 mg/kg) last evening * Random level this am prior to HD was 24.8 mcg/ml (goal 15-20 mcg/ml) - dialysis removes about ~30% of vancomycin, estimated level after dialysis closer to 17 mcg/ml * Will plan to redose after dialysis today with vancomycin 750 mg x 1 to maintain estimated peak of ~30 mcg/ml * Unclear to HD schedule at this time in the hospital setting (received 02/04 prior) - will follow and plan to order another random level prior to next session to assist with further dosing Piperacillin/tazobactam * 4.5 gm iv q 12 hrs - appropriate for patient on HD and BMI >/=35 kg/m2, no change in dosing Pharmacy will continue to follow and will adjust dose/frequency as necessary. Thank you.
--- NOTE | 2019-02-06 10:36 | Nephrology Progress Note ---
Date of Service February 06, 2019 Assessment & Plan (1) ESRD on dialysis: 68-year-old female with end-stage renal disease secondary to hypertension and safe nephropathy, on hemodialysis Wednesday, , Wednesday. Admitted with generalized weakness and volume overload. On admission troponin was just mildly elevated but she did not have any symptoms suggestive of acute coronary event. Although she has diastolic dysfunction this is more likely volume overload with noncompliance with fluid restriction and dialysis than to congestive heart failure. She has chronic history of high weight gain in between dialysis treatment. She left more than 2 kg above her dry weight after last dialysis. She did have fever and chills on admission which currently resolved. Electrolyte has been acceptable. Blood pressure well controlled. Denies significant shortness of breath. Unclear etiology for F/C on admission as well as overall not doing well over last few days. Although she is volume overloaded, that does not necessarily explain all her s/s. --She is more than 2 liters above her dry weight currently, will plan for 1.5 liter UF to get her close to her dry weight --discussed in detail about the importance of limiting fluid intake less than 1 L per day, avoid high salt food to minimize UF --continue lasix to 40 mg BID , may need 80 BID. --continue on phosphate binders and renal caps daily Will follow (2) Diabetes mellitus type 2 with complications: (3) Anemia: (4) Secondary hyperparathyroidism (of renal origin): Sammi Sanz was seen and examined during dialysis this morning. Blood pressure remained relatively stable, so far tolerating UF. Overall feeling well, Denies SOB or CP. She reports walking with walker yesterday and feels like she is able to of moved her from chair to bed. Review of Systems Review of Systems: Detailed review of system otherwise unremarkable Physical Exam Constitutional: well developed and well nourished; no acute distress Respiratory: normal respiratory effort, lungs clear to auscultation Cardiovascular: RRR, no murmur, no edema Neurologic: moves all extremities and awake; not confused Psychiatric: A+Ox3, euthymic affect Results & Data Vital Signs (Past 12 Hours) Vital Signs Temp Pulse Pulse Resp BP BP Pulse Ox 02/06/19 10:20 83 114/51 L 02/06/19 10:03 87 115/52 L 02/06/19 09:44 87 109/48 L 02/06/19 09:20 81 121/56 L 02/06/19 09:03 87 117/57 L 02/06/19 08:54 37.1 C 81 02/06/19 07:26 36.8 C 82 18 110/67 100 02/06/19 03:52 36.8 C 81 18 145/80 H 100 02/05/19 23:09 77 PG Care Time/CCT Total # of Minutes Spent Total Time Spent with Patient: Total time spent is greater than 50% in coordination of care (as documented) at patient's floor/unit and/or counseling patient: (1) Anemia Anemia type: due to chronic kidney disease Chronic kidney disease stage: on chronic dialysis Qualified Code(s): N18.6 - End stage renal disease; D63.1 - Anemia in chronic kidney disease; Z99.2 - Dependence on renal dialysis
[2019-02-06] MEDS: FUROSEMIDE 40 MG TAB PO SCH ×2 (12:37→17:44)
[2019-02-06] MEDS: NEPHROCAPS PO SCH (12:38)
[2019-02-06] MEDS: METOPROLOL TARTRATE 100 MG TAB PO SCH ×2 (12:38→21:31)
[2019-02-06] MEDS: AMIODARONE 200 MG TAB PO SCH ×2 (12:39→21:32)
[2019-02-06] MEDS: ATORVASTATIN 40 MG TAB PO SCH (12:40)
[2019-02-06] MEDS: CALCIUM ACETATE 667 MG CAP PO SCH ×3 (12:40→17:45)
[2019-02-06] MEDS: CLOPIDOGREL BISULFATE 75 MG TAB PO SCH (12:41)
[2019-02-06] MEDS: OMEGA-3 (PURIFIED FISH OIL) 1 GM CAP PO SCH ×3 (12:46→21:29)
[2019-02-06] MEDS ORDERED: INSULIN GLARGINE SOLOSTAR 100 UNITS/ML 3 ML PEN SC STA (12:50)
[2019-02-06] MEDS: PREGABALIN 25 MG CAP PO SCH ×2 (13:22→21:43)
--- NOTE | 2019-02-06 15:24 | Ultrasound Report ---
US gallbladder CLINICAL HISTORY: 68 years-old Female presenting with fever, change MS, gallstones. TECHNIQUE: Real-time grayscale and limited color Doppler ultrasound imaging of the abdomen limited to the right upper quadrant was performed. COMPARISON: CT from 02/03/2019. FINDINGS: Pancreas: Visualized portions of the pancreatic head and body normal. Liver: Mildly hyperechogenic parenchyma, although the right hemidiaphragm remains visible, likely ind icating mild steatosis. No sonographic evidence of hepatic mass. Main portal vein patent with normal directional flow. Biliary: No intrahepatic biliary ductal dilatation. Common bile duct measures up to 5 mm in diameter. Gallbladder: The gallbladder is physiologically distended. No evidence of gallstones, gallbladder wal l thickening, pathologic distention, or pericholecystic fluid or inflammatory change. Right kidney: Right renal atrophy. No hydronephrosis. The right kidney measures 8.3 cm in maximal sag ittal dimension. Ascites: None. Other: None. IMPRESSION: 1. No cholelithiasis or biliary ductal dilatation. Physiologic distention of the gallbladder. 2. Right renal atrophy. Electronically signed by: Peyman Obregon M.D. 02/06/2019 3:23 PM
[2019-02-06] MEDS ORDERED: VANCOMYCIN HCL 750 MG in SODIUM CHLORIDE 0.9% 250 ML IV ONE (16:00)
[2019-02-06] MEDS: ACETAMINOPHEN 325 MG TAB PO PRN (17:04)
--- NOTE | 2019-02-06 18:03 | XRay Report ---
XR chest 1V portable CLINICAL HISTORY: 68 years-old Female presenting with LLL pneumonia?. TECHNIQUE: Portable upright AP view of the chest was obtained. COMPARISON: 02/05/2019. FINDINGS: Atherosclerosis of the aortic arch. Cardiac silhouette enlarged. Asymmetric bronchial wall cuffing in the left lung with vague diffuse added density and basilar predominant opacity. No large effusion or pneumothorax. A small left pleural effusion is difficult to exclude. Degenerative changes of the estela ulders. Upper abdomen normal. IMPRESSION: 1. Asymmetric congestive changes in the left lung with asymmetric left basilar infiltrate concerning for pneumonia. PA and lateral views would better characterize this. Electronically signed by: Peyman Obregon M.D. 02/06/2019 6:01 PM
[2019-02-06] MEDS: INSULIN GLARGINE SOLOSTAR 100 UNITS/ML 3 ML PEN SC SCH ×2 (18:43→21:35)
[2019-02-06] MEDS: NYSTATIN POWDER 15GM BTL EXT SCH (20:00)
[2019-02-06] MEDS: CLOTRIMAZOLE VAGINAL CR 7 APPLN/45 GM TUBE PV SCH (20:01)
--- NOTE | 2019-02-06 20:15 | Hospitalist Progress Note ---
Date of Service February 06, 2019 Assessment & Plan (1) LLL pneumonia: Patient has had intermittent fevers, leukocytosis, altered MS, and repeat cxr after admission suggested LLL opacities. She has an ongoing O2 requirement. She has crackles in the LLL, and on repeat cxr today, there are again LLL opacities. I do believe she has a LLL pneumonia. She was started on IV zosyn/vancomycin yesterday thus day #2 of IV abx. Blood cx's remain negative. Check MRSA swab - if negative consider d/c of vancomycin. (2) Lumbar back pain: I reviewed the pt's CT of the abd/pelvis. 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 If pain persists will obtain MRI of the lumbar spine to r/o acute herniated disc, discitis, etc. Treat pain in meantime. Present on Admission?: No (3) Metabolic encephalopathy: in light of fevers this is likely due to infection. suspect LLL pneumonia. supportive care. avoid sedatives. Present on Admission?: Yes (4) Hyponatremia: Due to ESRD status. BMP in am. Present on Admission?: Yes (5) Hyperkalemia: 2nd to ESRD. Serial HD sessions. Present on Admission?: Yes (6) Congestive heart failure with LV diastolic dysfunction, NYHA class 3: Compensated. Cont BB, lasix, etc. Cont dialysis sessions for volume control. Present on Admission?: No (7) History of amputation below knee: no issues has prosthesis PT, OT evals Present on Admission?: Yes (8) Paroxysmal atrial fibrillation: controlled w/ amiodarone and metoprolol not on chronic anticoagulation Present on Admission?: No (9) Diabetes mellitus type 2 with complications: pharmacy managing appreciate their assistance Present on Admission?: Yes (10) Hypothyroidism: TSH 07/2018 wnl cont synthroid Present on Admission?: Yes (11) ESRD on dialysis: appreciate nephrology assistance I do not believe her HD sessions themselves are causing the confusion/lethargy directly I believe infectious process is big contributor s/p HD today w/o incident volume status looks good today Present on Admission?: Yes (12) Hypertension: controlled Present on Admission?: Yes (13) Morbid obesity with BMI of 40.0-44.9, adult: BMI 41.9 Present on Admission?: Yes (14) Vaginitis: Likely candidal. Treat with clotramizole per vagina nightly x minimum 3 days. (15) DVT prophylaxis: heparin spoke with -- I reported his concerns of nursing care to the charge nurse on evening of 02/06/19 PT, LAWRENCE Chapa I saw the patient post-dialysis today in her telemetry room. was at bedside. She was intermittently moaning. She was a/o x 3. When asked about the moaning she stated it was because of back pain in the lumbar region. No radiation to legs. reports no back pain at home pre-hospitalization but she started complaining of it yesterday sometime. She has had fair appetite at best. reports "She just hasn't been herself for about a week." She continues with intermittent fever. Continues with NC O2 requirement -- does not use O2 at home. very upset today -- states his had a small bowel movement in the bed yesterday and 2 staff members refused to clean it up. He asked the staff members about it and states they told him they "only clean it up at certain times of the day." (??) Review of Systems Constitutional: + fatigue and + anorexia; no chills Respiratory: no cough, no dyspnea and no wheezing Cardiovascular: no chest pain Gastrointestinal: no abdominal pain, no nausea and no vomiting Genitourinary: still makes urine; 1-2 times/day has not been foul-smelling has noted an odor in vaginal region however Musculoskeletal: + back pain (severe - lumbar - midline x 2 days); no joint pain Integumentary: no rash no recent tick bites Neurologic: no headache(s) Physical Exam Constitutional: + acute distress (moaning) and + morbidly obese ENMT: external ear and nose normal, oropharynx normal Respiratory: no respiratory distress Auscultation: + crackles (left base); no wheezes Cardiovascular: Rate/Rhythm: regular rate and regular rhythm Heart Sounds: normal S1 and normal S2; no murmur Vessels: posterior tibial pulses present and dorsalis pedis pulses present; no JVD Extremities: no edema Gastrointestinal (Abdomen): normal bowel sounds, soft, nontender, no hepatosplenomegaly Percussion/Palpation: + hernia (umbilical - reducible) Musculoskeletal: Spine: + lumbar spinal tenderness (severe - with palpation) right BKA Skin: no rashes, warm and dry Neurologic: strength 5/5 both arms; hip flexion left 4/5; hip flexion right 5/5 Psychiatric: Orientation: alert and oriented x 3 Genitourinary: candidal vaginitis present (chaperoned with staff to look at vulvar region) Results & Data Vital Signs (Past 12 Hours) Vital Signs Temp Pulse Pulse Pulse Resp BP BP 02/06/19 20:08 37.8 C H 88 18 116/68 02/06/19 16:00 92 H 02/06/19 15:22 37.3 C 93 H 18 107/58 L 02/06/19 12:54 37.1 C 88 126/58 L 02/06/19 12:20 89 118/56 L 02/06/19 12:00 89 112/56 L 02/06/19 11:40 87 115/52 L 02/06/19 11:20 84 127/54 L 02/06/19 11:00 81 104/48 L 02/06/19 10:40 85 109/53 L 02/06/19 10:20 83 114/51 L 02/06/19 10:03 87 115/52 L 02/06/19 09:44 87 109/48 L 02/06/19 09:20 81 121/56 L 02/06/19 09:03 87 117/57 L 02/06/19 08:54 37.1 C 81 Pulse Ox 02/06/19 20:08 95 02/06/19 16:00 02/06/19 15:22 91 02/06/19 12:54 02/06/19 12:20 02/06/19 12:00 02/06/19 11:40 02/06/19 11:20 02/06/19 11:00 02/06/19 10:40 02/06/19 10:20 02/06/19 10:03 02/06/19 09:44 02/06/19 09:20 02/06/19 09:03 02/06/19 08:54 Laboratory Results Laboratory Results - last 24 hr 02/05/19 02/06/19 02/06/19 20:09 06:54 06:54 WBC 11.22 H RBC 3.27 L Hgb 10.7 L Hct 31.2 L MCV 95.4 MCH 32.7 MCHC 34.3 RDW Std Deviation 56.9 H RDW Coeff of Veronica 16.2 H Plt Count 147 MPV 9.5 Immature Gran % (Auto) 0.3 Neut % (Auto) 85.4 Lymph % (Auto) 5.8 [place] % (Auto) 7.1 Eos % (Auto) 1.1 Baso % (Auto) 0.3 Immature Gran # (Auto) 0.03 H Neut # (Auto) 9.59 H Lymph # (Auto) 0.65 L [place] # (Auto) 0.80 H Eos # (Auto) 0.12 Baso # (Auto) 0.03 Sodium 129 L Potassium 5.7 H D Chloride 93 L Carbon Dioxide 27 Anion Gap 9.0 BUN 41 H D Creatinine 7.87 H* D Est Cr Clr Drug Dosing 8.1 Est GFR ( Amer) 5.5 Est GFR (Non-Af Amer) 4.7 BUN/Creatinine Ratio 5.2 L Glucose 157 H POC Glucose 196 H Calcium 8.8 Total Bilirubin 0.6 AST 25 ALT 15 Alkaline Phosphatase 61 NT-Pro-B Natriuret Pep 50383 H Total Protein 6.9 Albumin 2.4 L Globulin 4.5 H Albumin/Globulin Ratio 0.5 L Random Vancomycin 02/06/19 02/06/19 02/06/19 06:54 07:34 12:40 WBC RBC Hgb Hct MCV MCH MCHC RDW Std Deviation RDW Coeff of Veronica Plt Count MPV Immature Gran % (Auto) Neut % (Auto) Lymph % (Auto) [place] % (Auto) Eos % (Auto) Baso % (Auto) Immature Gran # (Auto) Neut # (Auto) Lymph # (Auto) [place] # (Auto) Eos # (Auto) Baso # (Auto) Sodium Potassium Chloride Carbon Dioxide Anion Gap BUN Creatinine Est Cr Clr Drug Dosing Est GFR ( Amer) Est GFR (Non-Af Amer) BUN/Creatinine Ratio Glucose POC Glucose 153 H 114 H Calcium Total Bilirubin AST ALT Alkaline Phosphatase NT-Pro-B Natriuret Pep Total Protein Albumin Globulin Albumin/Globulin Ratio Random Vancomycin 24.8 02/06/19 16:57 WBC RBC Hgb Hct MCV MCH MCHC RDW Std Deviation RDW Coeff of Veronica Plt Count MPV Immature Gran % (Auto) Neut % (Auto) Lymph % (Auto) [place] % (Auto) Eos % (Auto) Baso % (Auto) Immature Gran # (Auto) Neut # (Auto) Lymph # (Auto) [place] # (Auto) Eos # (Auto) Baso # (Auto) Sodium Potassium Chloride Carbon Dioxide Anion Gap BUN Creatinine Est Cr Clr Drug Dosing Est GFR ( Amer) Est GFR (Non-Af Amer) BUN/Creatinine Ratio Glucose POC Glucose 164 H Calcium Total Bilirubin AST ALT Alkaline Phosphatase NT-Pro-B Natriuret Pep Total Protein Albumin Globulin Albumin/Globulin Ratio Random Vancomycin Diagnostic Findings cxr, portable, LLL opacities PG Care Time/CCT Total # of Minutes Spent Total Time Spent with Patient: Total time spent is greater than 50% in coordination of care (as documented) at patient's floor/unit and/or counseling patient: (1) LLL pneumonia Pneumonia type: due to unspecified organism Qualified Code(s): J18.1 - Lobar pneumonia, unspecified organism (2) History of amputation below knee Laterality: right Qualified Code(s): Z89.511 - Acquired absence of right leg below knee (3) Hypothyroidism Hypothyroidism type: acquired Qualified Code(s): E03.9 - Hypothyroidism, unspecified (4) Hypertension Hypertension type: essential hypertension Qualified Code(s): I10 - Essential (primary) hypertension (5) Vaginitis Chronicity: acute Qualified Code(s): N76.0 - Acute vaginitis
[2019-02-06] MEDS: ASPIRIN 81 MG ECTAB PO SCH (21:31)
[2019-02-06] MEDS: LATANOPROST 0.005% OP SOLN 2.5 ML BTL OPB SCH (21:32)
[2019-02-07] MEDS: TRAMADOL HCL 50 MG TABLET PO PRN (00:01)
--- NOTE | 2019-02-07 00:32 | Progress Note ---
Date of Service February 07, 2019 For awareness for primary team, I received a text page at about 12:20 AM stating the following: "Umu Griffin in 288-2 had a small BM this evening. It was on the prior shift so I did not see it myself, but was described as a small amount of blood, not much stool was present with the BM. Pt stated she has a history of hemorr hoids. She states she is having abd pain with nausea which I gave her 50mg of Ultram for. She is currently resting in bed. Thanks" On brief chart review, yesterday's progress note is not yet finalized. There are no previous mention of concerns for anemia or GI bleeding. Hemoglobins have been stable in the mid 10's. Most recent vital signs are normal and stable. A morning CBC is already ordered. Zen Stearns, PGY3 Overnight call Results & Data Vital Signs (Past 12 Hours) Vital Signs Temp Pulse Pulse Pulse Resp BP Pulse Ox 02/06/19 23:00 36.6 C 83 18 120/74 96 02/06/19 20:08 37.8 C H 88 18 116/68 95 02/06/19 16:00 92 H 02/06/19 15:22 37.3 C 93 H 18 107/58 L 91 02/06/19 12:54 37.1 C 88 126/58 L
[2019-02-07] MEDS: HEPARIN SOD 5,000 UNIT/0.5 ML VIAL SQ SCH ×3 (05:47→20:19)
[2019-02-07] MEDS: LEVOTHYROXINE SODIUM 50 MCG TABLET PO SCH (05:47)
[2019-02-07] MEDS ORDERED: SODIUM CHLORIDE 0.9% 1000ML 1,000 ML IV PRN (07:59)
[2019-02-07] MEDS: INSULIN ASPART 100 UNITS/ML 3 ML PEN SC SCH ×4 (08:48→20:17)
[2019-02-07] MEDS: CALCIUM ACETATE 667 MG CAP PO SCH ×3 (08:49→17:46)
[2019-02-07] MEDS: AMIODARONE 200 MG TAB PO SCH ×2 (08:49→20:15)
[2019-02-07] MEDS: INSULIN GLARGINE SOLOSTAR 100 UNITS/ML 3 ML PEN SC SCH ×2 (08:52→20:18)
[2019-02-07] MEDS: FUROSEMIDE 40 MG TAB PO SCH ×2 (08:53→17:45)
[2019-02-07] MEDS: PREGABALIN 25 MG CAP PO SCH ×2 (08:54→20:25)
[2019-02-07] MEDS: ATORVASTATIN 40 MG TAB PO SCH (08:54)
[2019-02-07] MEDS: NYSTATIN POWDER 15GM BTL EXT SCH ×3 (08:54→20:15)
[2019-02-07] MEDS: NEPHROCAPS PO SCH (08:55)
[2019-02-07] MEDS: OMEGA-3 (PURIFIED FISH OIL) 1 GM CAP PO SCH ×3 (08:55→20:15)
[2019-02-07] MEDS: CLOPIDOGREL BISULFATE 75 MG TAB PO SCH (08:55)
[2019-02-07 09:09] LABS: Calcium 8.7 mg/dl (8.5-10.1); Creatinine Clr Calc Pharmacy 10.7 ml/min; Est GFR (African American) 7.6; Est GFR (Non-African American) 6.6
[2019-02-07 09:10] LABS: Potassium 4.4 mmol/L (3.5-5.1)
--- NOTE | 2019-02-07 10:17 | Nephrology Progress Note ---
Date of Service February 07, 2019 Assessment & Plan (1) ESRD on dialysis: 68-year-old female with end-stage renal disease secondary to hypertension and safe nephropathy, on hemodialysis Wednesday, , Wednesday. Admitted with generalized weakness and volume overload. On admission troponin was just mildly elevated but she did not have any symptoms suggestive of acute coronary event. Although she has diastolic dysfunction this is more likely volume overload with noncompliance with fluid restriction and dialysis than to congestive heart failure. She has chronic history of high weight gain in between dialysis treatment. She left more than 2 kg above her dry weight after last dialysis. She did have fever and chills on admission which currently resolved. Electrolyte has been acceptable. Blood pressure well controlled. Tolerated HD yesterday. --She is 2.5 liters above her dry weight currently, will plan for 2 liter UF to get her close to her dry weight --discussed in detail about the importance of limiting fluid intake less than 1 L per day, avoid high salt food to minimize UF --continue lasix to 40 mg BID --continue on phosphate binders and renal caps daily Will follow (2) Diabetes mellitus type 2 with complications: (3) Anemia: (4) Secondary hyperparathyroidism (of renal origin): Sammi Sanz was seen and examined this morning. Overall feeling well, Denies SOB or CP. Did well after HD yesterday, BP was stable, no confusion or changes in mental status after HD. She reports walking with walker yesterday and feels like she is able to of moved her from chair to bed. Had fever again yesterday and new CXR showing LL infiltrate, started on empiric antibiotic. Review of Systems Review of Systems: Detailed review of system otherwise unremarkable Physical Exam Constitutional: WD/WN, vitals as above well developed, well nourished and + morbidly obese; no acute distress and not edematous Neck: trachea midline Respiratory: normal respiratory effort, lungs clear to auscultation no cough Auscultation: no crackles, no rales and no wheezes Cardiovascular: RRR, no murmur, no edema Neurologic: moves all extremities and awake; not confused Psychiatric: A+Ox3, euthymic affect Results & Data Vital Signs (Past 12 Hours) Vital Signs Temp Pulse Pulse Pulse Resp BP BP 02/07/19 10:00 82 122/60 02/07/19 09:40 85 124/62 02/07/19 09:26 37.1 C 83 83 123/60 02/07/19 07:39 83 02/07/19 07:10 36.9 C 81 18 113/69 02/07/19 04:59 82 02/07/19 03:41 37.1 C 87 19 104/65 02/06/19 23:00 36.6 C 83 18 120/74 Pulse Ox 02/07/19 10:00 02/07/19 09:40 02/07/19 09:26 02/07/19 07:39 02/07/19 07:10 97 02/07/19 04:59 02/07/19 03:41 91 02/06/19 23:00 96 PG Care Time/CCT Total # of Minutes Spent Total Time Spent with Patient: Total time spent is greater than 50% in coordination of care (as documented) at patient's floor/unit and/or counseling patient: (1) Anemia Anemia type: due to chronic kidney disease Chronic kidney disease stage: on chronic dialysis Qualified Code(s): N18.6 - End stage renal disease; D63.1 - Anemia in chronic kidney disease; Z99.2 - Dependence on renal dialysis
[2019-02-07] MEDS: ONDANSETRON INJ 2 MG/ML 2 ML VIAL IV PRN ×2 (10:35→19:32)
[2019-02-07] MEDS: METOPROLOL TARTRATE 100 MG TAB PO SCH ×2 (13:06→20:15)
[2019-02-07] MEDS ORDERED: Nursing to Pharmacy Communication ONE (14:24)
[2019-02-07] MEDS: PIPERACILLIN/TAZOBACTAM 4.5 GM in DEXTROSE 5% 100 ML IV SCH (14:27)
--- NOTE | 2019-02-07 14:51 | Pharmacy Report ---
Glycemic Control Progress Note - Date of Service February 07, 2019 - Scope Glycemic Pharmacist consulted for glycemic control to write orders per [facility] inpatient glycemic control protocol. - Objective Accuchecks BSG(last 24 hours):: 02/06/19 02/06/19 02/06/19 16:57 20:38 21:41 Glucose POC Glucose 164 H 260 H 266 H 02/07/19 02/07/19 02/07/19 07:38 07:39 14:25 Glucose 197 H POC Glucose 204 H 115 H HbA1c:: Hemoglobin A1c 8.6 % (4.5-5.6) H 02/04/19 05:48 - Recent Pertinent Medications The patient is currently receiving: * Basal insulin: Lantus 16 units in the morning and 50-65 units in the evening * Correctional Insulin: Novolog Correction per scale ACHS Goal Range: Low 120 mg/dL - High 160 mg/dL Correction Factor: 12 mg/dL/unit * Prandial insulin: Per carb ratio of 1 unit per 4 grams CHO consumed - Outpatient Anti-Diabetic Meds Lantus 36 units in the morning and 66 units in the evening Lispro 10-20 units TIDM - Assessment & Plan ASSESSMENT: * See progress note from 02/04/19 for more background info, in short: * Pt receiving SQ basal bolus insulin regimen for hyperglycemia secondary to baseline DM (outpatient regimen on hold),stress/infection (pneumonia on vancomycin and Zosyn). * Patient is currently receiving an average of 119 units of insulin per day * 81 units of basal insulin * 38 units of prandial/correctional insulin * BSGs ranging 114 - 260 mg/dl over the past 24hrs * Changes needed to insulin regimen: * AM Fasting BSG = 204 mg/dl. This is above goal range for patient based on inpatient targets and co-morbidities. The patient's regimen is almost entirely basal insulin. Will continue with a basal rate of approximately 80 units/day and see how effective this is. Will tighten Novolog to push towards a more 50/50 splits. * Post-prandial BSGs tended to be elevated yesterday. Tighten. * Total daily dose = >120 units. May need to evenly re-distribute regimen 50%:50% basal:prandial to prevent hypo/hyperglycemia. PLAN FOR INPATIENT GLYCEMIC CONTROL: * Increasing Lantus to 20 units SQ in the morning and 60 units HS (50 units if blood sugar under 140 mg/dL) * Continuing correction factor to 12 mg/dl/unit * Tightening carb ratio to 1 unit per 3 grams CHO consumed * Continuing goal range of Low 110 mg/dL - High 140 mg/dL RECOMMENDATIONS FOR DISCHARGE: * Patient is a dialysis patient - recommend following outpatient blood sugars to make adjustments. * Please note that the plan above was derived based on current level of insulin resistance and hospital stress. These recommendations are appropriate for inpatient admission only. Plan of care upon discharge will need to be reassessed to avoid potential outpatient hypo/hyperglycemia. Thank you.
--- NOTE | 2019-02-07 17:40 | Magnetic Resonance Report ---
LUMBAR SPINE MRI HISTORY: severe back pain, fevers; eval abscess, etc TECHNIQUE: Multiplanar multisequence MRI of the lumbar spine was performed without the use of contras t. COMPARISON: None. FINDINGS: For the purpose of the report the L5-S1 disc space will be located on axial image 27 of 30. Mild interstitial scoliosis of the lumbar spine. A few scattered Schmorl's nodes are identified. The conus terminates at the T12-L1 disc space level. No fracture or subluxation. Paraspinal soft tissues appear unremarkable. Mild endplate edema within the lower lumbar spine is likely due to the degenerat emili change. Mild to moderate disc space narrowing within the lower thoracic spine. There is mild disc space narrowing at L1-L2 and L2-L3. There is moderate to severe disc space narrowing at L3-L4 and mo derate disc space narrowing at L4-L5 and L5-S1. [id number] facet degenerative changes within th e lumbar spine. Suboptimal evaluation for an abscess due to the lack of intravenous contrast. However , there are no definite epidural or paraspinal fluid collections. T12-L1: Moderate size central disc extrusion with superior subligamentous migration. This measures 14 x 6 mm in size and results in moderate to severe central canal narrowing at this level. This results in mass effect along the cauda equina. L1-L2: Broad-based posterior disc bulge with a small right paracentral focal disc protrusion. This ab uts the transiting right L2 nerve roots. There is mild central canal and mild bilateral neural forami nal narrowing. L2-L3: Broad-based posterior disc bulge without significant central canal or neural foraminal narrowi ng. L3-L4: Small broad-based posterior disc bulge without significant central canal narrowing. No signifi cant neural foraminal narrowing. L4-L5: Broad-based posterior disc bulge with a moderate sized right paracentral broad-based disc prot rusion. This results in moderate central canal and moderate right neural foraminal narrowing. There i s also mild left-sided neural foraminal narrowing. The disc protrusion abuts the transiting right L5 nerve roots. L5-S1: Moderate size broad-based central disc protrusion resulting in mild central canal and mild to moderate bilateral neural foraminal narrowing. The disc protrusion abuts the transiting right S1 nerv e roots. IMPRESSION: 1. Multiple disc herniations within the lumbar spine and T12-L1 levels as described above. The larges t disc herniation at T12-L1 results in moderate to severe central canal narrowing. 2. No fracture or subluxation. 3. Mild dextroscoliosis. 4. Suboptimal evaluation for an epidural or paraspinal assess due to the lack of intravenous contrast . However, no definite fluid collections identified to suggest an abscess. Electronically signed by: Leodan Mccray M.D. 02/07/2019 5:38 PM
[2019-02-07] MEDS: ASPIRIN 81 MG ECTAB PO SCH (20:14)
[2019-02-07] MEDS: LATANOPROST 0.005% OP SOLN 2.5 ML BTL OPB SCH (20:15)
[2019-02-07] MEDS: CLOTRIMAZOLE VAGINAL CR 7 APPLN/45 GM TUBE PV SCH (20:16)
--- NOTE | 2019-02-07 20:56 | Hospitalist Progress Note ---
Date of Service February 07, 2019 Assessment & Plan (1) LLL pneumonia: Day #3 zosyn. MRSA swab negative - d/c vanco. Blood cx's remain negative. Clinically improving. Wean O2 as tolerated. Covering for gram negatives in light of frequent healthcare exposure. (2) Lumbar back pain: I reviewed the pt's CT of the abd/pelvis. 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 Since pain is persisting will obtain MRI lumbar spine to r/o diskitis, abscess, severe DJD, etc. Treat pain in meantime. (3) Metabolic encephalopathy: due to pneumonia - improving (4) Hyponatremia: Due to ESRD status. Stable. (5) Hyperkalemia: 2nd to ESRD - resolved. (6) Congestive heart failure with LV diastolic dysfunction, NYHA class 3: Compensated. Cont BB, lasix, etc. Cont dialysis sessions for volume control. (7) History of amputation below knee: no issues has prosthesis PT, OT evals (8) Paroxysmal atrial fibrillation: controlled w/ amiodarone and metoprolol not on chronic anticoagulation (9) Diabetes mellitus type 2 with complications: pharmacy managing appreciate their assistance control adequate (10) Hypothyroidism: TSH 07/2018 wnl cont synthroid (11) ESRD on dialysis: appreciate nephrology assistance I do not believe her HD sessions themselves are causing the confusion/lethargy directly I believe infectious process (pneumonia) is big contributor s/p HD today w/o incident volume status again looks good today (12) Hypertension: controlled (13) Morbid obesity with BMI of 40.0-44.9, adult: BMI now <40 s/p multiple HD sessions (14) Vaginitis: Likely candidal. Treat with clotramizole per vagina nightly x minimum 3 days. (15) DVT prophylaxis: heparin progressing updated Subjective patient feels better today. still with lumbar back pain. about the same as yesterday. some pain radiating into buttocks. at bedside - he agrees is improved today. more clear mentation today. still requiring O2. tele stable overnight. Review of Systems Constitutional: + fatigue; no fever, no chills and no anorexia Respiratory: no cough and no dyspnea Cardiovascular: no chest pain Physical Exam Constitutional: + morbidly obese; no acute distress and no altered mental status ENMT: external ear and nose normal, oropharynx normal Respiratory: no respiratory distress Auscultation: + crackles (left base); no wheezes Cardiovascular: Rate/Rhythm: regular rate and regular rhythm Heart Sounds: normal S1 and normal S2; no murmur Vessels: posterior tibial pulses present and dorsalis pedis pulses present; no JVD Extremities: no edema Gastrointestinal (Abdomen): normal bowel sounds, soft, nontender, no hepatosplenomegaly Percussion/Palpation: + hernia (umbilical - reducible) Musculoskeletal: Spine: + lumbar spinal tenderness (with palpation - not as severe as yesterday) right BKA Skin: no rashes, warm and dry Psychiatric: Orientation: alert and oriented x 3 Results & Data Vital Signs (Past 12 Hours) Vital Signs Temp Pulse Pulse Pulse Resp BP BP 02/07/19 20:06 37.0 C 90 19 143/78 H 02/07/19 17:42 91 H 119/68 02/07/19 13:28 36.5 C 85 85 139/74 139/74 02/07/19 13:00 73 122/57 L 02/07/19 12:40 82 130/58 L 02/07/19 12:20 83 122/55 L 02/07/19 12:00 82 126/59 L 02/07/19 11:40 81 127/40 L 02/07/19 11:20 80 113/55 L 02/07/19 11:00 80 108/52 L 02/07/19 10:40 81 115/52 L 02/07/19 10:20 81 112/57 L 02/07/19 10:00 82 122/60 02/07/19 09:40 85 124/62 02/07/19 09:26 37.1 C 83 83 123/60 Pulse Ox 02/07/19 20:06 94 02/07/19 17:42 95 02/07/19 13:28 02/07/19 13:00 02/07/19 12:40 02/07/19 12:20 02/07/19 12:00 02/07/19 11:40 02/07/19 11:20 02/07/19 11:00 02/07/19 10:40 02/07/19 10:20 02/07/19 10:00 02/07/19 09:40 02/07/19 09:26 Laboratory Results Laboratory Results - last 24 hr 02/06/19 02/06/19 02/07/19 20:38 21:41 07:38 Sodium Potassium Chloride Carbon Dioxide Anion Gap BUN Creatinine Est Cr Clr Drug Dosing Est GFR ( Amer) Est GFR (Non-Af Amer) BUN/Creatinine Ratio Glucose POC Glucose 260 H 266 H 204 H Calcium Nasal Screen MRSA (PCR) 02/07/19 02/07/19 02/07/19 07:39 14:25 15:24 Sodium 132 L Potassium 4.4 D Chloride 95 L Carbon Dioxide 26 Anion Gap 11.0 BUN 30 H Creatinine 6.01 H* D Est Cr Clr Drug Dosing 10.7 Est GFR ( Amer) 7.6 Est GFR (Non-Af Amer) 6.6 BUN/Creatinine Ratio 5.0 L Glucose 197 H POC Glucose 115 H Calcium 8.7 Nasal Screen MRSA (PCR) Negative 02/07/19 02/07/19 15:58 20:12 Sodium Potassium Chloride Carbon Dioxide Anion Gap BUN Creatinine Est Cr Clr Drug Dosing Est GFR ( Amer) Est GFR (Non-Af Amer) BUN/Creatinine Ratio Glucose POC Glucose 168 H 192 H Calcium Nasal Screen MRSA (PCR) PG Care Time/CCT Total # of Minutes Spent Total Time Spent with Patient: Total time spent is greater than 50% in coordination of care (as documented) at patient's floor/unit and/or counseling patient: (1) Hypothyroidism Hypothyroidism type: acquired Qualified Code(s): E03.9 - Hypothyroidism, unspecified (2) History of amputation below knee Laterality: right Qualified Code(s): Z89.511 - Acquired absence of right leg below knee (3) Vaginitis Chronicity: acute Qualified Code(s): N76.0 - Acute vaginitis (4) LLL pneumonia Pneumonia type: due to unspecified organism Qualified Code(s): J18.1 - Lobar pneumonia, unspecified organism (5) Hypertension Hypertension type: essential hypertension Qualified Code(s): I10 - Essential (primary) hypertension
[2019-02-08] MEDS: PIPERACILLIN/TAZOBACTAM 4.5 GM in DEXTROSE 5% 100 ML IV SCH ×2 (01:04→13:16)
[2019-02-08] MEDS: HEPARIN SOD 5,000 UNIT/0.5 ML VIAL SQ SCH ×3 (05:47→21:20)
[2019-02-08] MEDS: LEVOTHYROXINE SODIUM 50 MCG TABLET PO SCH (05:47)
[2019-02-08 05:58] LABS: Hemoglobin 9.9 g/dL (12.0-16.0); Mean Corpuscular Hgb Conc 34.1 g/dL (32-36); Mean Corpuscular Volume 94.8 fL (80-100); Mean Platelet Volume 9.7 fL (7.4-10.4); Nucleated RBC # (auto) 0.03 K/uL (0-0); Nucleated RBC % (auto) 0.2 %; Platelet Count 161 K/uL (130-400); RDW Coefficient of Variation 16.2 % (11.5-14.5); RDW Standard Deviation 55.9 fL (36.4-46.3); Red Blood Count 3.06 M/uL (4.2-5.4); White Blood Count 11.66 K/uL (4.8-10.8)
[2019-02-08 06:35] LABS: BUN Creatinine Ratio 4.1 (10-20); Calcium 8.6 mg/dl (8.5-10.1); Creatinine Clr Calc Pharmacy 15.4 ml/min; Est GFR (Non-African American) 10.3; Potassium 3.7 mmol/L (3.5-5.1)
[2019-02-08] MEDS: INSULIN ASPART 100 UNITS/ML 3 ML PEN SC SCH ×4 (08:39→21:27)
[2019-02-08] MEDS: CALCIUM ACETATE 667 MG CAP PO SCH ×3 (08:43→17:33)
[2019-02-08] MEDS: AMIODARONE 200 MG TAB PO SCH ×2 (08:43→21:19)
[2019-02-08] MEDS: INSULIN GLARGINE SOLOSTAR 100 UNITS/ML 3 ML PEN SC SCH ×2 (08:44→21:26)
[2019-02-08] MEDS: ATORVASTATIN 40 MG TAB PO SCH (08:45)
[2019-02-08] MEDS: FUROSEMIDE 40 MG TAB PO SCH ×2 (08:45→17:32)
[2019-02-08] MEDS: METOPROLOL TARTRATE 100 MG TAB PO SCH ×2 (08:46→21:19)
[2019-02-08] MEDS: NYSTATIN POWDER 15GM BTL EXT SCH ×3 (08:46→21:21)
[2019-02-08] MEDS: NEPHROCAPS PO SCH (08:47)
[2019-02-08] MEDS: OMEGA-3 (PURIFIED FISH OIL) 1 GM CAP PO SCH ×3 (08:47→21:19)
[2019-02-08] MEDS: CLOPIDOGREL BISULFATE 75 MG TAB PO SCH (08:48)
[2019-02-08] MEDS: PREGABALIN 25 MG CAP PO SCH ×2 (08:58→21:25)
--- NOTE | 2019-02-08 09:43 | Nephrology Progress Note ---
Date of Service February 08, 2019 Assessment & Plan (1) ESRD on dialysis: 68-year-old female with end-stage renal disease secondary to hypertension and diabetic nephropathy, on hemodialysis Wednesday, , Wednesday. Admitted with generalized weakness, F/C and volume overload. On admission troponin was just mildly elevated but she did not have any symptoms suggestive of acute coronary event. Although she has diastolic dysfunction this is more likely volume overload with noncompliance with fluid restriction and dialysis than to congestive heart failure. She has chronic history of high weight gain in between dialysis treatment. She left more than 2 kg above her dry weight after last dialysis. She did have fever and chills on admission which resolved. Initial CXR with congestion but repeat CXR showed LLL pneumonia and started on antibiotic 02/06/19 Electrolyte has been acceptable. Blood pressure well controlled. Tolerated HD yesterday. --HD tomorrow, will plan for 2 liter UF to get her close to her dry weight --discussed again about the importance of limiting fluid intake less than 1 L per day, avoid high salt food to minimize UF --continue lasix to 40 mg BID --continue on phosphate binders and renal caps daily --JOHN 4000 u with HD tomorrow Will follow (2) Diabetes mellitus type 2 with complications: (3) Anemia: (4) Secondary hyperparathyroidism (of renal origin): Sammi Sanz was seen and examined this morning. Overall feeling well, Denies SOB or CP but still requiring NC O2. Did well after HD yesterday, BP was stable, no confusion or changes in mental status after HD. Denies fever or chills. BP stable. Review of Systems Review of Systems: Detailed review of system otherwise unremarkable Physical Exam Constitutional: WD/WN, vitals as above well developed, well nourished and + morbidly obese; no acute distress and not edematous Neck: trachea midline Respiratory: normal respiratory effort, lungs clear to auscultation no cough Auscultation: no crackles, no rales and no wheezes Cardiovascular: RRR, no murmur, no edema Musculoskeletal: Head/Neck/Chest: neck supple Extremities: + amputation noted (Rt BKA) Gait: normal gait Neurologic: moves all extremities and awake; not confused Psychiatric: A+Ox3, euthymic affect Results & Data Vital Signs (Past 12 Hours) Vital Signs Temp Pulse Pulse Pulse Resp BP BP 02/08/19 07:48 79 02/08/19 07:07 36.6 C 78 18 144/74 H 02/08/19 04:45 36.9 C 79 18 131/71 02/08/19 00:25 88 02/07/19 23:25 36.7 C 86 17 145/76 H Pulse Ox 02/08/19 07:48 02/08/19 07:07 98 02/08/19 04:45 100 02/08/19 00:25 02/07/19 23:25 96 PG Care Time/CCT Total # of Minutes Spent Total Time Spent with Patient: Total time spent is greater than 50% in coordination of care (as documented) at patient's floor/unit and/or counseling patient: (1) Anemia Anemia type: due to chronic kidney disease Chronic kidney disease stage: on chronic dialysis Qualified Code(s): N18.6 - End stage renal disease; D63.1 - Anemia in chronic kidney disease; Z99.2 - Dependence on renal dialysis
[2019-02-08] MEDS: OXYCODONE/ACETAMINOPHEN 5mg/325mg TAB PO PRN ×2 (13:34→23:56)
--- NOTE | 2019-02-08 20:31 | Hospitalist Progress Note ---
Date of Service February 08, 2019 Assessment & Plan (1) LLL pneumonia: Clinically improving/resolving. Day #4 zosyn. MRSA swab negative - vanco previously stopped. Blood cx's remain negative. O2 weaned off. Covering for gram negatives in light of frequent healthcare exposure. Can possibly transition to PO levaquin tomorrow. (2) Lumbar back pain: MRI l-spine with severe DJD T12-L1 with mod-severe spinal stenosis. No sensory level based on symptoms and no weakness of the arms/legs. Pain likely due to DJD. Treat pain as needed. (3) Metabolic encephalopathy: due to pneumonia - resolved. (4) Hyponatremia: Due to ESRD status. Stable. (5) Hyperkalemia: 2nd to ESRD - resolved. (6) Congestive heart failure with LV diastolic dysfunction, NYHA class 3: Compensated. Cont BB, lasix, etc. O2 weaned off. (7) History of amputation below knee: RIGHT. no issues has prosthesis PT, OT evals pending (8) Paroxysmal atrial fibrillation: controlled w/ amiodarone and metoprolol not on chronic anticoagulation reason? NSR on tele (9) Diabetes mellitus type 2 with complications: pharmacy managing appreciate their assistance uncontrolled as her appetite has improved adjust insulins (10) Hypothyroidism: TSH 07/2018 wnl cont synthroid (11) ESRD on dialysis: appreciate nephrology assistance volume status appropriate today (12) Hypertension: controlled (13) Morbid obesity with BMI of 40.0-44.9, adult: BMI now <40 s/p multiple HD sessions (14) Vaginitis: Likely candidal. Treat with clotramizole per vagina nightly x minimum 3 days. (15) DVT prophylaxis: heparin progressing nicely updated again today home tomorrow if cleared by PT/OT?? Subjective patient sitting in chair upon my arrival. wearing prosthesis on right leg. she looks great. concurs she is back to normal/baseline. eating better. no dyspnea or cough. back pain improved. overall feels much better. asks about d/c home and timing of such. denies weakness of legs. Review of Systems Constitutional: no fever, no chills, no fatigue and no anorexia Respiratory: no cough, no dyspnea, no dyspnea on exertion, no sputum production and no wheezing Cardiovascular: no chest pain, no orthopnea, no paroxysmal nocturnal dyspnea and no edema Gastrointestinal: no abdominal pain, no nausea and no vomiting Physical Exam Constitutional: + morbidly obese; no acute distress and no altered mental status looks great today ENMT: external ear and nose normal, oropharynx normal Respiratory: normal respiratory effort, lungs clear to auscultation (scant rales left base) Cardiovascular: Rate/Rhythm: regular rate and regular rhythm Heart Sounds: normal S1 and normal S2; no murmur Vessels: posterior tibial pulses present and dorsalis pedis pulses present; no JVD Extremities: no edema Gastrointestinal (Abdomen): normal bowel sounds, soft, nontender, no hepatosplenomegaly Percussion/Palpation: + hernia (umbilical - reducible) Musculoskeletal: Spine: + lumbar spinal tenderness (with palpation - minimal today) right leg BKA with prosthesis in place Skin: no rashes, warm and dry Neurologic: strength 5/5 b/l hip flexion/extension; 5/5 strength left foot dorsiflexion/plantarflexion Psychiatric: Orientation: alert and oriented x 3 Results & Data Vital Signs (Past 12 Hours) Vital Signs Temp Pulse Pulse Pulse Resp BP Pulse Ox 02/08/19 19:20 36.4 C L 75 18 120/71 92 02/08/19 16:36 79 02/08/19 14:57 36.7 C 75 18 124/67 97 02/08/19 11:26 36.4 C L 75 18 126/69 100 Laboratory Results Laboratory Results - last 24 hr 02/08/19 02/08/19 02/08/19 05:36 05:36 05:36 WBC 11.66 H RBC 3.06 L Hgb 9.9 L Hct 29.0 L MCV 94.8 MCH 32.4 MCHC 34.1 RDW Std Deviation 55.9 H RDW Coeff of Veronica 16.2 H Plt Count 161 MPV 9.7 Absolute Nucleated RBC 0.03 H Nucleated RBC % (auto) 0.2 Sodium 131 L Potassium 3.7 D Chloride 92 L Carbon Dioxide 31 Anion Gap 8.0 BUN 17 Creatinine 4.13 H D Est Cr Clr Drug Dosing 15.4 Est GFR ( Amer) 12.0 Est GFR (Non-Af Amer) 10.3 BUN/Creatinine Ratio 4.1 L Glucose 140 H POC Glucose Calcium 8.6 Random Vancomycin 17.6 02/08/19 02/08/19 02/08/19 07:31 11:38 16:38 WBC RBC Hgb Hct MCV MCH MCHC RDW Std Deviation RDW Coeff of Veronica Plt Count MPV Absolute Nucleated RBC Nucleated RBC % (auto) Sodium Potassium Chloride Carbon Dioxide Anion Gap BUN Creatinine Est Cr Clr Drug Dosing Est GFR ( Amer) Est GFR (Non-Af Amer) BUN/Creatinine Ratio Glucose POC Glucose 153 H 182 H 215 H Calcium Random Vancomycin PG Care Time/CCT Total # of Minutes Spent Total Time Spent with Patient: Total time spent is greater than 50% in coordination of care (as documented) at patient's floor/unit and/or counseling patient: (1) Hypothyroidism Hypothyroidism type: acquired Qualified Code(s): E03.9 - Hypothyroidism, unspecified (2) History of amputation below knee Laterality: right Qualified Code(s): Z89.511 - Acquired absence of right leg below knee (3) Vaginitis Chronicity: acute Qualified Code(s): N76.0 - Acute vaginitis (4) LLL pneumonia Pneumonia type: due to unspecified organism Qualified Code(s): J18.1 - Lobar pneumonia, unspecified organism (5) Hypertension Hypertension type: essential hypertension Qualified Code(s): I10 - Essential (primary) hypertension
[2019-02-08] MEDS: ASPIRIN 81 MG ECTAB PO SCH (21:20)
[2019-02-08] MEDS: CLOTRIMAZOLE VAGINAL CR 7 APPLN/45 GM TUBE PV SCH (21:20)
[2019-02-08] MEDS: LATANOPROST 0.005% OP SOLN 2.5 ML BTL OPB SCH (21:35)
[2019-02-09] MEDS: ONDANSETRON INJ 2 MG/ML 2 ML VIAL IV PRN ×2 (00:02→20:33)
[2019-02-09] MEDS: PIPERACILLIN/TAZOBACTAM 4.5 GM in DEXTROSE 5% 100 ML IV SCH ×2 (01:35→14:04)
[2019-02-09] MEDS: HEPARIN SOD 5,000 UNIT/0.5 ML VIAL SQ SCH ×3 (05:21→20:45)
[2019-02-09] MEDS: LEVOTHYROXINE SODIUM 50 MCG TABLET PO SCH (05:22)
[2019-02-09] MEDS ORDERED: EPOETIN ALFA 4,000 UNIT/ML VIAL IV SCH (07:00)
[2019-02-09] MEDS ORDERED: SODIUM CHLORIDE 0.9% 1000ML 1,000 ML IV PRN (07:00)
[2019-02-09] MEDS: CALCIUM ACETATE 667 MG CAP PO SCH ×3 (07:59→17:13)
[2019-02-09] MEDS: ATORVASTATIN 40 MG TAB PO SCH (08:05)
[2019-02-09] MEDS: PREGABALIN 25 MG CAP PO SCH ×2 (08:06→20:52)
[2019-02-09] MEDS: NEPHROCAPS PO SCH (08:06)
[2019-02-09] MEDS: NYSTATIN POWDER 15GM BTL EXT SCH ×3 (08:06→20:44)
[2019-02-09] MEDS: OMEGA-3 (PURIFIED FISH OIL) 1 GM CAP PO SCH ×3 (08:07→20:43)
[2019-02-09] MEDS: CLOPIDOGREL BISULFATE 75 MG TAB PO SCH (08:07)
[2019-02-09] MEDS: INSULIN GLARGINE SOLOSTAR 100 UNITS/ML 3 ML PEN SC SCH ×2 (08:09→20:41)
[2019-02-09] MEDS: INSULIN ASPART 100 UNITS/ML 3 ML PEN SC SCH ×4 (08:10→20:40)
[2019-02-09 08:17] LABS: Albumin Level 2.1 gm/dl (3.4-5.0); BUN Creatinine Ratio 5.7 (10-20); Calcium 8.6 mg/dl (8.5-10.1); Creatinine Clr Calc Pharmacy 10.7 ml/min; Est GFR (African American) 7.6; Est GFR (Non-African American) 6.6; Phosphorus 3.9 mg/dl (2.5-4.9); Potassium 4.2 mmol/L (3.5-5.1)
--- NOTE | 2019-02-09 10:05 | Pharmacy Report ---
Glycemic Control Progress Note - Date of Service February 09, 2019 - Scope Glycemic Pharmacist consulted for glycemic control to write orders per [facility] inpatient glycemic control protocol. - Objective Accuchecks BSG(last 24 hours):: 02/08/19 02/08/19 02/08/19 11:38 16:38 20:14 Glucose POC Glucose 182 H 215 H 232 H 02/09/19 02/09/19 07:05 07:49 Glucose 153 H POC Glucose 165 H HbA1c:: Hemoglobin A1c 8.6 % (4.5-5.6) H 02/04/19 05:48 - Recent Pertinent Medications The patient is currently receiving: * Basal insulin: Lantus 20 units SQ in the AM and 60 units in the evening * Correctional Insulin: Novolog Correction per scale ACHS Goal Range: Low 120 mg/dL - High 160 mg/dL Correction Factor: 12 mg/dL/unit * Prandial insulin: Per carb ratio of 1 unit per 3 grams CHO consumed - Outpatient Anti-Diabetic Meds Lantus 36 units in the morning and 66 units in the evening novolog 10-20 units TIDM - Assessment & Plan ASSESSMENT: * See progress note from 02/04/19 for more background info, in short: * Pt receiving SQ basal bolus insulin regimen for hyperglycemia secondary to baseline DM (outpatient regimen on hold),stress/infection (on Zosyn for pneumonia), * Patient is currently receiving an average of 141 units of insulin per day * 80 units of basal insulin * 61 units of prandial/correctional insulin * BSGs ranging 153 - 232 mg/dl over the past 24hrs * Changes needed to insulin regimen: * AM Fasting BSG = 165 mg/dl. This is in goal range for patient based on inpatient targets and co-morbidities. Therefore Basal insulin will be increased as fasting is trending upwards. * Post-prandial BSGs were elevated yesterday and trended upwards throughout the day. The patient's CR was tightened the other day therefore will tighten CF this morning. CR may be tightened further. * Total daily dose = >150 units. PLAN FOR INPATIENT GLYCEMIC CONTROL: * INCREASING Lantus to 25 units in the morning and 65 units in the evening (60 units if blood sugar under 160 mg/dL) SQ * TIGHTENING correction factor to 10 mg/dl/unit * Continuing carb ratio of 1 unit per 3 grams CHO consumed * Continuing goal range of Low 120 mg/dL - High 160 mg/dL RECOMMENDATIONS FOR DISCHARGE: * Patient is a hemodialysis patient so therefore her HbA1C does not necessarily line up with glycemic control. Recommend following blood glucose logs at home and adjusting insulin to this. * Please note that the plan above was derived based on current level of insulin resistance and hospital stress. These recommendations are appropriate for inpati ent admission only. Plan of care upon discharge will need to be reassessed to avoid potential outpatient hypo/hyperglycemia. Thank you.
[2019-02-09] MEDS: TRAMADOL HCL 50 MG TABLET PO PRN (10:42)
[2019-02-09] MEDS ORDERED: EPOETIN ALFA 4,000 UNIT/ML VIAL IV ONE (11:01)
--- NOTE | 2019-02-09 12:21 | Nephrology Progress Note ---
Date of Service February 09, 2019 Assessment & Plan (1) ESRD on dialysis: 68-year-old female with end-stage renal disease secondary to hypertension and diabetic nephropathy, on hemodialysis Wednesday, , Wednesday. Admitted with generalized weakness, F/C and volume overload. On admission troponin was just mildly elevated but she did not have any symptoms suggestive of acute coronary event. Initial CXR with congestion but repeat CXR showed LLL pneumonia and started on antibiotic 02/06/19 Electrolyte has been acceptable. Blood pressure well controlled. Tolerating HD well. --HD orders entered into EMR and discussed with HD nurse --discussed again about the importance of limiting fluid intake less than 1 L per day, avoid high salt food to minimize UF --continue lasix to 40 mg BID --continue on phosphate binders and renal caps daily --JOHN 4000 u with HD today (2) Diabetes mellitus type 2 with complications: (3) Anemia: (4) Secondary hyperparathyroidism (of renal origin): Subjective No acute events overnight. Umu was seen and evaluated during HD today. She is tolerating treatment well. Review of Systems Review of Systems: All systems reviewed & are unremarkable except as noted in HPI & below Physical Exam Constitutional: well developed and + obese; no acute distress Eyes: no scleral abnormality and no corneal abnormality ENMT: Ears: no hearing impairment Mouth: no oral mucosal abnormality Neck: normal visual inspection; + trachea not midline Respiratory: normal respiratory effort Auscultation: lungs clear to auscultation bilaterally Cardiovascular: Rate/Rhythm: regular rate Heart Sounds: normal S1, normal S2 and + murmur Extremities: + AV fistula Gastrointestinal (Abdomen): Percussion/Palpation: abdomen soft; abdomen nontender Musculoskeletal: Extremities: no cyanosis and no clubbing Skin: normal turgor; no lesions Neurologic: Motor/Sensory: no tremor and no asterixis Psychiatric: Orientation: alert and oriented x 3 Results & Data Vital Signs (Past 12 Hours) Vital Signs Temp Pulse Pulse Pulse Resp BP BP 02/09/19 12:00 80 129/62 02/09/19 11:40 81 138/68 02/09/19 11:20 79 141/64 H 02/09/19 11:00 78 126/65 02/09/19 10:40 79 118/58 L 02/09/19 10:20 77 126/60 02/09/19 10:00 75 124/57 L 02/09/19 09:40 76 116/60 02/09/19 09:20 76 123/60 02/09/19 09:09 36.6 C 77 77 126/67 02/09/19 07:25 37.2 C 73 19 149/74 H 02/09/19 07:24 77 02/09/19 05:20 36.9 C 75 18 BP Pulse Ox 02/09/19 12:00 02/09/19 11:40 02/09/19 11:20 02/09/19 11:00 02/09/19 10:40 02/09/19 10:20 02/09/19 10:00 02/09/19 09:40 02/09/19 09:20 02/09/19 09:09 02/09/19 07:25 91 02/09/19 07:24 02/09/19 05:20 122/71 88 L Laboratory Results Laboratory Results - last 24 hr 02/08/19 02/08/19 02/09/19 16:38 20:14 07:05 Sodium 128 L Potassium 4.2 Chloride 91 L Carbon Dioxide 27 Anion Gap 10.0 BUN 33 H D Creatinine 6.01 H* D Est Cr Clr Drug Dosing 10.7 Est GFR ( Amer) 7.6 Est GFR (Non-Af Amer) 6.6 BUN/Creatinine Ratio 5.7 L Glucose 153 H POC Glucose 215 H 232 H Calcium 8.6 Phosphorus 3.9 Albumin 2.1 L 02/09/19 07:49 Sodium Potassium Chloride Carbon Dioxide Anion Gap BUN Creatinine Est Cr Clr Drug Dosing Est GFR ( Amer) Est GFR (Non-Af Amer) BUN/Creatinine Ratio Glucose POC Glucose 165 H Calcium Phosphorus Albumin PG Care Time/CCT Total # of Minutes Spent Total Time Spent with Patient: Total time spent is greater than 50% in coordination of care (as documented) at patient's floor/unit and/or counseling patient: (1) Anemia Anemia type: due to chronic kidney disease Chronic kidney disease stage: on chronic dialysis Qualified Code(s): N18.6 - End stage renal disease; D63.1 - Anemia in chronic kidney disease; Z99.2 - Dependence on renal dialysis
[2019-02-09] MEDS: METOPROLOL TARTRATE 100 MG TAB PO SCH ×2 (14:01→20:43)
[2019-02-09] MEDS: AMIODARONE 200 MG TAB PO SCH ×2 (14:01→20:34)
[2019-02-09] MEDS: FUROSEMIDE 40 MG TAB PO SCH ×2 (14:01→18:22)
[2019-02-09] MEDS ORDERED: BISACODYL 10 MG SUPP PR STA (17:13)
[2019-02-09] MEDS: ASPIRIN 81 MG ECTAB PO SCH (20:34)
[2019-02-09] MEDS: CLOTRIMAZOLE VAGINAL CR 7 APPLN/45 GM TUBE PV SCH (20:44)
[2019-02-09] MEDS: LATANOPROST 0.005% OP SOLN 2.5 ML BTL OPB SCH (20:45)
[2019-02-09] MEDS: OXYCODONE/ACETAMINOPHEN 5mg/325mg TAB PO PRN (20:56)
--- NOTE | 2019-02-09 22:15 | Hospitalist Progress Note ---
Date of Service February 09, 2019 Assessment & Plan (1) LLL pneumonia: Clinically improving/resolving. Day #5 zosyn. STOP zosyn after today. Then 2 days of levaquin then d/c abx. MRSA swab negative - vanco previously stopped. Blood cx's remain negative. O2 weaned off. Covering for gram negatives in light of frequent healthcare exposure. (2) Lumbar back pain: MRI l-spine with severe DJD T12-L1 with mod-severe spinal stenosis. No sensory level based on symptoms and no weakness of the arms/legs. Pain likely due to DJD. Treat pain as needed. (3) Metabolic encephalopathy: due to pneumonia - resolved. confirms MS is back to baseline. (4) Hyponatremia: Due to ESRD status. Stable. appreciate nephrology assistance. BMP am. (5) Hyperkalemia: 2nd to ESRD - resolved. (6) Congestive heart failure with LV diastolic dysfunction, NYHA class 3: Compensated. Cont BB, lasix, etc. O2 weaned off. (7) History of amputation below knee: RIGHT. no issues has prosthesis PT, OT evals pending (8) Paroxysmal atrial fibrillation: controlled w/ amiodarone and metoprolol not on chronic anticoagulation reason? NSR on tele (9) Diabetes mellitus type 2 with complications: pharmacy managing appreciate their assistance adjust insulins uncontrolled yesterday but improved today (10) Hypothyroidism: TSH 07/2018 wnl cont synthroid (11) ESRD on dialysis: appreciate nephrology assistance s/p HD today w/o incident (12) Hypertension: controlled (13) Morbid obesity with BMI of 40.0-44.9, adult: BMI now <40 s/p multiple HD sessions (14) Vaginitis: Likely candidal. Treat with clotramizole per vagina nightly x minimum 3 days. (15) DVT prophylaxis: heparin progressing nicely updated again today home tomorrow with home therapies treat constipation with dulcolax suppos x 1 Subjective eating well. transferring from bed to chair. saw the transfers - states she is close to baseline. more energy and better appetite today. denies pulmonary symptoms. tele - rate-controlled a.fib. Review of Systems Constitutional: no fever and no chills Respiratory: no cough and no dyspnea Cardiovascular: no chest pain Gastrointestinal: + constipation; no nausea and no vomiting Physical Exam Constitutional: + morbidly obese; no acute distress and no altered mental status ENMT: external ear and nose normal, oropharynx normal Respiratory: normal respiratory effort, lungs clear to auscultation (scant rales left base) no respiratory distress Auscultation: no wheezes Cardiovascular: Rate/Rhythm: regular rate and regular rhythm Heart Sounds: normal S1 and normal S2; no murmur Vessels: posterior tibial pulses present and dorsalis pedis pulses present; no JVD Extremities: no edema Gastrointestinal (Abdomen): normal bowel sounds, soft, nontender, no hepatosplenomegaly Percussion/Palpation: + hernia (umbilical - reducible) Skin: no rashes, warm and dry Psychiatric: Orientation: alert and oriented x 3 Results & Data Vital Signs (Past 12 Hours) Vital Signs Temp Pulse Pulse Pulse Resp BP BP 02/09/19 20:27 36.6 C 76 16 131/57 L 02/09/19 18:29 78 02/09/19 18:22 74 123/72 02/09/19 15:20 36.5 C 82 16 137/75 02/09/19 13:55 36.7 C 84 16 131/73 02/09/19 13:10 36.4 C L 78 78 139/64 139/64 02/09/19 13:00 81 123/57 L 02/09/19 12:40 81 115/59 L 02/09/19 12:20 77 120/58 L 02/09/19 12:00 80 129/62 02/09/19 11:40 81 138/68 02/09/19 11:20 79 141/64 H 02/09/19 11:00 78 126/65 02/09/19 10:40 79 118/58 L 02/09/19 10:20 77 126/60 Pulse Ox 02/09/19 20:27 94 02/09/19 18:29 02/09/19 18:22 02/09/19 15:20 93 02/09/19 13:55 94 02/09/19 13:10 02/09/19 13:00 02/09/19 12:40 02/09/19 12:20 02/09/19 12:00 02/09/19 11:40 02/09/19 11:20 02/09/19 11:00 02/09/19 10:40 02/09/19 10:20 Laboratory Results Laboratory Results - last 24 hr 02/09/19 02/09/19 02/09/19 07:05 07:49 13:46 Sodium 128 L Potassium 4.2 Chloride 91 L Carbon Dioxide 27 Anion Gap 10.0 BUN 33 H D Creatinine 6.01 H* D Est Cr Clr Drug Dosing 10.7 Est GFR ( Amer) 7.6 Est GFR (Non-Af Amer) 6.6 BUN/Creatinine Ratio 5.7 L Glucose 153 H POC Glucose 165 H 109 H Calcium 8.6 Phosphorus 3.9 Albumin 2.1 L 02/09/19 02/09/19 16:45 20:40 Sodium Potassium Chloride Carbon Dioxide Anion Gap BUN Creatinine Est Cr Clr Drug Dosing Est GFR ( Amer) Est GFR (Non-Af Amer) BUN/Creatinine Ratio Glucose POC Glucose 180 H 152 H Calcium Phosphorus Albumin PG Care Time/CCT Total # of Minutes Spent Total Time Spent with Patient: Total time spent is greater than 50% in coordination of care (as documented) at patient's floor/unit and/or counseling patient: (1) Hypothyroidism Hypothyroidism type: acquired Qualified Code(s): E03.9 - Hypothyroidism, unspecified (2) History of amputation below knee Laterality: right Qualified Code(s): Z89.511 - Acquired absence of right leg below knee (3) Vaginitis Chronicity: acute Qualified Code(s): N76.0 - Acute vaginitis (4) LLL pneumonia Pneumonia type: due to unspecified organism Qualified Code(s): J18.1 - Lobar pneumonia, unspecified organism (5) Hypertension Hypertension type: essential hypertension Qualified Code(s): I10 - Essential (primary) hypertension
[2019-02-10] MEDS: PIPERACILLIN/TAZOBACTAM 4.5 GM in DEXTROSE 5% 100 ML IV SCH (02:05)
[2019-02-10] MEDS: HEPARIN SOD 5,000 UNIT/0.5 ML VIAL SQ SCH ×2 (05:47→13:52)
[2019-02-10] MEDS: LEVOTHYROXINE SODIUM 50 MCG TABLET PO SCH (05:47)
[2019-02-10 07:03] LABS: Hematocrit (blood only) 31.2 % (37-47); Mean Corpuscular Hgb Conc 35.3 g/dL (32-36); Mean Corpuscular Volume 92.9 fL (80-100); Mean Platelet Volume 9.4 fL (7.4-10.4); Nucleated RBC # (auto) 0.05 K/uL (0-0); Nucleated RBC % (auto) 0.5 %; Platelet Count 189 K/uL (130-400); RDW Coefficient of Variation 16.2 % (11.5-14.5); RDW Standard Deviation 55.5 fL (36.4-46.3); Red Blood Count 3.36 M/uL (4.2-5.4)
[2019-02-10 07:25] LABS: Basophils # (auto) 0.13 K/uL (0-0.2); Basophils % (auto) 1.2 %; Eosinophils # (auto) 0.42 K/uL (0-0.5); Immature Granulocytes # (auto) 0.29 K/uL (0.00-0.02); Immature Granulocytes % (auto) 2.8 %; Lymphocytes # (auto) 1.53 K/uL (1.2-3.4); Lymphocytes % (auto) 14.6 %; Monocytes # (auto) 1.48 K/uL (0.11-0.59); Monocytes % (auto) 14.1 %; Neutrophils # (auto) 6.65 K/uL (1.4-6.5); Neutrophils % (auto) 63.3 %
[2019-02-10 07:39] LABS: BUN Creatinine Ratio 4.8 (10-20); Calcium 8.9 mg/dl (8.5-10.1); Creatinine Clr Calc Pharmacy 14.9 ml/min; Est GFR (African American) 11.5; Est GFR (Non-African American) 9.9; Potassium 3.7 mmol/L (3.5-5.1)
[2019-02-10] MEDS: INSULIN ASPART 100 UNITS/ML 3 ML PEN SC SCH ×2 (08:33→12:36)
[2019-02-10] MEDS: CALCIUM ACETATE 667 MG CAP PO SCH ×2 (08:38→12:11)
[2019-02-10] MEDS: AMIODARONE 200 MG TAB PO SCH (08:39)
[2019-02-10] MEDS: INSULIN GLARGINE SOLOSTAR 100 UNITS/ML 3 ML PEN SC SCH (08:39)
[2019-02-10] MEDS: FUROSEMIDE 40 MG TAB PO SCH (08:40)
[2019-02-10] MEDS: METOPROLOL TARTRATE 100 MG TAB PO SCH (08:41)
[2019-02-10] MEDS: ATORVASTATIN 40 MG TAB PO SCH (08:41)
[2019-02-10] MEDS: NYSTATIN POWDER 15GM BTL EXT SCH ×2 (08:47→13:52)
[2019-02-10] MEDS: CLOPIDOGREL BISULFATE 75 MG TAB PO SCH (08:48)
[2019-02-10] MEDS: OMEGA-3 (PURIFIED FISH OIL) 1 GM CAP PO SCH ×2 (08:48→13:52)
[2019-02-10] MEDS: NEPHROCAPS PO SCH (08:48)
[2019-02-10] MEDS: PREGABALIN 25 MG CAP PO SCH (08:51)
--- NOTE | 2019-02-10 09:55 | Nephrology Progress Note ---
Date of Service February 10, 2019 Assessment & Plan (1) ESRD on dialysis: 68-year-old female with end-stage renal disease secondary to hypertension and diabetic nephropathy, on hemodialysis Wednesday, , Wednesday. Admitted with generalized weakness, F/C, and volume overload. On admission troponin was just mildly elevated but she did not have any symptoms suggestive of acute coronary event. Initial CXR with congestion but repeat CXR showed LLL pneumonia and started on antibiotic 02/06/19 Electrolytes are acceptable. Volume status appropriate. Plan HD tomorrow per TTS schedule. Continue lasix to 40 mg BID. Continue on phosphate binders and renal caps daily. JOHN 4000 u provided with HD yesterday for anemia. (2) Diabetes mellitus type 2 with complications: (3) Anemia: (4) Secondary hyperparathyroidism (of renal origin): Subjective No acute events overnight. Tolerated HD well. No complications with HD. Net UF 2.5 L. Review of Systems Review of Systems: All systems reviewed & are unremarkable except as noted in HPI & below Physical Exam Constitutional: well developed and + obese; no acute distress Eyes: no scleral abnormality and no corneal abnormality ENMT: Ears: no hearing impairment Mouth: no oral mucosal abnormality Neck: normal visual inspection; + trachea not midline Respiratory: normal respiratory effort Auscultation: lungs clear to auscultation bilaterally Cardiovascular: Rate/Rhythm: regular rate Heart Sounds: normal S1, normal S2 and + murmur Extremities: + AV fistula Gastrointestinal (Abdomen): Percussion/Palpation: abdomen soft; abdomen nontender Musculoskeletal: Extremities: no cyanosis and no clubbing Skin: normal turgor; no lesions Neurologic: Motor/Sensory: no tremor and no asterixis Psychiatric: Orientation: alert and oriented x 3 Results & Data Vital Signs (Past 12 Hours) Vital Signs Temp Pulse Pulse Pulse Resp BP Pulse Ox 02/10/19 07:17 36.7 C 79 18 153/78 H 90 02/10/19 04:00 36.2 C L 75 20 124/43 L 95 02/10/19 01:02 72 02/09/19 23:21 36.6 C 76 18 145/75 H 94 Laboratory Results Laboratory Results - last 24 hr 02/09/19 02/09/19 02/09/19 13:46 16:45 20:40 WBC RBC Hgb Hct MCV MCH MCHC RDW Std Deviation RDW Coeff of Veronica Plt Count MPV Immature Gran % (Auto) Neut % (Auto) Lymph % (Auto) Maries % (Auto) Eos % (Auto) Baso % (Auto) Immature Gran # (Auto) Neut # (Auto) Lymph # (Auto) Maries # (Auto) Eos # (Auto) Baso # (Auto) Absolute Nucleated RBC Nucleated RBC % (auto) Sodium Potassium Chloride Carbon Dioxide Anion Gap BUN Creatinine Est Cr Clr Drug Dosing Est GFR ( Amer) Est GFR (Non-Af Amer) BUN/Creatinine Ratio Glucose POC Glucose 109 H 180 H 152 H Calcium 02/10/19 02/10/19 02/10/19 06:37 06:37 07:40 WBC 10.50 RBC 3.36 L Hgb 11.0 L Hct 31.2 L MCV 92.9 MCH 32.7 MCHC 35.3 RDW Std Deviation 55.5 H RDW Coeff of Veronica 16.2 H Plt Count 189 MPV 9.4 Immature Gran % (Auto) 2.8 Neut % (Auto) 63.3 Lymph % (Auto) 14.6 Maries % (Auto) 14.1 Eos % (Auto) 4.0 Baso % (Auto) 1.2 Immature Gran # (Auto) 0.29 H Neut # (Auto) 6.65 H Lymph # (Auto) 1.53 Maries # (Auto) 1.48 H Eos # (Auto) 0.42 Baso # (Auto) 0.13 Absolute Nucleated RBC 0.05 H Nucleated RBC % (auto) 0.5 Sodium 131 L Potassium 3.7 Chloride 93 L Carbon Dioxide 27 Anion Gap 11.0 BUN 20 H Creatinine 4.28 H D Est Cr Clr Drug Dosing 14.9 Est GFR ( Amer) 11.5 Est GFR (Non-Af Amer) 9.9 BUN/Creatinine Ratio 4.8 L Glucose 119 H POC Glucose 111 H Calcium 8.9 PG Care Time/CCT Total # of Minutes Spent Total Time Spent with Patient: Total time spent is greater than 50% in coor dination of care (as documented) at patient's floor/unit and/or counseling patient: (1) Anemia Anemia type: due to chronic kidney disease Chronic kidney disease stage: on chronic dialysis Qualified Code(s): N18.6 - End stage renal disease; D63.1 - Anemia in chronic kidney disease; Z99.2 - Dependence on renal dialysis
[2019-02-10] MEDS: TRAMADOL HCL 50 MG TABLET PO PRN (10:38)
[2019-02-10] MEDS ORDERED: levoFLOXacin 750 MG TAB PO ONE (11:00)
--- NOTE | 2019-02-11 16:55 | Discharge Summary ---
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 Patient reports that for the past several days she is feeling very weak and that this morning when she went for hemodialysis she started to have palpitations and she did not feel herself. Patient is next next to for her and states that patient is more fatigued recently and that she is avoiding to do anything and that she is spending lots of time resting in bed. Patient denies fever chills chest pain shortness of breath abdominal pain frequency urgency and or any other symptoms such as nausea or vomiting. But she reports that she gains some weight weight and she feels fatigued. Patient labs were reviewed and she has white blood cell count of 11.6, hemoglobin 11.4 hematocrit 33.7, platelets 146, sodium 130 potassium 5.7 chloride of 91 BUN of 21 creatinine of 5.41 BUN/creatinine ratio of 3.8, blood glucose of 291, troponin [place] 0.[place] [address]. Chest x-rays shows mild cardiomegaly with mild pulmonary vascular congestion. CT head shows no acute intracranial abnormality moderate right mastoid effusion with mild paranasal sinuses. The case was discussed and patient is accepted to [facility] telemetry for further evaluation and treatment of acute volume overload. EKG shows sinus tachycardia with right bundle branch block. Rhythm of [address] segment elevation or depression. Principal Diagnosis LLL pneumonia Discharge Exam Constitutional + morbidly obese; no acute distress and no altered mental status ENMT external ear and nose normal, oropharynx normal Respiratory normal respiratory effort, lungs clear to auscultation (scant rales left base) no respiratory distress Auscultation: no wheezes Cardiovascular Rate/Rhythm: regular rate and regular rhythm Heart Sounds: normal S1 and normal S2; no murmur Vessels: posterior tibial pulses present and dorsalis pedis pulses present; no JVD Extremities: no edema Gastrointestinal (Abdomen) normal bowel sounds, soft, nontender, no hepatosplenomegaly Percussion/Palpation: + hernia (umbilical - reducible) Musculoskeletal right BKA Skin no rashes, warm and dry Neurologic strength 5/5 x 4 extremities Psychiatric Orientation: alert and oriented x 3 Discharge Data Allergies Allergy/AdvReac Type Severity Reaction Status Date / Time No Known Allergies Allergy Verified 02/03/19 15:05 Consultations [facility] PT, OT Ordered Studies 1. CT abd pelvis - IMPRESSION: 1. No acute process within the abdomen or pelvis on unenhanced exam. 2. Several bowel containing ventral hernias without obstruction. 3. Stones versus sludge within the gallbladder. Mild gallbladder distention. No pericholecystic infiltration. No convincing CT evidence for acute cholecystitis although a right upper quadrant ultrasound could be obtained if right upper quadrant pain. 4. Moderate to marked bilateral renal cortical thinning. No hydronephrosis. 2. CT head/brain x 2 - IMPRESSION: 1. There is no hemorrhage, mass effect, or evidence of acute territorial ischemia by CT criteria. 2. Right mastoid effusion. 3. US gallbladder - no gallstones. 4. MRI lumbar spine - IMPRESSION: 1. Multiple disc herniations within the lumbar spine and T12-L1 levels as described above. The largest disc herniation at T12-L1 results in moderate to severe central canal narrowing. 2. No fracture or subluxation. 3. Mild dextroscoliosis. 4. Suboptimal evaluation for an epidural or paraspinal assess due to the lack of intravenous contrast. However, no definite fluid collections identified to s uggest an abscess. 5. echocardiogram - normal LV function; limited study due to body habitus. Hospital Course (1) LLL pneumonia: Several hours following admission the patient developed a low-grade fever. It was uncertain what the source of the fever was. She continued with fever over the next 48 hours. Finally, on 02/05/19, a chest x-ray demonstrated a LLL infiltrate. At that time broad-spectrum IV antibiotics were initiated. She had an O2 requirement and thus all findings pointed towards the pneumonia as the source for her fever. She remained on IV zosyn for 5 days to cover for the possibility of a gram negative pneumonia. MRSA swab was negative and thus coverage for such was deferred. Leukocytosis, appetite, fatigue, and overall constitution improved with treatment of the suspected LLL pneumonia. Blood cultures remained negative while here. On day of discharge she received 750mg of PO levaquin which will complete her 7- day course of treatment. Of note - CT abd/pelvis, RUQ u/s, and lumbar spine MRI did NOT reveal an alternative source of infection. (2) Lumbar back pain: MRI l-spine with severe DJD T12-L1 with mod-severe spinal stenosis. No sensory level based on symptoms and no weakness of the legs on exam. Pain was likely due to DJD. Her pain gradually subsided while hospitalized. She was agreeable to home PT/OT to help with deconditioning. She received PT/OT services while here. (3) Metabolic encephalopathy: due to pneumonia - resolved. confirmed mental status was back to baseline. (4) Hyponatremia: Chronic - Due to ESRD status. Stable. appreciate nephrology assistance. Discharge Na level was 131. (5) Hyperkalemia: 2nd to ESRD - resolved with serial HD treatments. (6) ESRD on dialysis: [facility] assisted with HD services. she had a net 7kg weight loss while here with serial HD sessions. thus she had significant volume overload leading up to this admission. (7) Congestive heart failure with LV diastolic dysfunction, NYHA class 3: Compensated at time of discharge. Cont BB, lasix, etc. O2 was weaned off before discharge home. (8) History of amputation below knee: RIGHT. no issues has prosthesis PT, OT cleared patient for home will have home PT/OT (9) Paroxysmal atrial fibrillation: controlled w/ amiodarone and metoprolol not on chronic anticoagulation reason? NSR on telemetry the entire stay (10) Diabetes mellitus type 2 with complications: pharmacy provided glycemic recommendations/assistance control was adequate most of the stay (11) Hypothyroidism: TSH 07/2018 wnl cont synthroid (12) Hypertension: controlled during the hospital stay (13) Morbid obesity with BMI of 40.0-44.9, adult: BMI now <40 s/p multiple HD sessions (14) Vaginitis: Likely candidal. Treated with clotramizole per vagina nightly several times with resolved symptoms. (15) Volume overload: 2nd to ESRD - see "ESRD" above resolved Total Time Total Time Spent Total Time Spent (In Minutes): 40 Total Time Includes: Examination of the Patient, Discharge Planning and Medication Reconciliation Discharge Plan Discharge Items Patient Disposition: Home - Home Health Services Reason For Visit: weakness, confusion, fever Discharge Diagnosis: 1. left-sided pneumonia - resolving. 2. fluid retention - resolved. 3. episodes of confusion/fatigue - resolved. Discharge Goals: Diagnostic testing and Therapeutic intervention Activity: Resume your previous activity Non-emergency contact: Primary Care Provider and [employer] C[employer] Clerk Call non-emergency contact if: you have any medication questions, your symptoms worsen, your pain is not controlled, your pain is worsening and your temperature is above 100.5 Follow-up/Referrals: Phill Ramirez III, CRNP [Primary Care Provider] - 02/15/19 9:20 am (An appt. has been scheduled for you with RADHA Abel on 02/15 at 9:20am.) Diet: Carb Consistent or DM2 and Dialysis Renal Fluids: 1500ml (6 cups) Addtl Provider Instructions: You were treated for a left lower lobe pneumonia with IV and oral antibiotics during your stay. Your fevers resolved, appetite slowly improved, and energy returned. Your episodes of extreme fatigue and mild confusion resolved with treatment of the pneumonia. You have completed your entire course of antibiotics while hospitalized. You complained of your back while hospitalized. MRI showed a significant amount of arthritis (degeneration) of the lumbar spine. The worst area was at T12 to L1. If you ever develop numbness from the waist down into the legs OR significant weakness of the legs please let your doctors know right away. Follow up - 1. report for your regular dialysis session tomorrow on Wednesday 2. see your family doctor next week as scheduled 3. have home PT and home OT - we will arrange for you Return to [facility] if - * you have fevers over 100.5 degrees * you have episodes of extreme weakness, fatigue, or confusion * you have shortness of breath or chest pain * any other concerns Prescriptions: New nystatin [Nystop] 100,000 unit/gram Powder 1 applic EXT TID Qty: 45 RF: 0 Continued metoprolol tartrate 100 mg tablet 100 mg PO BID Qty: 180 RF: 1 Triphrocaps 1 mg capsule 1 cap PO QAM RF: 0 tramadol 50 mg tablet 50 mg PO DAILY PRN (Reason: Pain) RF: 0 pregabalin 25 mg capsule 25 mg PO BID Qty: 60 RF: 2 oxycodone-acetaminophen [Percocet] 5-325 mg tablet 1 tab PO HS PRN (Reason: pain) Qty: 30 RF: 0 furosemide 40 mg Tablet 40 mg PO BID RF: 0 latanoprost 0.005 % drops 1 drp OPB HS RF: 0 atorvastatin 40 mg Tablet 40 mg PO QAM RF: 0 amiodarone 200 mg tablet 200 mg PO BID RF: 0 levothyroxine 50 mcg tablet 50 mcg PO QAM RF: 0 calcium acetate 667 mg capsule 667 mg PO TIDM RF: 0 omega-3 acid ethyl esters 1 gram capsule 1 g PO TID RF: 0 aspirin [Aspir-81] 81 mg Tablet,Delayed Release (Dr/Ec) 81 mg PO HS RF: 0 cholecalciferol (vitamin D3) 50,000 unit Tablet 50,000 units PO WK RF: 0 insulin lispro [Humalog KwikPen Insulin] 100 unit/mL Insulin Pen 10 - 20 unit SUBCUT TIDM RF: 0 Lantus Solostar U-100 Insulin 100 unit/mL (3 mL) Insulin Pen 66 unit SUBCUT HS RF: 0 Lantus Solostar U-100 Insulin 100 unit/mL (3 mL) Insulin Pen 36 unit SUBCUT QAM RF: 0 clopidogrel 75 mg tablet 75 mg PO QAM RF: 0 lidocaine-prilocaine 2.5-2.5 % cream 1 applic topical UD RF: 0 Stand-Alone Forms: [facility] Discharge Orders: Discharge Order (Routine); Ordered 02/10/19 Ordered By: Mitch Yeung Admission Data Admit Date/Time: 02/03/19 17:36 Attending Provider: Mitch Yeung Admit Provider: Celeste Cavanaugh Primary Care Provider: Phill Ramirez III Other Providers: Annette Quiles ; Willard Nath Service: Telemetry Medical Other Interventions: Discharge Summary Assessment (RN) Last Done: 02/10/19 13:56 Pending Studies at Discharge: No DC Date/Time DO NOT enter until pt leaves facility: 02/10/19 14:46
[2019-02-12] MEDS ORDERED: levoFLOXacin 500 MG TAB PO SCH (11:00)
== END 2019-02-10 14:46 | disposition home health service (06) | DRG 193 ==
LOC: ED 12:53 → 2N 17:36 → SUATTDRO 17:36 → 2N 18:23

== ENCOUNTER 2019-05-23 14:50 | Inpatient (IN) ==
[2019-05-23] MEDS ORDERED: ONDANSETRON INJ 2 MG/ML 2 ML VIAL IV STA (15:17)
--- NOTE | 2019-05-23 15:25 | Emergency Department Note ---
History of Present Illness General Chief complaint: Shortness of Breath/Dyspnea Stated complaint: POSSIBLE PNEUMONIA, SOB, COLD Time Seen by Provider: 05/23/19 15:02 History of Present Illness Maximum Pain Intensity: 0 This is a 69-year-old female with a complex past medical history to include that of end-stage renal disease currently on dialysis 3 times a week, last of which was yesterday, and scheduled for tomorrow that presents with complaints of "possible pneumonia, shortness of breath, cold". states that this past she came back from dialysis and developed a cough. She has had sinus congestion and drainage. The cough is been persistent. He notes that today she informed him that she should go to the emergency department and on the way here she became confused. He states this is typical when she runs a fever and is ill. Pain is currently a 0/10. She feels nauseous. Home Medications Home Medications Medication Instructions Recorded Confirmed Type calcium acetate 667 mg PO TIDM 05/14/18 05/23/19 History furosemide 40 mg PO BID 05/14/18 05/23/19 History latanoprost 1 drp OPB HS 05/14/18 05/23/19 History levothyroxine 50 mcg PO QAM 05/14/18 05/23/19 History omega-3 acid ethyl esters 1 g PO DAILY 05/14/18 05/23/19 History aspirin [Aspir-81] 81 mg PO HS 07/23/18 05/23/19 History cholecalciferol (vitamin D3) 50,000 units PO WK 07/23/18 05/23/19 History metoprolol tartrate 100 mg tablet 100 mg PO BID #180 tab 12/30/18 05/23/19 Rx clopidogrel 75 mg PO QAM 01/16/19 05/23/19 History pregabalin 25 mg capsule 25 mg PO BID #60 cap 04/24/19 05/23/19 Rx insulin glargine 100 unit/mL (3 See Rx Instructions SUBCUT 05/15/19 05/23/19 Rx mL) subcutaneous pen .COMPLEX #30 ml amiodarone 200 mg PO BID 05/23/19 05/23/19 History oxycodone-acetaminophen [Percocet] 1 tab PO DAILY PRN 05/23/19 05/23/19 History Allergies Allergy/AdvReac Type Severity Reaction Status Date / Time No Known Allergies Allergy Verified 05/23/19 16:10 Past Med/Surg History Medical History Anemia (Chronic 05/24/13) AVNRT (AV alondra re-entry tachycardia) Chronic diastolic CHF (congestive heart failure) Colon cancer screening Diabetes mellitus (Resolved) Diabetes mellitus type 2 with complications (Chronic) Diabetic nephropathy (Chronic) Diabetic peripheral neuropathy associated with type 2 diabetes mellitus (Resolved) Dialysis patient (Chronic) ESRD on dialysis (Chronic) dialysis--tue/thur/sat GI (gastrointestinal bleed) (Resolved 05/24/13) Gout History of colon cancer (Chronic) 2008--sx, chemo History of diabetic ulcer of foot (Chronic) Hyperlipidemia (Chronic) Hypertension (Chronic) Hypothyroidism (Chronic) Hypoxia (Resolved) Left posterior fascicular block (LPFB) (Chronic) Obesity Palpitations (Resolved) Paroxysmal atrial fibrillation (Chronic) on plavix follows with Kip Fletcher Paroxysmal supraventricular tachycardia (Chronic) PVD (peripheral vascular disease) (Chronic) RBBB (right bundle branch block) (Chronic) SIRS (systemic inflammatory response syndrome) (Resolved) Sleep apnea (Chronic) does not use CPAP Surgical History Arteriovenous fistula left arm 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) History of bilateral cataract extraction History of bladder surgery per pt half of bladder removed during colectomy History of colectomy 4 ft removed History of colonoscopy History of colostomy History of colostomy reversal History of tonsillectomy and adenoidectomy History of total hysterectomy with bilateral salpingo-oophorectomy (BSO) History of wisdom tooth extraction Hx of right BKA (Resolved) Family History Mother Breast cancer Grandfather Myocardial infarction Father Family history of diabetes mellitus Other No family history of adverse response to anesthesia Social History Preferred Language: Brazilian Communication Ability: Effective Visual Impairment: No Limitations Rehab Aid Required: No Beliefs That Will Affect Care: None marital status: Current Living Situation: Spouse current occupational status: retired Feels Safe at Home: Yes Smoking Status: Former smoker Second Hand Exposure: No ; Hx Alcohol Use: No Hx Substance Use: No Review of Systems A total of 10 systems reviewed and were otherwise negative Physical Exam Vital Signs Vital Signs - 24 hr 05/23/19 14:57 05/23/19 15:09 05/23/19 15:40 Temperature 38.3 C H Temperature Source Oral Pulse Rate 70 106 H 99 H Pulse Rate [Left Finger] Pulse Rate from SpO2 Sensor 97 H Respiratory Rate 22 18 25 H Respiratory Effort / Characteristics Blood Pressure 196/124 H 140/106 H Blood Pressure Mean 148 129 Blood Pressure Position Sitting Pulse Oximetry 97 86 L Oxygen Delivery Method Room Air Oxygen Flow Rate Fraction of Inspired Oxygen Sepsis Recent Fever Within 48 Hours Yes Sepsis New/Unexplained Change in Mental Status No Sepsis Action Taken by Nursing No Action Required 05/23/19 15:44 05/23/19 15:45 05/23/19 16:20 Temperature Temperature Source Pulse Rate 102 H 103 H 101 H Pulse Rate [Left Finger] Pulse Rate from SpO2 Sensor 106 H 103 H 97 H Respiratory Rate 23 31 H 24 Respiratory Effort / Characteristics Blood Pressure 145/113 H Blood Pressure Mean 117 Blood Pressure Position Pulse Oximetry 97 97 96 Oxygen Delivery Method Oxygen Flow Rate 3 3 Fraction of Inspired Oxygen 3 Sepsis Recent Fever Within 48 Hours Sepsis New/Unexplained Change in Mental Status Sepsis Action Taken by Nursing 05/23/19 16:34 05/23/19 16:40 05/23/19 16:50 Temperature Temperature Source Pulse Rate 96 H 98 H Pulse Rate [Left Finger] 101 H Pulse Rate from SpO2 Sensor 100 H 100 H Respiratory Rate 18 30 H 23 Respiratory Effort / Characteristics Spontaneous Blood Pressure Blood Pressure Mean Blood Pressure Position Pulse Oximetry 96 96 96 Oxygen Delivery Method Oxymask Oxygen Flow Rate 3 Fraction of Inspired Oxygen Sepsis Recent Fever Within 48 Hours Sepsis New/Unexplained Change in Mental Status Sepsis Action Taken by Nursing 05/23/19 17:00 05/23/19 17:01 05/23/19 17:26 Temperature 37.8 C H Temperature Source Oral Pulse Rate 97 H 104 H 94 H Pulse Rate [Left Finger] Pulse Rate from SpO2 Sensor 102 H 90 98 H Respiratory Rate 29 H 23 18 Respiratory Effort / Characteristics Blood Pressure 84/61 L 156/57 H Blood Pressure Mean 68 78 Blood Pressure Position Pulse Oximetry 97 97 97 Oxygen Delivery Method Oxygen Flow Rate Fraction of Inspired Oxygen Sepsis Recent Fever Within 48 Hours Sepsis New/Unexplained Change in Mental Status Sepsis Action Taken by Nursing 05/23/19 17:31 05/23/19 17:43 Temperature 37.3 C Temperature Source Oral Pulse Rate 96 H Pulse Rate [Left Finger] Pulse Rate from SpO2 Sensor 98 H Respiratory Rate 25 H Respiratory Effort / Characteristics Blood Pressure 123/63 Blood Pressure Mean 103 Blood Pressure Position Pulse Oximetry 91 Oxygen Delivery Method Oxygen Flow Rate Fraction of Inspired Oxygen Sepsis Recent Fever Within 48 Hours Sepsis New/Unexplained Change in Mental Status Sepsis Action Taken by Nursing VITAL SIGNS - Vital signs and nursing notes were reviewed. Hypertensive, febrile, otherwise stable. GENERAL -69-year-old female appearing her stated age who is in no acute distress but is actively dry heaving, is wearing a mask, and is displaying some increased work of breathing. She does can indicate well. SKIN - Without rashes. No meningeal or petechial rash. HEAD - NC/AT. EYES - PERRL with EOMI bilaterally. Sclera anicteric. EARS - No deformities of external structures noted on gross examination bilaterally. NOSE - Midline and without cyanosis. No epistaxis or purulent drainage noted. MOUTH/OROPHARYNX - Without perioral cyanosis. NECK - Neck with FROM. No nuchal rigidity. LUNGS - Chest wall symmetric without accessory muscle use, intercostals retractions, or central cyanosis. Normal vesicular breath sounds CTA B/L. No wheezes, rales, or rhonchi appreciated. CARDIAC - RRR with S1/S2. No murmur, rubs, or gallops appreciated. ABDOMEN - Abdominal contour normal without tenderness on exam. Bowel sounds normoactive all 4 quadrants per EXTREMITIES - No clubbing or peripheral cyanosis. +5/5 strength noted in UE/LE bilaterally. NEUROLOGIC - Cranial nerves II through XII grossly intact. PSYCH - A&O, and cooperates fully with examiner. Pt is very pleasant and interacts well with examiner. Course Administered Medications Amiodarone HCl (Cordarone) 200 mg PO BID [facility] Stop: 06/22/19 20:59 Last Admin: 05/23/19 22:43 Dose: 200 mg Documented by: [id number] Aspirin (Ecotrin Ectab) 81 mg PO HS ALEX Stop: 06/22/19 20:59 Last Admin: 05/23/19 22:43 Dose: 81 mg Documented by: [id number] Insulin Human Regular 250 (units/ Sodium Chloride) 250 mls @ 4.2 mls/hr IV .Q24H ALEX; Protocol Stop: 06/22/19 21:44 Last Admin: 05/23/19 22:47 Dose: 4.2 units/hr, 4.2 mls/hr Documented by: [id number] Cosigned by: [id number] Furosemide 20 mg/ Syringe 2 mls @ 4 mls/min IV [id number] ALEX Stop: 06/22/19 21:59 Last Admin: 05/23/19 22:44 Dose: 4 mls/min Documented by: [id number] Latanoprost (Xalatan Oph) 1 drops OPB HS ALEX Stop: 06/22/19 20:59 Last Admin: 05/23/19 22:44 Dose: 1 drops Documented by: [id number] Metoprolol Tartrate (Lopressor) 100 mg PO BID ALEX Stop: 06/22/19 20:59 Last Admin: 05/23/19 22:41 Dose: 100 mg Documented by: [id number] Pregabalin (Lyrica) 25 mg PO BID ALEX Stop: 06/22/19 20:59 Last Admin: 05/23/19 22:47 Dose: 25 mg Documented by: [id number] Discontinued Medications Acetaminophen (Ofirmev) Confirm Administered Dose 1,000 mg IV .STK-MED ONE Stop: 05/23/19 16:31 Last Admin: 05/23/19 16:39 Dose: 1,000 mg Documented by: [id number] Acetaminophen (Ofirmev) Confirm Administered Dose 1,000 mg IV .STK-MED ONE Stop: 05/23/19 16:35 Last Admin: 05/23/19 17:14 Dose: Not Given Documented by: [id number] Albuterol (Duoneb) 3 ml NEB NOW STA Stop: 05/23/19 15:50 Last Admin: 05/23/19 16:32 Dose: 3 ml Documented by: [id number] Sodium Chloride (Nss) 500 mls @ 125 mls/hr IV .Q4H ALEX Stop: 06/22/19 15:14 Last Admin: 05/23/19 21:05 Dose: Not Given Documented by: [id number] Infusion: 05/23/19 21:04 Dose: 0 mls/hr Documented by: [id number] Admin: 05/23/19 16:14 Dose: 125 mls/hr Documented by: [id number] Piperacillin Sod/Tazobactam Sod (Zosyn) 4.5 gm in 120 mls @ 240 mls/hr IV NOW ONE Stop: 05/23/19 16:24 Last Infusion: 05/23/19 16:57 Dose: 0 mls/hr Documented by: [id number] Admin: 05/23/19 16:14 Dose: 240 mls/hr Documented by: [id number] Vancomycin HCl 1,500 mg/ (Sodium Chloride) 530 mls @ 200 mls/hr IV NOW STA Stop: 05/23/19 18:33 Last Infusion: 05/23/19 19:28 Dose: 0 mls/hr Documented by: [id number] Admin: 05/23/19 16:20 Dose: 200 mls/hr Documented by: [id number] Acetaminophen (Ofirmev) 65 mls @ 200 mls/hr IV NOW ONE; Protocol Stop: 05/23/19 16:43 Last Admin: 05/23/19 16:38 Dose: Not Given Documented by: [id number] Insulin Human Regular (Novolin R Bolus From Bag) 4 units IV ONE ONE Stop: 05/23/19 21:46 Last Admin: 05/23/19 22:48 Dose: 4 units Documented by: [id number] Cosigned by: [id number] Ondansetron HCl (Zofran) 4 mg IV NOW STA Stop: 05/23/19 15:18 Last Admin: 05/23/19 15:25 Dose: 4 mg Documented by: [id number] Medical Decision Making Laboratory Data Result diagrams: 05/23/19 15:24 05/23/19 15:24 Lab Results 05/23/19 05/23/19 05/23/19 Range/Units 15:10 15:24 15:24 WBC 12.24 H (4.8-10.8) K/uL RBC 3.53 L (4.2-5.4) M/uL Hgb 11.5 L (12.0-16.0) g/dL Hct 34.4 L (37-47) % MCV 97.5 (80-100) fL MCH 32.6 (25-34) pg MCHC 33.4 (32-36) g/dL RDW Std Deviation 57.5 H (36.4-46.3) fL RDW Coeff of Veronica 16.1 H (11.5-14.5) % Plt Count 156 (130-400) K/uL MPV 9.6 (7.4-10.4) fL Immature Gran % (Auto) 0.3 % Neut % (Auto) 80.2 % Lymph % (Auto) 11.9 % [place] % (Auto) 6.3 % Eos % (Auto) 1.1 % Baso % (Auto) 0.2 % Immature Gran # (Auto) 0.04 H (0.00-0.02) K/uL Neut # (Auto) 9.80 H (1.4-6.5) K/uL Lymph # (Auto) 1.46 (1.2-3.4) K/uL [place] # (Auto) 0.77 H (0.11-0.59) K/uL Eos # (Auto) 0.14 (0-0.5) K/uL Baso # (Auto) 0.03 (0-0.2) K/uL PT 11.9 (9.0-12.0) Seconds INR 1.2 H (0.9-1.1) APTT 28.7 (21.0-31.0) Seconds PTT Ratio 1.1 VBG pH (7.36-7.41) VBG pCO2 (38-50) mmHg VBG pO2 mmHg VBG HCO3 mmol/L VBG O2 Saturation % VBG Base Excess mEq/L Barometric Pressure mm/Hg Sodium (136-145) mmol/L Potassium (3.5-5.1) mmol/L Chloride (98-107) mmol/L Carbon Dioxide (21-32) mmol/L Anion Gap (3-11) BUN (7-18) mg/dl Creatinine (0.6-1.2) mg/dl Est Cr Clr Drug Dosing ml/min Est GFR ( Amer) Est GFR (Non-Af Amer) BUN/Creatinine Ratio (10-20) Glucose (70-99) mg/dl Lactate (0.4-2.0) mmol/L Calcium (8.5-10.1) mg/dl Total Bilirubin (0.2-1) mg/dl AST (15-37) U/L ALT (12-78) U/L Alkaline Phosphatase (45-117) U/L Troponin I (0-0.045) ng/ml Total Protein (6.4-8.2) gm/dl Albumin (3.4-5.0) gm/dl Globulin (2.5-4.0) gm/dl Albumin/Globulin Ratio (0.9-2) Beta-Hydroxybutyric Acd (0.2-2.81) mg/dl Procalcitonin (0-0.5) ng/ml Influenza Type A Ag Neg for Influ A (Neg) Influenza Type B Ag Neg for Influ B (Neg) 05/23/19 05/23/19 05/23/19 Range/Units 15:24 15:24 15:24 WBC (4.8-10.8) K/uL RBC (4.2-5.4) M/uL Hgb (12.0-16.0) g/dL Hct (37-47) % MCV (80-100) fL MCH (25-34) pg MCHC (32-36) g/dL RDW Std Deviation (36.4-46.3) fL RDW Coeff of Veronica (11.5-14.5) % Plt Count (130-400) K/uL MPV (7.4-10.4) fL Immature Gran % (Auto) % Neut % (Auto) % Lymph % (Auto) % [place] % (Auto) % Eos % (Auto) % Baso % (Auto) % Immature Gran # (Auto) (0.00-0.02) K/uL Neut # (Auto) (1.4-6.5) K/uL Lymph # (Auto) (1.2-3.4) K/uL [place] # (Auto) (0.11-0.59) K/uL Eos # (Auto) (0-0.5) K/uL Baso # (Auto) (0-0.2) K/uL PT (9.0-12.0) Seconds INR (0.9-1.1) APTT (21.0-31.0) Seconds PTT Ratio VBG pH (7.36-7.41) VBG pCO2 (38-50) mmHg VBG pO2 mmHg VBG HCO3 mmol/L VBG O2 Saturation % VBG Base Excess mEq/L Barometric Pressure mm/Hg Sodium 129 L (136-145) mmol/L Potassium 4.5 (3.5-5.1) mmol/L Chloride 90 L (98-107) mmol/L Carbon Dioxide 27 (21-32) mmol/L Anion Gap 12.0 H (3-11) BUN 22 H (7-18) mg/dl Creatinine 5.38 H* (0.6-1.2) mg/dl Est Cr Clr Drug Dosing 11.9 ml/min Est GFR ( Amer) 8.6 Est GFR (Non-Af Amer) 7.5 BUN/Creatinine Ratio 4.0 L (10-20) Glucose 370 H* (70-99) mg/dl Lactate 3.4 H* (0.4-2.0) mmol/L Calcium 9.2 (8.5-10.1) mg/dl Total Bilirubin 0.5 (0.2-1) mg/dl AST 30 (15-37) U/L ALT 28 (12-78) U/L Alkaline Phosphatase 136 H (45-117) U/L Troponin I 0.236 H* (0-0.045) ng/ml Total Protein 8.5 H (6.4-8.2) gm/dl Albumin 3.3 L (3.4-5.0) gm/dl Globulin 5.2 H (2.5-4.0) gm/dl Albumin/Globulin Ratio 0.6 L (0.9-2) Beta-Hydroxybutyric Acd 1.37 (0.2-2.81) mg/dl Procalcitonin 1.55 H (0-0.5) ng/ml Influenza Type A Ag (Neg) Influenza Type B Ag (Neg) 05/23/19 05/23/19 Range/Units 15:24 17:08 WBC (4.8-10.8) K/uL RBC (4.2-5.4) M/uL Hgb (12.0-16.0) g/dL Hct (37-47) % MCV (80-100) fL MCH (25-34) pg MCHC (32-36) g/dL RDW Std Deviation (36.4-46.3) fL RDW Coeff of Veronica (11.5-14.5) % Plt Count (130-400) K/uL MPV (7.4-10.4) fL Immature Gran % (Auto) % Neut % (Auto) % Lymph % (Auto) % [place] % (Auto) % Eos % (Auto) % Baso % (Auto) % Immature Gran # (Auto) (0.00-0.02) K/uL Neut # (Auto) (1.4-6.5) K/uL Lymph # (Auto) (1.2-3.4) K/uL [place] # (Auto) (0.11-0.59) K/uL Eos # (Auto) (0-0.5) K/uL Baso # (Auto) (0-0.2) K/uL PT (9.0-12.0) Seconds INR (0.9-1.1) APTT (21.0-31.0) Seconds PTT Ratio VBG pH 7.39 (7.36-7.41) VBG pCO2 47 (38-50) mmHg VBG pO2 21 mmHg VBG HCO3 28 mmol/L VBG O2 Saturation < 60.0 % VBG Base Excess 2.0 mEq/L Barometric Pressure 730.9 mm/Hg Sodium (136-145) mmol/L Potassium (3.5-5.1) mmol/L Chloride (98-107) mmol/L Carbon Dioxide (21-32) mmol/L Anion Gap (3-11) BUN (7-18) mg/dl Creatinine (0.6-1.2) mg/dl Est Cr Clr Drug Dosing ml/min Est GFR ( Amer) Est GFR (Non-Af Amer) BUN/Creatinine Ratio (10-20) Glucose (70-99) mg/dl Lactate 3.0 H* (0.4-2.0) mmol/L Calcium (8.5-10.1) mg/dl Total Bilirubin (0.2-1) mg/dl AST (15-37) U/L ALT (12-78) U/L Alkaline Phosphatase (45-117) U/L Troponin I (0-0.045) ng/ml Total Protein (6.4-8.2) gm/dl Albumin (3.4-5.0) gm/dl Globulin (2.5-4.0) gm/dl Albumin/Globulin Ratio (0.9-2) Beta-Hydroxybutyric Acd (0.2-2.81) mg/dl Procalcitonin (0-0.5) ng/ml Influenza Type A Ag (Neg) Influenza Type B Ag (Neg) Imaging Data Radiologist's Impression: SINGLE VIEW CHEST CLINICAL HISTORY: Cough and fever FINDINGS: An AP, portable, upright chest radiograph is compared to study dated 02/06/2019. The examination is significantly degraded by portable technique, large body habitus, and patient rotation. The heart is enlarged noting atherosclerotic calcification of the thoracic aorta. There is pulmonary vascular congestion. Bilateral airspace opacities likely represent interstitial edema. No large pleural effusion is identified. No pneumothorax is seen. The skeletal structures are osteopenic. The bony thorax is grossly intact. IMPRESSION: 1. Cardiomegaly with evidence of congestive failure. 2. Bilateral airspace opacities likely represent a component of interstitial edema. Correlate clinically for evidence of a superimposed infectious/infl ammatory pneumonitis. Radiographic follow-up to resolution is recommended. Electronically signed by: Cristi Sanders M.D. 05/23/2019 4:03 PM MDM Narrative Patient was seen and evaluated as above in room C8. Review was performed of nursing notes and vital signs. After obtaining a thorough history and physical examination the above work up was performed. She presents to us today via private vehicle accompanied by her over concerns of possible pneumonia. She is hypertensive and febrile on arrival. notes she is confused. She thinks she is here because she fell but there is no history of such. She has had a cough since last week when she returned home from dialysis. She is currently on dialysis 3 times a week last of which was yesterday. Given the holiday, she is scheduled for dialysis tomorrow as well. Although the lungs are somewhat clear to auscultation on my examination she is not moving much air therefore obscuring fine detail. Chest x-ray, and sepsis protocol was initiated. Results as above. Given the patient's non-hypotensive state and non-tachycardic state I began with gentle fluid resuscitation rather than a large amount one time over her past medical history and concern of volume overloading the patient. For the above-mentioned reason, the 30 mL/kilogram was not utilized for fluid resuscitation. Patient was also given IV Tylenol. At one point throughout the patient's stay she was not answering questions well at all and did not seem to be mentating well. She also had increased work of [employer]. This prompted escalation with more oxygen and better delivery of the oxygen. Empiric antibiotics were given secondary to the patient's febrile state and cough. These were dosed based upon patient weight, presentation and pharmacy recommendations. CBC reveals leukocytosis with mild anemia. There is creatinine elevation not far from baseline, hyperglycemia, lactic acidosis, troponin elevation as well as questionable contamination versus infected urine. Patient's flu swab is negative. The chest x-ray is concerning again for volume overload with possible superimposed infectious process which clinically correlates. I do believe that further evaluation and management is warranted in the inpatient setting. Initially, patient showed a great increased work of breathing and was going to transition to BiPAP but improved quickly and was stable and felt that this was not needed nor was intubation required. She was reevaluated at that time and was alert and oriented x3, noted a mild headache and denied any chest pain or shortness of breath. She will be admitted to the ICU via hospitalist team. Please refer to further documentation regarding her stay. Case was discussed with the attending physician. EKG was reviewed by myself and found to be sinus tachycardia at a rate of 113 beats per minute and per my interpretation reveals right bundle branch block with QTC at 518 without evidence of STEMI and when compared to previous EKG no significant change was found. I attest that I have personally reviewed the patient medication list. I attest that I have reviewed the patient's blood pressure and it was found to be elevated on arrival GCS: 15 IMPRESSION: Chest Pain In the evaluation and treatment of this patient, the following differential diagnoses were considered: PR, ASC, Dysrhythmia, Angina, Mediastinitis, GERD, Esophagitis, PE, Pneumonia, Bronchitis, Costochondritis, Rib Fracture, Zoster, sepsis, among others. Impression & Plan Cough, Hypoxia, Pneumonia, Elevated troponin, Elevated lactic acid level Discharge Plan Visit Data *Final* Discharge Date/Time: 05/23/19 19:52 Chief Complaint: Shortness of Breath/Dyspnea Stated Complaint: POSSIBLE PNEUMONIA, SOB, COLD ED Provider: Bryce Resendiz ED Midlevel Provider: Sagar Romo Discharge Problem: Cough, Hypoxia, Pneumonia, Elevated troponin, Elevated lactic acid level Patient Disposition: Admitted As Inpatient Condition: Fair Discharge Instructions Interventions: ED Discharge Assessment Last Done: 05/23/19 19:52
[2019-05-23 15:37] LABS: Basophils # (auto) 0.03 K/uL (0-0.2); Basophils % (auto) 0.2 %; Eosinophils # (auto) 0.14 K/uL (0-0.5); Eosinophils % (auto) 1.1 %; Hematocrit (blood only) 34.4 % (37-47); Hemoglobin 11.5 g/dL (12.0-16.0); Immature Granulocytes # (auto) 0.04 K/uL (0.00-0.02); Immature Granulocytes % (auto) 0.3 %; Lymphocytes # (auto) 1.46 K/uL (1.2-3.4); Lymphocytes % (auto) 11.9 %; Mean Corpuscular Hemoglobin 32.6 pg (25-34); Mean Corpuscular Hgb Conc 33.4 g/dL (32-36); Mean Corpuscular Volume 97.5 fL (80-100); Mean Platelet Volume 9.6 fL (7.4-10.4); Monocytes # (auto) 0.77 K/uL (0.11-0.59); Monocytes % (auto) 6.3 %; Neutrophils % (auto) 80.2 %; Platelet Count 156 K/uL (130-400); RDW Coefficient of Variation 16.1 % (11.5-14.5); RDW Standard Deviation 57.5 fL (36.4-46.3); Red Blood Count 3.53 M/uL (4.2-5.4); White Blood Count 12.24 K/uL (4.8-10.8)
[2019-05-23 15:45] LABS: HCO3 VBG 28 mmol/L; Oxygen Saturation VBG < 60.0 %; PCO2 VBG 47 mmHg (38-50); PO2 VBG 21 mmHg; pH VBG 7.39 (7.36-7.41)
[2019-05-23 15:48] LABS: INR 1.2 (0.9-1.1); Partial Thromboplastin Ratio 1.1; Partial Thromboplastin Time 28.7 Seconds (21.0-31.0); Prothrombin Time 11.9 Seconds (9.0-12.0)
[2019-05-23] MEDS ORDERED: ALBUT/IPRATROP 3MG/0.5MG NEB 3 ML VIAL NEB STA (15:49)
[2019-05-23] MEDS ORDERED: VANCOMYCIN HCL 1,500 MG in SODIUM CHLORIDE 0.9% 500 ML IV STA (15:55)
[2019-05-23] MEDS ORDERED: VANCOMYCIN CONSULT ACTIVE PRN (15:55)
[2019-05-23] MEDS ORDERED: PIPERACILLIN/TAZOBACTAM 4.5 GM/120 ML BAG IV ONE (15:55)
[2019-05-23] MEDS ORDERED: PIPERACILL/TAZOBAC CONSULT ACTIVE PRN (15:55)
--- NOTE | 2019-05-23 16:04 | XRay Report ---
SINGLE VIEW CHEST CLINICAL HISTORY: Cough and fever FINDINGS: An AP, portable, upright chest radiograph is compared to study dated 02/06/2019. The examina tion is significantly degraded by portable technique, large body habitus, and patient rotation. The h eart is enlarged noting atherosclerotic calcification of the thoracic aorta. There is pulmonary vascu lar congestion. Bilateral airspace opacities likely represent interstitial edema. No large pleural ef fusion is identified. No pneumothorax is seen. The skeletal structures are osteopenic. The bony thora x is grossly intact. IMPRESSION: 1. Cardiomegaly with evidence of congestive failure. 2. Bilateral airspace opacities likely represent a component of interstitial edema. Correlate clinica lly for evidence of a superimposed infectious/inflammatory pneumonitis. Radiographic follow-up to res olution is recommended. Electronically signed by: Cristi Sanders M.D. 05/23/2019 4:03 PM
[2019-05-23 16:10] LABS: Albumin Globulin Ratio 0.6 (0.9-2); Albumin Level 3.3 gm/dl (3.4-5.0); Bilirubin,Total 0.5 mg/dl (0.2-1); Calcium 9.2 mg/dl (8.5-10.1); Creatinine Clr Calc Pharmacy 11.9 ml/min; Est GFR (African American) 8.6; Est GFR (Non-African American) 7.5; Globulin 5.2 gm/dl (2.5-4.0); Potassium 4.5 mmol/L (3.5-5.1); Total Protein 8.5 gm/dl (6.4-8.2); Troponin I 0.236 ng/ml (0-0.045)
[2019-05-23] MEDS: SODIUM CHLORIDE 0.9% 500 ML IV SCH ×2 (16:14→21:05)
--- NOTE | 2019-05-23 16:20 | Emergency Department Note ---
ED Visit Note The patient presents the ED with a chief complaint of shortness of breath and pneumonia symptoms. Her chest x-ray is revealing for pneumonia. The patient's exam reveals some scattered wheezes in the bilateral lungs. She appears weak. She at this time appears to be controlling her breathing adequately. She is saturating 96% on the oxygen mask. I have personally seen and evaluated the patient with the physician fundraising assistant. I agree with the diagnostic/management decisions and have personally been involved in these decisions and agree with the diagnosis. .
[2019-05-23] MEDS ORDERED: ACETAMINOPHEN 65 ML IV ONE (16:24)
[2019-05-23] MEDS ORDERED: ACETAMINOPHEN 1000 MG/100 ML IV IV ONE ×2 (16:30→16:34)
[2019-05-23 16:43] LABS: Beta-Hydroxybutyrate 1.37 mg/dl (0.2-2.81)
--- NOTE | 2019-05-23 18:07 | History & Physical Report ---
Date of Service May 23, 2019 Assessment & Plan (1) Sepsis associated hypotension: Admit to ICU Vital signs per ICU protocol Continue vancomycin and Zosyn empirically managed per pharmacy. Follow-up urinary/blood cultures/sputum cultures. Dialysis tomorrow scheduled Consult nephrology Repeat lactic acid in 2 hours Closely follow and monitor electrolytes. Other management per ICU team. DVT prophylaxis SCDs and teds. Heparin 5000 units every 12 hours DNR, patient accepts intubation. Present on Admission?: Yes (2) Metabolic acidosis: Patient was started in the ER on 1 L of normal saline at 125 cc/h. Continue monitoring for volume overload. Would not give more than 1 L of fluid. Recheck lactic acid in 2 hours. Continue monitoring for signs of sepsis and SIRS Present on Admission?: Yes (3) Congestive heart failure with LV diastolic dysfunction, NYHA class 3: Strict in and out Daily weight. Monitor for volume overload. Patient will have hemodialysis tomorrow. Continue furosemide 40 mg IV daily. Present on Admission?: Yes (4) Sleep apnea: Continue CPAP/BiPAP and supplemental oxygen Present on Admission?: Yes (5) Left posterior fascicular block (LPFB): Likely due to demand ischemia and end-stage renal disease and poor critical clearance of troponin. Patient denies chest pain. Patient had this problem in the past. Elevated elevated troponin to 0.236. Continue checking troponin x2 with EKG. Present on Admission?: Yes (6) Diabetic retinopathy: Glycemic control per pharmacy. Accu-Cheks before meals and at bedtime. Present on Admission?: Yes (7) Diabetic neuropathy: As the above (8) Diabetic nephropathy: As the above (9) Diabetes mellitus type 2 with complications: As the above (10) Hypoxia: As already discussed. Continue CPAP/BiPAP. Intubate if patient is hemodynamically unstable. Present on Admission?: Yes (11) Secondary hyperparathyroidism (of renal origin): Continue following up with nephrology . Placed nephrology consult Present on Admission?: Yes (12) Morbid obesity with BMI of 40.0-44.9, adult: Patient this is patient a long-standing problem. Patient advised to try to lose weight if any way possible. Present on Admission?: Yes (13) Paroxysmal atrial fibrillation: Patient is not on anticoagulation. Continue amiodarone 200 mg p.o. twice daily, aspirin 81 mg p.o. nightly, clopidogrel 75 mg p.o. every morning, metoprolol tartrate 100 mg p.o. twice daily. Hold medication patient hypotensive and blood pressure less than 120/80. Present on Admission?: Yes (14) Hyperlipidemia: Continue home medicine: fish oil 1 g p.o. daily Present on Admission?: Yes (15) ESRD on dialysis: Hemodialysis is scheduled for Wednesday and Wednesday. Because of holiday schedule patient will have hemodialysis tomorrow. Patient had full hemodialysis yesterday Present on Admission?: Yes (16) Respiratory failure: As already discussed Present on Admission?: Yes (17) Hyponatremia: Due to chronic issues, continue monitoring Present on Admission?: Yes History of Present Illness Chief Complaint: Acute respiratory failure, pneumonia, hypoxia, acute exacerbation of congestive heart failure. Primary Care Provider: Phill Ramirez III, RADHA Patient is a 69 years old female with past medical history of end-stage renal disease on dialysis (Wednesday and Wednesday), hypertension, peripheral vascular disease, paroxysmal supraventricular tachycardia, anemia, hypothyroidism, hyperlipidemia, sleep apnea, diabetes mellitus type 2 with diabetic retinopathy, diabetic neuropathy, diabetic nephropathy, morbidly obese, metabolic syndrome, who presented to the emergency room in the acute respiratory failure and her oxygen dropping below 88% on room air. Patient usually does not use oxygen at home. Patient had her regular hemodialysis yesterday and her next hemodialysis is scheduled for tomorrow due to holiday schedule. Patient has been stated patient became increasingly short of breath started to feel cold and chills, and he states that past patient came from the dialysis and developed a cough. She also had some sinus congestion with drainage. The cough is persistent and nonproductive. Today patient became confused this is the time when he called 911. When I was examining the patient she was already in better condition. She was able to talk even though she was still on BiPAP. Patient stated that she is okay with intubation but indicates that she becomes unresponsive he does not want CPR to be done. She also does not want any other medical intervention to be done except for intubation. Patient denies headache, abdominal pain, frequency, urgency, hematuria, dysuria. Labs are reviewed: WBCs 12.24, hemoglobin 11.5, hematocrit 34.4, platelets 156, PT 11.9, INR 1.2, APTT 28.7. VBG shows pH 7.46, P CO2 40, ABG PO2 66 ABG HCO3 28. Patient is above 91% on 3 L of oxygen. Sodium 129, potassium 4.2, chloride 90, BUN 22, creatinine 5.38, GFR 7.5, lactate 3.4--> repeated 3. Troponin 0 0.36, alkaline phosphatase 136, protein 8.5, globulin 5.2, procalcitonin 1.55. Chest x-ray significant for cardiomegaly with evidence of congestive failure. Bilateral a space opacity is likely present a component of interstitial edema. There is evidence of a superimposed infectious/inflammatory pneumonitis. We could not rule out pneumonia especially in setting of sepsis and elevated lactate and procalcitonin. The case was discussed and patient is going to be admitted to ICU for the further evaluation and management of acute respiratory failure, acute congestive heart failure, pneumonia, compensated metabolic acidosis ,hyponatremia and other comorbidities. Allergies Allergy/AdvReac Type Severity Reaction Status Date / Time No Known Allergies Allergy Verified 05/23/19 16:10 Home Medications Home Medications Medication Instructions Recorded Confirmed Type calcium acetate 667 mg PO TIDM 05/14/18 05/23/19 History furosemide 40 mg PO BID 05/14/18 05/23/19 History latanoprost 1 drp OPB HS 05/14/18 05/23/19 History levothyroxine 50 mcg PO QAM 05/14/18 05/23/19 History omega-3 acid ethyl esters 1 g PO DAILY 05/14/18 05/23/19 History aspirin [Aspir-81] 81 mg PO HS 07/23/18 05/23/19 History cholecalciferol (vitamin D3) 50,000 units PO WK 07/23/18 05/23/19 History metoprolol tartrate 100 mg tablet 100 mg PO BID #180 tab 12/30/18 05/23/19 Rx clopidogrel 75 mg PO QAM 01/16/19 05/23/19 History pregabalin 25 mg capsule 25 mg PO BID #60 cap 04/24/19 05/23/19 Rx insulin glargine 100 unit/mL (3 See Rx Instructions SUBCUT 05/15/19 05/23/19 Rx mL) subcutaneous pen .COMPLEX #30 ml amiodarone 200 mg PO BID 05/23/19 05/23/19 History oxycodone-acetaminophen [Percocet] 1 tab PO DAILY PRN 05/23/19 05/23/19 History Past Med/Surg History Medical History Anemia (Chronic 05/24/13) AVNRT (AV alondra re-entry tachycardia) Chronic diastolic CHF (congestive heart failure) Colon cancer screening Diabetes mellitus (Resolved) Diabetes mellitus type 2 with complications (Chronic) Diabetic nephropathy (Chronic) Diabetic peripheral neuropathy associated with type 2 diabetes mellitus (Resolved) Dialysis patient (Chronic) ESRD on dialysis (Chronic) dialysis--tue/thur/sat GI (gastrointestinal bleed) (Resolved 05/24/13) Gout History of colon cancer (Chronic) 2008--sx, chemo History of diabetic ulcer of foot (Chronic) Hyperlipidemia (Chronic) Hypertension (Chronic) Hypothyroidism (Chronic) Hypoxia (Resolved) Left posterior fascicular block (LPFB) (Chronic) Obesity Palpitations (Resolved) Paroxysmal atrial fibrillation (Chronic) on plavix follows with Kip Fletcher Paroxysmal supraventricular tachycardia (Chronic) PVD (peripheral vascular disease) (Chronic) RBBB (right bundle branch block) (Chronic) SIRS (systemic inflammatory response syndrome) (Resolved) Sleep apnea (Chronic) does not use CPAP Surgical History Arteriovenous fistula left arm 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) History of bilateral cataract extraction History of bladder surgery per pt half of bladder removed during colectomy History of colectomy 4 ft removed History of colonoscopy History of colostomy History of colostomy reversal History of tonsillectomy and adenoidectomy History of total hysterectomy with bilateral salpingo-oophorectomy (BSO) History of wisdom tooth extraction Hx of right BKA (Resolved) Family History Mother Breast cancer Grandfather Myocardial infarction Father Family history of diabetes mellitus Other No family history of adverse response to anesthesia Social History Preferred Language: Greek Communication Ability: Effective Visual Impairment: No Limitations Parent Educator Required: No Beliefs That Will Affect Care: None marital status: Current Living Situation: Spouse current occupational status: retired Other Information That Helps Us Care for You: No Feels Safe at Home: Yes Safety Concerns: Feels Safe At This Time Smoking Status: Never smoker Second Hand Exposure: No ; Hx Alcohol Use: No Hx Substance Use: No Review of Systems Review of Systems: All systems reviewed & are unremarkable except as noted in HPI & below Physical Exam Constitutional: WD/WN, vitals as above well developed and + morbidly obese Eyes: PERRL, conjunctivae normal, anicteric sclerae ENMT: external ear and nose normal, oropharynx normal Neck: trachea midline, no thyromegaly Respiratory: + respiratory distress Auscultation: + crackles, + wheezes and + bronchovesicular breath sounds Cardiovascular: RRR, no murmur, no edema Rate/Rhythm: + irregularly i rregular Heart Sounds: normal S1, normal S2 and + murmur Palpation: + palpable S3 Vessels: + JVD and dorsalis pedis pulses present Gastrointestinal (Abdomen): normal bowel sounds, soft, nontender, no hepatosplenomegaly Musculoskeletal: no cyanosis or clubbing, extremities motor strength 5/5 Skin: no rashes, warm and dry Neurologic: patellar DTR's 2+ bilat, sensation intact Psychiatric: A+Ox3, euthymic affect Lymphatic: no cervical or axillary lymphadenopathy Results & Data Vital Signs (Past 12 Hours) Vital Signs Temp Pulse Pulse Resp BP Pulse Ox 05/23/19 17:43 37.3 C 05/23/19 17:26 94 H 18 156/57 H 97 05/23/19 17:01 37.8 C H 104 H 23 84/61 L 97 05/23/19 17:00 97 H 29 H 97 05/23/19 16:50 98 H 23 96 05/23/19 16:40 96 H 30 H 96 05/23/19 16:34 101 H 18 96 05/23/19 16:20 101 H 24 96 05/23/19 15:45 103 H 31 H 97 05/23/19 15:44 102 H 23 145/113 H 97 05/23/19 15:40 99 H 25 H 86 L 05/23/19 15:09 106 H 18 140/106 H 05/23/19 14:57 38.3 C H 70 22 196/124 H 97 Code Status & VTE Plan Code Status Full code VTE Prophylaxis Plan VTE Prophylaxis will be ordered: Yes PG Care Time/CCT Total # of Minutes Spent Total Time Spent with Patient: Total time spent is greater than 50% in coordination of care (as documented) at patient's floor/unit and/or counseling patient:
[2019-05-23 19:16] LABS: Appearance Urine Turbid (Clear); Bacteria Urine Automated 4+ (Negative); Bilirubin Urine Negative (Negative); Blood Urine 1+ (Negative); Color Urine Yellow; Epithelial Cell Urine Auto >30 /lpf (0-5); Glucose Urine UA 3+ (Negative); Ketones Urine Negative (Negative); Leukocyte Esterase Urine 1+ (Negative); Nitrite Urine Negative (Negative); RBC Urine Automated 0-4 /hpf (0-4); Specific Gravity Urine 1.019 (1.000-1.030); Urobilinogen Urine Negative (Negative); WBC Urine Automated >30 /hpf (0-5); pH Urine 8.5 (4.5-7.5)
[2019-05-23 19:17] LABS: Protein Urine 3+ (Negative)
[2019-05-23 19:21] LABS: Sulfosalicylic Acid Urine Positive (Negative)
[2019-05-23] MEDS ORDERED: INSULIN GLARGINE SOLOSTAR 100 UNITS/ML 3 ML PEN SQ SCH (20:39)
[2019-05-23] MEDS ORDERED: DEXTROSE 50% 50 ML SYRINGE IV PRN (20:39)
[2019-05-23] MEDS ORDERED: MAGNESIUM HYDROXIDE SUSP 30 ML UDC PO PRN (20:39)
[2019-05-23] MEDS ORDERED: CARBOHYDRATES FOR HYPOGLYCEMIA PO PRN (20:39)
[2019-05-23] MEDS ORDERED: FUROSEMIDE 40 MG/4 ML VIAL IV STA (20:39)
[2019-05-23] MEDS ORDERED: GLUCAGON FOR INJ 1 MG VIAL SQ PRN (20:39)
[2019-05-23] MEDS ORDERED: ALUMINUM/MAGNESIUM SUSP 30 ML UDC PO PRN (20:39)
[2019-05-23] MEDS ORDERED: GLUCOSE 10 TABS/TUBE PO PRN (20:39)
[2019-05-23] MEDS ORDERED: ONDANSETRON INJ 2 MG/ML 2 ML VIAL IV PRN (20:39)
[2019-05-23] MEDS ORDERED: POLYETHYLENE (MIRALAX) 17 GM PACK PO PRN (20:39)
[2019-05-23] MEDS ORDERED: GLUCOSE 40% GEL 15 GM TUBE PO PRN (20:39)
[2019-05-23] MEDS ORDERED: PHARMACY GLYCEMIC MGMT CONSULT PRN (20:52)
--- NOTE | 2019-05-23 20:59 | Critical Care Consultation ---
Date of Consultation May 23, 2019 Assessment & Plan (1) Respiratory distress, acute: Neuro - [facility] ICU: Negative Cardiac - CHF with LV diastolic dysfunctionNYHA class III -Chest x-ray suggestive of cardiopulmonary edema, BNP elevated 12,000 -Fluid restrictions, will give 40 mg Lasix as patient is not completely an uric but does require dialysis Wednesday schedule with last session yesterday and will need dialysis tomorrow -will hold IV fluids for now -Strict I's and O's, daily weights, monitor on telemetry Proximal A. fibcurrently in normal sinus rhythm, patient is not currently anticoagulated - continue MTP, amiodarone, ASA, Plavix Elevated troponinmild and likely secondary to kidney disease, will trend Respiratory - Acute respiratory distresspulmonary congestive versus pneumonia, likely mixed -CXR suggestive of pulmonary congestion and likely pneumonitis; BNP elevated at 12,000 -Lactate and procalcitonin elevated, blood cultures pending, continue broad- spectrum antibiotics; patient recently treated for pneumonia in January without growth on blood cultures -Given Lasix and will undergo hemodialysis tomorrow -Currently stable on 2 L oxygen, will consider BiPAP in the event of decompensation, continue to monitor GI - We will advance to diabetic diet as tolerated RENAL/LYTES - ESRDundergoes hemodialysis Wednesday with last session yesterday without complication -Currently volume overloaded with plan to receive dialysis session tomorrow -Electrolytes within normal limits and pH stable, will routinely monitor -Nephrology consulted, will follow recommendations - Oliguria secondary to ESRD ENDO - DM type IIuncontrolled as last hemoglobin A1c from 04/15 8.8 -Patient was hyperglycemic in the emergency department and now on insulin drip, will transition to sliding scale and Lantus -ICU hyperglycemic protocol Hypothyroidismcontinue Synthroid HEME - H&H stable, routinely monitor ID - Sepsisurosepsis versus pulmonary source currently hemodynamically stable without need for vasopressors -Procalcitonin and lactate elevated will trend, UA positive for bacteria and urine culture pending, CXR suggestive of multifocal pneumonia -Influenza A and B negative, MRSA negative -Blood cultures pending -Continue Zosyn and vancomycin for now LINES/IV ACCESS - Peripheral IVs DVT PROPHYLAXIS - SCDs, heparin (2) Dialysis patient: (3) Diabetes mellitus type 2 with complications: (4) History of amputation below knee: (5) Paroxysmal atrial fibrillation: (6) Hypothyroidism: (7) Hyperlipidemia: (8) ESRD on dialysis: (9) Congestive heart failure with LV diastolic dysfunction, NYHA class 3: History of Present Illness Attending Physician: Celeste Cavanaugh MD History of Present Illness Ms. Mars is a 69-year-old female with significant past medical history including CHF, DM type II, right BKA, ESRD (on dialysis MWF), who presented to the emergency department with complaints of ongoing shortness of breath over the past 2 days. Patient states that she started having shortness of breath yesterday following her dialysis session which continued to get worsen. She c laims that while sleeping on arrival to the emergency department the patient was found to be hypoxic and required supplemental oxygen. Per my conversation with Dr. Cavanaugh, the patient appeared to be in respiratory distress and BiPAP was ordered but never initiated as the patient began to improve. She is also found to have likely pneumonia on her CXR and urinary tract infection based off her UA. She also has elevated lactate and procalcitonin but remains hemodynamically stable. On arrival to the ICU, patient is alert and oriented and appears comfortable on 2 L of supplemental oxygen and is otherwise hemodynamically stable. She is not currently complaining of any shortness of breath and breathing is nonlabored. She denies headache, syncope, sore throat, chest pain, palpitations, abdominal pain. She did report moderate swelling in her left foot when she was sitting up earlier. Currently the patient is doing much better than was reported in the emergency department. We will continue to closely monitor here in ICU overnight with likely downgrade in the morning if patient remains stable. Allergies Allergy/AdvReac Type Severity Reaction Status Date / Time No Known Allergies Allergy Verified 05/23/19 16:10 Home Medications Home Medications Medication Instructions Recorded Confirmed Type calcium acetate 667 mg PO TIDM 05/14/18 05/23/19 History furosemide 40 mg PO BID 05/14/18 05/23/19 History latanoprost 1 drp OPB HS 05/14/18 05/23/19 History levothyroxine 50 mcg PO QAM 05/14/18 05/23/19 History omega-3 acid ethyl esters 1 g PO DAILY 05/14/18 05/23/19 History aspirin [Aspir-81] 81 mg PO HS 07/23/18 05/23/19 History cholecalciferol (vitamin D3) 50,000 units PO WK 07/23/18 05/23/19 History metoprolol tartrate 100 mg tablet 100 mg PO BID #180 tab 12/30/18 05/23/19 Rx clopidogrel 75 mg PO QAM 01/16/19 05/23/19 History pregabalin 25 mg capsule 25 mg PO BID #60 cap 04/24/19 05/23/19 Rx insulin glargine 100 unit/mL (3 See Rx Instructions SUBCUT 05/15/19 05/23/19 Rx mL) subcutaneous pen .COMPLEX #30 ml amiodarone 200 mg PO BID 05/23/19 05/23/19 History oxycodone-acetaminophen [Percocet] 1 tab PO DAILY PRN 05/23/19 05/23/19 History Patient History Medical History Anemia (Chronic 05/24/13) AVNRT (AV alondra re-entry tachycardia) Chronic diastolic CHF (congestive heart failure) Colon cancer screening Diabetes mellitus (Resolved) Diabetes mellitus type 2 with complications (Chronic) Diabetic nephropathy (Chronic) Diabetic peripheral neuropathy associated with type 2 diabetes mellitus (Reso lved) Dialysis patient (Chronic) ESRD on dialysis (Chronic) dialysis--tue/thur/sat GI (gastrointestinal bleed) (Resolved 05/24/13) Gout History of colon cancer (Chronic) 2008--sx, chemo History of diabetic ulcer of foot (Chronic) Hyperlipidemia (Chronic) Hypertension (Chronic) Hypothyroidism (Chronic) Hypoxia (Resolved) Left posterior fascicular block (LPFB) (Chronic) Obesity Palpitations (Resolved) Paroxysmal atrial fibrillation (Chronic) on plavix follows with Kip Fletcher Paroxysmal supraventricular tachycardia (Chronic) PVD (peripheral vascular disease) (Chronic) RBBB (right bundle branch block) (Chronic) SIRS (systemic inflammatory response syndrome) (Resolved) Sleep apnea (Chronic) does not use CPAP Surgical History Arteriovenous fistula left arm 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) History of bilateral cataract extraction History of bladder surgery per pt half of bladder removed during colectomy History of colectomy 4 ft removed History of colonoscopy History of colostomy History of colostomy reversal History of tonsillectomy and adenoidectomy History of total hysterectomy with bilateral salpingo-oophorectomy (BSO) History of wisdom tooth extraction Hx of right BKA (Resolved) Family History Mother Breast cancer Grandfather Myocardial infarction Father Family history of diabetes mellitus Other No family history of adverse response to anesthesia Social History Preferred Language: [place] Communication Ability: Effective Visual Impairment: No Limitations Maintenance Mgr Required: No Beliefs That Will Affect Care: None marital status: Current Living Situation: Spouse current occupational status: retired Feels Safe at Home: Yes Smoking Status: Former smoker Second Hand Exposure: No ; Hx Alcohol Use: No Hx Substance Use: No Review of Systems Review of Systems: All systems reviewed & are unremarkable except as noted in HPI & below Physical Exam Constitutional: WD/WN, vitals as above + obese, cooperative and comfortable Eyes: PERRL, conjunctivae normal, anicteric sclerae ENMT: external ear and nose normal, oropharynx normal Nonproductive cough Neck: trachea midline, no thyromegaly Respiratory: Auscultation: + diminished lung sounds Nonlabored breathing, symmetrical chest wall movement, lung sounds diminished in all hsieh, no wheezes or crackles auscultated Cardiovascular: Rate/Rhythm: regular rate and regular rhythm Vessels: no JVD Gastrointestinal (Abdomen): Abdomen obese, soft, nontender, bowel sounds auscultated in all 4 quadrants and normoactive Skin: no rashes, warm and dry Neurologic: PERRL, EOMI, accommodation nl, no face palsy, no dysarthria Psychiatric: A+Ox3, euthymic affect Results & Data Vital Signs (Past 12 Hours) Vital Signs Temp Pulse Pulse Resp BP BP Pulse Ox 05/23/19 19:02 93 H 94 H 22 121/75 97 05/23/19 17:43 37.3 C 05/23/19 17:31 96 H 25 H 123/63 91 05/23/19 17:26 94 H 18 156/57 H 97 05/23/19 17:01 37.8 C H 104 H 23 84/61 L 97 05/23/19 17:00 97 H 29 H 97 05/23/19 16:50 98 H 23 96 05/23/19 16:40 96 H 30 H 96 05/23/19 16:34 101 H 18 96 05/23/19 16:20 101 H 24 96 05/23/19 15:45 103 H 31 H 97 05/23/19 15:44 102 H 23 145/113 H 97 05/23/19 15:40 99 H 25 H 86 L 05/23/19 15:09 106 H 18 140/106 H 05/23/19 14:57 38.3 C H 70 22 196/124 H 97 Coding Level of Care Code 13190 Inpt Consult Level 5 Diagnoses Respiratory distress, acute R06.03 Dialysis patient Z99.2 Diabetes mellitus type 2 with complications E11.8 History of amputation below knee Z89.511 Laterality: right Paroxysmal atrial fibrillation I48.0 Hypothyroidism E03.9 Hypothyroidism type: acquired Hyperlipidemia E78.5 ESRD on dialysis N18.6; Z99.2 Congestive heart failure with LV diastolic dysfunction, NYHA class 3 I50.30 (1) History of amputation below knee Laterality: right Qualified Code(s): Z89.511 - Acquired absence of right leg below knee (2) Hypothyroidism Hypothyroidism type: acquired Qualified Code(s): E03.9 - Hypothyroidism, unspecified
[2019-05-23] MEDS ORDERED: INSULIN REGULAR 250 UNITS in SODIUM CHLORIDE 0.9% 247.5 ML IV SCH (21:45)
[2019-05-23] MEDS ORDERED: NovoLIN-R BOLUS FROM BAG IV ONE (21:45)
[2019-05-23 21:47] LABS: Magnesium 1.9 mg/dl (1.8-2.4)
[2019-05-23] MEDS: METOPROLOL TARTRATE 100 MG TAB PO SCH (22:41)
[2019-05-23] MEDS: ASPIRIN 81 MG ECTAB PO SCH (22:43)
[2019-05-23] MEDS: AMIODARONE 200 MG TAB PO SCH (22:43)
[2019-05-23] MEDS: FUROSEMIDE 20 MG in SYRINGE 0 ML IV SCH (22:44)
[2019-05-23] MEDS: LATANOPROST 0.005% OP SOLN 2.5 ML BTL OPB SCH (22:44)
[2019-05-23] MEDS: PREGABALIN 25 MG CAP PO SCH (22:47)
[2019-05-23 23:40] LABS: Troponin I 0.292 ng/ml (0-0.045)
[2019-05-24] MEDS ORDERED: PIPERACILLIN/TAZOBACTAM 4.5 GM in DEXTROSE 5% 100 ML IV SCH
[2019-05-24] MEDS: OXYCODONE/ACETAMINOPHEN 5mg/325mg TAB PO PRN ×2 (00:06→23:39)
[2019-05-24] MEDS: INSULIN ASPART 100 UNITS/ML 3 ML PEN SC SCH ×5 (00:58→20:24)
[2019-05-24 05:35] LABS: Basophils # (auto) 0.02 K/uL (0-0.2); Basophils % (auto) 0.2 %; Eosinophils # (auto) 0.34 K/uL (0-0.5); Eosinophils % (auto) 3.9 %; Hematocrit (blood only) 29.1 % (37-47); Hemoglobin 9.7 g/dL (12.0-16.0); Immature Granulocytes # (auto) 0.01 K/uL (0.00-0.02); Immature Granulocytes % (auto) 0.1 %; Lymphocytes # (auto) 0.62 K/uL (1.2-3.4); Mean Corpuscular Hemoglobin 32.2 pg (25-34); Mean Corpuscular Hgb Conc 33.3 g/dL (32-36); Mean Corpuscular Volume 96.7 fL (80-100); Mean Platelet Volume 9.5 fL (7.4-10.4); Monocytes # (auto) 0.48 K/uL (0.11-0.59); Monocytes % (auto) 5.4 %; Neutrophils # (auto) 7.35 K/uL (1.4-6.5); Neutrophils % (auto) 83.4 %; Platelet Count 136 K/uL (130-400); RDW Coefficient of Variation 16.7 % (11.5-14.5); RDW Standard Deviation 58.4 fL (36.4-46.3); Red Blood Count 3.01 M/uL (4.2-5.4); White Blood Count 8.82 K/uL (4.8-10.8)
[2019-05-24 06:16] LABS: Alanine Aminotransferase 21 U/L (12-78); Albumin Globulin Ratio 0.6 (0.9-2); Albumin Level 2.7 gm/dl (3.4-5.0); Alkaline Phosphatase 84 U/L (45-117); Aspartate Aminotransferase 17 U/L (15-37); BUN Creatinine Ratio 4.3 (10-20); Bilirubin,Total 0.6 mg/dl (0.2-1); Blood Urea Nitrogen 27 mg/dl (7-18); Calcium 8.5 mg/dl (8.5-10.1); Carbon Dioxide 27 mmol/L (21-32); Chloride 98 mmol/L (98-107); Chol HDL Ratio 8; Cholesterol 221 mg/dl (0-200); Creatinine Clr Calc Pharmacy 10.5 ml/min; Est GFR (African American) 7.2; Est GFR (Non-African American) 6.2; Globulin 4.4 gm/dl (2.5-4.0); Glucose 124 mg/dl (70-99); HDL Cholesterol 29 mg/dl; Phosphorus 6.5 mg/dl (2.5-4.9); Potassium 4.1 mmol/L (3.5-5.1); Sodium 134 mmol/L (136-145); Total Protein 7.1 gm/dl (6.4-8.2); Triglycerides 666 mg/dl (0-150)
[2019-05-24] MEDS: LEVOTHYROXINE SODIUM 50 MCG TABLET PO SCH (06:25)
[2019-05-24 07:47] LABS: Estimated Average Glucose 246 mg/dl; Hemoglobin A1C 10.2 % (4.5-5.6)
--- NOTE | 2019-05-24 08:03 | Critical Care Progress Note ---
Date of Service May 24, 2019 Assessment & Plan (1) Respiratory failure: Neuro - [facility] ICU: Negative Cardiac - CHF with LV diastolic dysfunctionNYHA class III -Chest x-ray suggestive of cardiopulmonary edema, BNP elevated 12,000 on admit -Fluid restrictions - 40mg lasix BID. - Continue M/W/F dialysis schedule. Pt scheduled for late afternoon dialysis today. -Strict I's and O's, daily weights, monitor on telemetry Proximal A. fibcurrently in normal sinus rhythm, patient is not currently anticoagulated - continue metoprolol tartrate 100mg BID - Amiodarone 200mg BID Elevated troponinmild and likely secondary to kidney disease vs demand ischemia leak. Downtrending Respiratory - Acute respiratory distresspulmonary congestive versus pneumonia, likely mixed -CXR suggestive of pulmonary congestion with possible pneumonia; BNP elevated at 12,000 -Lactate and procalcitonin elevated, blood cultures pending, - On empiric Zosyn to be narrowed as below, recently tx of PNA in january. 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 Will require increased glycemic control regien on d.c. -Patient was hyperglycemic in the emergency department and now on insulin drip, will transition to sliding scale and Lantus today Hypothyroidism continue Synthroid HEME - H&H stable, routinely monitor No clinical signs of bleeding ID - Sepsis urosepsis versus pulmonary source. UC pending currently hemodynamically stable without need for vasopressors -Procalcitonin and lactate elevated will trend, UA positive for bacteria and urine culture pending, CXR suggestive of multifocal pneumonia -Influenza A and B negative, MRSA negative -Blood cultures pending -Narrow abx therapy to Augmentin. Vancomycin d/mayito for MRSA negative swab LINES/IV ACCESS - Peripheral IVs DVT PROPHYLAXIS - SCDs, heparin (2) Cough: (3) Pneumonia: (4) Elevated troponin: (5) Elevated lactic acid level: (6) Respiratory distress, acute: (7) Metabolic acidosis: (8) Sepsis associated hypotension: (9) Volume overload: (10) Morbid obesity with BMI of 40.0-44.9, adult: (11) Hypoxia: Supervising Physician Co-Signing Physician Notes Patient seen and examined. Discussed with family practice resident as well as critical care MILLY. EMR was extensively reviewed. 69-year-old female with end-stage renal disease on dialysis. Admitted to the hospital with shortness of breath. There was concern that she required noninvasive positive pressure ventilation which prompted ICU admission however the patient arrived on 2 L nasal cannula has been stable overnight. Her chest x-ray is difficult to interpret due to body habitus and low lung volumes but may show some increased prominent bronchovascular markings. Atypical pulmonary edema and atypical pneumonia would be on the differential. She did have an elevated procalcitonin of unclear clinical significance in the setting of end- stage renal disease. She is been initiated on antibiotics. She is pending dialysis today. Recommendations: 1. Hypoxemic respiratory failure: Multifactorial due to fluid overload as well as potential infectious etiologies bronchitis/pneumonia. Would continue antibiotics for now. Can likely taper to oral Augmentin. Will need follow-up chest x-ray in 2 to 4 weeks. 2. End-stage renal disease on dialysis: Management per nephrology. 3. Anemia: No evidence of acute blood loss. Management per primary and nephrology. Do not recommend transfusion acutely. 4. Patient appears strict stable to transfer out of the ICU to the floor. Will sign off when she leaves the ICU. Feel free to contact us if we can be of additional assistance. Sammi Sanz is seen at the bedside this morning. She reports that she feels well this morning, and is eating breakfast at time of visit. She denies fever, chills, sweats overnight. She is breathing comfortably on room air, reports that the oxygen mask is easier than the nasal cannula because the nasal cannula frequently falls out of her nose but otherwise is not feeling short of breath on nasal cannula. Has an intermittent cough. Denies pain on deep inspiration. Denies pain, nausea, vomiting, diarrhea, constipation. Endorses Wednesday dialysis schedule, understand she is scheduled for after dialysis today. No dysuria this morning. No focal weakness. Denies neurologic change including new/tingling. No questions or concerns at time of visit. Review of Systems Review of Systems: All systems reviewed & are unremarkable except as noted in HPI & below Physical Exam Physical Exam: General: A&Ox3. NAD. Cooperative. Breathing comfortably on nasal cannula. NAD. HEENT: Atraumatic, normocephalic. No nasolabial fold flattening/increased tone. Sclera non-icteric. EoM intact without nystagmus. PERLAA. Pulm: Faint LLL rales, Bibasilar crackles L>R, trace expiratory wheeze on forced expiration in RLL. Symmetrical chest rise. No increased work of breathing. No respiratory distress. Cardiac: RRR, -mrg. Radial pulses intact and symmetrical. Abdominal: Obese, softly distended. BS present. Extremity: Left AV dialysis fistula present. PT pulse intact bilaterally and symmetrical. Bilateral lower extremity pitting edema 1-2+. Results & Data Vital Signs (Past 12 Hours) Vital Signs Temp Pulse Pulse Resp BP BP Pulse Ox 05/24/19 07:01 82 90 05/24/19 07:00 81 137/57 L 98 05/24/19 06:01 79 95 05/24/19 06:00 79 135/56 L 96 05/24/19 05:01 79 96 05/24/19 05:00 78 119/68 96 05/24/19 04:01 78 95 05/24/19 04:00 36.5 C 78 121/41 L 96 05/24/19 03:01 78 95 05/24/19 03:00 78 115/59 L 95 05/24/19 02:01 78 129/56 L 95 05/24/19 02:00 78 94 05/24/19 01:01 78 96 05/24/19 01:00 79 135/61 90 05/24/19 00:01 82 94 05/24/19 00:00 36.6 C 83 146/63 H 97 05/23/19 23:08 90 145/67 H 95 05/23/19 23:01 91 H 95 05/23/19 23:00 92 H 135/101 H 96 05/23/19 22:01 93 H 96 05/23/19 22:00 93 H 146/75 H 97 05/23/19 21:41 93 H 161/74 H 98 05/23/19 21:00 95 H 98 05/23/19 20:57 36.7 C 97 H 24 112/75 97 05/23/19 20:37 89 112/75 96 Resident Activity Tracking Resident Involvement: Resident Care Provided Care Provided: Adult Hospital Medicine (1) Respiratory failure Chronicity: acute Respiratory failure complication: hypoxia Qualified Code(s): J96.01 - Acute respiratory failure with hypoxia
[2019-05-24] MEDS ORDERED: SODIUM CHLORIDE 0.9% 1000ML 1,000 ML IV PRN (08:39)
[2019-05-24] MEDS ORDERED: EPOETIN ALFA 4,000 UNIT/ML VIAL IV ONE (08:39)
[2019-05-24] MEDS: CALCIUM ACETATE 667 MG CAP PO SCH ×3 (08:43→17:35)
[2019-05-24] MEDS: HEPARIN SOD 5,000 UNIT/0.5 ML VIAL SQ SCH ×2 (08:44→20:04)
[2019-05-24] MEDS: AMIODARONE 200 MG TAB PO SCH ×2 (08:44→20:03)
[2019-05-24] MEDS: OMEGA-3 (PURIFIED FISH OIL) 1 GM CAP PO SCH (08:45)
[2019-05-24] MEDS: METOPROLOL TARTRATE 100 MG TAB PO SCH ×2 (08:45→20:05)
[2019-05-24] MEDS: CLOPIDOGREL BISULFATE 75 MG TAB PO SCH (08:45)
[2019-05-24] MEDS: PREGABALIN 25 MG CAP PO SCH ×2 (08:54→20:12)
[2019-05-24] MEDS: FUROSEMIDE 20 MG in SYRINGE 0 ML IV SCH (08:54)
--- NOTE | 2019-05-24 08:57 | Billing Data ---
Coding Level of Care Code 15355 Subseq Hosp Care Lvl 3
[2019-05-24] MEDS ORDERED: DC IV INSULIN INFUSION 1 EA DEVI SCH (11:30)
[2019-05-24] MEDS ORDERED: INSULIN GLARGINE SOLOSTAR 100 UNITS/ML 3 ML PEN SC ONE (11:30)
--- NOTE | 2019-05-24 11:47 | Nephrology Consultation ---
Date of Consultation May 24, 2019 Assessment & Plan (1) ESRD on dialysis: 69-year-old female with end-stage renal disease secondary to hypertensive nephropathy, on hemodialysis Wednesday, , Wednesday. Admitted with left lower lobe pneumonia, currently on empiric antibiotic. Electrolyte has been acceptable. Blood pressure well controlled. Cough and shortness of breath improved. Afebrile this morning. --will schedule for dialysis today, aim for 3 L UF. Will assess for need for dialysis Wednesday otherwise planned for Wednesday as her regular schedule. --limit fluid intake less than 1 L per day, avoid high salt food --continue on phosphate binders and renal caps daily --Epogen 4000 units with dialysis today Will follow Thank you for allowing me to participate in your patient's care. It was a pleasure to see Umu (2) Secondary hyperparathyroidism (of renal origin): (3) Hypertension: (4) Anemia: (5) LLL pneumonia: History of Present Illness Attending Physician: Mitch Small MD History of Present Illness Umu Bennett is a 69-year-old Caucsian female with ESRD secondary to hypertensive nephropathy on HD TTS at [facility], admitted to the hospital with pneumonia.. Nephrology consult was requested to manage end-stage renal disease and hemodialysis while in hospital. EMR records including labs and imaging reviewed in detail during patient's visit. Umu started having cough, fever and shortness of breath starting Wednesday. She did have her dialysis Wednesday and had full treatment and completed at her dry weight. Yesterday she presented to the ER as she has been feeling progressively worse with worsening shortness of breath cough and fever. On admission chest x- ray was concerning for LL lobe pneumonia and started on Zosyn and vancomycin empirically. She is currently afebrile and already started to feel better. Has ESRD on hemodialysis Wednesday, set, Wednesday, this week schedule which in so she had dialysis Wednesday and was due for today. Currently she is slightly volume overloaded but blood pressure and electrolyte acceptable. Has DMT2 with neuropathy/nephropathy/retinopathy, PAD s/p right BKA as well as balloon angioplasty of LLE, hypertension, chronic diastolic CHF, anemia of CKD, h/o AVNRT and PSVT. Overall she feels much better. Allergies Allergy/AdvReac Type Severity Reaction Status Date / Time No Known Allergies Allergy Verified 05/23/19 16:10 Home Medications Home Medications Medication Instructions Recorded Confirmed Type calcium acetate 667 mg PO TIDM 05/14/18 05/23/19 History furosemide 40 mg PO BID 05/14/18 05/23/19 History latanoprost 1 drp OPB HS 05/14/18 05/23/19 History levothyroxine 50 mcg PO QAM 05/14/18 05/23/19 History omega-3 acid ethyl esters 1 g PO DAILY 05/14/18 05/23/19 History aspirin [Aspir-81] 81 mg PO HS 07/23/18 05/23/19 History cholecalciferol (vitamin D3) 50,000 units PO WK 07/23/18 05/23/19 History metoprolol tartrate 100 mg tablet 100 mg PO BID #180 tab 12/30/18 05/23/19 Rx clopidogrel 75 mg PO QAM 01/16/19 05/23/19 History pregabalin 25 mg capsule 25 mg PO BID #60 cap 04/24/19 05/23/19 Rx insulin glargine 100 unit/mL (3 See Rx Instructions SUBCUT 05/15/19 05/23/19 Rx mL) subcutaneous pen .COMPLEX #30 ml amiodarone 200 mg PO BID 05/23/19 05/23/19 History oxycodone-acetaminophen [Percocet] 1 tab PO DAILY PRN 05/23/19 05/23/19 History Patient History Medical History Anemia (Chronic 05/24/13) AVNRT (AV alondra re-entry tachycardia) Chronic diastolic CHF (congestive heart failure) Colon cancer screening Diabetes mellitus (Resolved) Diabetes mellitus type 2 with complications (Chronic) Diabetic nephropathy (Chronic) Diabetic peripheral neuropathy associated with type 2 diabetes mellitus (Resolved) Dialysis patient (Chronic) ESRD on dialysis (Chronic) dialysis--tue/thur/sat GI (gastrointestinal bleed) (Resolved 05/24/13) Gout History of colon cancer (Chronic) 2008--sx, chemo History of diabetic ulcer of foot (Chronic) Hyperlipidemia (Chronic) Hypertension (Chronic) Hypothyroidism (Chronic) Hypoxia (Resolved) Left posterior fascicular block (LPFB) (Chronic) Obesity Palpitations (Resolved) Paroxysmal atrial fibrillation (Chronic) on plavix follows with Kip Fletcher Paroxysmal supraventricular tachycardia (Chronic) PVD (peripheral vascular disease) (Chronic) RBBB (right bundle branch block) (Chronic) SIRS (systemic inflammatory response syndrome) (Resolved) Sleep apnea (Chronic) does not use CPAP Surgical History Arteriovenous fistula left arm 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) History of bilateral cataract extraction History of bladder surgery per pt half of bladder removed during colectomy History of colectomy 4 ft removed History of colonoscopy History of colostomy History of colostomy reversal History of tonsillectomy and adenoidectomy History of total hysterectomy with bilateral salpingo-oophorectomy (BSO) History of wisdom tooth extraction Hx of right BKA (Resolved) Family History Mother Breast cancer Grandfather Myocardial infarction Father Family history of diabetes mellitus Other No family history of adverse response to anesthesia Social History Preferred Language: Senegalese Communication Ability: Effective Visual Impairment: No Limitations Internet Developer Required: No Beliefs That Will Affect Care: None marital status: Current Living Situation: Spouse current occupational status: retired Feels Safe at Home: Yes Smoking Status: Former smoker Second Hand Exposure: No ; Hx Alcohol Use: No Hx Substance Use: No Review of Systems Review of Systems: All systems reviewed & are unremarkable except as noted in HPI & below Physical Exam Constitutional: WD/WN, vitals as above + ill appearing and + obese; no acute distress Eyes: PERRL, conjunctivae normal, anicteric sclerae ENMT: external ear and nose normal, oropharynx normal Ears: no hearing impairment Neck: trachea midline Respiratory: no cough Auscultation: + crackles and + wheezes Cardiovascular: RRR, no murmur, no edema Gastrointestinal (Abdomen): normal bowel sounds, soft, nontender, no hepatosplenomegaly Percussion/Palpation: abdomen nontender, no guarding and abdomen not rigid Musculoskeletal: Extremities: extremities normal to inspection Gait: normal gait Skin: no rashes, warm and dry Neurologic: moves all extremities and awake Psychiatric: A+Ox3, euthymic affect Results & Data Vital Signs (Past 12 Hours) Vital Signs Temp Pulse Pulse BP Pulse Ox 05/24/19 11:00 85 129/62 05/24/19 10:45 85 96/76 L 05/24/19 10:30 86 113/76 05/24/19 10:15 86 113/67 05/24/19 10:00 86 137/40 L 05/24/19 09:42 36.4 C L 86 05/24/19 07:01 82 90 05/24/19 07:00 81 137/57 L 98 05/24/19 06:01 79 95 05/24/19 06:00 79 135/56 L 96 05/24/19 05:01 79 96 05/24/19 05:00 78 119/68 96 05/24/19 04:01 78 95 05/24/19 04:00 36.5 C 78 121/41 L 96 05/24/19 03:01 78 95 05/24/19 03:00 78 115/59 L 95 05/24/19 02:01 78 129/56 L 95 05/24/19 02:00 78 94 05/24/19 01:01 78 96 05/24/19 01:00 79 135/61 90 05/24/19 00:01 82 94 05/24/19 00:00 36.6 C 83 146/63 H 97 PG Care Time/CCT Total # of Minutes Spent Total Time Spent with Patient: Total time spent is greater than 50% in coordination of care (as documented) at patient's floor/unit and/or counseling patient: (1) Anemia Anemia type: due to chronic kidney disease Chronic kidney disease stage: on chronic dialysis Qualified Code(s): N18.6 - End stage renal disease; D63.1 - Anemia in chronic kidney disease; Z99.2 - Dependence on renal dialysis (2) LLL pneumonia Pneumonia type: due to unspecified organism Qualified Code(s): J18.1 - Lobar pneumonia, unspecified organism (3) Hypertension Hypertension type: essential hypertension Qualified Code(s): I10 - Essential (primary) hypertension
--- NOTE | 2019-05-24 13:34 | Pharmacy Report ---
Pharmacy Glycemic Short Note 2 - Date of Service May 24, 2019 - Glycemic Short BSG Results (Last 24 hours): 05/23/19 05/23/19 05/23/19 15:24 21:15 23:57 Glucose 370 H* POC Glucose 279 H 278 H 05/24/19 05/24/19 05/24/19 01:01 02:01 03:03 Glucose POC Glucose 258 H 207 H 189 H 05/24/19 05/24/19 05/24/19 03:57 05:05 05:10 Glucose 124 H POC Glucose 158 H 131 H 05/24/19 05/24/19 05/24/19 06:03 07:11 08:03 Glucose POC Glucose 137 H 126 H 121 H 05/24/19 05/24/19 10:25 11:58 Glucose POC Glucose 163 H 121 H OUTPATIENT ANTIDIABETIC REGIMEN: * Lantus 36 units qam, 66 units qpm * Confirmed with patient she takes no novolog or other correctional insulin at home * A1c=10.2%: Patient is a hemodialysis patient so therefore her HbA1C does not necessarily line up with glycemic control ASSESSMENT: * Patient presenting with SOB (CHF vs infectious process) and hyperglycemia started on an insulin infusion. * As discussed with ICU providers, we will attempt to transition off the infusion today. * Insulin infusion has remained stable ~3.2 units/hr this morning * Per outpatient regimen and from past glycemic data from prior admissions, it appears the patient's evening lantus dose is more heavily weighted. I will continue dosing with this in mind. I will order a more aggressive one time dose this morning to aid in drip transition * Patient is ESRD and received HD this morning (administration of first lantus dose during dialysis session may impact efficacy somewhat) * As patient 100% basally dosed as outpatient, novolog scale will start somewhat more conservatively. I anticipate this may need to be tightened going forward * Infusion should be d/c'd when when held per calculator or 6 hrs after 1st Lantus dose given, whichever happens sooner (order will time out at 1730). If insulin infusion rate increases significantly, please contact pharmacy for further adjustments and/or drip continuation. PLAN FOR INPATIENT GLYCEMIC CONTROL: * Hold outpatient oral diabetes medications * Basal insulin * Insulin infusion (until held per calculator or 6 hours after 1st lantus dose) * Lantus 40 units SQ X 1 @~1130 * Lantus scale this evening (40 units if BSG < 140, 50 units if BSG 140-220, 60 units if BSG > 220) * Bolus insulin * NovoLog per scale ACHS or Q6hrs while NPO * Goal Range: Low 120 mg/dL - High 160 mg/dL * Correction Factor: 15 mg/dL/unit * Nutritional / Prandial insulin per carb ratio of 1 unit per 5 grams CHO consumed
[2019-05-24] MEDS: AMOXICILLIN/CLAVULANATE 500 MG TAB PO SCH (14:46)
[2019-05-24] MEDS: FUROSEMIDE 40 MG TAB PO SCH (17:35)
[2019-05-24] MEDS: ACETAMINOPHEN 325 MG TAB PO PRN (18:11)
[2019-05-24] MEDS: ASPIRIN 81 MG ECTAB PO SCH (20:04)
[2019-05-24] MEDS: LATANOPROST 0.005% OP SOLN 2.5 ML BTL OPB SCH (20:05)
--- NOTE | 2019-05-24 20:18 | Hospitalist Progress Note ---
Date of Service May 24, 2019 Assessment & Plan (1) Community acquired pneumonia: Difficult to ascertain viral versus bacterial however given double worsening illness and immunosuppressed on dialysis will be prudent to cover for bacterial infection. De-escalation of antibiotics by ICU team prior to transfer from [facility] to [facility]. We will add on doxycycline for atypical coverage, given no definitive lobar pneumonia on chest x-ray. MRSA nose swab negative, vancomycin discontinued. (2) Pulmonary edema: Suspect acute worsening due to viral/bacterial pneumonia/bronchitis as above in the setting of end-stage renal disease requiring dialysis. Management with hemodialysis as per nephrology recommendations. (3) Acute respiratory failure with hypoxia: Secondary to pneumonia and pulmonary edema as above. Based on previous ABG and January she does not retain carbon dioxide and with O2 sats around 92% has a PaO2 of 66. Therefore need to aim O2 sats greater than 94%. (4) ESRD on dialysis: Appreciate nephrology management. Dialysis plan for today, with removal of fluids due to suspected pulmonary edema on chest x-ray. Usual dialysis days Wednesday, , Wednesday - however due to holiday this week, they were planned for Wednesday. Last dialysis session on Wednesday. (5) Anemia due to end stage renal disease: Erythropoietin as managed by nephrology. Repeat CBC in a.m. (6) Congestive heart failure with LV diastolic dysfunction, NYHA class 3: Main fluid management with dialysis however will continue her home dose of Lasix 40 mg p.o. twice daily. If producing no urine Lasix can be discontinued. (7) Elevated troponin: Stable. Secondary to end-stage renal disease. (8) Diabetic neuropathy: Continue home dose of pregabalin. (9) Diabetes mellitus type 2 with complications: Appreciate ongoing glycemic control management by pharmacy. Glucose control appears acceptable on insulin drip, recommend transitioning off this in anticipation for possible discharge tomorrow. (10) Secondary hyperparathyroidism (of renal origin): Appreciate nephrology management of this. (11) Hyponatremia: Suspect hypervolemic in the setting of end-stage renal disease prior to dialysis. (12) Obesity (BMI 30-39.9): Patient denies history of obstructive sleep apnea although this is reported in the last primary care notes and she just does not want to wear the CPAP. No sleep apnea testing found in all scripts or [employer]. 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 Follows with cardiology. Continue amiodarone and metoprolol home doses. Continue on telemetry during hospitalization. Of note paroxysmal atrial fibrillation is noted in her chart however this appears to have been first charted in June 2016 from a discharge summary from [facility] as a history of paroxysmal atrial fibrillation and suspect this is an error. Will defer to the PCP to remove this from her problem list if felt appropriate. (14) Hyperlipidemia: Previously on atorvastatin which appears to have dropped off her medication list some time after discharge in January and follow-up primary care visit without an explanation. Given peripheral artery disease, significantly elevated triglycerides and total cholesterol will restart her at a previous dose of 40 mg p.o. daily. 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 Continue aspirin and Plavix. Restart atorvastatin as above for hyperlipidemia. (16) History of amputation below knee: (17) DVT prophylaxis: Heparin 5000 units SQ every 12 hours (18) Discharge planning issues: PT and OT ordered Possible discharge in the next 1 to 2 days pending improvement in respiratory status. Subjective Patient was seen in the ICU prior to transfer. She appears comfortable at rest and reports much improvement since admission. Revisited history with the patient's. She reports first feeling unwell on with nasal congestion. This developed into a cough and subsequent chill episodes on Wednesday and Wednesday with associated shortness of breath. She became more lethargic, confused and had low O2 sats so decided to come to the ER. No chest pain. No chills since admission. Discussed ongoing care with the patient and her at bedside. Review of Systems Review of Systems: All systems reviewed & are unremarkable except as noted in HPI & below Physical Exam Constitutional: well developed, + obese and comfortable; + not well nourished, no acute distress and not ill appearing Eyes: + anicteric sclerae; normal pupil size ENMT: external ear and nose normal, oropharynx normal Neck: trachea midline and + thick neck Respiratory: + retractions (Mild) and + uses accessory muscles (Mild); no respiratory distress and no cough Auscultation: + diminished lung sounds (Bibasal) and + crackles (Bibasal); no rales, no rhonchi and no wheezes Cardiovascular: Rate/Rhythm: regular rate and regular rhythm Heart Sounds: normal S1, normal S2 and + murmur Unable to assess JVD due to neck size Gastrointestinal (Abdomen): Inspection/Auscultation: normal bowel sounds Percussion/Palpation: abdomen soft; abdomen nontender, no guarding and abdomen not rigid Musculoskeletal: Well-healed right below-knee amputation, otherwise moving all extremities normally. Skin: no rashes, warm and dry (No cellulitis) Neurologic: moves all extremities and awake; not confused Psychiatric: A+Ox3, euthymic affect Lymphatic: no cervical or axillary lymphadenopathy Results & Data Vital Signs (Past 12 Hours) Vital Signs Temp Pulse Pulse Resp BP BP Pulse Ox 05/24/19 19:41 98.5 F 95 H 19 106/65 91 05/24/19 16:59 91 H 05/24/19 15:52 98.2 F 90 18 104/43 L 90 05/24/19 15:12 88 18 131/75 95 05/24/19 14:30 98.1 F 82 122/40 L 05/24/19 14:00 97.7 F 82 15 105/52 L 97 05/24/19 13:30 83 126/57 L 05/24/19 13:28 83 05/24/19 13:15 80 111/52 L 05/24/19 13:00 80 143/65 H 05/24/19 12:45 79 158/74 H 05/24/19 12:41 79 153/58 H 05/24/19 12:34 135 H 05/24/19 12:30 81 124/65 05/24/19 12:15 80 144/78 H 05/24/19 12:00 82 144/76 H 05/24/19 11:45 83 133/74 05/24/19 11:30 82 147/53 H 05/24/19 11:15 83 103/57 L 05/24/19 11:00 85 129/62 05/24/19 10:45 85 96/76 L 05/24/19 10:30 86 113/76 05/24/19 10:15 86 113/67 05/24/19 10:00 86 137/40 L 05/24/19 09:42 97.5 F L 86 05/24/19 09:00 87 110/70 94 PG Care Time/CCT Total # of Minutes Spent Total Time Spent with Patient: Total time spent is greater than 50% in coordination of care (as documented) at patient's floor/unit and/or counseling patient: (1) Diabetic neuropathy Diabetes mellitus type: type 2 Diabetes mellitus complication detail: diabetic polyneuropathy Qualified Code(s): E11.42 - Type 2 diabetes mellitus with diabetic polyneuropathy (2) Hyperlipidemia Hyperlipidemia type: mixed hyperlipidemia Qualified Code(s): E78.2 - Mixed hyperlipidemia (3) Community acquired pneumonia Laterality: unspecified laterality Qualified Code(s): J18.9 - Pneumonia, unspecified organism (4) History of amputation below knee Laterality: right Qualified Code(s): Z89.511 - Acquired absence of right leg below knee (5) Pulmonary edema Chronicity: acute Qualified Code(s): J81.0 - Acute pulmonary edema
[2019-05-24] MEDS ORDERED: DOXYCYCLINE HYCLATE 100 MG CAP PO SCH (21:00)
[2019-05-24] MEDS ORDERED: INSULIN GLARGINE SOLOSTAR 100 UNITS/ML 3 ML PEN SC SCH (21:00)
[2019-05-25] MEDS: INSULIN ASPART 100 UNITS/ML 3 ML PEN SC SCH ×6 (00:46→20:06)
[2019-05-25] MEDS: DOXYCYCLINE HYCLATE 100 MG CAP PO SCH ×2 (06:03→18:14)
[2019-05-25] MEDS: LEVOTHYROXINE SODIUM 50 MCG TABLET PO SCH (06:03)
[2019-05-25 07:05] LABS: Basophils # (auto) 0.04 K/uL (0-0.2); Basophils % (auto) 0.6 %; Eosinophils # (auto) 0.66 K/uL (0-0.5); Eosinophils % (auto) 9.2 %; Hematocrit (blood only) 31.4 % (37-47); Hemoglobin 10.4 g/dL (12.0-16.0); Immature Granulocytes # (auto) 0.03 K/uL (0.00-0.02); Immature Granulocytes % (auto) 0.4 %; Lymphocytes # (auto) 1.12 K/uL (1.2-3.4); Lymphocytes % (auto) 15.7 %; Mean Corpuscular Hemoglobin 32.9 pg (25-34); Mean Corpuscular Hgb Conc 33.1 g/dL (32-36); Mean Corpuscular Volume 99.4 fL (80-100); Mean Platelet Volume 9.6 fL (7.4-10.4); Monocytes # (auto) 0.66 K/uL (0.11-0.59); Monocytes % (auto) 9.2 %; Neutrophils # (auto) 4.64 K/uL (1.4-6.5); Neutrophils % (auto) 64.9 %; Platelet Count 155 K/uL (130-400); RDW Coefficient of Variation 16.6 % (11.5-14.5); RDW Standard Deviation 60.6 fL (36.4-46.3); Red Blood Count 3.16 M/uL (4.2-5.4); White Blood Count 7.15 K/uL (4.8-10.8)
[2019-05-25 07:47] LABS: Albumin Globulin Ratio 0.6 (0.9-2); Albumin Level 2.6 gm/dl (3.4-5.0); BUN Creatinine Ratio 3.6 (10-20); Bilirubin,Total 0.5 mg/dl (0.2-1); Creatinine Clr Calc Pharmacy 14.1 ml/min; Est GFR (African American) 10.6; Est GFR (Non-African American) 9.2; Globulin 4.7 gm/dl (2.5-4.0); Potassium 4.1 mmol/L (3.5-5.1); Total Protein 7.3 gm/dl (6.4-8.2)
[2019-05-25] MEDS: CALCIUM ACETATE 667 MG CAP PO SCH ×3 (08:20→17:13)
[2019-05-25] MEDS: METOPROLOL TARTRATE 100 MG TAB PO SCH ×2 (08:20→19:56)
[2019-05-25] MEDS: FUROSEMIDE 40 MG TAB PO SCH ×2 (08:20→17:13)
[2019-05-25] MEDS: OMEGA-3 (PURIFIED FISH OIL) 1 GM CAP PO SCH (08:20)
[2019-05-25] MEDS: AMIODARONE 200 MG TAB PO SCH ×2 (08:20→19:55)
[2019-05-25] MEDS: CLOPIDOGREL BISULFATE 75 MG TAB PO SCH (08:20)
[2019-05-25] MEDS: ATORVASTATIN 40 MG TAB PO SCH (08:21)
[2019-05-25] MEDS: HEPARIN SOD 5,000 UNIT/0.5 ML VIAL SQ SCH ×2 (08:22→19:55)
[2019-05-25] MEDS: PREGABALIN 25 MG CAP PO SCH ×2 (08:32→20:04)
[2019-05-25] MEDS ORDERED: INSULIN GLARGINE SOLOSTAR 100 UNITS/ML 3 ML PEN SC ONE (08:45)
--- NOTE | 2019-05-25 10:57 | Nephrology Progress Note ---
Date of Service May 25, 2019 Assessment & Plan (1) ESRD on dialysis: 69-year-old female with end-stage renal disease secondary to hypertensive nephropathy, on hemodialysis Wednesday, , Wednesday. Admitted with left lower lobe pneumonia, currently on empiric antibiotic. Electrolyte has been acceptable. Blood pressure well controlled. Cough and shortness of breath improved. Afebrile this morning. --will schedule brief HD for am. Patient may then resume outpatient TTS [facility] --limit fluid intake less than 1 L per day, avoid high salt food --continue on phosphate binders and renal caps daily --Epogen 4000 units with dialysis today (2) Secondary hyperparathyroidism (of renal origin): (3) Hypertension: (4) Anemia: (5) LLL pneumonia: Subjective Mrs. Bennett was seen & examined in her hospital room this morning. She was dialyzed yesterday without complication. She reports that her breathing is improved and her cough is now productive. Mrs. Bennett remains on O2 at 1 L/min NC. She is not typically on O2 at home Review of Systems Constitutional: no fever and no chills Eyes: no worsening vision and no problem reported Ear, Nose, Mouth, Throat: no problem reported Respiratory: + cough Cardiovascular: no chest pain, no palpitations and no edema Gastrointestinal: no abdominal pain, no nausea, no vomiting and no diarrhea/loose stools Genitourinary: no dysuria and no hematuria Musculoskeletal: no back pain Integumentary: no rash Neurologic: no confusion Physical Exam Constitutional: not in distress Eyes: PERRL, conjunctivae normal, anicteric sclerae ENMT: external ear and nose normal, oropharynx normal Neck: trachea midline, no thyromegaly Respiratory: normal respiratory effort; no respiratory distress Cardiovascular: Rate/Rhythm: regular rate and regular rhythm Extremities: + AV fistula (+ bruit) Gastrointestinal (Abdomen): normal bowel sounds, soft, nontender, no hepatosplenomegaly Musculoskeletal: Extremities: no cyanosis Skin: no rashes, warm and dry Neurologic: awake; not confused Results & Data Vital Signs (Past 12 Hours) Vital Signs Temp Pulse Resp BP Pulse Ox 05/25/19 08:09 36.6 C 77 18 141/78 H 96 05/25/19 04:22 36.6 C 74 18 111/48 L 97 05/25/19 00:00 80 05/24/19 23:41 36.6 C 79 20 124/44 L 96 PG Care Time/CCT Total # of Minutes Spent Total Time Spent with Patient: Total time spent is greater than 50% in coordination of care (as documented) at patient's floor/unit and/or counseling patient: (1) Hypertension Hypertension type: essential hypertension Qualified Code(s): I10 - Essential (primary) hypertension (2) Anemia Anemia type: due to chronic kidney disease Chronic kidney disease stage: on chronic dialysis Qualified Code(s): N18.6 - End stage renal disease; D63.1 - Anemia in chronic kidney disease; Z99.2 - Dependence on renal dialysis (3) LLL pneumonia Pneumonia type: due to unspecified organism Qualified Code(s): J18.1 - Lobar pneumonia, unspecified organism
--- NOTE | 2019-05-25 11:22 | Hospitalist Progress Note ---
Date of Service May 25, 2019 Assessment & Plan (1) Community acquired pneumonia: Presented with chills, cough, bilateral lower airspace opacities which could be pneumonia versus volume overload -Difficult to ascertain viral versus bacterial however, given worsening illness and immunosuppressed on dialysis, will continue to cover for bacterial infection. De-escalation of antibiotics by ICU team prior to transfer [facility] of the [facility] to [facility] -Continue also on doxycycline for atypical coverage, given no definitive lobar pneumonia on chest x-ray. MRSA nose swab negative, vancomycin has since been discontinued. Leukocytosis now resolved, remains afebrile -Remains on supplemental O2 (2) Pulmonary edema: Suspect acute worsening due to viral/bacterial pneumonia/bronchitis as above in the setting of end-stage renal disease requiring dialysis. Management with hemodialysis as per nephrology recommendations. -Continue p.o. furosemide 40 mg twice daily as per home dosing (3) Acute respiratory failure with hypoxia: Secondary to pneumonia and pulmonary edema as above. Based on previous ABG and January she does not retain carbon dioxide and with O2 sats around 92% has a PaO2 of 66. Therefore need to aim O2 sats greater than 94%. -Weaned down to 1-2 L nasal cannula -Continue with dialysis tomorrow, treatment of pneumonia -If doing well but otherwise still requiring oxygen, will need home oxygen arranged (4) ESRD on dialysis: Appreciate nephrology management. Had inpatient dialysis on 05/24 with removal of fluids due to suspected pu lmonary edema on chest x-ray. Usual dialysis days Wednesday, , Wednesday - however due to holiday this week, they were planned for Wednesday -Plan now is for shortened hemodialysis treatment tomorrow and then either discharge and outpatient dialysis on Wednesday, or continued stay and another shortened treatment inpatient on Wednesday here -We will defer to nephrology for management -Follow daily BMP (5) Anemia due to end stage renal disease: Erythropoietin as managed by nephrology. Hemoglobin increased slightly today to 10.4 (6) Congestive heart failure with LV diastolic dysfunction, NYHA class 3: Main fluid management with dialysis however will continue her home dose of Lasix 40 mg p.o. twice daily. If producing no urine Lasix can be discontinued. (7) Elevated troponin: Stable. Secondary to end-stage renal disease. (8) Diabetic neuropathy: Continue home dose of pregabalin. (9) Diabetes mellitus type 2 with complications: Appreciate ongoing glycemic control management by pharmacy -Continue basal bolus insulin Glucose is fairly well controlled (10) Secondary hyperparathyroidism (of renal origin): Appreciate nephrology management of this. (11) Hyponatremia: Suspect hypervolemic in the setting of end-stage renal disease prior to dialysis. Sodium at 133 today -Follow BMP (12) Obesity (BMI 30-39.9): Patient denies history of obstructive sleep apnea although this is reported in the last primary care notes and she just does not want to wear the CPAP. No sleep apnea testing found in all scripts or [employer]. 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 Follows with cardiology. Continue amiodarone and metoprolol home doses. Continue on telemetry during hospitalization. She did have one short burst of SVT overnight on 05/24 that was nonsustained Of note paroxysmal atrial fibrillation is noted in her chart however this appears to have been first charted in June 2016 from a discharge summary from [facility] as a history of paroxysmal atrial fibrillation and suspect this is an error. Will defer to the PCP to remove this from her problem list if felt appropriate. (14) Hyperlipidemia: Previously on atorvastatin which appears to have dropped off her me dication list some time after discharge in January and follow-up primary care visit without an explanation. Given peripheral artery disease, significantly elevated triglycerides and total cholesterol, have since restarted her at a previous dose of 40 mg p.o. daily. 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 Continue aspirin and Plavix. Restart atorvastatin as above for hyperlipidemia. (16) History of amputation below knee: On the right as above (17) Hypothyroidism: TSH 2.9 and 07/2018 -Continue home levothyroxine (18) DVT prophylaxis: Heparin 5000 units SQ every 12 hours (19) Discharge planning issues: PT and OT ordered Disposition-continued stay on medical floor with telemetry monitoring for volume overload, management of acute hypoxic respiratory failure Subjective Patient feels well. Is coughing clear with some white mucus. Denies chest pain or shortness of breath. No nausea or abdominal pain. I discussed her case with nephrology. Patient's is very concerned about her going home after dialysis tomorrow. He reports that she is very lethargic and often has diarrhea after dialysis. She denies any diarrhea now. Telemetry with normal sinus rhythm, PVCs, rates in the 70s, short burst of SVT Review of Systems Review of Systems: All systems reviewed & are unremarkable except as noted in HPI & below Physical Exam Constitutional: WD/WN, vitals as above + obese Eyes: + anicteric sclerae Neck: trachea midline, no thyromegaly Respiratory: normal respiratory effort, lungs clear to auscultation Cardiovascular: RRR, no murmur, no edema Chest (Breasts): Chest: normal inspection of chest Gastrointestinal (Abdomen): normal bowel sounds, soft, nontender, no hepatosplenomegaly Musculoskeletal: Extremities: + extremities abnormal to inspection (Right BKA with prosthesis in place), no cyanosis and no clubbing Skin: no rashes, warm and dry Neurologic: moves all extremities and awake; no focal motor deficits Psychiatric: A+Ox3, euthymic affect Results & Data Vital Signs (Past 12 Hours) Vital Signs Temp Pulse Resp BP Pulse Ox 05/25/19 08:09 36.6 C 77 18 141/78 H 96 05/25/19 04:22 36.6 C 74 18 111/48 L 97 05/25/19 00:00 80 05/24/19 23:41 36.6 C 79 20 124/44 L 96 Laboratory Results 05/25/19 05/25/19 05/25/19 Range/Units 11:43 07:46 06:35 WBC (4.8-10.8) K/uL RBC (4.2-5.4) M/uL Hgb (12.0-16.0) g/dL Hct (37-47) % MCV (80-100) fL MCH (25-34) pg MCHC (32-36) g/dL RDW Std Deviation (36.4-46.3) fL RDW Coeff of Veronica (11.5-14.5) % Plt Count (130-400) K/uL MPV (7.4-10.4) fL Immature Gran % (Auto) % Neut % (Auto) % Lymph % (Auto) % Wilcox % (Auto) % Eos % (Auto) % Baso % (Auto) % Immature Gran # (Auto) (0.00-0.02) K/uL Neut # (Auto) (1.4-6.5) K/uL Lymph # (Auto) (1.2-3.4) K/uL Wilcox # (Auto) (0.11-0.59) K/uL Eos # (Auto) (0-0.5) K/uL Baso # (Auto) (0-0.2) K/uL Sodium 133 L (136-145) mmol/L Potassium 4.1 (3.5-5.1) mmol/L Chloride 96 L (98-107) mmol/L Carbon Dioxide 30 (21-32) mmol/L Anion Gap 7.0 (3-11) BUN 16 (7-18) mg/dl Creatinine 4.54 H* D (0.6-1.2) mg/dl Est Cr Clr Drug Dosing 14.1 ml/min Est GFR ( Amer) 10.6 Est GFR (Non-Af Amer) 9.2 BUN/Creatinine Ratio 3.6 L (10-20) Glucose 148 H (70-99) mg/dl POC Glucose 254 H 168 H (70-99) Calcium 9.0 (8.5-10.1) mg/dl Total Bilirubin 0.5 (0.2-1) mg/dl AST 16 (15-37) U/L ALT 20 (12-78) U/L Alkaline Phosphatase 85 (45-117) U/L Troponin I (0-0.045) ng/ml Total Protein 7.3 (6.4-8.2) gm/dl Albumin 2.6 L (3.4-5.0) gm/dl Globulin 4.7 H (2.5-4.0) gm/dl Albumin/Globulin Ratio 0.6 L (0.9-2) 05/25/19 05/25/19 05/25/19 Range/Units 06:35 04:10 00:15 WBC 7.15 (4.8-10.8) K/uL RBC 3.16 L (4.2-5.4) M/uL Hgb 10.4 L (12.0-16.0) g/dL Hct 31.4 L (37-47) % MCV 99.4 (80-100) fL MCH 32.9 (25-34) pg MCHC 33.1 (32-36) g/dL RDW Std Deviation 60.6 H (36.4-46.3) fL RDW Coeff of Veronica 16.6 H (11.5-14.5) % Plt Count 155 (130-400) K/uL MPV 9.6 (7.4-10.4) fL Immature Gran % (Auto) 0.4 % Neut % (Auto) 64.9 % Lymph % (Auto) 15.7 % Wilcox % (Auto) 9.2 % Eos % (Auto) 9.2 % Baso % (Auto) 0.6 % Immature Gran # (Auto) 0.03 H (0.00-0.02) K/uL Neut # (Auto) 4.64 (1.4-6.5) K/uL Lymph # (Auto) 1.12 L (1.2-3.4) K/uL Wilcox # (Auto) 0.66 H (0.11-0.59) K/uL Eos # (Auto) 0.66 H (0-0.5) K/uL Baso # (Auto) 0.04 (0-0.2) K/uL Sodium (136-145) mmol/L Potassium (3.5-5.1) mmol/L Chloride (98-107) mmol/L Carbon Dioxide (21-32) mmol/L Anion Gap (3-11) BUN (7-18) mg/dl Creatinine (0.6-1.2) mg/dl Est Cr Clr Drug Dosing ml/min Est GFR ( Amer) Est GFR (Non-Af Amer) BUN/Creatinine Ratio (10-20) Glucose (70-99) mg/dl POC Glucose 165 H 209 H (70-99) Calcium (8.5-10.1) mg/dl Total Bilirubin (0.2-1) mg/dl AST (15-37) U/L ALT (12-78) U/L Alkaline Phosphatase (45-117) U/L Troponin I (0-0.045) ng/ml Total Protein (6.4-8.2) gm/dl Albumin (3.4-5.0) gm/dl Globulin (2.5-4.0) gm/dl Albumin/Globulin Ratio (0.9-2) 05/24/19 05/24/1905/24/19 Range/Units 20:17 17:14 15:08 WBC (4.8-10.8) K/uL RBC (4.2-5.4) M/uL Hgb (12.0-16.0) g/dL Hct (37-47) % MCV (80-100) fL MCH (25-34) pg MCHC (32-36) g/dL RDW Std Deviation (36.4-46.3) fL RDW Coeff of Veronica (11.5-14.5) % Plt Count (130-400) K/uL MPV (7.4-10.4) fL Immature Gran % (Auto) % Neut % (Auto) % Lymph % (Auto) % Wilcox % (Auto) % Eos % (Auto) % Baso % (Auto) % Immature Gran # (Auto) (0.00-0.02) K/uL Neut # (Auto) (1.4-6.5) K/uL Lymph # (Auto) (1.2-3.4) K/uL Wilcox # (Auto) (0.11-0.59) K/uL Eos # (Auto) (0-0.5) K/uL Baso # (Auto) (0-0.2) K/uL Sodium (136-145) mmol/L Potassium (3.5-5.1) mmol/L Chloride (98-107) mmol/L Carbon Dioxide (21-32) mmol/L Anion Gap (3-11) BUN (7-18) mg/dl Creatinine (0.6-1.2) mg/dl Est Cr Clr Drug Dosing ml/min Est GFR ( Amer) Est GFR (Non-Af Amer) BUN/Creatinine Ratio (10-20) Glucose (70-99) mg/dl POC Glucose 236 H 197 H (70-99) Calcium (8.5-10.1) mg/dl Total Bilirubin (0.2-1) mg/dl AST (15-37) U/L ALT (12-78) U/L Alkaline Phosphatase (45-117) U/L Troponin I 0.230 H* (0-0.045) ng/ml Total Protein (6.4-8.2) gm/dl Albumin (3.4-5.0) gm/dl Globulin (2.5-4.0) gm/dl Albumin/Globulin Ratio (0.9-2) PG Care Time/CCT Total # of Minutes Spent Total Time Spent with Patient: Total time spent is greater than 50% in coordination of care (as documented) at patient's floor/unit and/or counseling patient: (1) Diabetic neuropathy Diabetes mellitus complication detail: diabetic polyneuropathy Diabetes mellitus type: type 2 Qualified Code(s): E11.42 - Type 2 diabetes mellitus with diabetic polyneuropathy (2) Hyperlipidemia Hyperlipidemia type: mixed hyperlipidemia Qualified Code(s): E78.2 - Mixed hyperlipidemia (3) Community acquired pneumonia Laterality: unspecified laterality Qualified Code(s): J18.9 - Pneumonia, unspecified organism (4) Pulmonary edema Chronicity: acute Qualified Code(s): J81.0 - Acute pulmonary edema (5) History of amputation below knee Laterality: right Qualified Code(s): Z89.511 - Acquired absence of right leg below knee (6) Hypothyroidism Hypothyroidism type: acquired Qualified Code(s): E03.9 - Hypothyroidism, unspecified
[2019-05-25] MEDS: AMOXICILLIN/CLAVULANATE 500 MG TAB PO SCH (12:52)
--- NOTE | 2019-05-25 14:43 | Pharmacy Report ---
Pharmacy Glycemic Short Note 2 - Date of Service May 25, 2019 - Glycemic Short BSG Results (Last 24 hours): 05/24/19 05/24/19 05/25/19 17:14 20:17 00:15 Glucose POC Glucose 197 H 236 H 209 H 05/25/19 05/25/19 05/25/19 04:10 06:35 07:46 Glucose 148 H POC Glucose 165 H 168 H 05/25/19 11:43 Glucose POC Glucose 254 H OUTPATIENT ANTIDIABETIC REGIMEN: * Lantus 36 units qam, 66 units qpm * Confirmed with patient she takes no novolog or other correctional insulin at home * A1c=10.2%: Patient is a hemodialysis patient, so therefore HbA1C is not necessarily indicative of recent glycemic control ASSESSMENT: 05/25/19 * Patient was transitioned from IV --> SQ insulin yesterday. * Basal insulin dosed slightly more aggressively than past admissions. Pre- lunch BSG was still elevated. * Will continue to adjust as needed. * Patient has been receiving HD sessions slightly off-schedule from her normal routine this admission. 05/24/19 * Patient presenting with SOB (CHF vs infectious process) and hyperglycemia started on an insulin infusion. * As discussed with ICU providers, we will attempt to transition off the infusion today. * Insulin infusion has remained stable ~3.2 units/hr this morning * Per outpatient regimen and from past glycemic data from prior admissions, it appears the patient's evening lantus dose is more heavily weighted. I will continue dosing with this in mind. I will order a more aggressive one time dose this morning to aid in drip transition * Patient is ESRD and received HD this morning (administration of first lantus dose during dialysis session may impact efficacy somewhat) * As patient 100% basally dosed as outpatient, novolog scale will start somewhat more conservatively. I anticipate this may need to be tightened going forward * Infusion should be d/c'd when when held per calculator or 6 hrs after 1st Lantus dose given, whichever happens sooner (order will time out at 1730). If insulin infusion rate increases significantly, please contact pharmacy for further adjustments and/or drip continuation. PLAN FOR INPATIENT GLYCEMIC CONTROL: * Hold outpatient oral diabetes medications * Basal insulin * Lantus 30 units this morning * Lantus 55-65 units tonight, per scale * Bolus insulin * NovoLog per scale ACHS or Q6hrs while NPO * Goal Range: Low 120 mg/dL - High 160 mg/dL * Correction Factor: 10 mg/dL/unit * Nutritional / Prandial insulin per carb ratio of 1 unit per 4 grams CHO consumed
[2019-05-25] MEDS: ASPIRIN 81 MG ECTAB PO SCH (19:56)
[2019-05-25] MEDS: LATANOPROST 0.005% OP SOLN 2.5 ML BTL OPB SCH (19:57)
[2019-05-25] MEDS: OXYCODONE/ACETAMINOPHEN 5mg/325mg TAB PO PRN (20:04)
[2019-05-25] MEDS: INSULIN GLARGINE SOLOSTAR 100 UNITS/ML 3 ML PEN SC SCH (20:05)
[2019-05-26] MEDS: LEVOTHYROXINE SODIUM 50 MCG TABLET PO SCH (06:13)
[2019-05-26] MEDS ORDERED: SODIUM CHLORIDE 0.9% 1000ML 1,000 ML IV PRN (07:00)
[2019-05-26] MEDS ORDERED: HEPARIN SOD (PORCINE) 1000 UNIT/ML 10 ML VIAL IV ONE (07:00)
[2019-05-26 07:17] LABS: BUN Creatinine Ratio 3.6 (10-20); Calcium 8.9 mg/dl (8.5-10.1); Creatinine Clr Calc Pharmacy 10.5 ml/min; Est GFR (African American) 7.4; Est GFR (Non-African American) 6.4; Potassium 4.2 mmol/L (3.5-5.1)
[2019-05-26] MEDS: DOXYCYCLINE HYCLATE 100 MG CAP PO SCH ×2 (08:12→18:48)
[2019-05-26] MEDS: HEPARIN SOD 5,000 UNIT/0.5 ML VIAL SQ SCH ×2 (08:13→21:21)
[2019-05-26] MEDS: AMIODARONE 200 MG TAB PO SCH ×2 (08:13→21:21)
[2019-05-26] MEDS: CALCIUM ACETATE 667 MG CAP PO SCH ×3 (08:13→17:09)
[2019-05-26] MEDS: OMEGA-3 (PURIFIED FISH OIL) 1 GM CAP PO SCH (08:13)
[2019-05-26] MEDS: FUROSEMIDE 40 MG TAB PO SCH ×2 (08:13→17:09)
[2019-05-26] MEDS: INSULIN GLARGINE SOLOSTAR 100 UNITS/ML 3 ML PEN SC SCH ×2 (08:14→21:22)
[2019-05-26] MEDS: METOPROLOL TARTRATE 100 MG TAB PO SCH ×2 (08:14→21:21)
[2019-05-26] MEDS: CLOPIDOGREL BISULFATE 75 MG TAB PO SCH (08:14)
[2019-05-26] MEDS: ATORVASTATIN 40 MG TAB PO SCH (08:14)
[2019-05-26] MEDS: INSULIN ASPART 100 UNITS/ML 3 ML PEN SC SCH ×4 (08:15→21:22)
[2019-05-26] MEDS: PREGABALIN 25 MG CAP PO SCH ×2 (08:20→21:20)
--- NOTE | 2019-05-26 09:41 | Nephrology Progress Note ---
Date of Service May 26, 2019 Assessment & Plan (1) ESRD on dialysis: 69-year-old female with end-stage renal disease secondary to hypertensive nephropathy, on hemodialysis Wednesday, , Wednesday. Admitted with left lower lobe pneumonia, currently on empiric antibiotic. --Brief HD treatment this morning, then resume outpatient TTS schedule --limit fluid intake less than 1 L per day, avoid high salt food --continue on phosphate binders and renal caps daily --Epogen 4000 units with dialysis today (2) Hypertension: --Blood pressure controlled. No change to current medical regimen (3) LLL pneumonia: --Agree w/ Augmentin 500 mg daily (4) Secondary hyperparathyroidism (of renal origin): (5) Anemia: Subjective Mrs. Bennett was seen & examined in her hospital room this morning. She reports that her breathing is improved. Mrs. Bennett remains on O2 at 1 L/min NC. She is not typically on O2 at home Review of Systems Constitutional: no fever and no chills Eyes: no worsening vision and no problem reported Ear, Nose, Mouth, Throat: no problem reported Respiratory: + cough Cardiovascular: no chest pain, no palpitations and no edema Gastrointestinal: no abdominal pain, no nausea, no vomiting and no diarrhea/loose stools Genitourinary: no dysuria and no hematuria Musculoskeletal: no back pain Integumentary: no rash Neurologic: no confusion Physical Exam Constitutional: not in distress Eyes: PERRL, conjunctivae normal, anicteric sclerae ENMT: external ear and nose normal, oropharynx normal Neck: trachea midline, no thyromegaly Respiratory: normal respiratory effort; no respiratory distress Cardiovascular: Rate/Rhythm: regular rate and regular rhythm Extremities: + AV fistula (+ bruit) Gastrointestinal (Abdomen): normal bowel sounds, soft, nontender, no hepatosplenomegaly Musculoskeletal: Extremities: no cyanosis Skin: no rashes, warm and dry Neurologic: awake; not confused Results & Data Vital Signs (Past 12 Hours) Vital Signs Temp Pulse Pulse Pulse Resp BP BP 05/26/19 08:10 36.4 C L 78 16 139/77 05/26/19 07:53 36.4 C L 78 18 139/77 05/26/19 04:02 36.8 C 77 22 142/69 H 05/26/19 00:06 36.8 C 78 17 140/60 05/26/19 00:00 77 05/25/19 21:39 36.3 C L 84 19 149/71 H Pulse Ox 05/26/19 08:10 98 05/26/19 07:53 98 05/26/19 04:02 96 05/26/19 00:06 97 05/26/19 00:00 05/25/19 21:39 96 Laboratory Results Laboratory Tests 05/25/19 05/25/19 05/26/19 06:35 06:35 06:05 WBC 7.15 Hgb 10.4 L Hct 31.4 L Plt Count 155 Sodium 133 L 136 Potassium 4.1 4.2 Chloride 96 L 98 Carbon Dioxide 30 29 BUN 16 23 H Creatinine 4.54 H* D 6.12 H* D Glucose 148 H 115 H PG Care Time/CCT Total # of Minutes Spent Total Time Spent with Patient: Total time spent is greater than 50% in coordination of care (as documented) at patient's floor/unit and/or counseling patient: (1) Hypertension Hypertension type: essential hypertension Qualified Code(s): I10 - Essential (primary) hypertension (2) Anemia Anemia type: due to chronic kidney disease Chronic kidney disease stage: on chronic dialysis Qualified Code(s): N18.6 - End stage renal disease; D63.1 - Anemia in chronic kidney disease; Z99.2 - Dependence on renal dialysis (3) LLL pneumonia Pneumonia type: due to unspecified organism Qualified Code(s): J18.1 - Lobar pneumonia, unspecified organism
--- NOTE | 2019-05-26 10:49 | Hospitalist Progress Note ---
Date of Service May 26, 2019 Assessment & Plan (1) Community acquired pneumonia: Presented with chills, cough, bilateral lower airspace opacities which could be pneumonia versus volume overload -Difficult to ascertain viral versus bacterial however, given worsening illness and immunosuppressed on dialysis, will continue to cover for bacterial infection. De-escalation of antibiotics by ICU team prior to transfer out of the ICU from [facility] to [facility] -Continue also on doxycycline for atypical coverage, given no definitive lobar pneumonia on chest x-ray. -Would complete a 7-day course of each MRSA nose swab negative, vancomycin has since been discontinued. Leukocytosis now resolved, remains afebrile -Remains on supplemental O2 and with crackles in the right base (2) Pulmonary edema: Suspect acute worsening due to viral/bacterial pneumonia/bronchitis as above in the setting of end-stage renal disease requiring dialysis. Management with hemodialysis as per nephrology recommendations. -Continue p.o. furosemide 40 mg twice daily as per home dosing -Plan for hemodialysis again on 05/27 (3) Acute respiratory failure with hypoxia: Secondary to pneumonia and pulmonary edema as above. Based on previous ABG and January she does not retain carbon dioxide and with O2 sats around 92% has a PaO2 of 66. Therefore need to aim O2 sats greater than 94%. -Weaned down to 1-2 L nasal cannula -Continue with dialysis tomorrow, treatment of pneumonia -If doing well but otherwise still requiring oxygen, will need home oxygen arranged (4) ESRD on dialysis: Appreciate nephrology management. Had inpatient dialysis on 05/24 with removal of fluids due to suspected pulmonary edema on chest x-ray. Usual dialysis days Wednesday, , Wednesday She did receive hemodialysis here on Wednesday and will receive it again on Wednesday prior to discharge -Follow daily BMP (5) Anemia due to end stage renal disease: Erythropoietin as managed by nephrology. Hemoglobin increased slightly to 10.4 (6) Congestive heart failure with LV diastolic dysfunction, NYHA class 3: Main fluid management with dialysis however will continue her home dose of Lasix 40 mg p.o. twice daily. If producing no urine Lasix can be discontinued. (7) Elevated troponin: Stable. Secondary to end-stage renal disease. (8) Diabetic neuropathy: Continue home dose of pregabalin. (9) Diabetes mellitus type 2 with complications: Appreciate ongoing glycemic control management by pharmacy -Continue basal bolus insulin here She does not take NovoLog at home as her pre-meal glucose readings are usually less than 120 She is on extremely high doses of basal insulin at home and her hemoglobin A1c is quite high at 10.2%-however, this could be an inaccurate reading in a hemodialysis patient -She should likely have lowered Lantus dosing and add on NovoLog with each meal for improved glucose control at home-appreciate pharmacy recommendations at the time of discharge (10) Secondary hyperparathyroidism (of renal origin): Appreciate nephrology management of this. (11) Hyponatremia: Suspect hypervolemic in the setting of end-stage renal disease prior to dialysis. Sodium at 136 today -Follow BMP (12) Obesity (BMI 30-39.9): Patient denies history of obstructive sleep apnea although this is reported in the last primary care notes and she just does not want to wear the CPAP. No sleep apnea testing found in all scripts or [employer]. 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 Follows with cardiology. Continue amiodarone and metoprolol home doses. Continue on telemetry during hospitalization. She did have one short burst of SVT overnight on 05/24 that was nonsustained Of note paroxysmal atrial fibrillation is noted in her chart however this appears to have been first charted in June 2016 from a discharge summary from [facility] as a history of paroxysmal atrial fibrillation and suspect this is an error. Will defer to the PCP to remove this from her problem list if felt appropriate. (14) Hyperlipidemia: Previously on atorvastatin which appears to have dropped off her medication list some time after discharge in January and follow-up primary care visit without an explanation. Given peripheral artery disease, significantly elevated triglycerides and total cholesterol, have since restarted her at a previous dose of 40 mg p.o. daily. 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 Continue aspirin and Plavix. Restart atorvastatin as above for hyperlipidemia. (16) History of amputation below knee: On the right as above (17) Hypothyroidism: TSH 2.9 and 07/2018 -Continue home levothyroxine (18) DVT prophylaxis: Heparin 5000 units SQ every 12 hours (19) Discharge planning issues: PT and OT ordered Disposition-continued stay on medical floor with telemetry monitoring for volume overload, management of acute hypoxic respiratory failure Plan is for hemodialysis on Wednesday and then hopeful for discharge after that May need a two-step prior to discharge Subjective Patient reports her cough is less today. Feeling less short of breath. No further diarrhea since admission. Blood sugars have been a little bit labile here. She reports that she does not use NovoLog at home but has very high levels of basal insulin Telemetry with normal sinus rhythm, rates in the 70s to 80s, PVCs, first-degree AV block Patient and her are still concerned about her going home today and would like her to stay until tomorrow and receive dialysis here. She is still requiring oxygen. Review of Systems Review of Systems: All systems reviewed & are unremarkable except as noted in HPI & below Physical Exam Constitutional: WD/WN, vitals as above + obese Eyes: + anicteric sclerae Neck: trachea midline, no thyromegaly Respiratory: Auscultation: + crackles (At the right base); no rhonchi and no wheezes Cardiovascular: RRR, no murmur, no edema Chest (Breasts): Chest: normal inspection of chest Gastrointestinal (Abdomen): normal bowel sounds, soft, nontender, no hepatosplenomegaly Musculoskeletal: Extremities: + extremities abnormal to inspection (Right BKA ), no cyanosis and no clubbing Skin: no rashes, warm and dry Neurologic: moves all extremities and awake; no focal motor deficits Psychiatric: A+Ox3, euthymic affect Results & Data Vital Signs (Past 12 Hours) Vital Signs Temp Pulse Pulse Pulse Resp BP BP 05/26/19 08:10 36.4 C L 78 16 139/77 05/26/19 07:53 36.4 C L 78 18 139/77 05/26/19 04:02 36.8 C 77 22 142/69 H 05/26/19 00:06 36.8 C 78 17 140/60 05/26/19 00:00 77 Pulse Ox 05/26/19 08:10 98 05/26/19 07:53 98 05/26/19 04:02 96 05/26/19 00:06 97 05/26/19 00:00 Laboratory Results 05/26/19 05/26/19 05/26/19 Range/Units 16:39 11:31 07:41 Sodium (136-145) mmol/L Potassium (3.5-5.1) mmol/L Chloride (98-107) mmol/L Carbon Dioxide (21-32) mmol/L Anion Gap (3-11) BUN (7-18) mg/dl Creatinine (0.6-1.2) mg/dl Est Cr Clr Drug Dosing ml/min Est GFR ( Amer) Est GFR (Non-Af Amer) BUN/Creatinine Ratio (10-20) Glucose (70-99) mg/dl POC Glucose 142 H 165 H 121 H (70-99) Calcium (8.5-10.1) mg/dl 05/26/19 05/25/19 05/25/19 Range/Units 06:05 20:56 20:04 Sodium 136 (136-145) mmol/L Potassium 4.2 (3.5-5.1) mmol/L Chloride 98 (98-107) mmol/L Carbon Dioxide 29 (21-32) mmol/L Anion Gap 9.0 (3-11) BUN 23 H (7-18) mg/dl Creatinine 6.12 H* D (0.6-1.2) mg/dl Est Cr Clr Drug Dosing 10.5 ml/min Est GFR ( Amer) 7.4 Est GFR (Non-Af Amer) 6.4 BUN/Creatinine Ratio 3.6 L (10-20) Glucose 115 H (70-99) mg/dl POC Glucose 141 H 137 H (70-99) Calcium 8.9 (8.5-10.1) mg/dl PG Care Time/CCT Total # of Minutes Spent Total Time Spent with Patient: Total time spent is greater than 50% in coordination of care (as documented) at patient's floor/unit and/or counseling patient: (1) Diabetic neuropathy Diabetes mellitus complication detail: diabetic polyneuropathy Diabetes mellitus type: type 2 Qualified Code(s): E11.42 - Type 2 diabetes mellitus with diabetic polyneuropathy (2) Hyperlipidemia Hyperlipidemia type: mixed hyperlipidemia Qualified Code(s): E78.2 - Mixed hyperlipidemia (3) Hypothyroidism Hypothyroidism type: acquired Qualified Code(s): E03.9 - Hypothyroidism, unspecified (4) Community acquired pneumonia Laterality: unspecified laterality Qualified Code(s): J18.9 - Pneumonia, unspecified organism (5) Pulmonary edema Chronicity: acute Qualified Code(s): J81.0 - Acute pulmonary edema (6) History of amputation below knee Laterality: right Qualified Code(s): Z89.511 - Acquired absence of right leg below knee
[2019-05-26] MEDS: ACETAMINOPHEN 325 MG TAB PO PRN (11:22)
[2019-05-26] MEDS: AMOXICILLIN/CLAVULANATE 500 MG TAB PO SCH (14:02)
[2019-05-26] MEDS: OXYCODONE/ACETAMINOPHEN 5mg/325mg TAB PO PRN (21:20)
[2019-05-26] MEDS: ASPIRIN 81 MG ECTAB PO SCH (21:21)
[2019-05-26] MEDS: LATANOPROST 0.005% OP SOLN 2.5 ML BTL OPB SCH (21:24)
[2019-05-27] MEDS: LEVOTHYROXINE SODIUM 50 MCG TABLET PO SCH (05:33)
[2019-05-27] MEDS ORDERED: SODIUM CHLORIDE 0.9% 1000ML 1,000 ML IV PRN (07:00)
[2019-05-27] MEDS ORDERED: EPOETIN ALFA 4,000 UNIT/ML VIAL IV ONE (07:00)
[2019-05-27] MEDS ORDERED: HEPARIN SOD (PORCINE) 1000 UNIT/ML 10 ML VIAL IV ONE (07:00)
[2019-05-27 07:28] LABS: BUN Creatinine Ratio 4.6 (10-20); Calcium 9.2 mg/dl (8.5-10.1); Creatinine Clr Calc Pharmacy 8.4 ml/min; Est GFR (African American) 5.6; Est GFR (Non-African American) 4.8; Potassium 4.4 mmol/L (3.5-5.1)
[2019-05-27] MEDS: HEPARIN SOD 5,000 UNIT/0.5 ML VIAL SQ SCH (08:10)
[2019-05-27] MEDS: INSULIN ASPART 100 UNITS/ML 3 ML PEN SC SCH ×3 (08:11→17:07)
[2019-05-27] MEDS: INSULIN GLARGINE SOLOSTAR 100 UNITS/ML 3 ML PEN SC SCH (08:11)
--- NOTE | 2019-05-27 10:19 | Nephrology Progress Note ---
Date of Service May 27, 2019 Assessment & Plan (1) ESRD on dialysis: 69-year-old female with end-stage renal disease secondary to hypertensive nephropathy, on hemodialysis Wednesday, , Wednesday. Admitted with left lower lobe pneumonia, currently on empiric antibiotic. --HD today to resume TTS schedule and continue UF. Outpatient EDW 106 kg. Patient remains 3 kg above EDW --limit fluid intake less than 1 L per day, avoid high salt food --If discharge is anticipated today, please advise patient to contact [facility] to resume TTS outpatient HD (2) Hypertension: --Blood pressure is elevated. Expect this will improve w/ UF (3) LLL pneumonia: --Agree w/ Augmentin 500 mg daily for empiric treatment of PNA (4) Secondary hyperparathyroidism (of renal origin): (5) Anemia: Subjective Mrs. Bennett was seen & examined in her hospital room this morning. She reports that her breathing is improved. She is anxious to return home. She voiced no new medical concerns. Review of Systems Constitutional: no fever and no chills Eyes: no worsening vision and no problem reported Ear, Nose, Mouth, Throat: no problem reported Respiratory: no cough Cardiovascular: no chest pain, no palpitations and no edema Gastrointestinal: no abdominal pain, no nausea, no vomiting and no diarrhea/loose stools Genitourinary: no dysuria and no hematuria Musculoskeletal: no back pain Integumentary: no rash Neurologic: no dizziness and no confusion Physical Exam Constitutional: not in distress Eyes: PERRL, conjunctivae normal, anicteric sclerae ENMT: external ear and nose normal, oropharynx normal Neck: trachea midline, no thyromegaly Respiratory: normal respiratory effort; no respiratory distress Cardiovascular: Rate/Rhythm: regular rate and regular rhythm Extremities: + AV fistula (+ bruit) Gastrointestinal (Abdomen): normal bowel sounds, soft, nontender, no hepatosplenomegaly Musculoskeletal: Extremities: no cyanosis Skin: no rashes, warm and dry Neurologic: awake; not confused Results & Data Vital Signs (Past 12 Hours) Vital Signs Temp Pulse Pulse Pulse Pulse Resp BP 05/27/19 10:00 77 178/47 H 05/27/19 09:40 77 169/57 H 05/27/19 09:20 76 146/71 H 05/27/19 09:00 77 149/52 H 05/27/19 08:49 36.9 C 78 80 05/27/19 07:00 36.8 C 74 20 05/27/19 04:19 36.5 C 74 18 05/27/19 01:09 81 05/27/19 00:24 36.7 C 78 19 05/26/19 23:37 36.6 C 77 20 BP Pulse Ox 05/27/19 10:00 05/27/19 09:40 05/27/19 09:20 05/27/19 09:00 05/27/19 08:49 05/27/19 07:00 130/93 97 05/27/19 04:19 145/85 H 97 05/27/19 01:09 05/27/19 00:24 133/86 95 05/26/19 23:37 141/55 H 90 Laboratory Results Laboratory Tests 05/27/19 06:18 Sodium 133 L Potassium 4.4 Chloride 96 L Carbon Dioxide 27 BUN 35 H D Creatinine 7.72 H* D Glucose 145 H PG Care Time/CCT Total # of Minutes Spent Total Time Spent with Patient: Total time spent is greater than 50% in coordination of care (as documented) at patient's floor/unit and/or counseling patient: (1) Hypertension Hypertension type: essential hypertension Qualified Code(s): I10 - Essential (primary) hypertension (2) LLL pneumonia Pneumonia type: due to unspecified organism Qualified Code(s): J18.1 - Lobar pneumonia, unspecified organism (3) Anemia Anemia type: due to chronic kidney disease Chronic kidney disease stage: on chronic dialysis Qualified Code(s): N18.6 - End stage renal disease; D63.1 - Anemia in chronic kidney disease; Z99.2 - Dependence on renal dialysis
[2019-05-27] MEDS: CALCIUM ACETATE 667 MG CAP PO SCH ×3 (10:45→17:08)
--- NOTE | 2019-05-27 11:19 | Pharmacy Report ---
Glycemic Control Progress Note - Date of Service May 27, 2019 - Scope Glycemic Pharmacist consulted for glycemic control to write orders per [facility] inpatient glycemic control protocol. - Objective Accuchecks BSG(last 24 hours):: 05/26/19 05/26/19 05/26/19 11:31 16:39 20:53 Glucose POC Glucose 165 H 142 H 169 H 05/27/19 05/27/19 06:18 07:22 Glucose 145 H POC Glucose 153 H HbA1c:: Hemoglobin A1c 10.2 % (4.5-5.6) H 05/24/19 05:10 - Recent Pertinent Medications The patient is currently receiving: * Basal insulin: Lantus 25 units in the morning and 65 units in the evening (55 units if blood sugar [id number] mg/dL) * Correctional Insulin: Novolog Correction per scale ACHS Goal Range: Low 120 mg/dL - High 160 mg/dL Correction Factor: 10 mg/dL/unit * Prandial insulin: Per carb ratio of 1 unit per 4 grams CHO consumed - Outpatient Anti-Diabetic Meds Lantus 36 units in the morning and 66 units in the evening - Assessment & Plan ASSESSMENT: * See progress note from 05/24/19 for more background info, in short: * Pt receiving SQ basal bolus insulin regimen for hyperglycemia secondary to baseline DM (outpatient regimen on hold). Currently receiving doxycycline and Augmentin. * Patient is currently receiving an average of 132 units of insulin per day * 90 units of basal insulin * 42 units of prandial/correctional insulin * BSGs ranging 121 - 169 mg/dl over the past 24hrs * Changes needed to insulin regimen: * AM Fasting BSG = 153 mg/dl. This is in goal range for patient based on inpatient targets and co-morbidities. Basal insulin will be continued. Do not feel comfortable increasing basal at this point since patient's regimen is very basal heavy. * Post-prandial BSGs are in goal range. Patient may require a slight tightening of carbohydrate ratio but will continue for now. * Total daily dose = ~130 units. PLAN FOR INPATIENT GLYCEMIC CONTROL: * Continuing Lantus 25 units in AM and 65 units in PM (55 units if blood sugar under 140 mg/dL) units SQ * Continuing correction factor of 10 mg/dl/unit * Continuing carb ratio of 1 unit per 4 grams CHO consumed * Continuing goal range of Low 110 mg/dL - High 140 mg/dL * Please note that the plan above was derived based on current level of insulin resistance and hospital stress. These recommendations are appropriate for inpatient admission only. Plan of care upon discharge will need to be reassessed to avoid potential outpatient hypo/hyperglycemia. Thank you.
[2019-05-27] MEDS: HEPARIN SOD (PORCINE) 1000 UNIT/ML 10 ML VIAL IV SCH (12:15)
[2019-05-27] MEDS: FUROSEMIDE 40 MG TAB PO SCH ×2 (13:46→17:04)
[2019-05-27] MEDS: CLOPIDOGREL BISULFATE 75 MG TAB PO SCH (13:46)
[2019-05-27] MEDS: AMIODARONE 200 MG TAB PO SCH (13:46)
[2019-05-27] MEDS: ATORVASTATIN 40 MG TAB PO SCH (13:46)
[2019-05-27] MEDS: DOXYCYCLINE HYCLATE 100 MG CAP PO SCH ×2 (13:46→17:04)
[2019-05-27] MEDS: OMEGA-3 (PURIFIED FISH OIL) 1 GM CAP PO SCH (13:46)
[2019-05-27] MEDS: AMOXICILLIN/CLAVULANATE 500 MG TAB PO SCH (13:46)
[2019-05-27] MEDS: PREGABALIN 25 MG CAP PO SCH (13:46)
[2019-05-27] MEDS: METOPROLOL TARTRATE 100 MG TAB PO SCH (13:46)
--- NOTE | 2019-05-27 16:44 | Discharge Summary ---
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 Patient usually does not use oxygen at home. Patient had her regular hemodialysis yesterday and her next hemodialysis is scheduled for tomorrow due to holiday schedule. Patient has been stated patient became increasingly short of breath started to feel cold and chills, and he states that past patient came from the dialysis and developed a cough. She also had some sinus congestion with drainage. The cough is persistent and nonproductive. Today patient became confused this is the time when he called 911. When I was examining the patient she was already in better condition. She was able to talk even though she was still on BiPAP. Patient stated that she is okay with intubation but indicates that she becomes unresponsive he does not want CPR to be done. She also does not want any other medical intervention to be done except for intubation. Patient denies headache, abdominal pain, frequency, urgency, hematuria, dysuria. Labs are reviewed: WBCs 12.24, hemoglobin 11.5, hematocrit 34.4, platelets 156, PT 11.9, INR 1.2, APTT 28.7. VBG shows pH 7.46, P CO2 40, ABG PO2 66 ABG HCO3 28. Patient is above 91% on 3 L of oxygen. Sodium 129, potassium 4.2, chloride 90, BUN 22, creatinine 5.38, GFR 7.5, lactate 3.4--> repeated 3. Troponin 0 0.36, alkaline phosphatase 136, protein 8.5, globulin 5.2, procalcitonin 1.55. Chest x-ray significant for cardiomegaly with evidence of congestive failure. Bilateral a space opacity is likely present a component of interstitial edema. There is evidence of a superimposed infectious/inflammatory pneumonitis. We could not rule out pneumonia especially in setting of sepsis and elevated lactate and procalcitonin. The case was discussed and patient is going to be admitted to ICU for the further evaluation and management of acute respiratory failure, acute congestive heart failure, pneumonia, compensated metabolic ac idosis ,hyponatremia and other comorbidities. Admission Exam Per Admitting Provider Constitutional: WD/WN, vitals as above well developed and + morbidly obese Eyes: PERRL, conjunctivae normal, anicteric sclerae ENMT: external ear and nose normal, oropharynx normal Neck: trachea midline, no thyromegaly Respiratory: + respiratory distress Auscultation: + crackles, + wheezes and + bronchovesicular breath sounds Cardiovascular: RRR, no murmur, no edema Rate/Rhythm: + irregularly irregular Heart Sounds: normal S1, normal S2 and + murmur Palpation: + palpable S3 Vessels: + JVD and dorsalis pedis pulses present Gastrointestinal (Abdomen): normal bowel sounds, soft, nontender, no hepatosplenomegaly Musculoskeletal: no cyanosis or clubbing, extremities motor strength 5/5 Skin: no rashes, warm and dry Neurologic: patellar DTR's 2+ bilat, sensation intact Psychiatric: A+Ox3, euthymic affect Lymphatic: no cervical or axillary lymphadenopathy Principal Diagnosis Acute hypoxic respiratory failure Community Acquired Pneumonia Pulmonary edema (due to end stage renal failure on dialysis) Discharge Exam Constitutional well developed, + obese and comfortable; + not well nourished, no acute distress and not ill appearing Eyes + anicteric sclerae; normal pupil size ENMT external ear and nose normal, oropharynx normal Neck trachea midline, + short neck and + thick neck Respiratory normal respiratory effort; no respiratory distress, no labored breathing, no retractions and does not use accessory muscles Auscultation: + crackles (Right base); no diminished lung sounds, no rales, no rhonchi and no wheezes Cardiovascular Rate/Rhythm: regular rate and regular rhythm Heart Sounds: normal S1 and normal S2; no murmur Gastrointestinal (Abdomen) Inspection/Auscultation: normal bowel sounds Percussion/Palpation: abdomen soft; abdomen nontender, no guarding and abdomen not rigid Skin no rashes, warm and dry Neurologic moves all extremities and awake; not confused Right below-knee amputation Psychiatric A+Ox3, euthymic affect Discharge Data Allergies Allergy/AdvReac Type Severity Reaction Status Date / Time No Known Allergies Allergy Verified 05/23/19 16:10 Consultations 05/23/19 16:07 ED Decision to Admit Stat 05/23/19 20:39 Consult Lay Out Helper Routine Consult Nephrology Routine Hospital Course (1) Community acquired pneumonia: Mrs. Bennett is a 69-year-old female who was admitted to [facility] from May 23-2018 due to shortness of breath and low oxygen levels. A postnasal drip appeared to proceed this and likely predisposed her to community-acquired pneumonia for which she was diagnosed. Initially treated with broad-spectrum antibiotics requiring BiPAP for acute hypoxic respiratory failure she rapidly rebounded and was switched to p.o. Augmentin and doxycycline. She will underwent her usual dialysis regimen while here, although more fluid was taken off than usual as she appeared to have some pulmonary edema. Upon discharge her oxygen saturation was 88% on room air therefore she was prescribed 2 L of oxygen to be used at rest. This can likely be weaned off as an outpatient as her pneumonia resolves. She is routinely more hypoxic in the mornings and suspect she has obstructive sleep apnea although no recent sleep study was found. She is unsure why her CPAP was ever stopped, she believes it was stopped when she went on dialysis as her blood pressure improved. She may benefit from a sleep study once fully recovered from this pneumonia. With regard to her diabetes her HbA1c was elevated at 10.2. However she reports very good glucose control in the 110s at home therefore no changes to her insulin regimen were made at this time. If her glucose levels are truly this low in the morning and at night I suspect they peak during the daytime and she may have better control with reintroducing her NovoLog with meals. Consider continuous glucose monitor if her insurance covers. Of note she has been prescribed atorvastatin for years. She thinks she has not taken this for the last 2 years although it is consistently on her medication list with the exception it dropped off after her last discharge. Given significantly elevated cholesterol and triglycerides in the setting of peripheral artery disease her atorvastatin was restarted and recommended she discuss this further with her PCP. 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 She did have one short burst of SVT overnight on 05/24 that was nonsustained and asymptomatic. Of note paroxysmal atrial fibrillation is noted in her chart however this appears to have been first charted in June 2016 from a discharge summary from [facility] as a history of paroxysmal atrial fibrillation and suspect this is an error. Will defer to the PCP to remove this from her problem list if felt appropriate. Kind regards, Dr. Mitch Small (2) Pulmonary edema: (3) Acute respiratory failure with hypoxia: (4) ESRD on dialysis: (5) Anemia due to end stage renal disease: (6) Congestive heart failure with LV diastolic dysfunction, NYHA class 3: (7) Elevated troponin: (8) Diabetic neuropathy: (9) Diabetes mellitus type 2 with complications: (10) Secondary hyperparathyroidism (of renal origin): (11) Hyponatremia: (12) Obesity (BMI 30-39.9): (13) Paroxysmal supraventricular tachycardia: (14) Hyperlipidemia: (15) PVD (peripheral vascular disease): (16) History of amputation below knee: (17) Hypothyroidism: Total Time Total Time Spent Total Time Spent (In Minutes): 40 Total Time Includes: Examination of the Patient, Discharge Planning and Medication Reconciliation Discharge Plan Discharge Items Patient Disposition: Home - Self-Care Reason For Visit: AC RESP FAILURE, ACUTE EX. OF CHF,PNA Discharge Diagnosis: Acute hypoxic respiratory failure Community Acquired Pneumonia Pulmonary edema (due to end stage renal failure on dialysis) Condition on Discharge: Fair Activity: Resume your previous activity Non-emergency contact: Primary Care Provider Call non-emergency contact if: you have any medication questions and your symptoms worsen Follow-up/Referrals: Phill Ramirez III, CRNP [Primary Care Provider] - 06/02/19 9:20 am (Please, follow up at RAD[facility] Ramirez's office with his associate, Lauren GARCIA, on WednesdayJune 02 at 9:20 am. *If you need to change this appointment, call their office at [phone].) Diet: Carb Consistent or DM2 and Dialysis Renal Fluids: 1000ml (4 cups) Addtl Attending Provider Instructions: You were admitted to [facility] from May 23-2018 due to shortness of breath and low oxygen levels. You were diagnosed community acquired pneumonia and treated with IV then switched to oral antibiotics. Please continue with antibiotics as prescribed. You were treated for pulmonary edema (fluid on your lungs) with dialysis. Of note you were previously taking atorvastatin however this fell off your medication list after your last admission and therefore has been re-prescribed. Pending Studies at Discharge: No Stand-Alone Forms: My [facility], Smoking Cessation Medications and DC Order Prescriptions: New doxycycline hyclate 100 mg tablet 100 mg PO BID 4 Days Qty: 8 RF: 0 amoxicillin-pot clavulanate 500-125 mg Tablet 1 tab PO Q24H 4 Days Qty: 4 RF: 0 atorvastatin 40 mg Tablet 40 mg PO QAM Qty: 30 RF: 0 Continued metoprolol tartrate 100 mg tablet 100 mg PO BID Qty: 180 RF: 1 pregabalin 25 mg capsule 25 mg PO BID Qty: 60 RF: 2 Lantus Solostar U-100 Insulin 100 unit/mL (3 mL) insulin pen See Rx Instructions subcut .COMPLEX Qty: 30 RF: 5 furosemide 40 mg Tablet 40 mg PO BID RF: 0 latanoprost 0.005 % drops 1 drp OPB HS RF: 0 levothyroxine 50 mcg tablet 50 mcg PO QAM RF: 0 calcium acetate 667 mg capsule 667 mg PO TIDM RF: 0 omega-3 acid ethyl esters 1 gram capsule 1 g PO DAILY RF: 0 aspirin [Aspir-81] 81 mg Tablet,Delayed Release (Dr/Ec) 81 mg PO HS RF: 0 cholecalciferol (vitamin D3) 50,000 unit Tablet 50,000 units PO WK RF: 0 clopidogrel 75 mg tablet 75 mg PO QAM RF: 0 amiodarone 200 mg tablet 200 mg PO BID RF: 0 oxycodone-acetaminophen [Percocet] 5-325 mg tablet 1 tab PO DAILY PRN (Reason: Pain) RF: 0 Discharge Orders: Discharge Order (Routine); Ordered 05/27/19 Ordered By: Mitch Shaikh/Other Patient Handouts: Diabetes Civil Draftsman Complications, Diabetes Healthy Meals, Diabetes Carbs, Diabetes Exercise Benefits, Diabetes Exercise Get Started, Diabetes Activity Tips, Diabetes Living Life, A1C Admission Data Admit Date/Time: 05/23/19 18:04 Attending Provider: Mitch Small Admit Provider: Celeste Cavanaugh Primary Care Provider: Phill Ramirez III Other Providers: Celeste Cavanaugh ; Cleveland Hussein ; Annette Quiles Other Interventions: Discharge Summary Assessment (RN) Last Done: 05/27/19 16:52 DC Date/Time DO NOT enter until pt leaves facility: 05/27/19 17:48
[2019-05-28] MEDS ORDERED: ERGOCALCIFEROL 50,000 UNITS CAP PO SCH (09:00)
== END 2019-05-27 17:48 | disposition home or self-care (01) | DRG 871 ==
LOC: ED 14:50 → 1E 18:04 → SUATTDRO 18:04 → 1E 19:52 → 2N 05-24 15:46

== ENCOUNTER 2019-06-21 21:14 | Inpatient (IN) ==
[2019-06-21] MEDS ORDERED: PIPERACILLIN/TAZOBACTAM 4.5 GM in DEXTROSE 5% 100 ML IV STA (21:52)
[2019-06-21] MEDS ORDERED: VANCOMYCIN HCL 1,500 MG in SODIUM CHLORIDE 0.9% 500 ML IV STA (21:52)
[2019-06-21] MEDS ORDERED: VANCOMYCIN CONSULT ACTIVE PRN (21:52)
[2019-06-21] MEDS ORDERED: PIPERACILL/TAZOBAC CONSULT ACTIVE PRN (21:52)
--- NOTE | 2019-06-21 21:57 | XRay Report ---
XR chest 1V portable CLINICAL HISTORY: Sepsis COMPARISON STUDY: Chest radiograph May 23, 2019. FINDINGS: Elevation/eventration of the right hemidiaphragm is noted. There is no pneumothorax or pleu ral effusion. There is no consolidation or evidence for pulmonary edema. Cardiomegaly is unchanged. IMPRESSION: No acute cardiopulmonary findings. No change in appearance of the chest. ACT 112: Negative or not required by law. Electronically signed by: Devan Galeano M.D. 06/21/2019 9:56 PM
[2019-06-21 22:03] LABS: Appearance Urine Turbid (Clear); Bacteria Urine Automated 1+ (Negative); Bilirubin Urine Negative (Negative); Blood Urine 3+ (Negative); Color Urine Yellow; Epithelial Cell Urine Auto >30 /lpf (0-5); Glucose Urine UA 2+ (Negative); Ketones Urine Negative (Negative); Leukocyte Esterase Urine 2+ (Negative); Nitrite Urine Negative (Negative); RBC Urine Automated >30 /hpf (0-4); Specific Gravity Urine 1.019 (1.000-1.030); Urobilinogen Urine Negative (Negative); WBC Urine Automated >30 /hpf (0-5); pH Urine >= 9.0 (4.5-7.5)
[2019-06-21 22:04] LABS: Protein Urine 3+ (Negative)
--- NOTE | 2019-06-21 22:08 | Emergency Department Note ---
History of Present Illness General Chief Complaint: Weakness Stated Complaint: FEVER, ILLNESS Source: patient and family Mode of arrival: EMS Limitations: no limitations History of Present Illness Provider complaint: fever, weakness and other (confusion) Onset (ago): hour(s) 3 Maximum Temperature: 101 C Temperature Source: oral Current Pain Intensity: 0 Context: + altered mental status Associated symptoms: + chills, + abdominal pain and + other (right flank pain) Treatments prior to arrival fever: + acetaminophen This 69-year-old female patient presents emergency department today via ambulance accompanied by her with complaints of fever and feeling "in and out" for the majority of the day today. The patient's states that approximately 6 PM, the patient did not seem to know what she was doing. The patient states she was feeling well earlier in the day and was at her daughter's for [place]. She got done eating, and her noted that she seemed to be falling asleep in her wheelchair. The patient states for the past 2 days, she has been feeling very tired and weak. She did have dialysis yesterday, and is scheduled for dialysis again tomorrow. The patient was complaining of some right flank pain earlier today. She otherwise denies any symptoms at this time including abdominal pain, nausea, vomiting, numbness, tingling, weakness, chest pain, difficulty breathing, cough, upper respiratory infection symptoms, headache, dizziness, or other associated symptoms. Home Medications Home Medications Medication Instructions Recorded Confirmed Type latanoprost 1 drp OPB HS 05/14/18 06/21/19 History levothyroxine 50 mcg PO QAM 05/14/18 06/21/19 History omega-3 acid ethyl esters 1 g PO DAILY 05/14/18 06/21/19 History aspirin [Aspir-81] 81 mg PO HS 07/23/18 06/21/19 History cholecalciferol (vitamin D3) 50,000 units PO WK 07/23/18 06/21/19 History metoprolol tartrate 100 mg tablet 100 mg PO BID #180 tab 12/30/18 06/21/19 Rx clopidogrel 75 mg PO QAM 01/16/19 06/21/19 History pregabalin 25 mg capsule 25 mg PO BID #60 cap 04/24/19 06/21/19 Rx insulin glargine 100 unit/mL (3 See Rx Instructions SUBCUT 05/15/19 06/21/19 Rx mL) subcutaneous pen .COMPLEX #30 ml amiodarone 200 mg PO BID 05/23/19 06/21/19 History atorvastatin 40 mg PO QAM #30 tab 05/27/19 06/21/19 Rx oxycodone-acetaminophen 5 mg-325 1 tab PO DAILY PRN #30 tab 06/13/19 06/21/19 Rx mg tablet ferric citrate [Auryxia] 2 tab PO TIDM 06/21/19 06/21/19 History furosemide 40 mg PO BID 06/21/19 06/21/19 History Allergies Allergy/AdvReac Type Severity Reaction Status Date / Time No Known Allergies Allergy Verified 06/21/19 23:48 Past Med/Surg History Medical History Anemia (Chronic 05/24/13) AVNRT (AV alondra re-entry tachycardia) Chronic diastolic CHF (congestive heart failure) Colon cancer screening Diabetes mellitus (Resolved) Diabetes mellitus type 2 with complications (Chronic) Diabetic nephropathy (Chronic) Diabetic peripheral neuropathy associated with type 2 diabetes mellitus (Resolved) Dialysis patient (Chronic) ESRD on dialysis (Chronic) dialysis--tue/thur/sat GI (gastrointestinal bleed) (Resolved 05/24/13) Gout History of colon cancer (Chronic) 2008--sx, chemo History of diabetic ulcer of foot (Chronic) Hyperlipidemia (Chronic) Hypertension (Chronic) Hypothyroidism (Chronic) Hypoxia (Resolved) Left posterior fascicular block (LPFB) (Chronic) Morbid obesity with BMI of 40.0-44.9, adult (Inactive) Obesity Palpitations (Resolved) Paroxysmal atrial fibrillation (Chronic) on plavix follows with Kip Fletcher Paroxysmal supraventricular tachycardia (Chronic) PVD (peripheral vascular disease) (Chronic) RBBB (right bundle branch block) (Chronic) SIRS (systemic inflammatory response syndrome) (Resolved) Sleep apnea (Chronic) does not use CPAP Surgical History Arteriovenous fistula left arm 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) History of bilateral cataract extraction History of bladder surgery per pt half of bladder removed during colectomy History of colectomy 4 ft removed History of colonoscopy History of colostomy History of colostomy reversal History of tonsillectomy and adenoidectomy History of total hysterectomy with bilateral salpingo-oophorectomy (BSO) History of wisdom tooth extraction Hx of right BKA (Resolved) Family History (Updated 06/02/19 @ 09:13 by Teresa Asencio) Mother Breast cancer Grandfather Myocardial infarction Father Family history of diabetes mellitus Other No family history of adverse response to anesthesia Social History Preferred Language: [place] Communication Ability: Effective Visual Impairment: No Limitations Power Barker Required: No Beliefs That Will Affect Care: None marital status: Current Living Situation: Spouse current occupational status: retired Feels Safe at Home: Yes Smoking Status: Never smoker Second Hand Exposure: No ; Hx Alcohol Use: No Hx Substance Use: No Review of Systems A total of 10 systems reviewed and were otherwise negative Physical Exam Vital Signs Vital Signs - 24 hr 06/21/19 21:25 06/21/19 21:49 06/21/19 22:44 Temperature 38.2 C H Temperature Source Oral Pulse Rate 99 H 99 H Pulse Rate [Finger] 93 H Pulse Rhythm Regular Regular Pulse Rhythm [Finger] Regular Pulse Strength Normal Pulse Strength [Finger] Normal Respiratory Rate 20 20 18 Respiratory Effort / Characteristics Non-Labored Spontaneous Non-Labored Spontaneous Respiratory Depth Normal Normal Respiratory Pattern Regular Regular Blood Pressure 185/96 H Blood Pressure [Right Arm] 143/69 H Blood Pressure Mean 125 Blood Pressure Mean [Right Arm] 93 Blood Pressure Position Lying Blood Pressure Position [Right Arm] Lying Pulse Oximetry 88 L 96 96 Oxygen Delivery Method Room Air Nasal Cannula Nasal Cannula Oxygen Flow Rate 2 2 Sepsis Recent Fever Within 48 Hours No Sepsis New/Unexplained Change in Mental Status No Sepsis Action Taken by Nursing No Action Required Oxygen Flow Rate - Titration 2 Pulse Oximetry Post Tiitration 96 06/21/19 23:18 Temperature Temperature Source Pulse Rate Pulse Rate [Finger] 92 H Pulse Rhythm Pulse Rhythm [Finger] Regular Pulse Strength Pulse Strength [Finger] Normal Respiratory Rate 17 Respiratory Effort / Characteristics Non-Labored Spontaneous Respiratory Depth Normal Respiratory Pattern Regular Blood Pressure Blood Pressure [Right Arm] 150/69 H Blood Pressure Mean Blood Pressure Mean [Right Arm] 96 Blood Pressure Position Blood Pressure Position [Right Arm] Sitting Pulse Oximetry 96 Oxygen Delivery Method Nasal Cannula Oxygen Flow Rate 2 Sepsis Recent Fever Within 48 Hours Sepsis New/Unexplained Change in Mental Status Sepsis Action Taken by Nursing Oxygen Flow Rate - Titration Pulse Oximetry Post Tiitration VITALS: Vitals are noted on the nurse's note and reviewed by myself. Vital signs stable. GENERAL: This is a 69-year-old obese white female, in no acute distress, nondiaphoretic, well-developed well-nourished. SKIN: The skin was without rashes, erythema, edema, or bruising. There is no tenting of the skin. Capillary refill less than 2 seconds. HEAD: Normocephalic atraumatic. EARS: External auditory canals clear, tympanic membranes pearly ross without erythema or effusion bilaterally. EYES: Pupils equal round and reactive to light and accommodation. Conjunctivae without injection, sclerae without icterus. Extraocular movements intact. NOSE: Patent, turbinates without inflammation or discharge. No sinus tenderness. MOUTH: Mucous membranes moist. Pharynx without erythema or exudate. Uvula midline. Airway patent. Tongue does not deviate. NECK: Supple without nuchal rigidity. No lymphadenopathy. No thyromegaly. Cervical spine is nontender. No JVD. HEART: Regular rate and rhythm without murmurs gallops or rubs. LUNGS: Clear to auscultation bilaterally without wheezes, rales or rhonchi. No dullness to percussion. No retractions or accessory muscle use. ABDOMEN: Positive bowel sounds x 4. Normal tympanic percussion. Right CVA tenderness. Suprapubic tenderness palpation. The abdomen is otherwise soft, nontender, without masses or organomegaly. [place] sign negative. No guarding or rebound tenderness. MUSCULOSKELETAL: Right lower extremity below the knee amputation. No muscle atrophy, erythema, or edema noted. Full range of motion without joint tenderness in all extremities. No tenderness to palpation. Normal gait. Strength 5/5 throughout. NEURO: Patient was alert and oriented to person place and time. Normal sensation to light and sharp touch. No focal neurological deficits. Course The patient was seen and evaluated as above. Previous medical records reviewed. I discussed the case with my attending physician. IV access obtained, labs drawn. Pt. medicated with Vancomycin and Zosyn. Imaging performed and reviewed by myself and radiologist as above. Labs reviewed by myself. I discussed the findings with the patient at bedside. I did recommend admission. The patient was agreeable. I discussed the case with the architectural manager. I discussed the case with Dr. Ren. He did agree to see and evaluate the patient. Please see hospitalist dictation regarding ongoing management care of this patient. Administered Medications Vancomycin HCl 1,500 mg/ (Sodium Chloride) 530 mls @ 200 mls/hr IV NOW STA; Protocol Stop: 06/22/19 00:30 Last Admin: 06/21/19 23:40 Dose: 200 mls/hr Documented by: [id number] Discontinued Medications Piperacillin Sod/Tazobactam (Sod 4.5 gm/ Dextrose) 120 mls @ 200 mls/hr IV NOW STA; Protocol Stop: 06/21/19 22:27 Last Infusion: 06/21/19 23:20 Dose: 0 mls/hr Documented by: [id number] Admin: 06/21/19 22:39 Dose: 200 mls/hr Documented by: [id number] Acetaminophen (Ofirmev) 1,000 mg in 100 mls @ 400 mls/hr IV NOW STA Stop: 06/21/19 23:17 Last Infusion: 06/21/19 23:43 Dose: 0 mls/hr Documented by: [id number] Admin: 06/21/19 23:20 Dose: 400 mls/hr Documented by: [id number] Medical Decision Making Differential Diagnosis + cellulitis, + fever of unknown origin, + gastroenteritis, + community acquired pneumonia, + pyelonephritis, + viral infection, + sepsis, + influenza, + viral syndrome, + strep pharyngitis, + tonsillitis, + mononucleosis, + meningitis, + encephalitis, + Lyme disease, + bronchitis and + pneumonia Medical Records Attestation: I reviewed the patient's medical records. Home Medications Current Medication List: was personally reviewed by me Laboratory Data Attestation: I reviewed the patient's lab results. No leukocytosis. Mild anemia which does seem to be chronic. No thrombocytopenia. INR mildly elevated at 1.2. VBG pH 7.42. Otherwise VBG normal. Creatinine elevated at 8. The patient is a dialysis patient. Sodium 130. Glucose elevated at 465. Calcium mildly low at 8.4. Lactic acid 1.9. Hepatic function without significant abnormality. Procalcitonin mildly elevated at 1.3. Urinalysis positive for bacteria and blood. Negative influenza testing. Result diagrams: 06/21/19 22:01 06/21/19 22:01 Lab Results 06/21/19 06/21/19 06/21/19 Range/Units 21:35 21:40 21:42 WBC (4.8-10.8) K/uL RBC (4.2-5.4) M/uL Hgb (12.0-16.0) g/dL Hct (37-47) % MCV (80-100) fL MCH (25-34) pg MCHC (32-36) g/dL RDW Std Deviation (36.4-46.3) fL RDW Coeff of Veronica (11.5-14.5) % Plt Count (130-400) K/uL MPV (7.4-10.4) fL Immature Gran % (Auto) % Neut % (Auto) % Lymph % (Auto) % [place] % (Auto) % Eos % (Auto) % Baso % (Auto) % Immature Gran # (Auto) (0.00-0.02) K/uL Neut # (Auto) (1.4-6.5) K/uL Lymph # (Auto) (1.2-3.4) K/uL [place] # (Auto) (0.11-0.59) K/uL Eos # (Auto) (0-0.5) K/uL Baso # (Auto) (0-0.2) K/uL PT (9.0-12.0) Seconds INR (0.9-1.1) APTT (21.0-31.0) Seconds PTT Ratio VBG pH (7.36-7.41) VBG pCO2 (38-50) mmHg VBG pO2 mmHg VBG HCO3 mmol/L VBG O2 Saturation % VBG Base Excess mEq/L Barometric Pressure mm/Hg Sodium (136-145) mmol/L Potassium (3.5-5.1) mmol/L Chloride (98-107) mmol/L Carbon Dioxide (21-32) mmol/L Anion Gap (3-11) BUN (7-18) mg/dl Creatinine (0.6-1.2) mg/dl Est Cr Clr Drug Dosing ml/min Est GFR ( Amer) Est GFR (Non-Af Amer) BUN/Creatinine Ratio (10-20) Glucose (70-99) mg/dl POC Glucose 426 H* 465 H* (70-99) Lactate (0.4-2.0) mmol/L Calcium (8.5-10.1) mg/dl Magnesium (1.8-2.4) mg/dl Total Bilirubin (0.2-1) mg/dl AST (15-37) U/L ALT (12-78) U/L Alkaline Phosphatase (45-117) U/L Total Protein (6.4-8.2) gm/dl Albumin (3.4-5.0) gm/dl Globulin (2.5-4.0) gm/dl Albumin/Globulin Ratio (0.9-2) Beta-Hydroxybutyric Acd (0.2-2.81) mg/dl Procalcitonin (0-0.5) ng/ml Specimen Hemolysis Urine Color Yellow Urine Appearance Turbid A (Clear) Urine pH >= 9.0 H (4.5-7.5) Ur Specific [place] 1.019 (1.000-1.030) Urine Protein 3+ H (Negative) Urine Glucose (UA) 2+ H (Negative) Urine Ketones Negative (Negative) Urine Blood 3+ H (Negative) Urine Nitrite Negative (Negative) Urine Bilirubin Negative (Negative) Urine Urobilinogen Negative (Negative) Ur Leukocyte Esterase 2+ H (Negative) Urine WBC (Auto) >30 H (0-5) /hpf Urine RBC (Auto) >30 H (0-4) /hpf U Hyaline Cast (Auto) 1-5 (0-5) /lpf U Epithel Cells (Auto) >30 H (0-5) /lpf Urine Bacteria (Auto) 1+ H (Negative) Influenza Type A Ag (Neg) Influenza Type B Ag (Neg) 06/21/19 06/21/19 06/21/19 Range/Units 22:01 22:01 22:01 WBC 7.82 (4.8-10.8) K/uL RBC 3.43 L (4.2-5.4) M/uL Hgb 10.9 L (12.0-16.0) g/dL Hct 32.7 L (37-47) % MCV 95.3 (80-100) fL MCH 31.8 (25-34) pg MCHC 33.3 (32-36) g/dL RDW Std Deviation 58.4 H (36.4-46.3) fL RDW Coeff of Veronica 16.8 H (11.5-14.5) % Plt Count 141 (130-400) K/uL MPV 9.9 (7.4-10.4) fL Immature Gran % (Auto) 0.4 % Neut % (Auto) 78.7 % Lymph % (Auto) 13.4 % [place] % (Auto) 6.0 % Eos % (Auto) 1.2 % Baso % (Auto) 0.3 % Immature Gran # (Auto) 0.03 H (0.00-0.02) K/uL Neut # (Auto) 6.16 (1.4-6.5) K/uL Lymph # (Auto) 1.05 L (1.2-3.4) K/uL [place] # (Auto) 0.47 (0.11-0.59) K/uL Eos # (Auto) 0.09 (0-0.5) K/uL Baso # (Auto) 0.02 (0-0.2) K/uL PT 11.9 (9.0-12.0) Seconds INR 1.2 H (0.9-1.1) APTT 27.5 (21.0-31.0) Seconds PTT Ratio 1.0 VBG pH (7.36-7.41) VBG pCO2 (38-50) mmHg VBG pO2 mmHg VBG HCO3 mmol/L VBG O2 Saturation % VBG Base Excess mEq/L Barometric Pressure mm/Hg Sodium 130 L (136-145) mmol/L Potassium 5.1 (3.5-5.1) mmol/L Chloride 92 L (98-107) mmol/L Carbon Dioxide 28 (21-32) mmol/L Anion Gap 11.0 (3-11) BUN 39 H (7-18) mg/dl Creatinine 8.00 H* (0.6-1.2) mg/dl Est Cr Clr Drug Dosing 8.2 ml/min Est GFR ( Amer) 5.4 Est GFR (Non-Af Amer) 4.6 BUN/Creatinine Ratio 4.8 L (10-20) Glucose 452 H* (70-99) mg/dl POC Glucose (70-99) Lactate (0.4-2.0) mmol/L Calcium 8.4 L (8.5-10.1) mg/dl Magnesium 1.9 (1.8-2.4) mg/dl Total Bilirubin 0.5 (0.2-1) mg/dl AST 20 (15-37) U/L ALT 21 (12-78) U/L Alkaline Phosphatase 140 H (45-117) U/L Total Protein 7.6 (6.4-8.2) gm/dl Albumin 3.0 L (3.4-5.0) gm/dl Globulin 4.6 H (2.5-4.0) gm/dl Albumin/Globulin Ratio 0.7 L (0.9-2) Beta-Hydroxybutyric Acd (0.2-2.81) mg/dl Procalcitonin (0-0.5) ng/ml Specimen Hemolysis Urine Color Urine Appearance (Clear) Urine pH (4.5-7.5) Ur Specific [place] (1.000-1.030) Urine Protein (Negative) Urine Glucose (UA) (Negative) Urine Ketones (Negative) Urine Blood (Negative) Urine Nitrite (Negative) Urine Bilirubin (Negative) Urine Urobilinogen (Negative) Ur Leukocyte Esterase (Negative) Urine WBC (Auto) (0-5) /hpf Urine RBC (Auto) (0-4) /hpf U Hyaline Cast (Auto) (0-5) /lpf U Epithel Cells (Auto) (0-5) /lpf Urine Bacteria (Auto) (Negative) Influenza Type A Ag (Neg) Influenza Type B Ag (Neg) 06/21/19 06/21/19 06/21/19 Range/Units 22:01 22:01 22:01 WBC (4.8-10.8) K/uL RBC (4.2-5.4) M/uL Hgb (12.0-16.0) g/dL Hct (37-47) % MCV (80-100) fL MCH (25-34) pg MCHC (32-36) g/dL RDW Std Deviation (36.4-46.3) fL RDW Coeff of Veronica (11.5-14.5) % Plt Count (130-400) K/uL MPV (7.4-10.4) fL Immature Gran % (Auto) % Neut % (Auto) % Lymph % (Auto) % [place] % (Auto) % Eos % (Auto) % Baso % (Auto) % Immature Gran # (Auto) (0.00-0.02) K/uL Neut # (Auto) (1.4-6.5) K/uL Lymph # (Auto) (1.2-3.4) K/uL [place] # (Auto) (0.11-0.59) K/uL Eos # (Auto) (0-0.5) K/uL Baso # (Auto) (0-0.2) K/uL PT (9.0-12.0) Seconds INR (0.9-1.1) APTT (21.0-31.0) Seconds PTT Ratio VBG pH 7.42 H (7.36-7.41) VBG pCO2 44 (38-50) mmHg VBG pO2 35 mmHg VBG HCO3 28 mmol/L VBG O2 Saturation 66.0 % VBG Base Excess 3.2 mEq/L Barometric Pressure 734.4 mm/Hg Sodium (136-145) mmol/L Potassium (3.5-5.1) mmol/L Chloride (98-107) mmol/L Carbon Dioxide (21-32) mmol/L Anion Gap (3-11) BUN (7-18) mg/dl Creatinine (0.6-1.2) mg/dl Est Cr Clr Drug Dosing ml/min Est GFR ( Amer) Est GFR (Non-Af Amer) BUN/Creatinine Ratio (10-20) Glucose (70-99) mg/dl POC Glucose (70-99) Lactate 1.9 (0.4-2.0) mmol/L Calcium (8.5-10.1) mg/dl Magnesium (1.8-2.4) mg/dl Total Bilirubin (0.2-1) mg/dl AST (15-37) U/L ALT (12-78) U/L Alkaline Phosphatase (45-117) U/L Total Protein (6.4-8.2) gm/dl Albumin (3.4-5.0) gm/dl Globulin (2.5-4.0) gm/dl Albumin/Globulin Ratio (0.9-2) Beta-Hydroxybutyric Acd (0.2-2.81) mg/dl Procalcitonin 1.30 H (0-0.5) ng/ml Specimen Hemolysis Urine Color Urine Appearance (Clear) Urine pH (4.5-7.5) Ur Specific [place] (1.000-1.030) Urine Protein (Negative) Urine Glucose (UA) (Negative) Urine Ketones (Negative) Urine Blood (Negative) Urine Nitrite (Negative) Urine Bilirubin (Negative) Urine Urobilinogen (Negative) Ur Leukocyte Esterase (Negative) Urine WBC (Auto) (0-5) /hpf Urine RBC (Auto) (0-4) /hpf U Hyaline Cast (Auto) (0-5) /lpf U Epithel Cells (Auto) (0-5) /lpf Urine Bacteria (Auto) (Negative) Influenza Type A Ag (Neg) Influenza Type B Ag (Neg) 06/21/19 Range/Units 22:20 WBC (4.8-10.8) K/uL RBC (4.2-5.4) M/uL Hgb (12.0-16.0) g/dL Hct (37-47) % MCV (80-100) fL MCH (25-34) pg MCHC (32-36) g/dL RDW Std Deviation (36.4-46.3) fL RDW Coeff of Veronica (11.5-14.5) % Plt Count (130-400) K/uL MPV (7.4-10.4) fL Immature Gran % (Auto) % Neut % (Auto) % Lymph % (Auto) % [place] % (Auto) % Eos % (Auto) % Baso % (Auto) % Immature Gran # (Auto) (0.00-0.02) K/uL Neut # (Auto) (1.4-6.5) K/uL Lymph # (Auto) (1.2-3.4) K/uL [place] # (Auto) (0.11-0.59) K/uL Eos # (Auto) (0-0.5) K/uL Baso # (Auto) (0-0.2) K/uL PT (9.0-12.0) Seconds INR (0.9-1.1) APTT (21.0-31.0) Seconds PTT Ratio VBG pH (7.36-7.41) VBG pCO2 (38-50) mmHg VBG pO2 mmHg VBG HCO3 mmol/L VBG O2 Saturation % VBG Base Excess mEq/L Barometric Pressure mm/Hg Sodium (136-145) mmol/L Potassium (3.5-5.1) mmol/L Chloride (98-107) mmol/L Carbon Dioxide (21-32) mmol/L Anion Gap (3-11) BUN (7-18) mg/dl Creatinine (0.6-1.2) mg/dl Est Cr Clr Drug Dosing ml/min Est GFR ( Amer) Est GFR (Non-Af Amer) BUN/Creatinine Ratio (10-20) Glucose (70-99) mg/dl POC Glucose (70-99) Lactate (0.4-2.0) mmol/L Calcium (8.5-10.1) mg/dl Magnesium (1.8-2.4) mg/dl Total Bilirubin (0.2-1) mg/dl AST (15-37) U/L ALT (12-78) U/L Alkaline Phosphatase (45-117) U/L Total Protein (6.4-8.2) gm/dl Albumin (3.4-5.0) gm/dl Globulin (2.5-4.0) gm/dl Albumin/Globulin Ratio (0.9-2) Beta-Hydroxybutyric Acd (0.2-2.81) mg/dl Procalcitonin (0-0.5) ng/ml Specimen Hemolysis Urine Color Urine Appearance (Clear) Urine pH (4.5-7.5) Ur Specific [place] (1.000-1.030) Urine Protein (Negative) Urine Glucose (UA) (Negative) Urine Ketones (Negative) Urine Blood (Negative) Urine Nitrite (Negative) Urine Bilirubin (Negative) Urine Urobilinogen (Negative) Ur Leukocyte Esterase (Negative) Urine WBC (Auto) (0-5) /hpf Urine RBC (Auto) (0-4) /hpf U Hyaline Cast (Auto) (0-5) /lpf U Epithel Cells (Auto) (0-5) /lpf Urine Bacteria (Auto) (Negative) Influenza Type A Ag Neg for Influ A (Neg) Influenza Type B Ag Neg for Influ B (Neg) Imaging Data Radiologist's Impression: XR chest 1V portable CLINICAL HISTORY: Sepsis COMPARISON STUDY: Chest radiograph May 23, 2019. FINDINGS: Elevation/eventration of the right hemidiaphragm is noted. There is no pneumothorax or pleural effusion. There is no consolidation or evidence for pulmonary edema. Cardiomegaly is unchanged. IMPRESSION: No acute cardiopulmonary findings. No change in appearance of the chest. ACT 112: Negative or not required by law. Electronically signed by: Devan Galeano M.D. 06/21/2019 9:[address] OF THE ABDOMEN AND PELVIS WITHOUT CONTRAST CLINICAL HISTORY: right flank pain, suprapubic pain, fever COMPARISON STUDY: CT of the abdomen and pelvis February 03, 2019. Right upper quadrant ultrasound February 06, 2019. TECHNIQUE: Axial images of the abdomen and pelvis were obtained without IV contrast. Images were reviewed in the axial, sagittal, and coronal planes. Automated exposure control was utilized for the study. A dose lowering technique was utilized adhering to the principles of ALARA. FINDINGS: Lung bases are unremarkable. Evaluation of the abdomen and pelvis is suboptimal on this unenhanced exam. There are suspected stones within the gallbladder without evidence for acute cholecystitis. Unenhanced images of the liver, spleen, adrenal glands and pancreas are unchanged. 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 Several bowel containing ventral hernias are noted. There is no evidence for a bowel obstruction. No pneumatosis, free air or portal venous gas is present. This extensive atherosclerotic plaque. Marked bilateral renal cortical thinning is noted. There is mild dilatation of the right renal pelvis and slight dilatation of the right ureter with mild adjacent infiltration and possible urothelial thickening. There is mild bladder wall thickening. No ureteral calculi identified. There is no left hydronephrosis. There are no suspicious osseous lesions. No lymphadenopathy is present. IMPRESSION: 1. Mild dilatation of the right renal pelvis and right ureter with associated infiltration and possible urothelial thickening. This favors an infectious process such as pyelitis. A recently passed calculus could appear similar. Bladder wall thickening which favors cystitis. Underlying urothelial lesion is considered less likely but could appear similar. Findings could be correlated with urinalysis and urine cytology. Marked bilateral renal cortical thinning. 2. Multiple bowel containing ventral hernias. No bowel obstruction. 3. Cholelithiasis. ACT 112: Negative or not required by law. Electronically signed by: Devan Galeano M.D. 06/21/2019 10:54 PM Blood Pressure Blood Pressure Findings: Elevated blood pressure MDM Narrative This 69-year-old female patient with significant past medical history of uncontrolled diabetes, hyperlipidemia, end-stage renal disease on dialysis, presents the emergency department today due to nonspecific weakness, fever, and flank and abdominal pain. The initial concern was for sepsis, so work-up initiated. The patient was immediately medicated with vancomycin and Zosyn. She was not given IV fluids initially due to history of end-stage renal disease and concern for fluid overload. The patient was febrile and medicated with acetaminophen work appears most consistent with a UTI with pyelitis. The patient was feeling much better with the antibiotics. She will be admitted to the hospitalist service for ongoing management of the infection and symptoms. Please see hospitalist dictation regarding ongoing management and care of this patient. The chart was completed utilizing [employer] Speech voice recognition software. Grammatical errors, random word insertions, pronoun errors, and incomplete sentences are an occasional consequence of this system due to software limitations, ambient noise, and hardware issues. Any formal questions or concerns about the content, text, or information contained within the body of this dictation should be directly addressed to the provider for clarification. Impression & Plan Sepsis, ESRD on dialysis, Diabetes mellitus type 2 with complications, Acute pyelitis Discharge Plan Visit Data Chief Complaint: Weakness Stated Complaint: FEVER, ILLNESS ED Provider: Cory Hale ED Midlevel Provider: Ivon Torres Discharge Problem: Sepsis, ESRD on dialysis, Diabetes mellitus type 2 with complications, Acute pyelitis Patient Disposition: Admitted As Inpatient Forms Stand Alone Forms: My [facility] Prescriptions Prescriptions: No Action metoprolol tartrate 100 mg tablet 100 mg PO BID Qty: 180 RF: 1 pregabalin 25 mg capsule 25 mg PO BID Qty: 60 RF: 2 oxycodone-acetaminophen [Percocet] 5-325 mg tablet 1 tab PO DAILY PRN (Reason: Pain) Qty: 30 RF: 0 Lantus Solostar U-100 Insulin 100 unit/mL (3 mL) insulin pen See Rx Instructions subcut .COMPLEX Qty: 30 RF: 5 latanoprost 0.005 % drops 1 drp OPB HS RF: 0 levothyroxine 50 mcg tablet 50 mcg PO QAM RF: 0 omega-3 acid ethyl esters 1 gram capsule 1 g PO DAILY RF: 0 aspirin [Aspir-81] 81 mg Tablet,Delayed Release (Dr/Ec) 81 mg PO HS RF: 0 cholecalciferol (vitamin D3) 50,000 unit Tablet 50,000 units PO WK RF: 0 Auryxia 210 mg iron tablet 2 tab PO TIDM RF: 0 furosemide 40 mg tablet 40 mg PO BID RF: 0 clopidogrel 75 mg tablet 75 mg PO QAM RF: 0 amiodarone 200 mg tablet 200 mg PO BID RF: 0 atorvastatin 40 mg Tablet 40 mg PO QAM Qty: 30 RF: 0 Referrals Referrals: Phill Ramirez III, CRNP [Primary Care Provider] -
[2019-06-21 22:11] LABS: Sulfosalicylic Acid Urine Positive (Negative)
[2019-06-21 22:12] LABS: Basophils # (auto) 0.02 K/uL (0-0.2); Basophils % (auto) 0.3 %; Eosinophils # (auto) 0.09 K/uL (0-0.5); Eosinophils % (auto) 1.2 %; Hematocrit (blood only) 32.7 % (37-47); Hemoglobin 10.9 g/dL (12.0-16.0); Immature Granulocytes # (auto) 0.03 K/uL (0.00-0.02); Immature Granulocytes % (auto) 0.4 %; Lymphocytes # (auto) 1.05 K/uL (1.2-3.4); Lymphocytes % (auto) 13.4 %; Mean Corpuscular Hemoglobin 31.8 pg (25-34); Mean Corpuscular Hgb Conc 33.3 g/dL (32-36); Mean Corpuscular Volume 95.3 fL (80-100); Mean Platelet Volume 9.9 fL (7.4-10.4); Monocytes # (auto) 0.47 K/uL (0.11-0.59); Neutrophils # (auto) 6.16 K/uL (1.4-6.5); Neutrophils % (auto) 78.7 %; Platelet Count 141 K/uL (130-400); RDW Coefficient of Variation 16.8 % (11.5-14.5); RDW Standard Deviation 58.4 fL (36.4-46.3); Red Blood Count 3.43 M/uL (4.2-5.4); White Blood Count 7.82 K/uL (4.8-10.8)
[2019-06-21 22:15] LABS: Base Excess VBG 3.2 mEq/L; pH VBG 7.42 (7.36-7.41)
[2019-06-21 22:24] LABS: INR 1.2 (0.9-1.1); Partial Thromboplastin Time 27.5 Seconds (21.0-31.0); Prothrombin Time 11.9 Seconds (9.0-12.0)
[2019-06-21 22:40] LABS: Albumin Globulin Ratio 0.7 (0.9-2); BUN Creatinine Ratio 4.8 (10-20); Bilirubin,Total 0.5 mg/dl (0.2-1); Calcium 8.4 mg/dl (8.5-10.1); Creatinine Clr Calc Pharmacy 8.2 ml/min; Est GFR (African American) 5.4; Est GFR (Non-African American) 4.6; Globulin 4.6 gm/dl (2.5-4.0); Magnesium 1.9 mg/dl (1.8-2.4); Potassium 5.1 mmol/L (3.5-5.1); Total Protein 7.6 gm/dl (6.4-8.2)
--- NOTE | 2019-06-21 22:55 | CT Scan Report ---
CT OF THE ABDOMEN AND PELVIS WITHOUT CONTRAST CLINICAL HISTORY: right flank pain, suprapubic pain, fever COMPARISON STUDY: CT of the abdomen and pelvis February 03, 2019. Right upper quadrant ultrasound Augus t 2018. TECHNIQUE: Axial images of the abdomen and pelvis were obtained without IV contrast. Images were revi ewed in the axial, sagittal, and coronal planes. Automated exposure control was utilized for the peri dy. A dose lowering technique was utilized adhering to the principles of ALARA. FINDINGS: Lung bases are unremarkable. Evaluation of the abdomen and pelvis is suboptimal on this une nhanced exam. There are suspected stones within the gallbladder without evidence for acute cholecysti tis. Unenhanced images of the liver, spleen, adrenal glands and pancreas are unchanged. 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 Several bowel containing ventral hernias are noted. Ther e is no evidence for a bowel obstruction. No pneumatosis, free air or portal venous gas is present. T his extensive atherosclerotic plaque. Marked bilateral renal cortical thinning is noted. There is mil d dilatation of the right renal pelvis and slight dilatation of the right ureter with mild adjacent i nfiltration and possible urothelial thickening. There is mild bladder wall thickening. No ureteral ca lculi identified. There is no left hydronephrosis. There are no suspicious osseous lesions. No lympha denopathy is present. IMPRESSION: 1. Mild dilatation of the right renal pelvis and right ureter with associated infiltration and possib le urothelial thickening. This favors an infectious process such as pyelitis. A recently passed calcu asif could appear similar. Bladder wall thickening which favors cystitis. Underlying urothelial lesion is considered less likely but could appear similar. Findings could be correlated with urinalysis and urine cytology. Marked bilateral renal cortical thinning. 2. Multiple bowel containing ventral hernias. No bowel obstruction. 3. Cholelithiasis. ACT 112: Negative or not required by law. Electronically signed by: Devan Galeano M.D. 06/21/2019 10:54 PM
[2019-06-21] MEDS ORDERED: ACETAMINOPHEN 1,000 MG/100 ML VIAL IV STA (23:03)
--- NOTE | 2019-06-21 23:25 | Emergency Department Note ---
ED Visit Note I have personally evaluated this patient examined her and reviewed the pertinent labs and data. I have discussed the case with Ivon Torres, the physician clinical trials assistant and agree with the plan. Please refer to the ANKIT note. This patient has a complex medical history comes in complaint of a fever. She has had left flank pain we did an extensive work-up. She is a dialysis patient and has been on her normal schedule for the holidays. She does make urine and her urinalysis does appear to be infected. A CAT scan does show some findings consistent with a pyelitis as well. With IV antibiotics, she looks much better. Her lactic acid is not elevated and she has been normal/hypertensive. Given the fact that she is a dialysis patient we have been very judicious with the fluids as her blood pressures have been normal and high. We did discuss case with Dr. Torres and she will be admitted .
--- NOTE | 2019-06-22 01:39 | History & Physical Report ---
Date of Service June 22, 2019 Assessment & Plan (1) Pyelonephritis: 69-year-old female was admitted on 22 June 2019 for increased fatigue, flank pain, and pyelonephritis. Pyelonephritis, cystitis: Rather quick onset of right flank pain earlier on 25Dec. Denies subjective fever, N/V, or anterior abdominal pain. Presently pain is resolved with Tylenol. - In ED, temp 38.2. Borderline tachycardic. Not tachypneic. Hypertensive. WBC 7, procalcitonin 1.3, lactate 1.9. Negative for influenza. UA appears very dirty. CT a/p without contrast suggestive of pyelonephritis and cystitis (see full report). Blood and urine cultures sent. - In ED, given some Tylenol. Started on vancomycin and Zosyn. - Will continue on vancomycin and Zosyn. Await culture results. ESRD on dialysis, diabetic nephropathy: Dialysis usually TuThSa but most recently on WednesdayDec (due to holidays). Still does make some urine. - Consulted nephrology for likely dialysis today (Dec). Hypoxia: Recent acute respiratory failure secondary to CAP, pulmonary edema. Admitted from -30Nov for same. Sent home on 2 L NC oxygen and weaned off a couple weeks later. - In ED, initial SpO2 88% on RA, improved to 96% on 2 L NC. VBG pH 7.42, pCO2 44, bicarb 28. pCXR without acute findings. - Will continue on supplemental oxygen and wean when possible. Left ankle pain: Noted for the past couple hours. Atraumatic. Distally neurovascularly intact. For now recommend reevaluation in the a.m. Hyponatremia, Hyperkalemia: Admit sodium 130 and potassium 5.1. Adjust via dialysis. Hyperglycemia, diabetes type 2: Admit glucose 452. Anion gap 11. Attempted B- ABRAHAM testing was unsuccessful. At home is on Lantus 36 units in the a.m. and 66 units in the p.m. - Placed glycemic consult for help with management as inpatient. Elevated alkaline phosphatase: Admit AP 140 with otherwise normal LFTs. Denies anterior abdominal pain. Incidental imaging findings: - Cholelithiasis seen on CT a/p. - Multiple bowel containing ventral hernias without evidence of obstruction on CT a/p. Ongoing medical issues: - Hypertension, hyperlipidemia, peripheral vascular disease: Continue home aspirin, atorvastatin, Plavix, metoprolol - AVNRT, left posterior fascicular block, palpitations, paroxysmal a fib, paroxysmal SVT, right BBB: All prior history of same. Arrhythmias during last hospitalization as well. Continue home amiodarone. - Chronic diastolic CHF: Continue home Lasix 40 mg twice daily. - Anemia, previous GI bleed, colon cancer: Admit hemoglobin 10.9, around baseline. - Diabetic neuropathy: Continue home pregabalin. - Sleep apnea, morbid obesity: Patient says she stopped using CPAP years ago. - Hypothyroidism: Continue home levothyroxine. - Secondary hyperparathyroidism. Code status: Conditional code. Does not want CPR but is okay with intubation. Diet: DM, renal diet. DVT prophy: Heparin. PT/OT: Deferred. Disbo: Admit to med telemetry. (2) Cystitis: (3) ESRD on dialysis: (4) Hypoxia: (5) Left ankle pain: (6) Hyponatremia: (7) Hyperkalemia: (8) Hyperglycemia: (9) Diabetes mellitus type 2 with complications: (10) Elevated alkaline phosphatase level: (11) Cholelithiasis: (12) Ventral hernia: (13) Hypertension: (14) Hyperlipidemia: (15) PVD (peripheral vascular disease): (16) Congestive heart failure with LV diastolic dysfunction, NYHA class 3: (17) Anemia: (18) Diabetic nephropathy: (19) Sleep apnea: (20) Morbid obesity: (21) Hypothyroidism: (22) Secondary hyperparathyroidism (of renal origin): History of Present Illness Primary Care Provider: Phill Ramirez III, RADHA 69-year-old female presents with her after complaining of the acute onset of right flank pain. Patient notes this beginning this afternoon. She was still able to eat her dinner. However, shortly after this she was found to be much more somnolent, sleeping in her wheelchair. Has felt more tired and overall weak over the past couple of days. No known fevers, cough, chest pain, shortness of breath, or abdominal pain. Otherwise she denies any other acute concerns. On this H&P, patient says that her flank pain has been resolved with Tylenol. - As background, patient was recently hospitalized with pneumonia and hypoxia. She says she was sent home on supplemental oxygen and use that for about 2 weeks. This was weaned after an outpatient follow-up appointment. Her says that they have a home pulse ox and usually her oxygen sats are in the mid 90s. However, this evening on routine check it was 89%. - Patient has end-stage renal disease but still makes some urine. She says she normally is on a Wednesday dialysis schedule but her last dialysis was this past WednesdayDec (moved up due to some holiday travel). - On further review of systems, she does say that she has some pain around her left ankle. This also occurred only in the past few hours, worse with some ankle movement, no known injuries or trauma. - Past medical history includes anemia, chronic diastolic CHF, diabetes type 2, diabetic neuropathy, diabetic nephropathy, ESRD, GI bleed, gout, colon cancer, diabetic ulcer of foot, hypertension, hyperlipidemia, hypothyroidism, hypoxia, morbid obesity, sleep apnea, palpitations, paroxysmal A. fib, paroxysmal SVT, peripheral vascular disease, right bundle branch block, secondary hyperparathyroidism - Past surgical history includes AV fistula, right [id number] amputation, cataract surgery, bladder surgery, colectomy, colostomy and reversal, tonsillectomy of adenoidectomy, MARYCARMEN/BSO, left great toe amputation - Social history includes former smoker. Does not drink alcohol. Lives at home with family. Allergies Allergy/AdvReac Type Severity Reaction Status Date / Time No Known Allergies Allergy Verified 06/21/19 23:48 Home Medications Home Medications Medication Instructions Recorded Confirmed Type latanoprost 1 drp OPB HS 05/14/18 06/21/19 History levothyroxine 50 mcg PO QAM 05/14/18 06/21/19 History omega-3 acid ethyl esters 1 g PO DAILY 05/14/18 06/21/19 History aspirin [Aspir-81] 81 mg PO HS 07/23/18 06/21/19 History cholecalciferol (vitamin D3) 50,000 units PO WK 07/23/18 06/21/19 History metoprolol tartrate 100 mg tablet 100 mg PO BID #180 tab 12/30/18 06/21/19 Rx clopidogrel 75 mg PO QAM 01/16/19 06/21/19 History pregabalin 25 mg capsule 25 mg PO BID #60 cap 04/24/19 06/21/19 Rx insulin glargine 100 unit/mL (3 See Rx Instructions SUBCUT 05/15/19 06/21/19 Rx mL) subcutaneous pen .COMPLEX #30 ml amiodarone 200 mg PO BID 05/23/19 06/21/19 History atorvastatin 40 mg PO QAM #30 tab 05/27/19 06/21/19 Rx oxycodone-acetaminophen 5 mg-325 1 tab PO DAILY PRN #30 tab 06/13/19 06/21/19 Rx mg tablet ferric citrate [Auryxia] 2 tab PO TIDM 06/21/19 06/21/19 History furosemide 40 mg PO BID 06/21/19 06/21/19 History Past Med/Surg History Medical History (Updated 06/22/19 @ 20:35 by Mitch Small MD) Anemia (Chronic 05/24/13) AVNRT (AV alondra re-entry tachycardia) Chronic diastolic CHF (congestive heart failure) Colon cancer screening Diabetes mellitus (Resolved) Diabetes mellitus type 2 with complications (Chronic) Diabetic nephropathy (Chronic) Diabetic peripheral neuropathy associated with type 2 diabetes mellitus (Resolved) Dialysis patient (Chronic) End-stage renal disease (ESRD) ESRD on dialysis (Chronic) dialysis--tue/thur/sat GI (gastrointestinal bleed) (Resolved 05/24/13) Gout History of colon cancer (Chronic) 2008--sx, chemo History of diabetic ulcer of foot (Chronic) Hyperlipidemia (Chronic) Hypertension (Chronic) Hypothyroidism (Chronic) Hypoxia (Resolved) Left posterior fascicular block (LPFB) (Chronic) Morbid obesity with BMI of 40.0-44.9, adult (Inactive) Obesity Palpitations (Resolved) Paroxysmal atrial fibrillation (Chronic) on plavix follows with Kip Fletcher Paroxysmal supraventricular tachycardia (Chronic) PVD (peripheral vascular disease) (Chronic) RBBB (right bundle branch block) (Chronic) SIRS (systemic inflammatory response syndrome) (Resolved) Sleep apnea (Chronic) does not use CPAP Surgical History Arteriovenous fistula left arm 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) History of bilateral cataract extraction History of bladder surgery per pt half of bladder removed during colectomy History of colectomy 4 ft removed History of colonoscopy History of colostomy History of colostomy reversal History of tonsillectomy and adenoidectomy History of total hysterectomy with bilateral salpingo-oophorectomy (BSO) History of wisdom tooth extraction Hx of right BKA (Resolved) Family History (Updated 06/02/19 @ 09:13 by Teresa Asencio) Mother Breast cancer Grandfather Myocardial infarction Father Family history of diabetes mellitus Other No family history of adverse response to anesthesia Social History Preferred Language: [place] Communication Ability: Effective Visual Impairment: No Limitations Block Cutter Required: No Beliefs That Will Affect Care: None marital status: Current Living Situation: Spouse current occupational status: retired Other Information That Helps Us Care for You: No Feels Safe at Home: Yes Smoking Status: Never smoker Second Hand Exposure: No ; Hx Alcohol Use: No Hx Substance Use: No Review of Systems Review of Systems: Constitutional: Denies fevers, chills. Some acute generalized fatigue. Eyes: Denies any visual loss or diplopia ENT: Denies any ear/nose/throat pain or difficulty speaking or swallowing Respiratory: Denies any dyspnea, cough, hemoptysis Cardiovascular: Denies any chest pain or acute feeling of edema Gastrointestinal: Denies any abdominal pain, nausea/vomiting/diarrhea. Positive right flank pain. Musculoskeletal: Positive left ankle pain. Denies focal weakness. Skin: Denies any known acute rashes or lesions Neuro: Denies any headache, acute focal weakness or numbness, or difficulties with speech or swallow. Physical Exam Physical Exam: GENERAL: Awake, alert, in no acute distress HENT: Normocephalic, atraumatic. Oropharynx unremarkable. EYES: Normal conjunctiva. Sclera non-icteric. NECK: Inspection normal. Supple and full ROM. No nuchal rigidity. CARDIAC: +S1S2 RRR, no murmurs. RESPIRATORY: Clear to auscultation. No wheezes or rales. Normal respiratory effort. Nasal cannula oxygen in place. GI: +BS, soft, non-distended. No tenderness to palpation. No rebound or guarding. Positive right flank tenderness. EXTREMITIES: Has a right below the knee amputation. Patient points to her anterior/dorsal left ankle as the site of her discomfort. No reproducibility on palpation. There is generalized chronic appearing edema throughout the lower leg. No focal area of erythema or break in the skin. She has some range of mo tion of the ankle. Her left great toe is surgically absent. Otherwise toe cap refill is less than 2 seconds. NEURO: No gross neuro deficits. Results & Data Vital Signs (Past 12 Hours) Vital Signs Temp Pulse Pulse Resp BP BP Pulse Ox 06/22/19 00:37 36.4 C L 90 20 129/68 97 06/21/19 23:18 92 H 17 150/69 H 96 06/21/19 22:44 93 H 18 143/69 H 96 06/21/19 21:49 99 H 20 96 06/21/19 21:25 38.2 C H 99 H 20 185/96 H 88 L Laboratory Results 06/21/19 06/21/19 06/21/19 Range/Units 22:20 22:01 22:01 WBC (4.8-10.8) K/uL RBC (4.2-5.4) M/uL Hgb (12.0-16.0) g/dL Hct (37-47) % MCV (80-100) fL MCH (25-34) pg MCHC (32-36) g/dL RDW Std Deviation (36.4-46.3) fL RDW Coeff of Veronica (11.5-14.5) % Plt Count (130-400) K/uL MPV (7.4-10.4) fL Immature Gran % (Auto) % Neut % (Auto) % Lymph % (Auto) % Meigs % (Auto) % Eos % (Auto) % Baso % (Auto) % Immature Gran # (Auto) (0.00-0.02) K/uL Neut # (Auto) (1.4-6.5) K/uL Lymph # (Auto) (1.2-3.4) K/uL Meigs # (Auto) (0.11-0.59) K/uL Eos # (Auto) (0-0.5) K/uL Baso # (Auto) (0-0.2) K/uL PT (9.0-12.0) Seconds INR (0.9-1.1) APTT (21.0-31.0) Seconds PTT Ratio VBG pH 7.42 H (7.36-7.41) VBG pCO2 44 (38-50) mmHg VBG pO2 35 mmHg VBG HCO3 28 mmol/L VBG O2 Saturation 66.0 % VBG Base Excess 3.2 mEq/L Barometric Pressure 734.4 mm/Hg Sodium (136-145) mmol/L Potassium (3.5-5.1) mmol/L Chloride (98-107) mmol/L Carbon Dioxide (21-32) mmol/L Anion Gap (3-11) BUN (7-18) mg/dl Creatinine (0.6-1.2) mg/dl Est Cr Clr Drug Dosing ml/min Est GFR ( Amer) Est GFR (Non-Af Amer) BUN/Creatinine Ratio (10-20) Glucose (70-99) mg/dl POC Glucose (70-99) Lactate (0.4-2.0) mmol/L Calcium (8.5-10.1) mg/dl Magnesium (1.8-2.4) mg/dl Total Bilirubin (0.2-1) mg/dl AST (15-37) U/L ALT (12-78) U/L Alkaline Phosphatase (45-117) U/L Total Protein (6.4-8.2) gm/dl Albumin (3.4-5.0) gm/dl Globulin (2.5-4.0) gm/dl Albumin/Globulin Ratio (0.9-2) Beta-Hydroxybutyric Acd (0.2-2.81) mg/dl Procalcitonin 1.30 H (0-0.5) ng/ml Specimen Hemolysis Urine Color Urine Appearance (Clear) Urine pH (4.5-7.5) Ur Specific [place] (1.000-1.030) Urine Protein (Negative) Urine Glucose (UA) (Negative) Urine Ketones (Negative) Urine Blood (Negative) Urine Nitrite (Negative) Urine Bilirubin (Negative) Urine Urobilinogen (Negative) Ur Leukocyte Esterase (Negative) Urine WBC (Auto) (0-5) /hpf Urine RBC (Auto) (0-4) /hpf U Hyaline Cast (Auto) (0-5) /lpf U Epithel Cells (Auto) (0-5) /lpf Urine Bacteria (Auto) (Negative) Influenza Type A Ag Neg for Influ A (Neg) Influenza Type B Ag Neg for Influ B (Neg) 06/21/19 06/21/19 06/21/19 Range/Units 22:01 22:01 22:01 WBC (4.8-10.8) K/uL RBC (4.2-5.4) M/uL Hgb (12.0-16.0) g/dL Hct (37-47) % MCV (80-100) fL MCH (25-34) pg MCHC (32-36) g/dL RDW Std Deviation (36.4-46.3) fL RDW Coeff of Veronica (11.5-14.5) % Plt Count (130-400) K/uL MPV (7.4-10.4) fL Immature Gran % (Auto) % Neut % (Auto) % Lymph % (Auto) % Me[place] % (Auto) % Eos % (Auto) % Baso % (Auto) % Immature Gran # (Auto) (0.00-0.02) K/uL Neut # (Auto) (1.4-6.5) K/uL Lymph # (Auto) (1.2-3.4) K/uL Meigs # (Auto) (0.11-0.59) K/uL Eos # (Auto) (0-0.5) K/uL Baso # (Auto) (0-0.2) K/uL PT 11.9 (9.0-12.0) Seconds INR 1.2 H (0.9-1.1) APTT 27.5 (21.0-31.0) Seconds PTT Ratio 1.0 VBG pH (7.36-7.41) VBG pCO2 (38-50) mmHg VBG pO2 mmHg VBG HCO3 mmol/L VBG O2 Saturation % VBG Base Excess mEq/L Barometric Pressure mm/Hg Sodium 130 L (136-145) mmol/L Potassium 5.1 (3.5-5.1) mmol/L Chloride 92 L (98-107) mmol/L Carbon Dioxide 28 (21-32) mmol/L Anion Gap 11.0 (3-11) BUN 39 H (7-18) mg/dl Creatinine 8.00 H* (0.6-1.2) mg/dl Est Cr Clr Drug Dosing 8.2 ml/min Est GFR ( Amer) 5.4 Est GFR (Non-Af Amer) 4.6 BUN/Creatinine Ratio 4.8 L (10-20) Glucose 452 H* (70-99) mg/dl POC Glucose (70-99) Lactate 1.9 (0.4-2.0) mmol/L Calcium 8.4 L (8.5-10.1) mg/dl Magnesium 1.9 (1.8-2.4) mg/dl Total Bilirubin 0.5 (0.2-1) mg/dl AST 20 (15-37) U/L ALT 21 (12-78) U/L Alkaline Phosphatase 140 H (45-117) U/L Total Protein 7.6 (6.4-8.2) gm/dl Albumin 3.0 L (3.4-5.0) gm/dl Globulin 4.6 H (2.5-4.0) gm/dl Albumin/Globulin Ratio 0.7 L (0.9-2) Beta-Hydroxybutyric Acd (0.2-2.81) mg/dl Procalcitonin (0-0.5) ng/ml Specimen Hemolysis Urine Color Urine Appearance (Clear) Urine pH (4.5-7.5) Ur Specific [place] (1.000-1.030) Urine Protein (Negative) Urine Glucose (UA) (Negative) Urine Ketones (Negative) Urine Blood (Negative) Urine Nitrite (Negative) Urine Bilirubin (Negative) Urine Urobilinogen (Negative) Ur Leukocyte Esterase (Negative) Urine WBC (Auto) (0-5) /hpf Urine RBC (Auto) (0-4) /hpf U Hyaline Cast (Auto) (0-5) /lpf U Epithel Cells (Auto) (0-5) /lpf Urine Bacteria (Auto) (Negative) Influenza Type A Ag (Neg) Influenza Type B Ag (Neg) 06/21/19 06/21/19 06/21/19 Range/Units 22:01 21:42 21:40 WBC 7.82 (4.8-10.8) K/uL RBC 3.43 L (4.2-5.4) M/uL Hgb 10.9 L (12.0-16.0) g/dL Hct 32.7 L (37-47) % MCV 95.3 (80-100) fL MCH 31.8 (25-34) pg MCHC 33.3 (32-36) g/dL RDW Std Deviation 58.4 H (36.4-46.3) fL RDW Coeff of Veronica 16.8 H (11.5-14.5) % Plt Count 141 (130-400) K/uL MPV 9.9 (7.4-10.4) fL Immature Gran % (Auto) 0.4 % Neut % (Auto) 78.7 % Lymph % (Auto) 13.4 % Meigs % (Auto) 6.0 % Eos % (Auto) 1.2 % Baso % (Auto) 0.3 % Immature Gran # (Auto) 0.03 H (0.00-0.02) K/uL Neut # (Auto) 6.16 (1.4-6.5) K/uL Lymph # (Auto) 1.05 L (1.2-3.4) K/uL Meigs # (Auto) 0.47 (0.11-0.59) K/uL Eos # (Auto) 0.09 (0-0.5) K/uL Baso # (Auto) 0.02 (0-0.2) K/uL PT (9.0-12.0) Seconds INR (0.9-1.1) APTT (21.0-31.0) Seconds PTT Ratio VBG pH (7.36-7.41) VBG pCO2 (38-50) mmHg VBG pO2 mmHg VBG HCO3 mmol/L VBG O2 Saturation % VBG Base Excess mEq/L Barometric Pressure mm/Hg Sodium (136-145) mmol/L Potassium (3.5-5.1) mmol/L Chloride (98-107) mmol/L Carbon Dioxide (21-32) mmol/L Anion Gap (3-11) BUN (7-18) mg/dl Creatinine (0.6-1.2) mg/dl Est Cr Clr Drug Dosing ml/min Est GFR ( Amer) Est GFR (Non-Af Amer) BUN/Creatinine Ratio (10-20) Glucose (70-99) mg/dl POC Glucose 465 H* 426 H* (70-99) Lactate (0.4-2.0) mmol/L Calcium (8.5-10.1) mg/dl Magnesium (1.8-2.4) mg/dl Total Bilirubin (0.2-1) mg/dl AST (15-37) U/L ALT (12-78) U/L Alkaline Phosphatase (45-117) U/L Total Protein (6.4-8.2) gm/dl Albumin (3.4-5.0) gm/dl Globulin (2.5-4.0) gm/dl Albumin/Globulin Ratio (0.9-2) Beta-Hydroxybutyric Acd (0.2-2.81) mg/dl Procalcitonin (0-0.5) ng/ml Specimen Hemolysis Urine Color Urine Appearance (Clear) Urine pH (4.5-7.5) Ur Specific [place] (1.000-1.030) Urine Protein (Negative) Urine Glucose (UA) (Negative) Urine Ketones (Negative) Urine Blood (Negative) Urine Nitrite (Negative) Urine Bilirubin (Negative) Urine Urobilinogen (Negative) Ur Leukocyte Esterase (Negative) Urine WBC (Auto) (0-5) /hpf Urine RBC (Auto) (0-4) /hpf U Hyaline Cast (Auto) (0-5) /lpf U Epithel Cells (Auto) (0-5) /lpf Urine Bacteria (Auto) (Negative) Influenza Type A Ag (Neg) Influenza Type B Ag (Neg) 06/21/19 Range/Units 21:35 WBC (4.8-10.8) K/uL RBC (4.2-5.4) M/uL Hgb (12.0-16.0) g/dL Hct (37-47) % MCV (80-100) fL MCH (25-34) pg MCHC (32-36) g/dL RDW Std Deviation (36.4-46.3) fL RDW Coeff of Veronica (11.5-14.5) % Plt Count (130-400) K/uL MPV (7.4-10.4) fL Immature Gran % (Auto) % Neut % (Auto) % Lymph % (Auto) % [place] % (Auto) % Eos % (Auto) % Baso % (Auto) % Immature Gran # (Auto) (0.00-0.02) K/uL Neut # (Auto) (1.4-6.5) K/uL Lymph # (Auto) (1.2-3.4) K/uL [place] # (Auto) (0.11-0.59) K/uL Eos # (Auto) (0-0.5) K/uL Baso # (Auto) (0-0.2) K/uL PT (9.0-12.0) Seconds INR (0.9-1.1) APTT (21.0-31.0) Seconds PTT Ratio VBG pH (7.36-7.41) VBG pCO2 (38-50) mmHg VBG pO2 mmHg VBG HCO3 mmol/L VBG O2 Saturation % VBG Base Excess mEq/L Barometric Pressure mm/Hg Sodium (136-145) mmol/L Potassium (3.5-5.1) mmol/L Chloride (98-107) mmol/L Carbon Dioxide (21-32) mmol/L Anion Gap (3-11) BUN (7-18) mg/dl Creatinine (0.6-1.2) mg/dl Est Cr Clr Drug Dosing ml/min Est GFR ( Amer) Est GFR (Non-Af Amer) BUN/Creatinine Ratio (10-20) Glucose (70-99) mg/dl POC Glucose (70-99) Lactate (0.4-2.0) mmol/L Calcium (8.5-10.1) mg/dl Magnesium (1.8-2.4) mg/dl Total Bilirubin (0.2-1) mg/dl AST (15-37) U/L ALT (12-78) U/L Alkaline Phosphatase (45-117) U/L Total Protein (6.4-8.2) gm/dl Albumin (3.4-5.0) gm/dl Globulin (2.5-4.0) gm/dl Albumin/Globulin Ratio (0.9-2) Beta-Hydroxybutyric Acd (0.2-2.81) mg/dl Procalcitonin (0-0.5) ng/ml Specimen Hemolysis Urine Color Yellow Urine Appearance Turbid A (Clear) Urine pH >= 9.0 H (4.5-7.5) Ur Specific [place] 1.019 (1.000-1.030) Urine Protein 3+ H (Negative) Urine Glucose (UA) 2+ H (Negative) Urine Ketones Negative (Negative) Urine Blood 3+ H (Negative) Urine Nitrite Negative (Negative) Urine Bilirubin Negative (Negative) Urine Urobilinogen Negative (Negative) Ur Leukocyte Esterase 2+ H (Negative) Urine WBC (Auto) >30 H (0-5) /hpf Urine RBC (Auto) >30 H (0-4) /hpf U Hyaline Cast (Auto) 1-5 (0-5) /lpf U Epithel Cells (Auto) >30 H (0-5) /lpf Urine Bacteria (Auto) 1+ H (Negative) Influenza Type A Ag (Neg) Influenza Type B Ag (Neg) Medications Administered Discontinued Medications Piperacillin Sod/Tazobactam (Sod 4.5 gm/ Dextrose) 120 mls @ 200 mls/hr IV NOW STA; Protocol Stop: 06/21/19 22:27 Last Infusion: 06/21/19 23:20 Dose: 0 mls/hr Documented by: [id number] Admin: 06/21/19 22:39 Dose: 200 mls/hr Documented by: [id number] Vancomycin HCl 1,500 mg/ (Sodium Chloride) 530 mls @ 200 mls/hr IV NOW STA; Protocol Stop: 06/22/19 00:30 Last Admin: 06/21/19 23:40 Dose: 200 mls/hr Documented by: [id number] Acetaminophen (Ofirmev) 1,000 mg in 100 mls @ 400 mls/hr IV NOW STA Stop: 06/21/19 23:17 Last Infusion: 06/21/19 23:43 Dose: 0 mls/hr Documented by: [id number] Admin: 06/21/19 23:20 Dose: 400 mls/hr Documented by: [id number] Code Status & VTE Plan Code Status Full code VTE Prophylaxis Plan VTE Prophylaxis will be ordered: Yes Supervising Physician Co-Signing Physician Notes Attending addendum: I have physically seen this patient, have supervised the medical residents activities, and agree with the H&P unless as otherwise noted. Assessment and Plan: Pyelonephritis/cystitis- Follow urine culture and sensitivity. She was started on vancomycin IV and Zosyn IV in the ED, and will continue for now. ESRD on HD- Dialysis on Wednesday, and Wednesday, with recent shift to Wednesday the due to holiday. Consult nephrology. Hyperglycemia in diabetes- Glucose 452 upon admission. Patient is known noncompliant with diabetes diet and insulin administration. Would continue current dosing of Lantus, 36 units subcu in the a.m. and 66 units subcu in the p.m. Patient Accu-Cheks before meals and at bedtime with NovoLog coverage per scale. Remainder of orders and notations as noted. Resident Activity Tracking Resident Involvement: Resident Care Provided Care Provided: Adult [facility] (1) Sleep apnea Sleep apnea type: obstructive Qualified Code(s): G47.33 - Obstructive sleep apnea (adult) (pediatric) (2) Anemia Anemia type: due to chronic kidney disease Chronic kidney disease stage: on chronic dialysis Qualified Code(s): N18.6 - End stage renal disease; D63.1 - Anemia in chronic kidney disease; Z99.2 - Dependence on renal dialysis (3) Hyperlipidemia Hyperlipidemia type: mixed hyperlipidemia Qualified Code(s): E78.2 - Mixed hyperlipidemia (4) Hypothyroidism Hypothyroidism type: acquired Qualified Code(s): E03.9 - Hypothyroidism, unspecified (5) Hypertension Hypertension type: essential hypertension Qualified Code(s): I10 - Essential (primary) hypertension
[2019-06-22] MEDS ORDERED: PHARMACY GLYCEMIC MGMT CONSULT PRN (02:12)
[2019-06-22] MEDS ORDERED: INSULIN ASPART 100 UNITS/ML 3 ML PEN SC ONE (02:45)
[2019-06-22] MEDS ORDERED: GLUCOSE 40% GEL 15 GM TUBE PO PRN (02:45)
[2019-06-22] MEDS ORDERED: INSULIN HUMAN REGULAR PER UNIT 4 UNITS in SYRINGE 3.96 ML IV ONE (02:45)
[2019-06-22] MEDS ORDERED: GLUCOSE 10 TABS/TUBE PO PRN (02:45)
[2019-06-22] MEDS ORDERED: DEXTROSE 50% 50 ML SYRINGE IV PRN (02:45)
[2019-06-22] MEDS ORDERED: CARBOHYDRATES FOR HYPOGLYCEMIA PO PRN (02:45)
[2019-06-22] MEDS ORDERED: GLUCAGON FOR INJ 1 MG VIAL SQ PRN (02:45)
[2019-06-22] MEDS: PIPERACILLIN/TAZOBACTAM 4.5 GM in DEXTROSE 5% 100 ML IV SCH ×2 (06:20→17:45)
[2019-06-22] MEDS: LEVOTHYROXINE SODIUM 50 MCG TABLET PO SCH (06:21)
[2019-06-22 07:17] LABS: Calcium 8.3 mg/dl (8.5-10.1); Est GFR (African American) 5.2; Est GFR (Non-African American) 4.5; Magnesium 1.9 mg/dl (1.8-2.4); Phosphorus 6.6 mg/dl (2.5-4.9); Potassium 4.5 mmol/L (3.5-5.1)
[2019-06-22 07:22] LABS: Estimated Average Glucose 203 mg/dl; Hemoglobin A1C 8.7 % (4.5-5.6)
[2019-06-22] MEDS: AURYXIA~ORDER AWAITING ACTION SCH ×3 (07:37→23:50)
[2019-06-22] MEDS: HEPARIN SOD 5,000 UNIT/0.5 ML VIAL SQ SCH ×2 (07:38→20:45)
[2019-06-22] MEDS ORDERED: INSULIN GLARGINE SOLOSTAR 100 UNITS/ML 3 ML PEN SC ONE ×2 (07:45→21:00)
[2019-06-22] MEDS: INSULIN ASPART 100 UNITS/ML 3 ML PEN SC SCH ×5 (08:22→23:51)
[2019-06-22] MEDS ORDERED: SODIUM CHLORIDE 0.9% 1000ML 1,000 ML IV PRN (08:59)
--- NOTE | 2019-06-22 13:08 | Nephrology Consultation ---
Date of Consultation June 22, 2019 Assessment & Plan (1) End-stage renal disease (ESRD): End-stage renal disease, on hemodialysis. Admitted with change in mental status secondary to possible Pyelitis. Started on empiric antibiotic overall clinically improved and otherwise feeling better this morning. Slightly volume overloaded, blood pressure, electrolyte acceptable. --we will schedule for dialysis for 4 hours with 2K bath. --continue on phosphate binder with meals and renal caps daily --agree with continuing on empiric antibiotic pending culture --avoid IV fluid, dose medication for GFR less than 10 Will follow Thank you for allowing me to participate in your patient's care. It was a pleasure to see Umu (2) Morbid obesity: (3) Acute pyelitis: (4) Anemia due to end stage renal disease: History of Present Illness Reason for Consultation: End-stage renal disease on hemodialysis. Attending Physician: Mtich Small MD History of Present Illness Umu has end-stage renal disease on hemodialysis Wednesday, , Wednesday at [facility]. She was admitted to the hospital with change in mental status possibly secondary to UTI/pyelitis. She presented with some change in mental status and fever, chills. On admission CT abdomen pelvis was concerning for pyelitis and she was empirically started on vancomycin and Zosyn. Blood pressure has been stable. She is feeling much better today, awake, alert oriented. Denies any shortness of breath. Chest x-ray was unremarkable. Currently she is otherwise feeling well. Electrolyte has been acceptable. Blood pressure well controlled. Slightly hypervolemic but no significant shortness of breath. She is due for dialysis today. Allergies Allergy/AdvReac Type Severity Reaction Status Date / Time No Known Allergies Allergy Verified 06/21/19 23:48 Home Medications Home Medications Medication Instructions Recorded Confirmed Type latanoprost 1 drp OPB HS 05/14/18 06/21/19 History levothyroxine 50 mcg PO QAM 05/14/18 06/21/19 History omega-3 acid ethyl esters 1 g PO DAILY 05/14/18 06/21/19 History aspirin [Aspir-81] 81 mg PO HS 07/23/18 06/21/19 History cholecalciferol (vitamin D3) 50,000 units PO WK 07/23/18 06/21/19 History metoprolol tartrate 100 mg tablet 100 mg PO BID #180 tab 12/30/18 06/21/19 Rx clopidogrel 75 mg PO QAM 01/16/19 06/21/19 History pregabalin 25 mg capsule 25 mg PO BID #60 cap 04/24/19 06/21/19 Rx insulin glargine 100 unit/mL (3 See Rx Instructions SUBCUT 05/15/19 06/21/19 Rx mL) subcutaneous pen .COMPLEX #30 ml amiodarone 200 mg PO BID 05/23/19 06/21/19 History atorvastatin 40 mg PO QAM #30 tab 05/27/19 06/21/19 Rx oxycodone-acetaminophen 5 mg-325 1 tab PO DAILY PRN #30 tab 06/13/19 06/21/19 Rx mg tablet ferric citrate [Auryxia] 2 tab PO TIDM 06/21/19 06/21/19 History furosemide 40 mg PO BID 06/21/19 06/21/19 History Patient History Medical History Anemia (Chronic 05/24/13) AVNRT (AV alondra re-entry tachycardia) Chronic diastolic CHF (congestive heart failure) Colon cancer screening Diabetes mellitus (Resolved) Diabetes mellitus type 2 with complications (Chronic) Diabetic nephropathy (Chronic) Diabetic peripheral neuropathy associated with type 2 diabetes mellitus (Resolved) Dialysis patient (Chronic) ESRD on dialysis (Chronic) dialysis--tue/thur/sat GI (gastrointestinal bleed) (Resolved 05/24/13) Gout History of colon cancer (Chronic) 2008--sx, chemo History of diabetic ulcer of foot (Chronic) Hyperlipidemia (Chronic) Hypertension (Chronic) Hypothyroidism (Chronic) Hypoxia (Resolved) Left posterior fascicular block (LPFB) (Chronic) Morbid obesity with BMI of 40.0-44.9, adult (Inactive) Obesity Palpitations (Resolved) Paroxysmal atrial fibrillation (Chronic) on plavix follows with Kip Fletcher Paroxysmal supraventricular tachycardia (Chronic) PVD (peripheral vascular disease) (Chronic) RBBB (right bundle branch block) (Chronic) SIRS (systemic inflammatory response syndrome) (Resolved) Sleep apnea (Chronic) does not use CPAP Surgical History Arteriovenous fistula left arm 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) History of bilateral cataract extraction History of bladder surgery per pt half of bladder removed during colectomy History of colectomy 4 ft removed History of colonoscopy History of colostomy History of colostomy reversal History of tonsillectomy and adenoidectomy History of total hysterectomy with bilateral salpingo-oophorectomy (BSO) History of wisdom tooth extraction Hx of right BKA (Resolved) Family History (Updated 06/02/19 @ 09:13 by Teresa Asencio) Mother Breast cancer Grandfather Myocardial infarction Father Family history of diabetes mellitus Other No family history of adverse response to anesthesia Social History Preferred Language: Filipino Communication Ability: Effective Visual Impairment: No Limitations Audit Associate Required: No Beliefs That Will Affect Care: None marital status: Current Living Situation: Spouse current occupational status: retired Other Information That Helps Us Care for You: No Feels Safe at Home: Yes Smoking Status: Never smoker Second Hand Exposure: No ; Hx Alcohol Use: No Hx Substance Use: No Review of Systems Review of Systems: All systems reviewed & are unremarkable except as noted in HPI & below Physical Exam Constitutional: WD/WN, vitals as above + morbidly obese; no acute distress Respiratory: normal respiratory effort; no respiratory distress Auscultation: + diminished lung sounds Cardiovascular: Rate/Rhythm: regular rate and regular rhythm Heart Sounds: normal S1 and normal S2 Extremities: + edema Gastrointestinal (Abdomen): normal bowel sounds, soft, nontender, no hepatosplenomegaly Skin: no rashes, warm and dry Neurologic: no focal motor deficits and not confused Psychiatric: A+Ox3, euthymic affect Results & Data Vital Signs (Past 12 Hours) Vital Signs Temp Pulse Pulse Pulse Resp BP BP 06/22/19 12:40 92 H 135/58 L 06/22/19 12:20 91 H 143/69 H 06/22/19 12:00 90 140/63 06/22/19 11:40 87 148/65 H 06/22/19 11:20 90 166/66 H 06/22/19 11:00 88 160/71 H 06/22/19 10:40 87 167/76 H 06/22/19 10:25 37.0 C 89 06/22/19 10:20 86 166/110 H 06/22/19 10:14 89 156/88 H 06/22/19 07:33 37.2 C 84 18 123/74 06/22/19 04:35 36.5 C 86 19 147/79 H 06/22/19 01:54 88 06/22/19 01:48 36.8 C 88 20 107/61 Pulse Ox 06/22/19 12:40 06/22/19 12:20 06/22/19 12:00 06/22/19 11:40 06/22/19 11:20 06/22/19 11:00 06/22/19 10:40 06/22/19 10:25 06/22/19 10:20 06/22/19 10:14 06/22/19 07:33 95 06/22/19 04:35 98 06/22/19 01:54 06/22/19 01:48 94 PG Care Time/CCT Total # of Minutes Spent Total Time Spent with Patient: Total time spent is greater than 50% in coordination of care (as documented) at patient's floor/unit and/or counseling patient:
--- NOTE | 2019-06-22 14:05 | Pharmacy Report ---
Pharmacy Glycemic Short Note 2 - Date of Service June 22, 2019 - Glycemic Short BSG Results (Last 24 hours): 06/21/19 06/21/19 06/21/19 21:40 21:42 22:01 Glucose 452 H* POC Glucose 426 H* 465 H* 06/22/19 06/22/19 06/22/19 02:08 02:11 03:06 Glucose POC Glucose 381 H* 375 H* 342 H* 06/22/19 06/22/19 06/22/19 04:02 04:05 06:11 Glucose 265 H POC Glucose 310 H* 298 H OUTPATIENT ANTIDIABETIC REGIMEN: * Lantus 36 units SQ qAM, 66 units SQ qPM * Patient's A1c = 8.7% today. * However, this result is likely somewhat unreliable in ESRD patients d/t interactions between the A1c analyzing technique and high levels of urea in ESRD, reduced RBC life span, iron deficiency anemia, and EPO administration. HbA1c > 7.5% in ESRD patient may overestimate the extent of hyperglycemia in ESRD patients. ASSESSMENT: * Umu is a 69 year old type II DM with h/o ESRD on HD, known to the glycemic service from previous admissions. * She is on antibiotic treatment for pyelonephritis * She received 132-140 units of insulin per day during April 2019 admission * Fasting BSG of 265 mg/dL this am. Will give a one time dose of Lantus 40 units this morning. * I will base Novolog CF and CR on what has worked in the past PLAN FOR INPATIENT GLYCEMIC CONTROL: * Hold outpatient oral diabetes medications * Basal insulin * Lantus 40 units SQ this morning, then per scale tonight: - 50 units for bsg < 140 - 60 units for bsg 140-200 - 65 units for bsg > 200 Will reassess Lantus orders in AM * Bolus insulin * NovoLog per scale ACHS or Q6hrs while NPO * Goal Range: Low 120 mg/dL - High 150 mg/dL * Correction Factor: 10 mg/dL/unit * Nutritional / Prandial insulin per carb ratio of 1 unit per 4 grams CHO consumed PLAN FOR DISCHARGE: * pending
[2019-06-22] MEDS: ATORVASTATIN 40 MG TAB PO SCH (14:47)
[2019-06-22] MEDS: CLOPIDOGREL BISULFATE 75 MG TAB PO SCH (14:48)
[2019-06-22] MEDS: FUROSEMIDE 40 MG TAB PO SCH ×2 (14:48→17:42)
[2019-06-22] MEDS: METOPROLOL TARTRATE 100 MG TAB PO SCH ×2 (14:48→20:41)
[2019-06-22] MEDS: OMEGA-3 (PURIFIED FISH OIL) 1 GM CAP PO SCH (14:48)
[2019-06-22] MEDS: AMIODARONE 200 MG TAB PO SCH ×2 (14:48→20:40)
[2019-06-22] MEDS: PREGABALIN 25 MG CAP PO SCH ×2 (14:50→20:41)
[2019-06-22] MEDS: OXYCODONE/ACETAMINOPHEN 5mg/325mg TAB PO PRN (19:44)
[2019-06-22] MEDS ORDERED: SODIUM CHLORIDE 0.9% 1000ML 250 ML IV ONE (19:56)
--- NOTE | 2019-06-22 20:36 | Hospitalist Progress Note ---
Date of Service June 22, 2019 Assessment & Plan (1) Acute pyelonephritis: Continue Zosyn, stop Vancomycin. GNR on urine culture. right CVA tenderness and pyelitis changes on CT. Await urine cultures to determine Abx regimen (2) End-stage renal disease (ESRD): Appreciate nephrology management with dialysis. 250ml NSS given after dialysis due to hypotension. (3) Anemia due to end stage renal disease: Chronic. Not acute. (4) Paroxysmal supraventricular tachycardia: Continue amiodarone 200mg BID as per cardiology O/P note (5) Diabetes mellitus type 2 with complications: Appreciate pharmacy glycemic control HbA1C 8.7 (6) Hypoxia: Recent URI/PNA admission but managed to wean off O2 out of hospital. Aim O2 sats > 94% (7) Hypothyroidism: Levothyroxine home dose Last TSH in 07/2018 - stable. (8) PVD (peripheral vascular disease): s/p right BKA. Rx - ASA, clopidogrel, Atorvastatin (9) Diabetic neuropathy: Pregabalain home dose (10) DVT prophylaxis: Heparin 5000 units Q12H SQ (11) Discharge planning issues: PT/OT. Patient would like to return home if possible Subjective Patient seen in afternoon after dialysis. She reports admission due to generalized weakness, fatigue and right flank pain. She still produces some urine but small amounts and noticed no difference. Review of Systems Review of Systems: All systems reviewed & are unremarkable except as noted in HPI & below Physical Exam Constitutional: + morbidly obese; no acute distress Eyes: + anicteric sclerae; normal pupil size ENMT: external ear and nose normal, oropharynx normal Neck: trachea midline Respiratory: normal respiratory effort, lungs clear to auscultation no respiratory distress Cardiovascular: Rate/Rhythm: regular rate and regular rhythm Heart Sounds: normal S1, normal S2 and + murmur Extremities: + edema Gastrointestinal (Abdomen): normal bowel sounds, soft, nontender, no hepatosplenomegaly Skin: no rashes, warm and dry Neurologic: awake; no focal motor deficits and not confused Psychiatric: A+Ox3, euthymic affect Genitourinary: + CVA tenderness (right sided) Results & Data Vital Signs (Past 12 Hours) Vital Signs Temp Pulse Pulse Pulse Resp BP BP 06/22/19 20:09 36.9 C 92 H 18 96/61 L 06/22/19 16:19 100 H 06/22/19 15:25 36.7 C 101 H 19 100/56 L 06/22/19 14:41 141/84 H 06/22/19 14:14 36.3 C L 99 H 99 H 176/97 H 176/97 H 06/22/19 14:00 100 H 131/70 06/22/19 13:40 98 H 121/61 06/22/19 13:20 96 H 125/65 06/22/19 13:00 96 H 117/67 06/22/19 12:40 92 H 135/58 L 06/22/19 12:20 91 H 143/69 H 06/22/19 12:00 90 140/63 06/22/19 11:40 87 148/65 H 06/22/19 11:20 90 166/66 H 06/22/19 11:00 88 160/71 H 06/22/19 10:40 87 167/76 H 06/22/19 10:25 37.0 C 89 06/22/19 10:20 86 166/110 H 06/22/19 10:14 89 156/88 H Pulse Ox 06/22/19 20:09 90 06/22/19 16:19 06/22/19 15:25 95 06/22/19 14:41 95 06/22/19 14:14 06/22/19 14:00 06/22/19 13:40 06/22/19 13:20 06/22/19 13:00 06/22/19 12:40 06/22/19 12:20 06/22/19 12:00 06/22/19 11:40 06/22/19 11:20 06/22/19 11:00 06/22/19 10:40 06/22/19 10:25 06/22/19 10:20 06/22/19 10:14 PG Care Time/CCT Total # of Minutes Spent Total Time Spent with Patient: Total time spent is greater than 50% in coordination of care (as documented) at patient's floor/unit and/or counseling patient: (1) Hypothyroidism Hypothyroidism type: acquired Qualified Code(s): E03.9 - Hypothyroidism, unspecified (2) Diabetic neuropathy Diabetes mellitus type: type 2 Diabetes mellitus complication detail: diabetic polyneuropathy Qualified Code(s): E11.42 - Type 2 diabetes mellitus with diabetic polyneuropathy
[2019-06-22] MEDS: ASPIRIN 81 MG ECTAB PO SCH (20:45)
[2019-06-22] MEDS: LATANOPROST 0.005% OP SOLN 2.5 ML BTL OPB SCH (21:42)
[2019-06-22] MEDS: ONDANSETRON INJ 2 MG/ML 2 ML VIAL IV PRN (23:58)
[2019-06-23] MEDS: INSULIN ASPART 100 UNITS/ML 3 ML PEN SC SCH ×5 (04:08→20:39)
[2019-06-23] MEDS ORDERED: ACETAMINOPHEN 325 MG TAB PO PRN (05:53)
[2019-06-23] MEDS: PIPERACILLIN/TAZOBACTAM 4.5 GM in DEXTROSE 5% 100 ML IV SCH (05:59)
[2019-06-23] MEDS: LEVOTHYROXINE SODIUM 50 MCG TABLET PO SCH (05:59)
[2019-06-23] MEDS: ONDANSETRON INJ 2 MG/ML 2 ML VIAL IV PRN ×2 (06:10→10:01)
[2019-06-23] MEDS: METOPROLOL TARTRATE 100 MG TAB PO SCH ×2 (08:03→20:37)
[2019-06-23] MEDS: AURYXIA~ORDER AWAITING ACTION SCH (08:03)
[2019-06-23] MEDS: ATORVASTATIN 40 MG TAB PO SCH (08:04)
[2019-06-23] MEDS: CLOPIDOGREL BISULFATE 75 MG TAB PO SCH (08:04)
[2019-06-23] MEDS: FUROSEMIDE 40 MG TAB PO SCH ×2 (08:04→17:13)
[2019-06-23] MEDS: OMEGA-3 (PURIFIED FISH OIL) 1 GM CAP PO SCH (08:04)
[2019-06-23] MEDS: HEPARIN SOD 5,000 UNIT/0.5 ML VIAL SQ SCH ×2 (08:04→20:36)
[2019-06-23] MEDS: AMIODARONE 200 MG TAB PO SCH ×2 (08:04→20:36)
[2019-06-23] MEDS: PREGABALIN 25 MG CAP PO SCH ×2 (08:07→20:38)
[2019-06-23 08:28] LABS: Basophils # (auto) 0.02 K/uL (0-0.2); Basophils % (auto) 0.3 %; Eosinophils # (auto) 0.38 K/uL (0-0.5); Eosinophils % (auto) 5.5 %; Hematocrit (blood only) 33.4 % (37-47); Immature Granulocytes # (auto) 0.01 K/uL (0.00-0.02); Immature Granulocytes % (auto) 0.1 %; Lymphocytes # (auto) 0.89 K/uL (1.2-3.4); Mean Corpuscular Hemoglobin 31.6 pg (25-34); Mean Corpuscular Hgb Conc 32.9 g/dL (32-36); Mean Platelet Volume 9.5 fL (7.4-10.4); Monocytes # (auto) 0.61 K/uL (0.11-0.59); Monocytes % (auto) 8.9 %; Neutrophils # (auto) 4.94 K/uL (1.4-6.5); Neutrophils % (auto) 72.2 %; Platelet Count 148 K/uL (130-400); RDW Coefficient of Variation 17.3 % (11.5-14.5); RDW Standard Deviation 60.5 fL (36.4-46.3); Red Blood Count 3.48 M/uL (4.2-5.4); White Blood Count 6.85 K/uL (4.8-10.8)
[2019-06-23] MEDS: INSULIN GLARGINE SOLOSTAR 100 UNITS/ML 3 ML PEN SC SCH ×2 (08:28→20:40)
--- NOTE | 2019-06-23 08:31 | Pharmacy Report ---
Pharmacy Glycemic Short Note 2 - Date of Service June 23, 2019 - Glycemic Short BSG Results (Last 24 hours): 06/22/19 06/22/19 06/22/19 14:45 17:11 20:28 POC Glucose 141 H 187 H 242 H 06/22/19 06/23/19 06/23/19 23:48 04:07 08:02 POC Glucose 180 H 116 H 135 H OUTPATIENT ANTIDIABETIC REGIMEN: * Lantus 36 units SQ qAM, 66 units SQ qPM * Patient's A1c = 8.7% ASSESSMENT: 06/23: * Patient is currently receiving an average of 149 units of insulin per day * 105 units of basal insulin * 44 units of prandial/correctional insulin * BSGs ranging 141- 381 over the past 24hrs * Changes needed to insulin regimen: * AM Fasting BSG = 135. Current regimen is basal heavy. I will slightly decrease basal insulin per patient has required 85-90 units in the recent past. * Will attempt to re-distribute regimen 50%:50% basal:prandial to prevent hypo/hyperglycemia * Post-prandial BSGs are above goal therefore carb ratio will be tightened 06/22: * Umu is a 69 year old type II DM with h/o ESRD on HD, known to the glycemic service from previous admissions. * She is on antibiotic treatment for pyelonephritis * She received 132-140 units of insulin per day during April 2019 admission * Fasting BSG of 265 mg/dL this am. Will give a one time dose of Lantus 40 units this morning. * I will base Novolog CF and CR on what has worked in the past PLAN FOR INPATIENT GLYCEMIC CONTROL: * Hold outpatient oral diabetes medications * Basal insulin - slight decrease * Lantus 35 units SQ qAM * Lantus per scale SQ qHS: - 55 units for bsg < 140 - 60 units for bsg 140 mg/dL or more * Bolus insulin - tighten carb ratio * NovoLog per scale ACHS or Q6hrs while NPO * Goal Range: Low 120 mg/dL - High 150 mg/dL * Correction Factor: 10 mg/dL/unit * Nutritional / Prandial insulin per carb ratio of 1 unit per 3 grams CHO consumed PLAN FOR DISCHARGE: * A1c = 8.7% * This result is likely somewhat unreliable in ESRD patients d/t interactions between the A1c analyzing technique and high levels of urea in ESRD, reduced RBC life span, iron deficiency anemia, and EPO administration. HbA1c > 7.5% in ESRD patient may overestimate the extent of hyperglycemia in ESRD patients. * Continue close monitoring of BSG values and titrate insulin doses per outpatient provider
[2019-06-23 09:09] LABS: Albumin Globulin Ratio 0.6 (0.9-2); Albumin Level 2.8 gm/dl (3.4-5.0); BUN Creatinine Ratio 3.9 (10-20); Bilirubin,Total 0.7 mg/dl (0.2-1); Calcium 8.9 mg/dl (8.5-10.1); Creatinine Clr Calc Pharmacy 10.5 ml/min; Est GFR (African American) 7.6; Est GFR (Non-African American) 6.6; Globulin 4.9 gm/dl (2.5-4.0); Phosphorus 5.9 mg/dl (2.5-4.9); Potassium 4.3 mmol/L (3.5-5.1); Total Protein 7.7 gm/dl (6.4-8.2)
--- NOTE | 2019-06-23 09:45 | Nephrology Progress Note ---
Date of Service June 23, 2019 Assessment & Plan (1) End-stage renal disease (ESRD): End-stage renal disease, on hemodialysis. Admitted with change in mental status secondary to possible Pyelitis. Started on empiric antibiotic overall clinically improved and otherwise feeling better this morning. Urine cx grew E coli Volume status blood pressure, electrolyte acceptable. --next HD tomorrow for 4 hours. --continue on phosphate binder with meals and renal caps daily --antibiotic can be switched to oral --avoid IV fluid, dose medication for GFR less than 10 Will follow (2) Morbid obesity: (3) Acute pyelitis: (4) Anemia due to end stage renal disease: Sammi Sanz was seen and evaluated this am. Overall feeling much better. Had HD yesterday, had 3 L UF, felt nauseous after Rx and 250 ml NS bolus was given with improvement of symptoms. No Fever,chills. Review of Systems Review of Systems: All systems reviewed & are unremarkable except as noted in HPI & below Physical Exam Constitutional: WD/WN, vitals as above + morbidly obese; no acute distress Respiratory: normal respiratory effort, lungs clear to auscultation Cardiovascular: RRR, no murmur, no edema Skin: no rashes, warm and dry Neurologic: awake; no focal motor deficits and not confused Psychiatric: A+Ox3, euthymic affect Results & Data Vital Signs (Past 12 Hours) Vital Signs Temp Pulse Pulse Pulse Resp BP Pulse Ox 06/23/19 07:14 36.9 C 83 16 132/72 92 06/23/19 03:39 36.6 C 83 19 143/82 H 91 06/23/19 01:46 89 06/22/19 23:49 36.5 C 94 H 20 136/68 89 L 06/22/19 22:38 89 105/60 PG Care Time/CCT Total # of Minutes Spent Total Time Spent with Patient: Total time spent is greater than 50% in coordination of care (as documented) at patient's floor/unit and/or counseling patient:
[2019-06-23] MEDS ORDERED: CIPROFLOXACIN 400 MG/200 ML BAG IV SCH (13:00)
[2019-06-23] MEDS: CALCIUM CARBONATE 500 MG CHEWABLE TAB PO SCH (17:14)
[2019-06-23] MEDS ORDERED: POLYETHYLENE (MIRALAX) 17 GM PACK PO PRN (20:01)
[2019-06-23] MEDS: OXYCODONE/ACETAMINOPHEN 5mg/325mg TAB PO PRN (20:33)
[2019-06-23] MEDS: LATANOPROST 0.005% OP SOLN 2.5 ML BTL OPB SCH (20:34)
[2019-06-23] MEDS: ASPIRIN 81 MG ECTAB PO SCH (20:35)
--- NOTE | 2019-06-23 23:21 | Hospitalist Progress Note ---
Date of Service June 23, 2019 Assessment & Plan (1) Acute pyelonephritis: Initial plan to switch Zosyn to ciprofloxacin and she had one dose of this however on further review of EKGs and concurrent amiodarone use will use ceftriaxone and switch to cefdinir once blood culture negative after 48 hours. E. coli pansensitive on urine culture. (2) End-stage renal disease (ESRD): Appreciate nephrology management with dialysis. (3) Anemia due to end stage renal disease: Chronic. Not acute. (4) Paroxysmal supraventricular tachycardia: Continue amiodarone 200mg BID as per cardiology O/P note (5) Diabetes mellitus type 2 with complications: Appreciate pharmacy glycemic control HbA1C 8.7 (6) Hypoxia: Now resolved off O2. (7) Hypothyroidism: Levothyroxine home dose Last TSH in 07/2018 - stable. (8) PVD (peripheral vascular disease): s/p right BKA. Rx - ASA, clopidogrel, Atorvastatin (9) Diabetic neuropathy: Pregabalain home dose (10) DVT prophylaxis: Heparin 5000 units Q12H SQ (11) Discharge planning issues: PT/OT. Patient would like to return home if possible Subjective Patient feeling better since yesterday. No right flank pain unless presses on it. No change in her urine. Review of Systems Review of Systems: All systems reviewed & are unremarkable except as noted in HPI & below Physical Exam Constitutional: + morbidly obese; no acute distress Eyes: + anicteric sclerae; normal pupil size ENMT: external ear and nose normal, oropharynx normal Neck: trachea midline Respiratory: normal respiratory effort, lungs clear to auscultation no respiratory distress Cardiovascular: Rate/Rhythm: regular rate and regular rhythm Heart Sounds: normal S1, normal S2 and + murmur Extremities: + edema Skin: no rashes, warm and dry Neurologic: awake; no focal motor deficits and not confused Psychiatric: A+Ox3, euthymic affect Results & Data Vital Signs (Past 12 Hours) Vital Signs Temp Pulse Pulse Resp BP Pulse Ox 06/23/19 19:36 36.5 C 81 20 151/73 H 95 06/23/19 16:00 73 06/23/19 11:30 36.7 C 79 16 109/68 96 PG Care Time/CCT Total # of Minutes Spent Total Time Spent with Patient: Total time spent is greater than 50% in coordination of care (as documented) at patient's floor/unit and/or counseling patient: (1) Hypothyroidism Hypothyroidism type: acquired Qualified Code(s): E03.9 - Hypothyroidism, unspecified (2) Diabetic neuropathy Diabetes mellitus type: type 2 Diabetes mellitus complication detail: diabetic polyneuropathy Qualified Code(s): E11.42 - Type 2 diabetes mellitus with diabetic polyneuropathy
--- NOTE | 2019-06-24 04:52 | Billing Data ---
Date of Service June 24, 2019 Coding Level of Care Code 51303 Initial Inpt Care Lvl 3
[2019-06-24] MEDS: LEVOTHYROXINE SODIUM 50 MCG TABLET PO SCH (05:50)
[2019-06-24] MEDS ORDERED: SODIUM CHLORIDE 0.9% 1000ML 1,000 ML IV PRN (07:00)
[2019-06-24] MEDS: INSULIN ASPART 100 UNITS/ML 3 ML PEN SC SCH ×4 (08:28→20:57)
[2019-06-24] MEDS: INSULIN GLARGINE SOLOSTAR 100 UNITS/ML 3 ML PEN SC SCH ×2 (08:29→20:55)
[2019-06-24 08:55] LABS: Basophils # (auto) 0.02 K/uL (0-0.2); Basophils % (auto) 0.3 %; Eosinophils # (auto) 0.41 K/uL (0-0.5); Eosinophils % (auto) 6.7 %; Hematocrit (blood only) 33.8 % (37-47); Hemoglobin 11.2 g/dL (12.0-16.0); Immature Granulocytes # (auto) 0.01 K/uL (0.00-0.02); Immature Granulocytes % (auto) 0.2 %; Lymphocytes # (auto) 1.31 K/uL (1.2-3.4); Lymphocytes % (auto) 21.3 %; Mean Corpuscular Hemoglobin 31.8 pg (25-34); Mean Corpuscular Hgb Conc 33.1 g/dL (32-36); Mean Platelet Volume 9.4 fL (7.4-10.4); Monocytes # (auto) 0.56 K/uL (0.11-0.59); Monocytes % (auto) 9.1 %; Neutrophils # (auto) 3.85 K/uL (1.4-6.5); Neutrophils % (auto) 62.4 %; Platelet Count 166 K/uL (130-400); RDW Coefficient of Variation 17.2 % (11.5-14.5); RDW Standard Deviation 60.5 fL (36.4-46.3); Red Blood Count 3.52 M/uL (4.2-5.4); White Blood Count 6.16 K/uL (4.8-10.8)
[2019-06-24] MEDS ORDERED: CEFDINIR 300 MG CAP PO SCH ×2 (09:00→16:00)
[2019-06-24 09:33] LABS: BUN Creatinine Ratio 5.1 (10-20); Calcium 9.2 mg/dl (8.5-10.1); Creatinine Clr Calc Pharmacy 8.5 ml/min; Est GFR (African American) 5.7; Est GFR (Non-African American) 4.9; Potassium 4.2 mmol/L (3.5-5.1)
--- NOTE | 2019-06-24 11:18 | Nephrology Progress Note ---
Date of Service June 24, 2019 Assessment & Plan (1) End-stage renal disease (ESRD): End-stage renal disease, on hemodialysis. Admitted with change in mental status secondary to possible Pyelitis. Started on empiric antibiotic overall clinically improved and otherwise feeling better this morning. Urine cx grew E coli Volume status blood pressure, electrolyte acceptable. Antibiotics switched to orally. --next HD Wednesday at outpatient dialysis unit --continue on phosphate binder with meals and renal caps daily --avoid IV fluid, dose medication for GFR less than 10 Will follow (2) Morbid obesity: (3) Acute pyelitis: (4) Anemia due to end stage renal disease: Sammi Sanz was seen and evaluated during dialysis this am. Tolerating dialysis well, blood pressure stable, denies any leg cramp. Review of Systems Review of Systems: All systems reviewed & are unremarkable except as noted in HPI & below Physical Exam Constitutional: + morbidly obese and comfortable; no acute distress Respiratory: normal respiratory effort, lungs clear to auscultation Cardiovascular: RRR, no murmur, no edema Neurologic: moves all extremities and awake; not confused Psychiatric: A+Ox3, euthymic affect Results & Data Vital Signs (Past 12 Hours) Vital Signs Temp Pulse Pulse Pulse Resp BP BP 06/24/19 11:00 79 99/55 L 06/24/19 10:40 82 140/68 06/24/19 10:20 81 108/56 L 06/24/19 10:00 81 119/56 L 06/24/19 09:40 78 128/57 L 06/24/19 09:20 74 119/60 06/24/19 09:03 36.5 C 81 06/24/19 07:32 74 06/24/19 07:14 36.4 C L 75 16 145/79 H 06/24/19 04:21 36.3 C L 76 17 166/85 H 06/24/19 00:00 75 06/23/19 23:27 36.6 C 61 19 157/88 H Pulse Ox 06/24/19 11:00 06/24/19 10:40 06/24/19 10:20 06/24/19 10:00 06/24/19 09:40 06/24/19 09:20 06/24/19 09:03 06/24/19 07:32 06/24/19 07:14 94 06/24/19 04:21 94 06/24/19 00:00 06/23/19 23:27 94 PG Care Time/CCT Total # of Minutes Spent Total Time Spent with Patient: Total time spent is greater than 50% in coordi nation of care (as documented) at patient's floor/unit and/or counseling patient:
[2019-06-24] MEDS: FUROSEMIDE 40 MG TAB PO SCH ×2 (14:23→17:58)
[2019-06-24] MEDS: ATORVASTATIN 40 MG TAB PO SCH (14:25)
[2019-06-24] MEDS: AMIODARONE 200 MG TAB PO SCH ×2 (14:25→20:59)
[2019-06-24] MEDS: METOPROLOL TARTRATE 100 MG TAB PO SCH ×2 (14:25→20:59)
[2019-06-24] MEDS: OMEGA-3 (PURIFIED FISH OIL) 1 GM CAP PO SCH (14:26)
[2019-06-24] MEDS: CLOPIDOGREL BISULFATE 75 MG TAB PO SCH (14:27)
[2019-06-24] MEDS: CALCIUM CARBONATE 500 MG CHEWABLE TAB PO SCH ×3 (14:30→17:58)
[2019-06-24] MEDS: HEPARIN SOD 5,000 UNIT/0.5 ML VIAL SQ SCH ×2 (14:31→20:55)
[2019-06-24] MEDS: PREGABALIN 25 MG CAP PO SCH ×2 (14:34→21:03)
--- NOTE | 2019-06-24 14:49 | Pharmacy Report ---
Pharmacy Glycemic Short Note 2 - Date of Service June 24, 2019 - Glycemic Short BSG Results (Last 24 hours): 06/23/19 06/23/19 06/24/19 16:53 20:38 07:36 Glucose POC Glucose 253 H 224 H 110 H 06/24/19 06/24/19 08:25 13:31 Glucose 120 H POC Glucose 150 H OUTPATIENT ANTIDIABETIC REGIMEN: * Lantus 36 units SQ qAM, 66 units SQ qPM * Patient's A1c = 8.7% ASSESSMENT: 06/24: * Patient is currently receiving an average of 147 units of insulin per day * 95 units of basal insulin * 52 units of prandial/correctional insulin * BSGs ranging 116-253 over the past 24hrs * AM Fasting BSG = 110. No changes will be made to basal insulin. * Post-prandial BSGs remain above goal despite tightening carb ratio yesterday. Will tighten correction factor today. 06/23: * Patient is currently receiving an average of 149 units of insulin per day * 105 units of basal insulin * 44 units of prandial/correctional insulin * BSGs ranging 141- 381 over the past 24hrs * Changes needed to insulin regimen: * AM Fasting BSG = 135. Current regimen is basal heavy. I will slightly decrease basal insulin per patient has required 85-90 units in the recent past. * Will attempt to re-distribute regimen 50%:50% basal:prandial to prevent hypo/hyperglycemia * Post-prandial BSGs are above goal therefore carb ratio will be tightened 06/22: * Umu is a 69 year old type II DM with h/o ESRD on HD, known to the glycemic service from previous admissions. * She is on antibiotic treatment for pyelonephritis * She received 132-140 units of insulin per day during April 2019 admission * Fasting BSG of 265 mg/dL this am. Will give a one time dose of Lantus 40 units this morning. * I will base Novolog CF and CR on what has worked in the past PLAN FOR INPATIENT GLYCEMIC CONTROL: * Hold outpatient oral diabetes medications * Basal insulin * Lantus 35 units SQ qAM * Lantus per scale SQ qHS: - 55 units for bsg < 160 - 60 units for bsg 160 mg/dL or more * Bolus insulin - tighten correction factor * NovoLog per scale ACHS or Q6hrs while NPO * Lower Goal Range: Low 110 mg/dL - High 140 mg/dL * Correction Factor: 8 mg/dL/unit * Nutritional / Prandial insulin per carb ratio of 1 unit per 3 grams CHO consumed PLAN FOR DISCHARGE: * A1c = 8.7% * This result is likely somewhat unreliable in ESRD patients d/t interactions between the A1c analyzing technique and high levels of urea in ESRD, reduced RBC life span, iron deficiency anemia, and EPO administration. HbA1c > 7.5% in ESRD patient may overestimate the extent of hyperglycemia in ESRD patients. * Continue close monitoring of BSG values and titrate insulin doses per outpatient provider
[2019-06-24] MEDS ORDERED: POLYETHYLENE (MIRALAX) 17 GM PACK PO ONE (16:45)
[2019-06-24] MEDS: ASPIRIN 81 MG ECTAB PO SCH (20:57)
[2019-06-24] MEDS ORDERED: SENNA 8.6 MG TAB PO SCH (21:00)
[2019-06-24] MEDS: LATANOPROST 0.005% OP SOLN 2.5 ML BTL OPB SCH ×2 (21:00→21:07)
[2019-06-24] MEDS ORDERED: CIPROFLOXACIN 400 MG/200 ML BAG IV SCH (21:00)
[2019-06-24] MEDS: OXYCODONE/ACETAMINOPHEN 5mg/325mg TAB PO PRN (21:58)
--- NOTE | 2019-06-24 23:09 | Hospitalist Progress Note ---
Date of Service June 24, 2019 Assessment & Plan (1) Pyelonephritis: (2) Cystitis: (3) ESRD on dialysis: (4) Hypoxia: (5) Left ankle pain: (6) Hyponatremia: (7) Hyperkalemia: (8) Hyperglycemia: (9) Diabetes mellitus type 2 with complications: Appreciate pharmacy glycemic control HbA1C 8.7 (10) Elevated alkaline phosphatase level: (11) Cholelithiasis: (12) Ventral hernia: (13) Hypertension: (14) Hyperlipidemia: (15) PVD (peripheral vascular disease): s/p right BKA. Rx - ASA, clopidogrel, Atorvastatin (16) Congestive heart failure with LV diastolic dysfunction, NYHA class 3: (17) Anemia: (18) Diabetic nephropathy: (19) Sleep apnea: (20) Morbid obesity: (21) Hypothyroidism: Levothyroxine home dose Last TSH in 07/2018 - stable. (22) Secondary hyperparathyroidism (of renal origin): Results & Data Vital Signs (Past 12 Hours) Vital Signs Temp Pulse Pulse Pulse Resp BP BP 06/24/19 23:01 36.5 C 82 16 137/69 06/24/19 20:50 83 148/70 H 06/24/19 15:01 36.7 C 83 16 122/70 06/24/19 13:26 36.6 C 81 19 148/69 H 06/24/19 13:00 36.4 C L 80 148/70 H 06/24/19 12:40 80 158/73 H 06/24/19 12:20 79 132/64 06/24/19 12:00 77 120/60 06/24/19 11:40 76 130/60 06/24/19 11:20 79 108/54 L Pulse Ox 06/24/19 23:01 92 06/24/19 20:50 06/24/19 15:01 92 06/24/19 13:26 94 06/24/19 13:00 06/24/19 12:40 06/24/19 12:20 06/24/19 12:00 06/24/19 11:40 06/24/19 11:20 PG Care Time/CCT Total # of Minutes Spent Total Time Spent with Patient: Total time spent is greater than 50% in coordination of care (as documented) at patient's floor/unit and/or counseling patient: (1) Hypertension Hypertension type: essential hypertension Qualified Code(s): I10 - Essential (primary) hypertension (2) Hyperlipidemia Hyperlipidemia type: mixed hyperlipidemia Qualified Code(s): E78.2 - Mixed hyperlipidemia (3) Anemia Anemia type: due to chronic kidney disease Chronic kidney disease stage: on chronic dialysis Qualified Code(s): N18.6 - End stage renal disease; D63.1 - Anemia in chronic kidney disease; Z99.2 - Dependence on renal dialysis (4) Sleep apnea Sleep apnea type: obstructive Qualified Code(s): G47.33 - Obstructive sleep apnea (adult) (pediatric) (5) Hypothyroidism Hypothyroidism type: acquired Qualified Code(s): E03.9 - Hypothyroidism, unspecified
--- NOTE | 2019-06-24 23:14 | Hospitalist Progress Note ---
Date of Service June 24, 2019 Assessment & Plan (1) Pyelonephritis: Continue cefdinir. Plan for discharge tomorrow. (2) ESRD on dialysis: (3) Hypoxia: Now resolved (4) Diabetes mellitus type 2 with complications: Appreciate pharmacy glycemic control. Uncontrolled on admission and patient and very concerned about being discharged "too early like they were last time". Interestingly her HbA1C actually appears to be improved although accuracy of this test in dialysis patients is questionable. Will start Novolog with meal coverage and correction factor on discharge. HbA1C 8.7 (5) Hypertension: (6) Hyperlipidemia: (7) PVD (peripheral vascular disease): s/p right BKA. Rx - ASA, clopidogrel, Atorvastatin (8) Congestive heart failure with LV diastolic dysfunction, NYHA class 3: (9) Anemia: (10) Sleep apnea: (11) Morbid obesity: (12) Hypothyroidism: Levothyroxine home dose Last TSH in 07/2018 - stable. (13) Secondary hyperparathyroidism (of renal origin): Results & Data Vital Signs (Past 12 Hours) Vital Signs Temp Pulse Pulse Pulse Resp BP BP 06/24/19 23:01 36.5 C 82 16 137/69 06/24/19 20:50 83 148/70 H 06/24/19 15:01 36.7 C 83 16 122/70 06/24/19 13:26 36.6 C 81 19 148/69 H 06/24/19 13:00 36.4 C L 80 148/70 H 06/24/19 12:40 80 158/73 H 06/24/19 12:20 79 132/64 06/24/19 12:00 77 120/60 06/24/19 11:40 76 130/60 06/24/19 11:20 79 108/54 L Pulse Ox 06/24/19 23:01 92 06/24/19 20:50 06/24/19 15:01 92 06/24/19 13:26 94 06/24/19 13:00 06/24/19 12:40 06/24/19 12:20 06/24/19 12:00 06/24/19 11:40 06/24/19 11:20 PG Care Time/CCT Total # of Minutes Spent Total Time Spent with Patient: Total time spent is greater than 50% in coordination of care (as documented) at patient's floor/unit and/or counseling patient: (1) Hypertension Hypertension type: essential hypertension Qualified Code(s): I10 - Essential (primary) hypertension (2) Hyperlipidemia Hyperlipidemia type: mixed hyperlipidemia Qualified Code(s): E78.2 - Mixed hyperlipidemia (3) Anemia Anemia type: due to chronic kidney disease Chronic kidney disease stage: on chronic dialysis Qualified Code(s): N18.6 - End stage renal disease; D63.1 - Anemia in chronic kidney disease; Z99.2 - Dependence on renal dialysis (4) Sleep apnea Sleep apnea type: obstructive Qualified Code(s): G47.33 - Obstructive sleep apnea (adult) (pediatric) (5) Hypothyroidism Hypothyroidism type: acquired Qualified Code(s): E03.9 - Hypothyroidism, unspecified
[2019-06-25] MEDS: ONDANSETRON INJ 2 MG/ML 2 ML VIAL IV PRN (00:26)
[2019-06-25] MEDS: LEVOTHYROXINE SODIUM 50 MCG TABLET PO SCH (05:54)
[2019-06-25 06:11] LABS: Basophils # (auto) 0.03 K/uL (0-0.2); Basophils % (auto) 0.5 %; Eosinophils # (auto) 0.38 K/uL (0-0.5); Eosinophils % (auto) 6.1 %; Hematocrit (blood only) 30.9 % (37-47); Hemoglobin 10.2 g/dL (12.0-16.0); Immature Granulocytes # (auto) 0.02 K/uL (0.00-0.02); Immature Granulocytes % (auto) 0.3 %; Lymphocytes # (auto) 1.79 K/uL (1.2-3.4); Lymphocytes % (auto) 28.7 %; Mean Corpuscular Volume 96.9 fL (80-100); Mean Platelet Volume 9.5 fL (7.4-10.4); Monocytes # (auto) 0.72 K/uL (0.11-0.59); Monocytes % (auto) 11.5 %; Neutrophils % (auto) 52.9 %; Platelet Count 155 K/uL (130-400); RDW Coefficient of Variation 17.3 % (11.5-14.5); RDW Standard Deviation 61.3 fL (36.4-46.3); Red Blood Count 3.19 M/uL (4.2-5.4); White Blood Count 6.24 K/uL (4.8-10.8)
[2019-06-25 06:53] LABS: Calcium 8.7 mg/dl (8.5-10.1); Creatinine Clr Calc Pharmacy 12.3 ml/min; Est GFR (African American) 8.9; Est GFR (Non-African American) 7.6; Potassium 3.9 mmol/L (3.5-5.1)
[2019-06-25] MEDS: INSULIN ASPART 100 UNITS/ML 3 ML PEN SC SCH ×2 (08:59→12:58)
[2019-06-25] MEDS ORDERED: ERGOCALCIFEROL 50,000 UNITS CAP PO SCH (09:00)
[2019-06-25] MEDS ORDERED: CEFDINIR 300 MG CAP PO SCH (09:00)
[2019-06-25] MEDS: HEPARIN SOD 5,000 UNIT/0.5 ML VIAL SQ SCH (09:00)
[2019-06-25] MEDS: FUROSEMIDE 40 MG TAB PO SCH (09:09)
[2019-06-25] MEDS: CLOPIDOGREL BISULFATE 75 MG TAB PO SCH (09:10)
[2019-06-25] MEDS: AMIODARONE 200 MG TAB PO SCH (09:10)
[2019-06-25] MEDS: ATORVASTATIN 40 MG TAB PO SCH (09:10)
[2019-06-25] MEDS: OMEGA-3 (PURIFIED FISH OIL) 1 GM CAP PO SCH (09:12)
[2019-06-25] MEDS: METOPROLOL TARTRATE 100 MG TAB PO SCH (09:15)
[2019-06-25] MEDS: PREGABALIN 25 MG CAP PO SCH (09:15)
[2019-06-25] MEDS: CALCIUM CARBONATE 500 MG CHEWABLE TAB PO SCH ×2 (10:00→13:00)
[2019-06-25] MEDS: INSULIN GLARGINE SOLOSTAR 100 UNITS/ML 3 ML PEN SC SCH (10:01)
--- NOTE | 2019-06-25 10:58 | Nephrology Progress Note ---
Date of Service June 25, 2019 Assessment & Plan (1) End-stage renal disease (ESRD): End-stage renal disease, on hemodialysis. Admitted with change in mental status secondary to possible Pyelitis. Started on empiric antibiotic overall clinically improved and otherwise feeling better this morning. Urine cx grew E coli Volume status blood pressure, electrolyte acceptable. Antibiotics switched to orally. Overall she is feeling well and seems like ready to be discharged. --Although her next dialysis would be Wednesday as her regular schedule however considering holiday schedule she will need dialysis tomorrow either at outpatient setting if the she gets discharged or here if she is inpatient. --continue on phosphate binder with meals and renal caps daily --avoid IV fluid, dose medication for GFR less than 10 Will follow (2) Morbid obesity: (3) Acute pyelitis: (4) Anemia due to end stage renal disease: Sammi Sanz was seen and examined in her room this morning with at bedside. Overall she feels better and feels like she is at her baseline and ready to go home but her does not feel she is ready. No fever or chills. Breathing comfortably in room air. Continuing on oral antibiotic. Review of Systems Review of Systems: All systems reviewed & are unremarkable except as noted in HPI & below Physical Exam Constitutional: WD/WN, vitals as above + morbidly obese and comfortable; no acute distress Respiratory: normal respiratory effort, lungs clear to auscultation normal respiratory effort; no respiratory distress Auscultation: + diminished lung sounds Cardiovascular: RRR, no murmur, no edema Rate/Rhythm: regular rate and regular rhythm Heart Sounds: normal S1 and normal S2 Extremities: + edema Skin: no rashes, warm and dry Neurologic: moves all extremities and awake; no focal motor deficits and not confused Psychiatric: A+Ox3, euthymic affect Results & Data Vital Signs (Past 12 Hours) Vital Signs Temp Pulse Resp BP Pulse Ox 06/25/19 07:21 36.6 C 75 19 146/56 H 98 06/24/19 23:01 36.5 C 82 16 137/69 92 PG Care Time/CCT Total # of Minutes Spent Total Time Spent with Patient: Total time spent is greater than 50% in coordination of care (as documented) at patient's floor/unit and/or counseling patient:
--- NOTE | 2019-06-25 13:17 | Discharge Summary ---
Date of Service June 25, 2019 Admission HPI Per Admitting Provider 69-year-old female presents with her after complaining of the acute onset of right flank pain. Patient notes this beginning this afternoon. She was still able to eat her dinner. However, shortly after this she was found to be much more somnolent, sleeping in her wheelchair. Has felt more tired and overall weak over the past couple of days. No known fevers, cough, chest pain, shortness of breath, or abdominal pain. Otherwise she denies any other acute concerns. On this H&P, patient says that her flank pain has been resolved with Tylenol. - As background, patient was recently hospitalized with pneumonia and hypoxia. She says she was sent home on supplemental oxygen and use that for about 2 weeks. This was weaned after an outpatient follow-up appointment. Her says that they have a home pulse ox and usually her oxygen sats are in the mid 90s. However, this evening on routine check it was 89%. - Patient has end-stage renal disease but still makes some urine. She says she normally is on a Wednesday dialysis schedule but her last dialysis was this past Wednesday 23Dec (moved up due to some holiday travel). - On further review of systems, she does say that she has some pain around her left ankle. This also occurred only in the past few hours, worse with some ankle movement, no known injuries or trauma. - Past medical history includes anemia, chronic diastolic CHF, diabetes type 2, diabetic neuropathy, diabetic nephropathy, ESRD, GI bleed, gout, colon cancer, diabetic ulcer of foot, hypertension, hyperlipidemia, hypothyroidism, hypoxia, morbid obesity, sleep apnea, palpitations, paroxysmal A. fib, paroxysmal SVT, peripheral vascular disease, right bundle branch block, secondary hyperparathyroidism - Past surgical history includes AV fistula, right [id number] amputation, cataract surgery, bladder surgery, colectomy, colostomy and reversal, tonsillectomy of adenoidectomy, MARYCARMEN/BSO, left great toe amputation - Social history includes former smoker. Does not drink alcohol. Lives at home with family. Discharge Data Allergies Allergy/AdvReac Type Severity Reaction Status Date / Time No Known Allergies Allergy Verified 06/21/19 23:48 Consultations 06/21/19 23:17 ED Decision to Admit Stat 06/22/19 01:48 Consult Nephrology Routine Ordered Studies 06/21/19 21:42 CT abd pelvis wo con Stat Hospital Course (1) Pyelonephritis: Continue cefdinir. Plan for discharge tomorrow. (2) ESRD on dialysis: (3) Hypoxia: Now resolved (4) Diabetes mellitus type 2 with complications: Appreciate pharmacy glycemic control. Uncontrolled on admission and patient and very concerned about being discharged "too early like they were last time". Interestingly her HbA1C actually appears to be improved although accuracy of this test in dialysis patients is questionable. Will start Novolog with meal coverage and correction factor on discharge. HbA1C 8.7 (5) Hypertension: (6) Hyperlipidemia: (7) PVD (peripheral vascular disease): s/p right BKA. Rx - ASA, clopidogrel, Atorvastatin (8) Congestive heart failure with LV diastolic dysfunction, NYHA class 3: (9) Anemia: (10) Sleep apnea: (11) Morbid obesity: (12) Hypothyroidism: Levothyroxine home dose Last TSH in 07/2018 - stable. (13) Secondary hyperparathyroidism (of renal origin): Discharge Plan Discharge Items Patient Disposition: Home - Self-Care Reason For Visit: PYELONEPHRITIS, ESRD Discharge Diagnosis: Acute pyelonephritis Hyperglycemia in setting of Type 2 diabetes mellitus Activity: Resume your previous activity Non-emergency contact: Primary Care Provider Call non-emergency contact if: you have any medication questions, your symptoms worsen and your temperature is above 101 Follow-up/Referrals: Phill Ramirez III, CRNP [Primary Care Provider] - Diet: Carb Consistent or DM2 and Dialysis Renal Addtl Attending Provider Instructions: You were admitted to [facility] from June 22 to 25 June 2019 due to altered mental state and right flank pain. You were diagnosed with acute pyelonephritis (kidney infection) and treated with intravenous antibiotics, now switched to oral cefdinir on discharge. This should be taken after dialysis days on those days. Physical therapy recommended home physical therapy which you will be contact about. If you do not hear anything in the next 2 days please given the hospital a call on [phone] and ask to speak to the [facility] nurse co-ordinator. We also discussed your insulin regimen and will restart you on Novolog pen to cover carbohydrates with meals: start with 15 units for breakfast, 15 units for lunch, 20 units for dinner and 5 units for evening snack. Do not take your carbohydrate coverage if you do not eat. Take additional Novolog before each meal and in the evening to correct for high levels. If glucose 150-199 give 4 units If glucose 200-249 give 8 units If glucose 250-299 give 12 units If glucose 300-349 give 16 units If glucose 350-399 give 20 units If glucose 400+ give 24 units and call PCP. Consider taking your glucose level after eating some meals to determine if you require more or less insulin for each meal. Please call your primary care provider if you glucose level is > 400 or < 80. Please follow up with your primary care provider for further adjustments of your insulin. Pending Studies at Discharge: No Stand-Alone Forms: [email or web address], Smoking Cessation Medications and DC Order Prescriptions: New insulin aspart U-100 100 unit/mL (3 mL) insulin pen See Rx Instructions .ROUTE .COMPLEX Qty: 15 RF: 0 insulin aspart U-100 100 unit/mL (3 mL) insulin pen See Rx Instructions .ROUTE .COMPLEX Qty: 15 RF: 0 cefdinir 300 mg capsule 300 mg PO UD 10 Days Qty: 6 RF: 0 Continued metoprolol tartrate 100 mg tablet 100 mg PO BID Qty: 180 RF: 1 pregabalin 25 mg capsule 25 mg PO BID Qty: 60 RF: 2 oxycodone-acetaminophen [Percocet] 5-325 mg tablet 1 tab PO DAILY PRN (Reason: Pain) Qty: 30 RF: 0 Lantus Solostar U-100 Insulin 100 unit/mL (3 mL) insulin pen See Rx Instructions subcut .COMPLEX Qty: 30 RF: 5 latanoprost 0.005 % drops 1 drp OPB HS RF: 0 levothyroxine 50 mcg tablet 50 mcg PO QAM RF: 0 omega-3 acid ethyl esters 1 gram capsule 1 g PO DAILY RF: 0 aspirin [Aspir-81] 81 mg Tablet,Delayed Release (Dr/Ec) 81 mg PO HS RF: 0 cholecalciferol (vitamin D3) 50,000 unit Tablet 50,000 units PO WK RF: 0 Auryxia 210 mg iron tablet 2 tab PO TIDM RF: 0 furosemide 40 mg tablet 40 mg PO BID RF: 0 clopidogrel 75 mg tablet 75 mg PO QAM RF: 0 amiodarone 200 mg tablet 200 mg PO BID RF: 0 atorvastatin 40 mg Tablet 40 mg PO QAM Qty: 30 RF: 0 Discharge Orders: Discharge Order (Routine); Ordered 06/25/19 Ordered By: Mitch Shaikh/Other Patient Handouts: Diabetes Resources, Insulin Injected, Diabetes Healthy Meals, Diabetes Carbs, Diabetes Eating Out, Diabetes Exercise Get Started, Diabetes Meal Planning Admission Data Admit Date/Time: 06/22/19 00:58 Attending Provider: Mitch Small Admit Provider: Anastacio Stearns Primary Care Provider: Phill Ramirez III Other Providers: Ranjit Ren ; Annette Quiles
[2019-06-26] MEDS ORDERED: SODIUM CHLORIDE 0.9% 1000ML 1,000 ML IV PRN (07:00)
== END 2019-06-25 14:08 | disposition home health service (06) | DRG 690 ==
LOC: ED 21:14 → 2W 06-22 00:58 → SUATTDRO 06-22 00:58 → 2W 06-22 01:26 → 3N 06-24 08:25

== ENCOUNTER 2019-08-02 18:30 | Inpatient (IN) ==
[2019-08-02] MEDS ORDERED: SODIUM CHLORIDE 0.9% 1000ML 1,000 ML IV ONE (18:48)
[2019-08-02] MEDS ORDERED: ACETAMINOPHEN 500 MG TAB PO STA (18:48)
[2019-08-02] MEDS ORDERED: LEVOFLOXACIN/D5W 750 MG/150 ML BAG IV SCH (19:00)
--- NOTE | 2019-08-02 19:08 | XRay Report ---
XR chest 1V portable CLINICAL HISTORY: SEPSIS COMPARISON STUDY: Chest radiograph June 21, 2019. FINDINGS: No pneumothorax is noted. There is a possible trace left pleural effusion. Mild left basila r opacity is noted. Right lung is clear. There is no evidence for pulmonary edema. Cardiomegaly is un changed. IMPRESSION: Mild left basilar opacity which may reflect consolidation or atelectasis. Possible trace left pleural effusion. Radiographic follow up is recommended. ACT 112: Negative or not required by law. Electronically signed by: Devan Galeano M.D. 08/02/2019 7:07 PM
[2019-08-02 19:11] LABS: Basophils # (auto) 0.01 K/uL (0-0.2); Basophils % (auto) 0.1 %; Eosinophils # (auto) 0.07 K/uL (0-0.5); Eosinophils % (auto) 0.9 %; Hematocrit (blood only) 31.2 % (37-47); Hemoglobin 10.1 g/dL (12.0-16.0); Immature Granulocytes # (auto) 0.01 K/uL (0.00-0.02); Immature Granulocytes % (auto) 0.1 %; Lymphocytes # (auto) 1.18 K/uL (1.2-3.4); Lymphocytes % (auto) 15.2 %; Mean Corpuscular Hemoglobin 32.2 pg (25-34); Mean Corpuscular Hgb Conc 32.4 g/dL (32-36); Mean Corpuscular Volume 99.4 fL (80-100); Mean Platelet Volume 9.6 fL (7.4-10.4); Monocytes # (auto) 0.62 K/uL (0.11-0.59); Neutrophils # (auto) 5.89 K/uL (1.4-6.5); Neutrophils % (auto) 75.7 %; Platelet Count 122 K/uL (130-400); RDW Coefficient of Variation 18.2 % (11.5-14.5); RDW Standard Deviation 66.3 fL (36.4-46.3); Red Blood Count 3.14 M/uL (4.2-5.4); White Blood Count 7.78 K/uL (4.8-10.8)
[2019-08-02 19:31] LABS: INR 1.2 (0.9-1.1); Partial Thromboplastin Ratio 1.1; Partial Thromboplastin Time 28.8 Seconds (21.0-31.0); Prothrombin Time 12.5 Seconds (9.0-12.0)
[2019-08-02] MEDS ORDERED: OXYCODONE HCL IR 5 MG TAB (IMMEDIATE RELEASE) PO STA (19:35)
[2019-08-02 19:40] LABS: Albumin Globulin Ratio 0.5 (0.9-2); Albumin Level 2.9 gm/dl (3.4-5.0); BUN Creatinine Ratio 4.5 (10-20); Bilirubin,Total 0.5 mg/dl (0.2-1); Creatinine Clr Calc Pharmacy 9.8 ml/min; Est GFR (African American) 6.5; Est GFR (Non-African American) 5.6; Globulin 5.3 gm/dl (2.5-4.0); Magnesium 2.1 mg/dl (1.8-2.4); Total Protein 8.2 gm/dl (6.4-8.2); Troponin I 12.9 ng/ml (0-0.045)
[2019-08-02] MEDS ORDERED: ASPIRIN CHEW 324 MG PO STA (19:58)
[2019-08-02] MEDS ORDERED: CEFEPIME 2,000 MG/20 ML VIAL IV STA (19:59)
[2019-08-02] MEDS ORDERED: NITROGLYCERIN 2% OINTMENT 30GM TUBE EXT SCH (20:00)
[2019-08-02] MEDS ORDERED: HEPARIN SOD 5,000 UNIT/0.5 ML VIAL ONE (20:30)
[2019-08-02] MEDS ORDERED: HEPARIN SOD (PORCINE) 1000 UNIT/ML 10 ML VIAL ONE (20:37)
[2019-08-02] MEDS: HEPARIN SODIUM/DEXTROSE 25,000 UNITS/500 ML BAG IV SCH (20:38)
[2019-08-02 21:02] LABS: Appearance Urine Turbid (Clear); Bacteria Urine Automated 4+ (Negative); Bilirubin Urine Negative (Negative); Blood Urine 2+ (Negative); Color Urine Yellow; Epithelial Cell Urine Auto >30 /lpf (0-5); Glucose Urine UA 2+ (Negative); Ketones Urine Negative (Negative); Leukocyte Esterase Urine 3+ (Negative); Nitrite Urine Negative (Negative); Specific Gravity Urine 1.016 (1.000-1.030); Urobilinogen Urine Negative (Negative); WBC Urine Automated >30 /hpf (0-5); pH Urine >= 9.0 (4.5-7.5)
[2019-08-02 21:10] LABS: Protein Urine 3+ (Negative)
[2019-08-02 21:11] LABS: Sulfosalicylic Acid Urine Positive (Negative)
[2019-08-02] MEDS ORDERED: VANCOMYCIN CONSULT ACTIVE PRN ×2 (21:13→23:14)
[2019-08-02] MEDS ORDERED: VANCOMYCIN HCL 2,250 MG in SODIUM CHLORIDE 0.9% 500 ML IV ONE (21:13)
--- NOTE | 2019-08-02 21:27 | History & Physical Report ---
Date of Service August 02, 2019 Assessment & Plan (1) Non-ST elevation PR (NSTEMI): NSTEMI with ST depressions leads I, aVL, V2, V4-6/hypertension/paroxysmal atrial fibrillation/CHF- The patient will be admitted to telemetry for serial cardiac enzymes, serial EKG's, cardiac rhythm monitoring and a 2-D echocardiogram with Dopplers. Continue amiodarone 200 mg p.o. twice daily, clopidogrel 75 mg p.o. daily, furosemide 40 mg p.o. twice daily and metoprolol tartrate 100 mg p.o. twice daily. Continue heparin infusion per protocol begun in the ED. Nitropaste 1 inch to anterior chest wall every [address] Shahram Hernandez from interventional cardiology has been called by the ED and is aware the patient. Present on Admission?: Yes (2) Pneumonia: Left lower lobe pneumonia. Patient was given cefepime IV and levofloxacin IV by the ED. Admit on vancomycin IV, Zosyn IV and levofloxacin IV. Present on Admission?: Yes (3) Cystitis: Follow urine culture and sensitivity. Will be covered by the above antibiotics. Present on Admission?: Yes (4) Congestive heart failure with LV diastolic dysfunction, NYHA class 3: See above Present on Admission?: Yes (5) Hypertension: See above Present on Admission?: Yes (6) Paroxysmal atrial fibrillation: See above Present on Admission?: Yes (7) Diabetes mellitus type 2 with complications: On unknown dose of Lantus, and will be held. Placed on Accu-Cheks before meals and at bedtime with NovoLog coverage per scale. Check hemoglobin A1c Present on Admission?: Yes (8) ESRD on dialysis: On hemodialysis 3 times per week. Consult nephrology. Present on Admission?: Yes (9) Hyperlipidemia: Continue atorvastatin 40 mg daily Present on Admission?: Yes (10) Hypothyroidism: Continue levothyroxine 50 mcg daily Present on Admission?: Yes History of Present Illness Chief Complaint: The patient presents to the emergency department with worsening shortness of breath, fever to 101 and chills that began yesterday. Primary Care Provider: Phill Ramirez III, RADHA The patient is a 69-year-old female with a past medical history including NSTEMI, acute pyelonephritis, ESRD on HD, morbid obesity, hyperglycemia, pulmonary edema, acute respiratory distress, septic shock, acute respiratory failure, metabolic encephalopathy, hyponatremia, diabetic foot ulcer, diabetic nephropathy, neuropathy and retinopathy, paroxysmal atrial fibrillation, paroxysmal supraventricular tachycardia and colon cancer. She presents to the emergency department with persistent and worsening shortness of breath, fatigue, chest discomfort, temperature, cough and foul-smelling urine Allergies Allergy/AdvReac Type Severity Reaction Status Date / Time No Known Allergies Allergy Verified 07/07/19 10:22 Home Medications Home Medications Medication Instructions Recorded Confirmed Type latanoprost 1 drp OPB HS 05/14/18 08/02/19 History levothyroxine 50 mcg PO QAM 05/14/18 08/02/19 History omega-3 acid ethyl esters 1 g PO DAILY 05/14/18 08/02/19 History aspirin [Aspir-81] 81 mg PO HS 07/23/18 08/02/19 History cholecalciferol (vitamin D3) 50,000 units PO WK 07/23/18 08/02/19 History metoprolol tartrate 100 mg tablet 100 mg PO BID #180 tab 12/30/18 08/02/19 Rx insulin glargine 100 unit/mL (3 See Rx Instructions SUBCUT 05/15/19 08/02/19 Rx mL) subcutaneous pen .COMPLEX #30 ml amiodarone 200 mg PO BID 05/23/19 08/02/19 History atorvastatin 40 mg PO QAM #30 tab 05/27/19 08/02/19 Rx Auryxia 2 tab PO TIDM 06/21/19 08/02/19 History furosemide 40 mg PO BID 06/21/19 08/02/19 History oxycodone-acetaminophen 5 mg-325 1 tab PO DAILY PRN #30 tab 07/11/19 08/02/19 Rx mg tablet insulin aspart U-100 100 unit/mL See Rx Instructions .ROUTE 07/26/19 08/02/19 Rx (3 mL) subcutaneous pen .COMPLEX #15 ml clopidogrel 75 mg tablet 75 mg PO DAILY #90 tab 08/01/19 08/02/19 Rx pregabalin 25 mg capsule 25 mg PO BID #60 cap 08/01/19 08/02/19 Rx Past Med/Surg History Medical History Anemia (Chronic 05/24/13) AVNRT (AV alondra re-entry tachycardia) Chronic diastolic CHF (congestive heart failure) Colon cancer screening Diabetes mellitus (Resolved) Diabetes mellitus type 2 with complications (Chronic) Diabetic nephropathy (Chronic) Diabetic peripheral neuropathy associated with type 2 diabetes mellitus (Resolved) Dialysis patient (Chronic) End-stage renal disease (ESRD) ESRD on dialysis (Chronic) dialysis--tue/thur/sat GI (gastrointestinal bleed) (Resolved 05/24/13) Gout History of colon cancer (Chronic) 2009--sx, chemo History of diabetic ulcer of foot (Chronic) Hyperlipidemia (Chronic) Hypertension (Chronic) Hypothyroidism (Chronic) Hypoxia (Resolved) Left posterior fascicular block (LPFB) (Chronic) Morbid obesity with BMI of 40.0-44.9, adult (Inactive) Obesity Palpitations (Resolved) Paroxysmal atrial fibrillation (Chronic) on plavix follows with Kip Fletcher Paroxysmal supraventricular tachycardia (Chronic) PVD (peripheral vascular disease) (Chronic) RBBB (right bundle branch block) (Chronic) SIRS (systemic inflammatory response syndrome) (Resolved) Sleep apnea (Chronic) does not use CPAP Surgical History Arteriovenous fistula left arm 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) History of bilateral cataract extraction History of bladder surgery per pt half of bladder removed during colectomy History of colectomy 4 ft removed History of colonoscopy History of colostomy History of colostomy reversal History of tonsillectomy and adenoidectomy History of total hysterectomy with bilateral salpingo-oophorectomy (BSO) History of wisdom tooth extraction Hx of right BKA (Resolved) Family History Mother Breast cancer Grandfather Myocardial infarction Father Family history of diabetes mellitus Other No family history of adverse response to anesthesia Social History Preferred Language: Egyptian Communication Ability: Effective Visual Impairment: No Limitations Nursing Student Required: No Beliefs That Will Affect Care: None marital status: Current Living Situation: Spouse current occupational status: retired Other Information That Helps Us Care for You: No Feels Safe at Home: Yes Safety Concerns: Feels Safe At This Time Smoking Status: Never smoker Do You Dip or Chew Tobacco: No ; Second Hand Exposure: No ; Tobacco Cessation Education Requested by Patient: No Hx Alcohol Use: No Hx Substance Use: No Review of Systems Review of Systems: The patient denies palpitations, lower extremity swelling, sore throat, sweats, nausea, vomiting, diarrhea , constipation, abdominal pain, pelvic pain, blood in urine or stool, dysuria, urinary frequency or urgency, lightheadedness, dizziness, headache, memory loss, loss of consciousness, rash, abnormal bruising or bleeding, imbalance, focal weakness, numbness or tingling in arms or legs, generalized arthralgias or myalgias, back or neck pain, or night sweats. The review of systems is otherwise negative other than for that already noted above, and at least 10 systems have been reviewed. Physical Exam Physical Exam: The patient is awake, alert and oriented 3, looks fatigued, normocephalic and atraumatic, lying in bed and in no acute distress. HEENT--PERRL, EOMI, mucous membranes and oropharynx dry. Neck--supple. No JVD. No bruits. Thyroid normal, trachea midline, no adenopathy. Heart--normal S1 and S2. No murmurs, rubs or gallops. Lungs--decreased breath sounds at the bases, left worse than right. No respiratory distress, no accessory muscle use. Abdomen--normal bowel sounds and soft. Nontender. Nondistended. Extremities--no cyanosis or clubbing. No edema. Dermatologic--normal skin turgor, normal color, no abnormal lymph nodes, no rash. Neurologic--cranial nerves II through XII grossly intact. Rheumatologic--normal range of motion. Psychiatric--normal affect. Results & Data Vital Signs (Past 12 Hours) Vital Signs Temp Pulse Pulse Resp BP BP Pulse Ox 08/02/19 21:00 96/52 L 94 08/02/19 20:31 92 H 121/71 96 08/02/19 20:30 96 08/02/19 20:04 93 H 25 H 123/71 95 08/02/19 20:03 93 H 19 123/71 96 08/02/19 20:02 96 08/02/19 19:30 95 H 11 L 92 08/02/19 19:00 97 H 13 96 08/02/19 18:55 93 08/02/19 18:45 98 H 18 90 08/02/19 18:32 100.9 F H 99 H 20 159/83 H 92 Laboratory Results Laboratory Results WBC 7.78 K/uL (4.8-10.8) 08/02/19 18:53 RBC 3.14 M/uL (4.2-5.4) L 08/02/19 18:53 Hgb 10.1 g/dL (12.0-16.0) L 08/02/19 18:53 Hct 31.2 % (37-47) L 08/02/19 18:53 MCV 99.4 fL (80-100) 08/02/19 18:53 MCH 32.2 pg (25-34) 08/02/19 18:53 MCHC 32.4 g/dL (32-36) 08/02/19 18:53 RDW Std Deviation 66.3 fL (36.4-46.3) H 08/02/19 18:53 RDW Coeff of Veronica 18.2 % (11.5-14.5) H 08/02/19 18:53 Plt Count 122 K/uL (130-400) L 08/02/19 18:53 MPV 9.6 fL (7.4-10.4) 08/02/19 18:53 Immature Gran % (Auto) 0.1 % 08/02/19 18:53 Neut % (Auto) 75.7 % 08/02/19 18:53 Lymph % (Auto) 15.2 % 08/02/19 18:53 [place] % (Auto) 8.0 % 08/02/19 18:53 Eos % (Auto) 0.9 % 08/02/19 18:53 Baso % (Auto) 0.1 % 08/02/19 18:53 Immature Gran # (Auto) 0.01 K/uL (0.00-0.02) 08/02/19 18:53 Neut # (Auto) 5.89 K/uL (1.4-6.5) 08/02/19 18:53 Lymph # (Auto) 1.18 K/uL (1.2-3.4) L 08/02/19 18:53 [place] # (Auto) 0.62 K/uL (0.11-0.59) H 08/02/19 18:53 Eos # (Auto) 0.07 K/uL (0-0.5) 08/02/19 18:53 Baso # (Auto) 0.01 K/uL (0-0.2) 08/02/19 18:53 PT 12.5 Seconds (9.0-12.0) H 08/02/19 18:53 INR 1.2 (0.9-1.1) H 08/02/19 18:53 APTT 28.8 Seconds (21.0-31.0) 08/02/19 18:53 PTT Ratio 1.1 08/02/19 18:53 Sodium 130 mmol/L (136-145) L 08/02/19 18:53 Potassium 5.0 mmol/L (3.5-5.1) 08/02/19 18:53 Chloride 91 mmol/L (98-107) L 08/02/19 18:53 Carbon Dioxide 30 mmol/L (21-32) 08/02/19 18:53 Anion Gap 9.0 (3-11) 08/02/19 18:53 BUN 31 mg/dl (7-18) H 08/02/19 18:53 Creatinine 6.77 mg/dl (0.6-1.2) H* 08/02/19 18:53 Est Cr Clr Drug Dosing 9.8 ml/min 08/02/19 18:53 Est GFR ( Amer) 6.5 08/02/19 18:53 Est GFR (Non-Af Amer) 5.6 08/02/19 18:53 BUN/Creatinine Ratio 4.5 (10-20) L 08/02/19 18:53 Glucose 252 mg/dl (70-99) H 08/02/19 18:53 Lactate 1.6 mmol/L (0.4-2.0) 08/02/19 21:03 Calcium 9.0 mg/dl (8.5-10.1) 08/02/19 18:53 Magnesium 2.1 mg/dl (1.8-2.4) 08/02/19 18:53 Total Bilirubin 0.5 mg/dl (0.2-1) 08/02/19 18:53 AST 80 U/L (15-37) H 08/02/19 18:53 ALT 22 U/L (12-78) 08/02/19 18:53 Alkaline Phosphatase 109 U/L (45-117) 08/02/19 18:53 Troponin I 12.900 ng/ml (0-0.045) H* 08/02/19 18:53 Total Protein 8.2 gm/dl (6.4-8.2) 08/02/19 18:53 Albumin 2.9 gm/dl (3.4-5.0) L 08/02/19 18:53 Globulin 5.3 gm/dl (2.5-4.0) H 08/02/19 18:53 Albumin/Globulin Ratio 0.5 (0.9-2) L 08/02/19 18:53 Urine Color Yellow 08/02/19 20:45 Urine Appearance Turbid (Clear) A 08/02/19 20:45 Urine pH >= 9.0 (4.5-7.5) H 08/02/19 20:45 Ur Specific [place] 1.016 (1.000-1.030) 08/02/19 20:45 Urine Protein 3+ (Negative) H 08/02/19 20:45 Urine Glucose (UA) 2+ (Negative) H 08/02/19 20:45 Urine Ketones Negative (Negative) 08/02/19 20:45 Urine Blood 2+ (Negative) H 08/02/19 20:45 Urine Nitrite Negative (Negative) 08/02/19 20:45 Urine Bilirubin Negative (Negative) 08/02/19 20:45 Urine Urobilinogen Negative (Negative) 08/02/19 20:45 Ur Leukocyte Esterase 3+ (Negative) H 08/02/19 20:45 Urine WBC (Auto) >30 /hpf (0-5) H 08/02/19 20:45 Urine RBC (Auto) 5-10 /hpf (0-4) H 08/02/19 20:45 U Hyaline Cast (Auto) 5-10 /lpf (0-5) H 08/02/19 20:45 U Epithel Cells (Auto) >30 /lpf (0-5) H 08/02/19 20:45 Urine Bacteria (Auto) 4+ (Negative) H 08/02/19 20:45 Urine Yeast Not Reportable 08/02/19 20:45 Diagnostic Findings [facility], [place] [phone] XRay Report Patient: MILES ZEE Date: 08/02/19 MR#: [id number]: [id number] Acct ID:[id number]: Date: 1950City Zip: [place] [address] Age: 69Location: ED Sex: F Room/Bed: Att Phy:Diagnosis: SOB, UTI Maddi Phy: Phill Ramirez, III, CRNPService Date: 08/02/19 Fam Phy:Interpreting Phy: Devan Galeano MD Admit Phy: Ordering Phy: Yasir Catalan, cc: ~ XR chest 1V portable CLINICAL HISTORY: SEPSIS COMPARISON STUDY: Chest radiograph June 21, 2019. FINDINGS: No pneumothorax is noted. There is a possible trace left pleural effusion. Mild left basilar opacity is noted. Right lung is clear. There is no evidence for pulmonary edema. Cardiomegaly is unchanged. IMPRESSION: Mild left basilar opacity which may reflect consolidation or atelectasis. Possible trace left pleural effusion. Radiographic follow up is recommended. ACT 112: Negative or not required by law. Electronically signed by: Devan Galeano M.D. 08/02/2019 7:07 PM Dictated: 08/02/191904 Transcribed: 08/02/191904 Code Status & VTE Plan Code Status Full code VTE Prophylaxis Plan VTE Prophylaxis will be ordered: Yes PG Care Time/CCT Total # of Minutes Spent Total Time Spent with Patient: Total time spent is greater than 50% in coordination of care (as documented) at patient's floor/unit and/or counseling patient: Coding Level of Care Code 69300 Initial Inpt Care Lvl 3 Diagnoses Non-ST elevation PR (NSTEMI) I21.4 Pneumonia J18.9 Laterality: unspecified laterality Lung location: unspecified part of lung Pneumonia type: due to unspecified organism Cystitis N30.90 Congestive heart failure with LV diastolic dysfunction, NYHA class 3 I50.30 Hypertension I10 Hypertension type: essential hypertension Paroxysmal atrial fibrillation I48.0 Diabetes mellitus type 2 with complications E11.8 ESRD on dialysis N18.6; Z99.2 Hyperlipidemia E78.2 Hyperlipidemia type: mixed hyperlipidemia Hypothyroidism E03.9 Hypothyroidism type: acquired (1) Pneumonia Laterality: unspecified laterality Lung location: unspecified part of lung Pneumonia type: due to unspecified organism Qualified Code(s): J18.9 - Pneumonia, unspecified organism (2) Hypothyroidism Hypothyroidism type: acquired Qualified Code(s): E03.9 - Hypothyroidism, unspecified (3) Hyperlipidemia Hyperlipidemia type: mixed hyperlipidemia Qualified Code(s): E78.2 - Mixed hyperlipidemia (4) Hypertension Hypertension type: essential hypertension Qualified Code(s): I10 - Essential (primary) hypertension
--- NOTE | 2019-08-02 22:41 | Emergency Department Note ---
Entered by Lennie Lopez acting as a scribe for Yasir Catalan DO History of Present Illness General Chief complaint: Shortness of Breath/Dyspnea Stated complaint: SOB, UTI Source: patient and family () History of Present Illness Onset (ago): day(s) (yesterday) Location: chest Pain Consistency: + intermittent Quality: + other (shortness of breath) Associated symptoms: + denies other symptoms (sore throat, runny nose, pain or burning with urination, abdominal pain), + confusion, + fever/chills, + weakness and + other (fatigue); no chest pain and no cough The patient is a 69 year old female who presents to the Emergency Room with complaints of intermittent shortness of breath beginning yesterday. The patient reports a fever of 101 and chills yesterday and today. She notes fatigue and weakness. The patient denies chest pain, sore throat, abdominal pain, pain or burning with urination, cough, and runny nose. The patient's reports the patient was confused yesterday. He notes the patient went to dialysis yesterday and had to be put on oxygen. The patient reports being on dialysis for the past 3 years. She notes a history of colon cancer. She states she is had chemo 10 years ago and is in remission. The patient reports peeing approximately 6 times per day. Home Medications Home Medications Medication Instructions Recorded Confirmed Type latanoprost 1 drp OPB HS 05/14/18 08/02/19 History levothyroxine 50 mcg PO QAM 05/14/18 08/02/19 History omega-3 acid ethyl esters 1 g PO DAILY 05/14/18 08/02/19 History aspirin [Aspir-81] 81 mg PO HS 07/23/18 08/02/19 History cholecalciferol (vitamin D3) 50,000 units PO WK 07/23/18 08/02/19 History metoprolol tartrate 100 mg tablet 100 mg PO BID #180 tab 12/30/18 08/02/19 Rx insulin glargine 100 unit/mL (3 See Rx Instructions SUBCUT 05/15/19 08/02/19 Rx mL) subcutaneous pen .COMPLEX #30 ml amiodarone 200 mg PO BID 05/23/19 08/02/19 History atorvastatin 40 mg PO QAM #30 tab 05/27/19 08/02/19 Rx Auryxia 2 tab PO TIDM 06/21/19 08/02/19 History furosemide 40 mg PO BID 06/21/19 08/02/19 History oxycodone-acetaminophen 5 mg-325 1 tab PO DAILY PRN #30 tab 07/11/19 08/02/19 Rx mg tablet insulin aspart U-100 100 unit/mL See Rx Instructions .ROUTE 07/26/19 08/02/19 Rx (3 mL) subcutaneous pen .COMPLEX #15 ml clopidogrel 75 mg tablet 75 mg PO DAILY #90 tab 08/01/19 08/02/19 Rx pregabalin 25 mg capsule 25 mg PO BID #60 cap 08/01/19 08/02/19 Rx Allergies Allergy/AdvReac Type Severity Reaction Status Date / Time No Known Allergies Allergy Verified 07/07/19 10:22 Past Med/Surg History Medical History Anemia (Chronic 05/24/13) AVNRT (AV alondra re-entry tachycardia) Chronic diastolic CHF (congestive heart failure) Colon cancer screening Diabetes mellitus (Resolved) Diabetes mellitus type 2 with complications (Chronic) Diabetic nephropathy (Chronic) Diabetic peripheral neuropathy associated with type 2 diabetes mellitus (Resolved) Dialysis patient (Chronic) End-stage renal disease (ESRD) ESRD on dialysis (Chronic) dialysis--tue/thur/sat GI (gastrointestinal bleed) (Resolved 05/24/13) Gout History of colon cancer (Chronic) 2008--sx, chemo History of diabetic ulcer of foot (Chronic) Hyperlipidemia (Chronic) Hypertension (Chronic) Hypothyroidism (Chronic) Hypoxia (Resolved) Left posterior fascicular block (LPFB) (Chronic) Morbid obesity with BMI of 40.0-44.9, adult (Inactive) Obesity Palpitations (Resolved) Paroxysmal atrial fibrillation (Chronic) on plavix follows with Kip Fletcher Paroxysmal supraventricular tachycardia (Chronic) PVD (peripheral vascular disease) (Chronic) RBBB (right bundle branch block) (Chronic) SIRS (systemic inflammatory response syndrome) (Resolved) Sleep apnea (Chronic) does not use CPAP Surgical History Arteriovenous fistula left arm 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) History of bilateral cataract extraction History of bladder surgery per pt half of bladder removed during colectomy History of colectomy 4 ft removed History of colonoscopy History of colostomy History of colostomy reversal History of tonsillectomy and adenoidectomy History of total hysterectomy with bilateral salpingo-oophorectomy (BSO) History of wisdom tooth extraction Hx of right BKA (Resolved) Family History Mother Breast cancer Grandfather Myocardial infarction Father Family history of diabetes mellitus Other No family history of adverse response to anesthesia Social History Preferred Language: Irish Communication Ability: Effective Visual Impairment: No Limitations Data Reporting Analyst Required: No Beliefs That Will Affect Care: None marital status: Current Living Situation: Spouse current occupational status: retired Feels Safe at Home: Yes Smoking Status: Never smoker Second Hand Exposure: No ; Hx Alcohol Use: No Hx Substance Use: No Review of Systems See HPI for pertinent positives & negatives. and A total of 10 systems reviewed and were otherwise negative Physical Exam Vital Signs Vital Signs - 24 hr 08/02/19 18:32 08/02/19 18:45 08/02/19 18:55 Temperature 38.3 C H Temperature Source Oral Pulse Rate 99 H 98 H Pulse Rate [Finger] Pulse Rate from SpO2 Sensor 98 H Respiratory Rate 20 18 Blood Pressure 159/83 H Blood Pressure [Right Arm] Blood Pressure Mean 108 Blood Pressure Mean [Right Arm] Pulse Oximetry 92 90 93 Oxygen Delivery Method Room Air Room Air Oxygen Flow Rate Sepsis Recent Fever Within 48 Hours Yes Sepsis New/Unexplained Change in Mental Status No Sepsis Action Taken by Nursing No Action Required Oxygen Flow Rate - Titration Pulse Oximetry Post Tiitration 08/02/19 19:00 08/02/19 19:30 08/02/19 20:02 Temperature Temperature Source Pulse Rate 97 H 95 H Pulse Rate [Finger] Pulse Rate from SpO2 Sensor 98 H 95 H 93 H Respiratory Rate 13 11 L Blood Pressure Blood Pressure [Right Arm] Blood Pressure Mean Blood Pressure Mean [Right Arm] Pulse Oximetry 96 92 96 Oxygen Delivery Method Nasal Cannula Oxygen Flow Rate 2 Sepsis Recent Fever Within 48 Hours Sepsis New/Unexplained Change in Mental Status Sepsis Action Taken by Nursing Oxygen Flow Rate - Titration 2 Pulse Oximetry Post Tiitration 95 08/02/19 20:03 08/02/19 20:04 08/02/19 20:30 Temperature Temperature Source Pulse Rate 93 H Pulse Rate [Finger] 93 H Pulse Rate from SpO2 Sensor 93 H 91 H Respiratory Rate 19 25 H Blood Pressure 123/71 Blood Pressure [Right Arm] 123/71 Blood Pressure Mean 92 Blood Pressure Mean [Right Arm] 88 Pulse Oximetry 96 95 96 Oxygen Delivery Method Nasal Cannula Oxygen Flow Rate 2 Sepsis Recent Fever Within 48 Hours Sepsis New/Unexplained Change in Mental Status Sepsis Action Taken by Nursing Oxygen Flow Rate - Titration Pulse Oximetry Post Tiitration 08/02/19 20:31 08/02/19 21:00 Temperature Temperature Source Pulse Rate 92 H Pulse Rate [Finger] Pulse Rate from SpO2 Sensor 93 H 90 Respiratory Rate Blood Pressure 121/71 96/52 L Blood Pressure [Right Arm] Blood Pressure Mean 88 73 Blood Pressure Mean [Right Arm] Pulse Oximetry 96 94 Oxygen Delivery Method Oxygen Flow Rate Sepsis Recent Fever Within 48 Hours Sepsis New/Unexplained Change in Mental Status Sepsis Action Taken by Nursing Oxygen Flow Rate - Titration Pulse Oximetry Post Tiitration GENERAL: sitting up in bed, chronically-ill appearing, obese, dyspneic with conversation, non-toxic EYE EXAM: normal conjunctiva OROPHARYNX: no exudate, no erythema, lips, buccal mucosa, and tongue normal and mucous membranes are moist NECK: supple, no nuchal rigidity, no adenopathy, non-tender LUNGS: Diminished breath sounds bilaterally. Normal chest wall mechanics HEART: no murmurs, S1 normal and S2 normal ABDOMEN: abdomen soft, non-tender, normo-active bowel sounds, no masses, no rebound or guarding. BACK: Back is symmetrical on inspection and there is no deformity, no midline tenderness, no CVA tenderness. SKIN: no rashes and no bruising UPPER EXTREMITIES: upper extremities are grossly normal. Left: fistula present with positive thrill/bruit LOWER EXTREMITIES: No pitting edema. Right BKA. NEURO EXAM: Normal sensorium, cranial nerves II-XII grossly intact, normal speech, no gross weakness of arms, no gross weakness of legs. Course Course ED COURSE: Vital signs were reviewed and showed hypoxia, hypertension, febrile, and tachycardia. The patients medical record was reviewed The above diagnostic studies were performed and reviewed. ED treatments and interventions as stated above. 1835: The patient was evaluated in room C04. A complete history and physical examination was performed. 1935: I told the nurse to only give the patient 500mg of percocet. 1999: I spoke with Dr. Hernandez - Cardiology who wants the patient to be heparinized. 2015: Upon reevaluation, the patient is resting more comfortably. I discussed my findings with the patient and her and they understand and agree with the treatment plan. Based on the patients age, coexisting illnesses, exam and lab findings the decision to treat as an inpatient was made. I reviewed the patient's case with Dr. Ren - [facility] Hospitalist who will evaluate the patient for further management. The patient remained stable while under my care. The patient will be evaluated for further management. Administered Medications Levofloxacin/Dextrose (Levaquin/D5w) 750 mg in 150 mls @ 100 mls/hr IV Q24H [facility] Stop: 09/13/19 18:59 Last Infusion: 08/02/19 20:32 Dose: 0 mls/hr Documented by: [id number] Admin: 08/02/19 18:59 Dose: 100 mls/hr Documented by: [id number] Heparin Sodium/Dextrose (Heparin Sodium/Dextrose) 25,000 units in 500 mls @ 29 mls/hr IV .[id number] ALEX; Protocol Stop: 09/01/19 19:59 Last Admin: 08/02/19 20:38 Dose: 1,450 units/hr, 29 mls/hr Documented by: [id number] Cosigned by: [id number] Vancomycin HCl 2,250 mg/ (Sodium Chloride) 545 mls @ 200 mls/hr IV NOW ONE Stop: 08/02/19 23:56 Last Admin: 08/02/19 22:22 Dose: 200 mls/hr Documented by: [id number] Nitroglycerin (Nitro-Bid 2%) 2 inch EXT Q6H ALEX Stop: 09/01/19 19:59 Last Admin: 08/02/19 20:13 Dose: 2 inch Documented by: [id number] Discontinued Medications Acetaminophen (Tylenol) 1,000 mg PO NOW STA Stop: 08/02/19 18:49 Last Admin: 08/02/19 18:59 Dose: 1,000 mg Documented by: [id number] Aspirin (Aspirin) 324 mg PO NOW STA Stop: 08/02/19 19:59 Last Admin: 08/02/19 20:13 Dose: 324 mg Documented by: [id number] Heparin Sodium (Porcine) (Heparin Sodium (Porcine)) Confirm Administered Dose 5,000 units .ROUTE .STK-MED ONE Stop: 08/02/19 20:31 Last Admin: 08/02/19 20:36 Dose: Not Given Documented by: [id number] Heparin Sodium (Porcine) (Heparin Iv Bolus) Confirm Administered Dose 10,000 units .ROUTE .STK-MED ONE Stop: 08/02/19 20:38 Last Admin: 08/02/19 20:39 Dose: 5,000 units Documented by: [id number] Cosigned by: [id number] Sodium Chloride (Nss 1000ml) 1,000 mls @ 999 mls/hr IV .Q1H1M ONE Stop: 08/02/19 19:48 Last Infusion: 08/02/19 20:05 Dose: 0 mls/hr Documented by: [id number] Admin: 08/02/19 18:59 Dose: 999 mls/hr Documented by: [id number] Cefepime HCl (Maxipime) 2,000 mg in 20 mls @ 5 mls/min IV NOW STA; Protocol Stop: 08/02/19 20:02 Last Admin: 08/02/19 20:24 Dose: 5 mls/min Documented by: [id number] Oxycodone HCl (Roxicodone Immediate Rel) 5 mg PO NOW STA Stop: 08/02/19 19:36 Last Admin: 08/02/19 19:40 Dose: 5 mg Documented by: [id number] Critical Care Time Critical Care Time: Yes Total Critical Care Time: 75 I have personally spent 75 minutes of critical care time in the direct management of this patient. This includes bedside care, interpretation of diagnostic studies, and testing, discussion with consultants, patient, and family members, and other required patient management activities. This 75 minutes is in excess of all separately billable procedures. Medical Decision Making Differential Diagnosis Differential diagnosis includes etiologies such as sepsis, UTI, pneumonia, metabolic, electrolyte abnormalities, cardiac sources, intracerebral event, toxicologic, neurologic, as well as others were entertained. Medical Records Attestation: I reviewed the patient's medical records. Home Medications Current Medication List: was personally reviewed by me Laboratory Data Attestation: I reviewed the patient's lab results. Result diagrams: 08/02/19 18:53 08/02/19 18:53 Lab Results 08/02/19 08/02/1920 Range/Units 18:53 18:53 18:53 WBC 7.78 (4.8-10.8) K/uL RBC 3.14 L (4.2-5.4) M/uL Hgb 10.1 L (12.0-16.0) g/dL Hct 31.2 L (37-47) % MCV 99.4 (80-100) fL MCH 32.2 (25-34) pg MCHC 32.4 (32-36) g/dL RDW Std Deviation 66.3 H (36.4-46.3) fL RDW Coeff of Veronica 18.2 H (11.5-14.5) % Plt Count 122 L (130-400) K/uL MPV 9.6 (7.4-10.4) fL Immature Gran % (Auto) 0.1 % Neut % (Auto) 75.7 % Lymph % (Auto) 15.2 % [place] % (Auto) 8.0 % Eos % (Auto) 0.9 % Baso % (Auto) 0.1 % Immature Gran # (Auto) 0.01 (0.00-0.02) K/uL Neut # (Auto) 5.89 (1.4-6.5) K/uL Lymph # (Auto) 1.18 L (1.2-3.4) K/uL [place] # (Auto) 0.62 H (0.11-0.59) K/uL Eos # (Auto) 0.07 (0-0.5) K/uL Baso # (Auto) 0.01 (0-0.2) K/uL PT 12.5 H (9.0-12.0) Seconds INR 1.2 H (0.9-1.1) APTT 28.8 (21.0-31.0) Seconds PTT Ratio 1.1 Sodium 130 L (136-145) mmol/L Potassium 5.0 (3.5-5.1) mmol/L Chloride 91 L (98-107) mmol/L Carbon Dioxide 30 (21-32) mmol/L Anion Gap 9.0 (3-11) BUN 31 H (7-18) mg/dl Creatinine 6.77 H* (0.6-1.2) mg/dl Est Cr Clr Drug Dosing 9.8 ml/min Est GFR ( Amer) 6.5 Est GFR (Non-Af Amer) 5.6 BUN/Creatinine Ratio 4.5 L (10-20) Glucose 252 H (70-99) mg/dl Lactate (0.4-2.0) mmol/L Calcium 9.0 (8.5-10.1) mg/dl Magnesium 2.1 (1.8-2.4) mg/dl Total Bilirubin 0.5 (0.2-1) mg/dl AST 80 H (15-37) U/L ALT 22 (12-78) U/L Alkaline Phosphatase 109 (45-117) U/L Troponin I 12.900 H* (0-0.045) ng/ml Total Protein 8.2 (6.4-8.2) gm/dl Albumin 2.9 L (3.4-5.0) gm/dl Globulin 5.3 H (2.5-4.0) gm/dl Albumin/Globulin Ratio 0.5 L (0.9-2) Urine Color Urine Appearance (Clear) Urine pH (4.5-7.5) Ur Specific [place] (1.000-1.030) Urine Protein (Negative) Urine Glucose (UA) (Negative) Urine Ketones (Negative) Urine Blood (Negative) Urine Nitrite (Negative) Urine Bilirubin (Negative) Urine Urobilinogen (Negative) Ur Leukocyte Esterase (Negative) Urine WBC (Auto) (0-5) /hpf Urine RBC (Auto) (0-4) /hpf U Hyaline Cast (Auto) (0-5) /lpf U Epithel Cells (Auto) (0-5) /lpf Urine Bacteria (Auto) (Negative) Urine Yeast 08/02/19 08/02/19 08/02/19 Range/Units 18:53 20:45 21:03 WBC (4.8-10.8) K/uL RBC (4.2-5.4) M/uL Hgb (12.0-16.0) g/dL Hct (37-47) % MCV (80-100) fL MCH (25-34) pg MCHC (32-36) g/dL RDW Std Deviation (36.4-46.3) fL RDW Coeff of Veronica (11.5-14.5) % Plt Count (130-400) K/uL MPV (7.4-10.4) fL Immature Gran % (Auto) % Neut % (Auto) % Lymph % (Auto) % [place] % (Auto) % Eos % (Auto) % Baso % (Auto) % Immature Gran # (Auto) (0.00-0.02) K/uL Neut # (Auto) (1.4-6.5) K/uL Lymph # (Auto) (1.2-3.4) K/uL [place] # (Auto) (0.11-0.59) K/uL Eos # (Auto) (0-0.5) K/uL Baso # (Auto) (0-0.2) K/uL PT (9.0-12.0) Seconds INR (0.9-1.1) APTT (21.0-31.0) Seconds PTT Ratio Sodium (136-145) mmol/L Potassium (3.5-5.1) mmol/L Chloride (98-107) mmol/L Carbon Dioxide (21-32) mmol/L Anion Gap (3-11) BUN (7-18) mg/dl Creatinine (0.6-1.2) mg/dl Est Cr Clr Drug Dosing ml/min Est GFR ( Amer) Est GFR (Non-Af Amer) BUN/Creatinine Ratio (10-20) Glucose (70-99) mg/dl Lactate 2.2 H* 1.6 (0.4-2.0) mmol/L Calcium (8.5-10.1) mg/dl Magnesium (1.8-2.4) mg/dl Total Bilirubin (0.2-1) mg/dl AST (15-37) U/L ALT (12-78) U/L Alkaline Phosphatase (45-117) U/L Troponin I (0-0.045) ng/ml Total Protein (6.4-8.2) gm/dl Albumin (3.4-5.0) gm/dl Globulin (2.5-4.0) gm/dl Albumin/Globulin Ratio (0.9-2) Urine Color Yellow Urine Appearance Turbid A (Clear) Urine pH >= 9.0 H (4.5-7.5) Ur Specific [place] 1.016 (1.000-1.030) Urine Protein 3+ H (Negative) Urine Glucose (UA) 2+ H (Negative) Urine Ketones Negative (Negative) Urine Blood 2+ H (Negative) Urine Nitrite Negative (Negative) Urine Bilirubin Negative (Negative) Urine Urobilinogen Negative (Negative) Ur Leukocyte Esterase 3+ H (Negative) Urine WBC (Auto) >30 H (0-5) /hpf Urine RBC (Auto) 5-10 H (0-4) /hpf U Hyaline Cast (Auto) 5-10 H (0-5) /lpf U Epithel Cells (Auto) >30 H (0-5) /lpf Urine Bacteria (Auto) 4+ H (Negative) Urine Yeast Not Reportable Imaging Data Radiologist's Impression: Radiology results as stated below per my review and the radiologist's interpretation: XR chest 1V portable CLINICAL HISTORY: SEPSIS COMPARISON STUDY: Chest radiograph June 21, 2019. FINDINGS: No pneumothorax is noted. There is a possible trace left pleural effusion. Mild left basilar opacity is noted. Right lung is clear. There is no evidence for pulmonary edema. Cardiomegaly is unchanged. IMPRESSION: Mild left basilar opacity which may reflect consolidation or atelectasis. Possible trace left pleural effusion. Radiographic follow up is recommended. ACT 112: Negative or not required by law. Electronically signed by: Devan Galeano M.D. 08/02/2019 7:07 PM ECG Data Attestation: I personally reviewed and interpreted this ECG as follows: Indication: + SOB/dyspnea Rate (beats per minute): 98 Rhythm: + sinus rhythm ECG [place]: + Right axis deviation ECG ST segments: + ST depression (V2, lateral, and high lateral) and + ST elevation (aVR and Lead 3) Comparison ECG Date: from (06/21/2019) Change: the following changes noted (ST segment elevation aVR is worse; elevat ion in lead 3 is new; ST depression in v2 is worse; ST depression in lateral lead is old, ST depression in high lateral lead is new) Blood Pressure Blood Pressure Findings: Elevated blood pressure Blood Pressure Disposition: further management by hospitalist DAPHNEY Norman Patient is a 69-year-old female with a past medical history of CHF diabetes end- stage renal disease on dialysis Wednesday and vasculopath that presents the ER for shortness of breath which is been present for the past 24 hours and has not had a fever today. IV was established blood work was obtained . Patient was hypoxic at 88% on room air. Patient was febrile and slightly tachycardic and hypertensive. Labs were obtained and showed no significant leukocytosis but a mild anemia at 10. INR was unremarkable. BMP with hyponatremia. Creatinine was elevated at 6.77 and appropriate as patient is on dialysis. BSG was elevated as well to 52. Trope was significantly elevated at 13. UA was obtained later but did appear to be infected with multiple whites epithelials bacteria. Although on dialysis she does urinate 5 times a day. Chest x-ray with questionable infiltrate. EKG did show significant ischemic changes. Her shortness of breath resolved with nasal cannula. She was asymptomatic at rest. Did discuss with cardiology due to the EKG changes and the elevated troponin. We will treat medically at this time. Placed on Nitropaste. Patient was placed on heparin drip and bolus. She denied any hematemesis, hemoptysis, melena, bright red blood per rectum, recent surgeries, recent trauma or previous head bleeds. Patient was updated bedside. Did discuss with the hospitalist. They want to hold on CT angios of the chest. I felt this was reasonable as we are treating her with heparin at this point anyway if she did have a PE we would be treating it. Holding on the contrast as to not injure her kidneys any further. Patient and were updated at bedside. Admit to the hospitalist. Impression & Plan Non-ST elevation CO (NSTEMI), Hypoxia, Pneumonia, Sepsis Discharge Plan Visit Data Chief Complaint: Shortness of Breath/Dyspnea Stated Complaint: SOB, UTI ED Provider: Yasir Catalan Discharge Problem: Non-ST elevation CO (NSTEMI), Hypoxia, Pneumonia, Sepsis Patient Disposition: Being Evaluated by Hospitalist Discharge Problem: Pneumonia Qualifiers: Pneumonia type: due to unspecified organism Laterality: unspecified laterality Lung location: unspecified part of lung Qualified Code(s): J18.9 - Pneumonia, unspecified organism Sepsis Qualifiers: Sepsis type: sepsis due to unspecified organism Sepsis acute organ dysfunction status: unspecified Qualified Code(s): A41.9 - Sepsis, unspecified organism The scribe's documentation has been prepared under my direction and personally reviewed by me in its entirety. I confirm that the note above accurately re flects all work, treatment, procedures, and medical decision making performed by me.
[2019-08-02] MEDS ORDERED: CEFEPIME 1,000 MG in SYRINGE 0 ML IV SCH (23:14)
[2019-08-02] MEDS ORDERED: DEXTROSE 50% 50 ML SYRINGE IV PRN (23:14)
[2019-08-02] MEDS ORDERED: CARBOHYDRATES FOR HYPOGLYCEMIA PO PRN (23:14)
[2019-08-02] MEDS ORDERED: GLUCOSE 10 TABS/TUBE PO PRN (23:14)
[2019-08-02] MEDS ORDERED: GLUCAGON FOR INJ 1 MG VIAL SQ PRN (23:14)
[2019-08-02] MEDS ORDERED: LEVOFLOXACIN/D5W 250 MG/50 ML BAG IV SCH (23:14)
[2019-08-02] MEDS ORDERED: GLUCOSE 40% GEL 15 GM TUBE PO PRN (23:14)
[2019-08-02] MEDS ORDERED: VANCOMYCIN HCL 1,000 MG in SODIUM CHLORIDE 0.9% 250 ML IV SCH (23:14)
[2019-08-02] MEDS ORDERED: ACETAMINOPHEN 325 MG TAB PO PRN (23:14)
[2019-08-02] MEDS: ONDANSETRON INJ 2 MG/ML 2 ML VIAL IV PRN (23:40)
[2019-08-03] MEDS: FUROSEMIDE 40 MG TAB PO SCH ×3 (00:22→21:12)
[2019-08-03] MEDS: AMIODARONE 200 MG TAB PO SCH ×3 (00:22→21:12)
[2019-08-03] MEDS: METOPROLOL TARTRATE 50 MG TAB PO SCH ×4 (00:23→21:14)
[2019-08-03] MEDS: PREGABALIN 25 MG CAP PO SCH ×3 (00:31→21:21)
[2019-08-03] MEDS ORDERED: LEVOFLOXACIN CONSULT ACTIVE PRN (00:33)
[2019-08-03] MEDS ORDERED: CEFEPIME CONSULT ACTIVE PRN (00:33)
[2019-08-03 02:54] LABS: Partial Thromboplastin Ratio 2.3
[2019-08-03 03:03] LABS: Partial Thromboplastin Time 61.8 Seconds (21.0-31.0)
[2019-08-03] MEDS: LEVOTHYROXINE SODIUM 50 MCG TABLET PO SCH (05:59)
[2019-08-03] MEDS: NITROGLYCERIN 2% OINTMENT 30GM TUBE EXT SCH ×4 (06:01→23:37)
[2019-08-03 08:01] LABS: INR 1.3 (0.9-1.1); Prothrombin Time 13.1 Seconds (9.0-12.0)
[2019-08-03 08:36] LABS: Albumin Level 2.6 gm/dl (3.4-5.0); BUN Creatinine Ratio 4.9 (10-20); Calcium 8.9 mg/dl (8.5-10.1); Creatinine Clr Calc Pharmacy 8.7 ml/min; Est GFR (African American) 5.9; Est GFR (Non-African American) 5.1; Magnesium 2.2 mg/dl (1.8-2.4); Potassium 5.9 mmol/L (3.5-5.1); Troponin I 10.5 ng/ml (0-0.045)
[2019-08-03 08:49] LABS: Estimated Average Glucose 171 mg/dl; Hemoglobin A1C 7.6 % (4.5-5.6)
[2019-08-03] MEDS: ATORVASTATIN 40 MG TAB PO SCH (09:27)
[2019-08-03] MEDS: CLOPIDOGREL BISULFATE 75 MG TAB PO SCH (09:28)
--- NOTE | 2019-08-03 09:30 | Hospitalist Progress Note ---
Date of Service August 03, 2019 Assessment & Plan (1) Non-ST elevation [place] (NSTEMI): Umu Mars is a 69-year-old female with a past medical history of end- stage renal disease on hemodialysis, type 2 diabetes mellitus with neuropathy and past right BKA, CHF class III, obesity, atrial fibrillation, paroxysmal SVT, and colon cancer who was admitted with shortness of breath and fatigue and he was found to have evidence of pneumonia with end STEMI. NSTEMI Patient denies any chest pain leading up to this episode, but has had intermittent left shoulder pain at rest recently EKG on admission showed ST depressions in leads I, aVL, V4 to V6 Acute elevation of troponin to 12.9. She appears to have a baseline detectable troponin of approximately or less than 0.2, in the setting of severe renal disease. Evidence of community-acquired pneumonia being treated as below TTE pending, severely limited by body habitus Asymptomatic at time of visit today. Case discussed with cardiology. Given her age, diabetes, diffuse EKG findings she likely has multivessel disease. Cardiac cath recommended by cardiology and discussed with patient. She would liek to have the cath performed, anticipate catheterization tomorrow. Catheterization today only if patient comes symptomatic Continue aspirin 81 mg, Plavix 75 mg (on dual antiplatelet therapy baseline due to peripheral vascular disease) Continue atorvastatin 40 mg daily Continue metoprolol 100 mg twice daily Heparin GTT Troponin every 8 hours Pneumonia in dialysis pt Febrile to 38.3 on admission, lactate elevated to 2.2 which normalized with 1 L fluid bolus Patient with total intake 2.2 L with additional IV medications, output 30 cc - CXR with LLL infiltrate - Procal, CRP elevated On cefepime and levofloxacin IV in ED, expanded to Vanco/Zosyn/levofloxacin, narrowed to levofloxacin/cefepime MRSA nares negative. - Narrow to cefepime monotherapy Type 2 diabetes mellitus with neuropathy, insulin-dependent Hemoglobin A1c on admission 7.6 Prior to admission on glargine 36 units every morning, 80 units every afternoon. Insulin aspart 15 units breakfast, 15 units lunch, 20 units dinner plus sliding scale - On glargine 20u daily on admit with SSI, BSG in 200s. 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 at midnight if consent to catheterization Disposition: Ongoing Social: Prior to admission lives at home independently with her . (2) Pneumonia: (3) Sepsis: (4) End-stage renal disease (ESRD): (5) Hypoxia: (6) Community acquired pneumonia: (7) Diabetes mellitus type 2 with complications: (8) Congestive heart failure with LV diastolic dysfunction, NYHA class 3: Supervising Physician Co-Signing Physician Notes I personally examined the patient and verified all sierra points of history and exam, discussed case, and agree with decision making with Dr Baugh. Feeling okay. No new complaints. Is willing to undergo heart cath. Asks why she is gotten so many pneumonias recently. Answered all questions the best my ability. Vitals noted, in general she is awake and alert pleasant no distress. HEENT normocephalic atraumatic mucous membranes are moist. Breathing unlabored no accessory muscle use good effort. Skin shows no rashes no pallor or icterus. Labs and EKGs reviewed, chest x-ray personally reviewed as well. Left lower lobe healthcare associated pneumoniaMRSA nares is negative, DC Vanco. Continue cefepime. Seems surprisingly stable. This was likely the physiologic stressor that led to her NSTEMI NSTEMItroponin is peaked and is on its way down, continue med management, secondary risk reduction. For cath tomorrow. DVT prophylaxiscurrently on heparin drip Otherwise as above Subjective Umu is a 69-year-old female who presented to the hospital with shortness of breath and fatigue, and was found to have acute ST changes and an elevated troponin on admission. He is seen at the bedside this morning. Umu reports that she did not have any chest pain leading up to her admission. She endorses intermittent left shoulder pain which is not associated with exercise at rest, mostly in the morning which she thinks is from sleeping on her side. She has a right BKA so she ambulates mostly with a wheelchair being pushed by her , occasionally with a walker/cane. She has no chest pain or shoulder pain at time of visit this morning. She is not short of breath at time of visit this morning and is breathing comfortably. She denies episodes of diaphoresis. Endorses she woke up once with a sweaty pillow, otherwise denies night sweats. Denies fever, chills this morning. Denies abdominal pain. She has a history of end-stage renal disease on dialysis, Wednesday. She makes a small amount of urine (oliguric, non-anuretic). Is very anxious about potential cardiac catheterization which she discussed with Dr. Hernandez this morning. She is awaiting her to arrive so that they can discuss whether she would like to go forward with the procedure. She is not had a catheterization before. Review of Systems Review of Systems: Constitutional: Denies fever, chills. Endorses fatigue Eyes: Denies vision change ENT: Denies ear pain, sore throat, sinus pain Cardiovascular: Denies Chest pain, chest pressure, palpitations, extremity swelling Respiratory: As noted in HPI. Denies cough, sputum production Gastrointestinal: Denies abdominal pain, nausea, vomiting, constipation, diarrhea Genitourinary: Denies pain with urination, urinary urgency, urinary frequency. Endorses oliguria Musculoskeletal: Endorses is global weakness and fatigue, denies focal weakness. Endorses intermittent left shoulder pain as noted in HPI. History of right BKA Integumentary:Denies rash, lesions, bruising Neurological: Denies headache Physical Exam Physical Exam: General: A&Ox3. NAD. Cooperative. HEENT: Atraumatic, normocephalic. Pulm: Diminished in the bases bilaterally, crackles appreciated more prominently in right lower lobe. . Symmetrical chest rise. No increase work of breathing. No respiratory distress. Cardiac: RRR, -mrg. Radial pulses intact and symmetrical. JVD unable to be assessed due to body habitus. Abdominal: Obese, nontender. Extremity: Status post right BKA. Left lower extremity intact, warm, sensation intact. Results & Data ([facility]) Vital Signs (Past 12 Hours) Vital Signs Temp Pulse Pulse Resp BP BP BP 08/03/19 07:38 36.6 C 81 18 112/75 08/03/19 05:50 82 107/70 08/03/19 02:30 36.5 C 85 19 120/72 08/03/19 00:20 87 104/64 08/03/19 00:04 89 08/02/19 22:22 37.2 C 90 20 138/74 08/02/19 21:30 91 H 22 123/62 Pulse Ox 08/03/19 07:38 96 08/03/19 05:50 08/03/19 02:30 96 08/03/19 00:20 08/03/19 00:04 08/02/19 22:22 93 08/02/19 21:30 93 Resident Activity Tracking Resident Involvement: Resident Care Provided Care Provided: Adult Hospital Medicine (1) Community acquired pneumonia Laterality: unspecified laterality Qualified Code(s): J18.9 - Pneumonia, unspecified organism (2) Sepsis Sepsis acute organ dysfunction status: unspecified Sepsis type: sepsis due to unspecified organism Qualified Code(s): A41.9 - Sepsis, unspecified organism (3) Pneumonia Laterality: unspecified laterality Lung location: unspecified part of lung Pneumonia type: due to unspecified organism Qualified Code(s): J18.9 - Pneumonia, unspecified organism
[2019-08-03] MEDS: OMEGA-3 (PURIFIED FISH OIL) 1 GM CAP PO SCH (09:31)
[2019-08-03] MEDS: INSULIN ASPART 100 UNITS/ML 3 ML PEN SC SCH ×4 (09:42→21:18)
[2019-08-03] MEDS: INSULIN GLARGINE SOLOSTAR 100 UNITS/ML 3 ML PEN SQ SCH (09:45)
--- NOTE | 2019-08-03 10:07 | Cardiology Consultation ---
Date of Consultation August 03, 2019 Assessment & Plan (1) Elevated troponin: 2. Healthcare associated pneumonia 3. End-stage renal disease on HD 4. 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 Lower extremity PAD post bilateral lower extremity interventions and right BKA 6. Insulin-dependent diabetes 7. Hypertension, dyslipidemia 8. Anemia Patient admitted with worsening shortness of breath, low-grade fevers and chest x-ray suggestive of pneumonia. Found to have elevated troponin to [address] changes on ECG. Patient has remained chest pain-free, hemodynamically and electrically stable. Troponin may represent some degree of demand ischemia in the setting of infection or recurrent SVT which has occurred in the setting of dialysis before. However with prior infections and admissions troponin elevations have always been minimal. With patient's known vascular disease and risk factors suspicion for coronary artery disease is high and ECG suggestive of multivessel disease. Additional risk verification warranted. Discussed options including nuclear stress versus cardiac catheterization. With high suspicion for disease would favor proceeding directly with catheterization. As patient is stable, catheterization is not urgent and patient to think about procedure and discuss with her . For now-- -- continue heparin infusion -- continue home aspirin, clopidogrel -- continue Nitropaste and and home metoprolol, statin -- Okay to continue prior amiodarone for now but long-term use should be reassessed as an outpatient. -- If wishes to proceed with catheterization we will plan on doing tomorrow via right radial/?ulnar artery. History of Present Illness Attending Physician: Yasir Ewing, History of Present Illness Mrs. Bennett is a very pleasant 69-year-old woman with a history of significant lower extremity peripheral arterial disease post multiple interventions and prior right BKA, insulin-dependent diabetes complicated by nephropathy and peripheral neuropathy, end-stage renal disease on dialysis via left upper extremity fistula, hypertension, dyslipidemia, hypothyroidism, MARIAN, prior paroxysmal SVT thought secondary to AVNRT, chronic RBBB. She was admitted yesterday with worsening shortness of breath. Cardiology consulted for suspected ACS. Patient states was in her usual state of health and underwent dialysis as scheduled 2 days ago on Wednesday. Reports some shortness of breath during session requiring use of oxygen, thinks 3 L removed. Feeling normally post dialysis session. Yesterday noted worsening shortness of breath and fever at home to 101. Denies any chest pain. Denies worsening lower extremity edema. Denies cough, URI symptoms or sick contacts. Upon presentation to ED hemodynamically stable, low-grade fever, chest x-ray suggestive of left lower lobe pneumonia started on broad-spectrum antibiotics. ECG with significant changes, anterolateral ST depression/T wave inversions, subtle ST elevation in V2 and AVR. Initial troponin 12.9, trending down 12.3, 10.5. Continued on prior aspirin, clopidogrel and started on heparin infusion. This morning reports breathing easier, on oxygen. No fevers overnight. Telemetry unremarkable. No chest pain on Nitropaste. Social history: , lives with her . Lifelong non-smoker. Allergies Allergy/AdvReac Type Severity Reaction Status Date / Time No Known Allergies Allergy Verified 07/07/19 10:22 Home Medications Home Medications Medication Instructions Recorded Confirmed Type latanoprost 1 drp OPB HS 05/14/18 08/02/19 History levothyroxine 50 mcg PO QAM 05/14/18 08/02/19 History omega-3 acid ethyl esters 1 g PO DAILY 05/14/18 08/02/19 History aspirin [Aspir-81] 81 mg PO HS 07/23/18 08/02/19 History cholecalciferol (vitamin D3) 50,000 units PO WK 07/23/18 08/02/19 History metoprolol tartrate 100 mg tablet 100 mg PO BID #180 tab 12/30/18 08/02/19 Rx insulin glargine 100 unit/mL (3 See Rx Instructions SUBCUT 05/15/19 08/02/19 Rx mL) subcutaneous pen .COMPLEX #30 ml amiodarone 200 mg PO BID 05/23/19 08/02/19 History atorvastatin 40 mg PO QAM #30 tab 05/27/19 08/02/19 Rx Auryxia 2 tab PO TIDM 06/21/19 08/02/19 History furosemide 40 mg PO BID 06/21/19 08/02/19 History oxycodone-acetaminophen 5 mg-325 1 tab PO DAILY PRN #30 tab 07/11/19 08/02/19 Rx mg tablet insulin aspart U-100 100 unit/mL See Rx Instructions .ROUTE 07/26/19 08/02/19 Rx (3 mL) subcutaneous pen .COMPLEX #15 ml clopidogrel 75 mg tablet 75 mg PO DAILY #90 tab 08/01/19 08/02/19 Rx pregabalin 25 mg capsule 25 mg PO BID #60 cap 08/03/19 Rx Patient History Medical History (Updated 08/03/19 @ 09:17 by Peyman Baugh MD) Anemia (Chronic 05/24/13) AVNRT (AV alondra re-entry tachycardia) Chronic diastolic CHF (congestive heart failure) Colon cancer screening Diabetes mellitus (Resolved) Diabetes mellitus type 2 with complications (Chronic) Diabetic nephropathy (Chronic) Diabetic peripheral neuropathy associated with type 2 diabetes mellitus Dialysis patient (Chronic) End-stage renal disease (ESRD) ESRD on dialysis (Chronic) dialysis--tue/thur/sat GI (gastrointestinal bleed) (Resolved 05/24/13) Gout History of colon cancer (Chronic) 2008--sx, chemo History of diabetic ulcer of foot (Chronic) Hyperlipidemia (Chronic) Hypertension (Chronic) Hypothyroidism (Chronic) Hypoxia (Resolved) Left posterior fascicular block (LPFB) (Chronic) Morbid obesity with BMI of 40.0-44.9, adult (Inactive) Obesity Palpitations (Resolved) Paroxysmal atrial fibrillation (Chronic) on plavix follows with Kip Fletcher Paroxysmal supraventricular tachycardia (Chronic) PVD (peripheral vascular disease) (Chronic) RBBB (right bundle branch block) (Chronic) SIRS (systemic inflammatory response syndrome) (Resolved) Sleep apnea (Chronic) does not use CPAP Surgical History Arteriovenous fistula left arm 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) History of bilateral cataract extraction History of bladder surgery per pt half of bladder removed during colectomy History of colectomy 4 ft removed History of colonoscopy History of colostomy History of colostomy reversal History of tonsillectomy and adenoidectomy History of total hysterectomy with bilateral salpingo-oophorectomy (BSO) History of wisdom tooth extraction Hx of right BKA (Resolved) Family History Mother Breast cancer Grandfather Myocardial infarction Father Family history of diabetes mellitus Other No family history of adverse response to anesthesia Social History Preferred Language: Pashto Communication Ability: Effective Visual Impairment: No Limitations Verification Clerk Required: No Beliefs That Will Affect Care: None marital status: Current Living Situation: Spouse current occupational status: retired Other Information That Helps Us Care for You: No Feels Safe at Home: Yes Safety Concerns: Feels Safe At This Time Smoking Status: Never smoker Do You Dip or Chew Tobacco: No ; Second Hand Exposure: No ; Tobacco Cessation Education Requested by Patient: No Hx Alcohol Use: No Hx Substance Use: No Review of Systems Review of Systems: All systems reviewed & are unremarkable except as noted in HPI & below Physical Exam Physical Exam: General: Comfortable, no acute distress Eyes: Sclerae anicteric, extraocular movements intact HENT: Oropharynx clear mucous membranes moist Lungs: Few crackles at bases bilaterally. Tachypneic with attempts to sit up Cardiac: Regular rate and rhythm, no murmurs Vascular: Palpable thrill in left upper extremity fistula. Diminished right radial pulse. Left lower extremity well perfused. DP/PT pulses diminished Abdomen: Soft, nontender Extremities: No edema Skin: No rashes or lesions. Psych: Alert orient x3, normal affect and mood Results & Data Vital Signs (Past 12 Hours) Vital Signs Temp Pulse Pulse Resp BP BP Pulse Ox 08/03/19 08:00 82 08/03/19 07:38 97.9 F 81 18 112/75 96 08/03/19 05:50 82 107/70 08/03/19 02:30 97.7 F 85 19 120/72 96 08/03/19 00:20 87 104/64 08/03/19 00:04 89 08/02/19 22:22 99.0 F 90 20 138/74 93 Laboratory Results Echo 01/2019: Technically limited, normal LV function, unable to exclude wall motion abnormalities PG Care Time/CCT Total # of Minutes Spent Total Time Spent with Patient: Total time spent is greater than 50% in coor dination of care (as documented) at patient's floor/unit and/or counseling patient: Coding Level of Care Code 76073 Inpt Consult Level 4 Diagnoses Elevated troponin R79.89
[2019-08-03] MEDS ORDERED: SODIUM CHLORIDE 0.9% 1000ML 1,000 ML IV PRN (10:33)
--- NOTE | 2019-08-03 10:55 | Nephrology Consultation ---
Date of Consultation August 03, 2019 Assessment & Plan (1) End-stage renal disease (ESRD): -- TTS dialysis at [facility] (3hr 45min 3K 3Ca F-180NR EDW 104.5, LUE BC AVF) -- Will provide HD today for correction of hyperkalemia. No UF ordered as BP is relatively low, CXR is negative for CHF and patient appears euvolemic. HD RN notified (2) Non-ST elevation [place] (NSTEMI): -- POC discussed w/ Cardiology this morning. OK to dialyze today for correction of electrolyte balance. Plan for cardiac cath in am (3) Fever: -- CXR w/ possible LLL infiltrate -- Blood & urine cx are pending -- Patient is on empiric Cefipime and Levaquin History of Present Illness Attending Physician: Yasir Ewing, History of Present Illness Mrs. Bennett is a 69 year old white female who is seen at the request of Dr. Ewing to provide inpatient HD and assist w/ medical management. Medical records in the EMR were reviewed today and are summarized as follows: Mrs. Bennett has ESRD due to HTN and microvascular disease. She dialyzes TTS at [facility] (3hr 45min 3K 3Ca F-180NR EDW 104.5, LUE BC AVF). Her medical history is significant for obesity, MARIAN, AODM, PVD s/p R BKA 06/12, hypercholesterolemia, chronic RBBB, paroxysmal atrial fibrillation (on plavix & amiodarone), hyp othyroidism, gout, colon CA s/p colectomy w/ ileostomy (ileostomy reversed 2010), partial cystectomy (infiltrating colon CA). Mrs. Bennett presented to the ED last evening w/ SOB and fever. Evaluation revealed possible LLL infitrate. Troponin was elevated at 12. ECG revealed ischemic changes in anterolateral leads. Mrs. Bennett has been evaluated by Cardiology. She has been admitted to the PCU and started on heparin gtt and broad spectrum antibiotics. Mrs. Bennett is currently hemodynamically stable and CP free. Cardiac catheterization is planned for tomorrow. Nephrology consultation has been requested to provide HD due to hyperkalemia and in preparation for cardiac catheterization Allergies Allergy/AdvReac Type Severity Reaction Status Date / Time No Known Allergies Allergy Verified 07/07/19 10:22 Home Medications Home Medications Medication Instructions Recorded Confirmed Type latanoprost 1 drp OPB HS 05/14/18 08/02/19 History levothyroxine 50 mcg PO QAM 05/14/18 08/02/19 History omega-3 acid ethyl esters 1 g PO DAILY 05/14/18 08/02/19 History aspirin [Aspir-81] 81 mg PO HS 07/23/18 08/02/19 History cholecalciferol (vitamin D3) 50,000 units PO WK 07/23/18 08/02/19 History metoprolol tartrate 100 mg tablet 100 mg PO BID #180 tab 12/30/18 08/02/19 Rx insulin glargine 100 unit/mL (3 See Rx Instructions SUBCUT 05/15/19 08/02/19 Rx mL) subcutaneous pen .COMPLEX #30 ml amiodarone 200 mg PO BID 05/23/19 08/02/19 History atorvastatin 40 mg PO QAM #30 tab 05/27/19 08/02/19 Rx Auryxia 2 tab PO TIDM 06/21/19 08/02/19 History furosemide 40 mg PO BID 06/21/19 08/02/19 History oxycodone-acetaminophen 5 mg-325 1 tab PO DAILY PRN #30 tab 07/11/19 08/02/19 Rx mg tablet insulin aspart U-100 100 unit/mL See Rx Instructions .ROUTE 07/26/19 08/02/19 Rx (3 mL) subcutaneous pen .COMPLEX #15 ml clopidogrel 75 mg tablet 75 mg PO DAILY #90 tab 08/01/19 08/02/19 Rx pregabalin 25 mg capsule 25 mg PO BID #60 cap 08/03/19 Rx Patient History Medical History (Updated 08/03/19 @ 11:08 by Zander Jordan MD) Anemia (Chronic 05/24/13) AVNRT (AV alondra re-entry tachycardia) Chronic diastolic CHF (congestive heart failure) Colon cancer screening Diabetes mellitus (Resolved) Diabetes mellitus type 2 with complications (Chronic) Diabetic nephropathy (Chronic) Diabetic peripheral neuropathy associated with type 2 diabetes mellitus Dialysis patient (Chronic) End-stage renal disease (ESRD) ESRD on dialysis (Chronic) dialysis--tue/thur/sat GI (gastrointestinal bleed) (Resolved 05/24/13) Gout History of colon cancer (Chronic) 2008--sx, chemo History of diabetic ulcer of foot (Chronic) Hyperlipidemia (Chronic) Hypertension (Chronic) Hypothyroidism (Chronic) Hypoxia (Resolved) Left posterior fascicular block (LPFB) (Chronic) Morbid obesity with BMI of 40.0-44.9, adult (Inactive) Obesity Palpitations (Resolved) Paroxysmal atrial fibrillation (Chronic) on plavix follows with Kip Fletcher Paroxysmal supraventricular tachycardia (Chronic) PVD (peripheral vascular disease) (Chronic) RBBB (right bundle branch block) (Chronic) SIRS (systemic inflammatory response syndrome) (Resolved) Sleep apnea (Chronic) does not use CPAP Surgical History Arteriovenous fistula left arm 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) History of bilateral cataract extraction History of bladder surgery per pt half of bladder removed during colectomy History of colectomy 4 ft removed History of colonoscopy History of colostomy History of colostomy reversal History of tonsillectomy and adenoidectomy History of total hysterectomy with bilateral salpingo-oophorectomy (BSO) History of wisdom tooth extraction Hx of right BKA (Resolved) Family History Mother Breast cancer Grandfather Myocardial infarction Father Family history of diabetes mellitus Other No family history of adverse response to anesthesia Social History Preferred Language: Palauan Communication Ability: Effective Visual Impairment: No Limitations [place] Tender Required: No Beliefs That Will Affect Care: None marital status: Current Living Situation: Spouse current occupational status: retired Other Information That Helps Us Care for You: No Feels Safe at Home: Yes Safety Concerns: Feels Safe At This Time Smoking Status: Never smoker Do You Dip or Chew Tobacco: No ; Second Hand Exposure: No ; Tobacco Cessation Education Requested by Patient: No Hx Alcohol Use: No Hx Substance Use: No Review of Systems Constitutional: + fever; no chills and no weakness Eyes: no worsening vision and no problem reported Ear, Nose, Mouth, Throat: no problem reported Respiratory: no cough and no dyspnea Cardiovascular: no chest pain, no palpitations and no edema Gastrointestinal: no abdominal pain, no nausea, no vomiting and no diarrhea/loose stools Genitourinary: no dysuria and no hematuria Musculoskeletal: no back pain Integumentary: no rash Neurologic: no falls, no dizziness and no confusion Physical Exam Constitutional: + ill appearing; not in distress Eyes: PERRL, conjunctivae normal, anicteric sclerae ENMT: external ear and nose normal, oropharynx normal Neck: trachea midline, no thyromegaly Respiratory: Auscultation: + rales (LLL) Cardiovascular: RRR, no murmur, no edema Extremities: + AV fistula (+ bruit) Gastrointestinal (Abdomen): normal bowel sounds, soft, nontender, no hepatosplenomegaly Musculoskeletal: Extremities: no cyanosis R BKA site well healed Skin: no rashes, warm and dry Neurologic: awake; not confused Results & Data Vital Signs (Past 12 Hours) Vital Signs Temp Pulse Pulse Resp BP BP Pulse Ox 08/03/19 08:00 82 08/03/19 07:38 36.6 C 81 18 112/75 96 08/03/19 05:50 82 107/70 08/03/19 02:30 36.5 C 85 19 120/72 96 08/03/19 00:20 87 104/64 08/03/19 00:04 89 Laboratory Results Laboratory Tests 08/02/19 08/03/19 18:53 07:21 WBC 7.78 Hgb 10.1 L Hct 31.2 L Plt Count 122 L Sodium 130 L Potassium 5.9 H D Chloride 91 L BUN 36 H Creatinine 7.36 H* D Glucose 234 H PG Care Time/CCT Total # of Minutes Spent Total Time Spent with Patient: Total time spent is greater than 50% in coordination of care (as documented) at patient's floor/unit and/or counseling patient: Coding Level of Care Code 12006 Inpt Consult Level 5 Diagnoses End-stage renal disease (ESRD) N18.6 Non-ST elevation NH (NSTEMI) I21.4 Fever R50.9
--- NOTE | 2019-08-03 12:30 | XCELERA ---
[id number] \\[email or web address]\[id number]_[email or web address]\[id number]
--- NOTE | 2019-08-03 12:31 | Dialysis Progress Note ---
Date of Service August 03, 2019 Assessment & Plan (1) End-stage renal disease (ESRD): -- Mrs. Bennett was seen & evaluated while on HD. Currently hemodynamically stable. No angina or dyspnea. AVF functioning well. No change to current dialysis prescription Subjective Mrs. Bennett was seen & evaluated during HD this afternoon. She voices no medical concerns and appears comfortable Review of Systems Respiratory: no dyspnea Cardiovascular: no chest pain Physical Exam Respiratory: Auscultation: + rales (LLL) Cardiovascular: Rate/Rhythm: regular rate Neurologic: alert Results & Data Vital Signs (Past 12 Hours) Vital Signs Temp Pulse Pulse Resp BP BP Pulse Ox 08/03/19 11:22 36.7 C 84 18 146/80 H 94 08/03/19 08:00 82 08/03/19 07:38 36.6 C 81 18 112/75 96 08/03/19 05:50 82 107/70 08/03/19 02:30 36.5 C 85 19 120/72 96 [facility] Procedure Codes (Charges) Renal/Urologic Renal/Urologic: 16676 Hemodialysis, One Evaluation Coding Level of Care Code None Diagnoses End-stage renal disease (ESRD) N18.6 CPT Codes Renal/Urologic - Renal/Urologic: 52324 Hemodialysis, One Evaluation ([id number])
--- NOTE | 2019-08-03 13:49 | Electrocardiogram Report ---
Test Reason : Blood Pressure : / mmHG Vent. Rate : 098 BPM Atrial Rate : 098 BPM P-R Int : 164 ms QRS Dur : 168 ms QT Int : 418 ms P-R-T Axes : 086 142 117 degrees QTc Int : 533 ms Normal sinus rhythm Right axis deviation Right bundle branch block Diffuse T wave abnormality Abnormal ECG When compared with ECG of 21-JUN-2019 21:18, Diffuse T wave abnormality now present Confirmed by Donte Cesar ([id number]) on 08/03/2019 1:49:23 PM Referred By: REFERRED SELF Confirmed By:Donte Cesar
--- NOTE | 2019-08-03 13:51 | Electrocardiogram Report ---
Test Reason : Blood Pressure : / mmHG Vent. Rate : 093 BPM Atrial Rate : 093 BPM P-R Int : 168 ms QRS Dur : 168 ms QT Int : 430 ms P-R-T Axes : 024 139 152 degrees QTc Int : 534 ms Normal sinus rhythm Right axis deviation Right bundle branch block Diffuse T wave abnormality Abnormal ECG When compared with ECG of 02-AUG-2019 18:50, No significant change Confirmed by Donte Cesar ([id number]) on 08/03/2019 1:51:00 PM Referred By: REFERRED SELF Confirmed By:Donte Cesar
[2019-08-03] MEDS: HEPARIN SODIUM/DEXTROSE 25,000 UNITS/500 ML BAG IV SCH (14:37)
--- NOTE | 2019-08-03 17:52 | Billing Data ---
Date of Service August 03, 2019 Coding Level of Care Code 62749 Subseq Hosp Care Lvl 3
[2019-08-03] MEDS: OXYCODONE/ACETAMINOPHEN 5mg/325mg TAB PO PRN (19:18)
[2019-08-03] MEDS ORDERED: CEFEPIME 500 MG in SYRINGE 0 ML IV SCH (20:00)
[2019-08-03] MEDS: ASPIRIN 81 MG ECTAB PO SCH (21:11)
[2019-08-03] MEDS: LATANOPROST 0.005% OP SOLN 2.5 ML BTL OPB SCH (21:13)
[2019-08-04] MEDS: METOPROLOL TARTRATE 50 MG TAB PO SCH ×3 (06:13→20:17)
[2019-08-04] MEDS: NITROGLYCERIN 2% OINTMENT 30GM TUBE EXT SCH ×3 (06:13→17:34)
[2019-08-04] MEDS: LEVOTHYROXINE SODIUM 50 MCG TABLET PO SCH (06:16)
[2019-08-04] MEDS: OMEGA-3 (PURIFIED FISH OIL) 1 GM CAP PO SCH (07:29)
[2019-08-04 07:33] LABS: Hematocrit (blood only) 28.2 % (37-47); Mean Corpuscular Hemoglobin 32.1 pg (25-34); Mean Corpuscular Hgb Conc 31.9 g/dL (32-36); Mean Corpuscular Volume 100.7 fL (80-100); Platelet Count 123 K/uL (130-400); RDW Coefficient of Variation 18.6 % (11.5-14.5); RDW Standard Deviation 68.8 fL (36.4-46.3); White Blood Count 6.68 K/uL (4.8-10.8)
[2019-08-04 07:54] LABS: INR 1.3 (0.9-1.1); Partial Thromboplastin Ratio 1.8; Prothrombin Time 13.1 Seconds (9.0-12.0)
[2019-08-04 07:55] LABS: Partial Thromboplastin Time 49.9 Seconds (21.0-31.0)
--- NOTE | 2019-08-04 08:02 | Cardiology Progress Note ---
Date of Service August 04, 2019 Assessment & Plan (1) Elevated troponin: 2. Healthcare associated pneumonia 3. End-stage renal disease on HD 4. 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 Lower extremity PAD post bilateral lower extremity interventions and right BKA 6. Insulin-dependent diabetes 7. Hypertension, dyslipidemia 8. Anemia No chest pain. Troponin peaked. Electrically stable. Technically limited echo shows preserved LV function. Repeat labs for today pending. Plan for cardiac cath later today via right radial/ulnar artery. Subjective Feeling fine this morning. Breathing still not at baseline but improved. Denies chest pain. HD yesterday. Telemetry reviewed -- no events. Review of Systems Review of Systems: All systems reviewed & are unremarkable except as noted in HPI & below Physical Exam Physical Exam: General: Comfortable, no acute distress Eyes: Sclerae anicteric Lungs: Clear anteriorly Cardiac: Regular rate and rhythm, no murmurs Abdomen: Soft, nontender Psych: Alert orient x3, normal affect and mood Extremities/Vascular: -- No right LE edema. well perfused Results & Data Vital Signs (Past 12 Hours) Vital Signs Temp Pulse Pulse Resp BP Pulse Ox 08/04/19 04:45 98.4 F 83 18 124/77 93 08/03/19 23:59 85 08/03/19 23:46 99.5 F 88 18 108/69 95 PG Care Time/CCT Total # of Minutes Spent Total Time Spent with Patient: Total time spent is greater than 50% in coordination of care (as documented) at patient's floor/unit and/or counseling patient: Coding Level of Care Code 77563 Subseq Hosp Care Lvl 2 Diagnoses Elevated troponin R79.89
[2019-08-04 08:27] LABS: Albumin Level 2.4 gm/dl (3.4-5.0); BUN Creatinine Ratio 4.3 (10-20); Calcium 9.1 mg/dl (8.5-10.1); Est GFR (African American) 7.8; Est GFR (Non-African American) 6.8; Magnesium 2.1 mg/dl (1.8-2.4); Phosphorus 7.2 mg/dl (2.5-4.9); Potassium 5.1 mmol/L (3.5-5.1)
[2019-08-04] MEDS: INSULIN ASPART 100 UNITS/ML 3 ML PEN SC SCH ×4 (08:48→20:18)
[2019-08-04] MEDS: HEPARIN SODIUM/DEXTROSE 25,000 UNITS/500 ML BAG IV SCH ×2 (08:49→17:49)
[2019-08-04] MEDS: INSULIN GLARGINE SOLOSTAR 100 UNITS/ML 3 ML PEN SQ SCH (08:50)
[2019-08-04] MEDS: ATORVASTATIN 40 MG TAB PO SCH (08:51)
[2019-08-04] MEDS: FUROSEMIDE 40 MG TAB PO SCH ×2 (08:51→20:17)
[2019-08-04] MEDS: CLOPIDOGREL BISULFATE 75 MG TAB PO SCH (08:51)
[2019-08-04] MEDS: PREGABALIN 25 MG CAP PO SCH ×2 (08:51→20:16)
[2019-08-04] MEDS: AMIODARONE 200 MG TAB PO SCH ×2 (08:51→20:17)
--- NOTE | 2019-08-04 10:12 | Nephrology Progress Note ---
Date of Service August 04, 2019 Assessment & Plan (1) End-stage renal disease (ESRD): -- Volume status and electrolyte balance are acceptable. No acute indication for HD today. Will schedule next HD for am (2) Non-ST elevation [place] (NSTEMI): -- Cardiac cath scheduled for this afternoon. Await report (3) Fever: -- Defervesced. On empiric Cefipime. Urine culture + for pansensitive E. Coli Subjective Mrs. Bennett was seen & examined in the PCU this morning. She was dialyzed yesterday due to hyperkalemia. Serum potassium is down to 5.1 this morning. Mrs. Bennett was afebrile overnight. She has had no angina. She is scheduled for cardiac catheterization this afternoon. Review of Systems Constitutional: + weakness; no fever Eyes: no worsening vision and no problem reported Ear, Nose, Mouth, Throat: no problem reported Respiratory: no cough and no dyspnea Cardiovascular: no chest pain, no palpitations and no edema Gastrointestinal: no abdominal pain, no nausea, no vomiting and no diarrhea/loose stools Genitourinary: no dysuria and no hematuria Musculoskeletal: no back pain Integumentary: no rash Neurologic: no falls, no dizziness and no confusion Physical Exam Constitutional: + ill appearing; not in distress Eyes: PERRL, conjunctivae normal, anicteric sclerae ENMT: external ear and nose normal, oropharynx normal Neck: trachea midline, no thyromegaly Respiratory: normal respiratory effort, lungs clear to auscultation Cardiovascular: RRR, no murmur, no edema Rate/Rhythm: regular rate Extremities: + AV fistula (+ bruit) Gastrointestinal (Abdomen): normal bowel sounds, soft, nontender, no hepatosplenomegaly Musculoskeletal: Extremities: no cyanosis Skin: no rashes, warm and dry Neurologic: awake; not confused Results & Data Vital Signs (Past 12 Hours) Vital Signs Temp Pulse Pulse Resp BP BP Pulse Ox 08/04/19 07:03 37.1 C 80 18 128/77 96 08/04/19 04:45 36.9 C 83 18 124/77 93 08/03/19 23:59 85 08/03/19 23:46 37.5 C 88 18 108/69 95 Laboratory Results Laboratory Tests 08/04/19 08/04/19 07:10 07:10 WBC 6.68 Hgb 9.0 L Hct 28.2 L Plt Count 123 L Sodium 132 L Potassium 5.1 Chloride 97 L Carbon Dioxide 26 BUN 25 H Creatinine 5.84 H* D Glucose 219 H PG Care Time/CCT Total # of Minutes Spent Total Time Spent with Patient: Total time spent is greater than 50% in coordination of care (as documented) at patient's floor/unit and/or counseling patient: Coding Level of Care Code 32600 Subseq Hosp Care Lvl 3 Diagnoses End-stage renal disease (ESRD) N18.6 Non-ST elevation [place] (NSTEMI) I21.4 Fever R50.9
[2019-08-04] MEDS ORDERED: HEPARIN (PORCINE) 1000 UNIT/ML 10 ML (CATH LAB USE ONLY) ONE (12:54)
[2019-08-04] MEDS ORDERED: NiCARDipine HCL INJ 2.5 MG/ML 10 ML AMP ONE (12:54)
[2019-08-04] MEDS ORDERED: fentaNYL citrate 100 MCG/2 ML VIAL ONE (12:54)
[2019-08-04] MEDS ORDERED: NITROGLYCERIN/D5W 100MCG/ML 20ML SYR ONE (12:55)
[2019-08-04] MEDS ORDERED: MIDAZOLAM HCL 1 MG/ML 2ML VIAL ONE (12:55)
--- NOTE | 2019-08-04 13:39 | Hospitalist Progress Note ---
Date of Service August 04, 2019 Assessment & Plan (1) Non-ST elevation [place] (NSTEMI): Umu Mars is a 69-year-old female with a past medical history of end- stage renal disease on hemodialysis, type 2 diabetes mellitus with neuropathy and past right BKA, CHF class III, obesity, atrial fibrillation, paroxysmal SVT, and colon cancer who was admitted with shortness of breath and fatigue and he was found to have evidence of pneumonia with NSTEMI. NSTEMI Patient denies any chest pain leading up to this episode, but has had intermittent left shoulder pain at rest recently EKG on admission showed ST depressions in leads I, aVL, V4 to V6 Acute elevation of troponin to 12.9. She appears to have a baseline detectable troponin of approximately or less than 0.2, in the setting of severe renal disease. Now downtrending. Evidence of pneumonia did as below TTE limited by body habitus, report pending Asymptomatic at time of visit today. Case discussed with cardiology. Pending cardiac catheterization today Continue aspirin 81 mg, Plavix 75 mg (on dual antiplatelet therapy baseline due to peripheral vascular disease) Continue atorvastatin 40 mg daily Continue metoprolol 100 mg twice daily Heparin GTT Pneumonia in dialysis pt Febrile to 38.3 on admission, lactate elevated to 2.2 which normalized with 1 L fluid bolus Patient with total intake 2.2 L with additional IV medications, output 30 cc Afebrile overnight - CXR with LLL infiltrate - Procal, CRP elevated On cefepime and levofloxacin IV in ED, expanded to Vanco/Zosyn/levofloxacin, narrowed to cefepime for Pseudomonas coverage. MRSA nares negative. -Continue cefepime monotherapy Type 2 diabetes mellitus with neuropathy, insulin-dependent Hemoglobin A1c on admission 7.6 Prior to admission on glargine 36 units every morning, 80 units every afternoon. Insulin aspart 15 units breakfast, 15 units lunch, 20 units dinner plus sliding scale - On glargine 20u daily on admit with SSI CF 1:20 / ratio 1:6 End-stage renal disease on hemodialysis, M/W/F Nephrology consulted for dialysis -Post dialysis yesterday, potassium 5.1 today - Dialysis diet as below SVT (AVNRT) versus paroxysmal atrial fibrillation First charted from a discharge summary in [facility] - BB as above, on tele CHF NYHA class III Cardiac medications as above, dialysis as above Hypothyroidism Continue Synthroid 50 mcg every morning DVT prophylaxis: Heparin GTT as above FEN GI: N.p.o. pending cath Disposition: Ongoing Social: Prior to admission lives at home independently with her . (2) Pneumonia: (3) Sepsis: (4) End-stage renal disease (ESRD): (5) Hypoxia: (6) Community acquired pneumonia: (7) Diabetes mellitus type 2 with complications: (8) Congestive heart failure with LV diastolic dysfunction, NYHA class 3: Supervising Physician Co-Signing Physician Notes I personally examined the patient and verified all sierra points of history and exam, discussed case, and agree with decision making with Dr Baugh. Feeling okay. No new complaints. Understands plan. No new questions. Vitals noted, in general she is awake and alert pleasant no distress. HEENT normocephalic atraumatic mucous membranes are moist. Breathing unlabored no a ccessory muscle use good effort. Skin shows no rashes no pallor or icterus. Left lower lobe healthcare associated pneumonia- Continue cefepime. Seems surprisingly stable/improved. This was likely the physiologic stressor that led to her NSTEMI NSTEMItroponin is peaked and is on its way down, not surprisingly, but unfortunately, she has diffuse diseasebut agree with cardiology that she would be certainly quite high risk for bypass, continue med management and try to intervene percutaneously as possible. DVT prophylaxiscurrently on heparin drip Otherwise as above Sammi Sanz is seen at the bedside today. She continues to have no chest pain. She is not short of breath at rest. She feels well at this time. She is hungry, melendez s been n.p.o. since midnight. Reports she is nervous about the catheterization. Believes that the cath is going to be performed shortly after noon. No other questions or concerns at this time. Review of Systems Review of Systems: All systems reviewed & are unremarkable except as noted in HPI & below Physical Exam Physical Exam: General: A&Ox3. NAD. Cooperative. HEENT: Atraumatic, normocephalic. Pulm: Diminished in the bases bilaterally, bibasilar crackles. Symmetrical chest rise. No increase work of breathing. No respiratory distress. Cardiac: RRR, -mrg. Radial pulses intact and symmetrical. Abdominal: Obese, nontender. Extremity: Status post right BKA. Left lower extremity intact, warm, sensation intact. Results & Data ([facility]) Vital Signs (Past 12 Hours) Vital Signs Temp Pulse Resp BP BP Pulse Ox 08/04/19 13:09 84 19 114/69 95 08/04/19 11:03 36.7 C 79 18 122/79 94 08/04/19 07:03 37.1 C 80 18 128/77 96 08/04/19 04:45 36.9 C 83 18 124/77 93 Resident Activity Tracking Resident Involvement: Resident Care Provided Care Provided: Adult Hospital Medicine (1) Community acquired pneumonia Laterality: unspecified laterality Qualified Code(s): J18.9 - Pneumonia, unspecified organism (2) Sepsis Sepsis acute organ dysfunction status: unspecified Sepsis type: sepsis due to unspecified organism Qualified Code(s): A41.9 - Sepsis, unspecified organism (3) Pneumonia Laterality: unspecified laterality Lung location: unspecified part of lung Pneumonia type: due to unspecified organism Qualified Code(s): J18.9 - Pneumonia, unspecified organism
--- NOTE | 2019-08-04 15:36 | Post Anesthesia Assessment ---
Date of Service August 04, 2019 Post Sedation Assessment Vital Signs Temp Pulse Pulse Resp BP BP Pulse Ox 08/04/19 13:09 84 19 114/69 95 08/04/19 11:03 98.1 F 79 18 122/79 94 08/04/19 07:03 98.8 F 80 18 128/77 96 08/04/19 04:45 98.4 F 83 18 124/77 93 08/03/19 23:59 85 08/03/19 23:46 99.5 F 88 18 108/69 95 08/03/19 19:17 99.3 F 93 H 20 112/68 91 08/03/19 15:36 97.9 F 84 20 119/74 93 Recovery Score Activity: Moves 4 extremities Respiration: Deep Breath/Cough Circulation: +/-20% PreAnes Value Consciousness: Fully Awake Oxygen Saturation: O2 needed for >90% Discharge Sedation Level of Care: Fast Track Phase II Post Sedation Plan On clinical assessment, the patient appears to have tolerated the sedation without complications. Patient is recovering as anticipated. Patient will continue to be monitored by nursing and may be discharged when sedation discharge criteria are met per below protocol. Upon Completions of procedure up to 15 minutes continue every 5 minute vital signs and the P.A.R. score; then discharge to a Phase I or Fast Track to Phase II per the following guidelines: * Discharge Patient to appropriate Phase II area if PAR is 8 or greater or return to pre- procedure baseline. The post - procedure orders will be as directed. * If PAR score is less than 8 or not return to pre-procedure baseline then patient will follow Phase I monitoring till PAR is reached for Phase II. The Phase I may be done in procedure room or may call to secure a Phase I area. * If naloxone or flumazenil are used for reversal, hold in Phase I for continued monitoring from when last reversal dose was given for a minimum of 60 minutes or longer pending the nurse and/or physician discretion of patient condition before discharge to Phase II. Please call the Sedation Physician to re-evaluate and complete post-note for discharge to Phase II area. Do NOT discharge from procedure sedation or Phase 1 until post- sedation evaluation note is complete by procedure /sedation MD Sedation Discharge Instructions to be given to the patient at discharge to home.
--- NOTE | 2019-08-04 15:46 | Cardiac Catheterization ---
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 Cardiac Status Clinical evaluation leading to the procedure CAD Presenation: STEMI Anginal Classification: CCS III Heart Failure: No Cardiogenic Shock within 24 Hours: No Cardiac Arrest within 24 Hours: No Imaging Studies Past 6 Months: Yes Stress Studies Past 6 Months: No Diagnostic Physicians Name: Shahram Hernandez MD Status: Elective Closure Device Closure Device: Radial Band Recommendations: PCI without planned CABG Intraprocedure Events Significant Disection: No Perforation: No Cardiac Cath Procedure Full Procedure Date August 04, 2019 Pre-Procedure Diagnosis Pre-Procedure Diagnosis: Non STEMI AUC Score AUC Score: 8 Post-Procedure Diagnosis Post-Procedure Diagnosis: Severe CAD and Elevated Intracardiac Pressures Procedure(s) Performed Procedure(s) Performed: Coronary Angiography and Left Heart Cath Fishing Boat Mate Shahram Hernandez MD Runner Worker(s) Deo Tobias Estimated Blood Loss Estimated Blood Loss: 15 Medication(s) Medication(s): Fentanyl, Heparin, Lidocaine 1%, Nicardipine, Nitroglycerin and Versed Summary of Findings Indication: NSTEMI Access: 6 Fr right radial artery Catheters: [place] Findings: LM -luminal irregularities LAD -moderate caliber vessel, 95% focal mid segment stenosis, distal luminal irregularities Circumflex -medium caliber vessel, calcified, 100% chronic mid segment occlusion. Terminal OM fills retrograde via left to left collaterals RCA -dominant, medium caliber, calcified, 60% mid segment disease, 95% distal disease, PDA with luminal irregularity LVEDP -36 Arterial Closure: TR band Summary: 1. Severe multivessel coronary artery disease -95% focal mid LAD 60% mid RCA, 95% distal RCA 100% chronic mid circumflex occlusion with distal vessel filling partially via left to left collaterals 2. Elevated intracardiac filling pressure Recommendations: Feel patient would be very high risk for bypass surgery. Focal LAD and RCA lesions amenable to PCI. Discussed options for revascularization with patient and family and agreeable to proceeding with PCI of LAD/RCA. Would medically manage chronic circumflex occlusion. Patient unable to lie flat during procedure today with elevated LV filling pressures in the 30s. Plan for PCI on Wednesday after additional dialysis. Discussed with Dr. Jordan. Continued heparin infusion, nitropatch Continue aspirin, load with clopidogrel today, continue DAPT for at least 1 year Hemodynamics Rest Ao:: 127/54/84 Final Ao: 133/62/89 LV: 145/36 Recommendations Recommendations: PCI without planned CABG Specimens Specimens: None Radiation Exposure (mGy) 1313 Contrast (mls) 50 Fluids (cc crystalloids) Fluids (cc crystalloids): 18 Drains Drains: none Anesthesia moderate Procedural Complication(s) None Disposition PCU I attest to the content of the Intraoperative Record and any orders documented therein. Any exceptions are noted below. [facility] Card Cath Procedure Codes Cardiac Catheterization Procedure 1: Cardiovascular Cath Procedures: 43265 Coronaries and LHC (+/-LV) Therapeutic Services & Ancillary Proc Procedure 1: Cardiovascular Tx and Anc Procedures: 13255 Ultrasonic Guidance Vascular Access Moderate Sedation Procedure 1: Sedation/Anesthesia: 07832 Mod Sedation by the same physician;Init15 Min Child Age 5 & Up Procedure 2: Sedation/Anesthesia: 46538 Mod Sedation by the same physician; Ea [id number] Minutes PG Care Time/CCT Total # of Minutes Spent Total Time Spent with Patient: Total time spent is greater than 50% in coordination of care (as documented) at patient's floor/unit and/or counseling patient:
[2019-08-04] MEDS ORDERED: CLOPIDOGREL BISULFATE 300 MG TAB PO STA (17:13)
--- NOTE | 2019-08-04 17:56 | Billing Data ---
Date of Service August 04, 2019 Coding Level of Care Code 13949 Subseq Hosp Care Lvl 3
[2019-08-04] MEDS ORDERED: LEVOFLOXACIN/D5W 500 MG/100 ML BAG IV SCH (19:00)
[2019-08-04] MEDS: OXYCODONE/ACETAMINOPHEN 5mg/325mg TAB PO PRN (20:16)
[2019-08-04] MEDS: LATANOPROST 0.005% OP SOLN 2.5 ML BTL OPB SCH (20:17)
[2019-08-04] MEDS: ASPIRIN 81 MG ECTAB PO SCH (20:17)
[2019-08-04] MEDS: CEFEPIME 1,000 MG in SYRINGE 0 ML IV SCH (20:22)
[2019-08-04 20:52] LABS: Partial Thromboplastin Ratio 1.1; Partial Thromboplastin Time 29.7 Seconds (21.0-31.0)
[2019-08-05] MEDS: NITROGLYCERIN 2% OINTMENT 30GM TUBE EXT SCH ×4 (00:58→16:52)
[2019-08-05 05:17] LABS: Hemoglobin 9.3 g/dL (12.0-16.0); Mean Corpuscular Hemoglobin 32.1 pg (25-34); Mean Corpuscular Hgb Conc 32.1 g/dL (32-36); Mean Platelet Volume 9.7 fL (7.4-10.4); Platelet Count 160 K/uL (130-400); RDW Coefficient of Variation 18.3 % (11.5-14.5)
[2019-08-05] MEDS: LEVOTHYROXINE SODIUM 50 MCG TABLET PO SCH (05:19)
[2019-08-05] MEDS: METOPROLOL TARTRATE 50 MG TAB PO SCH ×3 (05:19→20:39)
[2019-08-05 05:39] LABS: INR 1.4 (0.9-1.1); Partial Thromboplastin Ratio 1.8
[2019-08-05 05:43] LABS: Partial Thromboplastin Time 48.6 Seconds (21.0-31.0)
[2019-08-05 05:57] LABS: Albumin Level 2.4 gm/dl (3.4-5.0); BUN Creatinine Ratio 5.1 (10-20); Creatinine Clr Calc Pharmacy 8.8 ml/min; Est GFR (Non-African American) 5.2; Magnesium 2.4 mg/dl (1.8-2.4); Potassium 5.2 mmol/L (3.5-5.1)
[2019-08-05 06:42] LABS: Phosphorus 8.3 mg/dl (2.5-4.9)
[2019-08-05] MEDS ORDERED: SODIUM CHLORIDE 0.9% 1000ML 1,000 ML IV PRN (07:00)
[2019-08-05] MEDS ORDERED: EPOETIN ALFA 10,000 UNITS/ML VIAL IV ONE (07:00)
[2019-08-05] MEDS: CLOPIDOGREL BISULFATE 75 MG TAB PO SCH (07:45)
[2019-08-05] MEDS: ATORVASTATIN 40 MG TAB PO SCH (07:45)
[2019-08-05] MEDS: OMEGA-3 (PURIFIED FISH OIL) 1 GM CAP PO SCH (07:46)
[2019-08-05] MEDS: AMIODARONE 200 MG TAB PO SCH ×2 (07:46→07:49)
[2019-08-05] MEDS: FUROSEMIDE 40 MG TAB PO SCH ×2 (07:48→20:39)
[2019-08-05] MEDS: INSULIN GLARGINE SOLOSTAR 100 UNITS/ML 3 ML PEN SQ SCH (07:49)
[2019-08-05] MEDS: INSULIN ASPART 100 UNITS/ML 3 ML PEN SC SCH ×4 (07:57→20:39)
[2019-08-05] MEDS: PREGABALIN 25 MG CAP PO SCH ×2 (08:08→20:38)
[2019-08-05] MEDS ORDERED: CLOPIDOGREL BISULFATE 75 MG TAB PO SCH (09:00)
--- NOTE | 2019-08-05 10:19 | Nephrology Progress Note ---
Date of Service August 05, 2019 Assessment & Plan (1) End-stage renal disease (ESRD): -- HD today. Will attempt 4 L UF. EDW 104.5kg (2) Non-ST elevation [place] (NSTEMI): -- Case discussed w/ Dr. Hernandez. PCI scheduled for Wednesday. Will schedule next HD for Wednesday am in preparation for procedure (3) Fever: -- Defervesced. On empiric Cefipime. Urine culture + for pansensitive E. Coli Subjective Mrs. Bennett was seen & examined in her hospital room this morning. Cardiac catheterization yesterday revealed 3 v ASCVD. PCI is scheduled for Wednesday. Mrs. Bennett denies angina or dyspnea. Review of Systems Constitutional: + weakness; no fever Eyes: no worsening vision and no problem reported Ear, Nose, Mouth, Throat: no problem reported Respiratory: no cough and no dyspnea Cardiovascular: no chest pain, no palpitations and no edema Gastrointestinal: no abdominal pain, no nausea, no vomiting and no diarrhea/loose stools Genitourinary: no dysuria and no hematuria Musculoskeletal: no back pain Integumentary: no rash Neurologic: no falls, no dizziness and no confusion Physical Exam Constitutional: + ill appearing; not in distress Eyes: PERRL, conjunctivae normal, anicteric sclerae ENMT: external ear and nose normal, oropharynx normal Neck: trachea midline, no thyromegaly Respiratory: normal respiratory effort, lungs clear to auscultation Auscultation: + rales (LLL) Cardiovascular: RRR, no murmur, no edema Rate/Rhythm: regular rate Extremities: + AV fistula (+ bruit) Gastrointestinal (Abdomen): normal bowel sounds, soft, nontender, no hepatosplenomegaly Musculoskeletal: Extremities: no cyanosis Skin: no rashes, warm and dry Neurologic: awake; not confused Results & Data Vital Signs (Past 12 Hours) Vital Signs Temp Pulse Pulse Resp BP BP BP 08/05/19 10:00 76 129/86 08/05/19 09:40 71 163/54 H 08/05/19 09:20 74 146/39 H 08/05/19 09:00 75 132/51 L 08/05/19 08:39 36.7 C 08/05/19 08:00 73 08/05/19 07:12 36.3 C L 74 18 110/61 08/05/19 07:05 36.6 C 74 20 08/05/19 05:17 75 133/76 08/05/19 03:44 36.6 C 77 20 08/05/19 03:39 110/58 L 08/04/19 23:59 76 08/04/19 23:38 37.0 C 79 20 Pulse Ox 08/05/19 10:00 08/05/19 09:40 08/05/19 09:20 08/05/19 09:00 08/05/19 08:39 08/05/19 08:00 08/05/19 07:12 97 08/05/19 07:05 97 08/05/19 05:17 08/05/19 03:44 99 08/05/19 03:39 08/04/19 23:59 08/04/19 23:38 95 Laboratory Results Laboratory Tests 08/05/19 08/05/19 04:56 04:56 WBC 7.10 Hgb 9.3 L Hct 29.0 L Plt Count 160 Sodium 131 L Potassium 5.2 H Chloride 94 L Carbon Dioxide 26 BUN 37 H Creatinine 7.29 H* D Glucose 149 H Phosphorus 8.3 H PG Care Time/CCT Total # of Minutes Spent Total Time Spent with Patient: Total time spent is greater than 50% in coordination of care (as documented) at patient's floor/unit and/or counseling patient: Coding Level of Care Code 99210 Subseq Hosp Care Lvl 3 Diagnoses End-stage renal disease (ESRD) N18.6 Non-ST elevation [place] (NSTEMI) I21.4 Fever R50.9
[2019-08-05] MEDS: HEPARIN SODIUM/DEXTROSE 25,000 UNITS/500 ML BAG IV SCH (10:59)
[2019-08-05] MEDS: OXYCODONE/ACETAMINOPHEN 5mg/325mg TAB PO PRN ×2 (13:13→20:39)
--- NOTE | 2019-08-05 16:39 | Hospitalist Progress Note ---
Date of Service August 05, 2019 Assessment & Plan (1) Non-ST elevation [place] (NSTEMI): 69-year-old female was admitted on 02 August 2019 for chest discomfort, fever, and worsening shortness of breath beginning day prior to admission. NSTEMI: Multiple ST depressions on EKG. Troponin 12.9, trending down. 06Feb echo noted EF 50-55%, normal LVSF and no obvious wall motion abnormalities. 07Feb cardiac cath noted severe multivessel CAD. - On a heparin infusion. Nitropaste q6h scheduled. On ASA, atorvastatin, Plavix, metoprolol. - See cardiology notes. Believed to be high risk for bypass surgery. Plan for PCI on Wednesday to address areas amenable to revascularization. Pneumonia: Recent reported fever, cough, SOB. Admit WBC 7, lactate 2.2 (since improved), nasal MRSA negative. Procal 1.06. CRP 15. Influenza negative. pCXR read as mild left basilar opacity with possible trace effusion. BCx NGTD. - In ED, treated with cefepime and Levaquin. Kept on cefepime to include pseudomonas coverage. Cystitis: Recent reported foul-smelling urine. Admit UA dirty. UCx growing E coli, sensitive to cefepime. End-stage renal disease: Is usually on dialysis MWF weekly. Underwent dialysis today. See nephrology notes. Is also on Procrit. Ongoing medical issues: - Hypertension, hyperlipidemia, peripheral vascular disease: See NSTEMI meds above. - AVNRT, left posterior fascicular block, palpitations, paroxysmal a fib, paroxysmal SVT, right BBB: All prior history of same. Continue home amiodarone. - Chronic diastolic CHF: Continue home Lasix 40 mg twice daily. - Anemia, previous GI bleed, colon cancer: Admit hemoglobin 10.1, similar to the baseline 10s. Stable at 9.3. - Type 2 diabetes: On Lantus and insulin sliding scale. HbA1c 7.6. - Diabetic neuropathy: Continue home pregabalin. - Sleep apnea, morbid obesity: Patient says she stopped using CPAP years ago. - Hypothyroidism: Continue home levothyroxine. - Chronic hyponatremia: Admit sodium 130. - Secondary hyperparathyroidism. Code status: Full code. Diet: Heart healthy, DM2, renal dialysis. DVT prophy: Heparin infusion. PT/OT: Deferred. Disbo: Admitted to PCU telemetry. At baseline lives at home with . (2) Pneumonia: (3) Cystitis: (4) End-stage renal disease (ESRD): (5) Hypertension: (6) Hyperlipidemia: (7) PVD (peripheral vascular disease): (8) AVNRT (AV alondra re-entry tachycardia): (9) Left posterior fascicular block (LPFB): (10) Paroxysmal atrial fibrillation: (11) Paroxysmal supraventricular tachycardia: (12) RBBB (right bundle branch block): (13) Congestive heart failure with LV diastolic dysfunction, NYHA class 3: (14) Anemia: (15) History of colon cancer: (16) Diabetes mellitus type 2 with complications: (17) Diabetic neuropathy: (18) Sleep apnea: (19) Obesity (BMI 30-39.9): (20) Hypothyroidism: (21) Chronic hyponatremia: (22) Secondary hyperparathyroidism (of renal origin): Supervising Physician Co-Signing Physician Notes I personally examined the patient and verified all sierra points of history and exam, discussed case, and agree with decision making with Dr Stearns. feeling better than yesterday. no new complaints. awaiting [facility] wednesday. Vitals noted, in general she is awake and alert pleasant no distress. HEENT normocephalic atraumatic mucous membranes are moist. Breathing unlabored no accessory muscle use good effort. Skin shows no rashes no pallor or icterus. Left lower lobe healthcare associated pneumonia- Continue cefepime. improving. This was likely the physiologic stressor that led to her NSTEMI NSTEMI unfortunately, she has diffuse diseas, agree with cardiology that she would be certainly quite high risk for bypass, continue med management and try to intervene percutaneously as possible - anticiapte this on wednesday. DVT prophylaxiscurrently on heparin drip Otherwise as above Subjective Met with patient earlier this morning and again this afternoon. Patient says that overall she feels a bit tired but does not have any particular complaints. She specifically denies any chest pain. She denies any shortness of breath at rest but does say that her breathing feels better when she sits up compared to lying supine. Overall she says she feels better than yesterday. She notes that her back felt sore after lying on the cardiac cath table and in the dialysis chair, though that seems to be improving. Review of Systems Review of Systems: Per HPI as above. Physical Exam Physical Exam: General Appearance: Awake, alert & oriented, comfortable in general, NAD. CV: +S1S2 RRR, no murmur. Pulm: Diminished breath sounds generalized in all hsieh. No crackles appreciated. On 2 L nasal cannula. Abdomen: +BS, soft, non-tender, non-distended. Extremities: No pedal edema or calf tenderness. History of right BKA. Otherwise moving all extremities naturally and easily. Neuro: No gross neuro deficits. Results & Data ([facility]) Vital Signs (Past 12 Hours) Vital Signs Temp Pulse Pulse Pulse Resp BP BP 08/05/19 16:00 79 08/05/19 15:40 36.9 C 78 18 08/05/19 13:15 36.5 C 70 08/05/19 12:20 76 171/58 H 08/05/19 12:00 72 159/46 H 08/05/19 11:40 74 135/40 L 08/05/19 11:20 76 123/55 L 08/05/19 11:00 72 146/49 H 08/05/19 10:40 73 142/41 H 08/05/19 10:20 70 140/47 L 08/05/19 10:00 76 129/86 08/05/19 09:40 71 163/54 H 08/05/19 09:20 74 146/39 H 08/05/19 09:00 75 132/51 L 08/05/19 08:39 36.7 C 08/05/19 08:00 73 08/05/19 07:12 36.3 C L 74 18 08/05/19 07:05 36.6 C 74 20 08/05/19 05:17 75 133/76 08/05/19 03:44 36.6 C 77 20 08/05/19 03:39 110/58 L 08/04/19 23:59 76 08/04/19 23:38 37.0 C 79 20 08/04/19 19:03 36.8 C 82 19 08/04/19 17:52 80 16 124/70 08/04/19 16:53 78 18 82/43 L BP Pulse Ox 08/05/19 16:00 08/05/19 15:40 106/66 95 08/05/19 13:15 131/58 L 08/05/19 12:20 08/05/19 12:00 08/05/19 11:40 08/05/19 11:20 08/05/19 11:00 08/05/19 10:40 08/05/19 10:20 08/05/19 10:00 08/05/19 09:40 08/05/19 09:20 08/05/19 09:00 08/05/19 08:39 08/05/19 08:00 08/05/19 07:12 110/61 97 08/05/19 07:05 97 08/05/19 05:17 08/05/19 03:44 99 08/05/19 03:39 08/04/19 23:59 08/04/19 23:38 95 08/04/19 19:03 97 08/04/19 17:52 96 08/04/19 16:53 96 Intake and Output 08/05/19 08/05/19 08/05/19 06:59 14:59 22:59 Intake Total 242.15 / 998.417 196.533 / 196.533 Output Total 0 / 0 Balance 242.15 / 998.417 196.533 / 196.533 Intake: IV 242.15 / 618.417 136.533 / 136.533 HEPARIN SODIUM/DEXTROSE 25,000 242.15 / 618.417 136.533 / 136.533 units In 500 ml @ 0 UNITS/HR IV .Q0M [facility] Rx#:[id number] Oral 60 / 60 Output: Urine 0 / 0 Other: Hemodialysis Ultrafiltration 3,800 Amount Weight 110 kg 107.6 kg Patient Weight 08/06/19 06:59 Weight 107.6 kg Laboratory Results 08/05/19 08/05/19 08/05/19 Range/Units 16:27 13:24 07:10 WBC (4.8-10.8) K/uL RBC (4.2-5.4) M/uL Hgb (12.0-16.0) g/dL Hct (37-47) % MCV (80-100) fL MCH (25-34) pg MCHC (32-36) g/dL RDW Std Deviation (36.4-46.3) fL RDW Coeff of Veronica (11.5-14.5) % Plt Count (130-400) K/uL MPV (7.4-10.4) fL PT (9.0-12.0) Seconds INR (0.9-1.1) APTT (21.0-31.0) Seconds PTT Ratio Sodium (136-145) mmol/L Potassium (3.5-5.1) mmol/L Chloride (98-107) mmol/L Carbon Dioxide (21-32) mmol/L Anion Gap (3-11) BUN (7-18) mg/dl Creatinine (0.6-1.2) mg/dl Est Cr Clr Drug Dosing ml/min Est GFR ( Amer) Est GFR (Non-Af Amer) BUN/Creatinine Ratio (10-20) Glucose (70-99) mg/dl POC Glucose 266 H 136 H 185 H (70-99) mg/dl Calcium (8.5-10.1) mg/dl Phosphorus (2.5-4.9) mg/dl Magnesium (1.8-2.4) mg/dl Albumin (3.4-5.0) gm/dl 08/05/19 08/05/19 08/05/19 Range/Units 04:56 04:56 04:56 WBC 7.10 (4.8-10.8) K/uL RBC 2.90 L (4.2-5.4) M/uL Hgb 9.3 L (12.0-16.0) g/dL Hct 29.0 L (37-47) % MCV 100.0 (80-100) fL MCH 32.1 (25-34) pg MCHC 32.1 (32-36) g/dL RDW Std Deviation 67.0 H (36.4-46.3) fL RDW Coeff of Veronica 18.3 H (11.5-14.5) % Plt Count 160 (130-400) K/uL MPV 9.7 (7.4-10.4) fL PT 14.0 H (9.0-12.0) Seconds INR 1.4 H (0.9-1.1) APTT 48.6 H* (21.0-31.0) Seconds PTT Ratio 1.8 Sodium 131 L (136-145) mmol/L Potassium 5.2 H (3.5-5.1) mmol/L Chloride 94 L (98-107) mmol/L Carbon Dioxide 26 (21-32) mmol/L Anion Gap 11.0 (3-11) BUN 37 H (7-18) mg/dl Creatinine 7.29 H* D (0.6-1.2) mg/dl Est Cr Clr Drug Dosing 8.8 ml/min Est GFR ( Amer) 6.0 Est GFR (Non-Af Amer) 5.2 BUN/Creatinine Ratio 5.1 L (10-20) Glucose 149 H (70-99) mg/dl POC Glucose (70-99) mg/dl Calcium 9.0 (8.5-10.1) mg/dl Phosphorus 8.3 H (2.5-4.9) mg/dl Magnesium 2.4 (1.8-2.4) mg/dl Albumin 2.4 L (3.4-5.0) gm/dl 08/04/19 08/04/19 Range/Units 20:33 20:17 WBC (4.8-10.8) K/uL RBC (4.2-5.4) M/uL Hgb (12.0-16.0) g/dL Hct (37-47) % MCV (80-100) fL MCH (25-34) pg MCHC (32-36) g/dL RDW Std Deviation (36.4-46.3) fL RDW Coeff of Veronica (11.5-14.5) % Plt Count (130-400) K/uL MPV (7.4-10.4) fL PT (9.0-12.0) Seconds INR (0.9-1.1) APTT 29.7 (21.0-31.0) Seconds PTT Ratio 1.1 Sodium (136-145) mmol/L Potassium (3.5-5.1) mmol/L Chloride (98-107) mmol/L Carbon Dioxide (21-32) mmol/L Anion Gap (3-11) BUN (7-18) mg/dl Creatinine (0.6-1.2) mg/dl Est Cr Clr Drug Dosing ml/min Est GFR ( Amer) Est GFR (Non-Af Amer) BUN/Creatinine Ratio (10-20) Glucose (70-99) mg/dl POC Glucose 218 H (70-99) mg/dl Calcium (8.5-10.1) mg/dl Phosphorus (2.5-4.9) mg/dl Magnesium (1.8-2.4) mg/dl Albumin (3.4-5.0) gm/dl Medications Administered Current Inpatient Medications Acetaminophen (Tylenol) 650 mg PO Q4H PRN PRN Reason: Pain or Fever Stop: 09/01/19 23:13 Amiodarone HCl (Cordarone) 200 mg PO BID ALEX Stop: 09/01/19 23:13 Last Admin: 08/05/19 07:49 Dose: 200 mg Documented by: Aspirin (Ecotrin Ectab) 81 mg PO HS [facility] Stop: 09/02/19 20:59 Last Admin: 08/04/19 20:17 Dose: 81 mg Documented by: Atorvastatin Calcium (Lipitor) 40 mg PO QAM [facility]LEX Stop: 09/02/19 08:59 Last Admin: 08/05/19 07:45 Dose: 40 mg Documented by: Clopidogrel Bisulfate (Plavix) 75 mg PO DAILY ALEX Stop: 09/02/19 08:59 Last Admin: 08/05/19 07:45 Dose: 75 mg Documented by: Dextrose (Dextrose 50%) 25 - 50 ml IV UD PRN; Protocol PRN Reason: Hypoglycemia Protocol Stop: 09/01/19 23:13 Fish Oil ([place]-3 (Purified Fish Oil)) 1 gm PO DAILY ALEX Stop: 09/02/19 08:59 Last Admin: 08/05/19 07:46 Dose: 1 gm Documented by: Furosemide (Lasix) 40 mg PO BID ALEX Stop: 09/01/19 23:13 Last Admin: 08/05/19 07:48 Dose: 40 mg Documented by: Glucagon (Glucagen) 1 mg SQ UD PRN; Protocol PRN Reason: Hypoglycemia Protocol Stop: 09/01/19 23:13 Glucose (Dex4 Glucose) 4 - 8 tabs PO UD PRN; Protocol PRN Reason: Hypoglycemia Protocol Stop: 09/01/19 23:13 Glucose (Glucose 40%) 15 - 30 gm PO UD PRN; Protocol PRN Reason: Hypoglycemia Protocol Stop: 09/01/19 23:13 Heparin Sodium/Dextrose (Heparin Sodium/Dextrose) 25,000 units in 500 mls @ 0 mls/hr IV .Q0M [facility]; Protocol Stop: 09/01/19 19:59 Last Admin: 08/05/19 10:59 Dose: 1,450 units/hr, 29 mls/hr Documented by: Cefepime HCl 1,000 mg/ Syringe 11.3 mls @ 5.5 mls/min IV Q24H [facility]; Protocol Stop: 08/09/19 21:03 Last Admin: 08/04/19 20:22 Dose: 5.5 mls/min Documented by: Insulin Aspart (Novolog Flexpen) 0 units SC ACHS [facility] Stop: 09/02/19 07:29 Last Admin: 08/05/19 13:49 Dose: 8 units Documented by: Insulin Glargine (Lantus Solostar Pen) 20 units SQ QAM [facility] Stop: 09/02/19 08:59 Last Admin: 08/05/19 07:49 Dose: 20 units Documented by: Latanoprost (Xalatan Oph) 1 drops OPB HS [facility] Stop: 09/02/19 20:59 Last Admin: 08/04/19 20:17 Dose: 1 drops Documented by: Levothyroxine Sodium (Synthroid) 50 mcg PO DAILYBB [facility] Stop: 09/02/19 06:29 Last Admin: 08/05/19 05:19 Dose: 50 mcg Documented by: Metoprolol Tartrate (Lopressor) 50 mg PO Q8 [facility] Stop: 09/01/19 23:13 Last Admin: 08/05/19 07:46 Dose: 50 mg Documented by: Miscellaneous (Order Awaiting Action) 1 ea N/A QS [facility] Stop: 09/02/19 07:59 Last Admin: 08/05/19 10:51 Dose: Not Given Documented by: Miscellaneous (Carbohydrates For Hypoglycemia) 15 - 30 gm PO UD PRN PRN Reason: Hypoglycemia Protocol Stop: 09/01/19 23:13 Miscellaneous Information (Cefepime Consult Active) 1 ea N/A UD PRN PRN Reason: Consult Stop: 09/02/19 00:32 Nitroglycerin (Nitro-Bid 2%) 1 inch EXT Q6H [facility] Stop: 09/02/19 05:59 Last Admin: 08/05/19 13:14 Dose: 1 inch Documented by: Ondansetron HCl (Zofran) 4 mg IV Q6H PRN PRN Reason: Nausea Stop: 09/01/19 23:13 Last Admin: 08/02/19 23:40 Dose: 4 mg Documented by: Oxycodone/Acetaminophen (Percocet 5mg/325mg) 1 tab PO DAILY PRN PRN Reason: Severe Pain Stop: 08/16/19 23:13 Last Admin: 08/05/19 13:13 Dose: 1 tab Documented by: Pregabalin (Lyrica) 25 mg PO BID [facility]LEX Stop: 09/01/19 23:13 Last Admin: 08/05/19 08:08 Dose: 25 mg Documented by: Resident Activity Tracking Resident Involvement: Resident Care Provided Care Provided: Adult [facility] (1) Diabetic neuropathy Diabetes mellitus complication detail: diabetic polyneuropathy Diabetes mellitus type: type 2 Qualified Code(s): E11.42 - Type 2 diabetes mellitus with diabetic polyneuropathy (2) Sleep apnea Sleep apnea type: obstructive Qualified Code(s): G47.33 - Obstructive sleep apnea (adult) (pediatric) (3) Anemia Anemia type: due to chronic kidney disease Chronic kidney disease stage: on chronic dialysis Qualified Code(s): N18.6 - End stage renal disease; D63.1 - Anemia in chronic kidney disease; Z99.2 - Dependence on renal dialysis (4) Hyperlipidemia Hyperlipidemia type: mixed hyperlipidemia Qualified Code(s): E78.2 - Mixed hyperlipidemia (5) Hypothyroidism Hypothyroidism type: acquired Qualified Code(s): E03.9 - Hypothyroidism, unspecified (6) Hypertension Hypertension type: essential hypertension Qualified Code(s): I10 - Essential (primary) hypertension
--- NOTE | 2019-08-05 17:07 | Billing Data ---
Date of Service August 05, 2019 Coding Level of Care Code 50340 Subseq Hosp Care Lvl 2
[2019-08-05] MEDS: ASPIRIN 81 MG ECTAB PO SCH (20:38)
[2019-08-05] MEDS: LATANOPROST 0.005% OP SOLN 2.5 ML BTL OPB SCH (20:38)
[2019-08-05] MEDS: CEFEPIME 1,000 MG in SYRINGE 0 ML IV SCH (20:39)
[2019-08-06] MEDS: NITROGLYCERIN 2% OINTMENT 30GM TUBE EXT SCH ×4 (01:27→18:43)
[2019-08-06] MEDS: HEPARIN SODIUM/DEXTROSE 25,000 UNITS/500 ML BAG IV SCH ×2 (03:38→15:23)
[2019-08-06] MEDS: LEVOTHYROXINE SODIUM 50 MCG TABLET PO SCH (05:04)
[2019-08-06] MEDS: METOPROLOL TARTRATE 50 MG TAB PO SCH ×3 (05:04→21:42)
[2019-08-06 07:06] LABS: Hematocrit (blood only) 28.1 % (37-47); Mean Corpuscular Hemoglobin 31.9 pg (25-34); Mean Corpuscular Volume 99.6 fL (80-100); Mean Platelet Volume 9.9 fL (7.4-10.4); Nucleated RBC # (auto) 0.04 K/uL (0-0); Nucleated RBC % (auto) 0.5 %; Platelet Count 181 K/uL (130-400); RDW Coefficient of Variation 18.6 % (11.5-14.5); RDW Standard Deviation 67.7 fL (36.4-46.3); Red Blood Count 2.82 M/uL (4.2-5.4); White Blood Count 6.81 K/uL (4.8-10.8)
[2019-08-06 07:16] LABS: Partial Thromboplastin Ratio 1.6; Partial Thromboplastin Time 43.9 Seconds (21.0-31.0)
[2019-08-06 08:06] LABS: BUN Creatinine Ratio 4.2 (10-20); Calcium 8.7 mg/dl (8.5-10.1); Est GFR (African American) 8.7; Est GFR (Non-African American) 7.5; Potassium 4.3 mmol/L (3.5-5.1)
[2019-08-06] MEDS: INSULIN ASPART 100 UNITS/ML 3 ML PEN SC SCH ×4 (08:07→21:40)
[2019-08-06] MEDS: AMIODARONE 200 MG TAB PO SCH ×2 (08:09→19:57)
[2019-08-06] MEDS: OMEGA-3 (PURIFIED FISH OIL) 1 GM CAP PO SCH (08:10)
[2019-08-06] MEDS: ATORVASTATIN 40 MG TAB PO SCH (08:11)
[2019-08-06] MEDS: FUROSEMIDE 40 MG TAB PO SCH ×2 (08:11→19:55)
[2019-08-06] MEDS: CLOPIDOGREL BISULFATE 75 MG TAB PO SCH (08:11)
[2019-08-06] MEDS: INSULIN GLARGINE SOLOSTAR 100 UNITS/ML 3 ML PEN SQ SCH (08:12)
[2019-08-06] MEDS: PREGABALIN 25 MG CAP PO SCH ×2 (08:17→19:57)
[2019-08-06] MEDS ORDERED: HEPARIN IV BOLUS 3,000 UNITS in SYRINGE 0 ML IV ONE (09:30)
--- NOTE | 2019-08-06 11:37 | Nephrology Progress Note ---
Date of Service August 06, 2019 Assessment & Plan (1) End-stage renal disease (ESRD): -- Volume status and electrolyte balance are acceptable at this time. Will schedule next HD for am prior to procedure. Will attempt 3 L UF w/ HD tomorrow (2) Non-ST elevation [place] (NSTEMI): -- PCI scheduled for Wednesday afternoon. Will schedule next HD for Wednesday am in preparation for procedure (3) Fever: -- Defervesced. On empiric Cefipime. Urine culture + for pansensitive E. Coli Subjective Mrs. Bennett was seen & examined in her hospital room this morning. She was last dialyzed yesterday for 3.8 L volume removal. She currently denies dyspnea or angina. Review of Systems Constitutional: + weakness; no fever Eyes: no worsening vision and no problem reported Ear, Nose, Mouth, Throat: no problem reported Respiratory: no cough and no dyspnea Cardiovascular: no chest pain, no palpitations and no edema Gastrointestinal: no abdominal pain, no nausea, no vomiting and no diarrhea/loose stools Genitourinary: no dysuria and no hematuria Musculoskeletal: no back pain Integumentary: no rash Neurologic: no falls, no dizziness and no confusion Physical Exam Constitutional: + ill appearing; not in distress Eyes: PERRL, conjunctivae normal, anicteric sclerae ENMT: external ear and nose normal, oropharynx normal Neck: trachea midline, no thyromegaly Respiratory: normal respiratory effort, lungs clear to auscultation Auscultation: + rales (LLL) Cardiovascular: RRR, no murmur, no edema Rate/Rhythm: regular rate Extremities: + AV fistula (+ bruit) Gastrointestinal (Abdomen): normal bowel sounds, soft, nontender, no hepatosplenomegaly Musculoskeletal: Extremities: no cyanosis Skin: no rashes, warm and dry Neurologic: awake; not confused Results & Data Vital Signs (Past 12 Hours) Vital Signs Temp Pulse Pulse Pulse Resp BP BP 08/06/19 08:00 74 08/06/19 07:25 36.7 C 75 18 96/43 L 08/06/19 03:24 36.6 C 79 18 118/70 08/06/19 00:11 36.8 C 79 18 100/41 L 08/05/19 23:38 77 Pulse Ox 08/06/19 08:00 08/06/19 07:25 97 08/06/19 03:24 97 08/06/19 00:11 94 08/05/19 23:38 Laboratory Results Laboratory Tests 08/06/19 08/06/19 06:52 06:52 WBC 6.81 Hgb 9.0 L Hct 28.1 L Plt Count 181 Sodium 131 L Potassium 4.3 D Chloride 96 L Carbon Dioxide 25 BUN 23 H Creatinine 5.35 H* D Glucose 178 H PG Care Time/CCT Total # of Minutes Spent Total Time Spent with Patient: Total time spent is greater than 50% in coordination of care (as documented) at patient's floor/unit and/or counseling patient: Coding Level of Care Code 78802 Subseq Hosp Care Lvl 3 Diagnoses End-stage renal disease (ESRD) N18.6 Non-ST elevation [place] (NSTEMI) I21.4 Fever R50.9
--- NOTE | 2019-08-06 13:45 | Hospitalist Progress Note ---
Date of Service August 06, 2019 Assessment & Plan (1) Non-ST elevation [place] (NSTEMI): 69-year-old female was admitted on 02 August 2019 for chest discomfort, fever, and worsening shortness of breath beginning day prior to admission. NSTEMI: Multiple ST depressions on EKG. Troponin 12.9, trended down. echo noted EF 50-55%, normal LVSF and no obvious wall motion abnormalities. b cardiac cath noted severe multivessel CAD. - On a heparin infusion. Nitropaste q6h scheduled. On ASA, atorvastatin, Plavix, metoprolol. - See cardiology notes. Believed to be high risk for bypass surgery. Plan for PCI on Wednesday to address areas amenable to revascularization. Pneumonia: Recent reported fever, cough, SOB. Admit WBC 7, lactate 2.2 (since improved), nasal MRSA negative. Procal 1.06. CRP 15. Influenza negative. pCXR read as mild left basilar opacity with possible trace effusion. BCx NGTD. - In ED, treated with cefepime and Levaquin. Admitted on cefepime, changed on to Augmentin. Cystitis: Recent reported foul-smelling urine. UCx growing E coli, sensitive to cefepime (and likely Augmentin). End-stage renal disease: Is usually on dialysis MWF weekly, most recently . See nephrology notes. Is also on Procrit. Ongoing medical issues: - Hypertension, hyperlipidemia, peripheral vascular disease: See NSTEMI meds above. - AVNRT, left posterior fascicular block, palpitations, paroxysmal a fib, paroxysmal SVT, right BBB: All prior history of same. Continue home amiodarone. - Chronic diastolic CHF: Continue home Lasix 40 mg twice daily. - Anemia, previous GI bleed, colon cancer: Admit hemoglobin 10.1, similar to the baseline 10s. Stable around 9. - Type 2 diabetes: On Lantus and insulin sliding scale. HbA1c 7.6. - Diabetic neuropathy: Continue home pregabalin. - Sleep apnea, morbid obesity: Patient says she stopped using CPAP years ago. - Hypothyroidism: Continue home levothyroxine. - Chronic hyponatremia: Admit sodium 130. - Secondary hyperparathyroidism. Code status: Full code. Diet: Heart healthy, DM2, renal dialysis. NPO at midnight. DVT prophy: Heparin infusion. PT/OT: Ordered. Patient and have concerns about mobility s/p prior hospital discharges. Wonder if brief rehab would help. Disbo: Admitted to PCU telemetry. At baseline lives at home with . (2) Pneumonia: (3) Cystitis: (4) End-stage renal disease (ESRD): (5) Hypertension: (6) Hyperlipidemia: (7) PVD (peripheral vascular disease): (8) AVNRT (AV alondra re-entry tachycardia): (9) Left posterior fascicular block (LPFB): (10) Paroxysmal atrial fibrillation: (11) Paroxysmal supraventricular tachycardia: (12) RBBB (right bundle branch block): (13) Congestive heart failure with LV diastolic dysfunction, NYHA class 3: (14) Anemia: (15) History of colon cancer: (16) Diabetes mellitus type 2 with complications: (17) Diabetic neuropathy: (18) Sleep apnea: (19) Obesity (BMI 30-39.9): (20) Hypothyroidism: (21) Chronic hyponatremia: (22) Secondary hyperparathyroidism (of renal origin): Supervising Physician Co-Signing Physician Notes I personally examined the patient and verified all sierra points of history and exam, discussed case, and agree with decision making with Dr Stearns. continues to feel OK. Vitals noted, in general she is awake and alert pleasant no distress. HEENT normocephalic atraumatic mucous membranes are moist. Breathing unlabored no accessory muscle use good effort. Skin shows no rashes no pallor or icterus. Left lower lobe healthcare associated pneumonia- improving nicely, trial transition to augmentin and follow - can always resume cefepime if worsens but seems unlikely that she will. This was likely the physiologic stressor that led to her NSTEMI NSTEMI unfortunately, she has diffuse disease, agree with cardiology that she would be certainly quite high risk for bypass, continue med management and try to intervene percutaneously as possible - cath again tomorrow. DVT prophylaxiscurrently on heparin drip Otherwise as above Subjective Met with patient earlier this morning. Overall she says that she feels great. She says that her back pain feels resolved. She denies any chest pain or overt shortness of breath. Still says she gets little SOB when lying supine. Overall has no immediate concerns. Review of Systems Review of Systems: Per HPI as above. Physical Exam Physical Exam: General Appearance: Awake, alert & oriented, comfortable in general, NAD. CV: +S1S2 RRR, no murmur. Pulm: Diminished breath sounds generalized in all hsieh. No crackles appreciated. On 2 L nasal cannula. Abdomen: +BS, soft, non-tender, non-distended. Extremities: No pedal edema or calf tenderness. 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 Otherwise moving all extremities naturally and easily. Neuro: No gross neuro deficits. Results & Data ([facility]) Vital Signs (Past 12 Hours) Vital Signs Temp Pulse Pulse Pulse Resp BP BP 08/06/19 11:23 36.5 C 75 18 110/47 L 08/06/19 08:00 74 08/06/19 07:25 36.7 C 75 18 96/43 L 08/06/19 03:24 36.6 C 79 18 118/70 Pulse Ox 08/06/19 11:23 95 08/06/19 08:00 08/06/19 07:25 97 08/06/19 03:24 97 Laboratory Results 08/06/19 08/06/19 08/06/19 Range/Units 11:44 07:13 06:52 WBC (4.8-10.8) K/uL RBC (4.2-5.4) M/uL Hgb (12.0-16.0) g/dL Hct (37-47) % MCV (80-100) fL MCH (25-34) pg MCHC (32-36) g/dL RDW Std Deviation (36.4-46.3) fL RDW Coeff of Veronica (11.5-14.5) % Plt Count (130-400) K/uL MPV (7.4-10.4) fL Absolute Nucleated RBC (0-0) K/uL Nucleated RBC % (auto) % APTT 43.9 H (21.0-31.0) Seconds PTT Ratio 1.6 Sodium (136-145) mmol/L Potassium (3.5-5.1) mmol/L Chloride (98-107) mmol/L Carbon Dioxide (21-32) mmol/L Anion Gap (3-11) BUN (7-18) mg/dl Creatinine (0.6-1.2) mg/dl Est Cr Clr Drug Dosing ml/min Est GFR ( Amer) Est GFR (Non-Af Amer) BUN/Creatinine Ratio (10-20) Glucose (70-99) mg/dl POC Glucose 289 H 189 H (70-99) mg/dl Calcium (8.5-10.1) mg/dl 08/06/19 08/06/19 08/05/19 Range/Units 06:52 06:52 20:21 WBC 6.81 (4.8-10.8) K/uL RBC 2.82 L (4.2-5.4) M/uL Hgb 9.0 L (12.0-16.0) g/dL Hct 28.1 L (37-47) % MCV 99.6 (80-100) fL MCH 31.9 (25-34) pg MCHC 32.0 (32-36) g/dL RDW Std Deviation 67.7 H (36.4-46.3) fL RDW Coeff of Veronica 18.6 H (11.5-14.5) % Plt Count 181 (130-400) K/uL MPV 9.9 (7.4-10.4) fL Absolute Nucleated RBC 0.04 H (0-0) K/uL Nucleated RBC % (auto) 0.5 % APTT (21.0-31.0) Seconds PTT Ratio Sodium 131 L (136-145) mmol/L Potassium 4.3 D (3.5-5.1) mmol/L Chloride 96 L (98-107) mmol/L Carbon Dioxide 25 (21-32) mmol/L Anion Gap 10.0 (3-11) BUN 23 H (7-18) mg/dl Creatinine 5.35 H* D (0.6-1.2) mg/dl Est Cr Clr Drug Dosing 12.0 ml/min Est GFR ( Amer) 8.7 Est GFR (Non-Af Amer) 7.5 BUN/Creatinine Ratio 4.2 L (10-20) Glucose 178 H (70-99) mg/dl POC Glucose 232 H (70-99) mg/dl Calcium 8.7 (8.5-10.1) mg/dl 08/05/19 Range/Units 16:27 WBC (4.8-10.8) K/uL RBC (4.2-5.4) M/uL Hgb (12.0-16.0) g/dL Hct (37-47) % MCV (80-100) fL MCH (25-34) pg MCHC (32-36) g/dL RDW Std Deviation (36.4-46.3) fL RDW Coeff of Veronica (11.5-14.5) % Plt Count (130-400) K/uL MPV (7.4-10.4) fL Absolute Nucleated RBC (0-0) K/uL Nucleated RBC % (auto) % APTT (21.0-31.0) Seconds PTT Ratio Sodium (136-145) mmol/L Potassium (3.5-5.1) mmol/L Chloride (98-107) mmol/L Carbon Dioxide (21-32) mmol/L Anion Gap (3-11) BUN (7-18) mg/dl Creatinine (0.6-1.2) mg/dl Est Cr Clr Drug Dosing ml/min Est GFR ( Amer) Est GFR (Non-Af Amer) BUN/Creatinine Ratio (10-20) Glucose (70-99) mg/dl POC Glucose 266 H (70-99) mg/dl Calcium (8.5-10.1) mg/dl Medications Administered Current Inpatient Medications Acetaminophen (Tylenol) 650 mg PO Q4H PRN PRN Reason: Pain or Fever Stop: 09/01/19 23:13 Amiodarone HCl (Cordarone) 200 mg PO BID [facility] Stop: 09/01/19 23:13 Last Admin: 08/06/19 08:09 Dose: 200 mg Documented by: Amoxicillin/Clavulanate Potassium (Augmentin 500mg) 1 tab PO QDD [facility]; Protocol Stop: 08/13/19 16:29 Aspirin (Ecotrin Ectab) 81 mg PO HS [facility] Stop: 09/02/19 20:59 Last Admin: 08/05/19 20:38 Dose: 81 mg Documented by: Atorvastatin Calcium (Lipitor) 40 mg PO QAM [facility] Stop: 09/02/19 08:59 Last Admin: 08/06/19 08:11 Dose: 40 mg Documented by: Clopidogrel Bisulfate (Plavix) 75 mg PO DAILY [facility] Stop: 09/02/19 08:59 Last Admin: 02/09/20 08:11 Dose: 75 mg Documented by: Dextrose (Dextrose 50%) 25 - 50 ml IV UD PRN; Protocol PRN Reason: Hypoglycemia Protocol Stop: 09/01/19 23:13 Epoetin Jan (Procrit) 10,000 units IV ONE ONE Stop: 08/07/19 07:01 Fish Oil (Pinch-3 (Purified Fish Oil)) 1 gm PO DAILY [facility] Stop: 09/02/19 08:59 Last Admin: 08/06/19 08:10 Dose: 1 gm Documented by: Furosemide (Lasix) 40 mg PO BID [facility] Stop: 09/01/19 23:13 Last Admin: 08/06/19 08:11 Dose: 40 mg Documented by: Glucagon (Glucagen) 1 mg SQ UD PRN; Protocol PRN Reason: Hypoglycemia Protocol Stop: 09/01/19 23:13 Glucose (Dex4 Glucose) 4 - 8 tabs PO UD PRN; Protocol PRN Reason: Hypoglycemia Protocol Stop: 09/01/19 23:13 Glucose (Glucose 40%) 15 - 30 gm PO UD PRN; Protocol PRN Reason: Hypoglycemia Protocol Stop: 09/01/19 23:13 Heparin Sodium/Dextrose (Heparin Sodium/Dextrose) 25,000 units in 500 mls @ 32 mls/hr IV .[id number] [facility]; Protocol Stop: 09/01/19 19:59 Last Titration: 08/06/19 09:15 Dose: 1,600 units/hr, 32 mls/hr Documented by: Sodium Chloride (Nss 1000ml) 1,000 mls @ 0 mls/hr IV .Q0M PRN PRN Reason: For Hemodialysis Use ONLY Stop: 08/07/19 12:59 Insulin Aspart (Novolog Flexpen) 0 units SC ACHS [facility] Stop: 09/02/19 07:29 Last Admin: 08/06/19 12:22 Dose: 14 units Documented by: Insulin Glargine (Lantus Solostar Pen) 24 units SQ QAM [facility] Stop: 09/05/19 08:59 Last Admin: 08/06/19 08:12 Dose: 24 units Documented by: Latanoprost (Xalatan Oph) 1 drops OPB HS [facility] Stop: 09/02/19 20:59 Last Admin: 08/05/19 20:38 Dose: 1 drops Documented by: [facility]ine [facility]: 09/02/19 06:29 Last Admin: 08/06/19 05:04 Dose: 50 mcg Documented by: Metoprolol Tartrate (Lopressor) 50 mg PO Q8 [facility] Stop: 09/01/19 23:13 Last Admin: 08/06/19 08:10 Dose: 50 mg Documented by: Kavyaaneous (Order Awaiting Action) 1 ea N/A QS [facility] Stop: 09/02/19 07:59 Last Admin: 08/06/19 08:14 Dose: Not Given Documented by: Magnoliacellaneous (Carbohydrates For Hypoglycemia) 15 - 30 gm PO UD PRN PRN Reason: Hypoglycemia Protocol Stop: 09/01/19 23:13 Nitroglycerin (Nitro-Bid 2%) 1 inch EXT Q6H [facility] Stop: 09/02/19 05:59 Last Admin: 08/06/19 12:21 Dose: 1 inch Documented by: Ondansetron HCl (Zofran) 4 mg IV Q6H PRN PRN Reason: Nausea Stop: 09/01/19 23:13 Last Admin: 08/02/19 23:40 Dose: 4 mg Documented by: Oxycodone/Acetaminophen (Percocet 5mg/325mg) 1 tab PO DAILY PRN PRN Reason: Severe Pain Stop: 08/16/19 23:13 Last Admin: 08/05/19 20:39 Dose: 1 tab Documented by: Pregabalin (Lyrica) 25 mg PO BID [facility] Stop: 09/01/19 23:13 Last Admin: 08/06/19 08:17 Dose: 25 mg Documented by: Resident Activity Tracking Resident Involvement: Resident Care Provided Care Provided: Adult Hospital Medicine (1) Diabetic neuropathy Diabetes mellitus complication detail: diabetic polyneuropathy Diabetes mellitus type: type 2 Qualified Code(s): E11.42 - Type 2 diabetes mellitus with diabetic polyneuropathy (2) Sleep apnea Sleep apnea type: obstructive Qualified Code(s): G47.33 - Obstructive sleep apnea (adult) (pediatric) (3) Anemia Anemia type: due to chronic kidney disease Chronic kidney disease stage: on chronic dialysis Qualified Code(s): N18.6 - End stage renal disease; D63.1 - Anemia in chronic kidney disease; Z99.2 - Dependence on renal dialysis (4) Hyperlipidemia Hyperlipidemia type: mixed hyperlipidemia Qualified Code(s): E78.2 - Mixed hyperlipidemia (5) Hypothyroidism Hypothyroidism type: acquired Qualified Code(s): E03.9 - Hypothyroidism, unspecified (6) Hypertension Hypertension type: essential hypertension Qualified Code(s): I10 - Essential (primary) hypertension
--- NOTE | 2019-08-06 14:04 | Billing Data ---
Date of Service August 06, 2019 Coding Level of Care Code 51788 Subseq Hosp Care Lvl 3
[2019-08-06 15:26] LABS: Partial Thromboplastin Ratio > 5.1
[2019-08-06 15:35] LABS: Partial Thromboplastin Time > 139.0 Seconds (21.0-31.0)
[2019-08-06] MEDS: AMOXICILLIN/CLAVULANATE 500 MG TAB PO SCH (17:32)
[2019-08-06] MEDS: OXYCODONE/ACETAMINOPHEN 5mg/325mg TAB PO PRN (19:55)
[2019-08-06] MEDS: LATANOPROST 0.005% OP SOLN 2.5 ML BTL OPB SCH (19:57)
[2019-08-06] MEDS: ASPIRIN 81 MG ECTAB PO SCH (19:57)
[2019-08-06 21:15] LABS: Partial Thromboplastin Ratio 1.1; Partial Thromboplastin Time 29.4 Seconds (21.0-31.0)
[2019-08-07] MEDS: NITROGLYCERIN 2% OINTMENT 30GM TUBE EXT SCH ×5 (01:13→23:39)
[2019-08-07] MEDS: HEPARIN SODIUM/DEXTROSE 25,000 UNITS/500 ML BAG IV SCH ×2 (02:51→04:14)
[2019-08-07 04:07] LABS: Partial Thromboplastin Ratio 3.3
[2019-08-07 04:09] LABS: Partial Thromboplastin Time 90.5 Seconds (21.0-31.0)
[2019-08-07] MEDS: LEVOTHYROXINE SODIUM 50 MCG TABLET PO SCH (05:32)
[2019-08-07] MEDS: METOPROLOL TARTRATE 50 MG TAB PO SCH ×3 (05:32→21:33)
[2019-08-07 06:51] LABS: Hematocrit (blood only) 25.5 % (37-47); Hemoglobin 8.7 g/dL (12.0-16.0); Mean Corpuscular Hemoglobin 32.5 pg (25-34); Mean Corpuscular Hgb Conc 34.1 g/dL (32-36); Mean Corpuscular Volume 95.1 fL (80-100); Mean Platelet Volume 9.7 fL (7.4-10.4); Nucleated RBC # (auto) 0.04 K/uL (0-0); Nucleated RBC % (auto) 0.6 %; Platelet Count 200 K/uL (130-400); RDW Coefficient of Variation 18.2 % (11.5-14.5); RDW Standard Deviation 63.4 fL (36.4-46.3); Red Blood Count 2.68 M/uL (4.2-5.4); White Blood Count 6.81 K/uL (4.8-10.8)
[2019-08-07] MEDS ORDERED: SODIUM CHLORIDE 0.9% 1000ML 1,000 ML IV PRN (07:00)
[2019-08-07] MEDS ORDERED: EPOETIN ALFA 10,000 UNITS/ML VIAL IV ONE (07:00)
[2019-08-07 07:30] LABS: BUN Creatinine Ratio 4.6 (10-20); Calcium 8.8 mg/dl (8.5-10.1); Creatinine Clr Calc Pharmacy 9.5 ml/min; Est GFR (African American) 6.6; Est GFR (Non-African American) 5.7; Magnesium 2.1 mg/dl (1.8-2.4); Phosphorus 8.8 mg/dl (2.5-4.9); Potassium 4.4 mmol/L (3.5-5.1)
[2019-08-07] MEDS: INSULIN ASPART 100 UNITS/ML 3 ML PEN SC SCH ×4 (08:44→21:33)
[2019-08-07] MEDS: INSULIN GLARGINE SOLOSTAR 100 UNITS/ML 3 ML PEN SQ SCH (08:45)
--- NOTE | 2019-08-07 10:41 | Hospitalist Progress Note ---
Date of Service August 07, 2019 Assessment & Plan (1) Non-ST elevation GA (NSTEMI): 69-year-old female with PMHx significant for DMII, ESRD on dialysis MWF, diastolic CHF, HTN, HLD who was admitted with NSTEMI and LLL pneumonia. Repeat PCI today 08/07.. NSTEMI -Pt presented with left shoulder pain, noted ST depressions in anterolateral leads, ST elevations in V2 and aVR -Troponin 12.9 on admission, trended down to 9.19 on Aug 03. -Echo noted no systolic dysfunction or wall motion abnormalities -cardiac cath 08/04/2019 with 95% LAD, 100% circumflex and 95% distal RCA occlusion. Repeat PCI 08/07/2019 for LAD and RCA revascularization, high risk candidate for bypass surgery. -continue heparin drip, scheduled nitropaste, ASA, atorvastatin 40mg daily, Plavix 75mg daily and metoprolol tartrate 100mg BID -continue home amiodarone (see below) Pneumonia: -Pt reported fever, cough, SOB on admission -chest XR with LLL basilar opacity vs. atelectasis -WBC not increased, flu negative. -Lactate 2.2 on admission, downtrended, procal 1.06 -Blood Cx-NGTD -Initially given Cefepime, levaquin and Vancomycin. -Currently being treated with po Augmentin-Day 6 of abx treatment Cystitis: -Pt reported foul-smelling urine. -UCx growing E coli, pansensitive ESRD -Is usually on dialysis MWF weekly - most recently Aug 07 -Continue Procrit. Chronic: - Hypertension, hyperlipidemia, peripheral vascular disease: See NSTEMI meds above. - AVNRT, left posterior fascicular block, palpitations, paroxysmal a fib, paroxysmal SVT, right BBB: Continue home amiodarone. - Chronic diastolic CHF: Continue home Lasix 40 mg twice daily. - Anemia, previous GI bleed, colon cancer: Admit hemoglobin 10.1, similar to the baseline 10s. Stable around 8.7 today. - Type 2 diabetes: On Lantus and insulin sliding scale. HbA1c 7.6. - Diabetic neuropathy: Continue home pregabalin. - Sleep apnea, morbid obesity: Patient says she stopped using CPAP years ago. - Hypothyroidism: Continue home levothyroxine. - Chronic hyponatremia: Admit sodium 130, currently 129. Code status: Full code. FEN/GI: Heart healthy, DM2, renal dialysis. DVT prophy: Heparin infusion. PT/OT: Ordered, appreciate recs Dispo: Admitted to PCU telemetry. At baseline lives at home with . (2) Pneumonia: (3) Cystitis: (4) End-stage renal disease (ESRD): (5) Hypertension: (6) Hyperlipidemia: (7) PVD (peripheral vascular disease): (8) AVNRT (AV alondra re-entry tachycardia): (9) Left posterior fascicular block (LPFB): (10) Paroxysmal atrial fibrillation: (11) Paroxysmal supraventricular tachycardia: (12) RBBB (right bundle branch block): (13) Congestive heart failure with LV diastolic dysfunction, NYHA class 3: (14) Anemia: (15) History of colon cancer: (16) Diabetes mellitus type 2 with complications: (17) Diabetic neuropathy: (18) Sleep apnea: (19) Obesity (BMI 30-39.9): (20) Hypothyroidism: (21) Chronic hyponatremia: (22) Secondary hyperparathyroidism (of renal origin): Admission and Anticipated Discharge Date Admission Date: August 02, 2019 Supervising Physician Co-Signing Physician Notes Resident Physician Supervision Note: I independently interviewed and examined the patient and verified the [place] and physical, reviewed labs and image studies, discussed the case with the resident Dr. Guzman and agree with the findings and care plan. Subjective Pt seen this AM. Was receiving dialysis. Denies any chest pain, left shoulder pain, SOB or palpitations. Denies any headaches, changes to vision, N/V, abd pain, diarrhea or constipation. Review of Systems Review of Systems: All systems reviewed & are unremarkable except as noted in Subjective Physical Exam Physical Exam: General: Alert, oriented. No acute distress, receiving dialysis in bed Skin: No noted rashes or bruises Psych: Appropriate mood and affect Neuro: No gross deficits HEENT: NC/AT Chest: Nontender to palpation. CV: RRR, Normal s1, s2. No murmurs appreciated Resp: Breath sounds clear bilaterally on front, no increased effort of breathing. No crackles/rhonchi/rales. Abdomen: Soft, nontender, nondistended. No guarding. No organomegaly appreciated. Extremities: BKA on right lower extremity. No edema in left extremity. Results & Data ([facility]) Vital Signs (Past 12 Hours) Vital Signs Temp Pulse Pulse Resp BP BP Pulse Ox 08/07/19 10:20 68 112/56 L 08/07/19 10:00 68 118/55 L 08/07/19 09:40 69 120/60 08/07/19 09:20 73 125/65 08/07/19 09:00 73 125/65 08/07/19 08:40 72 125/67 08/07/19 08:21 36.6 C 72 08/07/19 08:00 74 08/07/19 07:06 36.5 C 72 19 102/67 92 08/07/19 03:32 36.4 C L 76 17 116/71 92 08/06/19 23:22 36.7 C 81 19 106/59 L 92 Laboratory Results Laboratory Results - last 24 hr 08/06/19 08/06/19 08/06/19 11:44 14:38 16:25 WBC RBC Hgb Hct MCV MCH MCHC RDW Std Deviation RDW Coeff of Veronica Plt Count MPV Absolute Nucleated RBC Nucleated RBC % (auto) APTT > 139.0 H* PTT Ratio > 5.1 Sodium Potassium Chloride Carbon Dioxide Anion Gap BUN Creatinine Est Cr Clr Drug Dosing Est GFR ( Amer) Est GFR (Non-Af Amer) BUN/Creatinine Ratio Glucose POC Glucose 289 H 262 H Calcium Phosphorus Magnesium 08/06/19 08/06/19 08/06/19 17:00 18:48 20:41 WBC RBC Hgb Hct MCV MCH MCHC RDW Std Deviation RDW Coeff of Veronica Plt Count MPV Absolute Nucleated RBC Nucleated RBC % (auto) APTT Cancelled Cancelled PTT Ratio Cancelled Cancelled Sodium Potassium Chloride Carbon Dioxide Anion Gap BUN Creatinine Est Cr Clr Drug Dosing Est GFR ( Amer) Est GFR (Non-Af Amer) BUN/Creatinine Ratio Glucose POC Glucose 244 H Calcium Phosphorus Magnesium 08/06/19 08/07/19 08/07/19 20:57 03:29 06:41 WBC RBC Hgb Hct MCV MCH MCHC RDW Std Deviation RDW Coeff of Veronica Plt Count MPV Absolute Nucleated RBC Nucleated RBC % (auto) APTT 29.4 90.5 H* PTT Ratio 1.1 3.3 Sodium 129 L Potassium 4.4 Chloride 93 L Carbon Dioxide 24 Anion Gap 11.0 BUN 31 H Creatinine 6.75 H* D Est Cr Clr Drug Dosing 9.5 Est GFR ( Amer) 6.6 Est GFR (Non-Af Amer) 5.7 BUN/Creatinine Ratio 4.6 L Glucose 169 H POC Glucose Calcium 8.8 Phosphorus 8.8 H Magnesium 2.1 08/07/19 08/07/19 06:41 07:19 WBC 6.81 RBC 2.68 L Hgb 8.7 L Hct 25.5 L MCV 95.1 MCH 32.5 MCHC 34.1 RDW Std Deviation 63.4 H RDW Coeff of Veronica 18.2 H Plt Count 200 MPV 9.7 Absolute Nucleated RBC 0.04 H Nucleated RBC % (auto) 0.6 APTT PTT Ratio Sodium Potassium Chloride Carbon Dioxide Anion Gap BUN Creatinine Est Cr Clr Drug Dosing Est GFR ( Amer) Est GFR (Non-Af Amer) BUN/Creatinine Ratio Glucose POC Glucose 188 H Calcium Phosphorus Magnesium Medications Administered Home Medications latanoprost 1 drp OPB HS 05/14/18 [History Confirmed 08/02/19] levothyroxine 50 mcg PO QAM 05/14/18 [History Confirmed 08/02/19] omega-3 acid ethyl esters 1 g PO DAILY 05/14/18 [History Confirmed 08/02/19] aspirin [Aspir-81] 81 mg PO HS 07/23/18 [History Confirmed 08/02/19] cholecalciferol (vitamin D3) 50,000 units PO WK 07/23/18 [History Confirmed 08/02/19] metoprolol tartrate 100 mg tablet 100 mg PO BID #180 tab 12/30/18 [Rx Confirmed 08/02/19] insulin glargine 100 unit/mL (3 mL) subcutaneous pen See Rx Instructions SUBCUT .COMPLEX #30 ml 05/15/19 [Rx Confirmed 08/02/19] amiodarone 200 mg PO BID 05/23/19 [History Confirmed 08/02/19] atorvastatin 40 mg PO QAM #30 tab 05/27/19 [Rx Confirmed 08/02/19] Auryxia 2 tab PO TIDM 06/21/19 [History Confirmed 08/02/19] furosemide 40 mg PO BID 06/21/19 [History Confirmed 08/02/19] oxycodone-acetaminophen 5 mg-325 mg tablet 1 tab PO DAILY PRN #30 tab 07/11/19 [Rx Confirmed 08/02/19] insulin aspart U-100 100 unit/mL (3 mL) subcutaneous pen See Rx Instructions .ROUTE .COMPLEX #15 ml 07/26/19 [Rx Confirmed 08/02/19] clopidogrel 75 mg tablet 75 mg PO DAILY #90 tab 08/01/19 [Rx Confirmed 08/02/19] pregabalin 25 mg capsule 25 mg PO BID #60 cap 08/03/19 [Rx] Active Medications Acetaminophen (Tylenol) 650 mg PO Q4H PRN PRN Reason: Pain or Fever Stop: 09/01/19 23:13 Amiodarone HCl (Cordarone) 200 mg PO BID [facility] Stop: 09/01/19 23:13 Last Admin: 08/06/19 19:57 Dose: 200 mg Documented by: Amoxicillin/Clavulanate Potassium (Augmentin 500mg) 1 tab PO QDD [facility]; Protocol Stop: 08/13/19 16:29 Last Admin: 08/06/19 17:32 Dose: 1 tab Documented by: Aspirin (Ecotrin Ectab) 81 mg PO HS [facility] Stop: 09/02/19 20:59 Last Admin: 08/06/19 19:57 Dose: 81 mg Documented by: Atorvastatin Calcium (Lipitor) 40 mg PO QAM [facility] Stop: 09/02/19 08:59 Last Admin: 08/06/19 08:11 Dose: 40 mg Documented by: Clopidogrel Bisulfate (Plavix) 75 mg PO DAILY [facility] Stop: 09/02/19 08:59 Last Admin: 08/06/19 08:11 Dose: 75 mg Documented by: Dextrose (Dextrose 50%) 25 - 50 ml IV UD PRN; Protocol PRN Reason: Hypoglycemia Protocol Stop: 09/01/19 23:13 Fish Oil ([place]-3 (Purified Fish Oil)) 1 gm PO DAILY [facility] Stop: 09/02/19 08:59 Last Admin: 08/06/19 08:10 Dose: 1 gm Documented by: Furosemide (Lasix) 40 mg PO BID [facility] Stop: 09/01/19 23:13 Last Admin: 08/06/19 19:55 Dose: 40 mg Documented by: Glucagon (Glucagen) 1 mg SQ UD PRN; Protocol PRN Reason: Hypoglycemia Protocol Stop: 09/01/19 23:13 Glucose (Dex4 Glucose) 4 - 8 tabs PO UD PRN; Protocol PRN Reason: Hypoglycemia Protocol Stop: 09/01/19 23:13 Glucose (Glucose 40%) 15 - 30 gm PO UD PRN; Protocol PRN Reason: Hypoglycemia Protocol Stop: 09/01/19 23:13 Heparin Sodium/Dextrose (Heparin Sodium/Dextrose) 25,000 units in 500 mls @ 0 mls/hr IV .Q0M [facility]; Protocol Stop: 09/01/19 19:59 Last Titration: 08/07/19 07:08 Dose: 1,450 units/hr, 29 mls/hr Documented by: Sodium Chloride (Nss 1000ml) 1,000 mls @ 0 mls/hr IV .Q0M PRN PRN Reason: For Hemodialysis Use ONLY Stop: 08/07/19 12:59 Insulin Aspart (Novolog Flexpen) 0 units SC ACHS [facility] Stop: 09/02/19 07:29 Last Admin: 08/07/19 08:44 Dose: 2 units Documented by: Insulin Glargine (Lantus Solostar Pen) 24 units SQ QAM [facility] Stop: 09/05/19 08:59 Last Admin: 08/07/19 08:45 Dose: 24 units Documented by: Latanoprost (Xalatan Oph) 1 drops OPB HS [facility] Stop: 09/02/19 20:59 Last Admin: 08/06/19 19:57 Dose: 1 drops Documented by: Levothyroxine Sodium (Synthroid) 50 mcg PO DAILYBB [facility] Stop: 09/02/19 06:29 Last Admin: 08/07/19 05:32 Dose: 50 mcg Documented by: Metoprolol Tartrate (Lopressor) 50 mg PO Q8 [facility] Stop: 09/01/19 23:13 Last Admin: 08/07/19 05:32 Dose: 50 mg Documented by: Miscellaneous (Carbohydrates For Hypoglycemia) 15 - 30 gm PO UD PRN PRN Reason: Hypoglycemia Protocol Stop: 09/01/19 23:13 Nitroglycerin (Nitro-Bid 2%) 1 inch EXT Q6H [facility] Stop: 09/02/19 05:59 Last Admin: 08/07/19 05:32 Dose: 1 inch Documented by: Auryxia: Non- Formulary Patient's Own Med 1 ea PO TIDM [facility] Stop: 09/06/19 07:59 Ondansetron HCl (Zofran) 4 mg IV Q6H PRN PRN Reason: Nausea Stop: 09/01/19 23:13 Last Admin: 08/02/19 23:40 Dose: 4 mg Documented by: Oxycodone/Acetaminophen (Percocet 5mg/325mg) 1 tab PO DAILY PRN PRN Reason: Severe Pain Stop: 08/16/19 23:13 Last Admin: 08/06/19 19:55 Dose: 1 tab Documented by: Pregabalin (Lyrica) 25 mg PO BID [facility] Stop: 09/01/19 23:13 Last Admin: 08/06/19 19:57 Dose: 25 mg Documented by: Resident Activity Tracking Resident Involvement: Resident Care Provided Care Provided: Adult Hospital Medicine (1) Diabetic neuropathy Diabetes mellitus complication detail: diabetic polyneuropathy Diabetes mellitus type: type 2 Qualified Code(s): E11.42 - Type 2 diabetes mellitus with diabetic polyneuropathy (2) Sleep apnea Sleep apnea type: obstructive Qualified Code(s): G47.33 - Obstructive sleep apnea (adult) (pediatric) (3) Anemia Anemia type: due to chronic kidney disease Chronic kidney disease stage: on c hronic dialysis Qualified Code(s): N18.6 - End stage renal disease; D63.1 - Anemia in chronic kidney disease; Z99.2 - Dependence on renal dialysis (4) Hyperlipidemia Hyperlipidemia type: mixed hyperlipidemia Qualified Code(s): E78.2 - Mixed hyperlipidemia (5) Hypothyroidism Hypothyroidism type: acquired Qualified Code(s): E03.9 - Hypothyroidism, unspecified (6) Hypertension Hypertension type: essential hypertension Qualified Code(s): I10 - Essential (primary) hypertension
--- NOTE | 2019-08-07 10:56 | Nephrology Progress Note ---
Date of Service August 07, 2019 Assessment & Plan (1) End-stage renal disease (ESRD): -- Will provide HD this am in preparation for cardiac catheterization this afternoon. Will attempt 3L UF today (2) Non-ST elevation MT (NSTEMI): -- PCI scheduled for this afternoon. Await results (3) Fever: -- Defervesced. On empiric Cefipime. Urine culture + for pansensitive E. Coli Subjective Mrs. Bennett was seen & examined in her hospital room this morning. No chest discomfort overnight. No new medical concerns voiced. Review of Systems Constitutional: + weakness; no fever Eyes: no worsening vision and no problem reported Ear, Nose, Mouth, Throat: no problem reported Respiratory: no cough and no dyspnea Cardiovascular: no chest pain, no palpitations and no edema Gastrointestinal: no abdominal pain, no nausea, no vomiting and no diarrhea/loose stools Genitourinary: no dysuria and no hematuria Musculoskeletal: no back pain Integumentary: no rash Neurologic: no falls, no dizziness and no confusion Physical Exam Constitutional: + ill appearing; not in distress Eyes: PERRL, conjunctivae normal, anicteric sclerae ENMT: external ear and nose normal, oropharynx normal Neck: trachea midline, no thyromegaly Respiratory: normal respiratory effort, lungs clear to auscultation Auscultation: + rales (LLL) Cardiovascular: RRR, no murmur, no edema Rate/Rhythm: regular rate Extremities: + AV fistula (+ bruit) Gastrointestinal (Abdomen): normal bowel sounds, soft, nontender, no hepatosplenomegaly Musculoskeletal: Extremities: no cyanosis Skin: no rashes, warm and dry Neurologic: awake; not confused Results & Data Vital Signs (Past 12 Hours) Vital Signs Temp Pulse Pulse Resp BP BP Pulse Ox 08/07/19 10:40 68 131/59 L 08/07/19 10:20 68 112/56 L 08/07/19 10:00 68 118/55 L 08/07/19 09:40 69 120/60 08/07/19 09:20 73 125/65 08/07/19 09:00 73 125/65 08/07/19 08:40 72 125/67 08/07/19 08:21 36.6 C 72 08/07/19 08:00 74 08/07/19 07:06 36.5 C 72 19 102/67 92 08/07/19 03:32 36.4 C L 76 17 116/71 92 08/06/19 23:22 36.7 C 81 19 106/59 L 92 Laboratory Results Laboratory Tests 08/07/19 08/07/19 06:41 06:41 WBC 6.81 Hgb 8.7 L Hct 25.5 L Plt Count 200 Sodium 129 L Potassium 4.4 Chloride 93 L Carbon Dioxide 24 BUN 31 H Creatinine 6.75 H* D Glucose 169 H Phosphorus 8.8 H PG Care Time/CCT Total # of Minutes Spent Total Time Spent with Patient: Total time spent is greater than 50% in coordination of care (as documented) at patient's floor/unit and/or counseling patient: Coding Level of Care Code 59991 Subseq Hosp Care Lvl 3 Diagnoses End-stage renal disease (ESRD) N18.6 Non-ST elevation MT (NSTEMI) I21.4 Fever R50.9
[2019-08-07 11:30] LABS: Partial Thromboplastin Ratio 1.7
[2019-08-07 11:31] LABS: Partial Thromboplastin Time 45.9 Seconds (21.0-31.0)
[2019-08-07] MEDS ORDERED: fentaNYL citrate 100 MCG/2 ML VIAL ONE ×2 (13:58→15:59)
[2019-08-07] MEDS ORDERED: HEPARIN (PORCINE) 1000 UNIT/ML 10 ML (CATH LAB USE ONLY) ONE ×3 (13:58→15:10)
[2019-08-07] MEDS ORDERED: NiCARDipine HCL INJ 2.5 MG/ML 10 ML AMP ONE (13:58)
[2019-08-07] MEDS ORDERED: NITROGLYCERIN/D5W 100MCG/ML 20ML SYR ONE (13:59)
[2019-08-07] MEDS ORDERED: MIDAZOLAM HCL 1 MG/ML 2ML VIAL ONE ×2 (13:59→15:37)
[2019-08-07] MEDS ORDERED: CLOPIDOGREL BISULFATE 300 MG TAB ONE (16:26)
--- NOTE | 2019-08-07 16:27 | Pre Anesthesia Assessment ---
Date of Service August 07, 2019 Pre Sedation Assessment Vital Signs Temp Pulse Pulse Pulse Resp BP BP 08/07/19 11:50 97.9 F 73 08/07/19 11:20 67 127/51 L 08/07/19 11:00 66 121/53 L 08/07/19 10:40 68 131/59 L 08/07/19 10:20 68 112/56 L 08/07/19 10:00 68 118/55 L 08/07/19 09:40 69 120/60 08/07/19 09:20 73 125/65 08/07/19 09:00 73 125/65 08/07/19 08:40 72 125/67 08/07/19 08:21 97.9 F 72 08/07/19 08:00 74 08/07/19 07:06 97.7 F 72 19 08/07/19 03:32 97.5 F L 76 17 08/06/19 23:22 98.1 F 81 19 08/06/19 21:48 82 117/68 08/06/19 19:25 98.1 F 77 16 BP Pulse Ox 08/07/19 11:50 141/68 H 08/07/19 11:20 08/07/19 11:00 08/07/19 10:40 08/07/19 10:20 08/07/19 10:00 08/07/19 09:40 08/07/19 09:20 08/07/19 09:00 08/07/19 08:40 08/07/19 08:21 08/07/19 08:00 08/07/19 07:06 102/67 92 08/07/19 03:32 116/71 92 08/06/19 23:22 106/59 L 92 08/06/19 21:48 08/06/19 19:25 97/63 L 100 Cardiovascular RRR, no murmur, no edema Respiratory normal respiratory effort, lungs clear to auscultation Pre-Sedation Airway Assessment Smoking Status: Never smoker Hx Sleep Apnea: No Hx Difficult Intubation: No Short, Thick Neck: No Thyromental Distance: > or= 3.5 Finger Breadths Oral Cavity: + Chipped Teeth Mallampati Class: IV ASA: ASA3 NPO Status Date of Last Intake of Fluids: 08/06/19 Time of Last Intake of Fluids: 20:00 Date of Last Intake of Solid Food: 08/06/19 Time of Last Intake of Solid Foods: 20:00 Procedure Planning Contraindications for Sedation: none Current Medications Reviewed: Yes Notes The planned sedation has been discussed with the patient. Informed Consent was obtained. I have identified the patient, determined the appropriateness of sedation and have assessed the patient immediately prior to the procedure. All medicine(s) and interventions are by my order.
--- NOTE | 2019-08-07 16:27 | Post Anesthesia Assessment ---
Date of Service August 07, 2019 Post Sedation Assessment Vital Signs Temp Pulse Pulse Pulse Resp BP BP 08/07/19 11:50 97.9 F 73 08/07/19 11:20 67 127/51 L 08/07/19 11:00 66 121/53 L 08/07/19 10:40 68 131/59 L 08/07/19 10:20 68 112/56 L 08/07/19 10:00 68 118/55 L 08/07/19 09:40 69 120/60 08/07/19 09:20 73 125/65 08/07/19 09:00 73 125/65 08/07/19 08:40 72 125/67 08/07/19 08:21 97.9 F 72 08/07/19 08:00 74 08/07/19 07:06 97.7 F 72 19 08/07/19 03:32 97.5 F L 76 17 08/06/19 23:22 98.1 F 81 19 08/06/19 21:48 82 117/68 08/06/19 19:25 98.1 F 77 16 BP Pulse Ox 08/07/19 11:50 141/68 H 08/07/19 11:20 08/07/19 11:00 08/07/19 10:40 08/07/19 10:20 08/07/19 10:00 08/07/19 09:40 08/07/19 09:20 08/07/19 09:00 08/07/19 08:40 08/07/19 08:21 08/07/19 08:00 08/07/19 07:06 102/67 92 08/07/19 03:32 116/71 92 08/06/19 23:22 106/59 L 92 08/06/19 21:48 08/06/19 19:25 97/63 L 100 Recovery Score Activity: Moves 4 extremities Respiration: Deep Breath/Cough Circulation: +/-20% PreAnes Value Consciousness: Fully Awake Oxygen Saturation: O2 needed for >90% Discharge Sedation Level of Care: Fast Track Phase II Post Sedation Plan On clinical assessment, the patient appears to have tolerated the sedation without complications. Patient is recovering as anticipated. Patient will continue to be monitored by nursing and may be discharged when sedation discharge criteria are met per below protocol. Upon Completions of procedure up to 15 minutes continue every 5 minute vital signs and the P.A.R. score; then discharge to a Phase I or Fast Track to Phase II per the following guidelines: * Discharge Patient to appropriate Phase II area if PAR is 8 or greater or return to pre- procedure baseline. The post - procedure orders will be as directed. * If PAR score is less than 8 or not return to pre-procedure baseline then patient will follow Phase I monitoring till PAR is reached for Phase II. The Phase I may be done in procedure room or may call to secure a Phase I area. * If naloxone or flumazenil are used for reversal, hold in Phase I for continued monitoring from when last reversal dose was given for a minimum of 60 minutes or longer pending the nurse and/or physician discretion of patient condition before discharge to Phase II. Please call the Sedation Physician to re-evaluate and complete post-note for discharge to Phase II area. Do NOT discharge from procedure sedation or Phase 1 until post- sedation evaluation note is complete by procedure /sedation MD Sedation Discharge Instructions to be given to the patient at discharge to home.
--- NOTE | 2019-08-07 16:40 | Cardiac Catheterization ---
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 Cardiac Status Clinical evaluation leading to the procedure CAD Presenation: Non STEMI Anginal Classification: CCS IV Heart Failure: No Cardiogenic Shock within 24 Hours: No Cardiac Arrest within 24 Hours: No Imaging Studies Past 6 Months: Yes Stress Studies Past 6 Months: No Diagnostic Physicians Name: Shahram Hernandez MD Status: Elective Closure Device Percutaneous Entry Location: Radial Closure Device: Radial Band Recommendations: PCI without planned CABG PCI Indication: PCI for high risk Non-TOBI Lesion Segment Name: mid LAD Culprit Artery: Yes Stenosis Prior to Rx (%): 95 Chronic Total Occlusion: No IVUS: No FFR: No Pre-Procedure JAIMIE Flow: 3 Previously Treated Lesion: No Lesion Complexity: Non-High/Non-C Lesion Length (mm): 12 Thrombus Present: No Bifurcation Lesion: No Guidewire Across Lesion: Stenosis Post-Procedure (%): 0 Post-Procedure JAIMIE Flow: 3 Devices(s) Deployed: Yes Yes Lesion #2 Segment Name: distal RCA Culprit Artery: No Stenosis Prior to Rx (%): 95 Chronic Total Occlusion: No IVUS: No FFR: No Pre-Procedure JAIMIE Flow: 3 Previously Treated Lesion: No Lesion Complexity: Non-High/Non-C Lesion Length (mm): 20 Thrombus Present: No Bifurcation Lesion: No Guidewire Across Lesion: Yes Stenosis Post-Procedure (%): 0 Post-Procedure JAIMIE Flow: 3 Devices(s) Deployed: Yes Intraprocedure Events Significant Disection: No Perforation: No Cardiac Cath Procedure Full Procedure Date August 07, 2019 Pre-Procedure Diagnosis Pre-Procedure Diagnosis: Non STEMI AUC Score AUC Score: 8 Post-Procedure Diagnosis Post-Procedure Diagnosis: Severe CAD and Successful PCI Procedure(s) Performed Procedure(s) Performed: Coronary Angiography and Drug Eluting Stent International Trade Teacher Shahram Hernandez MD Singer And Unloader(s) Kellee Estimated Blood Loss Estimated Blood Loss: 15 Medication(s) Medication(s): Clopidogrel, Fentanyl, Heparin, Lidocaine 1%, Nicardipine, Nitroglycerin and Versed Summary of Findings Indication: Post NSTEMI last week at which time found to have multivessel disease occluding a 95% focal mid LAD and 60% mid RCA followed by a 95% distal RCA stenosis. Here for staged PCI of LAD and RCA. Access: 6 Fr right radial artery Catheters: EBU 3.5 guide, JR4 guide -- PCI of LAD-- Antithrombotic therapy: Heparin, clopidogrel Procedure: Left main cannulated with EBU 3.5 guide BMW wire passed across lesion into distal vessel Mid LAD lesion predilated with 2.5 compliant balloon Dilated lesion stented with 3.0 x 18 mm [place] drug-eluting stent Stent post-dilated with 3.0 noncompliant balloon IC vasodilators administered for spasm Post procedure JAIMIE 3 flow, stent well expanded with minimal residual stenosis and no apparent cardiac complications. PCI of RCA RCA cannulated with JR4 guide BMW wire passed across lesion into distal PDA Distal RCA dilated with 2.5 and 3.0 balloons With aid of a telescope guide assist distal RCA stented with 3.5 x 22 mm [place] drug-eluting stent. Stent postdilated with 3.5 NC Mid RCA dilated with 3.5 NC Mid RCA stented with 3.5 x 18 mm [place] drug-eluting stent and postdilated with 3.5 NC Post procedure JAIMIE-3 flow, stent well expanded with minimal residual stenosis and no apparent cardiac complications Arterial Closure: TR band Summary: 1. Successful PCI of mid LAD with single drug-eluting stent (3.0 x 18 Seun). 2. Successful PCI of mid RCA with drug-eluting stent (3.5 x 18 Seun) and distal RCA with drug-eluting stent (3.5 x 22 [place]). Recommendations: Return to PCU for continued monitoring Additional 300 mg of clopidogrel and Carbon Sequestration Plant Operator Continue dual-antiplatelet therapy for at least 1 year post PR, has been on indefinitely in the setting of PAD Continue statin, and ASCVD risk factor modification Hemodynamics Rest Ao:: 126/46/76 Final Ao: 119/49/77 LV: -- Recommendations Recommendations: PCI without planned CABG Specimens Specimens: None Radiation Exposure (mGy) 6047 Contrast (mls) 195 Fluids (cc crystalloids) Fluids (cc crystalloids): 0 Drains Drains: none Anesthesia moderate Procedural Complication(s) None Disposition PCU I attest to the content of the Intraoperative Record and any orders documented therein. Any exceptions are noted below. [facility] Card Cath Procedure Codes Moderate Sedation Procedure 1: Sedation/Anesthesia: 31132 Mod Sedation by the same physician;Init15 Min Child Age 5 & Up Procedure 2: Sedation/Anesthesia: 00884 Mod Sedation by the same physician; Ea [id number] Minutes Stenting Procedure 1: Cardiovascular Stent Procedures: 39096 Perc transcatheter placement of intracoronary stent(s), with ang Procedure 10: Cardiovascular Stent Procedures: 33576 Ea addl branch of a major coronary artery PG Care Time/CCT Total # of Minutes Spent Total Time Spent with Patient: Total time spent is greater than 50% in coordination of care (as documented) at patient's floor/unit and/or counseling patient:
--- NOTE | 2019-08-07 16:46 | Cardiology Progress Note ---
Date of Service August 07, 2019 Assessment & Plan (1) Non-ST elevation [place] (NSTEMI): -- Multivessel CAD 2. Healthcare associated pneumonia 3. End-stage renal disease on HD 4. 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 Lower extremity PAD post bilateral lower extremity interventions and right BKA 6. Insulin-dependent diabetes 7. Hypertension, dyslipidemia 8. Anemia Respiratory much improved from wednesday after HD. Post PCI to LAD and RCA today without complication. -- Continue DAPT with ASA/clopidogrel -- Can discontinue heparin and nitropatch -- Continue metoprolol, can increase back to home dose -- continue home amiodarone -- continue statin. From a cardiac standpoint if stable overnight could be discharged tomorrow if other medical issues stable. Admission and Anticipated Discharge Date Admission Date: August 02, 2019 Subjective Patient tolerated PCI well today. No chest pain post procedure. Mild back discomfort from lying on table. Review of Systems Review of Systems: All systems reviewed & are unremarkable except as noted in HPI & below Physical Exam Physical Exam: General: Comfortable, no acute distress Eyes: Sclerae anicteric HENT: Oropharynx clear mucous membranes moist Lungs: Clear to auscultation bilaterally Cardiac: Regular rate and rhythm, no murmurs, rubs or gallops. Abdomen: Soft, nontender Neuro: Nonfocal Psych: Alert orient x3, normal affect and mood Extremities/Vascular: -- 2+ radial on right -- fistula with thrill on LT -- no lower extremity edema. Results & Data ([facility]) Vital Signs (Past 12 Hours) Vital Signs Temp Pulse Pulse Resp BP BP BP 08/07/19 16:40 77 18 97/56 L 08/07/19 16:25 78 18 118/49 L 08/07/19 11:50 97.9 F 73 141/68 H 08/07/19 11:20 67 127/51 L 08/07/19 11:00 66 121/53 L 08/07/19 10:40 68 131/59 L 08/07/19 10:20 68 112/56 L 08/07/19 10:00 68 118/55 L 08/07/19 09:40 69 120/60 08/07/19 09:20 73 125/65 08/07/19 09:00 73 125/65 08/07/19 08:40 72 125/67 08/07/19 08:21 97.9 F 72 08/07/19 08:00 74 08/07/19 07:06 97.7 F 72 19 102/67 Pulse Ox 08/07/19 16:40 95 08/07/19 16:25 94 08/07/19 11:50 08/07/19 11:20 08/07/19 11:00 08/07/19 10:40 08/07/19 10:20 08/07/19 10:00 08/07/19 09:40 08/07/19 09:20 08/07/19 09:00 08/07/19 08:40 08/07/19 08:21 08/07/19 08:00 08/07/19 07:06 92 PG Care Time/CCT Total # of Minutes Spent Total Time Spent with Patient: Total time spent is greater than 50% in coordination of care (as documented) at patient's floor/unit and/or counseling patient: Coding Level of Care Code 85568 Subseq Hosp Care Lvl 3 Diagnoses Non-ST elevation [place] (NSTEMI) I21.4
[2019-08-07] MEDS: OMEGA-3 (PURIFIED FISH OIL) 1 GM CAP PO SCH (18:15)
[2019-08-07] MEDS: CLOPIDOGREL BISULFATE 75 MG TAB PO SCH (18:17)
[2019-08-07] MEDS: ATORVASTATIN 40 MG TAB PO SCH (18:17)
[2019-08-07] MEDS: AMIODARONE 200 MG TAB PO SCH ×2 (18:17→21:32)
[2019-08-07] MEDS: AMOXICILLIN/CLAVULANATE 500 MG TAB PO SCH (18:18)
[2019-08-07] MEDS: PREGABALIN 25 MG CAP PO SCH ×2 (18:18→21:33)
[2019-08-07] MEDS: FUROSEMIDE 40 MG TAB PO SCH ×2 (18:18→21:33)
[2019-08-07] MEDS: AURYXIA PO SCH ×2 (19:09→19:10)
[2019-08-07] MEDS: ONDANSETRON INJ 2 MG/ML 2 ML VIAL IV PRN (20:59)
[2019-08-07] MEDS: OXYCODONE/ACETAMINOPHEN 5mg/325mg TAB PO PRN (21:32)
[2019-08-07] MEDS: LATANOPROST 0.005% OP SOLN 2.5 ML BTL OPB SCH (21:33)
[2019-08-07] MEDS: ASPIRIN 81 MG ECTAB PO SCH (23:38)
[2019-08-08] MEDS: METOPROLOL TARTRATE 50 MG TAB PO SCH ×3 (05:38→21:00)
[2019-08-08] MEDS: NITROGLYCERIN 2% OINTMENT 30GM TUBE EXT SCH ×4 (05:38→23:11)
[2019-08-08] MEDS: LEVOTHYROXINE SODIUM 50 MCG TABLET PO SCH (05:38)
[2019-08-08 07:25] LABS: Hematocrit (blood only) 27.6 % (37-47); Hemoglobin 8.8 g/dL (12.0-16.0); Mean Corpuscular Hemoglobin 31.7 pg (25-34); Mean Corpuscular Hgb Conc 31.9 g/dL (32-36); Mean Corpuscular Volume 99.3 fL (80-100); Nucleated RBC # (auto) 0.06 K/uL (0-0); Platelet Count 200 K/uL (130-400); RDW Coefficient of Variation 18.8 % (11.5-14.5); RDW Standard Deviation 67.4 fL (36.4-46.3); Red Blood Count 2.78 M/uL (4.2-5.4); White Blood Count 6.35 K/uL (4.8-10.8)
[2019-08-08 08:17] LABS: BUN Creatinine Ratio 4.1 (10-20); Blood Urea Nitrogen 21 mg/dl (7-18); Calcium 9.1 mg/dl (8.5-10.1); Carbon Dioxide 24 mmol/L (21-32); Chloride 96 mmol/L (98-107); Creatinine Clr Calc Pharmacy 12.1 ml/min; Est GFR (African American) 8.9; Est GFR (Non-African American) 7.6; Glucose 150 mg/dl (70-99); Sodium 131 mmol/L (136-145)
[2019-08-08] MEDS: ATORVASTATIN 40 MG TAB PO SCH (08:39)
[2019-08-08] MEDS: CLOPIDOGREL BISULFATE 75 MG TAB PO SCH (08:39)
[2019-08-08] MEDS: FUROSEMIDE 40 MG TAB PO SCH ×2 (08:39→21:00)
[2019-08-08] MEDS: INSULIN ASPART 100 UNITS/ML 3 ML PEN SC SCH ×4 (08:40→21:01)
[2019-08-08] MEDS: OMEGA-3 (PURIFIED FISH OIL) 1 GM CAP PO SCH (08:40)
[2019-08-08] MEDS: INSULIN GLARGINE SOLOSTAR 100 UNITS/ML 3 ML PEN SQ SCH (08:40)
[2019-08-08] MEDS: PREGABALIN 25 MG CAP PO SCH ×2 (08:47→20:58)
[2019-08-08] MEDS: AMIODARONE 200 MG TAB PO SCH ×2 (09:36→20:59)
--- NOTE | 2019-08-08 10:22 | Nephrology Progress Note ---
Date of Service August 08, 2019 Assessment & Plan (1) End-stage renal disease (ESRD): -- BP and volume status appropriate -- Tolerated HD well yesterday -- TTS schedule as outpatient -- Will plan HD tomorrow, anticipated patient will remain inpatient (2) Non-ST elevation [place] (NSTEMI): -- PCI 08/07/19 (3) Fever: -- Defervesced. On empiric Cefepime. Urine culture + for pansensitive E. Coli Subjective No acute events overnight. Tolerated HD well yesterday. Uncomfortable today. Overall, Umu feels tired. Review of Systems Review of Systems: All systems reviewed & are unremarkable except as noted in HPI & below Physical Exam Constitutional: well developed; no acute distress Eyes: no scleral abnormality and no corneal abnormality ENMT: Mouth: no oral mucosal abnormality and oral mucous membranes not dry Neck: normal visual inspection and trachea midline Respiratory: normal respiratory effort Auscultation: lungs clear to auscultation bilaterally Cardiovascular: Rate/Rhythm: regular rate Heart Sounds: normal S1, normal S2 and + murmur Extremities: no edema Musculoskeletal: Extremities: no cyanosis and no clubbing Skin: normal turgor; no lesions Neurologic: Motor/Sensory: no tremor and no asterixis Psychiatric: Orientation: alert and oriented x 3 Results & Data Vital Signs (Past 12 Hours) Vital Signs Temp Pulse Pulse Pulse Resp BP BP 08/08/19 07:28 36.5 C 70 17 96/59 L 08/08/19 05:25 76 77/43 L 116/72 08/08/19 03:18 36.3 C L 72 17 95/60 L 08/07/19 23:59 79 08/07/19 23:34 36.7 C 78 19 95/62 L Pulse Ox 08/08/19 07:28 95 08/08/19 05:25 08/08/19 03:18 92 08/07/19 23:59 08/07/19 23:34 91 Laboratory Results Laboratory Results - last 24 hr 08/07/19 08/07/19 08/07/19 11:00 11:24 15:05 WBC RBC Hgb Hct MCV MCH MCHC RDW Std Deviation RDW Coeff of Veronica Plt Count MPV Absolute Nucleated RBC Nucleated RBC % (auto) APTT 45.9 H* PTT Ratio 1.7 Activ Coag Time Kaolin 213 H Sodium Potassium Chloride Carbon Dioxide Anion Gap BUN Creatinine Est Cr Clr Drug Dosing Est GFR ( Amer) Est GFR (Non-Af Amer) BUN/Creatinine Ratio Glucose POC Glucose 123 H Calcium 08/07/19 08/07/19 08/07/19 15:48 16:55 20:20 WBC RBC Hgb Hct MCV MCH MCHC RDW Std Deviation RDW Coeff of Veronica Plt Count MPV Absolute Nucleated RBC Nucleated RBC % (auto) APTT PTT Ratio Activ Coag Time Kaolin 213 H Sodium Potassium Chloride Carbon Dioxide Anion Gap BUN Creatinine Est Cr Clr Drug Dosing Est GFR ( Amer) Est GFR (Non-Af Amer) BUN/Creatinine Ratio Glucose POC Glucose 160 H 231 H Calcium 08/08/19 08/08/19 08/08/19 06:39 06:39 07:30 WBC 6.35 RBC 2.78 L Hgb 8.8 L Hct 27.6 L MCV 99.3 MCH 31.7 MCHC 31.9 L RDW Std Deviation 67.4 H RDW Coeff of Veronica 18.8 H Plt Count 200 MPV 10.0 Absolute Nucleated RBC 0.06 H Nucleated RBC % (auto) 1.0 APTT PTT Ratio Activ Coag Time Kaolin Sodium 131 L Potassium TNP Chloride 96 L Carbon Dioxide 24 Anion Gap 11.0 BUN 21 H Creatinine 5.27 H* D Est Cr Clr Drug Dosing 12.1 Est GFR ( Amer) 8.9 Est GFR (Non-Af Amer) 7.6 BUN/Creatinine Ratio 4.1 L Glucose 150 H POC Glucose 191 H Calcium 9.1 PG Care Time/CCT Total # of Minutes Spent Total Time Spent with Patient: Total time spent is greater than 50% in coordination of care (as documented) at patient's floor/unit and/or counseling patient: Coding Level of Care Code 57942 Subseq Hosp Care Lvl 3 Diagnoses End-stage renal disease (ESRD) N18.6 Non-ST elevation [place] (NSTEMI) I21.4 Fever R50.9
--- NOTE | 2019-08-08 12:33 | Hospitalist Progress Note ---
Date of Service August 08, 2019 Assessment & Plan (1) Non-ST elevation [place] (NSTEMI): 69-year-old female with PMHx significant for DMII, ESRD on dialysis MWF, diastolic CHF, HTN, HLD who was admitted with NSTEMI and LLL pneumonia. NSTEMI -Pt presented with left shoulder pain, noted ST depressions in anterolateral leads, ST elevations in V2 and aVR -Troponin 12.9 on admission, trended down to 9.19 on Aug 03. -Echo noted no systolic dysfunction or wall motion abnormalities -cardiac cath 08/04/2019 with 95% LAD, 100% circumflex and 95% distal RCA occlusion. Repeat PCI 08/07/2019 for LAD and RCA revascularization, high risk candidate for bypass surgery. 3 more stents placed. -continue ASA, atorvastatin 40mg daily, Plavix 75mg daily and metoprolol tartrate 100mg BID -continue home amiodarone (see below) -continue to monitor blood pressures- have been on lower side. Pneumonia: -Pt reported fever, cough, SOB on admission -chest XR with LLL basilar opacity vs. atelectasis -WBC not increased, flu negative. -Lactate 2.2 on admission, downtrended, procal 1.06 -Blood Cx-NGTD -Initially given Cefepime, levaquin and Vancomycin. -Currently being treated with po Augmentin-Day 7 of abx treatment Cystitis: -Pt reported foul-smelling urine. -UCx growing E coli, pansensitive -on Augmentin as above with previous administration of levaquin and cefepime for pneumonia above. ESRD -Is usually on dialysis MWF weekly - most recently Aug 07 -Continue Procrit. Chronic: - Hypertension, hyperlipidemia, peripheral vascular disease: See NSTEMI meds above. - AVNRT, left posterior fascicular block, palpitations, paroxysmal a fib, paroxysmal SVT, right BBB: Continue home amiodarone. - Chronic diastolic CHF: Continue home Lasix 40 mg twice daily. - Anemia, previous GI bleed, colon cancer: Admit hemoglobin 10.1, similar to the baseline 10s. Stable around 8.7 today. - Type 2 diabetes: On Lantus and insulin sliding scale. HbA1c 7.6. - Diabetic neuropathy: Continue home pregabalin. - Sleep apnea, morbid obesity: Patient says she stopped using CPAP years ago. - Hypothyroidism: Continue home levothyroxine. - Chronic hyponatremia: Admit sodium 130, currently 129. Code status: Full code. FEN/GI: Heart healthy, DM2, renal dialysis. DVT prophy: Heparin infusion. PT/OT: Ordered, appreciate recs Dispo: Admitted to PCU telemetry. At baseline lives at home with . Admission and Anticipated Discharge Date Admission Date: August 02, 2019 Supervising Physician Co-Signing Physician Notes Resident Physician Supervision Note: I independently interviewed and examined the patient and verified the sierra hist ory and physical, reviewed labs and image studies, discussed the case with the resident Dr. Guzman and agree with the findings and care plan. Subjective ms. Bennett seen this AM with at bedside. She states she is doing well, no further episodes of chest or shoulder pain. Denies any SOB. Denies any headache, changes to vision, cough, runny nose, sore throat, palpitations, abdominal pain, diarrhea , swelling in hands or feet or numbness or tingling anywhere. Review of Systems Review of Systems: All systems reviewed & are unremarkable except as noted in Subjective Physical Exam Physical Exam: General: Alert, oriented. No acute distress, laying in bed. Skin: No noted rashes or bruises Psych: Appropriate mood and affect Neuro: No gross deficits HEENT: NC/AT, PERRLA, EOMI, oropharynx moist. Chest: Nontender to palpation. CV: RRR, Normal s1, s2. No murmurs appreciated Resp: Breath sounds clear bilaterally on front, no increased effort of breathing. No crackles/rhonchi/rales. Abdomen: Soft, nontender, nondistended, noted umbilical hernia. No guarding. No organomegaly appreciated. Extremities: No edema in left lower extremity, right BKA Results & Data ([facility]) Vital Signs (Past 12 Hours) Vital Signs Temp Pulse Pulse Pulse Resp BP BP 08/08/19 11:17 36.6 C 78 22 109/67 08/08/19 08:00 78 08/08/19 07:28 36.5 C 70 17 96/59 L 08/08/19 05:25 76 77/43 L 116/72 08/08/19 03:18 36.3 C L 72 17 95/60 L Pulse Ox 08/08/19 11:17 91 02/11/20 08:00 08/08/19 07:28 95 08/08/19 05:25 08/08/19 03:18 92 Resident Activity Tracking Resident Involvement: Resident Care Provided Care Provided: Adult Hospital Medicine
--- NOTE | 2019-08-08 13:45 | Cardiology Progress Note ---
Date of Service August 08, 2019 Assessment & Plan (1) Non-ST elevation [place] (NSTEMI): -- Multivessel CAD 2. Healthcare associated pneumonia 3. End-stage renal disease on HD 4. 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 Lower extremity PAD post bilateral lower extremity interventions and right BKA 6. Insulin-dependent diabetes 7. Hypertension, dyslipidemia 8. Anemia Post PCI to LAD and RCA yesterday Has remained chest pain-free. No apparent access site complications -- Continue DAPT with ASA/clopidogrel -- Continue metoprolol, home amiodarone and statin. From a cardiac standpoint okay for discharge when other medical issues resolved. Admission and Anticipated Discharge Date Admission Date: August 02, 2019 Subjective Patient reports feeling tired this morning but otherwise feeling well. Denies any chest pain. Breathing improved. Telemetry reviewedno events Review of Systems Review of Systems: All systems reviewed & are unremarkable except as noted in HPI & below Physical Exam Physical Exam: General: Comfortable, no acute distress HEENT: Sclerae anicteric, mucous membranes moist Lungs: Clear to auscultation bilaterally Cardiac: Regular rate and rhythm Abdomen: Soft, nontender Extremities: Warm, well perfused, no edema in right lower extremity. No hematoma at right radial artery access Neuro: Nonfocal Psych: Alert orient x3, normal affect and mood Results & Data ([facility]) Vital Signs (Past 12 Hours) Vital Signs Temp Pulse Pulse Pulse Resp BP BP 08/08/19 11:17 97.9 F 78 22 109/67 08/08/19 08:00 78 08/08/19 07:28 97.7 F 70 17 96/59 L 08/08/19 05:25 76 77/43 L 116/72 08/08/19 03:18 97.3 F L 72 17 95/60 L Pulse Ox 08/08/19 11:17 91 08/08/19 08:00 08/08/19 07:28 95 08/08/19 05:25 08/08/19 03:18 92 PG Care Time/CCT Total # of Minutes Spent Total Time Spent with Patient: Total time spent is greater than 50% in coordination of care (as documented) at patient's floor/unit and/or counseling patient: Coding Level of Care Code 44447 Subseq Hosp Care Lvl 2 Diagnoses Non-ST elevation [place] (NSTEMI) I21.4
[2019-08-08] MEDS: AMOXICILLIN/CLAVULANATE 500 MG TAB PO SCH (16:52)
[2019-08-08] MEDS: AURYXIA PO SCH (19:34)
[2019-08-08] MEDS: ASPIRIN 81 MG ECTAB PO SCH (20:59)
[2019-08-08] MEDS: LATANOPROST 0.005% OP SOLN 2.5 ML BTL OPB SCH (21:00)
[2019-08-08] MEDS: OXYCODONE/ACETAMINOPHEN 5mg/325mg TAB PO PRN (21:10)
[2019-08-09] MEDS: METOPROLOL TARTRATE 50 MG TAB PO SCH ×3 (05:58→21:54)
[2019-08-09] MEDS: NITROGLYCERIN 2% OINTMENT 30GM TUBE EXT SCH ×3 (05:58→18:52)
[2019-08-09] MEDS: LEVOTHYROXINE SODIUM 50 MCG TABLET PO SCH (05:59)
[2019-08-09] MEDS ORDERED: SODIUM CHLORIDE 0.9% 1000ML 1,000 ML IV PRN ×2 (07:00→09:52)
[2019-08-09] MEDS: AURYXIA PO SCH ×3 (07:06→17:32)
[2019-08-09 07:57] LABS: Basophils # (auto) 0.04 K/uL (0-0.2); Basophils % (auto) 0.6 %; Eosinophils # (auto) 0.16 K/uL (0-0.5); Eosinophils % (auto) 2.4 %; Hematocrit (blood only) 27.9 % (37-47); Hemoglobin 9.3 g/dL (12.0-16.0); Immature Granulocytes # (auto) 0.05 K/uL (0.00-0.02); Immature Granulocytes % (auto) 0.8 %; Lymphocytes # (auto) 1.31 K/uL (1.2-3.4); Lymphocytes % (auto) 19.8 %; Mean Corpuscular Hemoglobin 32.3 pg (25-34); Mean Corpuscular Hgb Conc 33.3 g/dL (32-36); Mean Corpuscular Volume 96.9 fL (80-100); Mean Platelet Volume 9.6 fL (7.4-10.4); Monocytes # (auto) 0.93 K/uL (0.11-0.59); Monocytes % (auto) 14.1 %; Neutrophils # (auto) 4.12 K/uL (1.4-6.5); Neutrophils % (auto) 62.3 %; Nucleated RBC # (auto) 0.05 K/uL (0-0); Nucleated RBC % (auto) 0.7 %; Platelet Count 215 K/uL (130-400); RDW Coefficient of Variation 18.8 % (11.5-14.5); Red Blood Count 2.88 M/uL (4.2-5.4); White Blood Count 6.61 K/uL (4.8-10.8)
[2019-08-09] MEDS: ATORVASTATIN 40 MG TAB PO SCH (08:13)
[2019-08-09] MEDS: OMEGA-3 (PURIFIED FISH OIL) 1 GM CAP PO SCH (08:13)
[2019-08-09] MEDS: CLOPIDOGREL BISULFATE 75 MG TAB PO SCH (08:13)
[2019-08-09] MEDS: AMIODARONE 200 MG TAB PO SCH ×2 (08:14→21:54)
[2019-08-09] MEDS: FUROSEMIDE 40 MG TAB PO SCH ×2 (08:14→21:53)
[2019-08-09] MEDS: INSULIN GLARGINE SOLOSTAR 100 UNITS/ML 3 ML PEN SQ SCH (08:15)
[2019-08-09] MEDS: INSULIN ASPART 100 UNITS/ML 3 ML PEN SC SCH ×4 (08:16→21:56)
[2019-08-09] MEDS: PREGABALIN 25 MG CAP PO SCH ×2 (08:18→21:55)
[2019-08-09 08:37] LABS: BUN Creatinine Ratio 4.2 (10-20); Calcium 9.2 mg/dl (8.5-10.1); Creatinine Clr Calc Pharmacy 9.1 ml/min; Est GFR (African American) 6.2; Est GFR (Non-African American) 5.4; Potassium 4.7 mmol/L (3.5-5.1)
--- NOTE | 2019-08-09 09:49 | Nephrology Progress Note ---
Date of Service August 09, 2019 Assessment & Plan (1) End-stage renal disease (ESRD): -- HD today, orders entered into EMR and discussed with dialysis nurse -- 2K bath, 3L UF goal -- Procrit 38312 units + venofer 100 mg with HD for anemia (2) Non-ST elevation [place] (NSTEMI): -- PCI 08/07/19 (3) Fever: -- Defervesced. Remains on Augmentin for UTI =/- pna. Urine culture + for pansensitive E. Coli Subjective No acute events overnight. Umu feels well this morning. She hopes to be discharged home tomorrow. She remains weak and feeling very fatigued. Appetite improving. No chest pain or palpitations. Remains on tele monitor. Review of Systems Review of Systems: All systems reviewed & are unremarkable except as noted in HPI & below Physical Exam Constitutional: well developed; no acute distress Eyes: no scleral abnormality and no corneal abnormality ENMT: Mouth: no oral mucosal abnormality and oral mucous membranes not dry Neck: normal visual inspection and trachea midline Respiratory: normal respiratory effort Auscultation: lungs clear to auscultation bilaterally Cardiovascular: Rate/Rhythm: regular rate Heart Sounds: normal S1, normal S2 and + murmur Extremities: + AV fistula; no edema Musculoskeletal: Extremities: no cyanosis and no clubbing Skin: normal turgor; no lesions Neurologic: Motor/Sensory: no tremor and no asterixis Psychiatric: Orientation: alert and oriented x 3 Results & Data Vital Signs (Past 12 Hours) Vital Signs Temp Pulse Pulse Pulse Resp BP Pulse Ox 08/09/19 08:00 73 08/09/19 07:47 36.8 C 72 17 120/65 94 08/09/19 04:16 36.6 C 70 17 115/74 94 08/08/19 23:14 36.8 C 72 19 100/64 94 Laboratory Results Laboratory Results - last 24 hr 08/08/19 08/08/19 08/08/19 11:30 16:23 20:20 WBC RBC Hgb Hct MCV MCH MCHC RDW Std Deviation RDW Coeff of Veronica Plt Count MPV Immature Gran % (Auto) Neut % (Auto) Lymph % (Auto) Crowley % (Auto) Eos % (Auto) Baso % (Auto) Immature Gran # (Auto) Neut # (Auto) Lymph # (Auto) Crowley # (Auto) Eos # (Auto) Baso # (Auto) Absolute Nucleated RBC Nucleated RBC % (auto) Sodium Potassium Chloride Carbon Dioxide Anion Gap BUN Creatinine Est Cr Clr Drug Dosing Est GFR ( Amer) Est GFR (Non-Af Amer) BUN/Creatinine Ratio Glucose POC Glucose 275 H 248 H 217 H Calcium 08/09/19 08/09/19 08/09/19 07:39 07:41 07:41 WBC 6.61 RBC 2.88 L Hgb 9.3 L Hct 27.9 L MCV 96.9 MCH 32.3 MCHC 33.3 RDW Std Deviation 65.0 H RDW Coeff of Veronica 18.8 H Plt Count 215 MPV 9.6 Immature Gran % (Auto) 0.8 Neut % (Auto) 62.3 Lymph % (Auto) 19.8 Crowley % (Auto) 14.1 Eos % (Auto) 2.4 Baso % (Auto) 0.6 Immature Gran # (Auto) 0.05 H Neut # (Auto) 4.12 Lymph # (Auto) 1.31 Crowley # (Auto) 0.93 H Eos # (Auto) 0.16 Baso # (Auto) 0.04 Absolute Nucleated RBC 0.05 H Nucleated RBC % (auto) 0.7 Sodium 131 L Potassium 4.7 Chloride 94 L Carbon Dioxide 23 Anion Gap 14.0 H BUN 30 H Creatinine 7.08 H* D Est Cr Clr Drug Dosing 9.1 Est GFR ( Amer) 6.2 Est GFR (Non-Af Amer) 5.4 BUN/Creatinine Ratio 4.2 L Glucose 137 H POC Glucose 162 H Calcium 9.2 PG Care Time/CCT Total # of Minutes Spent Total Time Spent with Patient: Total time spent is greater than 50% in coordination of care (as documented) at patient's floor/unit and/or counseling patient: Coding Level of Care Code 06332 Subseq Hosp Care Lvl 3 Diagnoses End-stage renal disease (ESRD) N18.6 Non-ST elevation [place] (NSTEMI) I21.4 Fever R50.9
[2019-08-09] MEDS ORDERED: EPOETIN ALFA 10,000 UNITS/ML VIAL IV ONE (09:52)
[2019-08-09] MEDS ORDERED: IRON SUCROSE 100 MG in SYRINGE 0 ML IV SCH (10:30)
[2019-08-09] MEDS ORDERED: bisacodyL 10 MG SUPP PR STA (16:46)
[2019-08-09] MEDS: DOCUSATE SODIUM 100 MG CAP PO SCH ×2 (17:27→21:53)
[2019-08-09] MEDS: AMOXICILLIN/CLAVULANATE 500 MG TAB PO SCH (17:27)
--- NOTE | 2019-08-09 18:26 | Hospitalist Progress Note ---
Date of Service August 09, 2019 Assessment & Plan (1) Non-ST elevation LA (NSTEMI): 69-year-old female with PMHx significant for DMII, ESRD on dialysis MWF, diastolic CHF, HTN, HLD who was admitted with NSTEMI and LLL pneumonia. NSTEMI -Pt presented with left shoulder pain, noted ST depressions in anterolateral leads, ST elevations in V2 and aVR -Troponin 12.9 on admission, trended down to 9.19 on Aug 03. -Echo noted no systolic dysfunction or wall motion abnormalities -cardiac cath 08/04/2019 with 95% LAD, 100% circumflex and 95% distal RCA occlusion. Repeat PCI 08/07/2019 for LAD and RCA revascularization, high risk candidate for bypass surgery. 3 more stents placed. -continue ASA, atorvastatin 40mg daily, Plavix 75mg daily and metoprolol tartrate 100mg BID -continue home amiodarone (see below) -continue to monitor blood pressures- have been on lower side. -appreciate PT/OT recs--to determine whether inpt rehab or home with home health services. Pt adamant she does not want inpt rehab. Pneumonia: -Pt reported fever, cough, SOB on admission -chest XR with LLL basilar opacity vs. atelectasis -WBC not increased, flu negative. -Lactate 2.2 on admission, downtrended, procal 1.06 -Blood Cx-NGTD -Initially given Cefepime, levaquin and Vancomycin. -Currently being treated with po Augmentin-Day 8 of abx treatment Cystitis: -Pt reported foul-smelling urine. -UCx growing E coli, pansensitive -on Augmentin as above with previous administration of levaquin and cefepime for pneumonia above. ESRD -Is usually on dialysis MWF weekly - most recently Aug 09 -Continue Procrit. Chronic: - Hypertension, hyperlipidemia, peripheral vascular disease: See NSTEMI meds above. - AVNRT, left posterior fascicular block, palpitations, paroxysmal a fib, par oxysmal SVT, right BBB: Continue home amiodarone. - Chronic diastolic CHF: Continue home Lasix 40 mg twice daily. - Anemia, previous GI bleed, colon cancer: Admit hemoglobin 10.1, similar to the baseline 10s. Stable around 8.7 today. - Type 2 diabetes: On Lantus and insulin sliding scale. HbA1c 7.6. - Diabetic neuropathy: Continue home pregabalin. - Sleep apnea, morbid obesity: Patient says she stopped using CPAP years ago. - Hypothyroidism: Continue home levothyroxine. - Chronic hyponatremia: Admit sodium 130, currently 129. Code status: Full code. FEN/GI: Heart healthy, DM2, renal dialysis. DVT prophy: Heparin infusion. PT/OT: Ordered, appreciate recs Dispo: Admitted to PCU telemetry. At baseline lives at home with . Admission and Anticipated Discharge Date Admission Date: August 02, 2019 Supervising Physician Co-Signing Physician Notes Resident Physician Supervision Note: I independently interviewed and examined the patient and verified the sierra history and physical, reviewed labs and image studies, discussed the case with the resident Dr. Guzman and agree with the findings and care plan. Subjective Pt was away most of the day for dialysis. Seen in PM, stated she was tired. Denies any headache, changes to vision, cough, runny nose, sore throat, chest pain, SOB, palpitations, abdominal pain, diarrhea or constipation(stated she has moved her bowels), swelling in hands or feet or numbness or tingling anywhere. Review of Systems Review of Systems: All systems reviewed & are unremarkable except as noted in Subjective Physical Exam Physical Exam: General: Alert, oriented. No acute distress, laying in bed. Skin: No noted rashes or bruises Psych: Appropriate mood and affect Neuro: No gross deficits HEENT: NC/AT, PERRLA, EOMI, oropharynx moist. Chest: Nontender to palpation. CV: RRR, Normal s1, s2. No murmurs appreciated Resp: Breath sounds clear bilaterally on front, no increased effort of breathing. No crackles/rhonchi/rales. Abdomen: Soft, nontender, nondistended, noted umbilical hernia. No guarding. No organomegaly appreciated. Extremities: No edema in left lower extremity, right BKA Results & Data ([facility]) Vital Signs (Past 12 Hours) Vital Signs Temp Pulse Pulse Pulse Pulse Resp BP 08/09/19 16:00 74 08/09/19 15:47 36.4 C L 76 20 08/09/19 14:47 36.2 C L 76 18 08/09/19 13:55 36.6 C 73 02/12/20 13:40 75 108/49 L 08/09/19 13:20 73 100/48 L 08/09/19 13:00 75 102/48 L 08/09/19 12:40 73 97/52 L 08/09/19 12:20 73 87/47 L 08/09/19 12:00 75 91/50 L 08/09/19 11:40 72 93/73 L 08/09/19 11:20 73 83/41 L 08/09/19 11:00 77 85/44 L 08/09/19 10:40 77 105/55 L 08/09/19 10:20 76 112/59 L 08/09/19 10:10 36.6 C 77 08/09/19 08:00 73 08/09/19 07:47 36.8 C 72 17 BP Pulse Ox 08/09/19 16:00 08/09/19 15:47 102/65 91 08/09/19 14:47 117/64 92 08/09/19 13:55 108/59 L 08/09/19 13:40 08/09/19 13:20 08/09/19 13:00 08/09/19 12:40 08/09/19 12:20 08/09/19 12:00 08/09/19 11:40 08/09/19 11:20 08/09/19 11:00 08/09/19 10:40 08/09/19 10:20 08/09/19 10:10 08/09/19 08:00 08/09/19 07:47 120/65 94 Resident Activity Tracking Resident Involvement: Resident Care Provided Care Provided: Adult Hospital Medicine
[2019-08-09] MEDS: ONDANSETRON INJ 2 MG/ML 2 ML VIAL IV PRN (20:22)
[2019-08-09] MEDS: ASPIRIN 81 MG ECTAB PO SCH (21:54)
[2019-08-09] MEDS: LATANOPROST 0.005% OP SOLN 2.5 ML BTL OPB SCH (21:55)
[2019-08-09] MEDS: OXYCODONE/ACETAMINOPHEN 5mg/325mg TAB PO PRN (22:04)
[2019-08-10] MEDS: NITROGLYCERIN 2% OINTMENT 30GM TUBE EXT SCH ×3 (00:48→12:26)
[2019-08-10] MEDS: METOPROLOL TARTRATE 50 MG TAB PO SCH ×2 (05:30→14:24)
[2019-08-10] MEDS: LEVOTHYROXINE SODIUM 50 MCG TABLET PO SCH (06:31)
[2019-08-10 07:47] LABS: Basophils # (auto) 0.03 K/uL (0-0.2); Basophils % (auto) 0.5 %; Eosinophils # (auto) 0.13 K/uL (0-0.5); Hemoglobin 9.5 g/dL (12.0-16.0); Immature Granulocytes # (auto) 0.04 K/uL (0.00-0.02); Immature Granulocytes % (auto) 0.6 %; Lymphocytes # (auto) 1.15 K/uL (1.2-3.4); Lymphocytes % (auto) 17.6 %; Mean Corpuscular Hemoglobin 31.8 pg (25-34); Mean Corpuscular Hgb Conc 31.7 g/dL (32-36); Mean Corpuscular Volume 100.3 fL (80-100); Mean Platelet Volume 9.9 fL (7.4-10.4); Monocytes % (auto) 12.3 %; Neutrophils # (auto) 4.38 K/uL (1.4-6.5); Nucleated RBC # (auto) 0.11 K/uL (0-0); Nucleated RBC % (auto) 1.7 %; Platelet Count 199 K/uL (130-400); RDW Coefficient of Variation 19.1 % (11.5-14.5); RDW Standard Deviation 68.7 fL (36.4-46.3); Red Blood Count 2.99 M/uL (4.2-5.4); White Blood Count 6.53 K/uL (4.8-10.8)
[2019-08-10 08:31] LABS: BUN Creatinine Ratio 3.8 (10-20); Calcium 9.4 mg/dl (8.5-10.1); Creatinine Clr Calc Pharmacy 12.1 ml/min; Est GFR (African American) 8.9; Est GFR (Non-African American) 7.6; Potassium 3.9 mmol/L (3.5-5.1)
[2019-08-10] MEDS: PREGABALIN 25 MG CAP PO SCH (08:39)
[2019-08-10] MEDS: CLOPIDOGREL BISULFATE 75 MG TAB PO SCH (08:39)
[2019-08-10] MEDS: FUROSEMIDE 40 MG TAB PO SCH (08:39)
[2019-08-10] MEDS: ATORVASTATIN 40 MG TAB PO SCH (08:39)
[2019-08-10] MEDS: OMEGA-3 (PURIFIED FISH OIL) 1 GM CAP PO SCH (08:40)
[2019-08-10] MEDS: AMIODARONE 200 MG TAB PO SCH (08:40)
[2019-08-10] MEDS: AURYXIA PO SCH ×2 (08:41→12:27)
[2019-08-10] MEDS: INSULIN GLARGINE SOLOSTAR 100 UNITS/ML 3 ML PEN SQ SCH (08:42)
[2019-08-10] MEDS: INSULIN ASPART 100 UNITS/ML 3 ML PEN SC SCH ×2 (08:43→12:24)
[2019-08-10] MEDS: DOCUSATE SODIUM 100 MG CAP PO SCH (08:46)
--- NOTE | 2019-08-10 09:48 | Nephrology Progress Note ---
Date of Service August 10, 2019 Assessment & Plan (1) End-stage renal disease (ESRD): -- HD completed yesterday -- BP, volume status, and electrolytes are acceptable -- Plan next HD for Wednesday; if DC'd resume TTS outpatient schedule -- Procrit 34356 units + venofer 100 mg provided with HD yesterday for anemia (2) Non-ST elevation IN (NSTEMI): -- PCI 08/07/19 (3) Fever: -- Defervesced. Remains on Augmentin for UTI =/- pna. Urine culture + for pansensitive E. Coli Subjective No acute events overnight. Umu feels well today. Tolerated HD yesterday without complications. Seen and evaluated with her at the bedside. Hopes to be discharged home today. Review of Systems Review of Systems: All systems reviewed & are unremarkable except as noted in HPI & below Physical Exam Constitutional: well developed; no acute distress Eyes: no scleral abnormality and no corneal abnormality ENMT: Mouth: no oral mucosal abnormality and oral mucous membranes not dry Neck: normal visual inspection and trachea midline Respiratory: normal respiratory effort Auscultation: lungs clear to auscultation bilaterally Cardiovascular: Rate/Rhythm: regular rate Heart Sounds: normal S1, normal S2 and + murmur Extremities: + AV fistula; no edema Musculoskeletal: Extremities: no cyanosis and no clubbing Skin: normal turgor; no lesions Neurologic: Motor/Sensory: no tremor and no asterixis Psychiatric: Orientation: alert and oriented x 3 Results & Data Vital Signs (Past 12 Hours) Vital Signs Temp Pulse Resp BP Pulse Ox 08/10/19 07:09 36.7 C 75 20 108/68 94 08/10/19 03:39 36.8 C 71 18 97/62 L 94 08/09/19 23:12 36.9 C 75 18 103/65 93 Laboratory Results Laboratory Results - last 24 hr 08/09/19 08/09/19 08/09/19 14:22 16:19 20:21 WBC RBC Hgb Hct MCV MCH MCHC RDW Std Deviation RDW Coeff of Veronica Plt Count MPV Immature Gran % (Auto) Neut % (Auto) Lymph % (Auto) [place] % (Auto) Eos % (Auto) Baso % (Auto) Immature Gran # (Auto) Neut # (Auto) Lymph # (Auto) [place] # (Auto) Eos # (Auto) Baso # (Auto) Absolute Nucleated RBC Nucleated RBC % (auto) Sodium Potassium Chloride Carbon Dioxide Anion Gap BUN Creatinine Est Cr Clr Drug Dosing Est GFR ( Amer) Est GFR (Non-Af Amer) BUN/Creatinine Ratio Glucose POC Glucose 116 H 259 H 203 H Calcium 08/10/19 08/10/19 08/10/19 07:17 07:17 07:34 WBC 6.53 RBC 2.99 L Hgb 9.5 L Hct 30.0 L MCV 100.3 H MCH 31.8 MCHC 31.7 L RDW Std Deviation 68.7 H RDW Coeff of Veronica 19.1 H Plt Count 199 MPV 9.9 Immature Gran % (Auto) 0.6 Neut % (Auto) 67.0 Lymph % (Auto) 17.6 [place] % (Auto) 12.3 Eos % (Auto) 2.0 Baso % (Auto) 0.5 Immature Gran # (Auto) 0.04 H Neut # (Auto) 4.38 Lymph # (Auto) 1.15 L [place] # (Auto) 0.80 H Eos # (Auto) 0.13 Baso # (Auto) 0.03 Absolute Nucleated RBC 0.11 H Nucleated RBC % (auto) 1.7 Sodium 133 L Potassium 3.9 D Chloride 96 L Carbon Dioxide 25 Anion Gap 12.0 H BUN 20 H Creatinine 5.27 H* D Est Cr Clr Drug Dosing 12.1 Est GFR ( Amer) 8.9 Est GFR (Non-Af Amer) 7.6 BUN/Creatinine Ratio 3.8 L Glucose 170 H POC Glucose 192 H Calcium 9.4 PG Care Time/CCT Total # of Minutes Spent Total Time Spent with Patient: Total time spent is greater than 50% in coordination of care (as documented) at patient's floor/unit and/or counseling patient: Coding Level of Care Code 88245 Subseq Hosp Care Lvl 3 Diagnoses End-stage renal disease (ESRD) N18.6 Non-ST elevation IN (NSTEMI) I21.4 Fever R50.9
--- NOTE | 2019-08-10 14:04 | Discharge Summary ---
Date of Service August 10, 2019 Admission HPI Per Admitting Provider The patient is a 69-year-old female with a past medical history including NSTEMI, acute pyelonephritis, ESRD on HD, morbid obesity, hyperglycemia, pulmonary edema, acute respiratory distress, septic shock, acute respiratory failure, metabolic encephalopathy, hyponatremia, diabetic foot ulcer, diabetic nephropathy, neuropathy and retinopathy, paroxysmal atrial fibrillation, paroxysmal supraventricular tachycardia and colon cancer. She presents to the emergency department with persistent and worsening shortness of breath, fatigue, chest discomfort, temperature, cough and foul-smelling urine Admission Exam Per Admitting Provider The patient is a 69-year-old female with a past medical history including NSTEMI, acute pyelonephritis, ESRD on HD, morbid obesity, hyperglycemia, pulmonary edema, acute respiratory distress, septic shock, acute respiratory failure, metabolic encephalopathy, hyponatremia, diabetic foot ulcer, diabetic nephropathy, neuropathy and retinopathy, paroxysmal atrial fibrillation, paroxysmal supraventricular tachycardia and colon cancer. She presents to the emergency department with persistent and worsening shortness of breath, fatigue, chest discomfort, temperature, cough and foul-smelling urine Principal Diagnosis Myocardial Infarction Pneumonia Discharge Exam General: Alert, oriented. No acute distress, laying in bed. Skin: No noted rashes or bruises Psych: Appropriate mood and affect Neuro: No gross deficits HEENT: NC/AT, PERRLA, EOMI, oropharynx moist. Chest: Nontender to palpation. CV: RRR, Normal s1, s2. No murmurs appreciated Resp: Breath sounds clear bilaterally on front, no increased effort of breathing. No crackles/rhonchi/rales. Abdomen: Soft, nontender, nondistended, noted umbilical hernia. No guarding. No organomegaly appreciated. Extremities: No edema in left lower extremity, right BKA Discharge Data Allergies Allergy/AdvReac Type Severity Reaction Status Date / Time No Known Allergies Allergy Verified 07/07/19 10:22 Consultations 08/02/19 19:59 ED Decision to Admit Stat 08/02/19 23:14 Consult Cardiology Routine Consult Case Management - Discharge Planning Routine 08/03/19 09:30 Consult Nephrology Routine 08/10/19 13:55 Consult Case Management - Discharge Planning Routine Procedures Performed Operation Date: 08/04/19 12:00 Actual Procedures p Cath, Left with Cors and Vent - Alcides Hernandez MD s Cineradiography w/Routine Exam - Alcides Hernandez MD Operation Date: 08/07/19 12:00 Actual Procedures p Cineradiography w/Routine Exam - Alcides Hernandez MD p Drug Eluting Stent SGl Vessel - Alcides Hernandez MD s Drug Eluting Stent each ADDTL Vessel - Alcides Hernandez MD s Cath, Coronaries ONLY (no LV) - Alcides Hernandez MD s Ultrasound Vascular Access - Alcides Hernandez MD Ordered Studies 08/04/19 07:23 CL Cath Imgs for PACS use only Routine 08/07/19 06:49 CL Cath Imgs for PACS use only Routine 08/07/19 14:08 CL Cath Imgs for PACS use only Routine Hospital Course (1) Non-ST elevation [place] (NSTEMI): 69-year-old female with PMHx significant for DMII, ESRD on dialysis MWF, diastolic CHF, HTN, HLD who was admitted with NSTEMI and LLL pneumonia. Admitted on August 02 2019 and discharged on Aug 10, 2019. NSTEMI -Pt presented with left shoulder pain, noted ST depressions in anterolateral leads, ST elevations in V2 and aVR -Troponin 12.9 on admission, trended down to 9.19 on Aug 03. -Echo noted no systolic dysfunction or wall motion abnormalities -cardiac cath 08/04/2019 with 95% LAD, 100% circumflex and 95% distal RCA occlusion. Repeat PCI 08/07/2019 for LAD and RCA revascularization, high risk candidate for bypass surgery. 3 more stents placed. -ASA, atorvastatin 40mg daily, Plavix 75mg daily. Continued on discharge - metoprolol tartrate 50mg q8h while hospitalized, discharged with 50mg BID since hypotensive. Advised f/u with typing pool supervisor for continued monitoring and titration up. -continued amiodarone 200mg BID. Pneumonia: -Pt reported fever, cough, SOB on admission -chest XR with LLL basilar opacity vs. atelectasis -WBC not increased, flu negative. -Lactate 2.2 on admission, downtrended, procal 1.06 -Blood Cx-NGTD -Initially given Cefepime, levaquin and Vancomycin. -Transitioned to po Augmentin that was renally dosed given her kidney failure and discharged with 2 more days for a total of 10 days of treatment. Cystitis: -Pt reported foul-smelling urine. -UCx growing E coli, pansensitive -on Augmentin as above with previous administration of levaquin and cefepime for pneumonia above. ESRD -Is usually on dialysis MWF weekly - most recently Aug 09 -Continued Procrit. Chronic: - Hypertension, hyperlipidemia, peripheral vascular disease: See NSTEMI meds above. - AVNRT, left posterior fascicular block, palpitations, paroxysmal a fib, paroxysmal SVT, right BBB: Continued home amiodarone. - Chronic diastolic CHF: Continued home Lasix 40 mg twice daily. - Anemia, previous GI bleed, colon cancer: Admit hemoglobin 10.1, similar to the baseline 10s. Stable. - Type 2 diabetes: On Lantus and insulin sliding scale. HbA1c 7.6. restarted home regimen on discharge. - Diabetic neuropathy: Continued home pregabalin. - Sleep apnea, morbid obesity: Patient says she stopped using CPAP years ago. PCP f/u recommended. - Hypothyroidism: Continued home levothyroxine. - Chronic hyponatremia: Admit sodium 130, discharge 133. Disposition -Though pt was a candidate for inpatient rehab services, she declined placement opting for discharge home with home health services. Total Time Total Time Spent Total Time Spent (In Minutes): See attending attestation Discharge Plan Discharge Items Patient Disposition: Home - Home Health Services Reason For Visit: NSTEMI, PNEUMONIA, UTI Discharge Diagnosis: Myocardial Infarction Pneumonia Cystitis Activity: Per Instructions section Non-emergency contact: Primary Care Provider and Wallboard Worker Call non-emergency contact if: your symptoms worsen and you have a fever Follow-up/Referrals: Phill Ramirez III, CRNP [Primary Care Provider] - 08/16/19 9:20 am (Please follow up with [facility] at [facility] with RADHA Abel on WednesdayAugust 16 at 9:20 am. *If you are unable to keep this appointment, please call the office to re- schedule at [phone].) Rita Shah PA-C [Physician Accounting Technician] - 08/23/19 1:30 pm (Please follow up with [facility] at [facility] with Rita Shah PA-C on WednesdayAugust 23 at 1:30 pm. Please arrive to the office at 1:15 pm. *If you are unable to keep this appointment, please call the office to re- schedule at [phone].) Diet: Dialysis Renal and Heart Healthy Add Attending Provider Instructions: Mrs. Bennett you are being discharged home with home health services. Regarding your heart attack: -Your symptoms have improved significantly after your procedures. -Please continue to take the following medications at home: Aspirin 81mg daily, atorvastatin 40mg daily, clopidogrel 75mg daily, amiodarone 200mg twice a day. -Given that your blood pressure has been on the lower end, we decreased your dose of metoprolol tartrate to 50mg twice a day. We ask that follow closely with your typing pool supervisor to determine whether this dose can be increased. -The medications have been sent to your pharmacy. -Given that you have had a heart attack, it is even more important now to keep close followup with your typing pool supervisor and your primary care provider. Regarding your Pneumonia and cystitis -Take the antibiotic Augmentin 500-125mg you are being prescribed. Take one pill for the next two days like you had been doing here. -Please followup with your primary care provider for the pneumonia and cystitis as well after discharge. It was a pleasure taking care of you during your stay here! Pending Studies at Discharge: No Stand-Alone Forms: My [facility], Smoking Cessation Medications and DC Order Prescriptions: New amoxicillin-pot clavulanate 500-125 mg Tablet 1 tab PO QDD Qty: 2 RF: 0 atorvastatin 40 mg Tablet 40 mg PO QAM 30 Days Qty: 30 RF: 0 amiodarone 200 mg Tablet 200 mg PO BID 30 Days Qty: 60 RF: 0 clopidogrel 75 mg Tablet 75 mg PO DAILY 30 Days Qty: 30 RF: 0 metoprolol tartrate 50 mg Tablet 50 mg PO BID 30 Days Qty: 60 RF: 0 aspirin [Ecotrin Low Strength] 81 mg Tablet,Delayed Release (Dr/Ec) 81 mg PO HS 30 Days Qty: 30 RF: 0 Continued oxycodone-acetaminophen [Percocet] 5-325 mg tablet 1 tab PO DAILY PRN (Reason: Pain) Qty: 30 RF: 0 insulin aspart U-100 100 unit/mL (3 mL) insulin pen See Rx Instructions .ROUTE .COMPLEX Qty: 15 RF: 5 clopidogrel 75 mg tablet 75 mg PO DAILY Qty: 90 RF: 1 pregabalin 25 mg capsule 25 mg PO BID Qty: 60 RF: 0 Lantus Solostar U-100 Insulin 100 unit/mL (3 mL) insulin pen See Rx Instructions subcut .COMPLEX Qty: 30 RF: 5 latanoprost 0.005 % drops 1 drp OPB HS RF: 0 levothyroxine 50 mcg tablet 50 mcg PO QAM RF: 0 omega-3 acid ethyl esters 1 gram capsule 1 g PO DAILY RF: 0 aspirin [Aspir-81] 81 mg Tablet,Delayed Release (Dr/Ec) 81 mg PO HS RF: 0 cholecalciferol (vitamin D3) 50,000 unit Tablet 50,000 units PO WK RF: 0 Auryxia 210 mg iron tablet 2 tab PO TIDM RF: 0 furosemide 40 mg tablet 40 mg PO BID RF: 0 amiodarone 200 mg tablet 200 mg PO BID RF: 0 atorvastatin 40 mg Tablet 40 mg PO QAM Qty: 30 RF: 0 Discontinued metoprolol tartrate 100 mg tablet 100 mg PO BID Qty: 180 RF: 1 Discharge Orders: Discharge Order (Routine); Ordered 08/10/19 Ordered By: Geno Guzman Admission Data Admit Date/Time: 08/02/19 21:24 Attending Provider: Charla Monge Admit Provider: Ranjit Ren Primary Care Provider: Phill Ramirez III Other Providers: Ranjit Ren ; Alcides Hernandez ; Zander Jordan ; Yasir Ewing ; [facility] Other Interventions: Discharge Summary Assessment (RN) Last Done: 08/10/19 14:37 DC Date/Time DO NOT enter until pt leaves facility: 08/10/19 15:41 Supervising Physician Co-Signing Physician Notes Resident Physician Supervision Note: I independently interviewed and examined the patient and verified the sierra history and physical, reviewed labs and image studies, discussed the case with the resident Dr. Guzman and agree with the findings and care plan. Resident Activity Tracking Resident Involvement: Resident Care Provided Care Provided: Adult Hospital Medicine
--- NOTE | 2019-08-21 11:04 | Coding Query ---
SEPSIS To promote full compliance with coding requirements relating to patient care, physician participation is requested in all cases of tile roofer uncertainty. Please assist us with the question(s) below: In responding to this query, please exercise your independent professional judgement. The fact that a question is asked does not imply that any particular answer is desired or expected. We appreciate your clarification on this issue. Coding Question: Sepsis was documented in the ER report and PN until 08/05 where it fell off the chart. Please clarify if the patient was treated for Sepsis. Thank you so much for your help with this! Have a great day! (x) Sepsis, POA () Sepsis, not POA () Other, patient has: MTDD
== END 2019-08-10 15:41 | disposition home health service (06) | DRG 853 ==
LOC: ED 18:30 → SUATTDRO 21:24 → 2S 21:24
PROC: CLB.CCO (2019-08-07 12:00)